=== PATIENT | female | born 1950 | race Caucasian/White ===

== ENCOUNTER 2021-07-08 07:48 | Day surgery (SDC) | payer MEDICARE, SELFPAY ==
--- NOTE | 2021-07-02 09:03 | EKG12_ITS ---
Test Reason : PRE OP Blood Pressure : / mmHG Vent. Rate : 060 BPM Atrial Rate : 060 BPM P-R Int : 146 ms QRS Dur : 080 ms QT Int : 446 ms P-R-T Axes : 058 038 044 degrees QTc Int : 446 ms Normal sinus rhythm Low voltage QRS Borderline ECG Confirmed by CESAR CHRISTIANSEN, SULMA ([id number]), technical writer and editor ADI CARDOZA ([id number]) on 07/06/2021 8:27:27 AM Referred By: Arun Sebastian Confirmed By:BRENDA GUERRERO MD
--- NOTE | 2021-07-02 09:05 | RAD_ITS ---
History: PREOP/BREAST CANCER LEFT EXAMINATION/TECHNIQUE: XR Chest 2 Views: COMPARISON: None FINDINGS: LINES/DEVICES: None. LUNGS: No consolidation, edema or effusion. No pneumothorax. MEDIASTINUM AND CARDIOVASCULAR STRUCTURES: Cardiac silhouette not enlarged. Central airways and mediastinal contour are unremarkable. Lobulated contour of the lateral aspect of the left hemidiaphragm consistent with diaphragmatic hernia. BONES AND SOFT TISSUES: Unremarkable. RAD/Chest PA and Lateral IMPRESSION: No radiographic evidence of acute cardiopulmonary disease. Left posterior diaphragmatic hernia. Recommend comparison with old studies or short-term follow-up. at 0939 Reported and signed by: Terrence Mariano MD Electronically Signed: Terrence Mariano MD at 9:38 EDT Tel , Service support ,
[2021-07-02 09:51] LABS: Hematocrit 44.5 % (37-47); Hemoglobin 14.9 g/dL (12.0-15.0); Mean Corp Hgb Conc 33.5 g/dL (32-36); Mean Corpuscular Hgb 29.9 pg (27.0-32.0); Mean Corpuscular Volume 89.2 fL (81-99); Mean Platelet Vol. 9.3 fl (6.2-12.0); Platelet Count 240 K/mm3 (150-450); RBC Distribution Width CV 12.4 % (11.6-14.6); RBC Distribution Width SD 40.8 fl (35.1-43.9); Red Blood Count 4.99 M/mm3 (4.2-5.4); White Blood Count 5.5 K/mm3 (4.4-11.0)
[2021-07-02 10:25] LABS: ALB/GLOB Ratio 0.9 RATIO (0.9-2.4); AST(SGOT) 18 U/L (15-37); Alanine Aminotransfer ALT/SGPT 25 U/L (13-56); Albumin, Serum 3.5 g/dL (3.2-5.0); Alkaline Phosphatase 80 U/L (45-117); Anion Gap 2 (5-15); BUN 16 mg/dL (7-18); BUN/Creat Ratio 26.1 RATIO (10-20); Calcium,Total 8.7 mg/dL (8.5-10.1); Chloride 110 mmol/L (98-107); Creatinine, Serum 0.61 mg/dL (0.55-1.02); EST Glomerular Filtration Rate 103 mL/min (>60); Est Glom Filt Rate - Afr Amer 125 mL/min (>60); Globulin 3.9 g/dL (2.2-4.2); Glucose 84 mg/dL (74-106); Potassium 3.4 mmol/L (3.5-5.1); Protein, Total 7.4 g/dL (6.4-8.2); Sodium Level 140 mmol/L (136-145)
[2021-07-08] VITALS (7 sets, daily range): BP systolic 125–142; BP diastolic 63–86; PULSE 60–69; RESP 16; TEMP 36.1–37; O2SAT 92–96; BMI 28.0
--- NOTE | 2021-07-08 | IMM_PTH ---
PATIENT: REBA [place]EC[place]FORD [place] [facility] [id number] AGE/SX: 70/F ROOM: RE07/08/[address]: Dr. Arun Sebastian MD : 1950 BED: DIS: 07/08/2021 SPEC #: [id number] RECD: 07/13/21 12:13 STATUS: KEYONNA REQ #: [id number] ARNIE: 07/08/21 00:[address]: Arun Sebastian DEPT: IMMUNOHISTOCHEMISTRY RECD BY: Giuliana Mejia ENTERED: 07/13/21 12:15 SP TYPE: IMMUNO OTHR DR: Dr. Angel Mcginnis MD Tissues: A - Axillary lymph node, NOS Procedures: CK7 (add) Pankeratin (initial) Pankeratin (add) PHYSICIAN & INSTITUTION [place] [id number] SPECIMEN INFORMATION: Tissue Source: A ? Left axillary sentinel lymph nodes, biopsy Clinical Info: Breast cancer Specimen Number: [id number] A1-A3 CPT code: 66684, 33469 x5 METHODOLOGY: Deparaffinized sections of prefer/formalin-fixed tissue or PAP/DQ stained slides are incubated with monoclonal/polyclonal antibodies/oligonucleotide probes. Localization is made via biotin free immunoperoxidase method. Appropriate controls are performed and reacted as expected. Results on target cell population are indicated in the following table: RESULTS: ANTIBODY / CLONE RESULT Block A1 AE1-3 (AE1/AE3/PCK26) negative CK7 (OV-TL12/30) negative Block A2 AE1-3 (AE1/AE3/PCK26) negative CK7 (OV-TL12/30) negative Block A3 AE1-3 (AE1/AE3/PCK26) negative CK7 (OV-TL12/30) negative These tests were developed and their performance characteristics determined by [facility]. They may not have been cleared or approved by the U.S. Food and Drug Administration. The FDA has determined that such clearance or approval is not necessary. The above immunohistochemical/dualISH markers are ordered and reviewed by the Pathologist. INTERPRETATION: A. Left axillary sentinel lymph nodes, biopsy: Three out of three lymph nodes, negative for metastatic carcinoma. SJ:phuc 07/14/2021
--- NOTE | 2021-07-08 | AXNB_PTH ---
PATIENT: REBA BECKFORD [place] [facility] [id number] AGE/SX: 70/F ROOM: RE07/08/[address]: Dr. Arun Sebastian MD : 1950 BED: DIS: 07/08/2021 SPEC #: [id number] RECD: 07/08/21 11:35 STATUS: KEYONNA RENuha #: [id number] ARNIE: 07/08/21 00:[address]: Arun Sebastian DEPT: SURGICAL PATHOLOGY RECD BY: Cheryl Nicole ENTERED: 07/08/21 13:05 SP TYPE: AX NODE BX OTHR DR: Dr. Angel Mcginnis MD Tissues: A - Axillary lymph node, NOS B - Breast, NOS Procedures: Frozen Section (charge) Frozen Section Add'l ([facility]) Surgery Specimen Level V HEADER OPERATION: Stereotactic wire localized lumpectomy PRE-OP DIAGNOSIS: Breast cancer TISSUE SUBMITTED: A. Left sentinel lymph node, B. Left breast mass FROZEN SECTION DIAGNOSIS A. Left axillary sentinel lymph nodes biopsy: Three out of 3 lymph nodes negative for carcinoma. AM:christal 07/08/21 MICROSCOPIC DIAGNOSIS A. Left axillary sentinel lymph nodes, biopsy: Three out of three lymph nodes negative for metastatic carcinoma. B. Left breast mass, needle localization lumpectomy: Invasive ductal carcinoma. See cancer summary in the comment section. SJ:phuc 07/13/2021 COMMENT A. Immunohistochemistry ([id number]) supports the above diagnosis. B. BREAST CANCER SUMMARY Procedure ? lumpectomy with wire-guided localization Specimen laterality ? left Invasive tumor: Tumor site ? upper inner quadrant as per EMR Tumor size ? 0.5 x 0.2 cm (measured microscopically) Histologic type ? invasive ductal carcinoma, not otherwise specified Histologic grade (Evelyn grade): Glandular/tubular differentiation score - 3 Nuclear pleomorphism score - 3 Mitotic count score - 2 Overall grade ? grade 3 (score of 8) Tumor focality ? single focus of invasive carcinoma Ductal carcinoma in situ ? not identified Tumor extension: Skin ? not present Nipple ? not applicable Skeletal muscle ? no skeletal muscle is present Margins: Invasive carcinoma margin ? The invasive carcinoma is 0.5 cm away from closest inferior margin. Ductal carcinoma in situ margin ? not applicable Regional lymph nodes: Number of lymph nodes examined ? 3 Number of sentinel lymph nodes examined - 3 Number of lymph nodes with macrometastases, micrometastases or isolated tumor cells - 0 Treatment effect ? no known presurgical therapy. Lymphvascular invasion ? not identified Dermal lymphvascular invasion ? not applicable Additional Pathologic Findings ? fibrocystic changes. Ancillary Studies: Previously performed at [facility] ([id number]) ER: Positive (50%, moderate) AR: Positive (10%, moderate to strong) [id number]: Equivocal (2+) [id number] AMAIRANI ? negative (non-amplified) Microcalcifications ? not identified Clinical History - Please make reference to previous specimen from [facility] ([id number]) left breast, ultrasound-guided core needle biopsy with diagnosis of ?invasive ductal carcinoma, grade 2-3.? PATHOLOGIC STAGE: pT1a pN0(sn) pMx The above summary is in compliance with [employer] [place] [employer] (CAP) Cancer Protocols Checklist and [place] Joint Committee on Cancer (AJCC), Staging Manual, 8th Ed. Case has been reviewed in consultation with Dr. Castañeda who concurs with the above diagnosis. IDC:AM MICROSCOPIC DESCRIPTION Slides are reviewed. GROSS DESCRIPTION A - Received fresh for frozen section consultation labeled with the patient's name is a specimen designated left sentinel lymph node. The specimen consists of two irregular fragments of cazares-yellow fibrofatty tissue. One fragment measures 2 x 2 x 0.7 cm and the other fragment measures 4 x 4 x 1.5 cm. Dissection of the fragments reveal three nodules resembling lymph nodes ranging in size from 0.5 to 2 cm. The specimen is totally submitted in three cassettes as follows: 1 & 2 - one lymph node bisected, 3??two lymph nodes. / AM:phuc 07/09/21 B - Received fresh for OR consultation labeled with the patient name and designated left breast mass. The specimen consists of an oriented fragment of cazares-yellow fibrofatty tissue containing a wire. The specimen measures 5 x 5 x 2 cm. The specimen weighs 21.8 gm. The specimen is differentially inked as follows: anterior - yellow, posterior - black, superior - blue, inferior - green, medial - red and lateral - orange. Serial sections reveal a 6 mm biopsy cavity with area of induration adjacent to it. This biopsy cavity and possible lesion is located 0.5 cm from its closest (inferior) margin of excision. This information is conveyed to the surgeon intraoperatively. [place] sections are submitted as follows: 1 & 2 - perpendicular inked margins, 3-5 - biopsy cavity with adjacent tissue, 6-12 - route service representative sections of uninvolved breast parenchyma. / AM:phuc 07/09/21 TC:0 CPT: 81570 x2, 88814, 39064 x2, 87079
[2021-07-08] MEDS: Lactated Ringers 1,000 ML 100 ML IV (08:00)
--- NOTE | 2021-07-08 08:00 | NM_ITS ---
PROCEDURE: NUCLEAR MEDICINE Injection Sorento Node - LEFT breast(s). REASON FOR EXAM: Female, 70 years old. Left breast cancer. TECHNIQUE: Sorento node localization using radionuclide methods of the LEFT breast(s) was performed following subcutaneous administration of 1.1 mCi of of sulfur colloid Tc-99m. FINDINGS: 1.1 mCi of technetium labeled sulfur colloid was injected subcutaneously in 4 equal aliquots in the medial periareolar region of the left breast. NM/Lymph Node Injection Only IMPRESSION: Subcutaneous injection of 1.1 mCi of Tc labeled sulfur colloid for sentinel node imaging. Electronically Signed: Wilian So MD at 8:58 EDT , Service support ,
--- NOTE | 2021-07-08 09:26 | PCM.HP.BLA ---
History and Physical Date of Admission: 07/08/21 Assessment and Plan Assessment and Plan (1) Breast cancer in female: Status: Acute Qualifiers: Breast location: upper inner quadrant of breast Estrogen receptor status: positive Laterality: left Qualified Code(s): C50.212 - Malignant neoplasm of upper-inner quadrant of left female breast; Z17.0 - Estrogen receptor positive status [ER+] Comment: June 22, 2021 I now have information from [facility] suggesting Her2 dual AMAIRANI was negative, nonamplified I would anticipate proceeding with definitive surgery pending hematology oncology consultation Arun Sebastian M.D., F.A.C.S. Recommendations had been made by Dr. Arturo Olivas for genetic testing preoperatively. If abnormal then bilateral mastectomy would be recommended. He states that the patient was not interested in pursuing this and having a delay in surgery. Please refer to his more complete consultation. Arun Sebastian M.D., Ryan.Silvina.C.S. 06/22/21 [id number]<Electronically signed by Arun Sebastian MD>Date Arun Sebastian MD cc: Dr. Arturo Olivas MD; Dr. Angel Mcginnis MD ~*Signed ADDENDUM by Dr. Arun Sebastian MD on 06/22/21 at 1212 Intake Chief Complaint: breast cancer--discuss surgery Allergies naproxen [From Naprosyn] Adverse Reaction (Unknown, Verified 06/21/21 15:20) Hives Medications NK 06/18/21 [History Confirmed 06/21/21] Assessment and Plan Assessment and Plan (1) Breast cancer in female: Status: Acute Qualifiers: Breast location: upper inner quadrant of breast Estrogen receptor status: positive Laterality: left Qualified Code(s): C50.212 - Malignant neoplasm of upper-inner quadrant of left female breast; Z17.0 - Estrogen receptor positive status [ER+] Comment: June 22, 2021 I now have information from [facility] suggesting Her2 dual AMAIRANI was negative, nonamplified I would anticipate proceeding with definitive surgery pending hematology oncology consultation Arun Sebastian M.D., F.A.C.S. 06/22/21 1212<Electronically signed by Arun Sebastian MD>Date Arun Sebastian MD cc: Dr. Arturo Olivas MD; Dr. Angel Mcginnis MD ~*Signed Intake Vital Signs 06/21/21 15:19 Height 5 ft 8 in Weight: 187 lb 2 oz BMI 28.4 BP 157/81 H Blood Pressure Location Rt brachial Position Sitting Respiration 20 H Pulse 68 Pulse Source NIBP Temp 97.8 F Temp Source Temporal Pulse Oximetry (%) 96 Oxygen Delivery Method room air Intake Visit Reasons: DISCUSS SURGERY Chief Complaint: breast cancer--discuss surgery Collection Clerk Required: No Is patient in pain?: No Allergies naproxen [From Naprosyn] Adverse Reaction (Unknown, Verified 06/21/21 15:20) Hives Medications NK 06/18/21 [History Confirmed 06/21/21] Is last menstrual period known: No Post menopausal: Yes Patient : No PFSH Medical History (Updated 06/21/21 @ 15:18 by Ban Daugherty) Breast cancer, left breast (~05/2021) History of colonic polyps Multinodular non-toxic goiter Surgical History (Updated 06/21/21 @ 15:18 by Ban Daugherty) History of colonoscopy (~03/2017) History of left breast biopsy (~05/2021) History of right breast biopsy (~1980) Family History (Updated 06/21/21 @ 15:19 by Ban Daugherty) Brother Colon cancer Hypertension Cancer Mother Breast cancer Sister Breast cancer Aunt Breast cancer Other Leukemia Lymphoma Throat cancer Social History Smoking Status: Never smoker alcohol intake: never substance use type: does not use HPI HPI HPI: REBA BECKFORD, is a 70 F who presents to the office today for surgical consultation in referral from Dr. Angel Mcginnis with biopsy identified left breast. In [facility] on May 25, 2021 screening mammography identified a well-defined ovoid mass for posterior medial left breast BI-RADS Category 0. Subsequently on June 03, 2021 a left breast ultrasound was obtained. The 10 o'clock position left breast 11 cm from the nipple there is a small rounded mass microlobulated measuring 5 x 4 x 3 mm biopsy recommended category 4. Subsequently on June 09, 2021 a ultrasound-guided needle core biopsy was performed of this lesion. Invasive ductal carcinoma grade 2-3 was identified measuring up to 0.5 cm in greatest length. Estrogen receptor was felt to be positive at 50%. Progesterone receptor is felt to be positive at 10%. HER-2/asif was equivocal 70-year-old female. G2, . Menarche at age 14. First child born when she was 30. She did breast-feed. She has had a remote excisional right breast biopsy when she was approximately 31. That was for benign palpable mass. She has not been on any estrogen replacement therapy. Family history is notable that her mother had breast cancer. 2 sisters had breast cancer. The patient has had a daughter who is undergone genetic testing which was negative. The patient has not had COVID-19. She and her have received Covid vaccination. ROS General General: Yes breast cancer; No weight change, appetite, fatigue, colon cancer or weakness HEENT HEENT: No difficulty swallowing, eye injury, eye surgery, swollen glands or hoarseness Endo Endocrine: No thyroid disease, diabetes mellitus, thyroid cancer, Hair loss, heat intolerance or cold intolerance Breast Breast: Yes abnormal mammogram and abnormal US; No left breast lump, right breast lump, nipple discharge, breast pain or breast enlargement Musc Musculoskeletal: No back problems, arthritis, rheumatoid arthritis, gout or joint pain Cardio Cardiovascular: No murmur, pacemaker, heart disease, atrial fibrillation, high blood pressure, heart attack, heart stent, palpitations, shortness of breat with exertion or chest pain Psych Psychiatric: No depression, anxiety or hearing voices Resp Respiratory: No shortness of breath, No sleep apnea, No cough, No COPD, No asthma, No emphysema and No wheezing Gastro Gastrointestinal: No abdominal pain, No nausea or vomiting, No diarrhea, No constipation, No blood in stool, No acid reflux, No hemorrhoids, No ulcers, No gallbladder problem and No black,tarry stools [place] Hematologic: No blood thinners, No blood disorders, No bleeding, No anemia and No blood clots Neuro Neurologic: No weakness Exam Const General: cooperative, healthy appearing, comfortable and no acute distress [facility] Head: normal to inspection Eyes General: appearance normal, both eyes and all related structures Neck Neck: normal visual inspection Carotids: normal carotid upstroke Other: No carotid bruits Chest Other: Right breast: No focal mass. Diffuse fibrous change upper outer quadrant right breast. No nipple discharge. No distortion. Left breast: Ecchymosis far medial left breast with almost suggestion of a palpable clip just beneath the skin 9 o'clock position. No drainage. No other focal mass. No axillary or clavicular adenopathy Resp Effort & Inspection: normal respiratory effort Auscultation: clear to auscultation bilaterally Cardio Rate: regular rate Rhythm: regular rhythm GI Palpation: soft and no hepatosplenomegaly Auscultation: normal bowel sounds Skin General: no rashes or lesions noted Neuro Cognition: normal cognition Extrem General: no calf tenderness Psych Appearance: grossly normal Assessment and Plan Assessment and Plan (1) Breast cancer in female: Status: Acute Qualifiers: Breast location: upper inner quadrant of breast Estrogen receptor status: positive Laterality: left Qualified Code(s): C50.212 - Malignant neoplasm of upper-inner quadrant of left female breast; Z17.0 - Estrogen receptor positive status [ER+] Plan - Dr. Arun Sebastian MD: 70-year-old female. Very small invasive ductal carcinoma medial left breast. She does have significant on breast tissue bilaterally. She does have a family history. She will be seeing Dr. Arturo Olivas tomorrow. I have personally reviewed her mammogram and ultrasounds. Her mammograms demonstrate diffuse fatty breast tissue bilaterally. Images appear clear. I have proposed for her breast conservation surgery left breast. I would propose a stereotactic wire localization medial left breast with nuclear tracer and blue dye left axillary sentinel lymph node biopsy followed up by radiotherapy. I described technique, benefit, risk, alternatives. She has had an opportunity to ask and have questions answered. We briefly discussed topics like Oncotype DX testing. We briefly discussed breast MRI. We discussed potential for mastectomy with or without reconstruction as well as prophylactic mastectomy on the right. She has had an opportunity to ask and have questions answered. At this point I do not believe that she requires a radical approach and would appear to nicely fall within the standard of care. We will tentatively look for scheduling date. I will anticipate further input from Dr. Arturo Olivas. I appreciate the opportunity of assisting with her surgical care. Copy: Dr. Angel Mcginnis and Dr. Arturo Sebastian M.D., F.A.C.S. The patient has elected to pursue breast conservation surgery upper inner quadrant left breast. She has had consultation with Dr. Arturo Olivas preoperatively. At this point she is comfortable with the current approach. She has had an opportunity to ask and have questions answered. We will proceed as noted. Arun Sebastian M.D., F.A.C.S.
--- NOTE | 2021-07-08 10:00 | BI_ITS ---
SURGICAL BREAST SPECIMEN RADIOGRAPH CLINICAL: Document presence of mass in biopsy specimen. FINDINGS: Specimen shows presence of mass. Electronically Signed: Wilian So MD at 12:27 EDT , Service support , BI/Breast Biopsy Specimen
--- NOTE | 2021-07-08 10:43 | PCM.OPRPT ---
Problems Associated Problem List Diagnoses (1) Breast cancer in female: (2) Breast cancer, left breast: Report of Operation Date of Procedure: 07/08/21 Pre-Operative Diagnosis: Upper inner left breast invasive ductal carcinoma Post-Operative Diagnosis: Same Surgery/Procedure Performed:: Stereotactic wire localization upper inner left breast. Wire localized left breast lumpectomy with left axillary blue dye and nuclear tracer sentinel lymph node biopsy Description of Surgical Findings:: Timeout and informed consent was obtained. 70-year-old female was taken to the mammography suite placed prone on table the left breast was placed in a medial lateral view. Images were obtained and a single target site was selected. Breast was prepped with Betadine. 1% lidocaine was used as a local anesthetic. A Kopan's needle was advanced to a depth +15 mm. Imaging demonstrated good localization. Sterile dressings were applied. She was subsequently taken back to the amatory surgery area and then subsequently taken to the operating for definitive surgical resection. The patient was taken to the operating room. She was placed upon the table. She underwent general anesthesia. The left breast was prepped with alcohol. 2 cc of isosulfan blue dye was injected retroareolar. Massage was performed for 3 minutes. Subsequently the left breast was sterilely prepped and draped. An oblique incision was made the left axilla the tract and the blue dye identified sharp and blunt electrocautery dissection performed down to a blue lymph node. Based upon this localization I excised a slightly enlarged lymph node that seemed to have somewhat of a conglomerate. Hemostasis obtained with electrocautery and hemoclips. There is additional adjacent smaller lymph node that I removed as well. I then performed nuclear counts on the lymph node took 1/10 of that and then reinspected the cavity. There was no palpable residual disease. There is no residual blue tracking lymph node and there was no additional 10% count remaining. So armed with the lack of visualized palpable nuclear tracer or blue dye residual lymph node tissue. 0.5% Marcaine was used as local anesthetic. The wound was closed with a deep layer interrupted 3-0 Vicryl and then a running septic or 4-0 Monocryl. A transverse incision was made in the medial aspect of the left breast guided by the wire localization circumferential dissection was performed the lesion was removed hemostasis obtained electrocautery a single stitch was exited medially a short stitch superiorly and a longer suture laterally. The specimen is sent for mammography with a marking clip was noted to be centrally placed. It was then sent to pathology. Adequate resection was felt to been achieved. The medial breast wound was closed with a deep suture of interrupted 3-0 Vicryl and then a running septic or 4 Monocryl. Steri-Strips Telfa OpSite dressings followed by bulky dry dressings were applied. Sponge and instrument and needle counts were reported the surgeon to be correct Drains none. Specimen left axillary sentinel lymph nodes and left breast mass. Blood loss minimal The patient was taken to recovery room in satisfactory addition without apparent complication Arun Sebastian M.D., F.A.C.S. Surgeon: Arun Sebastian Type of Anesthesia: General Anesthesiologist: Letitia Campbell
--- NOTE | 2021-07-08 10:48 | EX.PCM.DISCH ---
Discharge Instructions Procedure Breast Surgery Diet Discharge Diet: No restrictions Activity Discharge Activity: May Not Drive (for 2-3 days or while taking narcotic pain meds.) May shower in (days): 1 Lifting Restrictions: 10 pounds for 1 week. Dressing / Incision Call your doctor if your incision/area has: Continuous Slow Oozing and Sudden Increased Bleeding Call your doctor if you observe: Fever of 101 or Higher Suture Line Care: Avoid Pulling/Pushing and Avoid Pinching/Bending Remove Dressing in: 1 day Additional Dressing/Incision Instructions:: Remove bulky dressing tomorrow. May leave any opsite dressing for 3-4 days. Keep dressing in place until your follow-up appointment. Follow Up Care Test Results: Test results from this visit will be discussed in further detail at your follow-up appointment, if applicable. Discharge Plan Admission Attending Provider: Arun Sebastian Primary Care Provider: Angel Mcginnis Discharge Orders/Prescriptions Prescriptions: No Action NK RF: 0
[2021-07-08] MEDS: Isosulfan Blue 1% 5 ML Vial (11:05)
[2021-07-08] MEDS: Bupivacaine Mpf 0.5% 30 ML VIAL (12:01)
== END 2021-07-08 14:43 | disposition home or self-care (01) ==
LOC: SDC 07:53 → AC 07:54
PROVIDERS: PCP Family Medicine; Referring Provider Surgery; Visit Provider Surgery
PROC: (CPT 19301; principal; 2021-07-08 11:15)
DX: C50.212 Malignant neoplasm of upper-inner quadrant of left female breast (principal); Z17.0 Estrogen receptor positive status [ER+]; R59.0 Localized enlarged lymph nodes
CPT/HCPCS: 00400; 19301; 38525; 19281; 36415; 38792; 71046; 76098; 80053; 85027; 88305; 88307; 88331; 88332; 88341; 88342; 93005; A9541; J7120; J2405; Q9968

== ENCOUNTER → 2021-08-03 10:19 | Outpatient (CLI) | payer MEDICARE, SELFPAY ==
--- NOTE | 2021-08-03 10:28 | BD_ITS ---
STUDY: DUAL ENERGY X-RAY ABSORPTIOMETRY / DXA REASON FOR EXAM: Female, 70 years old. BREAST CANCER USE OF AI - SCREENING TECHNIQUE: Bone Mineral Density (BMD) measurements of lumbar spine and bilateral hips were obtained. COMPARISON: None. FINDINGS: Lumbar Spine (L1-L4): g/cm2 (1.070) / T-score (0.2) / Z-score (2.2) Findings are suggestive of normal bone density with a low fracture risk. Left Femur Total: g/cm2 (0.944) / T-score (0.0) / Z-score (1.4) Left Femoral Neck: g/cm2 (0.818) / T-score (-0.3) / Z-score (1.4) Right Femur Total: g/cm2 (0.929) / T-score (-0.1) / Z-score (1.3) Right Femoral Neck: g/cm2 (0.734) / T-score (-1.0) / Z-score (0.7) BD/Dexa Bone Density Study IMPRESSION: The patient is considered normal as outlined below according to World Ezequiel Organization (WHO) criteria with a low fracture risk. Reference Information: The T-score is the number of standard deviations above or below the standard which is normal for young adults at their peak bone mineral density. The World Health Organization (WHO) interprets the T-scores as follows: Above -1 Normal bone density Between -1 and -2.5 Osteopenia Equal to / or below -2.5 Osteoporosis As a practical clinical guideline, osteopenia may be graded as follows: Mild -1 through -1.5 Moderate -1.6 through -2.0 Severe -2.1 through -2.4 The Z-score is the number of standard deviations above or below age-matched controls. A Z-score of less than -1.5 would be considered abnormal. References: 1. NIH Osteoporosis and Related Bone Diseases www osteo.org 2. International Society for Clinical Densitometry www iscd.org 3. National Osteoporosis Foundation www nof.org Electronically Signed: Wilian So MD at 13:47 EDT , Service support ,
== END ==
PROVIDERS: PCP Family Medicine; Referring Provider Internal Medicine Hematology & Oncology; Visit Provider Internal Medicine Hematology & Oncology
DX: C50.919 Malignant neoplasm of unspecified site of unspecified female breast (principal); Z79.811 Long term (current) use of aromatase inhibitors
CPT/HCPCS: 77080

== ENCOUNTER → 2021-08-12 06:51 | Outpatient (CLI) | payer MEDICARE, SELFPAY ==
--- NOTE | 2021-08-12 06:53 | CT_ITS ---
STUDY: CT CHEST WITH CONTRAST REASON FOR EXAM: Female, 70 years old. Abnormality in left lung on planning scan for RT RADIATION DOSAGE (If Supplied By Facility): CTDIvol = ( 14.74 ) mGy, DLP = ( 400.06 ) mGycm TECHNIQUE: Transaxial imaging was performed following intravenous administration of IV 100mL Isovue-370. Multiplanar coronal and sagittal images were reformatted. Individualized dose optimization techniques were used for this CT. COMPARISON: None. FINDINGS: Surgical clips are seen in the left axillary region. At the operative site, there is evidence of a 1.8 cm x 1.4 cm well-defined hypodensity suggestive of possible postoperative change. There is evidence of a 6.9 cm x 6.7 cm x 6.7 cm solid mass in the peripheral lateral aspect of the left lower lobe. Central calcifications are seen within it. This abuts the pleural surface. Focal nodular pleural thickening along the posterior medial aspect of the right lower lobe measuring 4 mm. There is no demonstrated pleural abnormality. Normal heart and pericardium. Normal mediastinum. Normal hilar regions. Normal enhanced pulmonary arteries. Normal aorta arch and descending thoracic aorta. There are degenerative changes of the thoracic spine. There is a 6 mm well-defined lucency in the posterior aspect of the L1 vertebrae. There is a 1 cm cyst in the dome of the right lobe of the liver. There is also evidence of a 6 cm x 5.3 cm cyst in the inferior aspect of the right liver. Small hiatal hernia. CT/Chest WITH Contrast IMPRESSION: 6.9 cm x 6.7 cm x 6.7 cm solid mass in the peripheral lateral aspect of the left lower lobe abutting the pleural surface. Postoperative changes in the left axillary region. Hepatic cysts. Electronically Signed: Wilian So MD at 13:35 EDT , Service support ,
[2021-08-12 07:06] LABS: CREATININE FINGERSTICK < 0.6 mg/dL (0.55-1.02); EGFR FINGERSTICK > 60.0000 mL/min (>60)
== END ==
PROVIDERS: PCP Family Medicine; Referring Provider Student in an Organized Health Care Education/Training Program; Visit Provider Student in an Organized Health Care Education/Training Program
DX: C50.912 Malignant neoplasm of unspecified site of left female breast (principal)
CPT/HCPCS: 71260; Q9967; A4216

== ENCOUNTER → 2021-08-17 08:19 | Outpatient (CLI) | payer MEDICARE, SELFPAY ==
[2021-08-17] VITALS (11 sets, daily range): BP systolic 123–155; BP diastolic 46–81; PULSE 53–65; RESP 11–18; TEMP 36.6; O2SAT 96–99; BMI 27.9
--- NOTE | 2021-08-17 | IMM_PTH ---
PATIENT: REBA BECKFORD LOC: CT U#:[id number] AGE/SX: 74/F ROOM: RE08/17/[address]: Dr. Kan Ang DO : 1950 BED: DIS: SPEC #: [id number] RECD: 08/18/21 12:55 STATUS: KEYONNA REQ #: [id number] ARNIE: 08/17/21 00:[address]: Kan Ang DEPT: IMMUNOHISTOCHEMISTRY RECD BY: Giuliana Mejia ENTERED: 08/18/21 12:58 SP TYPE: IMMUNO OTHR DR: Dr. Angel Mcginnis MD Tissues: Left lower lobe of lung, NOS Procedures: NAPSIN A (add) Kendell Ret (add) CD34 (add) CK7 (add) CK8 (add) KY (add) TTF1 (add) Vimentin (add) Pankeratin (add) ER (initial) PHYSICIAN & INSTITUTION [address] [address] SPECIMEN INFORMATION: Tissue Source: Left lower lung mass Clinical Info: Left lung mass / left breast CA Specimen Number: [id number] CPT code: 18775, 47842 x9 METHODOLOGY: Deparaffinized sections of prefer/formalin-fixed tissue or PAP/DQ stained slides are incubated with monoclonal/polyclonal antibodies/oligonucleotide probes. Localization is made via biotin free immunoperoxidase method. Appropriate controls are performed and reacted as expected. Results on target cell population are indicated in the following table: RESULTS: ANTIBODY / CLONE RESULT ER (6F11) negative KY (1E2) negative AE1-3 (AE1/AE3/PCK26) negative CK7 (OV-TL12/30) negative CK8 (25zrumX14) negative Vimentin (V9) positive CD34 (QBEnd-10) positive TTF-1 (8G7G3/1) negative Napsin A (Rabbit Polyclonal) negative CALRET (polyclonal) negative These tests were developed and their performance characteristics determined by [facility]. They may not have been cleared or approved by the U.S. Food and Drug Administration. The FDA has determined that such clearance or approval is not necessary. The above immunohistochemical/dualISH markers are ordered and reviewed by the Pathologist. INTERPRETATION: Left lower lung mass, CT-guided core biopsy: Solitary fibrous tumor. See comment. Renetta 08/23/2021 Comment: Immunohistochemistry profile performed here and also additional immunohistochemical stains performed at [facility] supports the above diagnosis. The specimen is sent to [facility] for expert opinion, reviewed by Dr. Felicia Cuba and the above diagnosis is rendered. The complete report is viewable in the patient's EMR. Case has been reviewed in consultation with Dr. Castañeda who concurs with the above diagnosis. IDC:[email or web address]
--- NOTE | 2021-08-17 | ASPIGT_PTH ---
PATIENT: REBA BECKFORD LOC: [place] U#:[id number] AGE/SX: 74/F ROOM: RE08/17/[address]: Dr. Kan Ang DO : 1950 BED: DIS: SPEC #: [id number] RECD: 08/17/21 11:13 STATUS: KEYONNA RENuha #: [id number] ARNIE: 08/17/21 00:[address]: Kan Ang DEPT: SURGICAL PATHOLOGY RECD BY: Dank Foster ENTERED: 08/17/21 11:14 SP TYPE: ASP RAD OTHR DR: Dr. Angel Mcginnis MD Tissues: Lung, NOS Procedures: FNA Specimen Adequacy Special Stain Group II Surgery Specimen Level IV Imprint (control) HEADER OPERATION: CT-guided left lung mass biopsy PRE-OP DIAGNOSIS: Left lung mass / left breast CA TISSUE SUBMITTED: Left lower lung mass 20-gauge core x5 MICROSCOPIC DIAGNOSIS Left lower lung mass, CT-guided core biopsy: Solitary fibrous tumor. See comment. SJ:rg 08/23/2021 COMMENT The specimen is evaluated at the time of biopsy by Dr. Chavez. Immediate Evaluation = Negative for malignant cells. The specimen is sent to [facility] for expert opinion, reviewed by Dr. Felicia Cuba and the above diagnosis is rendered. The complete report is viewable in the patient's EMR. Immunohistochemistry ([id number]) performed and additional immunohistochemical stains performed at [facility] supports the above diagnosis. Please also make reference to previous specimen [id number], left breast mass, needle localization lumpectomy with diagnosis of ?invasive ductal carcinoma?. This case was discussed with Dr. Ang on 08/19/21. Case has been reviewed in consultation with Dr. Castañeda who concurs with the above diagnosis. IDC:AM MICROSCOPIC DESCRIPTION Slides are reviewed. GROSS DESCRIPTION Received in fixative is one container labeled with the patient's name and designated left lung mass. The specimen consists of multiple elongated fragments of cazares soft tissue that in aggregate measure 2 x 0.3 x 0.1 cm. The specimen is totally submitted in one cassette. Three touch imprints are prepared at the time of core biopsy. / FARIDA:phuc 08/17/21 TC:1 CPT: 21692, 43980
--- NOTE | 2021-08-17 08:22 | CT_ITS ---
PROCEDURE: CT GUIDED CORE NEEDLE BIOPSY OF A left lower lobe LUNG LESION INDICATION: Female, 70 years old. Incidental left lung mass, biopsy to eval path PHYSICIAN: Dr. KYLE Dickinson CONSENT: Written informed consent was obtained having explained the risks, benefits and alternatives in detail with the patient who accepted the risks and agreed to proceed. Laboratory review and clinical assessment was performed. CONSCIOUS SEDATION PROTOCOL: The Drugs used were: 2 mg Versed, IV., and 50 mcg conscious sedation was started at 9:30 AM and terminated at 9:45 AM. Fentanyl, IV. The sedation time was: 15 minutes. The conscious sedation protocol was independently monitored. RADIATION DOSAGE (If Supplied By Facility): CTDIvol = ( 20 ) mGy, DLP = ( 337.5 ) mGycm Individualized dose optimization techniques were used for this CT. TECHNIQUE: The patient was placed in the prone position. A noncontrast CT was performed to localize the lesion in the left lower lobe . The skin surface was prepped and draped in a sterile fashion. 1% lidocaine was used for local anesthesia. Using CT guidance, a 20 coaxial biopsy device was advanced to the periphery of the lesion. A total of 5 core specimens were obtained. The specimens were placed in a formalin solution. A post procedure CT demonstrated no adverse sequelae or pneumothorax. The patient tolerated the procedure well without adverse event. A negative biopsy does not exclude malignancy. Further imaging or clinical followup based on patient condition and degree of clinical suspicion for malignancy. Suggest rebiopsy, if biopsy results do not match with clinical scenario. CT/Biopsy/Inj or Needle Placement IMPRESSION: 1. CT directed core needle biopsy of the left lower lobe lesion using CT image guidance with image documentation as described. Pathology results are pending. 2. Conscious Sedation protocol utilized with independent monitoring. Electronically Signed: Wilian So MD at 11:17 EDT , Service support ,
[2021-08-17 08:40] LABS: Platelet Count 222 K/mm3 (150-450)
[2021-08-17 08:49] LABS: Prothrombin Time (Protime)PT. 12.6 SECONDS (11.7-14.9)
[2021-08-17 08:50] LABS: Partial Thromboplast Time 29.2 Seconds (24.1-36.2)
[2021-08-17] MEDS: 0.9% Saline Lock 10 ML Syringe IV (09:15)
[2021-08-17] MEDS: fentaNYL 100 MCG/2 ML Ampul IV (09:30)
[2021-08-17] MEDS: Midazolam 2 MG/2 ML Syringe IV (09:30)
[2021-08-17] MEDS: Lidocaine 2% (20 ml mdv) 20 ML Vial INFILT (09:35)
--- NOTE | 2021-08-17 09:50 | RAD_ITS ---
STUDY: X-RAY CHEST REASON FOR EXAM: Female, 70 years old. Pneumothorax -- immediately post lung biopsy TECHNIQUE: AP inspiration and expiration views. COMPARISON: Comparison is made with prior study dated 07/02/2021. FINDINGS: EKG electrodes are seen. Tiny left apical pneumothorax on the immediate post left lung biopsy radiographs. Stable soft tissue mass at the left lung base. RAD/Chest Insp/Exp 2 View IMPRESSION: Tiny left apical pneumothorax on the immediate post left lung biopsy radiograph. The patient is asymptomatic. Electronically Signed: Wilian So MD at 12:41 EDT , Service support ,
--- NOTE | 2021-08-17 11:50 | RAD_ITS ---
STUDY: X-RAY CHEST REASON FOR EXAM: Female, 70 years old. Pneumothorax -- 2 hours post lung biopsy TECHNIQUE: AP inspiration and expiration views. COMPARISON: Comparison is made with prior examination done earlier in the day. FINDINGS: Minimal residual left apical pneumothorax. This has decreased in size as compared to prior examination. RAD/Chest Insp/Exp 2 View IMPRESSION: Minimal residual left apical pneumothorax. The patient is asymptomatic. Electronically Signed: Wilian So MD at 15:11 EDT , Service support ,
== END | disposition home or self-care (01) ==
PROVIDERS: PCP Family Medicine; Referring Provider Student in an Organized Health Care Education/Training Program; Visit Provider Student in an Organized Health Care Education/Training Program
DX: D14.32 Benign neoplasm of left bronchus and lung (principal); C50.212 Malignant neoplasm of upper-inner quadrant of left female breast; Z17.0 Estrogen receptor positive status [ER+]
CPT/HCPCS: 32408; 36415; 71046; 77012; 85049; 85610; 85730; 88172; 88305; 88313; 88341; 88342; 99156; J7040

== ENCOUNTER → 2021-09-22 09:13 | Outpatient (CLI) | payer MEDICARE, SELFPAY ==
--- NOTE | 2021-09-22 09:17 | STEWCON_ITS ---
Reason For Study: Lung Tumor; Pre-Op Stress Results Protocol: Eran Protocol WITH DEFINITY Maximum Predicted HR: 152 bpm Target HR: 129 bpm % Maximum Predicted HR: 102 % DurationHeart Rate Stage (mm:ss) (bpm) BP Comment Baseline 66 122/82No Chest Pain; 5 ML Diluted Definity Eran Protocol Stage I 3:00 111 130/80No Chest Pain Eran Protocol Stage II 3:00 126 132/70No Chest Pain; Mild Dyspnea Eran Protocol Stage III 3:00 155 144/64No Chest Pain; Mod Dyspnea Recovery 90 116/76No Chest Pain; No Dyspnea Stress Duration: 9:00 mm:ss Maximum Stress HR: 155 bpm METS: 10 Baseline Echocardiogram Findings Stress Echo Wall motion Data Resting WM Intermediate WM Stress WM ECHO/Stress Test Echo W/Contrast Interpretation Summary Exercise stress echocardiogram. 70-year-old lady with a history of lung carcinoma for preop evaluation. Stress protocol: Resting EKG demonstrates normal sinus rhythm with a rate of 65 bpm normal inter vals are noted resting blood pressure is 122/82 mmHg. The patient exercised according to the r egular Rean protocol for total duration of 9 minutes. The maximum heart rate attained was 160 bpm wh ich was 105% of max impact at heart rate the maximum workload was 10.1 metabolic equivalents. At re st there were no ST or T wave changes noted suggest ischemia and at peak exercise upsloping ST julien ges were noted with did not meet the criteria for ischemia. No clinical angina was noted. The resti ng blood pressure was 122/82 with a peak blood pressure 144/64 mmHg which was a good blood pressure r esponse to exercise. Stress echocardiogram. Resting echocardiogram was performed with Definity enhancement demonstrating ej ection fraction of 55%. At peak exercise there was thickening of all ramirez and reduction of low ve ntricular cavity size peaking at 70%. No wall motion abnormalities were noted. Conclusion: Exercise stress echo with no EKG criteria for ischemia at a high workload. Excellent functional capacity. Normal stress echocardiographic imaging. Ordering Physician: Lian Tony Referring Physician: Srdihar Fay Performed By: Patricia Maciel, ROSALINA, RVT
--- NOTE | 2021-09-22 15:35 | PFTCOMP_ITS ---
COMPLETE PULMONARY FUNCTION TEST INTERPRETATION Brief HPI: Patient is a 70 year old female, currently under the care of Dr. Tony, who presents to [facility] for complete pulmonary function tests secondary to diagnosis of left lung mass. Respiratory therapist reports good effort and reproducible results. Interpretation: Forced expiration spirometry shows no large airways obstructive ventilatory defect with an FEV1 of 87% predicted. There is no significant bronchodilator response by strict ATS criteria. Spirograms are of good quality and plateau normally. The respiratory flow volume loop shows a normal pattern. Lung volumes by body plethysmography show a normal total lung capacity at 5.67 L, 101% predicted. All other lung volumes are within normal limits. Diffusion capacity by carbon monoxide is normal at 80% predicted. The airway resistance is elevated. No previous pulmonary function tests were available for review. Impression: Normal pulmonary function studies. Patient would tolerate up to a pneumonectomy by the latest guidelines.
== END ==
PROVIDERS: PCP Family Medicine
DX: D49.2 Neoplasm of unspecified behavior of bone, soft tissue, and skin (principal); R91.8 Other nonspecific abnormal finding of lung field; R06.09 Other forms of dyspnea
CPT/HCPCS: 93017; 93350; 94060; 94726; 94729; Q9957; A4216; C8928; J3490

== ENCOUNTER → 2022-05-30 | Outpatient (CLI) | payer MEDICARE, SELFPAY ==
--- NOTE | 2022-05-30 08:53 | BI_ITS ---
MAMMOGRAPHY - BILATERAL SCREENING 3-D TOMOSYNTHESIS REASON FOR EXAM: Female, 71 years old. Routine screening PERTINENT HISTORY: Strong family history. TECHNIQUE: 2-D mammograms and 3-D Tomosynthesis of the breast (s) were performed. CAD was performed. COMPARISON: 05/24/2021 FINDINGS: The breast composition is heterogeneously dense that can obscure small breast masses. Scattered benign calcifications are seen. No dense spiculated masses or suspicious microcalcifications are identified. No architectural distortion is identified. There is no skin thickening or retraction. There has been no significant change since the prior study. BI/SCRN MAMM (CAD)W/CRIS BILAT IMPRESSION: No mammographic signs of malignancy. Routine yearly mammograms recommended. ASSESSMENT CATEGORY: BIRADS Category 2: Benign. A letter regarding these results will be sent to the patient by the facility within 30 days. FOLLOW UP RECOMMENDATION: Yearly follow up mammogram recommended. (A) Approximately 10% of breast cancers are not detected by mammography. A normal mammogram should not delay biopsy of a clinically suspicious abnormality. Electronically Signed: Michel Alberto MD at 14:50 EDT ,
== END | disposition home or self-care (01) ==
LOC: OPBI 08:53
PROVIDERS: PCP Family Medicine; Visit Provider Surgery
DX: Z12.31 Encounter for screening mammogram for malignant neoplasm of breast (principal)
CPT/HCPCS: 77063; 77067

== ENCOUNTER → 2023-05-31 | Outpatient (CLI) | payer MEDICARE, SELFPAY ==
--- NOTE | 2023-05-31 10:50 | BI_ITS ---
MAMMOGRAPHY - BILATERAL SCREENING REASON FOR EXAM: Female, 72 years old. Routine annual screening examination. PERTINENT HISTORY: Personal history of breast cancer. Prior left lumpectomy with radiation therapy. Sisters with breast cancer. Aunts with breast cancer. TECHNIQUE: Digital bilateral breast cris (3D mammographic acquisition) in the CC and MLO projections. 2-D mediolateral oblique (MLO) and craniocaudad (CC) views of both breasts were obtained. CAD: Full Field Digital Mammography with Computer Added Detection was performed. COMPARISON: Comparison is made with prior study May 30, 2022 and July 08, 2021. FINDINGS: Breast Composition: The breasts are heterogeneously dense, which may obscure small masses. There are no dominant masses or suspicious calcifications. Surgical clips are seen in the left axilla. Mild architectural distortion in the retroareolar region of the left breast in keeping with prior lumpectomy. No other significant abnormalities are identified. There has been no significant change since the prior study. BI/SCRN MAMM (CAD)W/CRIS BILAT IMPRESSION: Stable bilateral screening mammogram. Yearly follow-up mammogram recommended. (A) ASSESSMENT CATEGORY: BIRADS Category 2: Benign. A letter regarding these results will be sent to the patient by the facility within 30 days. Approximately 10% of breast cancers are not detected by mammography. A normal mammogram should not delay biopsy of a clinically suspicious abnormality. [id number] Electronically Signed: Wilian So MD at 12:21 EDT ,
== END | disposition home or self-care (01) ==
PROVIDERS: PCP Family Medicine; Referring Provider Student in an Organized Health Care Education/Training Program; Visit Provider Student in an Organized Health Care Education/Training Program
DX: Z12.31 Encounter for screening mammogram for malignant neoplasm of breast (principal); Z85.3 Personal history of malignant neoplasm of breast; Z80.3 Family history of malignant neoplasm of breast
CPT/HCPCS: 77063; 77067

== ENCOUNTER 2023-08-08 10:45 | Outpatient (CLI) | payer MEDICARE, SELFPAY ==
--- NOTE | 2023-08-08 10:52 | BD_ITS ---
STUDY: DUAL ENERGY X-RAY ABSORPTIOMETRY / DXA REASON FOR EXAM: Female, 72 years old. ANNUAL SCREENING TECHNIQUE: Bone Mineral Density (BMD) measurements of lumbar spine and bilateral hips were obtained. COMPARISON: Comparison is made with prior study August 03, 2021. FINDINGS: Lumbar Spine (L1-L4): g/cm2 (0.997) / T-score (-0.5) / Z-score (1.7) Findings are suggestive of normal bone density with a low fracture risk. Left Femur Total: g/cm2 (0.875) / T-score (-0.5) / Z-score (1.0) Left Femoral Neck: g/cm2 (0.807) / T-score (-0.4) / Z-score (1.5) Right Femur Total: g/cm2 (0.848) / T-score (-0.8) / Z-score (0.8) Right Femoral Neck: g/cm2 (0.743) / T-score (-1.0) / Z-score (0.9) The T-Scores on the most recent prior examination were: Lumbar Spine (L1-L4): There has been worsening of bone density since the previous examination. Left Femur Total: which represents a worsening of 7.3%. Right Femur Total: which represents a worsening of 8.7%. BD/Dexa Bone Density Study IMPRESSION: The patient is considered normal as outlined below according to World Ezequiel Organization (WHO) criteria with a low fracture risk. There has been worsening of bone density since the previous examination. Reference Information: The T-score is the number of standard deviations above or below the standard which is normal for young adults at their peak bone mineral density. The World Health Organization (WHO) interprets the T-scores as follows: Above -1 Normal bone density Between -1 and -2.5 Osteopenia Equal to / or below -2.5 Osteoporosis As a practical clinical guideline, osteopenia may be graded as follows: Mild -1 through -1.5 Moderate -1.6 through -2.0 Severe -2.1 through -2.4 The Z-score is the number of standard deviations above or below age-matched controls. A Z-score of less than -1.5 would be considered abnormal. References: 1. NIH Osteoporosis and Related Bone Diseases www osteo.org 2. International Society for Clinical Densitometry www iscd.org 3. National Osteoporosis Foundation www nof.org Electronically Signed: Wilian So MD at 12:49 EDT ,
== END 2023-08-08 23:59 | disposition home or self-care (01) ==
LOC: OPBD 10:45
PROVIDERS: PCP Family Medicine; Referring Provider Internal Medicine Hematology & Oncology; Visit Provider Internal Medicine Hematology & Oncology
DX: Z13.820 Encounter for screening for osteoporosis (principal); Z79.811 Long term (current) use of aromatase inhibitors
CPT/HCPCS: 77080

== ENCOUNTER → 2024-06-07 | Outpatient (CLI) | payer MEDICARE, SELFPAY ==
--- NOTE | 2024-06-07 08:48 | BI_ITS ---
MAMMOGRAPHY - BILATERAL SCREENING 3-D TOMOSYNTHESIS REASON FOR EXAM: Female, 73 years old. follow up treated breast cancer, annual screening PERTINENT HISTORY: No significant family history. TECHNIQUE: 2-D mammograms and 3-D Tomosynthesis of the breast (s) were performed. CAD was performed. COMPARISON: 05/31/2023 FINDINGS: The breast composition is composed of scattered fibroglandular density. Scattered benign calcifications are seen. No dominant mass. Grouped punctate calcifications in the upper-outer quadrant right breast and magnification views recommended for further evaluation. No suspicious calcifications left breast.. No architectural distortion is identified. There is no skin thickening or retraction. BI/SCRN MAMM (CAD)W/CRIS BILAT IMPRESSION: Further imaging evaluation is recommended. ASSESSMENT CATEGORY: BIRADS Category 0: Incomplete. Need additional imaging evaluation as above. A letter regarding these results will be sent to the patient by the facility within 30 days. FOLLOW UP RECOMMENDATION: Additional imaging recommended as above. (E) Approximately 10% of breast cancers are not detected by mammography. A normal mammogram should not delay biopsy of a clinically suspicious abnormality. Electronically Signed: Mamadou Patino MD at 13:39 EDT ,
== END | disposition home or self-care (01) ==
LOC: OPBI 08:47
PROVIDERS: PCP Family Medicine; Referring Provider Student in an Organized Health Care Education/Training Program; Visit Provider Student in an Organized Health Care Education/Training Program
DX: Z12.31 Encounter for screening mammogram for malignant neoplasm of breast (principal)
CPT/HCPCS: 77063; 77067

== ENCOUNTER → 2024-06-12 | Outpatient (CLI) | payer MEDICARE, SELFPAY ==
--- NOTE | 2024-06-12 08:24 | BI_ITS ---
MAMMOGRAPHY - UNILATERAL DIAGNOSTIC: RIGHT BREAST REASON FOR EXAM: Female, 73 years old. Abnormal screening mammogram. PERTINENT HISTORY: Non-contributory. TECHNIQUE: Magnification spot views of the right breast were obtained in the mediolateral oblique and craniocaudad projections. CAD: Full Field Digital Mammography with Computer Added Detection was performed. COMPARISON: Comparison is made with prior study dated June 07, 2024. FINDINGS: Breast Composition: There are scattered areas of fibroglandular density. The microcalcifications are persistent. Biopsy recommended. No other significant abnormalities are identified. BI/DIAG MAMM W/CAD, UNILAT IMPRESSION: The microcalcifications are once again seen. Biopsy recommended. ASSESSMENT CATEGORY: BIRADS Category 4: Suspicious - Biopsy Should Be Considered. A letter regarding these results will be sent to the patient by the facility within 30 days. Approximately 10% of breast cancers are not detected by mammography. A normal mammogram should not delay biopsy of a clinically suspicious abnormality. Electronically Signed: iWlian So MD at 9:45 EDT ,
== END | disposition home or self-care (01) ==
LOC: OPBI 08:21
PROVIDERS: PCP Family Medicine; Referring Provider Student in an Organized Health Care Education/Training Program; Visit Provider Student in an Organized Health Care Education/Training Program
DX: R92.8 Other abnormal and inconclusive findings on diagnostic imaging of breast (principal)
CPT/HCPCS: 77065

== ENCOUNTER → 2024-06-19 | Outpatient (CLI) | payer MEDICARE, SELFPAY ==
--- NOTE | 2024-06-19 | BRBX_PTH ---
PATIENT: REBA BECKFORD LOC: [facility] U#:[id number] AGE/SX: 73/F ROOM: RE06/19/[address]: Dr. Shane Kiran MD : 1950 BED: DIS: 06/19/2024 SPEC #: [id number] RECD: 06/19/24 12:01 STATUS: KEYONNA BALL #: [id number] ARNIE: 06/19/24 00:[address]: Shane Kiran DEPT: SURGICAL PATHOLOGY RECD BY: Cheryl Nicole ENTERED: 06/19/24 12:14 SP TYPE: BREAST BX ABHIJEET DR: Dr. 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 See cancer summary in the comment section. FARIDA/ 06/20/2024 COMMENT INVASIVE BREAST CANCER SUMMARY: Procedure: Stereotactic core biopsy Specimen Laterality: Right Tumor site: Upper outer quadrant Histologic type: Invasive ductal carcinoma Provisional Histologic grade: Glandular/tubule Differentiation Score: 3 Nuclear Pleomorphism Score: 2 Mitotic Rate Score: 1 Overall grade: Grade 2 (score of 6) Tumor Size (greatest dimension): the tumor measures 0.4cm in greatest length Ductal Carcinoma In situ: Present Architectural Pattern: Comedo and solid Nuclear Grade: Grade 3 (high) Necrosis: Present, central (expansive comedo necrosis) Ductal carcinoma in situ comprises about 50% of the tumor volume. Angiolymphatic Invasion: Not identified Microcalcifications: Present in ductal carcinoma in situ and non-neoplastic tissue Additional Findings: Fibrocystic changes Breast Marker Study: [id number] ER: positive (29%, weak intensity) KS: negative (0%) Her2: positive (3+) Ki67: positive, low, 21% [id number]: not applicable The above summary is in compliance with [employer] (CAP) Cancer Protocols Checklist and [place] Joint Committee on Cancer (AJCC), Staging Manual, 8th Ed. Case has been reviewed in consultation with Dr. Castañeda who concurs with the above diagnosis. IDC:AM MICROSCOPIC DESCRIPTION Slides are reviewed. GROSS DESCRIPTION Received is one container labeled with the patient's name and not further designated. The specimen consists of multiple elongated fragments of cazares-yellow fibroadipose tissue measuring in aggregate 3.0 x 2.5 x 0.3cm. The entire specimen is submitted in one cassette. mr MERLIN 06/19/2024 TC:0 CPT:00143
--- NOTE | 2024-06-19 | IMM_PTH ---
PATIENT: REBA BECKFORD LOC: [facility] U#:[id number] AGE/SX: 73/F ROOM: RE06/19/[address]: Dr. Shane Kiran MD : 1950 BED: DIS: 06/19/2024 SPEC #: [id number] RECD: 06/20/24 11:31 STATUS: KEYONNA REQ #: [id number] ARNIE: 06/19/24 00:[address]: Shane Kiran DEPT: IMMUNOHISTOCHEMISTRY RECD BY: Rob Nava ENTERED: 06/20/24 11:32 SP TYPE: IMMUNO OTHR DR: Dr. Angel Mcginnis MD Tissues: Right breast, NOS Procedures: CALPONIN-1 (add) CK5-6 (add) CK8 (add) E-CAD (add) HER2 KISHA (add) KI-67 (add) P53 (add) AK (add) P40 (add) ER (initial) PHYSICIAN & [address] [address] SPECIMEN INFORMATION: Tissue Source: Right breast tissue Clinical Info: Right upper outer quadrant breast microcalcifications Specimen Number: [id number] CPT code: 65064,72328j9,17503q5 METHODOLOGY: Deparaffinized sections of prefer/formalin-fixed tissue or PAP/DQ stained slides are incubated with monoclonal/polyclonal antibodies/oligonucleotide probes. Localization is made via biotin free immunoperoxidase method. Appropriate controls are performed and reacted as expected. Results on target cell population are indicated in the following table: RESULTS: ANTIBODY / CLONE RESULT E-Cad (ECH-6) REPEAT CK8 ([id number]) positive Calponin-1 (FJ028N) negative * CK5-6 (D5 & 1684) negative * P40 (BC28) negative * P53 (DO-7) negative (null pattern) Ki-67 (30-9) positive, low 21% MORPHOMETRIC ANALYSIS ER (clone 6F11) 29% , weak intensity AK (clone 16/1E2) 0% Her-2Neu (clone CB11) 3+ * Positive in the DCIS (myoepithelial cells) The prognostic test for HER2 is performed on formalin-fixed paraffin embedded tissue. A 3+ (positive) staining pattern is defined as intense, homogeneous, complete, circumferential membranous staining in >10% of contiguous tumor cells. A similar weak (2+) staining pattern is interpreted as equivocal. AMAIRANI follow-up testing is recommended for all equivocal cases. Positivity/negativity for ER/AK is reported if > or < 1% of the tumor cells are immuno- reactive, respectively. The ASCO/CAP criteria is used for scoring. Reference: Journal of Clinical Oncology, 2013; 31:5181-7685 & 2010; 16:1996-1518. Ischemic time: Less than one hour. Duration of fixation: __ Hrs; Sample Adequate: Yes. These assays have not been validated on decalcified tissues. Results should be interpreted with caution given the likelihood of false negativity on decalcified specimens or fixation greater than 72 hours. Alternative testing methods (FISH/dualISH for Her2; gene expression for ER) are recommended, if applicable. Please notify the laboratory if additional testing is required. These tests were developed and their performance characteristics determined by [facility]. They may not have been cleared or approved by the U.S. Food and Drug Administration. The FDA has determined that such clearance or approval is not necessary. The above immunohistochemical/dualISH markers are ordered and reviewed by the Pathologist. INTERPRETATION: Right breast, stereotactic core biopsy: Invasive ductal carcinoma, provisional nuclear grade 2. Positive for estrogen receptors (favorable prognostic indicator). Negative for progesterone receptors (favorable prognostic indicator). Positive for overexpression of DFJ6jqe. SJ.mr 06/21/2024
--- NOTE | 2024-06-19 12:00 | PCM.OPRPT ---
Report of Operation Date of Procedure: 06/19/24 Pre-Operative Diagnosis: Abnormal mammogram of the right breast Post-Operative Diagnosis: Same Surgery/Procedure Performed:: Stereotactic guided right breast core needle biopsy Type of Anesthesia: Local Estimated Blood Loss (mL): 5 Description of Procedure: Patient was brought to the stereotactic room and placed on the stereotactic table. The microcalcifications were targeted with the computer and stereotactic views were obtained. The skin was then prepped and draped and injected with local anesthetic. Small mandy was made with a scalpel and then the needle was placed into the breast and fired. Several biopsies were obtained. X-rays of the specimen revealed that the microcalcifications were adequately sampled. Next a clip was placed into the breast. The needle was then removed and another x-ray revealed that the clip was in adequate position. Next a Steri-Strip and bandage were placed over the incision and a mammogram was obtained. Patient tolerated the procedure well.
== END | disposition home or self-care (01) ==
PROVIDERS: PCP Family Medicine; Referring Provider Surgery; Visit Provider Surgery
DX: R92.0 Mammographic microcalcification found on diagnostic imaging of breast (principal)
CPT/HCPCS: 19082; 19081; 88305; 88341; 88342; A4648

== ENCOUNTER 2024-07-11 07:27 | Day surgery (SDC) | payer MEDICARE, SELFPAY ==
[2024-07-11] VITALS (8 sets, daily range): BP systolic 130–149; BP diastolic 67–91; PULSE 70–81; RESP 16; TEMP 36.2–36.9; O2SAT 94–98; BMI 27.9
--- NOTE | 2024-07-11 | IMM_PTH ---
PATIENT: REBA BECKFORD LOC: [facility] U#:[id number] AGE/SX: 73/F ROOM: RE07/11/[address]: Dr. Shane Kiran MD : 1950 BED: DIS: 07/11/2024 SPEC #: [id number] RECD: 07/16/24 12:39 STATUS: KEYONNA REQ #: [id number] ARINE: 07/11/24 00:[address]: Shane Kiran DEPT: IMMUNOHISTOCHEMISTRY RECD BY: Rob Nava ENTERED: 07/16/24 12:39 SP TYPE: IMMUNO OTHR DR: Dr. Angel Mcginnis MD Tissues: A - Lymph node, NOS B - Lymph node, NOS C - Right breast, NOS Procedures: Calponin-1(initial) CALPONIN-1 (add) CK8 (add) E-CAD (add) Pankeratin (initial) Pankeratin (add) P40 (add) CK7 (initial) PHYSICIAN & [place] [id number] SPECIMEN INFORMATION: Tissue Source: A- [place] lymph node, B- Additional sentinel lymph node, C- Right partial mastectomy Clinical Info: Breast cancer, right Specimen Number: [id number] A 1, B1, B2, C5, C6 CPT code: 22159x2,66921d33 METHODOLOGY: Deparaffinized sections of prefer/formalin-fixed tissue or PAP/DQ stained slides are incubated with monoclonal/polyclonal antibodies/oligonucleotide probes. Localization is made via biotin free immunoperoxidase method. Appropriate controls are performed and reacted as expected. Results on target cell population are indicated in the following table: RESULTS: ANTIBODY / CLONE RESULT Block A 1 AE1-3 (AE1/AE3/PCK26) negative CK7 (OV-TL12/30) negative Block B1 AE1-3 (AE1/AE3/PCK26) negative CK7 (OV-TL12/30) negative Block B2 AE1-3 (AE1/AE3/PCK26) negative CK7 (OV-TL12/30) negative Block C5 Calponin-1 (IZ139M) negative P40 (BC28) negative CK8 (08cqyaN72) positive E-Cad (ECH-6) positive Block C6 Calponin-1 (JT873A) positive P40 (BC28) positive CK8 (94iqpoC81) positive E-Cad (ECH-6) positive These tests were developed and their performance characteristics determined by [facility]. They may not have been cleared or approved by the U.S. Food and Drug Administration. The FDA has determined that such clearance or approval is not necessary. The above immunohistochemical/dualISH markers are ordered and reviewed by the Pathologist. INTERPRETATION: A. [place] lymph node, biopsy: One lymph node, negative for metastatic carcinoma. B. Additional sentinel lymph node, biopsy: Two out of two lymph nodes, negative for metastatic carcinoma. C. Right breast, partial mastectomy: Invasive ductal carcinoma (block 5). Ductal carcinoma in situ (block 6). Case has been reviewed in consultation with Dr. Castañeda who concurs with the above diagnosis. IDC:HARRIET IQBAL/ 07/17/2024
[2024-07-11] MEDS: Lactated Ringers 1,000 ML 15 ML IV ×2 (07:45→13:32)
--- NOTE | 2024-07-11 07:57 | NM_ITS ---
PROCEDURE: NUCLEAR MEDICINE Injection [place] Node - RIGHT breast(s). REASON FOR EXAM: Female, 73 years old. Right breast cancer. TECHNIQUE: [place] node localization using radionuclide methods of the RIGHT breast(s) was performed following subcutaneous administration of 1.1 mCi of of sulfur colloid Tc-99m. COMPARISON STUDIES : NM - None. CR - Not available for review at this time. CT - Not available for review at this time. MR - Not available for review at this time. US - Not available for review at this time. FINDINGS: 1.1 mCi of technetium labeled sulfur colloid was injected subcutaneously in the periareolar region for sentinel node imaging. NM/Lymph Node Injection Only IMPRESSION: 1.1 mCi of technetium labeled sulfur colloid was injected subcutaneously in the periareolar region of the right breast for sentinel node imaging. Electronically Signed: Wilian So MD at 9:07 EDT ,
--- NOTE | 2024-07-11 08:03 | PRE.ANES_ITS ---
ASA Classification* ASA Classification ASA Classification: 2 Assessment & Plan Anesthesia* Anesthesia Assessment Anesthesia Assessment: Discussed sedation and/or anesthesia options, risks, benefits, and alternatives with patient/parents/legal guardian/POA. Questions invited. The patient/parents/legal guardian/POA seems to understand and agrees to proceed with anesthesia plan. Reviewed the physical assessment, medical history, allergy history and patient home medications list prior to surgery/procedure/anesthetic and documented any changes. Performed airway and anesthesia risk assessments. Anesthesia Type Anesthesia Type: General (see written pre anesthesia record for full assessment) Anesthesia Focused Assessment* Airway Assessment Mouth opens: >3 cm Mallampati Score: II Focused Labs Anesthesia Preop lab: CBC WBC 4.8 K/mm3 (4.4-11.0) 12/19/23 12:34 RBC 4.69 M/mm3 (4.2-5.4) 12/19/23 12:34 Hgb 14.1 g/dL (12.0-15.0) 12/19/23 12:34 Hct 41.6 % (37-47) 12/19/23 12:34 Plt Count 195 K/mm3 (150-450) 12/19/23 12:34 CHEMISTRY Potassium 4.0 mmol/L (3.5-5.1) 12/19/23 12:34 Sodium 142 mmol/L (136-145) 12/19/23 12:34 BUN 17 mg/dL (7-18) 12/19/23 12:34 Creatinine 0.59 mg/dL (0.55-1.02) 12/19/23 12:34 Glucose 90 mg/dL (74-106) 12/19/23 12:34 COAG PT 12.6 SECONDS (11.7-14.9) 08/17/21 08:26 Pre-Assessment Diagnosis/Proposed Procedure Planned Operative Procedure(s): RIGHT PARTIAL MASTECTOMY STERO WIRE LOCALIZATION BLUE DYE RADIOTRACER SENTIAL LYMPH NODE BIOPSY POSS AXILLARY DISSECTION Anesthesia History 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 When Was Last Pacemaker Check QUESTION #4 FULL TEXT: You/Your Family Experience fever (hyperthermia) with Anesthesia Last Oral Intake Last Oral intake: Last Oral Intake NPO since Meds taken in AM with sips of water? Meds patient instructed to take am of surgery PONV PONV - thread grinder tool: PONV - thread grinder tool Female Yes 07/10/24 10:55 HX of Motion Sickness No 07/10/24 10:55 HX of N/V After Surgery No 07/10/24 10:55 Non-Smoker Yes 07/10/24 10:55 Duration of Surgery greater Yes 07/10/24 10:55 than 60 minutes Number of Risk Factors 3 07/10/24 10:55 PONV Score Moderate Risk 07/10/24 10:55 Height & Weight Height & Weight: Anesthesia: Height & Weight Height 5 ft 8 in 07/03/24 14:21 Respiratory Assessment Respiratory Assessment - thread grinder tool: Respiratory Tract Infection Hx - thread grinder tool Hx Respiratory Tract Infection No 07/10/24 10:55 STOP Sleep Apnea STOP Sleep Apnea - thread grinder tool: STOP Sleep Apnea - thread grinder tool Hx Hypertension No 07/10/24 10:55 Hx Sleep Apnea No 07/10/24 10:55 CPAP No 08/17/21 08:52 BIPAP No 08/17/21 08:52 Do you snore loudly (louder No 07/10/24 10:55 than talking or can be heard Do you often feel tired/ No 07/10/24 10:55 fatigued/ sleepy during daytime? Has anyone observed you stop No 07/10/24 10:55 breathing during sleep? STOP Results Negative 07/10/24 10:55 QUESTION #5 FULL TEXT : Do you snore loudly (louder than talking or can be heard through closed doors)? 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 Specify any problems Hx of Preganancy in last 3 No 07/10/24 10:55 Months Nurse Filling Out Transfusion DSCHRIBER 07/10/24 10:55 & Questions: Date: 07/10/24 07/10/24 10:55 Time: 10:56 07/10/24 10:55 Patient unable to answer at this time (ie. confused, unrespo /Reproduction History /Reproductive History - thread grinder tool: /Reproductive Hx- thread grinder tool Hx Now No 07/10/24 10:55 Gestational Age (in weeks): EDC: Hx Hx Para Hx Section SAB No 07/10/24 10:55 Active Medications Active Medications: Current Medications Generic Name Dose Route Start Last Admin Trade Name Freq PRN Reason Stop Dose Admin Cefazolin Sodium 2 gm/ Sodium 110 mls @ 150 mls/hr 07/11/24 10:30 Chloride IV 07/11/24 11:13 PREOP ONE Lactated Ringer's 1,000 mls @ 15 mls/hr 07/11/24 07:45 IV .Q48H LAURO PFSH Medical History Back pain Injury of back History of stress test History of irregular heartbeat COVID ER+ (estrogen receptor positive status) Wears glasses Cancer Easy bruising Lightheadedness Heartburn Non-smoker History of colonic polyps Breast cancer, left breast (~05/2021) Multinodular non-toxic goiter Home Medications ?Medication ?Instructions ?Recorded ?Last Taken ?Type calcium carbonate 600 mg-vitamin 1 cap PO BID 11/08/21 Unknown History D3 12.5 mcg (500 unit) capsule (Calcium 600 with Vitamin D3) anastrozole 1 mg tablet 1 mg PO QHS 07/10/24 Unknown History Allergy/AdvReac Type Severity Reaction Status Date / Time naproxen (From Naprosyn) AdvReac Severe Hives Verified 07/10/24 10:53 Family History Brother Colon cancer Hypertension Cancer Leukemia Mother Breast cancer Sister Breast cancer Lymphoma Hypertension Aunt Breast cancer Surgical History History of lung surgery History of lumpectomy of left breast (~06/2021) Hx of tubal ligation History of colonoscopy (~03/2017) History of left breast biopsy (~05/2021) History of right breast biopsy (~1980) Social History household members: spouse Smoking Status: Never smoker second hand exposure: No alcohol intake: never substance use type: does not use caffeine: No carly/islam: Anabaptism seatbelt use: always do you feel safe at home: Yes Review of Systems (Anesthesia) ROS Narrative System reviewed and no additional complaints, except as documented.
--- NOTE | 2024-07-11 08:10 | EKG12_ITS ---
Test Reason : PRE OP Blood Pressure : / mmHG Vent. Rate : 075 BPM Atrial Rate : 075 BPM P-R Int : 146 ms QRS Dur : 072 ms QT Int : 384 ms P-R-T Axes : 072 054 052 degrees QTc Int : 428 ms Normal sinus rhythm Possible Left atrial enlargement Low voltage QRS Nonspecific ST abnormality Abnormal ECG BASELINE ARTIFACT Confirmed by Angel Salazar ([id number]), newspaper managing editor CAROLYN CROUCH ([id number]) on 07/15/2024 10:55:30 AM Referred By: Shane Kiran Confirmed By:Angel Salazar
[2024-07-11 08:21] LABS: Hematocrit 42.9 % (37-47); Hemoglobin 14.8 g/dL (12.0-15.0); Mean Corp Hgb Conc 34.5 g/dL (32-36); Mean Platelet Vol. 9.2 fl (6.2-12.0); Platelet Count 219 K/mm3 (150-450); RBC Distribution Width CV 12.2 % (11.6-14.6); RBC Distribution Width SD 38.7 fl (35.1-43.9); Red Blood Count 4.93 M/mm3 (4.2-5.4); White Blood Count 4.7 K/mm3 (4.4-11.0)
[2024-07-11 08:36] LABS: International Normalized Ratio 1.1; Partial Thromboplast Time 27.7 Seconds (24.1-36.2)
[2024-07-11 08:48] LABS: AST(SGOT) 23 U/L (15-37); Alanine Aminotransfer ALT/SGPT 25 U/L (13-56); Albumin, Serum 3.5 g/dL (3.2-5.0); Alkaline Phosphatase 103 U/L (45-117); Anion Gap 5 (5-15); BUN 12 mg/dL (7-18); Bilirubin, Direct 0.22 mg/dL (0.00-0.30); Calcium,Total 9.5 mg/dL (8.5-10.1); Chloride 107 mmol/L (98-107); Creatinine, Serum 0.71 mg/dL (0.55-1.02); EST Glomerular Filtration Rate 87 mL/min (>60); Est Glom Filt Rate - Afr Amer 105 mL/min (>60); Estimated Creatinine Clearance 73.01 ml/min; Globulin 3.9 g/dL (2.2-4.2); Glucose 101 mg/dL (74-106); Potassium 3.5 mmol/L (3.5-5.1); Protein, Total 7.4 g/dL (6.4-8.2); Sodium Level 140 mmol/L (136-145)
--- NOTE | 2024-07-11 09:30 | BI_ITS ---
SURGICAL BREAST SPECIMEN RADIOGRAPH CLINICAL: Document presence of tissue clip marker in biopsy specimen. FINDINGS: Specimen shows presence of tissue clip marker. Electronically Signed: Wilian So MD at 12:27 EDT , BI/Breast Biopsy Specimen IMPRESSION: undefined
--- NOTE | 2024-07-11 10:24 | HP.PCM_ITS ---
History and Physical Date of Admission: 07/11/24 Intake Vital Signs 06/13/2409:23 07/03/2414:21 Height 5 ft 8 in 5 ft 8 in Weight: 185 lb 6 oz 185 lb BMI 28.1 28.1 BP 160/84 H Blood Pressure Location Rt brachial Position Sitting Respiration 18 16 Pulse 63 Pulse Source Monitor Temp 97.2 F L Temp Source Temporal Pulse Oximetry (%) 98 Oxygen Delivery Method room air Intake Visit Reasons: DISCUSS SURGERY Chief Complaint: BIRADS 4 MAMMO ONLY Hospital Television Rental Clerk Required: No Is patient in pain?: No Allergies naproxen (From Naprosyn) Adverse Reaction (Severe, Verified 07/03/24 14:21) Hives Medications ?Medication ?Instructions ?Recorded ?Confirmed ?Type calcium carbonate 600 mg-vitamin 1 cap PO BID 11/08/21 07/03/24 History D3 12.5 mcg (500 unit) capsule (Calcium 600 with Vitamin D3) anastrozole 1 mg tablet 1 mg PO DAILY #90 tabs 04/29/24 07/03/24 Rx Have you fallen in the past year?: No PFSH Medical History COVID ER+ (estrogen receptor positive status) Wears glasses Cancer Easy bruising Lightheadedness Heartburn Non-smoker History of colonic polyps Breast cancer, left breast (~05/2021) Multinodular non-toxic goiter Surgical History History of lumpectomy of left breast (~06/2021) Hx of tubal ligation History of colonoscopy (~03/2017) History of left breast biopsy (~05/2021) History of right breast biopsy (~1980) Family History Brother Colon cancer Hypertension Cancer LeukemiaMother Breast cancerSister Breast cancer Lymphoma HypertensionAunt Breast cancer Social History household members: spouse Smoking Status: Never smoker second hand exposure: No alcohol intake: never substance use type: does not use caffeine: No carly/gnosticist: Jainism seatbelt use: always do you feel safe at home: Yes HPI HPI HPI: Patient is a 73-year-old female here to discuss her right breast cancer. She had stereotactic biopsy which revealed invasive ductal carcinoma of the right breast. ROS General General: Yes breast cancer; No weight change, appetite, fatigue, colon cancer or weakness HEENT HEENT: No difficulty swallowing, eye injury, eye surgery, swollen glands or hoarseness Endo Endocrine: No thyroid disease, diabetes mellitus, thyroid cancer, Hair loss, heat intolerance or cold intolerance Skin Skin: Yes changing moles Breast Breast: Yes abnormal mammogram; No left breast lump, right breast lump, nipple discharge, breast pain, abnormal US or breast enlargement Musc Musculoskeletal: No back problems, arthritis, rheumatoid arthritis, gout or joint pain Cardio Cardiovascular: No murmur, pacemaker, heart disease, atrial fibrillation, high blood pressure, heart attack, heart stent, palpitations, shortness of breat with exertion or chest pain Psych Psychiatric: No depression, anxiety or hearing voices Resp Respiratory: No shortness of breath, No sleep apnea, No cough, No COPD, No asthma, No emphysema and No wheezing [place]as Hematologic: No blood thinners, No blood disorders, No bleeding, No anemia and No blood clots Neuro Neurologic: No numbness, No tingling and No weakness Exam Const General: cooperative Orientation: alert and oriented x3 HENMT Head: normal to inspection Neck Neck: normal visual inspection and full ROM Chest Chest palpation & inspection: normal inspection of the chest Resp Effort & Inspection: normal respiratory effort Auscultation: clear to auscultation bilaterally Cardio Rate: regular rate Rhythm: regular rhythm GI Inspection: non-distended Palpation: soft and nontender Skin General: no rashes or lesions noted Neuro General: patient alert and patient oriented x3 Extrem General: full ROM Psych Appearance: grossly normal Mental Status: mental status grossly normal Assessment and Plan Assessment and Plan (1) Breast cancer, right: Status: Acute Qualifiers: Breast location: upper outer quadrant of breast Estrogen receptor status: positive Patient sex: female Qualified Code(s): C50.411 - Malignant neoplasm of upper-outer quadrant of right female breast; Z17.0 - Estrogen receptor positive status [ER+] Plan: Patient has a right breast cancer which is invasive ductal carcinoma. I discussed partial mastectomy with sentinel lymph node biopsy with her. I also discussed stereotactic wire localization. I discussed the risks of the procedure such as bleeding, infection, injury other organs, nerve pain or nerve injury. Patient understands all the risks and is willing to proceed. I also briefly discussed postoperative treatment such as radiation and possible chemotherapy. The patient is currently on anastrozole due to her left breast cancer. Shane Kiran MD Pager: [facility] [address] [place] [address] [address] [place] [phone] Office: I have examined the patient and the H&P has been reviewed. There are no clinical changes since date of exam.
[2024-07-11] MEDS: Cefazolin 2 GM in 0.9% Normal Saline (100mL Bag) 100 ML IV (11:08)
[2024-07-11] MEDS: 0.9% Normal Saline (Pres. free 10 ML Vial (11:15)
[2024-07-11] MEDS: Isosulfan Blue 1% 5 ML Vial (11:15)
--- NOTE | 2024-07-11 11:15 | LYMN_PTH ---
PATIENT: REBA BECKFORD LOC: [facility] [place] U#:[id number] AGE/SX: 73/F ROOM: RE07/11/[address]: Dr. Shane Kiran MD : 1950 BED: DIS: 07/11/2024 SPEC #: [id number] RECD: 07/11/24 12:16 STATUS: KEYONNA REQ #: [id number] ARNIE: 07/11/24 11:[address]: Shane Kiran DEPT: SURGICAL PATHOLOGY RECD BY: Rob Nava ENTERED: 07/11/24 12:17 SP TYPE: LYMPH NODE OTHR DR: Dr. Angel Mcginnis MD Tissues: A - Lymph node, NOS B - Lymph node, NOS C - Right breast, NOS D - Right breast, NOS E - Right breast, NOS Procedures: Frozen Section (charge) Frozen Section Add'l ([facility]) Surgery Specimen Level IV Surgery Specimen Level V HEADER OPERATION: Right partial mastectomy with stereo wire localization, blue dye PRE-OP DIAGNOSIS: Breast cancer, right TISSUE SUBMITTED: A- Manter lymph node, B- Additional sentinel lymph node, C- Right partial mastectomy, D- New lateral margin- stitch ojeda new margin, E- New medial margin- stitch ojeda new margin FROZEN SECTION DIAGNOSIS A. Right sentinel lymph node, biopsy: One lymph node, negative for metastatic carcinoma. B. Additional right sentinel lymph node, biopsy: Two out of two lymph nodes, negative for metastatic carcinoma. . 07/11/2024 MICROSCOPIC DIAGNOSIS A. Manter lymph node, biopsy: One lymph node, negative for metastatic carcinoma. See comment. B. Additional right sentinel lymph node, biopsy: Two out of two lymph nodes, negative for metastatic carcinoma. See comment. C. 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 See cancer summary in the comment section. D. New lateral margin: Negative for carcinoma. Focal fibrocystic changes. See comment. E. New medial margin: Negative for carcinoma. . 07/16/2024 COMMENT A & B. Immunohistochemistry ([id number]) supports the above diagnosis. The lymph nodes are negative for metastatic carcinoma on multiple H & E levels and immunohistochemical stains for cytokeratins ([id number]). C. Immunohistochemistry ([id number]) supports the above diagnosis. D. Skeletal muscle is noted in the specimen and is free of tumor. BREAST CANCER SUMMARY Procedure - Partial mastectomy Specimen laterality - Right Invasive tumor: Tumor site - Upper outer quadrant Tumor size - 0.5 x 0.4cm (measured microscopically). 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 Size (extent) of DCIS -. DCIS comprises ~70% of total tumor volume. Estimated size of DCIS - 0.7 x 0.4 cm largest focus, measured microscopically Number of blocks with DCIS - 2 Number of blocks examined - 17 (specimen B, C & D) Architectural pattern - Comedo and solid Nuclear grade - grade 3 (high) Necrosis - present, central (expansive comedo necrosis) Lobular carcinoma in situ - Not identified Tumor extension: Skin - Not present Nipple - Not applicable Skeletal muscle - Present, not involved by tumor (specimen D) Margins: Margins are free of invasive carcinoma and ductal carcinoma in situ. Invasive carcinoma is 1.0 cm from the closest superior margin. (biopsy cavity present at the medial margin, however, no tumor is noted at the margin) new medial margin is also negative for carcinoma. Ductal carcinoma in situ is 0.5 cm away from the closest posterior margin. Regional lymph nodes: Number of lymph nodes examined - 3 Number of sentinel lymph nodes examined - 3 Number of lymph nodes with macrometastases, micrometastases or isolated tumor cells - 0 Treatment effect - no known presurgical therapy. Lymphvascular invasion - Not identified Dermal lymphvascular invasion - Not applicable Additional Pathologic Findings - Changes consistent previous biopsy site. Fibrocystic changes and lobular involution. Ancillary Studies: Previously performed on same tumor ([id number] / [id number]) ER: positive (29%, weak intensity) CT: negative (0) Gyz5ymw: positive (3+) Ki67: low, 21% Microcalcifications - Present in non-neoplastic tissue and invasive carcinoma Clinical History - please make reference to previous specimen [id number], right breast, stereotactic core biopsy with diagnosis of invasive ductal carcinoma and ductal carcinoma in situ. PATHOLOGIC STAGE: pT1a pN0(sn) pMx The above summary is in compliance with [employer] (CAP) Cancer Protocols Checklist and [place] Joint Committee on Cancer (AJCC), Staging Manual, 8th Ed. This case has been reviewed in consultation with Dr. Castañeda who concurs with the above diagnosis. IDC:AM MICROSCOPIC DESCRIPTION Slides are reviewed. GROSS DESCRIPTION A. Received fresh for frozen section diagnosis labeled with the patient's name is a specimen designated Manter lymph node. The specimen consists of a piece of cazares-pink nodule measuring 1.2 x 1.0 x 1.0cm. The specimen is bisected and submitted entirely for frozen section diagnosis in one cassette. Sections area submitted after additional fixation. FARIDA. 07/12/2024 B. Received fresh for frozen section diagnosis labeled with the patient's name is a specimen designated Additional sentinel lymph node. The specimen consists of a piece of adipose tissue measuring 2.0 x 1.5 x 0.5cm. Two nodules consisting with lymph nodes are identified measuring 0.7 and 1.5cm in greatest dimension. The entire specimen is submitted for frozen section diagnosis in two cassettes as follow: 1- smaller lymph node, 2- larger lymph node, bisected. Sections area submitted after additional fixation.[email or web address].mr 07/12/2024 C. Received fresh for frozen section diagnosis labeled with the patient's name is a specimen designated Right partial mastectomy. The specimen consists of a piece of fibroadipose tissue with needle localization measuring 6.5 x 5.5 x 3.3cm. The specimen is inked as follows: anterior - yellow, posterior - black, superior - blue, inferior - green, medial - red and lateral - orange. The specimen is oriented as follows: short suture- superior, long suture-lateral. Serial sections reveal a biopsy cavity measuring 1.5 x 1.0 x 1.0cm. This biopsy cavity is present at the medial margin of the specimen. This information is conveyed to the surgeon intraoperatively. Sections of the rest of this specimen reveal cazares-yellow adipose cut surfaces mixed with cazares-white fibrous areas. [employer] sections are submitted in twelve cassettes as follows: 1- perpendicular posterior and lateral margin, 2- perpendicular anterior and inferior margin, 3- biopsy cavity with closest medial margin, 4-8- rest of biopsy cavity with other closer margins, 9-12- business services sales representative sections away from the biopsy cavity. Sections area submitted after additional fixation. D. Received in fixative is one container labeled with the patient's name and designated New lateral margin. The specimen consists of a piece of adipose tissue measuring 4.0 x 3.0 x 1.5cm. This specimen is inked as follows: new margin- black, old margin- blue. Sections reveal yellow adipose cut surfaces with focal congested areas. No obvious mass lesion is identified. The entire specimen is submitted in five cassettes. Sections area submitted after additional fixation.FARIDA. 07/12/2024 E. Received in fixative is one container labeled with the patient's name and designated New medial margin. The specimen consists of a piece of adipose tissue measuring 2.0 x 1.0 x 1.0cm. New margin is inked black and old margin is inked blue. The specimen is markedly disrupted. No mass lesion is identified. The entire specimen is submitted two cassettes. Sections area submitted after additional fixation. 07/12/2024 TC:0 CPT:68044a8,47597f5,22527o4,42296p0,85926
[2024-07-11] MEDS: Bupivacaine 0.25% 30 ML Vial (12:15)
--- NOTE | 2024-07-11 12:24 | OP.PCM_ITS ---
Report of Operation Date of Procedure: 07/11/24 Pre-Operative Diagnosis: Right breast cancer upper outer quadrant Post-Operative Diagnosis: Same Surgery/Procedure Performed:: 1. Right partial mastectomy 2. Right sentinel lymph node biopsy 3. Stereotactic guided wire localization Type of Anesthesia: General/Regional Specimen's removed: 1. Right partial mastectomy 2. Right sentinel lymph node biopsy Estimated Blood Loss (mL): 10 Description of Procedure: Patient was brought today to the stereotactic room and placed in the stereotactic table and the right breast was compressed. The clip was localized and the stereotactic views were obtained. The skin was then prepped and injected with local anesthetic. The needle was placed into the breast and then stereotactic images were obtained. Next the needle was removed and the wire was left in place and then the patient was brought for mammogram. Patient was then brought to the operating room and general anesthesia was induced. The right breast and axilla were prepped and draped in usual sterile fashion. The 5 cc Lymphazurin were injected beneath the nipple of the right breast as well as 5 cc of saline as a chaser. Breast was massaged for 5 minutes. Next an incision was marked and injected with local anesthetic in the axilla. Incision was made and deepened to the axillary fascia. Dissection was carried out until 2 lymph nodes were identified that were blue and radioactive and these were both removed using clips and scissors. The axilla was irrigated and suctioned dry and hemostasis was obtained. It was packed with a wet gauze. Next incision was made over the upper outer quadrant of the right breast. The wire was brought into the incision. Dissection was carried down the wire until the mass was identified. It was circumferentially dissected free using electrocautery dissection. It was marked and then sent for x-ray and pathology. X-ray revealed that the entire wire and the clip were included. Pathology however revealed that the medial margin was touching the margin. We went back into the breast and took a new lateral and medial margin and these were sent for pathology. The cavity was irrigated and was suctioned and it was hemostatic. The incision was closed with interrupted 3-0 Vicryl sutures and a running 4-0 Monocryl suture. Dermabond was applied to both incisions. Patient was woken and taken to PACU in stable condition. Synoptic Portion: Element Response Options Operation performed with curative intent. Yes Tracer(s) used to identify sentinel nodes in the upfront surgery (non- neoadjuvant) setting (select all that apply). Radiotracer and dye Tracer(s) used to identify sentinel nodes in the neoadjuvant setting (select all that apply). N/A All nodes (colored or non-colored) present at the end of a dye-filled lymphatic channel were removed. Yes All significantly radioactive nodes were removed. Yes All palpably suspicious nodes were removed. Yes Biopsy-proven positive nodes marked with clips prior to chemotherapy were identified and removed. N/A Admit VTE Documentation VTE Mechan Device Prophylaxis: SCD's
--- NOTE | 2024-07-11 12:42 | EX.PCM.DISCH ---
Discharge Instructions Diet Discharge Diet: No restrictions Activity Discharge Activity: May Not Drive (for 2-3 days or while taking narcotic pain medications.) and May Shower May shower in (days): 1 Lifting Restrictions: 15 lbs for 1 week Additional Activity Instructions:: Ibuprofen and Tylenol alternating for pain, Oxycodone for breakthrough pain Dressing / Incision Call your doctor if your incision/area has: Continuous Slow Oozing, Sudden Increased Bleeding, Increased Redness and Foul Smelling Discharge Call your doctor if you observe: Fever of 101 or Higher Suture Line Care: Avoid Pulling/Pushing and Avoid Pinching/Bending Additional Dressing/Incision Instructions:: Wear tight fitting sports bra for support the first 2 weeks Follow Up Care Please Follow Up With: Shane Kiran MD When: Please call to schedule 2 week follow up appointment. [phone] Test Results: Test results from this visit will be discussed in further detail at your follow-up appointment, if applicable. Discharge Plan Admission Attending Provider: Shane Kiran Primary Care Provider: Angel Mcginnis Instructions Print Language: Cook Islander Discharge Orders/Prescriptions Prescriptions: New oxycodone 5 mg Tablet 5 - 10 mg PO Q4H PRN PRN (Reason: Pain Score 4-10) 5 Days Qty: 15 0RF No Action calcium carbonate-vitamin D3 [Calcium 600 with Vitamin D3] 600 mg-12.5 mcg (500 unit) capsule 1 cap PO BID anastrozole 1 mg tablet 1 mg PO QHS Referrals / Follow Up: Angel Mcginnis MD [Primary Care Provider] - Disposition Disposition (needs filled in before D/C Order can be placed): Home, Self Care
--- NOTE | 2024-07-11 13:03 | PCM.POST.ANE ---
Anesthesia: Postop Eval I Current Vital Signs Temperature: 97.2 F Pulse Rate: 81 Blood Pressure: 135/74 Respiratory Rate: 16 Pulse Ox: 95 Oxygen Delivery Method: Room Air Assessment Airway patent: Yes Spontaneous unlabored respirations: Yes Mental status: Awake and Calm nausea: No Vomiting: No Anesthesia Complication: No Fluid Hydration Crystalloid volume administer (ml): 1,000 Total IV fluid infused: 1,000 Progress Note Anesthesia document: Postop Eval 1 completed: Yes
--- NOTE | 2024-07-11 14:47 | POSTOPAN2_ITS ---
Anesthesia Postop Eval I Sum Postop Eval Completion status Anesthesia document: Postop Eval 1 completed: Yes Anesthesia Postop Eval I Summary Anesthesia Postop Eval I Summary: Anesthesia Postop Eval I: Assessment Summary Airway patent Yes 07/11/24 13:04 SOURCING CONSULTANT.[email or web address] Spontaneous unlabored Yes 07/11/24 13:04 SOURCING CONSULTANT.GDOTT respirations Mental status Awake,Calm 07/11/24 13:04 SOURCING CONSULTANT.GDOTT nausea No 07/11/24 13:04 SOURCING CONSULTANT.GDOTT Vomiting No 07/11/24 13:04 SOURCING CONSULTANT.GDOTT Anesthesia Postop Eval I: Fluid Summary Crystalloid volume administer 1,000 07/11/24 13:04 SOURCING CONSULTANT.GDOTT (ml) Colloids volume administered ( ml) Blood Product volume administered (ml) Total IV fluid infused 1,000 07/11/24 13:04 SOURCING CONSULTANT.GDOTT Anesthesia Postop Eval I: Summary Notes Anesthesia Complication No 07/11/24 13:04 SOURCING CONSULTANT.GDOTT Anesthesia Complication Comment: Post-operative progress note Anesthesia: Postop Eval II Evaluation Mental status: Awake and Calm Pain Level: 2 nausea: No Vomiting: No Complications Anesthesia Complication: No
--- NOTE | 2024-07-11 14:47 | PCM.POSTANE2 ---
Anesthesia Postop Eval I Sum Postop Eval Completion status Anesthesia document: Postop Eval 1 completed: Yes Anesthesia Postop Eval I Summary Anesthesia Postop Eval I Summary: Anesthesia Postop Eval I: Assessment Summary Airway patent Yes 07/11/24 13:04 PAPER CONSERVATOR.GDOTT Spontaneous unlabored Yes 07/11/24 13:04 PAPER CONSERVATOR.GDOTT respirations Mental status Awake,Calm 07/11/24 13:04 PAPER CONSERVATOR.GDOTT nausea No 07/11/24 13:04 PAPER CONSERVATOR.GDOTT Vomiting No 07/11/24 13:04 PAPER CONSERVATOR.GDOTT Anesthesia Postop Eval I: Fluid Summary Crystalloid volume administer 1,000 07/11/24 13:04 PAPER CONSERVATOR.GDOTT (ml) Colloids volume administered ( ml) Blood Product volume administered (ml) Total IV fluid infused 1,000 07/11/24 13:04 PAPER CONSERVATOR.GDOTT Anesthesia Postop Eval I: Summary Notes Anesthesia Complication No 07/11/24 13:04 PAPER CONSERVATOR.GDOTT Anesthesia Complication Comment: Post-operative progress note Anesthesia: Postop Eval II Evaluation Mental status: Awake and Calm Pain Level: 2 nausea: No Vomiting: No Complications Anesthesia Complication: No
== END 2024-07-11 14:18 | disposition home or self-care (01) ==
LOC: SDC 07:29 → AC 07:32
PROVIDERS: Anesthesiology; PCP Family Medicine; Referring Provider Surgery; Visit Provider Surgery
PROC: (CPT 19301; principal; 2024-07-11 10:15)
DX: C50.411 Malignant neoplasm of upper-outer quadrant of right female breast (principal); C77.3 Secondary and unspecified malignant neoplasm of axilla and upper limb lymph nodes; Z17.0 Estrogen receptor positive status [ER+]; Z80.3 Family history of malignant neoplasm of breast; Z86.16 Personal history of COVID-19
CPT/HCPCS: 19301; 38500; 00400; 19281; 38792; 76098; 80048; 80076; 85027; 85610; 85730; 88305; 88307; 88331; 88332; 88341; 88342; 93005; A4648; A9541; J7120; J2405; J3490; Q9968

== ENCOUNTER 2024-08-07 10:13 | Day surgery (SDC) | payer MEDICARE, SELFPAY ==
[2024-08-07] VITALS (8 sets, daily range): BP systolic 112–157; BP diastolic 70–75; PULSE 54–70; RESP 14–16; TEMP 36.3–37.2; O2SAT 94–100; BMI 27.4
--- NOTE | 2024-08-07 10:53 | PRE.ANES_ITS ---
ASA Classification* ASA Classification ASA Classification: 2 Assessment & Plan Anesthesia* Anesthesia Assessment Anesthesia Assessment: Discussed sedation and/or anesthesia options, risks, benefits, and alternatives with patient/parents/legal guardian/POA. Questions invited. The patient/parents/legal guardian/POA seems to understand and agrees to proceed with anesthesia plan. Reviewed the physical assessment, medical history, allergy history and patient home medications list prior to surgery/procedure/anesthetic and documented any changes. Performed airway and anesthesia risk assessments. Anesthesia Type Anesthesia Type: MAC History Source History Obtained from:: Patient and Chart Anesthesia Focused Assessment* Temperature: 99 F Pulse Rate: 70 Blood Pressure: 157/75 Respiratory Rate: 16 Pulse Ox: 99 Oxygen Delivery Method: Room Air Airway Assessment Mouth opens: >3 cm Mallampati Score: II Teeth Condition: Caps/Crowns (Right lower molar has a crown. It is tight.) Neck Range of motion (ROM): Full ROM Focused Labs Anesthesia Preop lab: CBC WBC 4.8 K/mm3 (4.4-11.0) 07/31/24 10:15 RBC 4.86 M/mm3 (4.2-5.4) 07/31/24 10:15 Hgb 14.3 g/dL (12.0-15.0) 07/31/24 10:15 Hct 42.7 % (37-47) 07/31/24 10:15 Plt Count 255 K/mm3 (150-450) 07/31/24 10:15 CHEMISTRY Potassium 3.4 mmol/L (3.5-5.1) L 07/31/24 10:15 Sodium 140 mmol/L (136-145) 07/31/24 10:15 BUN 12 mg/dL (7-18) 07/31/24 10:15 Creatinine 0.62 mg/dL (0.55-1.02) 07/31/24 10:15 Glucose 96 mg/dL (74-106) 07/31/24 10:15 COAG PT 14.0 SECONDS (11.7-14.9) 07/11/24 08:10 Pre-Assessment Diagnosis/Proposed Procedure Planned Operative Procedure(s): (R) Insertion, Vascular Port Right poss Left Anesthesia History Anesthesia History - seismic computer: Anesthesia History - seismic computer Hx Hospitalization No 08/05/24 12:33 Any Problems With Anesthesia No 08/05/24 12:33 Cholinesterase deficiency No 08/05/24 12:33 You/Your Family Experience No 08/05/24 12:33 fever (hyperthermia) with Relationship Recent Exposure to Contagious No 08/07/24 10:40 Disease Does patient have nerve No 08/05/24 12:33 stimulator Patient instructed to have device shut off --Does patient have Pacemaker No 08/07/24 10:40 or ICD? When Was Last Pacemaker Check QUESTION #4 FULL TEXT: You/Your Family Experience fever (hyperthermia) with Anesthesia Last Oral Intake Last Oral intake: Last Oral Intake NPO since 22:00 08/07/24 10:40 Meds taken in AM with sips of water? Meds patient instructed to take am of surgery PONV PONV - seismic computer: PONV - seismic computer Female Yes 08/05/24 12:33 HX of Motion Sickness Yes 08/05/24 12:33 HX of N/V After Surgery No 08/05/24 12:33 Non-Smoker Yes 08/05/24 12:33 Duration of Surgery greater Yes 08/05/24 12:33 than 60 minutes Number of Risk Factors 4 08/05/24 12:33 PONV Score Severe Risk 08/05/24 12:33 Height & Weight Height & Weight: Anesthesia: Height & Weight Height 5 ft 8 in 08/07/24 10:40 Weight: 82 kg 08/07/24 10:40 Body Mass Index (BMI) 27.4 08/07/24 10:40 Respiratory Assessment Respiratory Assessment - seismic computer: Respiratory Tract Infection Hx - seismic computer Hx Respiratory Tract Infection No 08/05/24 12:33 STOP Sleep Apnea STOP Sleep Apnea - seismic computer: STOP Sleep Apnea - seismic computer Hx Hypertension No 08/05/24 12:33 Hx Sleep Apnea No 08/05/24 12:33 CPAP No 08/05/24 12:33 BIPAP No 08/05/24 12:33 Do you snore loudly (louder No 08/05/24 12:33 than talking or can be heard Do you often feel tired/ No 08/05/24 12:33 fatigued/ sleepy during daytime? Has anyone observed you stop No 08/05/24 12:33 breathing during sleep? STOP Results Negative 08/05/24 12:33 QUESTION #5 FULL TEXT : Do you snore loudly (louder than talking or can be heard through closed doors)? Tobacco Use History Tobacco Use History - seismic computer: Tobacco Use History - seismic computer Tobacco Use Smoking Status Never smoker 08/05/24 12:33 Hx Tobacco Use No 08/05/24 12:33 Years Smoking Packs Smoked per Day Smoking Cessation Date was within the last 15 years Hx Smoking Cessation Date Hx Smoking Cessation Counseling Hematologic Medial History Hematologic Hx - seismic computer: Hematologic Medical Hx - pharmacy operations coordinator Hx of Blood Transfusion No 08/05/24 12:33 Hx of Transfusion in last 3 No 08/05/24 12:33 Months Date of Last Transfusion (if within last 3 months) Ever experience any problems No 08/05/24 12:33 with transfusion(s)? Specify any problems Hx of Preganancy in last 3 No 08/05/24 12:33 Months Nurse Filling Out Transfusion VCHRISTIN 08/05/24 12:33 & Questions: Date: 08/05/24 08/05/24 12:33 Time: 12:34 08/05/24 12:33 Patient unable to answer at this time (ie. confused, unrespo /Reproduction History /Reproductive History - seismic computer: /Reproductive Hx- seismic computer Hx Now No 08/05/24 12:33 Gestational Age (in weeks): EDC: Hx Hx Para Hx Section SAB No 08/05/24 12:33 Active Medications Active Medications: Current Medications Generic Name Dose Route Start Last Admin Trade Name Freq PRN Reason Stop Dose Admin Cefazolin Sodium 2 gm/ Sodium 110 mls @ 150 mls/hr 08/07/24 12:25 Chloride IV 08/07/24 13:08 PREOP [facility] Medical History Post-menopausal Back pain Injury of back History of stress test History of irregular heartbeat COVID ER+ (estrogen receptor positive status) Wears glasses Cancer Easy bruising Lightheadedness Heartburn Non-smoker History of colonic polyps Breast cancer, left breast (~05/2021) Multinodular non-toxic goiter Home Medications ?Medication ?Instructions ?Recorded ?Last Taken ?Type calcium 600 mg (as 1 cap PO BID 11/08/21 07/10/24 History carbonate)-vitamin D3 12.5 mcg (500 unit) capsule (Calcium with Vit D3) anastrozole 1 mg tablet 1 mg PO QHS 07/10/24 07/10/24 History Allergy/AdvReac Type Severity Reaction Status Date / Time naproxen (From Naprosyn) AdvReac Severe Hives Verified 08/07/24 10:39 Family History Brother Colon cancer Hypertension Cancer Leukemia Mother Breast cancer Sister Breast cancer Lymphoma Hypertension Aunt Breast cancer Surgical History (Updated 08/05/24 @ 12:32 by Sheila Brewer) Hx of partial mastectomy S/P lumpectomy, right breast History of lung surgery History of lumpectomy of left breast (~06/2021) Hx of tubal ligation History of colonoscopy (~03/2017) History of left breast biopsy (~05/2021) History of right breast biopsy (~1980) Social History household members: spouse Smoking Status: Never smoker second hand exposure: No alcohol intake: never substance use type: does not use caffeine: No carly/evangelical: Oriental Orthodox seatbelt use: always do you feel safe at home: Yes Review of Systems (Anesthesia) ROS Narrative System reviewed and no additional complaints, except as documented.
--- NOTE | 2024-08-07 12:15 | PCM.HP.STD ---
HPI - General HPI Narrative REBA BECKFORD, is a 73 F who presents for port placement. The patient has triple negative breast cancer and requires chemotherapy. [facility] Medical History Post-menopausal Back pain Injury of back History of stress test History of irregular heartbeat COVID ER+ (estrogen receptor positive status) Wears glasses Cancer Easy bruising Lightheadedness Heartburn Non-smoker History of colonic polyps Breast cancer, left breast (~05/2021) Multinodular non-toxic goiter Home Medications ?Medication ?Instructions ?Recorded ?Last Taken ?Type calcium 600 mg (as 1 cap PO BID 11/08/21 07/10/24 History carbonate)-vitamin D3 12.5 mcg (500 unit) capsule (Calcium with Vit D3) anastrozole 1 mg tablet 1 mg PO QHS 07/10/24 07/10/24 History Allergy/AdvReac Type Severity Reaction Status Date / Time naproxen (From Naprosyn) AdvReac Severe Hives Verified 08/07/24 10:39 Family History Brother Colon cancer Hypertension Cancer Leukemia Mother Breast cancer Sister Breast cancer Lymphoma Hypertension Aunt Breast cancer Surgical History (Updated 08/05/24 @ 12:32 by Sheila Brewer) Hx of partial mastectomy S/P lumpectomy, right breast History of lung surgery History of lumpectomy of left breast (~06/2021) Hx of tubal ligation History of colonoscopy (~03/2017) History of left breast biopsy (~05/2021) History of right breast biopsy (~1980) Social History household members: spouse Smoking Status: Never smoker second hand exposure: No alcohol intake: never substance use type: does not use caffeine: No carly/hoahaoism: Gnosticist seatbelt use: always do you feel safe at home: Yes Vital Signs Vital Signs Vital Signs: 08/07/24 10:40 08/07/24 10:40 08/07/24 11:00 Temperature 99 F 99 F Temperature Source Temporal Pulse Rate 70 70 Respiratory Rate 16 16 Respiratory Pattern Normal Blood Pressure 157/75 H 157/75 H Blood Pressure Mean 102 Blood Pressure Source Monitor Blood Pressure Position Semi-Fowlers Blood Pressure Location Left Arm Pulse Ox 99 99 Oxygen Delivery Method Room Air Room Air Weight Weight: 180 lb 12.465 oz Body Mass Index (BMI) 27.4 Physical Exam Const alert and oriented x3 HEENT normocephalic Eyes PERRL Resp normal respiratory effort and normal air movement Cardio regular rate and regular rhythm GI soft to palpation, non-tender and non-distended Extremity normal to inspection Assessment & Plan Assessment/Plan (1) Breast cancer, right: QUALIFIERS: Breast location: upper outer quadrant of breast Estrogen receptor status: positive Patient sex: female Qualified Code(s): C50.411 - Malignant neoplasm of upper-outer quadrant of right female breast; Z17.0 - Estrogen receptor positive status [ER+] (2) Encounter for adjustment and management of vascular access device: PLAN: Plan I discussed chest port placement with the patient in detail. I discussed the risks including but not limited to bleeding, infection, injury other organs or pneumothorax. Patient understands the risks and is willing to proceed. Shane Kiran MD Pager: [facility] [address] [place] [address], [address] [place] [address] Office:
[2024-08-07] MEDS: Cefazolin 2 GM in 0.9% Normal Saline (100mL Bag) 100 ML IV (12:42)
[2024-08-07] MEDS: Lidocaine 1% /Epi 1:100 (20ml) 20 ML Vial (12:54)
[2024-08-07] MEDS: Bupivacaine Mpf 0.5% 30 ML VIAL (12:54)
--- NOTE | 2024-08-07 13:24 | PCM.OPRPT ---
Report of Operation Date of Procedure: 08/07/24 Pre-Operative Diagnosis: Need for vascular access for chemotherapy Post-Operative Diagnosis: Same Surgery/Procedure Performed:: Ultrasound and fluoroscopy guided right chest port placement utilizing right IJ Type of Anesthesia: Local MAC Estimated Blood Loss (mL): 5 Description of Procedure: After obtaining informed consent patient was brought back to the operating room MAC anesthesia was induced and the right chest and neck were prepped in normal sterile fashion. Ultrasound was used to evaluate both IJs and the right IJ was selected. Next, using a needle, the right IJ was accessed and a guidewire was passed on into the superior vena cava under fluoroscopy guidance. A small incision was made over the puncture site and the dilator introducer was placed over the guidewire. Next this was capped and the pocket was made for the port. 1% lidocaine with epinephrine was injected in the proposed port site. An incision was made with scalpel. Electrocautery was used to make a pocket under the skin and subcutaneous tissue. Hemostasis was obtained. Next, the catheter was tunneled up to the neck incision site and placed through the introducer. The peel-away introducer was removed and the position of the catheter was confirmed on fluoroscopy. Next, the catheter was trimmed and attached to the port with the locking device. Interrupted 2-0 Vicryl sutures were used to anchor the port to the chest wall and then the port was placed inside the pocket. The pocket was then flushed with saline and the port irrigated with saline. There was good blood return and the port flushed easily. Next, heparin was injected into the port. The skin was closed with subcutaneous interrupted 3-0 Vicryl sutures. A single 3-0 Vicryl sutures placed under the skin at the neck incision site. Steri-Strips were placed as well as op sites. Patient tolerated procedure well, was taken to PACU in stable condition. Chest x-ray will be obtained. Grafts/Implants Used: 8 Bengali PowerPort Admit VTE Documentation VTE Mechan Device Prophylaxis: SCD's
--- NOTE | 2024-08-07 13:29 | DCINST_ITS ---
Discharge Instructions Procedure Port-A-Cath Diet Discharge Diet: Light diet - advance as tolerated (Pain medication may cause nausea. You should typically eat light foods as you take your pain medication.) Activity Discharge Activity: Return to Normal Activity and May Shower (with your bandage in place in 1-2 days after surgery. DO NOT SHOWER WHEN YOUR PORT IS ACCESSED.) Dressing / Incision Call your doctor if your incision/area has: Continuous Slow Oozing, Sudden Increased Bleeding, Increased Pain/ Swelling, Increased Redness and Foul Smelling Discharge Call your doctor if you observe: Fever of 101 or Higher Remove Dressing in: 2 days Cleanse incision/area with: Soap & Water Follow Up Care Please Follow Up With: Shane Kiran MD When: as needed [phone] Test Results: Test results from this visit will be discussed in further detail at your follow- up appointment, if applicable. Discharge Plan Admission Attending Provider: Shane Kiran Primary Care Provider: Angel Mcginnis Instructions Print Language: Turkish Discharge Orders/Prescriptions Prescriptions: No Action calcium carbonate-vitamin D3 [Calcium 600 with Vitamin D3] 600 mg-12.5 mcg (500 unit) capsule 1 cap PO BID anastrozole 1 mg tablet 1 mg PO QHS Referrals / Follow Up: Angel Mcginnis MD [Primary Care Provider] - Disposition Disposition (needs filled in before D/C Order can be placed): Home, Self Care
--- NOTE | 2024-08-07 13:30 | RAD_ITS ---
STUDY: X-RAY CHEST REASON FOR EXAM: Female, 73 years old. Line placement -- in pacu TECHNIQUE: Single AP portable view of the chest. COMPARISON: Comparison is made with prior chest radiograph dated August 17, 2021. FINDINGS: A right-sided portacatheter is in place with the tip at the junction of the superior vena cava and right atrium. EKG electrodes are seen. Surgical clips are seen in both axilla. The lungs are clear and expanded. There is no demonstrated pleural abnormality. Normal size heart. Normal mediastinum and zaida. Normal visualized pulmonary arteries. There is atherosclerotic tortuosity of the aortic arch and descending thoracic aorta. There are degenerative changes of the visualized thoracic spine. Normal visualized ribs, clavicles, and shoulders. There is no demonstrated abnormality of the visualized soft tissue structures of the upper abdomen. RAD/CXR for Line Placement IMPRESSION: The tip of the right-sided debbie catheter is at the junction of the superior vena cava and right atrium. Electronically Signed: Wilian So MD at 13:53 EDT ,
--- NOTE | 2024-08-07 13:35 | PCM.POST.ANE ---
Anesthesia: Postop Eval I Current Vital Signs Temperature: 98.5 F Pulse Rate: 60 Blood Pressure: 121/70 Respiratory Rate: 14 Pulse Ox: 100 Oxygen Delivery Method: Room Air Assessment Airway patent: Yes Spontaneous unlabored respirations: Yes Mental status: Awake and Calm nausea: No Vomiting: No Anesthesia Complication: No Fluid Hydration Crystalloid volume administer (ml): 100 Total IV fluid infused: 100 Progress Note Anesthesia document: Postop Eval 1 completed: Yes
--- NOTE | 2024-08-07 15:12 | PCM.POSTANE2 ---
Anesthesia Postop Eval I Sum Postop Eval Completion status Anesthesia document: Postop Eval 1 completed: Yes Anesthesia Postop Eval I Summary Anesthesia Postop Eval I Summary: Anesthesia Postop Eval I: Assessment Summary Airway patent Yes 08/07/24 13:36 [email or web address] Spontaneous unlabored Yes 08/07/24 13:36 [email or web address] respirations Mental status Awake,Calm 08/07/24 13:36 [email or web address] nausea No 08/07/24 13:36 [email or web address] Vomiting No 08/07/24 13:36 [email or web address] Anesthesia Postop Eval I: Fluid Summary Crystalloid volume administer 100 08/07/24 13:36 [email or web address] (ml) Colloids volume administered ( ml) Blood Product volume administered (ml) Total IV fluid infused 100 08/07/24 13:36 [email or web address] Anesthesia Postop Eval I: Summary Notes Anesthesia Complication No 08/07/24 13:36 [email or web address] Anesthesia Complication Comment: Post-operative progress note Anesthesia: Postop Eval II Evaluation Mental status: Awake and Calm Pain Level: 1 nausea: No Vomiting: No Complications Anesthesia Complication: No
== END 2024-08-07 14:11 | disposition home or self-care (01) ==
LOC: SDC 10:13 → AC 10:17
PROVIDERS: PCP Family Medicine; Referring Provider Surgery; Visit Provider Surgery
PROC: (CPT 36561; principal; 2024-08-07 12:10)
DX: Z45.2 Encounter for adjustment and management of vascular access device (principal); C50.411 Malignant neoplasm of upper-outer quadrant of right female breast; Z80.3 Family history of malignant neoplasm of breast; Z17.0 Estrogen receptor positive status [ER+]
CPT/HCPCS: 36561; 71045; 77001; A4216; C1788; J2405

== ENCOUNTER → 2024-08-09 | Outpatient (CLI) | payer MEDICARE, SELFPAY ==
--- NOTE | 2024-08-09 10:22 | ECHODONC_ITS ---
Reason For Study: CHEMOTHERAPY Procedure This was a 2D Doppler, Color Flow transthoracic echocardiogram. Myocardial strain analysis was performed in this exam to aid in the assessment of cardiac function. Exam performed in department. Left Ventricle Normal LV size. Left ventricular systolic function is normal. The estimated ejection fraction is 57 %. Stage 1 diastolic dysfunction. No regional wall motion abnormalities noted. Right Ventricle Normal RV size. Normal systolic function. Atria Normal left atrium. Normal right atrium. Mitral Valve Normal mitral valve. Tricuspid Valve Normal tricuspid valve. Mild tricuspid valve insufficiency. Pulmonary artery systolic pressure is 25 mmHg. Aortic Valve Trisinus/trileaflet aortic valve. Pulmonic Valve Normal pulmonic valve. Great Vessels Normal aortic root. The pulmonary artery is normal size. Inferior vena cava collapse with respiration. Pericardium/Pleural No pericardial effusion. MMode/2D Measurements & Calculations LVIDd: 4.3 cm IVSd: 1.0 cm LVOT diam: 2.0 cm LVIDs: 2.7 cm LVPWd: 0.90 cm LVOT area: 3.0 cm2 RVDd: 3.2 cm FS: 35.9 % asc Aorta Diam: 3.0 cm LAV(MOD-bp): 38.7 ml LVAd ap4: 17.9 cm2 LAV(MOD-bp) Indexed: 19.7 ml/m2 LVLd ap4: 6.5 cm LAV(MOD-sp2): 41.0 ml EDV(MOD-sp4): 41.8 ml LAV(MOD-sp4): 35.4 ml EDV(sp4-el): 41.6 ml LVAs ap4: 9.6 cm2 LVLs ap4: 5.1 cm ESV(MOD-sp4): 15.4 ml ESV(sp4-el): 15.3 ml EF(MOD-sp4): 63.3 % EF(sp4-el): 63.3 % LVAd ap2: 19.9 cm2 SV(MOD-sp4): 26.5 ml SV(MOD-sp2): 30.3 ml LVLd ap2: 6.8 cm EDV(MOD-sp2): 48.2 ml EDV(sp2-el): 49.6 ml LVAs ap2: 11.1 cm2 LVLs ap2: 5.9 cm ESV(MOD-sp2): 17.9 ml ESV(sp2-el): 17.7 ml EF(MOD-sp2): 62.8 % SV(sp4-el): 26.3 ml Ao sinus diam: 3.[address] Junction: 2.6 cm LA dimension(2D): 4.1 cm LA A4 area: 14.1 cm2 RA A4 area: 9.8 cm2 TAPSE: 1.7 cm Time Measurements MV dec time: 0.21 sec Doppler Measurements & Calculations MV E max jaylan: 39.5 cm/sec Lat Peak E' Jaylan: 6.9 cm/sec Med Peak E' Jaylan: 5.1 cm/sec MV A max jaylan: 61.8 cm/sec E/E' lat: 5.7 E/E' med: 7.7 MV E/A: 0.64 MV dec slope: 191.4 cm/sec2 Ao V2 max: 121.4 cm/sec LV V1 max: 79.9 cm/sec Ao max P.9 mmHg LV V1 max P.6 mmHg Ao V2 mean: 87.0 cm/sec LV V1 mean P.2 mmHg Ao mean P.3 mmHg LV V1 mean: 49.7 cm/sec Ao V2 VTI: 24.6 cm LV V1 VTI: 17.6 cm AV (velocity ratio): 0.72 JAVI(I,D): 2.1 cm2 JAVI(V,D): 2.0 cm2 SV(LVOT): 52.5 ml PA V2 max: 81.9 cm/sec TR max jaylan: 234.3 cm/sec PA max PG (full): 1.3 mmHg TR max P.0 mmHg ECHO/ONC Echo Complete Interpretation Summary Normal LV size. Left ventricular systolic function is normal. The estimated ejection fraction is 57 %. Stage 1 diastolic dysfunction. The global longitudinal strain is mildly abnormal. The global longitudinal stra in = -16.7% (abnormal). Ordering Physician: Arturo Olivas Referring Physician: Arturo Olivas Performed By: Kandi Madera RDCS
== END | disposition home or self-care (01) ==
LOC: CVS 10:21
PROVIDERS: PCP Family Medicine; Referring Provider Internal Medicine Hematology & Oncology; Visit Provider Internal Medicine Hematology & Oncology
DX: Z79.899 Other long term (current) drug therapy (principal)
CPT/HCPCS: 93306; 93356

== ENCOUNTER → 2024-11-07 | Outpatient (CLI) | payer MEDICARE, SELFPAY ==
--- NOTE | 2024-11-07 07:40 | ECHODONC_ITS ---
Reason For Study: CHEMOTHERAPY Procedure This was a 2D Doppler, Color Flow transthoracic echocardiogram. Myocardial strain analysis was performed in this exam to aid in the assessment of cardiac function. Exam performed in department. Left Ventricle Normal left ventricle. The global longitudinal strain = -17.8 % (normal). The left ventricular ejection fraction is 60 %. No regional wall motion abnormalities noted. Right Ventricle Normal RV size. Normal systolic function. Atria Normal left atrium. Normal right atrium. Mitral Valve Normal mitral valve. Tricuspid Valve Normal tricuspid valve. Aortic Valve Trisinus/trileaflet aortic valve. Pulmonic Valve Normal pulmonic valve. Great Vessels Normal aortic root. The pulmonary artery is normal size. Inferior vena cava collapse with respiration. Pericardium/Pleural No pericardial effusion. MMode/2D Measurements & Calculations LVIDd: 4.6 cm IVSd: 1.1 cm LVOT diam: 2.1 cm LVIDs: 2.9 cm LVPWd: 1.0 cm LVOT area: 3.5 cm2 RVDd: 3.2 cm FS: 37.9 % asc Aorta Diam: 3.1 cm LAV(MOD-bp): 35.2 ml LVAd ap4: 21.1 cm2 LAV(MOD-bp) Indexed: 17.7 ml/m2 LVLd ap4: 7.0 cm LAV(MOD-sp2): 37.2 ml EDV(MOD-sp4): 51.9 ml LAV(MOD-sp4): 33.3 ml EDV(sp4-el): 54.3 ml LVAs ap4: 11.5 cm2 LVLs ap4: 5.6 cm ESV(MOD-sp4): 20.8 ml ESV(sp4-el): 20.1 ml EF(MOD-sp4): 59.8 % EF(sp4-el): 62.9 % LVAd ap2: 20.4 cm2 SV(MOD-sp4): 31.0 ml SV(MOD-sp2): 32.6 ml LVLd ap2: 6.6 cm SI(MOD-sp4): 15.6 ml/m2 SI(MOD-sp2): 16.4 ml/m2 EDV(MOD-sp2): 53.5 ml EDV(sp2-el): 53.2 ml LVAs ap2: 11.7 cm2 LVLs ap2: 5.7 cm ESV(MOD-sp2): 20.9 ml ESV(sp2-el): 20.6 ml EF(MOD-sp2): 60.9 % SV(sp4-el): 34.1 ml Ao sinus diam: 3.[address] Junction: 2.8 cm LA dimension(2D): 4.2 cm LA A4 area: 13.5 cm2 RA A4 area: 9.9 cm2 TAPSE: 1.8 cm Time Measurements MV dec time: 0.20 sec Doppler Measurements & Calculations MV E max jaylan: 44.9 cm/sec Lat Peak E' Jaylan: 8.5 cm/sec Med Peak E' Jaylan: 5.8 cm/sec MV A max jaylan: 74.2 cm/sec E/E' lat: 5.3 E/E' med: 7.8 MV E/A: 0.60 MV dec slope: 229.4 cm/sec2 Ao V2 max: 117.3 cm/sec LV V1 max: 86.5 cm/sec Ao max P.5 mmHg LV V1 max P.0 mmHg Ao V2 mean: 83.0 cm/sec LV V1 mean P.4 mmHg Ao mean P.0 mmHg LV V1 mean: 54.9 cm/sec Ao V2 VTI: 23.2 cm LV V1 VTI: 19.0 cm AV (velocity ratio): 0.82 JAVI(I,D): 2.9 cm2 JAVI(V,D): 2.6 cm2 SV(LVOT): 67.2 ml PA V2 max: 88.9 cm/sec TR max jaylan: 259.8 cm/sec TR max P.0 mmHg ECHO/ONC Echo Complete Interpretation Summary Normal left ventricle. The left ventricular ejection fraction is 60 %. The global longitudinal strain = -17.8 % (normal). Structurally normal valves. Ordering Physician: Liz Arechiga Referring Physician: Liz Arechiga Performed By: Kandi Madera RDCS
== END | disposition home or self-care (01) ==
LOC: CVS 07:38
PROVIDERS: PCP Family Medicine; Referring Provider Nurse Practitioner Family; Visit Provider Nurse Practitioner Family
DX: R00.2 Palpitations (principal); C50.919 Malignant neoplasm of unspecified site of unspecified female breast; Z17.31 Human epidermal growth factor receptor 2 positive status; Z51.81 Encounter for therapeutic drug level monitoring; Z79.899 Other long term (current) drug therapy
CPT/HCPCS: 93306; 93356

== ENCOUNTER → 2024-12-30 | Outpatient (CLI) | payer MEDICARE, SELFPAY ==
--- NOTE | 2024-12-30 09:30 | ECHOLONC_ITS ---
Reason For Study Reason For Study: ANTINEPOPLASTIC CARCINOMA Procedure This was a limited 2D transthoracic echocardiogram. Myocardial strain analysis was performed in this exam to aid in the assessment of cardiac function. Exam performed in department. Left Ventricle Normal LV size. The global longitudinal strain = -19.3 % (normal). The estimated ejection fraction is 60 %. No regional wall motion abnormalities noted. Right Ventricle Normal RV size. Normal systolic function. Atria The left and right atria are normal. Mitral Valve The mitral valve is structurally normal. No prolapse or stenosis seen. Tricuspid Valve Normal tricuspid valve. Aortic Valve Trisinus/trileaflet aortic valve. Pulmonic Valve Normal pulmonic valve. Great Vessels Normal sized aortic root. Pericardium/Pleural No pericardial effusion. MMode/2D Measurements & Calculations LVIDd: 4.9 cm IVSd: 0.91 cm LAV(MOD- bp): 42.4 ml LVIDs: 2.5 cm LVPWd: 0.96 cm LAV(MOD- bp) Indexed: 21.5 ml/m2 RVDd: 3.3 cm FS: 49.3 % LAV(MOD- sp2): 33.1 ml LAV(MOD- sp4): 39.4 ml SV(MOD- sp4): 33.6 ml LVAd ap4: 22.9 cm2 LVAd ap2: 21.9 cm2 LVLd ap4: 7.5 cm LVLd ap2: 7.0 cm SI(MOD- sp4): 17.1 ml/m2 EDV(MOD-sp4): 60.6 ml EDV(MOD-sp2): 58.3 ml EDV(sp4-el): 59.6 ml EDV(sp2-el): 57.8 ml LVAs ap4: 13.6 cm2 LVAs ap2: 12.2 cm2 LVLs ap4: 6.2 cm LVLs ap2: 6.0 cm ESV(MOD-sp4): 27.0 ml ESV(MOD-sp2): 22.1 ml ESV(sp4-el): 25.1 ml ESV(sp2-el): 21.0 ml EF(MOD-sp4): 55.5 % EF(MOD-sp2): 62.0 % EF(sp4-el): 57.9 % SV(MOD-sp2): 36.1 ml SV(sp4-el): 34.5 ml LA A4 area: 15.9 cm2 SI(MOD-sp2): 18.4 ml/m2 LA dimension(2D): 3.8 cm RA A4 area: 10.5 cm2 ECHO/ONC Echo, Limited Study Interpretation Summary The estimated ejection fraction is 60 %. The global longitudinal strain = -19.3 % (normal). Structually normal valves. Ordering Physician: Arturo Olivas Referring Physician: Arturo Olivas Performed By: Celina Navarrete RCS
== END | disposition home or self-care (01) ==
PROVIDERS: PCP Family Medicine; Referring Provider Internal Medicine Hematology & Oncology; Visit Provider Internal Medicine Hematology & Oncology
DX: Z79.899 Other long term (current) drug therapy (principal)
CPT/HCPCS: 93308; 93356

== ENCOUNTER → 2025-04-10 | Outpatient (CLI) | payer MEDICARE, SELFPAY ==
--- NOTE | 2025-04-10 09:34 | ECHOLCONC_ITS ---
Reason For Study Reason For Study: ANTINEOPLASTIC CHEMO Procedure This was a limited 2D transthoracic echocardiogram. Myocardial strain analysis was performed in this exam to aid in the assessment of cardiac function. Exam performed in department. Left Ventricle Normal LV size. The left ventricular ejection fraction is 55 %. No regional wall motion abnormalities noted. Right Ventricle Normal RV size. Normal systolic function. Atria Normal left atrium. Normal right atrium. Mitral Valve Normal mitral valve. Tricuspid Valve Normal tricuspid valve. Great Vessels Normal aortic root. Pericardium/Pleural No pericardial effusion. MMode/2D Measurements & Calculations LVIDd: 4.7 cm IVSd: 0.93 cm LVOT diam: 2.0 cm LVIDs: 3.2 cm LVPWd: 1.2 cm LVOT area: 3.3 cm2 RVDd: 3.4 cm FS: 31.7 % Ao root diam: 3.2 cm LAV(MOD-bp): 33.2 ml LVAd ap4: 21.7 cm2 LAV(MOD-bp) Indexed: 16.9 ml/m2 LVLd ap4: 7.4 cm LAV(MOD-sp2): 33.7 ml EDV(MOD-sp4): 54.5 ml LAV(MOD-sp4): 27.2 ml EDV(sp4-el): 53.8 ml LVAs ap4: 13.1 cm2 LVLs ap4: 6.1 cm ESV(MOD-sp4): 24.8 ml ESV(sp4-el): 23.9 ml EF(MOD-sp4): 54.5 % EF(sp4-el): 55.6 % SV(MOD-sp4): 29.7 ml SV(sp4-el): 29.9 ml LA A4 area: 13.0 cm2 SI(MOD-sp4): 15.1 ml/m2 LA dimension(2D): 3.9 cm RA A4 area: 12.6 cm2 ECHO/ONC Echo Limited w/Contrast Interpretation Summary Normal LV size. The left ventricular ejection fraction is 55 %. The global longitudinal strain is normal. The global longitudinal strain = -18. 6 % (normal). Ordering Physician: Arturo Olivas Referring Physician: Arturo Olivas Performed By: Celina Navarrete RCS
== END | disposition home or self-care (01) ==
LOC: CVS 09:31
PROVIDERS: PCP Family Medicine; Referring Provider Internal Medicine Hematology & Oncology; Visit Provider Internal Medicine Hematology & Oncology
DX: C50.411 Malignant neoplasm of upper-outer quadrant of right female breast (principal); C50.212 Malignant neoplasm of upper-inner quadrant of left female breast; Z17.0 Estrogen receptor positive status [ER+]; Z51.81 Encounter for therapeutic drug level monitoring; Z79.899 Other long term (current) drug therapy
CPT/HCPCS: 93308; 93356; C8924

== ENCOUNTER → 2025-06-13 | Outpatient (CLI) | payer MEDICARE, SELFPAY ==
--- NOTE | 2025-06-13 09:16 | BI_ITS ---
EXAM: DIAG MAMM W/CAD, BILAT; BILAT BRST CRIS STAND ALONE 06/13/2025 CLINICAL HISTORY: F, Age 74 y/o , FOLLOW UP TREATED BREAST CANCER, ANNUAL MAMMOGRAM TECHNIQUE: DIAG MAMM W/CAD, BILAT; BILAT BRST CRIS STAND ALONE. COMPARISON: Prior exam(s) dated 07/11/2024, 06/12/2024, 06/19/2024, 06/07/2024. FINDINGS: TISSUE DENSITY: There are scattered areas of fibroglandular density. Bilateral Breast Mammographic Findings: There are new postsurgical changes in the upper-outer right breast at posterior depth, as well as in the right axilla. No significant masses, calcifications or other abnormalities are identified. BI/Bilat Brst Cris Stand Alone IMPRESSION: Postsurgical changes upper-outer right breast and right axilla are benign. There is no evidence of malignancy in either breast. OVERALL FINAL ASSESSMENT BI-RADS 2: BENIGN RECOMMENDATION: Routine annual follow-up in 1 Year A letter with findings and recommendations will be mailed to the patient. Reading Location: [id number]
--- NOTE | 2025-06-13 09:16 | BI_ITS ---
EXAM: DIAG MAMM W/CAD, BILAT; BILAT BRST CRIS STAND ALONE 06/13/2025 CLINICAL HISTORY: F, Age 74 y/o , FOLLOW UP TREATED BREAST CANCER, ANNUAL MAMMOGRAM TECHNIQUE: DIAG MAMM W/CAD, BILAT; BILAT BRST CRIS STAND ALONE. COMPARISON: Prior exam(s) dated 07/11/2024, 06/12/2024, 06/19/2024, 06/07/2024. FINDINGS: TISSUE DENSITY: There are scattered areas of fibroglandular density. Bilateral Breast Mammographic Findings: There are new postsurgical changes in the upper-outer right breast at posterior depth, as well as in the right axilla. No significant masses, calcifications or other abnormalities are identified. BI/DIAG MAMM W/CAD, BILAT IMPRESSION: Postsurgical changes upper-outer right breast and right axilla are benign. There is no evidence of malignancy in either breast. OVERALL FINAL ASSESSMENT BI-RADS 2: BENIGN RECOMMENDATION: Routine annual follow-up in 1 Year A letter with findings and recommendations will be mailed to the patient. Reading Location: [id number]
== END | disposition home or self-care (01) ==
LOC: OPBI 09:13
PROVIDERS: PCP Family Medicine; Referring Provider Student in an Organized Health Care Education/Training Program; Visit Provider Student in an Organized Health Care Education/Training Program
DX: C50.411 Malignant neoplasm of upper-outer quadrant of right female breast (principal); Z17.0 Estrogen receptor positive status [ER+]
CPT/HCPCS: 77062; 77066; G0279

== ENCOUNTER → 2025-06-19 | Outpatient (CLI) | payer MEDICARE, SELFPAY ==
--- NOTE | 2025-06-19 14:13 | VDLE_ITS ---
Reason For Study Reason For Study: Swelling RIGHT LEFT GSV is normal. CFV is patent and compressible. Acute deep vein thrombosis is noted in the CFV, FV, Pop V, T/P Trunk, Gastroc V, PTV, and Anisha V. They are dilated and NONCOMPRESSIBLE. Procedure This is a venous duplex using B-mode, color flow and spectral Doppler. Exam performed in department. A preliminary report was called and/or faxed to SHILO Wallace. VL/Venous Duplex US, Unilateral Interpretation Summary Acute deep vein thrombosis is noted in the right common femoral vein. Acute isabel p vein thrombosis is noted in the right femoral vein. Acute deep vein thrombosis is noted in the right popliteal vein. Acute deep vein thrombosis is noted in the right tibio-peroneal trunk. Acute deep vein thrombosis is noted in the righ t posterior tibial vein. Acute deep vein thrombosis is noted in the right peroneal vein. Acute deep vein thrombosis is n oted in the right gastrocnemius vein. The right great saphenous vein appears patent and compressible segmentally. The lef t common femoral vein is patent and compressible . Ordering Physician: Arturo Olivas Referring Physician: Angel Mcginnis MD Performed By: Lizbeth Thomason RVT
--- NOTE | 2025-06-19 15:40 | CT_ITS ---
PROCEDURE: CTA CHEST W/WO CONTRAST 06/19/2025 REASON FOR EXAM: R/O PE, DYSPNEA, COUGH TECHNIQUE: CTA CHEST W/WO CONTRAST Multiplanar Sagittal and Coronal images were obtained. CONTRAST: Isovue 370 VOLUME: 94 mL One or more dose reduction techniques were used (e.g., Automated exposure control, adjustment of the mA and/or kV according to patient size, use of iterative reconstruction technique). RADIATION DOSE SUMMARY: CTDlvol: 7.18 mGy DLP: 267.93 mGycm COMPARISON: None # of known CTs in the past 12 months: 0 # of known Cardiac Nuclear Medicine Studies in the past 12 months: 0 FINDINGS: Thoracic Aorta: No aneurysm. No dissection. Heart: No right heart strain. The heart is normal size. A right-sided Port-A-Cath terminates at the cavoatrial junction. Pulmonary Vessels: Filling defect in the distal right pulmonary artery extending to the proximal upper and lower lobes proximal and segmental arteries. Hardware: None. Lymph nodes: No lymphadenopathy. Lungs and Airways: Round atelectasis with associated airspace opacity in the posterior right lower lobe. Pleura: Small right pleural effusion. Upper Abdomen: A 9.5 cm simple cyst in the right liver. Bones: CT/CTA Chest W/WO Contrast IMPRESSION: Filling defect in the distal right pulmonary artery extending to the proximal u pper and lower lobes proximal and segmental arteries consistent with pulmonary embolism. No right heart strain. Round atelectasis with associated airspace opacity in the posterior right lower lobe may represent pneumonia. Metastasis less likely but can not be excluded. Findings were discussed with Madison Brown [place] on 06/19/2025 4:56 p.m. Eastern time. Reading Location: [facility]
[2025-06-19] MEDS: 0.9% Saline Lock 10 ML Syringe IV (15:50)
== END | disposition home or self-care (01) ==
LOC: CT 14:10
PROVIDERS: PCP Family Medicine; Referring Provider Internal Medicine Hematology & Oncology; Visit Provider Internal Medicine Hematology & Oncology
DX: M79.89 Other specified soft tissue disorders (principal); I70.92 Chronic total occlusion of artery of the extremities; S82.90XA Unspecified fracture of unspecified lower leg, initial encounter for closed fracture; R06.00 Dyspnea, unspecified; R05.9 Cough, unspecified; X58.XXXA Exposure to other specified factors, initial encounter
CPT/HCPCS: 71275; 93971; Q9967; A4216

== ENCOUNTER → 2025-08-04 | Outpatient (CLI) | payer MEDICARE, SELFPAY ==
--- NOTE | 2025-08-04 12:33 | ECHOLONC_ITS ---
Reason For Study Reason For Study: Chemotherapy Procedure This was a limited 2D transthoracic echocardiogram. Myocardial strain analysis was performed in this exam to aid in the assessment of cardiac function. Exam performed in department. Left Ventricle Normal left ventricle. The global longitudinal strain = -17.0 % (normal). The left ventricular ejection fraction is 55 %. No regional wall motion abnormalities noted. Right Ventricle Normal RV size. Normal systolic function. Tricuspid Valve Normal tricuspid valve. Mild (1+) tricuspid valve insufficiency. Pulmonary artery systolic pressure is 30 mmHg. Great Vessels Normal aortic root. Pericardium/Pleural No pericardial effusion. MMode/2D Measurements & Calculations LVIDd: 5.0 cm IVSd: 1.1 cm LVIDs: 3.6 cm LVPWd: 0.87 cm LVAd ap4: 24.2 cm2 FS: 28.8 % LVLd ap4: 7.3 cm EDV(MOD-sp4): 66.1 ml EDV(sp4-el): 67.8 ml LVAs ap4: 14.7 cm2 LVLs ap4: 5.9 cm ESV(MOD-sp4): 33.1 ml ESV(sp4-el): 31.4 ml EF(MOD-sp4): 50.0 % EF(sp4-el): 53.8 % SV(MOD-sp4): 33.0 ml SV(sp4-el): 36.5 ml SI(MOD-sp4): 16.9 ml/m2 Doppler Measurements & Calculations TR max sabrina: 253.2 cm/sec TR max P.8 mmHg ECHO/ONC Echo, Limited Study Interpretation Summary Normal left ventricle. The global longitudinal strain = -17.0 % (normal). The left ventricular ejection fraction is 55 %. Pulmonary artery systolic pressure is 30 mmHg. Ordering Physician: Arturo Olivas Referring Physician: Arturo Olivas Performed By: Alber Moreno RCS
== END | disposition home or self-care (01) ==
LOC: CVS 12:31
PROVIDERS: PCP Family Medicine; Referring Provider Internal Medicine Hematology & Oncology; Visit Provider Internal Medicine Hematology & Oncology
DX: Z51.81 Encounter for therapeutic drug level monitoring (principal); Z79.899 Other long term (current) drug therapy
CPT/HCPCS: 93308; 93356

== ENCOUNTER → 2025-09-11 | Outpatient (CLI) | payer MEDICARE, SELFPAY ==
--- NOTE | 2025-09-11 11:56 | EMB_PTH ---
PATIENT: REBA BECKFORD LOC: [facility]#:[id number] AGE/SX: 74/F ROOM: RE09/11/[address]: GUILLE Perdomo : 1950 BED: DIS: 09/11/2025 SPEC #: [id number] RECD: 09/11/25 12:23 STATUS: KEYONNA REQ #: [id number] ARNIE: 09/11/25 11:[address]: Rebeca Arora NP DEPT: SURGICAL PATHOLOGY RECD BY: Rob Nava ENTERED: 09/11/25 13:29 SP TYPE: ENDOM BX/C OT DR: Dr. Angel Mcginnis MD Tissues: A - Endometrium, NOS Procedures: Surgery Specimen Level IV HEADER OPERATION: Endometrial biopsy PRE-OP DIAGNOSIS: Post menopausal bleeding TISSUE SUBMITTED: A- Endometrial tissue MICROSCOPIC DIAGNOSIS A. Endometrium, biopsy: - Few pieces of endocervical tissue with chronic endocervicitis and squamous metaplasia - Strips of endometrial surface columnar epithelium and extensive amount of clotted blood MICROSCOPIC DESCRIPTION Slides are reviewed. GROSS DESCRIPTION A. Received in formalin labeled with the patient's name and date of . Designated as endometrial tissue is a 4.6 x 2.8 x 0.3 cm aggregate of dark red-brown, hemorrhagic tissue fragments. Entirely submitted in 3 cassettes. NM 09/11/2025 CPT:97629
== END | disposition home or self-care (01) ==
LOC: LABSPEC 12:04
PROVIDERS: PCP Family Medicine; Visit Provider Nurse Practitioner Women's Health
DX: N95.0 Postmenopausal bleeding (principal)
CPT/HCPCS: 88305

== ENCOUNTER → 2025-09-15 | Outpatient (CLI) | payer MEDICARE, SELFPAY ==
--- NOTE | 2025-09-15 17:41 | US_ITS ---
PROCEDURE: PELVIC W/ TRANSVAGINAL REASON FOR EXAM: PMB TECHNIQUE: Procedure Code: USPELTVAG Modality: US Procedure: PELVIC W/ TRANSVAGINAL COMPARISON: None FINDINGS: Measurements: Uterus: 9.6 cm x 6.2 cm x 4.3 cm with a volume of 133.6 mL Endometrial Thickness: The endometrium is thickened measuring 11 mm. I suspect a 6 mm x 9 mm x 6 mm endometrial polyp. Right Ovary: Not visualized Left Ovary: Not visualized. TRANSABDOMINAL: Uterus: 9 mm x 7 mm x 6 mm fundal fibroid. Nabothian cysts. Endometrium: Endometrial thickening measuring 11 mm. I suspect a 6 mm x 9 mm x 6 mm endometrial polyp. Right ovary: Not visualized. Left ovary: Not visualized. Other: No large pelvic mass identified. Transvaginal sonography was performed to better visualize the endometrium. TRANSVAGINAL: Uterus: Anteverted. Small fundal fibroid. Endometrium: Endometrial thickening. Findings suggestive of a 6 mm x 9 mm x 6 mm endometrial polyp. Right ovary: Not visualized. Left ovary: Not visualized. Other adnexal findings: Cul-de-sac: Minimal free fluid in the pelvis within normal limits. Tenderness: US/Pelvic w/ Transvaginal IMPRESSION: Endometrial thickening measuring 11 mm. I suspect a 6 mm x 9 mm x 6 mm endomet rial polyp. Clinical follow-up recommended. Reading Location: [id number]
== END | disposition home or self-care (01) ==
LOC: OPUS 17:39
PROVIDERS: PCP Family Medicine; Referring Provider Nurse Practitioner Women's Health; Visit Provider Nurse Practitioner Women's Health
DX: N95.0 Postmenopausal bleeding (principal)
CPT/HCPCS: 76830; 76856

== ENCOUNTER 2025-10-21 11:44 | Day surgery (SDC) | payer MEDICARE, SELFPAY ==
--- NOTE | 2025-10-14 11:20 | PAT.ANE_ITS ---
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 When Was Last Pacemaker Check QUESTION #4 FULL TEXT: You/Your Family Experience fever (hyperthermia) with Anesthesia Last Oral Intake Last Oral intake: Last Oral Intake NPO since Meds taken in AM with sips of water? Meds patient instructed to take am of surgery PONV PONV - corporate communications specialist: PONV - corporate communications specialist Female Yes 10/14/25 09:18 HX of Motion Sickness No 10/14/25 09:18 HX of N/V After Surgery No 10/14/25 09:18 Non-Smoker Yes 10/14/25 09:18 Duration of Surgery greater No 10/14/25 09:18 than 60 minutes Number of Risk Factors 2 10/14/25 09:18 PONV Score Moderate Risk 10/14/25 09:18 Height & Weight Height & Weight: Anesthesia: Height & Weight Height 5 ft 8 in 09/29/25 14:17 Respiratory Assessment Respiratory Assessment - corporate communications specialist: Respiratory Tract Infection Hx - corporate communications specialist Hx Respiratory Tract Infection No 10/14/25 09:18 STOP Sleep Apnea STOP Sleep Apnea - corporate communications specialist: STOP Sleep Apnea - corporate communications specialist Hx Hypertension No 10/14/25 09:18 Hx Sleep Apnea No 10/14/25 09:18 CPAP No 10/14/25 09:18 BIPAP No 10/14/25 09:18 Do you snore loudly (louder No 10/14/25 09:18 than talking or can be heard Do you often feel tired/ No 10/14/25 09:18 fatigued/ sleepy during daytime? Has anyone observed you stop No 10/14/25 09:18 breathing during sleep? STOP Results Negative 10/14/25 09:18 QUESTION #5 FULL TEXT : Do you snore loudly (louder than talking or can be heard through closed doors)? 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 Specify any problems Hx of Preganancy in last 3 No 10/14/25 09:18 Months Nurse Filling Out Transfusion VCHRISTIN 10/14/25 09:18 & Questions: Date: 10/14/25 10/14/25 09:18 Time: 09:19 10/14/25 09:18 Patient unable to answer at this time (ie. confused, unrespo /Reproduction History /Reproductive History - corporate communications specialist: /Reproductive Hx- corporate communications specialist Hx Now No 10/14/25 09:18 Gestational Age (in weeks): EDC: Hx Hx Para Hx Section SAB No 10/14/25 09:18 Does the father of the baby or his family experience fever w Father of the baby Malignant Hypertension history comment [facility] Medical History (Updated 10/14/25 @ 09:17 by Sheila Brewer) History of Holter monitoring History of echocardiogram Cardiology follow-up encounter Fractured fibula Pulmonary embolism DVT (deep venous thrombosis) Encounter for monoclonal antibody treatment for malignancy HER2-positive carcinoma of breast Hypokalemia Lymphedema of right upper extremity Acid reflux Drug induced neutropenia Encounter for chemotherapy management Encounter for education Post-menopausal Back pain Injury of back History of stress test History of irregular heartbeat COVID ER+ (estrogen receptor positive status) Wears glasses Cancer Easy bruising Lightheadedness Heartburn Non-smoker History of colonic polyps Breast cancer, left breast (~05/2021) Multinodular non-toxic goiter Home Medications ?Medication ?Instructions ?Recorded ?Last Taken ?Type calcium 600 mg (as 1 cap PO BID 11/08/21 History carbonate)-vitamin D3 12.5 mcg (500 unit) capsule (Calcium with Vit D3) losartan 100 mg tablet 100 mg PO QDAY #90 tabs 08/30 02/21 Unknown Rx simvastatin 20 mg tablet 20 mg PO QHS #90 tabs Unknown Rx Allergy/AdvReac Type Severity Reaction Status Date / Time naproxen (From Naprosyn) AdvReac Severe Hives Verified 10/14/25 09:12 tamoxifen AdvReac Unknown DVT Verified 10/14/25 09:12 Family History Brother Colon cancer Hypertension Cancer Leukemia Mother Breast cancer Sister Breast cancer Lymphoma Hypertension Aunt Breast cancer Surgical History (Updated 10/14/25 @ 09:17 by Sheila Brewer) Hx of surgical procedure Hx of partial mastectomy S/P lumpectomy, right breast History of lung surgery History of lumpectomy of left breast (~06/2021) Hx of tubal ligation History of colonoscopy (~03/2017) History of left breast biopsy (~05/2021) History of right breast biopsy (~1980) Social History household members: spouse Smoking Status: Never smoker second hand exposure: No alcohol intake: never substance use type: does not use caffeine: No carly/mormon: Gnosticist seatbelt use: always do you feel safe at home: Yes Audit: Pertinent Findings Pertinent Findings EKG Perinent findings: REBA BECKFORD BRITT 74 F 1950 Allergy/Adv: naproxen, tamoxifen [facility] Cardiovascular Services [address] [place] [id number] 12 Lead EKG 07/11/24 0747 MR#: [id number] Acct: [id number] Name: REBA BECKFORD BRITT Rep #: [id number] : 1950 73 From: Angel Salazar MD Attending Dr: Dr. Shane Kiran MD Status: [place] [facility] [place]: Irving Bingham MD Date: 07/11/24 [place] [facility] [place] F C Admitted: Test Reason : PRE OP Blood Pressure : / mmHG Vent. Rate : 075 BPM Atrial Rate : 075 BPM P-R Int : 146 ms QRS Dur : 072 ms QT Int : 384 ms P-R-T Axes : 072 054 052 degrees QTc Int : 428 ms Normal sinus rhythm Possible Left atrial enlargement Low voltage QRS Nonspecific ST abnormality Abnormal ECG BASELINE ARTIFACT Confirmed by Angel Salazar ([id number]), communications editor CAROLYN CROUCH ([id number]) on 07/15/2024 10:55:30 AM Referred By: Shane Kiran Confirmed By:Angel Salazar 07/15/24 1055 Date Angel Salazar MD CC: Dr. Shane Kiran MD; Dr. Irving Bingham MD; Dr. Angel Mcginnis MD ~ Signed Stress test pertinent findings: Cardiovascular Services [address] [facility] [place] [address] Stress Test Echo W/Contrast MR#: [id number] Acct: [id number] Name: REBA BECKFORD Rep #: [id number] : 1950 70 From: Sridhar Fay MD Primary Care: Dr. Angel Mcginnis MD Status: REG CLI Ordering Dr: Michelle Berger,Out o. Sex: F C Reason For Study: Lung Tumor; Pre-Op Stress Results Protocol: Eran Protocol WITH DEFINITY Maximum Predicted HR: 152 bpm Target HR: 129 bpm % Maximum Predicted HR: 102 % DurationHeart Rate Stage (mm:ss) (bpm) BP Comment Baseline 66 122/82No Chest Pain; 5 ML Diluted Definity Eran Protocol Stage I 3:00 111 130/80No Chest Pain Eran Protocol Stage II 3:00 126 132/70No Chest Pain; Mild Dyspnea Eran Protocol Stage III 3:00 155 144/64No Chest Pain; Mod Dyspnea Recovery 90 116/76No Chest Pain; No Dyspnea Stress Duration: 9:00 mm:ss Maximum Stress HR: 155 bpm METS: 10 Baseline Echocardiogram Findings Stress Echo Wall motion Data Resting WM Intermediate WM Stress WM ECHO/Stress Test Echo W/Contrast Interpretation Summary Exercise stress echocardiogram. 70-year-old lady with a history of lung carcinoma for preop evaluation. Stress protocol: Resting EKG demonstrates normal sinus rhythm with a rate of 65 bpm normal intervals are noted resting blood pressure is 122/82 mmHg. The patient exercised according to the regular Eran protocol for total duration of 9 minutes. The maximum heart rate attained was 160 bpm which was 105% of max impact at heart rate the maximum workload was 10.1 metabolic equivalents. At rest there were no ST or T wave changes noted suggest ischemia and at peak exercise upsloping ST changes were noted with did not meet the criteria for ischemia. No clinical angina was noted. The resting blood pressure was 122/82 with a peak blood pressure 144/64 mmHg which was a good blood pressure response to exercise. Stress echocardiogram. Resting echocardiogram was performed with Definity enhancement demonstrating ejection fraction of 55%. At peak exercise there was thickening of all ramirez and reduction of low ventricular cavity size peaking at 70%. No wall motion abnormalities were noted. Conclusion: Exercise stress echo with no EKG criteria for ischemia at a high workload. Excellent functional capacity. Normal stress echocardiographic imaging. Ordering Physician: Lian Contreras Referring Physician: Sridhar Fay Performed By: Patricia Maciel, RDCS, RVT 09/22/21 1800 Date Sridhar Fay MD CC: Dr. Angel Mcginnis MD; LIAN CONTRERAS ~ Date Dictated: 09/22/2158 Date Transcribed: 09/22/21 1800 Hearing Aid Technician: Signed Echo (EF%) pertinent findings: [facility] Cardi[facility] Services [address] [place] [address] ONC Echo, Limited Study 08/04/25 6517 MR#: [id number] Acct: [id number] Name: REBA BECKFORD Rep #: [id number] : 1950 74 From: Sridhar Fay MD Attending Dr: Dr. Arturo Olivas MD Status: REG CLI Ordering Dr: Arturo Olivas MD Date: 08/04/25 Location: [facility] Sex: F C Admitted: Reason For Study Reason For Study: Chemotherapy Procedure This was a limited 2D transthoracic echocardiogram. Myocardial strain analysis was performed in this exam to aid in the assessment of cardiac function. Exam performed in department. Left Ventricle Normal left ventricle. The global longitudinal strain = -17.0 % (normal). The left ventricular ejection fraction is 55 %. No regional wall motion abnormalities noted. Right Ventricle Normal RV size. Normal systolic function. Tricuspid Valve Normal tricuspid valve. Mild (1+) tricuspid valve insufficiency. Pulmonary artery systolic pressure is 30 mmHg. Great Vessels Normal aortic root. Pericardium/Pleural No pericardial effusion. MMode/2D Measurements & Calculations LVIDd: 5.0 cm IVSd: 1.1 cm LVIDs: 3.6 cm LVPWd: 0.87 cm LVAd ap4: 24.2 cm2 FS: 28.8 % LVLd ap4: 7.3 cm EDV(MOD-sp4): 66.1 ml EDV(sp4-el): 67.8 ml LVAs ap4: 14.7 cm2 LVLs ap4: 5.9 cm ESV(MOD-sp4): 33.1 ml ESV(sp4-el): 31.4 ml EF(MOD-sp4): 50.0 % EF(sp4-el): 53.8 % SV(MOD-sp4): 33.0 ml SV(sp4-el): 36.5 ml SI(MOD-sp4): 16.9 ml/m2 Doppler Measurements & Calculations TR max sabrina: 253.2 cm/sec TR max P.8 mmHg ECHO/ONC Echo, Limited Study Interpretation Summary Normal left ventricle. The global longitudinal strain = -17.0 % (normal). The left ventricular ejection fraction is 55 %. Pulmonary artery systolic pressure is 30 mmHg. Ordering Physician: Arturo Olivas Referring Physician: Arturo Olivas Performed By: Alber Moreno RCS 08/04/254 Date Sridhar Fay MD CC: Dr. Arturo Olivas MD; Dr. Angel Mcginnis MD ~ Date Dictated: 08/04/25 1254 Date Transcribed: 08/04/251643 Hearing Aid Technician: Signed Recommendation Anesthesia Recommendation Anesthesia recommendation: OPTIMIZED for anesthesia
[2025-10-21] VITALS (10 sets, daily range): BP systolic 115–145; BP diastolic 60–72; PULSE 58–80; RESP 16–18; TEMP 36.4–36.6; O2SAT 97–99; BMI 26.9
--- NOTE | 2025-10-21 11:52 | HP.PCM_ITS ---
History and Physical Date of Admission: 10/21/25 Intake Vital Signs 09/12/2510:18 09/29/2514:17 Height 5 ft 8 in 5 ft 8 in Weight: 182 lb 9 oz BMI 27.7 BP 153/85 H Intake Visit Reasons: preop/consult hysteroscopy D&C per Chief Complaint: Preop D&C Airline Pilot/First Officer Required: No Is patient in pain?: No Allergies naproxen (From Naprosyn) Adverse Reaction (Severe, Verified 09/29/25 14:15) Hives tamoxifen Adverse Reaction (Unknown, Verified 09/29/25 14:15) DVT Medications ?Medication ?Instructions ?Recorded ?Confirmed ?Type calcium 600 mg (as 1 cap PO BID 11/08/21 09/29/25 History carbonate)-vitamin D3 12.5 mcg (500 unit) capsule (Calcium with Vit D3) losartan 100 mg tablet 100 mg PO QDAY #90 tabs 09/12/25 5 Rx simvastatin 20 mg tablet 20 mg PO QHS #90 tabs 09/12/25 09/29/25 Rx Is last menstrual period known: No Post menopausal: Yes Patient : No : No [facility] Medical History Fractured fibula Pulmonary embolism DVT (deep venous thrombosis) Encounter for monoclonal antibody treatment for malignancy HER2-positive carcinoma of breast Hypokalemia Lymphedema of right upper extremity Acid reflux Drug induced neutropenia Encounter for chemotherapy management Encounter for education Post-menopausal Back pain Injury of back History of stress test History of irregular heartbeat COVID ER+ (estrogen receptor positive status) Wears glasses Cancer Easy bruising Lightheadedness Heartburn Non-smoker History of colonic polyps Breast cancer, left breast (~05/2021) Multinodular non-toxic goiter Surgical History Hx of partial mastectomy S/P lumpectomy, right breast History of lung surgery History of lumpectomy of left breast (~06/2021) Hx of tubal ligation History of colonoscopy (~03/2017) History of left breast biopsy (~05/2021) History of right breast biopsy (~1980) Family History Brother Colon cancer Hypertension Cancer Leukemia Mother Breast cancer Sister Breast cancer Lymphoma Hypertension Aunt Breast cancer Social History household members: spouse Smoking Status: Never smoker second hand exposure: No alcohol intake: never substance use type: does not use caffeine: No carly/episcopal: Muslim seatbelt use: always do you feel safe at home: Yes HPI preop/consult hysteroscopy D&C per Details: The patient is a 74-year-old female with a history of endometrial polyp, breast cancer, and blood clots, presenting for evaluation of postmenopausal bleeding. Postmenopausal Bleeding - Reports a single episode of significant bleeding followed by occasional spotting described as brownish pink. - Does not require regular use of pads or tampons but uses them occasionally due to intermittent spotting. - Recent ultrasound revealed a probable endometrial polyp. - Previous attempt at endometrial biopsy was unsuccessful due to cervical stenosis. Breast Cancer - History of breast cancer, previously on tamoxifen, which has been discontinued. - Scheduled for port removal this at the [facility]. Blood Clots - History of blood clots, previously on Eliquis, which has been discontinued. - Possible etiologies for blood clots include tamoxifen use, a previous fibula fracture, and the presence of a port. Current Medications and Supplements - Simvastatin, taken at night. - Losartan, taken at night. History 2 Elective abortions Hx Para 2 Spontaneous abortions Hx # Term Pregnancies Ectopic pregnancies Hx # Pregnancies Multiple births # of living children 2 ROS Const ROS Unobtainable: All systems reviewed & are unremarkable except as noted in H Resp Resp: Reports system reviewed and no additional complaints, except as documented; Denies cough GI GI: Reports as per HPI Psych Psych: Reports system reviewed and no additional complaints, except as documented Exam Const General: cooperative, healthy appearing, comfortable and no acute distress Resp Effort & Inspection: normal respiratory effort Skin General: no rashes or lesions noted Psych Appearance: grossly normal Speech and Movement: speech and movement normal Coding Level of Care Code Off vis,est,level 4 Diagnoses PMB (postmenopausal bleeding) N95.0 Assessment and Plan Assessment and Plan (1) PMB (postmenopausal bleeding): Status: Acute Comment: EMB and US pending Plan: # Polyp of corpus uteri (N84.0) # Abnormal uterine and vaginal bleeding, unspecified (N93.9) - Endometrial polyp identified on ultrasound as likely source of abnormal uterine bleeding. - Prior endometrial biopsy attempt was unsuccessful due to inability to access uterine cavity. - Scheduled for D&C with polypectomy under monitored anesthesia care during . - Discussed procedure details, including use of light sedation, cervical dilation, and removal of polyp; clarified that D&C and polypectomy are performed together. - Reviewed common surgical risks (bleeding, infection, damage to surrounding tissue); patient provided informed consent. - Preoperative instructions provided, including body wash night before and day of surgery. - Preoperative labs (CBC, type and screen) to be completed 2?14 days prior to surgery. - EKG to be scheduled prior to procedure. - Advised to hold simvastatin and losartan on day of surgery. # Encounter for other preprocedural examination (Z01.818) # Personal history of malignant neoplasm of breast (Z85.3) - No longer taking tamoxifen. - Port removal scheduled for at [facility]. 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 - Patient to hold simvastatin on the morning of surgery; continue taking losartan as scheduled.
--- OUTSIDE RECORDS SUMMARY | 2025-10-21 12:11 | XMS RPT_ITS | CCD ---
Author Organization [facility] CliniSyma Care Team Providers Care Cable Lacer Name Role Phone Kristina Mcginnis Unavailable Unavailable StenKristina palm Unavailable Unavailable StenKristina palm D Unavailable Unavailable Unavailable MARTHA ANDRES Referring Unavailable MARTHA ANDRES Admitting Unavailable MARTHA ANDRES Referring Unavailable MARTHA ANDRES Admitting Unavailable Kristina Mcginnis MD Primary Care Provider Unavailable Unavailable Dr. Kristina Mcginnis Primary Care Provider Dr. Kristina Mcginnis Referring Provider [phone] Dr. Arturo Olivas Attending Provider Dr. Kan Ang Attending Provider [phone] Dr. Arun Sebastian Attending Provider Kristina Mcginnis Unavailable Phu Bean I Unavailable Unavailable Kristina Mcginnis MD Primary Care Provider KRISTINA MCGINNIS Referring Unavailable MARTHA ANDRES Attending Unavailable KRISTINA MCGINNIS Primary Violet Unavailable RAS, KRISTINA Primary Care Unavailable OFELIA CHARLES Attending Unavailable ARTURO OLIVAS Referring Unavailable RAS, KRISTINA Primary Care Unavailable OFELIA CHARLES Attending Unavailable ARTURO OLIVAS Referring Unavailable KRISTINA MCGINNIS Primary Care Unavailable RAS, KRISTINA Primary Care Unavailable OSVALDO PEDROZA Attending Unavailable OSVALDO PEDROZA Referring Unavailable Rob Coy Unavailable Unavailable Ras, Dr. Kristina Maldonado Primary Care Binava iltong Coy, Ms. Rob Fajardo Attending Nancy Mcginnis, Dr. Kristina Maldonado Primary Care Unava ilable Ras, Dr. Kristina Maldonado Attending Unava ilable Stencel, Dr. Kristina Maldonado Referring Unava ilable Stencel, Dr. Kristina Maldonado Primary Care Unava ilable MO[place]AW, [place] POLO Attending Unavailable Stencel, Dr. Kristina Maldonado Primary Care Unava ilable Stencel, Dr. Kristina Maldonado Referring Unava ilable THOMAE, DO LEYLA R Admitting Unavailable THOMAE, DO LEYLA R Attending Unavailable Kristina Mcginnis MD Primary Care Provider Kristina Mcginnis MD Unavailable Ras, Dr. Ortiz Primary Care Provider Ras, Dr. Ortiz Referring Provider Dr. Arturo Olivas Attending Provider Dr. Kan Ang Attending Provider Ras, Dr. Ortiz Primary Care Provider Ras, Dr. Ortiz Referring Provider Dr. Arturo Olivas Attending Provider Dr. Kristina Mcginnis MD Primary Care Provider Dr. Kristina Mcginnis MD Referring Provider Hawk CAMPBELL-C, Liz Attending Provider Ashley Henderson PA-C Attending Provider Dr. Arturo Olivas MD Attending Provider Dr. Kan Ang DO Attending Provider Hawk AUTOMOTIVE QUALITY MANAGER-C, Liz Referring Provider Dr. Sridhar Fay MD Attending Provider Dr. Sridhar Fay MD Referring Provider Dr. Arturo Olivas MD Referring Provider Dr. Dusty Valdez MD Attending Provider Dr. Kristina Mcginnis MD Primary Care Provider Dr. Kristina Mcginnis MD Referring Provider Dr. Arturo Olivas MD Attending Provider Hawk AUTOMOTIVE QUALITY MANAGER-C, Liz Attending Provider Sav HUERTA, Dr. Omer Attending Provider Sav HUERTA, Dr. Omer Referring Provider Nya CHRISTIANSEN, Dr. Waller Attending Provider Ras CHRISTIANSEN, Dr. Ortiz Primary Care Provider Ras CHRISTIANSEN, Dr. Ortiz Referring Provider Brendon CHRISTIANESN, Dr. Morris Attending Provider Ras CHRISTIANSEN, Kristina Carroll Primary Care Provider Kristina Mcginnis MD Unavailable Ras CHRISTIANSEN, Dr. Ortiz Primary Care Provider [phone] Sav HUERTA, Dr. Omer Attending Provider Sav HUERTA, Dr. Omer Referring Provider Ras CHRISTIANSEN, Dr. Ortiz Referring Provider Brendon CHRISTIANSEN, Dr. Morris Attending Provider Brendon CHRISTIANSEN, Dr. Morris Referring Provider Ras CHRISTIANSEN, Dr. Ortiz Primary Care Provider [phone] Ras CHRISTIANSEN, Dr. Ortiz Referring Provider Dr. Arturo Olivas MD Attending Provider Dr. Kan Ang DO Attending Provider Dr. Darryl Real MD Attending Provider Ras CHRISTIANSEN, Dr. Ortiz Primary Care Provider Ras CHRISTIANSEN, Dr. Ortiz Referring Provider Brendon CHRISTIANSEN, Dr. Morris Attending Provider Nya CHRISTIANSEN, Dr. Waller Attending Provider Dr. Kan Ang DO Referring Provider ROMULO HERNANDEZ Attending Unavailable KRISTINA MCGINNIS Primary Care Unavailable KRISTINA MCGINNIS Attending Unavailable STENKRSITINA PALM Referring Unavailable STENCEL, KRISTINA D Primary Care Unavailable Stencel Dr. Kristina CHRISTIANSEN Primary Care Provider [phone] Dr. Kristina Mcginnis MD Referring Provider Dr. Kan Ang DO Attending Provider Zuleima CHRISTIANSEN, Dr. Michoacano Cool Attending Provider Ras CHRISTIANSEN, Dr. Ortiz Primary Care Physician Brendon CHRISTIANSEN, Dr. Morris Attending Physician Nya CHRISTIANSEN, Dr. Waller Attending Physician Ras CHRISTIANSEN, Dr. Ortiz Referring Provider Farhan CHRISTIANSEN, Dr. Andrews Attending Physician Sav HUERTA, Dr. Omer Attending Physician Zuleima CHRISTIANSEN, Dr. Michoacano Cool Attending Physician FASCIONE, HAVEN M Referring Unavailable STENCEL, KRISTINA D Primary Care Unavailable FASCIONE, HAVEN M Referring Unavailable STENCEL, KRISTINA D Primary Care Unavailable STENCEL, KRISTINA D Primary Care Unavailable ANTONIETTAHERIBERTO E Attending Unavailable FASCIONE, HAVEN M Referring Unavailable STENCEL, KRISTINA D Primary Care Unavailable FASCIONE, HAVEN M Referring Unavailable STENCEL, KRISTINA D Primary Care Unavailable Stencel , Dr. Ortiz Primary Care Physician Dr. Kristina Mcginnis MD Referring Provider Dr. Arturo Olivas MD Attending Physician Dr. Arturo Olivas MD Referring Provider Nya CHRISTIANSEN, Dr. Waller Attending Physician Stencel, Kristina Primary Care Unavailable SavKan Attending Unavailable SavKan dominique Referring Unavailable Stencel, Kristina Primary Care Unavailable Stencel, Kristina Referring Unavailable IsckarArturo raines Attending Unavailable Stencel, Kristina Primary Care Unavailable Stencel, Kristina Referring Unavailable Sridhar Fay Attending Unavailable Stencel, Kristina Primary Care Unavailable IsckarusArturo Attending Unavailable Stencel, Kristina Referring Unavailable Stencel, Kristina Primary Care Unavailable IsckarusArturo Attending Unavailable Stencel, Kristina Referring Unavailable Stencel, Kristina Primary Care Unavailable Stencel, Kristina Referring Unavailable Isckarus, Mansour Attending Unavailable Stencel, Kristina Primary Care Unavailable Stencel, Kristina Referring Unavailable Hawk AUTOMOTIVE QUALITY MANAGER, Liz Attending Unavailable Stencel, Kristina Primary Care Unavailable Sav, Kan Referring Unavailable Sav, Kan Attending Unavailable Sav, Kan Attending Unavailable Stencel, Kristina Primary Care Unavailable Stencel, Kristina Primary Care Unavailable Isckarus, Mansour Referring Unavailable Isckarus, Mansour Attending Unavailable Stencel, Kristina Primary Care Unavailable Sav, Kan Attending Unavailable Sav, Kan Referring Unavailable Stencel, Kristina Primary Care Unavailable Isckarus, Mansour Attending Unavailable Isckarus, Mansour Referring Unavailable Stencel, Kristina Primary Care Unavailable Nya, Sridhar Attending Unavailable Nya, Rolla Referring Unavailable Stencel, Kristina Primary Care Unavailable Stencel, Kristina Referring Unavailable Isckarus, Mansour Attending Unavailable Stencel, Kristina Primary Care Unavailable Stencel, Kristina Referring Unavailable Isckarus, Mansour Attending Unavailable Stencel, Kristina Primary Care Unavailable Isckarus, Moour Attending Unavailable Stencel, Kristina Referring Unavailable Stencel, Kristina Primary Care Unavailable Darryl Real Attending Unavailable Stencel, Kristina Referring Unavailable Stencel, Kristina Primary Care Unavailable Sav, Kan Attending Unavailable Sav, Kan Referring Unavailable Stencel, Kristina Primary Care Unavailable Nya, Sridhar Attending Unavailable Stencel, Kristina Primary Care Unavailable Isckarus, Arturo Attending Unavailable Isckarus, Moour Referring Unavailable Isckarus, Arturo Attending Unavailable Stencel, Kristina Primary Care Unavailable Isckarus, Mansour Referring Unavailable Stencel, Kristina Primary Care Unavailable Isckarus, Moour Attending Unavailable Stencel, Kristina Referring Unavailable Isckarus, Arturo Attending Unavailable Stencel, Kristina Referring Unavailable Stencel, Kristina Primary Care Unavailable Stencel, Kristina Primary Care Unavailable Dusty Valdez Attending Unavailable Ulysses AUTOMOTIVE QUALITY MANAGER, Rebeca Attending Unavailable Stencel, Kristina Referring Unavailable Stencel, Kristina Primary Care Unavailable Stencel, Kristina Primary Care Unavailable Nya, Rolla Attending Unavailable Nya, Sridhar Attending Unavailable Stencel, Kristina Primary Care Unavailable Stencel, Kristina Primary Care Unavailable Hawk AUTOMOTIVE QUALITY MANAGER, Liz Attending Unavailable Hawk AUTOMOTIVE QUALITY MANAGER, Liz Referring Unavailable Stencel, Kristina Primary Care Unavailable Nya, Sridhar Attending Unavailable Nya, Rolla Referring Unavailable Stencel, Kristina Primary Care Unavailable Sav, Kan Referring Unavailable Sav, Kan Attending Unavailable Stencel, Kristina Primary Care Unavailable Sav, Kan Attending Unavailable Sav, Kan Referring Unavailable Stencel, Kristina Primary Care Unavailable Stencel, Kristina Referring Unavailable Hawk AUTOMOTIVE QUALITY MANAGER, Liz Attending Unavailable Stencel, Kristina Primary Care Unavailable Stencel, Kristina Referring Unavailable Hawk AUTOMOTIVE QUALITY MANAGER, Liz Attending Unavailable Stencel, Kristina Primary Care Unavailable Sav, Kan Attending Unavailable Sav, Kan Referring Unavailable Stencel, Kristina Primary Care Unavailable Stencel, Kristina Referring Unavailable Isckarus, Mansjosué Attending Unavailable Isckarus, Mansour Attending Unavailable Stencel, Kristina Primary Care Unavailable Stencel, Kristina Referring Unavailable Isckarus, Mansour Attending Unavailable Stencel, Kristina Primary Care Unavailable Stencel, Kristina Referring Unavailable Stencel, Kristina Referring Unavailable Stencel, Kristina Primary Care Unavailable Hawk AUTOMOTIVE QUALITY MANAGER, Liz Attending Unavailable Stencel, Kristina Referring Unavailable Stencel, Kristina Primary Care Unavailable Hawk AUTOMOTIVE QUALITY MANAGER, Liz Attending Unavailable Stencel, Kristina Primary Care Unavailable Sav, Kan Attending Unavailable Stencel, Kristina Referring Unavailable Stencel, Kristina Primary Care Unavailable Stencel, Kristina Referring Unavailable Hawk AUTOMOTIVE QUALITY MANAGER, Liz Attending Unavailable Ashley Live Attending Unavailable Stencel, Kristina Primary Care Unavailable Stencel, Kristina Referring Unavailable Stencel, Kristina Primary Care Unavailable Stencel, Kristina Referring Unavailable Isckarus, Mansjosué Attending Unavailable Stencel, Kristina Primary Care Unavailable Sav, Kan Attending Unavailable Sav, Kan Referring Unavailable Stencel, Kristina Primary Care Unavailable Sav, Kan Attending Unavailable Sav, Kan Referring Unavailable Stencel, Kristina Referring Unavailable Hawk AUTOMOTIVE QUALITY MANAGER, Liz Attending Unavailable Stencel, Kristina Primary Care Unavailable Stencel, Kristina Primary Care Unavailable Sav, Kan Attending Unavailable Stencel, Kristina Referring Unavailable Isckarus, Mansour Attending Unavailable Stencel, Kristina Primary Care Unavailable Stencel, Kristina Referring Unavailable Stencel, Kristina Primary Care Unavailable Nya, Sridhar Attending Unavailable Stencel, Kristina Referring Unavailable Stencel, Kristina Primary Care Unavailable Stencel, Kristina Referring Unavailable Isckarus, Mansour Attending Unavailable Stencel, Kristina Primary Care Unavailable Sav, Kan Attending Unavailable Stencel, Kristina Referring Unavailable Isckarus, Mansour Attending Unavailable Stencel, Kristina Primary Care Unavailable Isckarus, Mansour Referring Unavailable Allergies Allergy Classification Reported Allergen(s) Allergy Type Date of Onset Reaction(s) Facility NSAIDs (8 sources) Naproxen; Translations: [Naprosyn] Drug Allergy [facility] Work Phone: (13 sources) Naproxen; Translations: [Naprosyn] Drug Allergy [facility] Work Phone: (20 sources) Naproxen; Translations: [NAPROXEN] Drug Allergy 06-21-2021 Hives [facility] (6 sources) Tamoxifen Drug Allergy 06-19-2025 DVT [facility] Comment on above: Concomitant with bustillos ited mobility due to fracture right fibula (1 source) Naproxen Drug Allergy 08-27-2025 [facility] (1 source) Tamoxifen Drug Allergy 08-27-2025 [facility] Medications Current Medications Medication Drug Class(es) Dates Sig (Normalized) Sig (Original) acetaminophen 325 mg oral tablet (3 sources) Start: 10-09-2021 take 2 tablets by mouth every six hours as needed acetaminophen 325 MG tablet Take 2 tablets by mouth every 6 hours as needed for Mild Pain. 0 10/09/2021 Active amoxicillin 875 mg / clavulanate 125 mg oral tablet (1 source) Penicillin-class Antibacterial Start: 11-27-2023 End: 12-04-2023 take 1 tablet by mouth twice daily at mealtime amoxicillin-pot clavulanate (Augmentin) 875-125 mg tablet Indications: Acute cough Take 1 tablet (875 mg) by mouth 2 times a day with meals for 7 days. 14 tablet 0 11/27/2023 12/04/2023 Active apixaban 5 mg oral tablet (11 sources) Factor Xa Inhibitor Start: 07-10-2025 End: 07-31-2025 take 1 tablet by mouth twice daily Start: 06-19-2025 End: 07-10-2025 take 1 tablet by mouth once daily, then take 5 mg by mouth twice daily Apixaban (Eliquis Dvt-Pe Treat 30d Start) 5 mg (74 tabs) tablets,dose pack Discontinued 0 PO per package directions 74 0 June 19, 2025 12:00am July 10, 2025 11:16am Deep vein thrombosis (DVT) orally per package directions; PO PER PKG DIR 10 Mg p.o. daily for 7 days then 5 Mg twice daily to complete 3 months course Start: 06-19-2025 take 1 tablet by tomás th once daily, then take 5 mg by mouth twice daily Apixaban (Eliquis Dvt-Pe Treat 30d Start) 5 mg (74 tabs) tablets,dose pack Active 0 PO per package directions 74 0 June 19, 2025 12:00am Deep vein thrombosis (DVT) orally per package directions; PO PER PKG DIR 10 Mg p.o. daily for 7 days then 5 Mg twice daily to complete 3 months course azithromycin 250 mg oral tablet (6 sources) Macrolide Antimicrobial Start: 06-14-2025 azithromycin (Zithromax Z-Natalio) 250 mg tablet Indications: Viral URI with cough Take 2 tablets by mouth at once on day 1, then 1 tablet once a day on days 2-5. Take with a meal. 6 tablet 06/14/2025 12:18 PM EDT 06/14/2025 Active Start: 11-17-2023 End: 11-27-2023 azithromycin (Zithromax Z-Pa k) 250 mg tablet Indications: Acute bronchitis, unspecified organism Take 2 tablets by mouth at once on day 1, then 1 tablet once a day on days 2-5. Take with a meal. 6 tablet 0 11/17/2023 11/27/2023 Discontinued (Med List Cleanup) Start: 02-28-2023 take 2 tablets by mo cox branson once, then take 1 tablet by mouth once daily azithromycin 250 mg oral tablet ; Take 2 tabs (500mg) x 1 days, then 1 tab (250mg) once daily x 4 days Quantity: 6 Refills: 0 Ordered: 28-Feb-2023 Rob Coy Start: 28-Feb-2023 Generic Substitution Allowed Comments: Do not take dairy products, antacids, or iron preparations within one hour of this medication.Finish all this medication unless otherwise directed by prescriber. Comment on above: Do not take dairy pr oducts, antacids, or iron preparations within one hour of this medication.Finish all this medication unless otherwise directed by prescriber. benzonatate 100 mg oral capsule (3 sources) Non-narcotic Antitussive Start: 025 take 1-2 capsules by mouth every eight hours for cough benzonatate (Tessalon) 100 mg capsule Indications: Viral URI with cough Take 1-2 capsules (100-200 mg) by mouth every 8 hours if needed for cough. Do not crush or chew. 60 capsule 06/14/2025 12:18 PM EDT 06/14/2025 Active bisacodyl 10 mg rectal suppository (3 sources) Stimulant Laxative Start: bisacodyl 10 MG Suppository suppository Insert 1 suppository rectally daily as needed for Constipation (if no bowel movement in 48 hours). 0 10/09/2021 Active calcium carbonate 1500 mg oral tablet (15 sources) Start: take 2 tablets by mouth once daily calcium carbonate 600 mg calcium (1,500 mg) tablet Take 2 tablets (3,000 mg) by mouth once daily. 04/27/2022 Active Start: 04-27-2022 take 2 tablets by mo cox branson once daily calcium carbonate 600 mg calcium (1,500 mg) tablet Take 2 tablets (1,200 mg) by mouth once daily. 0 04/27/2022 Active calcium carbonate 1500 mg / cholecalciferol 500 unt oral capsule (20 sources) Vitamin D Start: 11-08-2021 Calcium Carb-C holecalciferol 600-500 MG-UNIT capsule Take by mouth. 0 11/08/2021 Active Start: 11-08-2021 take 1 tablet by tomás twice daily Calcium 600+D oral tablet ; 1 tab(s) orally 2 times a day Quantity: 0 Refills: 0 Ordered: 30-May-2022 Sarahi Ramirez Generic Substitution Allowed docusate sodium 100 mg oral capsule (3 sources) Start: 10-09-2021 take 1 capsule by mouth twice daily as needed for constipation docusate 100 MG capsule Take 1 capsule by mouth 2 times daily as needed for Constipation. 0 10/09/2021 Active lidocaine 25 mg/ml / prilocaine 25 mg/ml topical cream (13 sources) Antiarrhythmic, Amide Local Anesthetic Start: 08-19-2024 ondansetron 8 mg disintegrating oral tablet (13 sources) Serotonin-3 Receptor Antagonist Start: 08-19-2024 take 1 tablet by mouth every eight hours as needed for nausea and vomiting predniSONE 10 mg oral tablet (2 sources) Start: 11-27-2023 End: 12-02-2023 take 4 tablets by mouth once daily predniSONE (Deltasone) 10 mg tablet Indications: Acute cough Take 4 tablets (40 mg) by mouth once daily for 5 days. 20 tablet 0 11/27/2023 12/02/2023 Active Start: 02-28-2023 End: 03-04-2023 take 1 tablet by mouth once daily at mealtime predniSONE 20 mg oral tablet ; 1 tab(s) orally once a day Quantity: 5 Refills: 0 Ordered: 28-Feb-2023 Rob Coy Start: 28-Feb-2023 End: 04-Mar-2023 Generic Substitution Allowed Comments: It is very important that you take or use this exactly as directed. Do not skip doses or discontinue unless directed by your doctor.Obtain medical advice before taking any non-prescription drugs as some may affect the action of this medication.Take with food or milk. Comment on above: It is very important that you take or use this exactly as directed. Do not skip doses or discontinue unless directed by your doctor.Obtain medical advice before taking any non-prescription drugs as some may affect the action of this medication.Take with food or milk. sennosides, mcfp 17.2 mg oral tablet (3 sources) Start: take 1 tablet by mouth every twelve hours as needed senna 17.2 MG tablet Take 1 tablet by mouth every 12 hours as needed for Constipation. 0 10/09/2021 Active traMADol hydrochloride 50 mg oral tablet (2 sources) Opioid Agonist Start: 021 take 1 tablet by mouth every four hours as needed for pain traMADol 50 MG tablet Indications: Solitary fibrous tumor , Acute postoperative pain Take 1 tablet by mouth every 4 hours as needed for moderate pain for up to 7 days. 28 tablet 0 10/09/2021 Active Completed/Discontinued Medications Medication Drug Class(es) Dates Sig (Normalized) Sig (Original) [id number] 200 actuat albuterol 0.09 mg/actuat metered dose inhaler (1 source) beta2-Adrenergic Agonist Start: 02-28-2023 take 2 puff(s) by inhalation twice daily as needed for cough albuterol 90 mcg/inh inhalation aerosol ; 2 puff(s) inhaled 2 times a day as needed for cough Quantity: 8.5 Refills: 0 Ordered: 28-Feb-2023 Rob Coy Start: 28-Feb-2023 Generic Substitution Allowed Comments: For inhalation only.It is very important that you take or use this exactly as directed. Do not skip doses or discontinue unless directed by your doctor.Obtain medical advice before taking any non-prescription drugs as some may affect the action of this medication.Shake well before use. Comment on above: For inhalation only. It is very important that you take or use this exactly as directed. Do not skip doses or discontinue unless directed by your doctor.Obtain medical advice before taking any non-prescription drugs as some may affect the action of this medication.Shake well before use. anastrozole 1 mg oral tablet (20 sources) Aromatase Inhibitor Start: 07-29-2021 End: 04-29-2025 take 1 tablet by mouth once daily Anastrozole 1 mg tablet Discontinued 1 mg PO DAILY 90 3 April 29, 2024 3:23pm July 10, 2024 10:53am Malignant neoplasm of female breast Estrogen receptor positive tumor status Malignant neoplasm of upper-inner quadrant of left female breast Estrogen receptor positive status [ER+] doxycycline monohydrate 100 mg oral capsule (13 sources) Tetracycline-class Drug Start: 09-12-2024 End: 09-19-2024 take 1 capsule by mouth twice daily Doxycycline Monohydrate 100 mg capsule Discontinued 100 mg PO TWICE A DAY 14 7 0 September 12, 2024 1:00am September 18, 2024 1:00am September 19, 2024 1:09am Ahfzarqc-Zma-Iqwr- Fa-Vit K-Lut (Centrum Silver Women) 8 mg iron-400 mcg-300 mcg tablet (15 sources) Start: 11-16-2022 End: 05-17-2023 Afougpnq-Yhs-Ivop- Fa-Vit K-Lut (Centrum Silver Women) 8 mg iron-400 mcg-300 mcg tablet Discontinued 1 {tbl} PO DAILY as needed November 16, 2022 1:00am May 17, 2023 2:07pm Start: 11-16-2022 End: 05-17-2023 take 1 tablet by mouth once daily Filddxhp-Xse-Yipi-Fa-Vit K-Lut (Centrum Silver Women) 8 mg iron-400 mcg-300 mcg tablet Discontinued 1 TABLET PO DAILY November 16, 2022 1:00am May 17, 2023 2:07pm No Reported Medications (2 sources) No Reported Medi cations Refills: 0 DO Active No Reported Medi cations Refills: 0 Active No Reported Medications (13 sources) No Reported Medications Quantity: 0 Refills: 0 Ordered: 23-Apr-2020 DO Active oxyCODONE hydrochloride 5 mg oral tablet (13 sources) Opioid Agonist Start: 4 End: 4 take 5-10 mg by mouth every four hours as needed for pain Oxycodone 5 mg Tablet Discontinued 5 - 10 mg PO EVERY 4 HOURS NEEDED as needed for Pain Score 4-10 15 5 0 July 11, 2024 July 24, 2024 2:34pm Malignant neoplasm of right breast Malignant neoplasm of upper-outer quadrant of right female breast Estrogen receptor positive status [ER+] potassium chloride 10 meq extended release oral capsule (13 sources) Start: 4 End: 5 take 1 capsule by mouth once daily Potassium Chloride 10 mEq capsule, extended release Discontinued 10 meq PO daily 30 2 October 17, 2024 1:00am January 23, 2025 11:36am Hypokalemia Hypokalemia tamoxifen 20 mg oral tablet (20 sources) Estrogen Agonist/Antagonis t Start: 5 End: 5 take 1 tablet by mouth once daily Tamoxifen 20 mg tablet Discontinued 20 mg PO daily 90 3 April 14, 2025 5:56am June 19, 2025 3:16pm Malignant neoplasm of right breast Estrogen receptor positive tumor status Malignant neoplasm of upper-outer quadrant of right female breast Estrogen receptor positive status [ER+] Problems Active Problems Problem Classification Problem Date Documented Da te Episodic/Chronic Acute bronchitis (2 sources) Acute bronchitis, unspecified; Translations: [Acute bronchitis] Onset: 3 11-17-2023 Episodic Administrative/social admission (2 sources) Referral statuses; Translations: [Persons encountering health services in other specified circumstances] Onset: 5 Episodic Cancer of breast (20 sources) Malignant neoplasm of female breast; Translations: [Malignant neoplasm of breast (female), unspecified] Onset: 1 Chronic Comment on above: June 22, 2021[facility] have [facility] Her2 dual AMAIRANI was negative, nonamplifiedI would anticipate proceeding with definitive surgery pending hematology oncology consultationArun Sebastian M.D., F.A.C.S.Recommendations had been made by Dr. Arturo Olivas for genetic testing preoperatively. If abnormal then bilateral mastectomy would be recommended. He states that the patient was not interested in pursuing this and having a delay in surgery. Please refer to his more complete consultation.Arun Sebastian M.D., F.A.C.S. 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 09-12-2024 Chronic Disorders of lipid metabolism (2 sources) Hyperlipidemia, unspecified; Translations: [Hyperlipidemia, unspecified] Onset: 5 Chronic Esophageal disorders (15 sources) Gastroesophageal reflux disease; Translations: [Gastro-esophageal reflux disease without esophagitis] Onset: 4 09-19-2024 Chronic Essential hypertension (1 source) Essential (primary) hypertension; Translations: [Essential (primary) hypertension] Onset: 5 Chronic Fracture of lower limb (1 source) Unspecified fracture of unspecified lower leg, initial encounter for closed fracture; Translations: [Unspecified fracture of unspecified lower leg, initial encounter for closed fracture] Onset: 5 Episodic Headache; including migraine (1 source) Headache; including migraine; Translations: [Headache, unspecified] Onset: 3 Maintenance chemotherapy; radiotherapy (20 sources) H/O: malignant neoplasm; Translations: [Encounter for antineoplastic immunotherapy] Onset: 5 12-17-2024 Chronic Nonmalignant breast conditions (11 sources) Breast lump; Translations: [Lump or mass in breast] Episodic Other aftercare (1 source) Encounter for therapeutic drug level monitoring; Translations: [Encounter for therapeutic drug level monitoring] Onset: 5 Episodic Other and unspecified benign neoplasm (16 sources) Benign neoplasm of left lung; Translations: [Benign neoplasm of left bronchus and lung] 11-08-2021 Episodic Other and unspecified benign neoplasm (5 sources) Benign neoplasm of left bronchus and lung; Translations: [Benign neoplasm of bronchus and lung] Episodic Other diseases of veins and lymphatics (13 sources) Lymphedema of right upper limb; Translations: [Lymphedema, not elsewhere classified] 10-03-2024 Chronic Other diseases of veins and lymphatics (1 source) Lymphedema, not elsewhere classified; Translations: [Lymphedema, not elsewhere classified] Onset: 4 Chronic Other eye disorders (1 source) Swelling of eyelid; Translations: [Edema of right upper eyelid] 05-16-2025 Episodic Other lower respiratory disease (16 sources) Imaging of lung abnormal ; Translations: [Other nonspecific abnormal finding of lung field] 08-12-2021 Episodic Other lower respiratory disease (1 source) Lung mass; Translations: [Other nonspecific abnormal finding of lung field] Episodic Other lower respiratory disease (1 source) Cough; Translations: [Acute cough] 11-27-2023 Episodic Other lower respiratory disease (1 source) Dyspnea, unspecified; Translations: [Dyspnea, unspecified] Onset: 5 Episodic Other non-traumatic joint disorders (9 sources) Arthralgia of the ankle and/or foot; Translations: [Pain in right ankle and joints of right foot] Onset: 5 05-16-2025 Episodic Other non-traumatic joint disorders (1 source) Pain in right ankle and joints of right foot; Translations: [Pain in right ankle and joints of right foot] Onset: 5 Episodic Other screening for suspected conditions (not mental disorders or infectious disease) (20 sources) Patient encounter status; Translations: [Breast screening, unspecified] Onset: 1 Resolved: 2 10-09-2021 Episodic Other upper respiratory disease (1 source) Nasal congestion; Translations: [Nasal congestion] Onset: 3 Episodic Other upper respiratory infections (4 sources) Acute sinusitis; Translations: [Acute sinusitis, unspecified] Onset: 5 11-17-2023 Episodic Peripheral and visceral atherosclerosis (1 source) Chronic total occlusion of artery of the extremities; Translations: [Chronic total occlusion of artery of the extremities] Onset: 5 Chronic Phlebitis; thrombophlebitis and thromboembolism (19 sources) Deep venous thrombosis; Translations: [Acute embolism and thrombosis of unspecified deep veins of unspecified lower extremity] Onset: 5 06-19-2025 Episodic Comment on above: While on tamoxifen a nd limited activity due to fracture right fibula May 2025 Pulmonary heart disease (10 sources) Pulmonary embolism; Translations: [Other pulmonary embolism without acute cor pulmonale] Onset: 5 07-10-2025 Episodic Comment on above: While on tamoxifen a nd limited activity due to fracture right fibula May 2025 Residual codes; unclassified (20 sources) Estrogen receptor positive tumor; Translations: [Estrogen receptor positive status [ER+]] 07-29-2021 Episodic Residual codes; unclassified (1 source) Family history of breast cancer; Translations: [Family history of malignant neoplasm of breast] Episodic Residual codes; unclassified (2 sources) Estrogen receptor positive status [ER+]; Translations: [Estrogen receptor positive status [ER+]] Onset: 5 Episodic Thyroid disorders (20 sources) Non-toxic multinodular goiter; Translations: [Nontoxic multinodular goiter] Onset: 3 04-28-2023 Chronic Unclassified (5 sources) Patient encounter status; Translations: [Medicare annual wellness visit, subsequent] 04-29-2025 Unclassified (2 sources) WRIST INJURY 09-27-2022 Comment on above: WRIST INJURY Unclassified (1 source) Strain of left wrist, initial encounter 09-27-2022 Unclassified (2 sources) BODY ACHES COUGH 02-28-2023 Comment on above: BODY ACHES COUGH Unclassified (2 sources) Cough, unspecified; Translations: [Cough, unspecified] Onset: 3 Unclassified (1 source) Contact with and (suspected) exposure to COVID-19; Translations: [Contact with and (suspected) exposure to COVID-19] Onset: 2 Unclassified (1 source) C50.212 - Malignant neoplasm of upper-inner quadrant of left female breast,Z17.0 - Estrogen receptor positive status [ER+],C50.411 - Malignant neoplasm of upper-outer quadrant of right female breast Unclassified (1 source) C50.411 - Malignant neoplasm of upper-outer quadrant of right female breast,Z17.0 - Estrogen receptor positive status [ER+],I89.0 - Lymphedema, not elsewhere classified Unclassified (2 sources) C50.411 - Malignant neoplasm of upper-outer quadrant of right female breast,Z17.0 - Estrogen receptor positive status [ER+],C50.919 - Malignant neoplasm of unspecified site of unspecified female breast,Z17.31 - 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 Unclassified (2 sources) Eye Pain; Translations: [Eye Pain] Onset: Unclassified (1 source) C50.411 - Malignant neoplasm of upper-outer quadrant of right female breast,Z17.0 - Estrogen receptor positive status [ER+] Unclassified (1 source) Z76.89 - Persons encountering health services in other specified circumstances Unclassified (2 sources) 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; Translations: [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] Onset: Past or Other Problems Problem Classification Problem Date Documented Date Episodic/Chronic Cancer of breast (16 sources) History of malignant neoplasm of breast; Translations: [Personal history of malignant neoplasm of breast] Onset: 10-07-2021 Episodic Cardiac dysrhythmias (20 sources) Palpitations; Translations: [Palpitations] Onset: 04-28-2023 04-28-2023 Episodic E Codes: Fall (1 source) Fall on same level from slipping, tripping and stumbling without subsequent striking against object, initial encounter; Translations: [Fall same lev from slip/trip w/o strike against object, init] Onset: 09-27-2022 Episodic Fluid and electrolyte disorders (16 sources) Hypokalemia; Translations: [Hypokalemia] Onset: 10-17-2024 10-17-2024 Episodic Mood disorders (3 sources) Mood disorders Onset: 10-19-2021 Resolved: 10-18-2022 10-19-2021 Neoplasms of unspecified nature or uncertain behavior (20 sources) Neoplastic disease of uncertain behavior; Translations: [Neoplasm of unspecified behavior of bone, soft tissue, and skin] Onset: 09-07-2021 Resolved: 10-08-2021 10-09-2021 Episodic Nonmalignant breast conditions (20 sources) Fibroadenosis of breast; Translations: [Fibroadenosis of breast] Onset: 04-28-2023 Resolved: 04-28-2023 04-28-2023 Chronic Other aftercare (1 source) senior living (current) use of aromatase inhibitors; 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] Onset: 09-27-2022 Episodic Other aftercare (1 source) Other penitentiary (current) drug therapy; Translations: [Other intermediate designer (current) drug therapy] Onset: 01-09-2025 Episodic Other and unspecified benign neoplasm (2 sources) Personal history of colonic polyps; Translations: [Personal history of colonic polyps] Onset: 06-01-2022 Episodic Other and unspecified benign neoplasm (1 source) Polyp of colon; Translations: [Polyp of colon] Onset: 06-01-2022 Episodic Other connective tissue disease (17 sources) Hand pain; Translations: [Pain in limb] Resolved: 04-27-2022 Episodic Other connective tissue disease (1 source) Other specified soft tissue disorders; Translations: [Other specified soft tissue disorders] Onset: 09-27-2022 Episodic Other injuries and conditions due to external causes (1 source) Unspecified injury of left wrist, hand and finger(s), initial encounter; Translations: [Unsp injury of left wrist, hand and finger(s), init encntr] Onset: 09-27-2022 Episodic Other nervous system disorders (14 sources) Acute postoperative pain; Translations: [Other acute postprocedural pain] Onset: 10-07-2021 Resolved: 04-28-2023 10-09-2021 Episodic Other non-traumatic joint disorders (1 source) Pain in left wrist; Translations: [Pain in left wrist] Onset: 09-27-2022 Episodic Other skin disorders (3 sources) Mass of thoracic structure; Translations: [Localized swelling, mass and lump, trunk] Onset: 10-08-2021 Resolved: 10-08-2021 10-08-2021 Episodic Residual codes; unclassified (3 sources) At moderate risk of venous thromboembolism; Translations: [Other specified personal risk factors, not elsewhere classified] Onset: 12-09-2021 12-11-2021 Episodic Residual codes; unclassified (4 sources) H/O: breast problem; Translations: [Personal history of other specified diseases] Resolved: 04-27-2022 Episodic Residual codes; unclassified (3 sources) Family history of malignant neoplasm of digestive organs; Translations: [Family history of malignant neoplasm of digestive organs] Onset: 06-01-2022 Episodic Sprains and strains (2 sources) Injury of wrist; Translations: [Sprain of wrist, unspecified site] Onset: 09-27-2022 09-27-2022 Episodic Unclassified (13 sources) Onset: 10-18-2022 Resolved: 05-16-2025 10-18-2022 Results Test Name Value Interpretation Reference Range Facility Oncology Visit Reporton 07-31 Oncology Visit Report Normal [facility] XR ANKLE RIGHT 3+ VIEWSon XR ANKLE RIGHT 3+ VIEWS Interpreted By: Cate Lucas, STUDY: Right ankle, 3 views. INDICATION: Signs/Symptoms:RT ANKLE PAIN. COMPARISON: XR ANKLE RIGHT 3+ VIEWS 07/11/2025 ACCESSION NUMBER(S): [id number] ORDERING CLINICIAN: HAVEN ZAVALA FINDINGS: Healing nondisplaced De Leon B distal fibular fracture with increase in amount of bridging callus. No new fracture. Pes planus. The ankle mortise is normally aligned. No significant degenerative changes. Plantar calcaneal spur. Lower leg soft tissue edema. IMPRESSION: 1. Healing nondisplaced De Leon B distal fibular fracture 2. Pes planus. MACRO: None. Signed by: Cate Lucas 08/08/2025 8:57 PM Dictation workstation: [id number] [facility] Comment on above: Order Comment: STAND ING IF TOLERATED XR Ankle - right 3 Viewson 1 1. Healing nondispla sarah De Leon B distal fibular fracture 2. Pes planus. MACRO: None. Signed by: Cate Lucas 08/08/2025 8:57 PM Dictation workstation: [id number] [facility] Interpreted By: Cate Moran, STUDY: Right ankle, 3 views. INDICATION: Signs/Symptoms:RT ANKLE PAIN. COMPARISON: XR ANKLE RIGHT 3+ VIEWS 07/11/2025 ACCESSION NUMBER(S): [id number] ORDERING CLINICIAN: HAVEN ZAVALA FINDINGS: Healing nondisplaced De Leon B distal fibular fracture with increase in amount of bridging callus. No new fracture. Pes planus. The ankle mortise is normally aligned. No significant degenerative changes. Plantar calcaneal spur. Lower leg soft tissue edema. MMODAL Cate Lucas MD - 08/08/2025 Interpreted By: Cate Lucas, STUDY: Right ankle, 3 views. INDICATION: Signs/Symptoms:RT ANKLE PAIN. COMPARISON: XR ANKLE RIGHT 3+ VIEWS 07/11/2025 ACCESSION NUMBER(S): [id number] ORDERING CLINICIAN: HAVEN ZAVALA FINDINGS: Healing nondisplaced De Leon B distal fibular fracture with increase in amount of bridging callus. No new fracture. Pes planus. The ankle mortise is normally aligned. No significant degenerative changes. Plantar calcaneal spur. Lower leg soft tissue edema. IMPRESSION: 1. Healing nondisplaced De Leon B distal fibular fracture 2. Pes planus. MACRO: None. Signed by: Cate Lucas 08/08/2025 8:57 PM Dictation workstation: [id number] [facility] Work Phone: Radiology Study observation (narrative) [facility] Work Phone: XR Ankle - right 3 ViewsOrde red By: Cate Lucas on 08-08-2025 [facility] Work Phone: Limited echocardiogram repor tOrdered By: Sridhar Fay on 08-04-2025 Study report [facility] [address] [place] [address] ONC Echo, Limited Study 08/04/25 1254 MR#: [id number] Acct: [id number] Name: REBA BECKFORD Rep #:[id number] : 1950 74 From: Sridhar Carroll Attending Dr: Dr. Arturo Olivas MD Status: REG CLI Ordering Dr: Arturo Olivas MD Date: 08/04/25 Location: [facility] Sex: F C Admitted: Reason For Study Reason For Study: Chemotherapy Procedure This was a limited 2D transthoracic echocardiogram. Myocardial strain analysis was performed in this exam to aid in the assessment of cardiac function. Exam performed in department. Left Ventricle Normal left ventricle. The global longitudinal strain = -17.0 % (normal). The left ventricular ejection fraction is 55 %. No regional wall motion abnormalities noted. Right Ventricle Normal RV size. Normal systolic function. Tricuspid Valve Normal tricuspid valve. Mild (1+) tricuspid valve insufficiency. Pulmonary artery systolic pressure is 30 mmHg. Great Vessels Normal aortic root. Pericardium/Pleural No pericardial effusion. MMode/2D Measurements & Calculations LVIDd: 5.0 cm IVSd: 1.1 cm LVIDs: 3.6 cm LVPWd: 0.87 cm LVAd ap4: 24.2 cm2 FS: 28.8 % LVLd ap4: 7.3 cm EDV(MOD-sp4): 66.1 ml EDV(sp4-el): 67.8 ml LVAs ap4: 14.7 cm2 LVLs ap4: 5.9 cm ESV(MOD-sp4): 33.1 ml ESV(sp4-el): 31.4 ml EF(MOD-sp4): 50.0 % EF(sp4-el): 53.8 % SV(MOD-sp4): 33.0 ml SV(sp4-el): 36.5 ml SI(MOD-sp4): 16.9 ml/m2 Doppler Measurements & Calculations TR max sabrina: 253.2 cm/sec TR max P.8 mmHg ECHO/ONC Echo, Limited Study Interpretation Summary Normal left ventricle. The global longitudinal strain = -17.0 % (normal). The left ventricular ejection fraction is 55 %. Pulmonary artery systolic pressure is 30 mmHg. Ordering Physician: Arturo Olivas Referring Physician: Arturo Olivas Performed By: Alber Moreno, WAGNER 08/04/254 Date _ Sridhar Fay MD CC: Dr. Arturo Olivas MD; Dr. 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 [facility] Work Phone: ONC Echo, Limited Studyon ONC Echo, Limited Study Normal [facility] Absolute lymphocyte countOrd ered By: Arturo Olivas on 07-31-2025 Lymphocytes Auto (Unsp spec) [#/Vol] 0.89 10*3/uL 0.83-4.51 [facility] Absolute neutrophil countOrd ered By: Arturo Olivas on 07-31-2025 Neutrophils (Bld) [#/Vol] 2.5 10*3/uL 2.0-7.7 [facility] Anion gap in Serum or Plasma Ordered By: Arturo Olivas on 07-31-2025 Anion gap [Moles/Vol] 9 mmol/L 5-15 [facility] Automated lymphocyte count a s percentage of total leukocytesOrdered By: Arturo Olivas on 07-31-2025 Lymphocytes/100 WBC Auto (Unsp spec) 22.9 % 19-41 [facility] BUN/creatinine ratioOrdered By: Arturo Olivas on 07-31-2025 Urea nitrogen/Creatinine [Mass ratio] 23.7 mg/mg High 10-20 [facility] Basophil percentageOrdered B y: Arturo Olivas on 07-31-2025 Basophils/100 WBC (Bld) 1.3 % High 0-1 [facility] Bilirubin, totalOrdered By: Arturo Olivas on 07-31-2025 Bilirubin [Mass/Vol] 0.43 mg/dL 0.00-1.30 [facility] CBC W/Diff, Automatedon 10 Absolute Lymph 0.89 X10 3/uL Normal 0.83-4.51 [facility] Comment on above: Performed By: #### L 100.0100, L500.4050 ####[facility] [address] [place], [address] Absolute Neut 2.5 X10 3/uL Normal 2.0-7.7 [facility] Comment on above: Performed By: #### L 100.0100, L500.4050 ####[facility] [address] [place], [address] Basophils/100 WBC (Bld) 1.3 % High 0-1 [facility] Comment on above: Performed By: #### L 100.0100, L500.4050 ####[facility] [address] [place], [address] Eosinophils/100 WBC (Bld) 2.1 % Normal 0-5 [facility] Comment on above: Performed By: #### L 100.0100, L500.4050 ####[facility] [address] [place], [address] Erythrocyte distribution width (RBC) [Ratio] 12.5 % Normal 11.6-14.6 [facility] Comment on above: Performed By: #### L 100.0100, L500.4050 ####[facility] [address] [place], [address] Hematocrit (Bld) [Volume fraction] 38.7 % Normal 37-47 [facility] Comment on above: Performed By: #### L 100.0100, L500.4050 ####[facility] [address] [place], [address] Hemoglobin (Bld) [Mass/Vol] 13.0 g/dL Normal 12.0-15.0 [facility] Comment on above: Performed By: #### L 100.0100, L500.4050 ####[facility] [address] [place], [address] IG% 0.500 Normal 0.0-0.9 [facility] Comment on above: Result Comment: IG% - Immature Granulocytes (promyelocytes, myelocytes andmetamyelocytes) > 1% indicates that a LEFT SHIFT is Present. Performed By: #### L 100.0100, L500.4050 ####[facility] [address] [place], [address] Lymphocytes/100 WBC (Bld) 22.9 % Normal 19-41 [facility] Comment on above: Performed By: #### L 100.0100, L500.4050 ####[facility] [address] [place], [address] MCH (RBC) [Entitic mass] 29.7 pg Normal 27.0-32.0 [facility] Comment on above: Performed By: #### L 100.0100, L500.4050 ####[facility] [address] [place], [address] MCHC (RBC) [Mass/Vol] 33.6 g/dL Normal 32-36 [facility] Comment on above: Performed By: #### L 100.0100, L500.4050 ####[facility] [address] [place], [address] MCV (RBC) [Entitic vol] 88.4 fL Normal 81-99 [facility] Comment on above: Performed By: #### L 100.0100, L500.4050 ####[facility] [address] [place], [address] Monocytes/100 WBC (Bld) 8.2 % Normal 0-10 [facility] Comment on above: Performed By: #### L 100.0100, L500.4050 ####[facility] [address] [place], [address] Neutrophils/100 WBC (Bld) 65.0 % Normal 47-70 [facility] Comment on above: Performed By: #### L 100.0100, L500.4050 ####[facility] [address] [place], [address] Nucleated RBC (Bld) [#/Vol] 0 10*3/uL Normal 0-5 [facility] Comment on above: Performed By: #### L 100.0100, L500.4050 ####[facility] [address] [place], [address] Platelet mean volume (Bld) [Entitic vol] 9.2 fL Normal 6.2-12.0 [facility] Comment on above: Performed By: #### L 100.0100, L500.4050 ####[facility] [address] [place], [address] Platelets (Bld) [#/Vol] 204 10*3/uL Normal 150-450 [facility] Comment on above: Performed By: #### L 100.0100, L500.4050 ####[facility] [address] [place], [address] RBC (Bld) [#/Vol] 4.38 10*6/uL Normal 4.2-5.4 [facility] Comment on above: Performed By: #### L 100.0100, L500.4050 ####[facility] [address] [place], [address] RDW SD 40.6 fl Normal 35.1-43.9 [facility] Comment on above: Performed By: #### L 100.0100, L500.4050 ####[facility] [address] [place], [address] WBC (Bld) [#/Vol] 3.9 10*3/uL Low 4.4-11.0 [facility] Comment on above: Performed By: #### L 100.0100, L500.4050 ####[facility] [address] [place], [address] Carbon dioxide, total [Moles /volume] in Central venous bloodOrdered By: Arturo Olivas on 07-31-2025 CO2 [Moles/Vol] 24.1 mmol/L 21.0-32.0 [facility] Chloride assayOrdered By: Tiny Olivas on 07-31-2025 Chloride [Moles/Vol] 107 mmol/L 98-108 [facility] Comprehensive Metabolic Prof ilon 07-31-2025 Albumin [Mass/Vol] 3.5 g/dL Normal 3.4-4.8 [facility] Comment on above: Performed By: #### L 100.0100, L500.4050 ####[facility] [address] [place], [address] Albumin/Globulin [Mass ratio] 1.2 {ratio} Normal 0.9-2.4 [facility] Comment on above: Performed By: #### L 100.0100, L500.4050 ####[facility] [address] [place], [address] ALK PHOS 61 U/L Normal 35-104 [facility] Comment on above: Performed By: #### L 100.0100, L500.4050 ####[facility] [address] [place], [address] ALT [Catalytic activity/Vol] 14 U/L Normal <=34 [facility] Comment on above: Performed By: #### L 100.0100, L500.4050 ####[facility] [address] [place], [address] AST [Catalytic activity/Vol] 23 U/L Normal <=31 [facility] Comment on above: Performed By: #### L 100.0100, L500.4050 ####[facility] [address] [place], [address] Bilirubin [Mass/Vol] 0.43 mg/dL Normal 0.00-1.30 [facility] Comment on above: Performed By: #### L 100.0100, L500.4050 ####[facility] [address] [place], [address] BUN/CRE 23.7 RATIO High 10-20 [facility] Comment on above: Performed By: #### L 100.0100, L500.4050 ####[facility] [address] [place], [address] Calcium [Mass/Vol] 8.8 mg/dL Normal 7.6-11.0 [facility] Comment on above: Performed By: #### L 100.0100, L500.4050 ####[facility] [address] [place], [address] Chloride [Moles/Vol] 107 mmol/L Normal 98-108 [facility] Comment on above: Performed By: #### L 100.0100, L500.4050 ####[facility] [address] [place], [address] CO2 [Moles/Vol] 24.1 mmol/L Normal 21.0-32.0 [facility] Comment on above: Performed By: #### L 100.0100, L500.4050 ####[facility] [address] [place], [address] Creatinine [Mass/Vol] 0.55 mg/dL Low 0.70-1.20 [facility] Comment on above: Performed By: #### L 100.0100, L500.4050 ####[facility] [address] [place], [address] ECRCL 70.90 ml/min Normal 50-250 [facility] Comment on above: Performed By: #### L 100.0100, L500.4050 ####[facility] [address] [place], [address] GAP 9 Normal 5-15 [facility] Comment on above: Performed By: #### L 100.0100, L500.4050 ####[facility] [address] [place], [address] GFR/1.73 sq M.predicted among non-blacks MDRD (S/P/Bld) [Vol rate/Area] 97 mL/min/{1.73_m2} Normal >60 [facility] Comment on above: Result Comment: mL/m in/1.73m2 CKD-EPI Creatinine Equation (2020) Performed By: #### L 100.0100, L500.4050 ####[facility] [address] [place], [address] Globulin (S) [Mass/Vol] 3.0 g/dL Normal 2.2-4.2 [facility] Comment on above: Performed By: #### L 100.0100, L500.4050 ####[facility] [address] [place], [address] Glucose [Mass/Vol] 93 mg/dL Normal 70-99 [facility] Comment on above: Performed By: #### L 100.0100, L500.4050 ####[facility] [address] [place], [address] Potassium [Moles/Vol] 4.2 mmol/L Normal 3.3-5.1 [facility] Comment on above: Performed By: #### L 100.0100, L500.4050 ####[facility] [address] [place], [address] Sodium [Moles/Vol] 140 mmol/L Normal 133-145 [facility] Comment on above: Performed By: #### L 100.0100, L500.4050 ####[facility] [address] [place], [address] T PROT 6.5 g/dL Normal 5.9-8.4 [facility] Comment on above: Performed By: #### L 100.0100, L500.4050 ####[facility] [address] [place], [address] Urea nitrogen [Mass/Vol] 13 mg/dL Normal 4-19 [facility] Comment on above: Performed By: #### L 100.0100, L500.4050 ####[facility] [address] [place], [address] Eosinophil percentageOrdered By: Arturo Olivas on 07-31-2025 Eosinophils/100 WBC (Bld) 2.1 % 0-5 [facility] Erythrocyte distribution wid th ratioOrdered By: [facility] Ol[facility] on 07-31-2025 Erythrocyte distribution width (RBC) [Ratio] 12.5 % 11.6-14.6 [facility] Erythrocyte distribution wid th standard deviationOrdered By: Arturo Olivas on 07-31-2025 Erythrocyte distribution width (RBC) [Ratio] 40.6 fl 35.1-43.9 [facility] Glomerular filtration rate ( GFR) estimation/1.73 sq m using serum, plasma, or whole bOrdered By: Arturo Olivas on 07-31-2025 GFR/1.73 sq M.predicted among non-blacks MDRD (S/P/Bld) [Vol rate/Area] 97 mL/min/{1.73_m2} >60 [facility] Comment on above: mL/min/1.73m2 CKD-EP I Creatinine Equation (2020) Hematocrit Auto (Bld) [Volum e fraction]Ordered By: Arturo Olivas on 07-31-2025 Hematocrit (Bld) [Volume fraction] 38.7 % 37-47 [facility] Hemoglobin measurementOrdere d By: Arturo Olivas on 07-31-2025 Hemoglobin (Bld) [Mass/Vol] 13.0 g/dL 12.0-15.0 [facility] Immature granulocytes/100 WB C Auto (Bld)Ordered By: Arturo Olivas on 07-31-2025 Immature granulocytes/100 WBC (Bld) 0.500 % 0.0-0.9 [facility] Comment on above: IG% - Immature Granu locytes (promyelocytes, myelocytes and metamyelocytes) > 1% indicates that a LEFT SHIFT is Present. Laboratory - Chemistry and C hemistry - challengeOrdered By: Arturo Olivas on 07-31-2025 AST [Catalytic activity/Vol] 23 U/L <32 [facility] MCV (mean corpuscular volume ) determinationOrdered By: Arturo Olivas on 07-31-2025 MCV (RBC) [Entitic vol] 88.4 fL 81-99 [facility] Mean corpuscular hemoglobin (MCH) determinationOrdered By: Arturo Olivas on 07-31-2025 MCH (RBC) [Entitic mass] 29.7 pg 27.0-32.0 [facility] Mean corpuscular hemoglobin concentration (MCHC) determinationOrdered By: Arturo Olivas on 07-31-2025 MCHC (RBC) [Mass/Vol] 33.6 g/dL 32-36 [facility] Mean platelet volume determi nationOrdered By: Arturo Olivas on 07-31-2025 Platelet mean volume (Bld) [Entitic vol] 9.2 fL 6.2-12.0 [facility] Monocyte percentageOrdered B y: Arturo Olivas on 07-31-2025 Monocytes/100 WBC (Bld) 8.2 % 0-10 [facility] Neutrophil percentageOrdered By: Arturo Olivas on 07-31-2025 Neutrophils/100 WBC (Bld) 65.0 % 47-70 [facility] Nucleated red blood cell per centageOrdered By: Arturo Olivas on 07-31-2025 Nucleated RBC/100 WBC (Bld) [Ratio] 0 % 0-5 [facility] Oncology Visit Reporton 100 Oncology Visit Report Normal [facility] Platelet countOrdered By: Tiny Olivas on 07-31-2025 Platelets (Bld) [#/Vol] 204 10*3/uL 150-450 [facility] Potassium measurement (mass/ volume)Ordered By: Arturo Olivas on 07-31-2025 Potassium (Unsp spec) [Mass/Vol] 4.2 mmol/L 3.3-5.1 [facility] RBC Auto (Bld) [#/Vol]Ordere d By: Arturo Olivas on 07-31-2025 RBC (Bld) [#/Vol] 4.38 10*6/uL 4.2-5.4 [facility] Serum creatinine measurement (mass/volume)Ordered By: Arturo Olivas on 07-31-2025 Creatinine [Mass/Vol] 0.55 mg/dL Low 0.70-1.20 [facility] Serum globulin measurementOr dered By: Arturo Olivas on 07-31-2025 Globulin (S) [Mass/Vol] 3.0 g/dL 2.2-4.2 [facility] Serum glucose measurement (m ass/volume)Ordered By: Arturo Olivas on 07-31-2025 Glucose [Mass/Vol] 93 mg/dL 70-99 [facility] Serum or plasma alanine denise otransferase (ALT) measurementOrdered By: Arturo Olivas on 07-31-2025 ALT [Catalytic activity/Vol] 14 U/L <35 [facility] Serum or plasma albumin salvador urement (mass/volume)Ordered By: Arturo Olivas on 07-31-2025 Albumin [Mass/Vol] 3.5 g/dL 3.4-4.8 [facility] Serum or plasma albumin/glob ulin mass ratioOrdered By: Arturo Olivas on 07-31-2025 Albumin/Globulin [Mass ratio] 1.2 {ratio} 0.9-2.4 [facility] Serum or plasma alkaline giuliano sphatase measurementOrdered By: Arturo Brendon on 07-31-2025 ALP [Catalytic activity/Vol] 61 U/L 35-104 [facility] Serum or plasma calcium salvador urement (mass/volume)Ordered By: Arturo Brendon on 07-31-2025 Calcium [Mass/Vol] 8.8 mg/dL 7.6-11.0 [facility] Serum or plasma urea nitroge n measurement (mass/volume)Ordered By: Arturo Brendon on 07-31-2025 Urea nitrogen [Mass/Vol] 13 mg/dL 4-19 [facility] Sodium levelOrdered By: Mo moses Brendon on 07-31-2025 Sodium [Moles/Vol] 140 mmol/L 133-145 [facility] Total proteinOrdered By: Dalton ignacio Brendon on 07-31-2025 Protein [Mass/Vol] 6.5 g/dL 5.9-8.4 [facility] White blood cell (WBC) count Ordered By: Arturo Olivas on 07-31-2025 WBC (Bld) [#/Vol] 3.9 10*3/uL Low 4.4-11.0 [facility] XR ANKLE RIGHT 3+ VIEWSon XR ANKLE RIGHT 3+ VIEWS Interpreted By: Doe Wood, STUDY: XR ANKLE RIGHT 3+ VIEWS; 07/11/2025 9:12 am INDICATION: Signs/Symptoms:RT ANKLE PAIN. ,M25.571 Pain in right ankle and joints of right foot COMPARISON: 06/13/2025. ACCESSION NUMBER(S): [id number] ORDERING CLINICIAN: HAVEN ZAVALA TECHNIQUE: Right ankle series performed with 3 images. FINDINGS: There is stable alignment of a healing minimally displaced oblique fracture of the distal fibula with some increased callus formation. Ankle alignment including the mortise appears intact with no subluxation. Mild marginal spurring of the ankle as well as a small plantar calcaneal spur are similar to prior. Degenerative changes of the midfoot are partially visualized with potential partial osseous fusion in this region similar to prior. Small soft tissue dystrophic calcifications in the pretibial region are unchanged. IMPRESSION: Stable alignment of a healing minimally displaced distal fibular oblique fracture with increased callus. MACRO: None. Signed by: Doe Wood 07/15/2025 9:57 AM Dictation workstation: [id number] [facility] Comment on above: Order Comment: STAND ING IF TOLERATED Oncology Visit Reporton 06-30 Oncology Visit Report Normal [facility] Radiation Oncology Visiton 0 07-07-2025 Radiation Oncology Visit Normal [facility] Absolute lymphocyte countOrd ered By: [facility] on 06-19-2025 Lymphocytes Auto (Unsp spec) [#/Vol] 0.71 10*3/uL Low 0.83-4.51 [facility] Absolute neutrophil countOrd ered By: [facility] on 06-19-2025 Neutrophils (Bld) [#/Vol] 7.0 10*3/uL 2.0-7.7 [facility] Anion gap in Serum or Plasma Ordered By: Arturo Olivas on 06-19-2025 Anion gap [Moles/Vol] 10 mmol/L 5-15 [facility] Automated lymphocyte count a s percentage of total leukocytesOrdered By: Arturo Olivas on 06-19-2025 Lymphocytes/100 WBC Auto (Unsp spec) 8.3 % Low 19-41 [facility] BUN/creatinine ratioOrdered By: [facility] Brendon on 06-19-2025 Urea nitrogen/Creatinine [Mass ratio] 18.5 mg/mg 10-20 [facility] Basophil percentageOrdered B y: Arturo Olivas on 06-19-2025 Basophils/100 WBC (Bld) 0.7 % 0-1 [facility] Bilirubin, totalOrdered By: Arturo Olivas on 06-19-2025 Bilirubin [Mass/Vol] 0.44 mg/dL 0.00-1.30 [facility] CBC W/Diff, Automatedon 05-31 Absolute Lymph 0.71 X10 3/uL Low 0.83-4.51 [facility] Comment on above: Performed By: #### L 500.4050, L501.2300, L501.5200, L100.0100 ####[facility] [address] [place], [place], [id number] Absolute Neut 7.0 X10 3/uL Normal 2.0-7.7 [facility] Comment on above: Performed By: #### L 500.4050, L501.2300, L501.5200, L100.0100 ####[facility] [address] [place], [address] Basophils/100 WBC (Bld) 0.7 % Normal 0-1 [facility] Comment on above: Performed By: #### L 500.4050, L501.2300, L501.5200, L100.0100 ####[facility] [address] [place], [address] Eosinophils/100 WBC (Bld) 1.2 % Normal 0-5 [facility] Comment on above: Performed By: #### L 500.4050, L501.2300, L501.5200, L100.0100 ####[facility] [address] [place], [address] Erythrocyte distribution width (RBC) [Ratio] 12.3 % Normal 11.6-14.6 [facility] Comment on above: Performed By: #### L 500.4050, L501.2300, L501.5200, L100.0100 ####[facility] [address] [place], [address] Hematocrit (Bld) [Volume fraction] 35.8 % Low 37-47 [facility] Comment on above: Performed By: #### L 500.4050, L501.2300, L501.5200, L100.0100 ####[facility] [address] [place], [address] Hemoglobin (Bld) [Mass/Vol] 12.0 g/dL Normal 12.0-15.0 [facility] Comment on above: Performed By: #### L 500.4050, L501.2300, L501.5200, L100.0100 ####[facility] [address] [place], [address] IG% 0.900 Normal 0.0-0.9 [facility] Comment on above: Result Comment: IG% - Immature Granulocytes (promyelocytes, myelocytes andmetamyelocytes) > 1% indicates that a LEFT SHIFT is Present. Performed By: #### L 500.4050, L501.2300, L501.5200, L100.0100 ####[facility] [address] [place], [address] Lymphocytes/100 WBC (Bld) 8.3 % Low 19-41 [facility] Comment on above: Performed By: #### L 500.4050, L501.2300, L501.5200, L100.0100 ####[facility] [address] [place], [address] MCH (RBC) [Entitic mass] 30.2 pg Normal 27.0-32.0 [facility] Comment on above: Performed By: #### L 500.4050, L501.2300, L501.5200, L100.0100 ####[facility] [address] [place], [address] MCHC (RBC) [Mass/Vol] 33.5 g/dL Normal 32-36 [facility] Comment on above: Performed By: #### L 500.4050, L501.2300, L501.5200, L100.0100 ####[facility] [address] [place], [address] MCV (RBC) [Entitic vol] 90.2 fL Normal 81-99 [facility] Comment on above: Performed By: #### L 500.4050, L501.2300, L501.5200, L100.0100 ####[facility] [address] [place], [address] Monocytes/100 WBC (Bld) 7.4 % Normal 0-10 [facility] Comment on above: Performed By: #### L 500.4050, L501.2300, L501.5200, L100.0100 ####[facility] [address] [place], [address] Neutrophils/100 WBC (Bld) 81.5 % High 47-70 [facility] Comment on above: Performed By: #### L 500.4050, L501.2300, L501.5200, L100.0100 ####[facility] [address] [place], [address] Nucleated RBC (Bld) [#/Vol] 0 10*3/uL Normal 0-5 [facility] Comment on above: Performed By: #### L 500.4050, L501.2300, L501.5200, L100.0100 ####[facility] [address] [place], [address] Platelet mean volume (Bld) [Entitic vol] 9.0 fL Normal 6.2-12.0 [facility] Comment on above: Performed By: #### L 500.4050, L501.2300, L501.5200, L100.0100 ####[facility] [address] [place], [address] Platelets (Bld) [#/Vol] 245 10*3/uL Normal 150-450 [facility] Comment on above: Performed By: #### L 500.4050, L501.2300, L501.5200, L100.0100 ####[facility] [address] [place], [address] RBC (Bld) [#/Vol] 3.97 10*6/uL Low 4.2-5.4 [facility] Comment on above: Performed By: #### L 500.4050, L501.2300, L501.5200, L100.0100 ####[facility] [address] [place], [address] RDW SD 40.4 fl Normal 35.1-43.9 [facility] Comment on above: Performed By: #### L 500.4050, L501.2300, L501.5200, L100.0100 ####[facility] [address] [place], [address] WBC (Bld) [#/Vol] 8.6 10*3/uL Normal 4.4-11.0 [facility] Comment on above: Performed By: #### L 500.4050, L501.2300, L501.5200, L100.0100 ####[facility] [address] [place], [address] CTA Chest W/WO Contraston CTA Chest W/WO Contrast Normal [facility] Carbon dioxide, total [Moles /volume] in Central venous bloodOrdered By: Arturo Olivas on 06-19-2025 CO2 [Moles/Vol] 25.2 mmol/L 21.0-32.0 [facility] Chloride assayOrdered By: Tiny Olivas on 06-19-2025 Chloride [Moles/Vol] 105 mmol/L 98-108 [facility] Comprehensive Metabolic Prof ilon 06-19-2025 Albumin [Mass/Vol] 3.3 g/dL Low 3.4-4.8 [facility] Comment on above: Performed By: #### L 500.4050, L501.2300, L501.5200, L100.0100 ####[facility] [address] [place], [address] Albumin/Globulin [Mass ratio] 1.0 {ratio} Normal 0.9-2.4 [facility] Comment on above: Performed By: #### L 500.4050, L501.2300, L501.5200, L100.0100 ####[facility] [address] [place], [address] ALK PHOS 59 U/L Normal 35-104 [facility] Comment on above: Performed By: #### L 500.4050, L501.2300, L501.5200, L100.0100 ####[facility] [address] [place], [address] ALT [Catalytic activity/Vol] 44 U/L High <=34 [facility] Comment on above: Performed By: #### L 500.4050, L501.2300, L501.5200, L100.0100 ####[facility] [address] [place], [address] AST [Catalytic activity/Vol] 38 U/L High <=31 [facility] Comment on above: Performed By: #### L 500.4050, L501.2300, L501.5200, L100.0100 ####[facility] [address] [place], [address] Bilirubin [Mass/Vol] 0.44 mg/dL Normal 0.00-1.30 [facility] Comment on above: Performed By: #### L 500.4050, L501.2300, L501.5200, L100.0100 ####[facility] [address] [place], [address] BUN/CRE 18.5 RATIO Normal 10-20 [facility] Comment on above: Performed By: #### L 500.4050, L501.2300, L501.5200, L100.0100 ####[facility] [address] [place], [address] Calcium [Mass/Vol] 8.8 mg/dL Normal 7.6-11.0 [facility] Comment on above: Performed By: #### L 500.4050, L501.2300, L501.5200, L100.0100 ####[facility] [address] [place], [address] Chloride [Moles/Vol] 105 mmol/L Normal 98-108 [facility] Comment on above: Performed By: #### L 500.4050, L501.2300, L501.5200, L100.0100 ####[facility] [address] [place], [address] CO2 [Moles/Vol] 25.2 mmol/L Normal 21.0-32.0 [facility] Comment on above: Performed By: #### L 500.4050, L501.2300, L501.5200, L100.0100 ####[facility] [address] [place], [address] Creatinine [Mass/Vol] 0.64 mg/dL Low 0.70-1.20 [facility] Comment on above: Performed By: #### L 500.4050, L501.2300, L501.5200, L100.0100 ####[facility] [address] [place], [address] ECRCL 71.47 ml/min Normal 50-250 [facility] Comment on above: Performed By: #### L 500.4050, L501.2300, L501.5200, L100.0100 ####[facility] [address] [place], [address] GAP 10 Normal 5-15 [facility] Comment on above: Performed By: #### L 500.4050, L501.2300, L501.5200, L100.0100 ####[facility] [address] [place], [address] GFR/1.73 sq M.predicted among non-blacks MDRD (S/P/Bld) [Vol rate/Area] 94 mL/min/{1.73_m2} Normal >60 [facility] Comment on above: Result Comment: mL/m in/1.73m2 CKD-EPI Creatinine Equation (2020) Performed By: #### L 500.4050, L501.2300, L501.5200, L100.0100 ####[facility] [address] [place], [address] Globulin (S) [Mass/Vol] 3.3 g/dL Normal 2.2-4.2 [facility] Comment on above: Performed By: #### L 500.4050, L501.2300, L501.5200, L100.0100 ####[facility] [address] [place], [address] Glucose [Mass/Vol] 109 mg/dL High 70-99 [facility] Comment on above: Performed By: #### L 500.4050, L501.2300, L501.5200, L100.0100 ####[facility] [address] [place], [address] Potassium [Moles/Vol] 4.0 mmol/L Normal 3.3-5.1 [facility] Comment on above: Performed By: #### L 500.4050, L501.2300, L501.5200, L100.0100 ####[facility] [address] [place], [address] Sodium [Moles/Vol] 140 mmol/L Normal 133-145 [facility] Comment on above: Performed By: #### L 500.4050, L501.2300, L501.5200, L100.0100 ####[facility] [address] [place], [address] T PROT 6.7 g/dL Normal 5.9-8.4 [facility] Comment on above: Performed By: #### L 500.4050, L501.2300, L501.5200, L100.0100 ####[facility] [address] [place], [address] Urea nitrogen [Mass/Vol] 12 mg/dL Normal 4-19 [facility] Comment on above: Performed By: #### L 500.4050, L501.2300, L501.5200, L100.0100 ####[facility] [address] [place], [address] Eosinophil percentageOrdered By: [facility] Ol[facility] on 06-19-2025 Eosinophils/100 WBC (Bld) 1.2 % 0-5 [facility] Erythrocyte distribution wid th ratioOrdered By: [facility] Brendon on 06-19-2025 Erythrocyte distribution width (RBC) [Ratio] 12.3 % 11.6-14.6 [facility] Erythrocyte distribution wid th standard deviationOrdered By: [facility] Brendon on 06-19-2025 Erythrocyte distribution width (RBC) [Ratio] 40.4 fl 35.1-43.9 [facility] Glomerular filtration rate ( GFR) estimation/1.73 sq m using serum, plasma, or whole bOrdered By: [facility] Ol[facility] on 06-19-2025 GFR/1.73 sq M.predicted among non-blacks MDRD (S/P/Bld) [Vol rate/Area] 94 mL/min/{1.73_m2} >60 [facility] Comment on above: mL/min/1.73m2 CKD-EP I Creatinine Equation (2020) Hematocrit Auto (Bld) [Volum e fraction]Ordered By: [facility] on 06-19-2025 Hematocrit (Bld) [Volume fraction] 35.8 % Low 37-47 [facility] Hemoglobin measurementOrdere d By: [facility] Ol[facility] on 06-19-2025 Hemoglobin (Bld) [Mass/Vol] 12.0 g/dL 12.0-15.0 [facility] Immature granulocytes/100 WB C Auto (Bld)Ordered By: [facility] on 06-19-2025 Immature granulocytes/100 WBC (Bld) 0.900 % 0.0-0.9 [facility] Comment on above: IG% - Immature Granu locytes (promyelocytes, myelocytes and metamyelocytes) > 1% indicates that a LEFT SHIFT is Present. Laboratory - Chemistry and C hemistry - challengeOrdered By: Arturo Olivas on 06-19-2025 AST [Catalytic activity/Vol] 38 U/L High <32 [facility] MCV (mean corpuscular volume ) determinationOrdered By: Arturo Olivas on 06-19-2025 MCV (RBC) [Entitic vol] 90.2 fL 81-99 [facility] Magnesiumon 06-19-2025 Magnesium [Mass/Vol] 2.3 mg/dL High 1.5-2.2 [facility] Comment on above: Performed By: #### L 500.4050, L501.2300, L501.5200, L100.0100 ####[facility] [address] [place], [address] Magnesium measurement (mass/ volume)Ordered By: Arturo Olivas on 06-19-2025 Magnesium (Unsp spec) [Mass/Vol] 2.3 mg/dL High 1.5-2.2 [facility] Mean corpuscular hemoglobin (MCH) determinationOrdered By: [facility] on 06-19-2025 MCH (RBC) [Entitic mass] 30.2 pg 27.0-32.0 [facility] Mean corpuscular hemoglobin concentration (MCHC) determinationOrdered By: Arturo Olivas on 06-19-2025 MCHC (RBC) [Mass/Vol] 33.5 g/dL 32-36 [facility] Mean platelet volume determi nationOrdered By: Arturo Olivas on 06-19-2025 Platelet mean volume (Bld) [Entitic vol] 9.0 fL 6.2-12.0 [facility] Monocyte percentageOrdered B y: Arturo Olivas on 06-19-2025 Monocytes/100 WBC (Bld) 7.4 % 0-10 [facility] Neutrophil percentageOrdered By: [facility] on 06-19-2025 Neutrophils/100 WBC (Bld) 81.5 % High 47-70 [facility] Nucleated red blood cell per centageOrdered By: [facility] on 06-19-2025 Nucleated RBC/100 WBC (Bld) [Ratio] 0 % 0-5 [facility] Oncology Visit Reporton 05-31 Oncology Visit Report Normal [facility] Phosphoruson 06-19-2025 Phosphate [Mass/Vol] 3.2 mg/dL Normal 2.7-4.5 [facility] Comment on above: Performed By: #### L 500.4050, L501.2300, L501.5200, L100.0100 ####[facility] [address] [place], [address] Platelet countOrdered By: Tiny Olivas on 06-19-2025 Platelets (Bld) [#/Vol] 245 10*3/uL 150-450 [facility] Potassium measurement (mass/ volume)Ordered By: Arturo Olivas on 06-19-2025 Potassium (Unsp spec) [Mass/Vol] 4.0 mmol/L 3.3-5.1 [facility] RBC Auto (Bld) [#/Vol]Ordere d By: Arturo Olivas on 06-19-2025 RBC (Bld) [#/Vol] 3.97 10*6/uL Low 4.2-5.4 [facility] Serum creatinine measurement (mass/volume)Ordered By: Arturo Olivas on 06-19-2025 Creatinine [Mass/Vol] 0.64 mg/dL Low 0.70-1.20 [facility] Serum globulin measurementOr dered By: Arturo Olivas on 06-19-2025 Globulin (S) [Mass/Vol] 3.3 g/dL 2.2-4.2 [facility] Serum glucose measurement (m ass/volume)Ordered By: Arturo Olivas on 06-19-2025 Glucose [Mass/Vol] 109 mg/dL High 70-99 [facility] Serum or plasma alanine denise otransferase (ALT) measurementOrdered By: Arturo Oilvas on 06-19-2025 ALT [Catalytic activity/Vol] 44 U/L High <35 [facility] Serum or plasma albumin salvador urement (mass/volume)Ordered By: Arturo Olivas on 06-19-2025 Albumin [Mass/Vol] 3.3 g/dL Low 3.4-4.8 [facility] Serum or plasma albumin/glob ulin mass ratioOrdered By: Arturo Olivas on 06-19-2025 Albumin/Globulin [Mass ratio] 1.0 {ratio} 0.9-2.4 [facility] Serum or plasma alkaline giuliano sphatase measurementOrdered By: Mojosué Olivas on 06-19-2025 ALP [Catalytic activity/Vol] 59 U/L 35-104 [facility] Serum or plasma calcium salvador urement (mass/volume)Ordered By: Arturo Olivas on 06-19-2025 Calcium [Mass/Vol] 8.8 mg/dL 7.6-11.0 [facility] Serum or plasma urea nitroge n measurement (mass/volume)Ordered By: Arturo Olivas on 06-19-2025 Urea nitrogen [Mass/Vol] 12 mg/dL 4-19 [facility] Sodium levelOrdered By: Mo Olivas on 06-19-2025 Sodium [Moles/Vol] 140 mmol/L 133-145 [facility] Total proteinOrdered By: Dalton Olivas on 06-19-2025 Protein [Mass/Vol] 6.7 g/dL 5.9-8.4 [facility] Venous Duplex US, Unilateral on 06-19-2025 Venous Duplex US, Unilateral Normal [facility] Venous duplex ultrasound rep ortOrdered By: Michoacano Dewey on 06-19-2025 US Vein [facility] [address] [place] [address] Venous Duplex US, Unilateral 06/19/25 1427 MR#: [id number] Acct: [id number] Name: REBA BECKFORD Rep #:[id number] : [id number] 74 From: Michoacano Dewey MD Attending Dr: Dr. Arturo Olivas MD Status: REG CLI Ordering Dr: Arturo Olivas MD Date: 06/19/25 Location: CT Sex: F C Admitted: Reason For Study Reason For Study: Swelling RIGHT LEFT GSV is normal. CFV is patentand compressible. Acute deep vein thrombosis is noted in the CFV, FV, Pop V, T/P Trunk, Gastroc V, PTV, and Anisha V. They are dilated and NONCOMPRESSIBLE. Procedure This is a venous duplex using B-mode, color flow and spectral Doppler. Exam performed in department. A preliminary report was called and/or faxed to SHILO Wallace. VL/Venous Duplex US, Unilateral Interpretation Summary Acute deep vein thrombosis is noted in the right common femoral vein. Acute deepvein thrombosis is noted in the right femoral vein. Acute deep vein thrombosis is noted in the right popliteal vein. Acute deep vein thrombosis is noted in the right tibio-peroneal trunk. Acute deep vein thrombosis is noted in the rightposterior tibial vein. Acute deep vein thrombosis is noted in the right peroneal vein. Acute deep vein thrombosis is noted in the right gastrocnemius vein. The right great saphenous vein appears patent and compressible segmentally. The leftcommon femoral vein is patent and compressible . Ordering Physician: Arturo Olivas Referring Physician: Kristina Mcginnis MD Performed By: Lizbeth Thomason, RVT 06/19/252131 Date _ Michoacano Dewey MD CC: Dr. Arturo Olivas MD; Dr. 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 [facility] Other Phone: White blood cell (WBC) count Ordered By: Arturo Olivas on 06-19-2025 WBC (Bld) [#/Vol] 8.6 10*3/uL 4.4-11.0 [facility] POCT SARS-COV-2/FLU/RSV PCR SYMPTOMATIC manually resultedOrdered By: Tabatha Daly on 06-14-2025 FLUAV RNA BRII+probe Ql (Resp) Not detected Not Detected [facility] FLUBV RNA BRII+probe Ql (Resp) Not detected Not Detected [facility] RSV RNA BRII+probe Ql (Resp) Not detected Not Detected [facility] SARS-CoV-2 (COVID-19) RNA BRII+probe Ql (Resp) Not detected Not Detected [facility] Bilat Brst Joe Stand Aloneo n 06-13-2025 Bilat Brst Joe Stand Alone Normal [facility] Breast imaging reportOrdered By: Kaila Bazzi on 06-13-2025 Study report [facility] [address] [place] [address] DIAG MAMM W/CAD, BILAT MR#: [id number] Acct: [id number] Name: REBA BECKFORD Rep #: [id number] : 1950 F 74 From: Betzy Bazzi MD PCP: Dr. Kristina Mcginnis MD Status: RE G CLI Study:DIAG MAMM W/CAD, BILAT Date of Exam: 06/13/25 Exam# [id number] Ordering Dr: Kan Ang DO EXAM: DIAG MAMM W/CAD, BILAT; BILAT BRST JOE STAND ALONE 06/13/2025 CLINICAL HISTORY: F, Age 74 y/o , FOLLOW UP TREATED BREAST CANCER, ANNUAL MAMMOGRAM TECHNIQUE: DIAG MAMM W/CAD, BILAT; BILAT BRST JOE STAND ALONE. COMPARISON: Prior exam(s) dated 07/11/2024, 06/12/2024, 06/19/2024, 06/07/2024. FINDINGS: TISSUE DENSITY: There are scattered areas of fibroglandular density. Bilateral Breast Mammographic Findings: There are new postsurgical changes in the upper-outer right breast at posterior depth, as well as in the right axilla. No significant masses, calcifications or other abnormalities are identified. BI/DIAG MAMM W/CAD, BILAT IMPRESSION: Postsurgical changes upper-outer right breast and right axilla are benign. There is no evidence of malignancy in either breast. OVERALL FINAL ASSESSMENT BI-RADS 2: BENIGN RECOMMENDATION: Routine annual follow-up in 1 Year A letter with findings and recommendations will be mailed to the patient. Reading Location: [facility] CC: Dr. Kristina Mcginnis MD; Dr. 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 Kristina Mcginnis MD Status: RE G CLI Study:Bilat Brst Joe Stand Alone Date of Exa m: 06/13/25 Exam# [id number] Ordering Dr: Kan Ang DO EXAM: DIAG MAMM W/CAD, BILAT; BILAT BRST JOE STAND ALONE 06/13/2025 CLINICAL HISTORY: F, Age 74 y/o , FOLLOW UP TREATED BREAST CANCER, ANNUAL MAMMOGRAM TECHNIQUE: DIAG MAMM W/CAD, BILAT; BILAT BRST JOE STAND ALONE. COMPARISON: Prior exam(s) dated 07/11/2024, 06/12/2024, 06/19/2024, 06/07/2024. FINDINGS: TISSUE DENSITY: There are scattered areas of fibroglandular density. Bilateral Breast Mammographic Findings: There are new postsurgical changes in the upper-outer right breast at posterior depth, as well as in the right axilla. No significant masses, calcifications or other abnormalities are identified. BI/Bilat Brst Joe Stand Alone IMPRESSION: Postsurgical changes upper-outer right breast and right axilla are benign. There is no evidence of malignancy in either breast. OVERALL FINAL ASSESSMENT BI-RADS 2: BENIGN RECOMMENDATION: Routine annual follow-up in 1 Year A letter with findings and recommendations will be mailed to the patient. Reading Location: [id number] CC: Dr. Kristina Mcginnis MD; Dr. 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 ,M25.571 Pain in right ankle and joints of right foot COMPARISON: 05/16/2025 ACCESSION NUMBER(S): [id number] ORDERING CLINICIAN: HAVEN ZAVALA FINDINGS: Subacute healing fracture through the distal fibula with mild displacement. There is increased sclerosis. There is no acute abnormality. The ankle mortise is maintained. No degenerative change seen IMPRESSION: Subacute healing fracture through the distal fibula without change in alignment MACRO: None Signed by: Dread Tadeo 06/14/2025 9:31 AM Dictation workstation: [id number] [facility] Comment on above: Order Comment: STAND ING IF TOLDERATED Oncology Visit Reporton 05-01 Oncology Visit Report Normal [facility] XR ANKLE RIGHT 3+ VIEWSon XR ANKLE RIGHT 3+ VIEWS Interpreted By: Martha Torres, STUDY: XR ANKLE RIGHT 3+ VIEWS INDICATION: Signs/Symptoms:RT ANKLE PAIN. COMPARISON: None ACCESSION NUMBER(S): [id number] ORDERING CLINICIAN: HAVEN ZAVALA FINDINGS: Nondisplaced oblique fracture right distal fibula at the mortise. Pes planus and moderate degenerative changes right foot and ankle. IMPRESSION: Nondisplaced oblique fracture right distal fibula at the mortise. Pes planus and moderate degenerative changes right foot and ankle. Signed by: Martha Torres 05/17/2025 7:57 AM Dictation workstation: [id number] [facility] Comment on above: Order Comment: STAND ING IF TOLERATED Absolute lymphocyte countOrd ered By: Arturo Olivas on 05-08-2025 Lymphocytes Auto (Unsp spec) [#/Vol] 0.92 10*3/uL 0.83-4.51 [facility] Absolute neutrophil countOrd ered By: Mojosué Olivas on 05-08-2025 Neutrophils (Bld) [#/Vol] 3.8 10*3/uL 2.0-7.7 [facility] Anion gap in Serum or Plasma Ordered By: Arturo Olivas on 05-08-2025 Anion gap [Moles/Vol] 9 mmol/L 5-15 [facility] Automated lymphocyte count a s percentage of total leukocytesOrdered By: Berger Hospitaljosué Olivas on 05-08-2025 Lymphocytes/100 WBC Auto (Unsp spec) 17.3 % Low 19-41 [facility] BUN/creatinine ratioOrdered By: [facility] Hospitaljosué Olivas on 05-08-2025 Urea nitrogen/Creatinine [Mass ratio] 26.8 mg/mg High 10-20 [facility] Basophil percentageOrdered B y: Arturo Olivas on 05-08-2025 Basophils/100 WBC (Bld) 1.1 % High 0-1 [facility] Bilirubin, totalOrdered By: Arturo Olivas on 05-08-2025 Bilirubin [Mass/Vol] 0.51 mg/dL 0.00-1.30 [facility] CBC W/Diff, Automatedon 04-29 Absolute Lymph 0.92 X10 3/uL Normal 0.83-4.51 [facility] Comment on above: Performed By: #### L 100.0100, L500.4050 ####[facility] [address] [place], [address] Absolute Neut 3.8 X10 3/uL Normal 2.0-7.7 [facility] Comment on above: Performed By: #### L 100.0100, L500.4050 ####[facility] [address] [place], [address] Basophils/100 WBC (Bld) 1.1 % High 0-1 [facility] Comment on above: Performed By: #### L 100.0100, L500.4050 ####[facility] [address] [place], [address] Eosinophils/100 WBC (Bld) 1.9 % Normal 0-5 [facility] Comment on above: Performed By: #### L 100.0100, L500.4050 ####[facility] [address] [place], [address] Erythrocyte distribution width (RBC) [Ratio] 13.2 % Normal 11.6-14.6 [facility] Comment on above: Performed By: #### L 100.0100, L500.4050 ####[facility] [address] [place], [address] Hematocrit (Bld) [Volume fraction] 39.3 % Normal 37-47 [facility] Comment on above: Performed By: #### L 100.0100, L500.4050 ####[facility] [address] [place], [address] Hemoglobin (Bld) [Mass/Vol] 13.3 g/dL Normal 12.0-15.0 [facility] Comment on above: Performed By: #### L 100.0100, L500.4050 ####[facility] [address] [place], [address] IG% 0.800 Normal 0.0-0.9 [facility] Comment on above: Result Comment: IG% - Immature Granulocytes (promyelocytes, myelocytes andmetamyelocytes) > 1% indicates that a LEFT SHIFT is Present. Performed By: #### L 100.0100, L500.4050 ####[facility] [address] [place], [address] Lymphocytes/100 WBC (Bld) 17.3 % Low 19-41 [facility] Comment on above: Performed By: #### L 100.0100, L500.4050 ####[facility] [address] [place], [address] MCH (RBC) [Entitic mass] 29.0 pg Normal 27.0-32.0 [facility] Comment on above: Performed By: #### L 100.0100, L500.4050 ####[facility] [address] [place], [address] MCHC (RBC) [Mass/Vol] 33.8 g/dL Normal 32-36 [facility] Comment on above: Performed By: #### L 100.0100, L500.4050 ####[facility] [address] [place], [address] MCV (RBC) [Entitic vol] 85.8 fL Normal 81-99 [facility] Comment on above: Performed By: #### L 100.0100, L500.4050 ####[facility] [address] [place], [address] Monocytes/100 WBC (Bld) 7.7 % Normal 0-10 [facility] Comment on above: Performed By: #### L 100.0100, L500.4050 ####[facility] [address] [place], [address] Neutrophils/100 WBC (Bld) 71.2 % High 47-70 [facility] Comment on above: Performed By: #### L 100.0100, L500.4050 ####[facility] [address] [place], [address] Nucleated RBC (Bld) [#/Vol] 0 10*3/uL Normal 0-5 [facility] Comment on above: Performed By: #### L 100.0100, L500.4050 ####[facility] [address] [place], [address] Platelet mean volume (Bld) [Entitic vol] 9.0 fL Normal 6.2-12.0 [facility] Comment on above: Performed By: #### L 100.0100, L500.4050 ####[facility] [address] [place], [address] Platelets (Bld) [#/Vol] 198 10*3/uL Normal 150-450 [facility] Comment on above: Performed By: #### L 100.0100, L500.4050 ####[facility] [address] [place], [address] RBC (Bld) [#/Vol] 4.58 10*6/uL Normal 4.2-5.4 [facility] Comment on above: Performed By: #### L 100.0100, L500.4050 ####[facility] [address] [place], [address] RDW SD 41.1 fl Normal 35.1-43.9 [facility] Comment on above: Performed By: #### L 100.0100, L500.4050 ####[facility] [address] [place], [address] WBC (Bld) [#/Vol] 5.3 10*3/uL Normal 4.4-11.0 [facility] Comment on above: Performed By: #### L 100.0100, L500.4050 ####[facility] [address] [place], [address] Carbon dioxide, total [Moles /volume] in Central venous bloodOrdered By: Arturo Olivas on 05-08-2025 CO2 [Moles/Vol] 24.7 mmol/L 21.0-32.0 [facility] Chloride assayOrdered By: Tiny Olivas on 05-08-2025 Chloride [Moles/Vol] 106 mmol/L 98-108 [facility] Comprehensive Metabolic Prof ilon 05-08-2025 Albumin [Mass/Vol] 3.7 g/dL Normal 3.4-4.8 [facility] Comment on above: Performed By: #### L 100.0100, L500.4050 ####[facility] [address] [place], [address] Albumin/Globulin [Mass ratio] 1.3 {ratio} Normal 0.9-2.4 [facility] Comment on above: Performed By: #### L 100.0100, L500.4050 ####[facility] [address] [place], [address] ALK PHOS 59 U/L Normal 35-104 [facility] Comment on above: Performed By: #### L 100.0100, L500.4050 ####[facility] [address] [place], [address] ALT [Catalytic activity/Vol] 11 U/L Normal <=34 [facility] Comment on above: Performed By: #### L 100.0100, L500.4050 ####[facility] [address] [place], [address] AST [Catalytic activity/Vol] 23 U/L Normal <=31 [facility] Comment on above: Performed By: #### L 100.0100, L500.4050 ####[facility] [address] [place], [address] Bilirubin [Mass/Vol] 0.51 mg/dL Normal 0.00-1.30 [facility] Comment on above: Performed By: #### L 100.0100, L500.4050 ####[facility] [address] [place], [address] BUN/CRE 26.8 RATIO High 10-20 [facility] Comment on above: Performed By: #### L 100.0100, L500.4050 ####[facility] [address] [place], [address] Calcium [Mass/Vol] 8.9 mg/dL Normal 7.6-11.0 [facility] Comment on above: Performed By: #### L 100.0100, L500.4050 ####[facility] [address] [place], [address] Chloride [Moles/Vol] 106 mmol/L Normal 98-108 [facility] Comment on above: Performed By: #### L 100.0100, L500.4050 ####[facility] [address] [place], [address] CO2 [Moles/Vol] 24.7 mmol/L Normal 21.0-32.0 [facility] Comment on above: Performed By: #### L 100.0100, L500.4050 ####[facility] [address] [place], [address] Creatinine [Mass/Vol] 0.66 mg/dL Low 0.70-1.20 [facility] Comment on above: Performed By: #### L 100.0100, L500.4050 ####[facility] [address] [place], [address] ECRCL 72.16 ml/min Normal 50-250 [facility] Comment on above: Performed By: #### L 100.0100, L500.4050 ####[facility] [address] [place], [address] GAP 9 Normal 5-15 [facility] Comment on above: Performed By: #### L 100.0100, L500.4050 ####[facility] [address] [place], [address] GFR/1.73 sq M.predicted among non-blacks MDRD (S/P/Bld) [Vol rate/Area] 93 mL/min/{1.73_m2} Normal >60 [facility] Comment on above: Result Comment: mL/m in/1.73m2 CKD-EPI Creatinine Equation (2020) Performed By: #### L 100.0100, L500.4050 ####[facility] [address] [place], [address] Globulin (S) [Mass/Vol] 2.7 g/dL Normal 2.2-4.2 [facility] Comment on above: Performed By: #### L 100.0100, L500.4050 ####[facility] [address] [place], [address] Glucose [Mass/Vol] 91 mg/dL Normal 70-99 [facility] Comment on above: Performed By: #### L 100.0100, L500.4050 ####[facility] [address] [place], [address] Potassium [Moles/Vol] 4.1 mmol/L Normal 3.3-5.1 [facility] Comment on above: Performed By: #### L 100.0100, L500.4050 ####[facility] [address] [place], [address] Sodium [Moles/Vol] 140 mmol/L Normal 133-145 [facility] Comment on above: Performed By: #### L 100.0100, L500.4050 ####[facility] [address] [place], [address] T PROT 6.4 g/dL Normal 5.9-8.4 [facility] Comment on above: Performed By: #### L 100.0100, L500.4050 ####[facility] [address] [place], [address] Urea nitrogen [Mass/Vol] 18 mg/dL Normal 4-19 [facility] Comment on above: Performed By: #### L 100.0100, L500.4050 ####[facility] [address] [place], [address] Eosinophil percentageOrdered By: Arturo Olivas on 05-08-2025 Eosinophils/100 WBC (Bld) 1.9 % 0-5 [facility] Erythrocyte distribution wid th ratioOrdered By: Arturo Olivas on 05-08-2025 Erythrocyte distribution width (RBC) [Ratio] 13.2 % 11.6-14.6 [facility] Erythrocyte distribution wid th standard deviationOrdered By: Arturo Olivas on 05-08-2025 Erythrocyte distribution width (RBC) [Ratio] 41.1 fl 35.1-43.9 [facility] Glomerular filtration rate ( GFR) estimation/1.73 sq m using serum, plasma, or whole bOrdered By: Arturo Olivas on 05-08-2025 GFR/1.73 sq M.predicted among non-blacks MDRD (S/P/Bld) [Vol rate/Area] 93 mL/min/{1.73_m2} >60 [facility] Comment on above: mL/min/1.73m2 CKD-EP I Creatinine Equation (2020) Hematocrit Auto (Bld) [Volum e fraction]Ordered By: Arturo Olivas on 05-08-2025 Hematocrit (Bld) [Volume fraction] 39.3 % 37-47 [facility] Hemoglobin measurementOrdere d By: Arturo Olivas on 05-08-2025 Hemoglobin (Bld) [Mass/Vol] 13.3 g/dL 12.0-15.0 [facility] Immature granulocytes/100 WB C Auto (Bld)Ordered By: Arturo Olivas on 05-08-2025 Immature granulocytes/100 WBC (Bld) 0.800 % 0.0-0.9 [facility] Comment on above: IG% - Immature Granu locytes (promyelocytes, myelocytes and metamyelocytes) > 1% indicates that a LEFT SHIFT is Present. Laboratory - Chemistry and C hemistry - challengeOrdered By: Arturo Olivas on 05-08-2025 AST [Catalytic activity/Vol] 23 U/L <32 [facility] MCV (mean corpuscular volume ) determinationOrdered By: Arturo Olivas on 05-08-2025 MCV (RBC) [Entitic vol] 85.8 fL 81-99 [facility] Mean corpuscular hemoglobin (MCH) determinationOrdered By: Arturo Olivas on 05-08-2025 MCH (RBC) [Entitic mass] 29.0 pg 27.0-32.0 [facility] Mean corpuscular hemoglobin concentration (MCHC) determinationOrdered By: Arturo Olivas on 05-08-2025 MCHC (RBC) [Mass/Vol] 33.8 g/dL 32-36 [facility] Mean platelet volume determi nationOrdered By: Arturo Olivas on 05-08-2025 Platelet mean volume (Bld) [Entitic vol] 9.0 fL 6.2-12.0 [facility] Monocyte percentageOrdered B y: Arturo Olivas on 05-08-2025 Monocytes/100 WBC (Bld) 7.7 % 0-10 [facility] Neutrophil percentageOrdered By: Arturo Olivas on 05-08-2025 Neutrophils/100 WBC (Bld) 71.2 % High 47-70 [facility] Nucleated red blood cell per centageOrdered By: Arturo Olivas on 05-08-2025 Nucleated RBC/100 WBC (Bld) [Ratio] 0 % 0-5 [facility] Oncology Visit Reporton 04-29 Oncology Visit Report Normal [facility] Platelet countOrdered By: Tiny Olivas on 05-08-2025 Platelets (Bld) [#/Vol] 198 10*3/uL 150-450 [facility] Potassium measurement (mass/ volume)Ordered By: Arturo Olivas on 05-08-2025 Potassium (Unsp spec) [Mass/Vol] 4.1 mmol/L 3.3-5.1 [facility] RBC Auto (Bld) [#/Vol]Ordere d By: Arturo Olivas on 05-08-2025 RBC (Bld) [#/Vol] 4.58 10*6/uL 4.2-5.4 [facility] Serum creatinine measurement (mass/volume)Ordered By: Arturo Olivas on 05-08-2025 Creatinine [Mass/Vol] 0.66 mg/dL Low 0.70-1.20 [facility] Serum globulin measurementOr dered By: Arturo Olivas on 05-08-2025 Globulin (S) [Mass/Vol] 2.7 g/dL 2.2-4.2 [facility] Serum glucose measurement (m ass/volume)Ordered By: Arturo Olivas on 05-08-2025 Glucose [Mass/Vol] 91 mg/dL 70-99 [facility] Serum or plasma alanine denise otransferase (ALT) measurementOrdered By: Arturo Olivas on 05-08-2025 ALT [Catalytic activity/Vol] 11 U/L <35 [facility] Serum or plasma albumin salvador urement (mass/volume)Ordered By: Arturo Olivas on 05-08-2025 Albumin [Mass/Vol] 3.7 g/dL 3.4-4.8 [facility] Serum or plasma albumin/glob ulin mass ratioOrdered By: Arturo Olivas on 05-08-2025 Albumin/Globulin [Mass ratio] 1.3 {ratio} 0.9-2.4 [facility] Serum or plasma alkaline giuliano sphatase measurementOrdered By: Arturo Olivas on 05-08-2025 ALP [Catalytic activity/Vol] 59 U/L 35-104 [facility] Serum or plasma calcium salvador urement (mass/volume)Ordered By: Arturo Olivas on 05-08-2025 Calcium [Mass/Vol] 8.9 mg/dL 7.6-11.0 [facility] Serum or plasma urea nitroge n measurement (mass/volume)Ordered By: Arturo Olivas on 05-08-2025 Urea nitrogen [Mass/Vol] 18 mg/dL 4-19 [facility] Sodium levelOrdered By: Mo Olivas on 05-08-2025 Sodium [Moles/Vol] 140 mmol/L 133-145 [facility] Total proteinOrdered By: Dalton Olivas on 05-08-2025 Protein [Mass/Vol] 6.4 g/dL 5.9-8.4 [facility] White blood cell (WBC) count Ordered By: Arturo Olivas on 05-08-2025 WBC (Bld) [#/Vol] 5.3 10*3/uL 4.4-11.0 [facility] Oncology Visit Reporton 03-30 Oncology Visit Report Normal [facility] Limited echocardiogram repor tOrdered By: Sridhar Fay on 04-14-2025 Study report [facility] [address] [place] [address] ONC Echo Limited w/Contrast 04/10/25 0940 MR#: [id number] Acct: [id number] Name: REBA BECKFORD Rep #:[id number] : 1950 74 From: Sridhar Carroll Attending Dr: Dr. Arturo Olivas MD Status: REG CLI Ordering Dr: Arturo Olivas MD Date: 04/10/25 Location: [facility] Sex: F C Admitted: Reason For Study Reason For Study: ANTINEOPLASTIC CHEMO Procedure This was a limited 2D transthoracic echocardiogram. Myocardial strain analysis was performed in this exam to aid in the assessment of cardiac function. Exam performed in department. Left Ventricle Normal LV size. The left ventricular ejection fraction is 55 %. No regional wallmotion abnormalities noted. Right Ventricle Normal RV size. Normal systolic function. Atria Normal left atrium. Normal right atrium. Mitral Valve Normal mitral valve. Tricuspid Valve Normal tricuspid valve. Great Vessels Normal aortic root. Pericardium/Pleural No pericardial effusion. MMode/2D Measurements & Calculations LVIDd: 4.7 cm IVSd: 0.93 cm LVOT diam: 2.0 cm LVIDs: 3.2 cm LVPWd: 1.2 cm LVOT area: 3.3 cm2 RVDd: 3.4 cm FS: 31.7 % Ao root diam: 3.2 cm LAV(MOD-bp): 33.2 ml LVAd ap4: 21.7 cm2 LAV(MOD-bp) Indexed: 16.9 ml/m2 LVLd ap4: 7.4 cm LAV(MOD-sp2): 33.7 ml EDV(MOD-sp4): 54.5 ml LAV(MOD-sp4): 27.2 ml EDV(sp4-el): 53.8 ml LVAs ap4: 13.1 cm2 LVLs ap4: 6.1 cm ESV(MOD-sp4): 24.8 ml ESV(sp4-el): 23.9 ml EF(MOD-sp4): 54.5 % EF(sp4-el): 55.6 % SV(MOD-sp4): 29.7 ml SV(sp4-el): 29.9 ml LA A4 area: 13.0 cm2 SI(MOD-sp4): 15.1 ml/m2 LA dimension(2D): 3.9 cm RA A4 area: 12.6 cm2 ECHO/ONC Echo Limited w/Contrast Interpretation Summary Normal LV size. The left ventricular ejection fraction is 55 %. The global longitudinal strain is normal. The global longitudinal strain = -18.6% (normal). Ordering Physician: Arturo Olivas Referring Physician: Arturo Olivas Performed By: eClina Navarrete, WAGNER 04/14/251929 Date _ Sridhar Fay MD CC: Dr. Arturo Olivas MD; Dr. 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[facility] Work Phone: ONC Echo Limited w/Contrasto n 04-10-2025 ONC Echo Limited w/Contrast Normal [facility] Absolute lymphocyte countOrd ered By: Arturo Olivas on 03-27-2025 Lymphocytes Auto (Unsp spec) [#/Vol] 0.94 10*3/uL 0.83-4.51 [facility] Absolute neutrophil countOrd ered By: Arturo Olivas on 03-27-2025 Neutrophils (Bld) [#/Vol] 3.6 10*3/uL 2.0-7.7 [facility] Anion gap in Serum or Plasma Ordered By: Arturo Olivas on 03-27-2025 Anion gap [Moles/Vol] 9 mmol/L 5-15 [facility] Automated lymphocyte count a s percentage of total leukocytesOrdered By: Arturo Olivas on 03-27-2025 Lymphocytes/100 WBC Auto (Unsp spec) 18.6 % Low 19-41 [facility] BUN/creatinine ratioOrdered By: Arturo Olivas on 03-27-2025 Urea nitrogen/Creatinine [Mass ratio] 21.2 mg/mg High 10-20 [facility] Basophil percentageOrdered B y: Arturo Olivas on 03-27-2025 Basophils/100 WBC (Bld) 1.0 % 0-1 [facility] Bilirubin, totalOrdered By: Arturo Olivas on 03-27-2025 Bilirubin [Mass/Vol] 0.35 mg/dL 0.00-1.30 [facility] CBC W/Diff, Automatedon 02-28 Absolute Lymph 0.94 X10 3/uL Normal 0.83-4.51 [facility] Comment on above: Performed By: #### L 501.2300, L100.0100, L500.4050, L501.5200 ####[facility] [address] [place], [address] Absolute Neut 3.6 X10 3/uL Normal 2.0-7.7 [facility] Comment on above: Performed By: #### L 501.2300, L100.0100, L500.4050, L501.5200 ####[facility] [address] [place], [address] Basophils/100 WBC (Bld) 1.0 % Normal 0-1 [facility] Comment on above: Performed By: #### L 501.2300, L100.0100, L500.4050, L501.5200 ####[facility] [address] [place], [address] Eosinophils/100 WBC (Bld) 1.4 % Normal 0-5 [facility] Comment on above: Performed By: #### L 501.2300, L100.0100, L500.4050, L501.5200 ####[facility] [address] [place], [address] Erythrocyte distribution width (RBC) [Ratio] 12.5 % Normal 11.6-14.6 [facility] Comment on above: Performed By: #### L 501.2300, L100.0100, L500.4050, L501.5200 ####[facility] [address] [place], [address] Hematocrit (Bld) [Volume fraction] 40.0 % Normal 37-47 [facility] Comment on above: Performed By: #### L 501.2300, L100.0100, L500.4050, L501.5200 ####[facility] [address] [place], [address] Hemoglobin (Bld) [Mass/Vol] 13.7 g/dL Normal 12.0-15.0 [facility] Comment on above: Performed By: #### L 501.2300, L100.0100, L500.4050, L501.5200 ####[facility] [address] [place], [address] IG% 0.600 Normal 0.0-0.9 [facility] Comment on above: Result Comment: IG% - Immature Granulocytes (promyelocytes, myelocytes andmetamyelocytes) > 1% indicates that a LEFT SHIFT is Present. Performed By: #### L 501.2300, L100.0100, L500.4050, L501.5200 ####[facility] [address] [place], [address] Lymphocytes/100 WBC (Bld) 18.6 % Low 19-41 [facility] Comment on above: Performed By: #### L 501.2300, L100.0100, L500.4050, L501.5200 ####[facility] [address] [place], [address] MCH (RBC) [Entitic mass] 29.3 pg Normal 27.0-32.0 [facility] Comment on above: Performed By: #### L 501.2300, L100.0100, L500.4050, L501.5200 ####[facility] [address] [place], [address] MCHC (RBC) [Mass/Vol] 34.3 g/dL Normal 32-36 [facility] Comment on above: Performed By: #### L 501.2300, L100.0100, L500.4050, L501.5200 ####[facility] [address] [place], [address] MCV (RBC) [Entitic vol] 85.7 fL Normal 81-99 [facility] Comment on above: Performed By: #### L 501.2300, L100.0100, L500.4050, L501.5200 ####[facility] [address] [place], [address] Monocytes/100 WBC (Bld) 7.3 % Normal 0-10 [facility] Comment on above: Performed By: #### L 501.2300, L100.0100, L500.4050, L501.5200 ####[facility] [address] [place], [address] Neutrophils/100 WBC (Bld) 71.1 % High 47-70 [facility] Comment on above: Performed By: #### L 501.2300, L100.0100, L500.4050, L501.5200 ####[facility] [address] [place], [address] Nucleated RBC (Bld) [#/Vol] 0 10*3/uL Normal 0-5 [facility] Comment on above: Performed By: #### L 501.2300, L100.0100, L500.4050, L501.5200 ####[facility] [address] [place], [address] Platelet mean volume (Bld) [Entitic vol] 9.0 fL Normal 6.2-12.0 [facility] Comment on above: Performed By: #### L 501.2300, L100.0100, L500.4050, L501.5200 ####[facility] [address] [place], [address] Platelets (Bld) [#/Vol] 195 10*3/uL Normal 150-450 [facility] Comment on above: Performed By: #### L 501.2300, L100.0100, L500.4050, L501.5200 ####[facility] [address] [place], [address] RBC (Bld) [#/Vol] 4.67 10*6/uL Normal 4.2-5.4 [facility] Comment on above: Performed By: #### L 501.2300, L100.0100, L500.4050, L501.5200 ####[facility] [address] [place], [address] RDW SD 38.6 fl Normal 35.1-43.9 [facility] Comment on above: Performed By: #### L 501.2300, L100.0100, L500.4050, L501.5200 ####[facility] [address] [place], [address] WBC (Bld) [#/Vol] 5.1 10*3/uL Normal 4.4-11.0 [facility] Comment on above: Performed By: #### L 501.2300, L100.0100, L500.4050, L501.5200 ####[facility] [address] [place], [address] Carbon dioxide, total [Moles /volume] in Central venous bloodOrdered By: Arturo Olivas on 03-27-2025 CO2 [Moles/Vol] 24.4 mmol/L 21.0-32.0 [facility] Chloride assayOrdered By: Tiny Olivas on 03-27-2025 Chloride [Moles/Vol] 107 mmol/L 98-108 [facility] Comprehensive Metabolic Prof ilon 03-27-2025 Albumin [Mass/Vol] 3.7 g/dL Normal 3.4-4.8 [facility] Comment on above: Performed By: #### L 501.2300, L100.0100, L500.4050, L501.5200 ####[facility] [address] [place], [address] Albumin/Globulin [Mass ratio] 1.3 {ratio} Normal 0.9-2.4 [facility] Comment on above: Performed By: #### L 501.2300, L100.0100, L500.4050, L501.5200 ####[facility] [address] [place], [address] ALK PHOS 76 U/L Normal 35-104 [facility] Comment on above: Performed By: #### L 501.2300, L100.0100, L500.4050, L501.5200 ####[facility] [address] [place], [address] ALT [Catalytic activity/Vol] 14 U/L Normal <=34 [facility] Comment on above: Performed By: #### L 501.2300, L100.0100, L500.4050, L501.5200 ####[facility] [address] [place], [address] AST [Catalytic activity/Vol] 21 U/L Normal <=31 [facility] Comment on above: Performed By: #### L 501.2300, L100.0100, L500.4050, L501.5200 ####[facility] [address] [place], [address] Bilirubin [Mass/Vol] 0.35 mg/dL Normal 0.00-1.30 [facility] Comment on above: Performed By: #### L 501.2300, L100.0100, L500.4050, L501.5200 ####[facility] [address] [place], [address] BUN/CRE 21.2 RATIO High 10-20 [facility] Comment on above: Performed By: #### L 501.2300, L100.0100, L500.4050, L501.5200 ####[facility] [address] [place], [address] Calcium [Mass/Vol] 8.5 mg/dL Normal 7.6-11.0 [facility] Comment on above: Performed By: #### L 501.2300, L100.0100, L500.4050, L501.5200 ####[facility] [address] [place], [address] Chloride [Moles/Vol] 107 mmol/L Normal 98-108 [facility] Comment on above: Performed By: #### L 501.2300, L100.0100, L500.4050, L501.5200 ####[facility] [address] [place], [address] CO2 [Moles/Vol] 24.4 mmol/L Normal 21.0-32.0 [facility] Comment on above: Performed By: #### L 501.2300, L100.0100, L500.4050, L501.5200 ####[facility] [address] [place], [address] Creatinine [Mass/Vol] 0.59 mg/dL Low 0.70-1.20 [facility] Comment on above: Performed By: #### L 501.2300, L100.0100, L500.4050, L501.5200 ####[facility] [address] [place], [address] ECRCL 71.79 ml/min Normal 50-250 [facility] Comment on above: Performed By: #### L 501.2300, L100.0100, L500.4050, L501.5200 ####[facility] [address] [place], [address] GAP 9 Normal 5-15 [facility] Comment on above: Performed By: #### L 501.2300, L100.0100, L500.4050, L501.5200 ####[facility] [address] [place], [address] GFR/1.73 sq M.predicted among non-blacks MDRD (S/P/Bld) [Vol rate/Area] 96 mL/min/{1.73_m2} Normal >60 [facility] Comment on above: Result Comment: mL/m in/1.73m2 CKD-EPI Creatinine Equation (2020) Performed By: #### L 501.2300, L100.0100, L500.4050, L501.5200 ####[facility] [address] [place], [address] Globulin (S) [Mass/Vol] 2.9 g/dL Normal 2.2-4.2 [facility] Comment on above: Performed By: #### L 501.2300, L100.0100, L500.4050, L501.5200 ####[facility] [address] [place], [address] Glucose [Mass/Vol] 90 mg/dL Normal 70-99 [facility] Comment on above: Performed By: #### L 501.2300, L100.0100, L500.4050, L501.5200 ####[facility] [address] [place], [address] Potassium [Moles/Vol] 3.9 mmol/L Normal 3.3-5.1 [facility] Comment on above: Performed By: #### L 501.2300, L100.0100, L500.4050, L501.5200 ####[facility] [address] [place], [address] Sodium [Moles/Vol] 140 mmol/L Normal 133-145 [facility] Comment on above: Performed By: #### L 501.2300, L100.0100, L500.4050, L501.5200 ####[facility] [address] [place], [address] T PROT 6.6 g/dL Normal 5.9-8.4 [facility] Comment on above: Performed By: #### L 501.2300, L100.0100, L500.4050, L501.5200 ####[facility] [address] [place], [address] Urea nitrogen [Mass/Vol] 13 mg/dL Normal 4-19 [facility] Comment on above: Performed By: #### L 501.2300, L100.0100, L500.4050, L501.5200 ####[facility] [address] [place], [address] Eosinophil percentageOrdered By: Arturo Olivas on 03-27-2025 Eosinophils/100 WBC (Bld) 1.4 % 0-5 [facility] Erythrocyte distribution wid th ratioOrdered By: Arturo Olivas on 03-27-2025 Erythrocyte distribution width (RBC) [Ratio] 12.5 % 11.6-14.6 [facility] Erythrocyte distribution wid th standard deviationOrdered By: [facility] Ol[facility] on 03-27-2025 Erythrocyte distribution width (RBC) [Ratio] 38.6 fl 35.1-43.9 [facility] Glomerular filtration rate ( GFR) estimation/1.73 sq m using serum, plasma, or whole bOrdered By: Arturo Olivas on 03-27-2025 GFR/1.73 sq M.predicted among non-blacks MDRD (S/P/Bld) [Vol rate/Area] 96 mL/min/{1.73_m2} >60 [facility] Comment on above: mL/min/1.73m2 CKD-EP I Creatinine Equation (2020) Hematocrit Auto (Bld) [Volum e fraction]Ordered By: Arturo Olivas on 03-27-2025 Hematocrit (Bld) [Volume fraction] 40.0 % 37-47 [facility] Hemoglobin measurementOrdere d By: Arturo Olivas on 03-27-2025 Hemoglobin (Bld) [Mass/Vol] 13.7 g/dL 12.0-15.0 [facility] Immature granulocytes/100 WB C Auto (Bld)Ordered By: Arturo Olivas on 03-27-2025 Immature granulocytes/100 WBC (Bld) 0.600 % 0.0-0.9 [facility] Comment on above: IG% - Immature Granu locytes (promyelocytes, myelocytes and metamyelocytes) > 1% indicates that a LEFT SHIFT is Present. Laboratory - Chemistry and C hemistry - challengeOrdered By: Arturo Olivas on 03-27-2025 AST [Catalytic activity/Vol] 21 U/L <32 [facility] MCV (mean corpuscular volume ) determinationOrdered By: [facility] Ol[facility] on 03-27-2025 MCV (RBC) [Entitic vol] 85.7 fL 81-99 [facility] Magnesiumon 03-27-2025 Magnesium [Mass/Vol] 2.3 mg/dL High 1.5-2.2 [facility] Comment on above: Performed By: #### L 501.2300, L100.0100, L500.4050, L501.5200 ####[facility] [address] [place], [address] Magnesium measurement (mass/ volume)Ordered By: Arturo Olivas on 03-27-2025 Magnesium (Unsp spec) [Mass/Vol] 2.3 mg/dL High 1.5-2.2 [facility] Mean corpuscular hemoglobin (MCH) determinationOrdered By: Arturo Olivas on 03-27-2025 MCH (RBC) [Entitic mass] 29.3 pg 27.0-32.0 [facility] Mean corpuscular hemoglobin concentration (MCHC) determinationOrdered By: [facility] Ol[facility] on 03-27-2025 MCHC (RBC) [Mass/Vol] 34.3 g/dL 32-36 [facility] Mean platelet volume determi nationOrdered By: Arturo Olivas on 03-27-2025 Platelet mean volume (Bld) [Entitic vol] 9.0 fL 6.2-12.0 [facility] Monocyte percentageOrdered B y: Arturo Olivas on 03-27-2025 Monocytes/100 WBC (Bld) 7.3 % 0-10 [facility] Neutrophil percentageOrdered By: Arturo Olivas on 03-27-2025 Neutrophils/100 WBC (Bld) 71.1 % High 47-70 [facility] Nucleated red blood cell per centageOrdered By: Arturo Olivas on 03-27-2025 Nucleated RBC/100 WBC (Bld) [Ratio] 0 % 0-5 [facility] Oncology Visit Reporton 02-28 Oncology Visit Report Normal [facility] Phosphoruson 03-27-2025 Phosphate [Mass/Vol] 3.4 mg/dL Normal 2.7-4.5 [facility] Comment on above: Performed By: #### L 501.2300, L100.0100, L500.4050, L501.5200 ####[facility] [address] [place], [address] Platelet countOrdered By: Tiny Olivas on 03-27-2025 Platelets (Bld) [#/Vol] 195 10*3/uL 150-450 [facility] Potassium measurement (mass/ volume)Ordered By: Arturo Olivas on 03-27-2025 Potassium (Unsp spec) [Mass/Vol] 3.9 mmol/L 3.3-5.1 [facility] RBC Auto (Bld) [#/Vol]Ordere d By: Arturo Olivas on 03-27-2025 RBC (Bld) [#/Vol] 4.67 10*6/uL 4.2-5.4 [facility] Serum creatinine measurement (mass/volume)Ordered By: Arturo Olivas on 03-27-2025 Creatinine [Mass/Vol] 0.59 mg/dL Low 0.70-1.20 [facility] Serum globulin measurementOr dered By: Arturo Olivas on 03-27-2025 Globulin (S) [Mass/Vol] 2.9 g/dL 2.2-4.2 [facility] Serum glucose measurement (m ass/volume)Ordered By: Arturo Olivas on 03-27-2025 Glucose [Mass/Vol] 90 mg/dL 70-99 [facility] Serum or plasma alanine denise otransferase (ALT) measurementOrdered By: Arturo Olivas on 03-27-2025 ALT [Catalytic activity/Vol] 14 U/L <35 [facility] Serum or plasma albumin salvador urement (mass/volume)Ordered By: Arturo Olivas on 03-27-2025 Albumin [Mass/Vol] 3.7 g/dL 3.4-4.8 [facility] Serum or plasma albumin/glob ulin mass ratioOrdered By: Arturo Olivas on 03-27-2025 Albumin/Globulin [Mass ratio] 1.3 {ratio} 0.9-2.4 [facility] Serum or plasma alkaline giuliano sphatase measurementOrdered By: Arturo Olivas on 03-27-2025 ALP [Catalytic activity/Vol] 76 U/L 35-104 [facility] Serum or plasma calcium salvador urement (mass/volume)Ordered By: Arturo Olivas on 03-27-2025 Calcium [Mass/Vol] 8.5 mg/dL 7.6-11.0 [facility] Serum or plasma urea nitroge n measurement (mass/volume)Ordered By: Arturo Olivas on 03-27-2025 Urea nitrogen [Mass/Vol] 13 mg/dL 4-19 [facility] Sodium levelOrdered By: Mo Olivas on 03-27-2025 Sodium [Moles/Vol] 140 mmol/L 133-145 [facility] Total proteinOrdered By: Dalton Olivas on 03-27-2025 Protein [Mass/Vol] 6.6 g/dL 5.9-8.4 [facility] White blood cell (WBC) count Ordered By: Arturo Olivas on 03-27-2025 WBC (Bld) [#/Vol] 5.1 10*3/uL 4.4-11.0 [facility] Radiation Oncology Visiton 0 03-06-2025 Radiation Oncology Visit Normal [facility] CBC W/Diff, Automatedon 01-28 Absolute Lymph 0.80 X10 3/uL Low 0.83-4.51 [facility] Comment on above: Performed By: #### L 100.0100, L500.4100, L500.4050, L501.2300, L501.5200 ####[facility] [address] [place], [address] Absolute Neut 2.8 X10 3/uL Normal 2.0-7.7 [facility] Comment on above: Performed By: #### L 100.0100, L500.4100, L500.4050, L501.2300, L501.5200 ####[facility] [address] [place], [address] Basophils/100 WBC (Bld) 1.2 % High 0-1 [facility] Comment on above: Performed By: #### L 100.0100, L500.4100, L500.4050, L501.2300, L501.5200 ####[facility] [address] [place], [address] Eosinophils/100 WBC (Bld) 1.5 % Normal 0-5 [facility] Comment on above: Performed By: #### L 100.0100, L500.4100, L500.4050, L501.2300, L501.5200 ####[facility] [address] [place], [address] Erythrocyte distribution width (RBC) [Ratio] 11.9 % Normal 11.6-14.6 [facility] Comment on above: Performed By: #### L 100.0100, L500.4100, L500.4050, L501.2300, L501.5200 ####[facility] [address] [place], [address] Hematocrit (Bld) [Volume fraction] 39.3 % Normal 37-47 [facility] Comment on above: Performed By: #### L 100.0100, L500.4100, L500.4050, L501.2300, L501.5200 ####[facility] [address] [place], [address] Hemoglobin (Bld) [Mass/Vol] 13.4 g/dL Normal 12.0-15.0 [facility] Comment on above: Performed By: #### L 100.0100, L500.4100, L500.4050, L501.2300, L501.5200 ####[facility] [address] [place], [address] IG% 0.500 Normal 0.0-0.9 [facility] Comment on above: Result Comment: IG% - Immature Granulocytes (promyelocytes, myelocytes andmetamyelocytes) > 1% indicates that a LEFT SHIFT is Present. Performed By: #### L 100.0100, L500.4100, L500.4050, L501.2300, L501.5200 ####[facility] [address] [place], [address] Lymphocytes/100 WBC (Bld) 19.8 % Normal 19-41 [facility] Comment on above: Performed By: #### L 100.0100, L500.4100, L500.4050, L501.2300, L501.5200 ####[facility] [address] [place], [address] MCH (RBC) [Entitic mass] 30.0 pg Normal 27.0-32.0 [facility] Comment on above: Performed By: #### L 100.0100, L500.4100, L500.4050, L501.2300, L501.5200 ####[facility] [address] [place], [address] MCHC (RBC) [Mass/Vol] 34.1 g/dL Normal 32-36 [facility] Comment on above: Performed By: #### L 100.0100, L500.4100, L500.4050, L501.2300, L501.5200 ####[facility] [address] [place], [address] MCV (RBC) [Entitic vol] 88.1 fL Normal 81-99 [facility] Comment on above: Performed By: #### L 100.0100, L500.4100, L500.4050, L501.2300, L501.5200 ####[facility] [address] [place], [address] Monocytes/100 WBC (Bld) 9.1 % Normal 0-10 [facility] Comment on above: Performed By: #### L 100.0100, L500.4100, L500.4050, L501.2300, L501.5200 ####[facility] [address] [place], [address] Neutrophils/100 WBC (Bld) 67.9 % Normal 47-70 [facility] Comment on above: Performed By: #### L 100.0100, L500.4100, L500.4050, L501.2300, L501.5200 ####[facility] [address] [place], [address] Nucleated RBC (Bld) [#/Vol] 0 10*3/uL Normal 0-5 [facility] Comment on above: Performed By: #### L 100.0100, L500.4100, L500.4050, L501.2300, L501.5200 ####[facility] [address] [place], [address] Platelet mean volume (Bld) [Entitic vol] 9.1 fL Normal 6.2-12.0 [facility] Comment on above: Performed By: #### L 100.0100, L500.4100, L500.4050, L501.2300, L501.5200 ####[facility] [address] [place], [address] Platelets (Bld) [#/Vol] 180 10*3/uL Normal 150-450 [facility] Comment on above: Performed By: #### L 100.0100, L500.4100, L500.4050, L501.2300, L501.5200 ####[facility] [address] [place], [address] RBC (Bld) [#/Vol] 4.46 10*6/uL Normal 4.2-5.4 [facility] Comment on above: Performed By: #### L 100.0100, L500.4100, L500.4050, L501.2300, L501.5200 ####[facility] [address] [place], [address] RDW SD 38.2 fl Normal 35.1-43.9 [facility] Comment on above: Performed By: #### L 100.0100, L500.4100, L500.4050, L501.2300, L501.5200 ####[facility] [address] [place], [address] WBC (Bld) [#/Vol] 4.1 10*3/uL Low 4.4-11.0 [facility] Comment on above: Performed By: #### L 100.0100, L500.4100, L500.4050, L501.2300, L501.5200 ####[facility] [address] [place], [address] Calculated very low density lipoprotein (VLDL) cholesterol measurementOrdered By: Sridhar Fay on 02-13-2025 Calculated very low density lipoprotein (VLDL) cholesterol measurement 18 mg/dL 5-40 [facility] Comprehensive Metabolic Prof ilon 02-13-2025 Albumin [Mass/Vol] 3.7 g/dL Normal 3.4-4.8 [facility] Comment on above: Performed By: #### L 100.0100, L500.4100, L500.4050, L501.2300, L501.5200 ####[facility] [address] [place], [address] Albumin/Globulin [Mass ratio] 1.3 {ratio} Normal 0.9-2.4 [facility] Comment on above: Performed By: #### L 100.0100, L500.4100, L500.4050, L501.2300, L501.5200 ####[facility] [address] [place], [address] ALK PHOS 82 U/L Normal 35-104 [facility] Comment on above: Performed By: #### L 100.0100, L500.4100, L500.4050, L501.2300, L501.5200 ####[facility] [address] [place], [address] ALT [Catalytic activity/Vol] 18 U/L Normal <=34 [facility] Comment on above: Performed By: #### L 100.0100, L500.4100, L500.4050, L501.2300, L501.5200 ####[facility] [address] [place], [address] AST [Catalytic activity/Vol] 24 U/L Normal <=31 [facility] Comment on above: Performed By: #### L 100.0100, L500.4100, L500.4050, L501.2300, L501.5200 ####[facility] [address] [place], [address] Bilirubin [Mass/Vol] 0.50 mg/dL Normal 0.00-1.30 [facility] Comment on above: Performed By: #### L 100.0100, L500.4100, L500.4050, L501.2300, L501.5200 ####[facility] [address] [place], [address] BUN/CRE 19.7 RATIO Normal 10-20 [facility] Comment on above: Performed By: #### L 100.0100, L500.4100, L500.4050, L501.2300, L501.5200 ####[facility] [address] [place], [address] Calcium [Mass/Vol] 8.8 mg/dL Normal 7.6-11.0 [facility] Comment on above: Performed By: #### L 100.0100, L500.4100, L500.4050, L501.2300, L501.5200 ####[facility] [address] [place], [address] Chloride [Moles/Vol] 106 mmol/L Normal 98-108 [facility] Comment on above: Performed By: #### L 100.0100, L500.4100, L500.4050, L501.2300, L501.5200 ####[facility] [address] [place], [address] CO2 [Moles/Vol] 24.3 mmol/L Normal 21.0-32.0 [facility] [facility] Comment on above: Performed By: #### L 100.0100, L500.4100, L500.4050, L501.2300, L501.5200 ####[facility] [address] [place], [address] Creatinine [Mass/Vol] 0.59 mg/dL Low 0.70-1.20 [facility] Comment on above: Performed By: #### L 100.0100, L500.4100, L500.4050, L501.2300, L501.5200 ####[facility] [address] [place], [address] ECRCL 71.70 ml/min Normal 50-250 [facility] Comment on above: Performed By: #### L 100.0100, L500.4100, L500.4050, L501.2300, L501.5200 ####[facility] [address] [place], [address] GAP 9 Normal 5-15 [facility] Comment on above: Performed By: #### L 100.0100, L500.4100, L500.4050, L501.2300, L501.5200 ####[facility] [address] [place], [address] GFR/1.73 sq M.predicted among non-blacks MDRD (S/P/Bld) [Vol rate/Area] 96 mL/min/{1.73_m2} Normal >60 [facility] Comment on above: Result Comment: mL/m in/1.73m2 CKD-EPI Creatinine Equation (2020) Performed By: #### L 100.0100, L500.4100, L500.4050, L501.2300, L501.5200 ####[facility] [address] [place], [address] Globulin (S) [Mass/Vol] 2.8 g/dL Normal 2.2-4.2 [facility] Comment on above: Performed By: #### L 100.0100, L500.4100, L500.4050, L501.2300, L501.5200 ####[facility] [address] [place], [address] Glucose [Mass/Vol] 91 mg/dL Normal 70-99 [facility] Comment on above: Performed By: #### L 100.0100, L500.4100, L500.4050, L501.2300, L501.5200 ####[facility] [address] [place], [address] Potassium [Moles/Vol] 3.8 mmol/L Normal 3.3-5.1 [facility] Comment on above: Performed By: #### L 100.0100, L500.4100, L500.4050, L501.2300, L501.5200 ####[facility] [address] [place], [address] Sodium [Moles/Vol] 140 mmol/L Normal 133-145 [facility] Comment on above: Performed By: #### L 100.0100, L500.4100, L500.4050, L501.2300, L501.5200 ####[facility] [address] [place], [address] T PROT 6.5 g/dL Normal 5.9-8.4 [facility] Comment on above: Performed By: #### L 100.0100, L500.4100, L500.4050, L501.2300, L501.5200 ####[facility] [address] [place], [address] Urea nitrogen [Mass/Vol] 12 mg/dL Normal 4-19 [facility] Comment on above: Performed By: #### L 100.0100, L500.4100, L500.4050, L501.2300, L501.5200 ####[facility] [address] [place], [address] LDL calc ser/plasOrdered By: Sridhar Fay on 02-13-2025 Cholesterol in LDL [Mass/Vol] 132 mg/dL [facility] Comment on above: Oaukrvhszr=629-456 m g/dL & Higher Emmq=778 mg/dL or greater Lipid Profileon 02-13-2025 CHOL:HDL 4.08 Normal [facility] Comment on above: Performed By: #### L 100.0100, L500.4100, L500.4050, L501.2300, L501.5200 ####[facility] [address] [place], [address] Cholesterol [Mass/Vol] 199 mg/dL Normal <=200 [facility] Comment on above: Result Comment: Chol esterol level, Desirable <200 mg/dLBorderline high cholesterol 200-239 mg/dLHigh cholesterol >=240 mg/dLRecommendations of the NCEP Adult Treatment Panel for thefollowing risk-cutoff thresholds for the [place] Americanpulation. Performed By: #### L 100.0100, L500.4100, L500.4050, L501.2300, L501.5200 ####[facility] [address] [place], [address] Cholesterol in HDL [Mass/Vol] 49 mg/dL Normal [facility] Comment on above: Result Comment: Sheryl onal Cholesterol Education Program (NCEP) guidelines:<40 mg/dL: Low HDL-cholesterol (major risk factor for CHD)>= 60 mg/dL: High HDL-cholesterol (negative risk factor forCHD)HDL-cholesterol is affected by a number of factors, e.g.smoking, exercise, hormones, sex and age. Performed By: #### L 100.0100, L500.4100, L500.4050, L501.2300, L501.5200 ####[facility] [address] [place], [address] Cholesterol in LDL [Mass/Vol] 132 mg/dL Normal [facility] Comment on above: Result Comment: Bord tseicd=956-642 mg/dL Higher Ntsj=577 mg/dL or greater Performed By: #### L 100.0100, L500.4100, L500.4050, L501.2300, L501.5200 ####[facility] [address] [place], [address] Cholesterol in VLDL [Mass/Vol] 18 mg/dL Normal 5-40 [facility] Comment on above: Performed By: #### L 100.0100, L500.4100, L500.4050, L501.2300, L501.5200 ####[facility] [address] [place], [address] Triglyceride [Mass/Vol] 89 mg/dL Normal [facility] Comment on above: Result Comment: The drugs N-Acetylcysteine and Metamizole may falselydepress this assay.Normal range: <150 mg/dLBorderline High: 150-199 mg/dLHigh: 200-499 mg/dLVery High: >500 mg/dL Performed By: #### L 100.0100, L500.4100, L500.4050, L501.2300, L501.5200 ####[facility] [address] [place], [place], [id number] Magnesiumon 02-13-2025 Magnesium [Mass/Vol] 2.1 mg/dL Normal 1.5-2.2 [facility] Comment on above: Performed By: #### L 100.0100, L500.4100, L500.4050, L501.2300, L501.5200 ####[facility] [address] [place], [place], [address] Oncology Visit Reporton 01-28 Oncology Visit Report Normal [facility] Phosphoruson 02-13-2025 Phosphate [Mass/Vol] 3.7 mg/dL Normal 2.7-4.5 [facility] Comment on above: Performed By: #### L 100.0100, L500.4100, L500.4050, L501.2300, L501.5200 ####[facility] [address] [place], [place], [address] Screening total cholesterol/ high density lipoprotein (HDL) cholesterol ratioOrdered By: Sridhar Fay on 02-13-2025 Cholesterol.total/Chol esterol in HDL [Mass ratio] 4.08 {ratio} [facility] Serum or plasma cholesterol in HDL measurement (mass/volume)Ordered By: Sridhar Fay on 02-13-2025 Cholesterol in HDL [Mass/Vol] 49 mg/dL >40 [facility] Comment on above: National Cholesterol Education Program (NCEP) guidelines:<40 mg/dL: Low HDL-cholesterol (major risk factor for CHD)>= 60 mg/dL: High HDL-cholesterol (negative risk factor for CHD)HDL-cholesterol is affected by a number of factors, e.g. smoking, exercise, hormones, sex and age. Serum or plasma cholesterol measurement (mass/volume)Ordered By: Sridhar Fay on 02-13-2025 Cholesterol [Mass/Vol] 199 mg/dL <201 [facility] Comment on above: Cholesterol level, D esirable <200 mg/dLBorderline high cholesterol 200-239 mg/dLHigh cholesterol >=240 mg/dLRecommendations of the NCEP Adult Treatment Panel for the following risk-cutoff thresholds for the [place] population. Triglycerides measurementOrd ered By: Sridhar Fay on 02-13-2025 Triglyceride [Mass/Vol] 89 mg/dL <199 [facility] Comment on above: The drugs N-Acetylcy steine and Metamizole may falsely depress this assay. Normal range: <150 mg/dLBorderline High: 150-199 mg/dLHigh: 200-499 mg/dLVery High: >500 mg/dL Cardiology Visit Reporton Cardiology Visit Report Normal [facility] Radiation Oncology Visiton 0 01-27-2025 Radiation Oncology Visit Normal [facility] Radiation Oncology Visit Normal [facility] Oncology Visit Reporton 12-29 Oncology Visit Report Normal [facility] Radiation Oncology Visiton 0 01-22-2025 Radiation Oncology Visit Normal [facility] Radiation Oncology Visiton 0 01-15-2025 Radiation Oncology Visit Normal [facility] Radiation Oncology Visiton 0 01-08-2025 Radiation Oncology Visit Normal [facility] Absolute neutrophil countOrd ered By: Liz Arechiga on 01-02-2025 Neutrophils (Bld) [#/Vol] 4.6 10*3/uL 2.0-7.7 [facility] Anion gap in Serum or Plasma Ordered By: Liz Arechiga on 01-02-2025 Anion gap [Moles/Vol] 11 mmol/L 5-15 [facility] BUN/creatinine ratioOrdered By: Liz Arechiga on 01-02-2025 Urea nitrogen/Creatinine [Mass ratio] 27.4 mg/mg High 10-20 [facility] Basophil percentageOrdered B y: Liz Arechiga on 01-02-2025 Basophils/100 WBC (Bld) 1.4 % High 0-1 [facility] Bilirubin, totalOrdered By: Liz Arechiga on 01-02-2025 Bilirubin [Mass/Vol] 0.47 mg/dL 0.00-1.30 [facility] CBC W/Diff, Automatedon Absolute Lymph 1.09 X10 3/uL Normal 0.83-4.51 [facility] Comment on above: Performed By: #### L 100.0100, L500.4050 ####[facility] [address] [place], [address] Absolute Neut 4.6 X10 3/uL Normal 2.0-7.7 [facility] Comment on above: Performed By: #### L 100.0100, L500.4050 ####[facility] [address] [place], [address] Basophils/100 WBC (Bld) 1.4 % High 0-1 [facility] Comment on above: Performed By: #### L 100.0100, L500.4050 ####[facility] [address] [place], [address] Eosinophils/100 WBC (Bld) 0.9 % Normal 0-5 [facility] Comment on above: Performed By: #### L 100.0100, L500.4050 ####[facility] [address] [place], [address] Erythrocyte distribution width (RBC) [Ratio] 14.6 % Normal 11.6-14.6 [facility] Comment on above: Performed By: #### L 100.0100, L500.4050 ####[facility] [address] [place], [address] Hematocrit (Bld) [Volume fraction] 35.9 % Low 37-47 [facility] Comment on above: Performed By: #### L 100.0100, L500.4050 ####[facility] [address] [place], [address] Hemoglobin (Bld) [Mass/Vol] 11.9 g/dL Low 12.0-15.0 [facility] Comment on above: Performed By: #### L 100.0100, L500.4050 ####[facility] [address] [place], [address] IG% 0.600 Normal 0.0-0.9 [facility] Comment on above: Result Comment: IG% - Immature Granulocytes (promyelocytes, myelocytes andmetamyelocytes) > 1% indicates that a LEFT SHIFT is Present. Performed By: #### L 100.0100, L500.4050 ####[facility] [address] [place], [address] Lymphocytes/100 WBC (Bld) 16.9 % Low 19-41 [facility] Comment on above: Performed By: #### L 100.0100, L500.4050 ####[facility] [address] [place], [address] MCH (RBC) [Entitic mass] 31.2 pg Normal 27.0-32.0 [facility] Comment on above: Performed By: #### L 100.0100, L500.4050 ####[facility] [address] [place], [address] MCHC (RBC) [Mass/Vol] 33.1 g/dL Normal 32-36 [facility] Comment on above: Performed By: #### L 100.0100, L500.4050 ####[facility] [address] [place], [address] MCV (RBC) [Entitic vol] 94.0 fL Normal 81-99 [facility] Comment on above: Performed By: #### L 100.0100, L500.4050 ####[facility] [address] [place], [address] Monocytes/100 WBC (Bld) 8.5 % Normal 0-10 [facility] Comment on above: Performed By: #### L 100.0100, L500.4050 ####[facility] [address] [place], [address] Neutrophils/100 WBC (Bld) 71.7 % High 47-70 [facility] Comment on above: Performed By: #### L 100.0100, L500.4050 ####[facility] [address] [place], [address] Nucleated RBC (Bld) [#/Vol] 0 10*3/uL Normal 0-5 [facility] Comment on above: Performed By: #### L 100.0100, L500.4050 ####[facility] [address] [place], [address] Platelet mean volume (Bld) [Entitic vol] 9.2 fL Normal 6.2-12.0 [facility] Comment on above: Performed By: #### L 100.0100, L500.4050 ####[facility] [address] [place], [address] Platelets (Bld) [#/Vol] 274 10*3/uL Normal 150-450 [facility] Comment on above: Performed By: #### L 100.0100, L500.4050 ####[facility] [address] [place], [address] RBC (Bld) [#/Vol] 3.82 10*6/uL Low 4.2-5.4 [facility] Comment on above: Performed By: #### L 100.0100, L500.4050 ####[facility] [address] [place], [address] RDW SD 50.2 fl High 35.1-43.9 [facility] Comment on above: Performed By: #### L 100.0100, L500.4050 ####[facility] [address] [place], [address] WBC (Bld) [#/Vol] 6.4 10*3/uL Normal 4.4-11.0 [facility] Comment on above: Performed By: #### L 100.0100, L500.4050 ####[facility] [address] [place], [address] Carbon dioxide, total [Moles /volume] in Central venous bloodOrdered By: Liz Arechiga on 01-02-2025 CO2 [Moles/Vol] 23.0 mmol/L 21.0-32.0 [facility] Chloride assayOrdered By: Ty ra Arechiga on 01-02-2025 Chloride [Moles/Vol] 107 mmol/L 98-108 [facility] Comprehensive Metabolic Prof ilon 01-02-2025 Albumin [Mass/Vol] 3.7 g/dL Normal 3.4-4.8 [facility] Comment on above: Performed By: #### L 100.0100, L500.4050 ####[facility] [address] [place], [address] Albumin/Globulin [Mass ratio] 1.4 {ratio} Normal 0.9-2.4 [facility] Comment on above: Performed By: #### L 100.0100, L500.4050 ####[facility] [address] [place], [address] ALK PHOS 91 U/L Normal 35-104 [facility] Comment on above: Performed By: #### L 100.0100, L500.4050 ####[facility] [address] [place], [address] ALT [Catalytic activity/Vol] 17 U/L Normal <=34 [facility] Comment on above: Performed By: #### L 100.0100, L500.4050 ####[facility] [address] [place], [address] AST [Catalytic activity/Vol] 20 U/L Normal <=31 [facility] Comment on above: Performed By: #### L 100.0100, L500.4050 ####[facility] [address] [place], [address] Bilirubin [Mass/Vol] 0.47 mg/dL Normal 0.00-1.30 [facility] Comment on above: Performed By: #### L 100.0100, L500.4050 ####[facility] [address] [place], [address] BUN/CRE 27.4 RATIO High 10-20 [facility] Comment on above: Performed By: #### L 100.0100, L500.4050 ####[facility] [address] [place], [address] Calcium [Mass/Vol] 8.8 mg/dL Normal 7.6-11.0 [facility] Comment on above: Performed By: #### L 100.0100, L500.4050 ####[facility] [address] [place], [address] Chloride [Moles/Vol] 107 mmol/L Normal 98-108 [facility] Comment on above: Performed By: #### L 100.0100, L500.4050 ####[facility] [address] [place], [address] CO2 [Moles/Vol] 23.0 mmol/L Normal 21.0-32.0 [facility] Comment on above: Performed By: #### L 100.0100, L500.4050 ####[facility] [address] [place], [address] Creatinine [Mass/Vol] 0.57 mg/dL Low 0.70-1.20 [facility] Comment on above: Performed By: #### L 100.0100, L500.4050 ####[facility] [address] [place], [address] ECRCL 72.16 ml/min Normal 50-250 [facility] Comment on above: Performed By: #### L 100.0100, L500.4050 ####[facility] [address] [place], [address] GAP 11 Normal 5-15 [facility] Comment on above: Performed By: #### L 100.0100, L500.4050 ####[facility] [address] [place], [address] GFR/1.73 sq M.predicted among non-blacks MDRD (S/P/Bld) [Vol rate/Area] 96 mL/min/{1.73_m2} Normal >60 [facility] Comment on above: Result Comment: mL/m in/1.73m2 CKD-EPI Creatinine Equation (2020) Performed By: #### L 100.0100, L500.4050 ####[facility] [address] [place], [address] Globulin (S) [Mass/Vol] 2.6 g/dL Normal 2.2-4.2 [facility] Comment on above: Performed By: #### L 100.0100, L500.4050 ####[facility] [address] [place], [address] Glucose [Mass/Vol] 108 mg/dL High 70-99 [facility] Comment on above: Performed By: #### L 100.0100, L500.4050 ####[facility] [address] [place], [address] Potassium [Moles/Vol] 3.5 mmol/L Normal 3.3-5.1 [facility] Comment on above: Performed By: #### L 100.0100, L500.4050 ####[facility] [address] [place], [address] Sodium [Moles/Vol] 141 mmol/L Normal 133-145 [facility] Comment on above: Performed By: #### L 100.0100, L500.4050 ####[facility] [address] [place], [address] T PROT 6.3 g/dL Normal 5.9-8.4 [facility] Comment on above: Performed By: #### L 100.0100, L500.4050 ####[facility] [address] [place], [address] Urea nitrogen [Mass/Vol] 16 mg/dL Normal 4-19 [facility] Comment on above: Performed By: #### L 100.0100, L500.4050 ####[facility] [address] [place], [address] Eosinophil percentageOrdered By: Liz Arechiga on 01-02-2025 Eosinophils/100 WBC (Bld) 0.9 % 0-5 [facility] Erythrocyte distribution wid th ratioOrdered By: Liz Arechiga on 01-02-2025 Erythrocyte distribution width (RBC) [Ratio] 14.6 % 11.6-14.6 [facility] Erythrocyte distribution wid th standard deviationOrdered By: Liz Arechiga on 01-02-2025 Erythrocyte distribution width (RBC) [Entitic vol] 50.2 fL High 35.1-43.9 [facility] Estimation of creatinine kal aranceOrdered By: Liz Arechiga on 01-02-2025 Estimated Creatinine Clearance Calc 72.16 ml/min 50-250 [facility] GFR/1.73 sq M.predicted delfina g non-blacks MDRD (S/P/Bld) [Vol rate/Area]Ordered By: Liz Arechiga on 01-02-2025 Estimated GFR (MDRD) Non-Af Amer 96 >60 [facility] Comment on above: mL/min/1.73m2 CKD-EP I Creatinine Equation (2020) Hematocrit Auto (Bld) [Volum e fraction]Ordered By: Liz Arechiga on 01-02-2025 Hematocrit (Bld) [Volume fraction] 35.9 % Low 37-47 [facility] Hemoglobin measurementOrdere d By: Liz Arechiga on 01-02-2025 Hemoglobin (Bld) [Mass/Vol] 11.9 g/dL Low 12.0-15.0 [facility] Immature granulocytes/100 WB C Auto (Bld)Ordered By: Liz Arechiga on 01-02-2025 Immature granulocytes/100 WBC (Bld) 0.600 % 0.0-0.9 [facility] Comment on above: IG% - Immature Granu locytes (promyelocytes, myelocytes and metamyelocytes) > 1% indicates that a LEFT SHIFT is Present. Laboratory - Chemistry and C hemistry - challengeOrdered By: Liz Arechiga on 01-02-2025 AST [Catalytic activity/Vol] 20 U/L <32 [facility] Lymphocytes Auto (Unsp spec) [#/Vol]Ordered By: Liz Arechiga on 01-02-2025 Lymphocytes (Bld) [#/Vol] 1.09 10*3/uL 0.83-4.51 [facility] Lymphocytes/100 WBC Auto (Un sp spec)Ordered By: Liz Arechiga on 01-02-2025 Lymphocytes/100 WBC (Bld) 16.9 % Low 19-41 [facility] MCV (mean corpuscular volume ) determinationOrdered By: Liz Arechiga on 01-02-2025 MCV (RBC) [Entitic vol] 94.0 fL 81-99 [facility] Mean corpuscular hemoglobin (MCH) determinationOrdered By: Liz Arechiga on 01-02-2025 MCH (RBC) [Entitic mass] 31.2 pg 27.0-32.0 [facility] Mean corpuscular hemoglobin concentration (MCHC) determinationOrdered By: Liz Arechiga on 01-02-2025 MCHC (RBC) [Mass/Vol] 33.1 g/dL 32-36 [facility] Mean platelet volume determi nationOrdered By: Liz Arechiga on 01-02-2025 Platelet mean volume (Bld) [Entitic vol] 9.2 fL 6.2-12.0 [facility] Monocyte percentageOrdered B y: Liz Arechiga on 01-02-2025 Monocytes/100 WBC (Bld) 8.5 % 0-10 [facility] Neutrophil percentageOrdered By: Liz Arechiga on 01-02-2025 Neutrophils/100 WBC (Bld) 71.7 % High 47-70 [facility] Nucleated red blood cell per centageOrdered By: Liz Arechiga on 01-02-2025 Nucleated RBC/100 WBC (Bld) [Ratio] 0 % 0-5 [facility] Oncology Visit Reporton 03-0 Oncology Visit Report Normal [facility] Platelet countOrdered By: Conor Arechiga on 01-02-2025 Platelets (Bld) [#/Vol] 274 10*3/uL 150-450 [facility] Potassium (Unsp spec) [Mass/ Vol]Ordered By: Liz Arechiga on 01-02-2025 Potassium [Moles/Vol] 3.5 mmol/L 3.3-5.1 [facility] RBC Auto (Bld) [#/Vol]Ordere d By: Liz Arechiga on 01-02-2025 RBC (Bld) [#/Vol] 3.82 10*6/uL Low 4.2-5.4 [facility] Serum creatinine measurement (mass/volume)Ordered By: Liz Arechiga on 01-02-2025 Creatinine [Mass/Vol] 0.57 mg/dL Low 0.70-1.20 [facility] Serum globulin measurementOr dered By: Liz Arechiga on 01-02-2025 Globulin (S) [Mass/Vol] 2.6 g/dL 2.2-4.2 [facility] Serum glucose measurement (m ass/volume)Ordered By: Liz Arechiga on 01-02-2025 Glucose [Mass/Vol] 108 mg/dL High 70-99 [facility] Serum or plasma alanine denise otransferase (ALT) measurementOrdered By: Liz Arechiga on 01-02-2025 ALT [Catalytic activity/Vol] 17 U/L <35 [facility] Serum or plasma albumin salvador urement (mass/volume)Ordered By: Liz Arechiga on 01-02-2025 Albumin [Mass/Vol] 3.7 g/dL 3.4-4.8 [facility] Serum or plasma albumin/glob ulin mass ratioOrdered By: Liz Arechiga on 01-02-2025 Albumin/Globulin [Mass ratio] 1.4 {ratio} 0.9-2.4 [facility] Serum or plasma alkaline giuliano sphatase measurementOrdered By: Liz Arechiga on 01-02-2025 ALP [Catalytic activity/Vol] 91 U/L 35-104 [facility] Serum or plasma calcium salvador urement (mass/volume)Ordered By: Liz Arechiga on 01-02-2025 Calcium [Mass/Vol] 8.8 mg/dL 7.6-11.0 [facility] Serum or plasma urea nitroge n measurement (mass/volume)Ordered By: Liz Arechiga on 01-02-2025 Urea nitrogen [Mass/Vol] 16 mg/dL 4-19 [facility] Sodium levelOrdered By: Liz Arechiga on 01-02-2025 Sodium [Moles/Vol] 141 mmol/L 133-145 [facility] Total proteinOrdered By: Shilpi Arechiga on 01-02-2025 Protein [Mass/Vol] 6.3 g/dL 5.9-8.4 [facility] White blood cell (WBC) count Ordered By: Liz Arechiga on 01-02-2025 WBC (Bld) [#/Vol] 6.4 10*3/uL 4.4-11.0 [facility] Limited echocardiogram repor tOrdered By: Dusty Valdez on 12-31-2024 Study report [facility] [address] [place] [address] ONC Echo, Limited Study 12/30/24 0939 MR#: [id number] Acct: [id number] Name: REBA BECKFORD Rep #:[id number] : [id number] From: Dusty Valdez MD Attending Dr: Dr. Arturo Olivas MD Status: REG CLI Ordering Dr: Arturo Olivas MD Date: 12/30/24 Location: [facility] Sex: F C Admitted: Reason For Study Reason For Study: ANTINEPOPLASTIC CARCINOMA Procedure This was a limited 2D transthoracic echocardiogram. Myocardial strain analysis was performed in this exam to aid in the assessment of cardiac function. Exam performed in department. Left Ventricle Normal LV size. The global longitudinal strain = -19.3 % (normal). The estimatedejection fraction is 60 %. No regional wall motion abnormalities noted. Right Ventricle Normal RV size. Normal systolic function. Atria The left and right atria are normal. Mitral Valve The mitral valve is structurally normal. No prolapse or stenosis seen. Tricuspid Valve Normal tricuspid valve. Aortic Valve Trisinus/trileaflet aortic valve. Pulmonic Valve Normal pulmonic valve. Great Vessels Normal sized aortic root. Pericardium/Pleural No pericardial effusion. MMode/2D Measurements & Calculations LVIDd: 4.9 cm IVSd: 0.91 cm LAV(MOD-bp): 42.4 ml LVIDs: 2.5 cm LVPWd: 0.96 cm LAV(MOD-bp) Indexed: 21.5 ml/m2 RVDd: 3.3 cm FS: 49.3 % LAV(MOD-sp2): 33.1 ml LAV(MOD-sp4): 39.4 ml SV(MOD-sp4): 33.6 ml LVAd ap4: 22.9 cm2 LVAd ap2: 21.9 cm2 LVLd ap4: 7.5 cm LVLd ap2: 7.0 cm SI(MOD-sp4): 17.1 ml/m2 EDV(MOD-sp4): 60.6 ml EDV(MOD-sp2): 58.3 ml EDV(sp4-el): 59.6 ml EDV(sp2-el): 57.8 ml LVAs ap4: 13.6 cm2 LVAs ap2: 12.2 cm2 LVLs ap4: 6.2 cm LVLs ap2: 6.0 cm ESV(MOD-sp4): 27.0 ml ESV(MOD-sp2): 22.1 ml ESV(sp4-el): 25.1 ml ESV(sp2-el): 21.0 ml EF(MOD-sp4): 55.5 % EF(MOD-sp2): 62.0 % EF(sp4-el): 57.9 % SV(MOD-sp2): 36.1 ml SV(sp4-el): 34.5 ml LA A4 area: 15.9 cm2 SI(MOD-sp2): 18.4 ml/m2 LA dimension(2D): 3.8 cm RA A4 area: 10.5 cm2 ECHO/ONC Echo, Limited Study Interpretation Summary The estimated ejection fraction is 60 %. The global longitudinal strain = -19.3 % (normal). Structually normal valves. Ordering Physician: Arturo Olivas Referring Physician: Arturo Olivas Performed By: Widder, Celina, RCS 12/31/24911 Date _ Dusty Valdez MD CC: Dr. Arturo Olivas MD; Dr. 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, [address] CA,Total 9.2 mg/dL Normal 8.5-10.1 [facility] Comment on above: Performed By: #### L 500.2500, L100.0100 ####[facility] [address] [place], [address] Chloride [Moles/Vol] 110 mmol/L High 98-107 [facility] Comment on above: Performed By: #### L 500.2500, L100.0100 ####[facility] [address] [place], [address] CO2 [Moles/Vol] 26.0 mmol/L Normal 21.0-32.0 [facility] Comment on above: Performed By: #### L 500.2500, L100.0100 ####[facility] [address] [place], [address] Creatinine [Mass/Vol] 0.52 mg/dL Low 0.55-1.02 [facility] Comment on above: Result Comment: The validity of the calculated GFR GFRAA in patients over70 years has not been determined. Clinical correlation isessential. Performed By: #### L 500.2500, L100.0100 ####[facility] [address] [place], [address] ECRCL 72.26 ml/min Normal [facility] Comment on above: Performed By: #### L 500.2500, L100.0100 ####[facility] [address] [place], [address] EST GFR - AA 151 mL/min Normal >60 [facility] Comment on above: Result Comment: Afri can Bulgarian GFR Calc Performed By: #### L 500.2500, L100.0100 ####[facility] [address] [place], [address] GAP 5 Normal 5-15 [facility] Comment on above: Performed By: #### L 500.2500, L100.0100 ####[facility] [address] [place], [address] GFR/1.73 sq M.predicted among non-blacks MDRD (S/P/Bld) [Vol rate/Area] 125 mL/min/{1.73_m2} Normal >60 [facility] Comment on above: Result Comment: Non- GFR Calc Performed By: #### L 500.2500, L100.0100 ####[facility] [address] [place], [address] Glucose [Mass/Vol] 94 mg/dL Normal 74-106 [facility] Comment on above: Performed By: #### L 500.2500, L100.0100 ####[facility] [address] [place], [address] Potassium [Moles/Vol] 3.8 mmol/L Normal 3.5-5.1 [facility] Comment on above: Performed By: #### L 500.2500, L100.0100 ####[facility] [address] [place], [address] Sodium [Moles/Vol] 140 mmol/L Normal 136-145 [facility] Comment on above: Performed By: #### L 500.2500, L100.0100 ####[facility] [address] [place], [address] Urea nitrogen [Mass/Vol] 12 mg/dL Normal 7-18 [facility] Comment on above: Performed By: #### L 500.2500, L100.0100 ####[facility] [address] [place], [address] CBC W/Diff, Automatedon 02-11 01-2024 Absolute Lymph 0.77 X10 3/uL Low 0.83-4.51 [facility] Comment on above: Performed By: #### L 500.2500, L100.0100 ####[facility] [address] [place], [address] Absolute Neut 1.5 X10 3/uL Low 2.0-7.7 [facility] Comment on above: Performed By: #### L 500.2500, L100.0100 ####[facility] [address] [place], [address] Basophils/100 WBC (Bld) 2.2 % High 0-1 [facility] Comment on above: Performed By: #### L 500.2500, L100.0100 ####[facility] [address] [place], [address] Eosinophils/100 WBC (Bld) 3.0 % Normal 0-5 [facility] Comment on above: Performed By: #### L 500.2500, L100.0100 ####[facility] [address] [place], [address] Erythrocyte distribution width (RBC) [Ratio] 14.7 % High 11.6-14.6 [facility] Comment on above: Performed By: #### L 500.2500, L100.0100 ####[facility] [address] [place], [address] Hematocrit (Bld) [Volume fraction] 33.6 % Low 37-47 [facility] Comment on above: Performed By: #### L 500.2500, L100.0100 ####[facility] [address] [place], [address] Hemoglobin (Bld) [Mass/Vol] 11.3 g/dL Low 12.0-15.0 [facility] Comment on above: Performed By: #### L 500.2500, L100.0100 ####[facility] [address] [place], [address] IG% 3.000 High 0.0-0.9 [facility] Comment on above: Result Comment: IG% - Immature Granulocytes (promyelocytes, myelocytes andmetamyelocytes) > 1% indicates that a LEFT SHIFT is Present. Performed By: #### L 500.2500, L100.0100 ####[facility] [address] [place], [address] Lymphocytes/100 WBC (Bld) 28.5 % Normal 19-41 [facility] Comment on above: Performed By: #### L 500.2500, L100.0100 ####[facility] [address] [place], [address] MCH (RBC) [Entitic mass] 31.3 pg Normal 27.0-32.0 [facility] Comment on above: Performed By: #### L 500.2500, L100.0100 ####[facility] [address] [place], [address] MCHC (RBC) [Mass/Vol] 33.6 g/dL Normal 32-36 [facility] Comment on above: Performed By: #### L 500.2500, L100.0100 ####[facility] [address] [place], [address] MCV (RBC) [Entitic vol] 93.1 fL Normal 81-99 [facility] Comment on above: Performed By: #### L 500.2500, L100.0100 ####[facility] [address] [place], [address] Monocytes/100 WBC (Bld) 7.4 % Normal 0-10 [facility] Comment on above: Performed By: #### L 500.2500, L100.0100 ####[facility] [address] [place], [address] Neutrophils/100 WBC (Bld) 55.9 % Normal 47-70 [facility] Comment on above: Performed By: #### L 500.2500, L100.0100 ####[facility] [address] [place], [address] Nucleated RBC (Bld) [#/Vol] 0 10*3/uL Normal 0-5 [facility] Comment on above: Performed By: #### L 500.2500, L100.0100 ####[facility] [address] [place], [address] Platelet mean volume (Bld) [Entitic vol] 9.2 fL Normal 6.2-12.0 [facility] Comment on above: Performed By: #### L 500.2500, L100.0100 ####[facility] [address] [place], [address] Platelets (Bld) [#/Vol] 250 10*3/uL Normal 150-450 [facility] Comment on above: Performed By: #### L 500.2500, L100.0100 ####[facility] [address] [place], [address] RBC (Bld) [#/Vol] 3.61 10*6/uL Low 4.2-5.4 [facility] Comment on above: Performed By: #### L 500.2500, L100.0100 ####[facility] [address] [place], [address] RDW SD 50.2 fl High 35.1-43.9 [facility] Comment on above: Performed By: #### L 500.2500, L100.0100 ####[facility] [address] [place], [address] WBC (Bld) [#/Vol] 2.7 10*3/uL Low 4.4-11.0 [facility] Comment on above: Performed By: #### L 500.2500, L100.0100 ####[facility] [address] [place], [address] Estimated glomerular filtrat ion rate (GFR) AmericanOrdered By: Arturo Olivas on 12-12-2024 Estimated GFR (MDRD) Amer 151 mL/min >60 [facility] Comment on above: GFR Calc Oncology Visit Reporton 11-30 Oncology Visit Report Normal [facility] Basic Metabolic Profile (BMP )on 12-05-2024 BUN/CRE 30.4 RATIO High 10-20 [facility] Comment on above: Performed By: #### L 500.2500, L100.0100 ####[facility] [address] [place], [address] CA,Total 9.3 mg/dL Normal 8.5-10.1 [facility] Comment on above: Performed By: #### L 500.2500, L100.0100 ####[facility] [address] [place], [address] Chloride [Moles/Vol] 110 mmol/L High 98-107 [facility] Comment on above: Performed By: #### L 500.2500, L100.0100 ####[facility] [address] [place], [address] CO2 [Moles/Vol] 26.0 mmol/L Normal 21.0-32.0 [facility] Comment on above: Performed By: #### L 500.2500, L100.0100 ####[facility] [address] [place], [address] Creatinine [Mass/Vol] 0.53 mg/dL Low 0.55-1.02 [facility] Comment on above: Result Comment: The validity of the calculated GFR GFRAA in patients over70 years has not been determined. Clinical correlation isessential. Performed By: #### L 500.2500, L100.0100 ####[facility] [address] [place], [address] ECRCL 72.52 ml/min Normal [facility] Comment on above: Performed By: #### L 500.2500, L100.0100 ####[facility] [address] [place], [address] EST GFR - AA 147 mL/min Normal >60 [facility] Comment on above: Result Comment: Afri can Bulgarian GFR Calc Performed By: #### L 500.2500, L100.0100 ####[facility] [address] [place], [address] GAP 6 Normal 5-15 [facility] Comment on above: Performed By: #### L 500.2500, L100.0100 ####[facility] [address] [place], [address] GFR/1.73 sq M.predicted among non-blacks MDRD (S/P/Bld) [Vol rate/Area] 121 mL/min/{1.73_m2} Normal >60 [facility] Comment on above: Result Comment: Non- GFR Calc Performed By: #### L 500.2500, L100.0100 ####[facility] [address] [place], [address] Glucose [Mass/Vol] 97 mg/dL Normal 74-106 [facility] Comment on above: Performed By: #### L 500.2500, L100.0100 ####[facility] [address] [place], [address] Potassium [Moles/Vol] 3.6 mmol/L Normal 3.5-5.1 [facility] Comment on above: Performed By: #### L 500.2500, L100.0100 ####[facility] [address] [place], [address] Sodium [Moles/Vol] 142 mmol/L Normal 136-145 [facility] Comment on above: Performed By: #### L 500.2500, L100.0100 ####[facility] [address] [place], [address] Urea nitrogen [Mass/Vol] 16 mg/dL Normal 7-18 [facility] Comment on above: Performed By: #### L 500.2500, L100.0100 ####[facility] [address] [place], [address] CBC W/Diff, Automatedon 02-0 6-2024 Absolute Lymph 0.87 X10 3/uL Normal 0.83-4.51 [facility] Comment on above: Performed By: #### L 500.2500, L100.0100 ####[facility] [address] [place], [address] Absolute Neut 3.3 X10 3/uL Normal 2.0-7.7 [facility] Comment on above: Performed By: #### L 500.2500, L100.0100 ####[facility] [address] [place], [address] Basophils/100 WBC (Bld) 1.1 % High 0-1 [facility] Comment on above: Performed By: #### L 500.2500, L100.0100 ####[facility] [address] [place], [address] Eosinophils/100 WBC (Bld) 1.7 % Normal 0-5 [facility] Comment on above: Performed By: #### L 500.2500, L100.0100 ####[facility] [address] [place], [address] Erythrocyte distribution width (RBC) [Ratio] 15.1 % High 11.6-14.6 [facility] Comment on above: Performed By: #### L 500.2500, L100.0100 ####[facility] [address] [place], [address] Hematocrit (Bld) [Volume fraction] 33.9 % Low 37-47 [facility] Comment on above: Performed By: #### L 500.2500, L100.0100 ####[facility] [address] [place], [address] Hemoglobin (Bld) [Mass/Vol] 11.2 g/dL Low 12.0-15.0 [facility] Comment on above: Performed By: #### L 500.2500, L100.0100 ####[facility] [address] [place], [address] IG% 1.100 High 0.0-0.9 [facility] Comment on above: Result Comment: IG% - Immature Granulocytes (promyelocytes, myelocytes andmetamyelocytes) > 1% indicates that a LEFT SHIFT is Present. Performed By: #### L 500.2500, L100.0100 ####[facility] [address] [place], [address] Lymphocytes/100 WBC (Bld) 18.7 % Low 19-41 [facility] Comment on above: Performed By: #### L 500.2500, L100.0100 ####[facility] [address] [place], [address] MCH (RBC) [Entitic mass] 30.7 pg Normal 27.0-32.0 [facility] Comment on above: Performed By: #### L 500.2500, L100.0100 ####[facility] [address] [place], [address] MCHC (RBC) [Mass/Vol] 33.0 g/dL Normal 32-36 [facility] Comment on above: Performed By: #### L 500.2500, L100.0100 ####[facility] [address] [place], [address] MCV (RBC) [Entitic vol] 92.9 fL Normal 81-99 [facility] Comment on above: Performed By: #### L 500.2500, L100.0100 ####[facility] [address] [place], [address] Monocytes/100 WBC (Bld) 6.2 % Normal 0-10 [facility] Comment on above: Performed By: #### L 500.2500, L100.0100 ####[facility] [address] [place], [address] Neutrophils/100 WBC (Bld) 71.2 % High 47-70 [facility] Comment on above: Performed By: #### L 500.2500, L100.0100 ####[facility] [address] [place], [address] Nucleated RBC (Bld) [#/Vol] 0 10*3/uL Normal 0-5 [facility] Comment on above: Performed By: #### L 500.2500, L100.0100 ####[facility] [address] [place], [address] Platelet mean volume (Bld) [Entitic vol] 9.2 fL Normal 6.2-12.0 [facility] Comment on above: Performed By: #### L 500.2500, L100.0100 ####[facility] [address] [place], [address] Platelets (Bld) [#/Vol] 285 10*3/uL Normal 150-450 [facility] Comment on above: Performed By: #### L 500.2500, L100.0100 ####[facility] [address] [place], [address] RBC (Bld) [#/Vol] 3.65 10*6/uL Low 4.2-5.4 [facility] Comment on above: Performed By: #### L 500.2500, L100.0100 ####[facility] [address] [place], [address] RDW SD 51.5 fl High 35.1-43.9 [facility] Comment on above: Performed By: #### L 500.2500, L100.0100 ####[facility] [address] [place], [address] WBC (Bld) [#/Vol] 4.7 10*3/uL Normal 4.4-11.0 [facility] Comment on above: Performed By: #### L 500.2500, L100.0100 ####[facility] [address] [place], [address] Oncology Visit Reporton -0 Oncology Visit Report Normal [facility] CBC W/Diff, Automatedon 3 Absolute Lymph 1.23 X10 3/uL Normal 0.83-4.51 [facility] Comment on above: Performed By: #### L 500.4050, L100.0100, L501.5200 ####[facility] [address] [place], [address] Absolute Neut 7.6 X10 3/uL Normal 2.0-7.7 [facility] Comment on above: Performed By: #### L 500.4050, L100.0100, L501.5200 ####[facility] [address] [place], [address] Basophils/100 WBC (Bld) 1.0 % Normal 0-1 [facility] Comment on above: Performed By: #### L 500.4050, L100.0100, L501.5200 ####[facility] [address] [place], [address] Eosinophils/100 WBC (Bld) 0.5 % Normal 0-5 [facility] Comment on above: Performed By: #### L 500.4050, L100.0100, L501.5200 ####[facility] [address] [place], [address] Erythrocyte distribution width (RBC) [Ratio] 15.9 % High 11.6-14.6 [facility] Comment on above: Performed By: #### L 500.4050, L100.0100, L501.5200 ####[facility] [address] [place], [address] Hematocrit (Bld) [Volume fraction] 34.6 % Low 37-47 [facility] Comment on above: Performed By: #### L 500.4050, L100.0100, L501.5200 ####[facility] [address] [place], [address] Hemoglobin (Bld) [Mass/Vol] 11.7 g/dL Low 12.0-15.0 [facility] Comment on above: Performed By: #### L 500.4050, L100.0100, L501.5200 ####[facility] [address] [place], [address] IG% 1.100 High 0.0-0.9 [facility] Comment on above: Result Comment: IG% - Immature Granulocytes (promyelocytes, myelocytes andmetamyelocytes) > 1% indicates that a LEFT SHIFT is Present. Performed By: #### L 500.4050, L100.0100, L501.5200 ####[facility] [address] [place], [address] Lymphocytes/100 WBC (Bld) 12.8 % Low 19-41 [facility] Comment on above: Performed By: #### L 500.4050, L100.0100, L501.5200 ####[facility] [address] [place], [address] MCH (RBC) [Entitic mass] 31.1 pg Normal 27.0-32.0 [facility] Comment on above: Performed By: #### L 500.4050, L100.0100, L501.5200 ####[facility] [address] [place], [address] MCHC (RBC) [Mass/Vol] 33.8 g/dL Normal 32-36 [facility] Comment on above: Performed By: #### L 500.4050, L100.0100, L501.5200 ####[facility] [address] [place], [address] MCV (RBC) [Entitic vol] 92.0 fL Normal 81-99 [facility] Comment on above: Performed By: #### L 500.4050, L100.0100, L501.5200 ####[facility] [address] [place], [address] Monocytes/100 WBC (Bld) 5.3 % Normal 0-10 [facility] Comment on above: Performed By: #### L 500.4050, L100.0100, L501.5200 ####[facility] [address] [place], [address] Neutrophils/100 WBC (Bld) 79.3 % High 47-70 [facility] Comment on above: Performed By: #### L 500.4050, L100.0100, L501.5200 ####[facility] [address] [place], [address] Nucleated RBC (Bld) [#/Vol] 0 10*3/uL Normal 0-5 [facility] Comment on above: Performed By: #### L 500.4050, L100.0100, L501.5200 ####[facility] [address] [place], [address] Platelet mean volume (Bld) [Entitic vol] 9.3 fL Normal 6.2-12.0 [facility] Comment on above: Performed By: #### L 500.4050, L100.0100, L501.5200 ####[facility] [address] [place], [address] Platelets (Bld) [#/Vol] 182 10*3/uL Normal 150-450 [facility] Comment on above: Performed By: #### L 500.4050, L100.0100, L501.5200 ####[facility] [address] [place], [address] RBC (Bld) [#/Vol] 3.76 10*6/uL Low 4.2-5.4 [facility] Comment on above: Performed By: #### L 500.4050, L100.0100, L501.5200 ####[facility] [address] [place], [address] RDW SD 52.5 fl High 35.1-43.9 [facility] Comment on above: Performed By: #### L 500.4050, L100.0100, L501.5200 ####[facility] [address] [place], [address] WBC (Bld) [#/Vol] 9.6 10*3/uL Normal 4.4-11.0 [facility] Comment on above: Performed By: #### L 500.4050, L100.0100, L501.5200 ####[facility] [address] [place], [address] Comprehensive Metabolic [facility] ilon 11-28-2024 Albumin [Mass/Vol] 3.0 g/dL Low 3.2-5.0 [facility] Comment on above: Performed By: #### L 500.4050, L100.0100, L501.5200 ####[facility] [address] [place], [address] Albumin/Globulin [Mass ratio] 0.9 {ratio} Normal 0.9-2.4 [facility] Comment on above: Performed By: #### L 500.4050, L100.0100, L501.5200 ####[facility] [address] [place], [address] ALK P 124 U/L High 45-117 [facility] Comment on above: Performed By: #### L 500.4050, L100.0100, L501.5200 ####[facility] [address] [place], [address] ALT [Catalytic activity/Vol] 26 U/L Normal 13-56 [facility] Comment on above: Performed By: #### L 500.4050, L100.0100, L501.5200 ####[facility] [address] [place], [address] AST [Catalytic activity/Vol] 16 U/L Normal 15-37 [facility] Comment on above: Performed By: #### L 500.4050, L100.0100, L501.5200 ####[facility] [address] [place], [address] Bilirubin [Mass/Vol] 0.60 mg/dL Normal 0.20-1.00 [facility] Comment on above: Result Comment: For patients on eltrombopag therapy, use of Dimension Rose[place] TBIL is not recommended. Performed By: #### L 500.4050, L100.0100, L501.5200 ####[facility] [address] [place], [address] BUN/CRE 27.7 RATIO High 10-20 [facility] Comment on above: Performed By: #### L 500.4050, L100.0100, L501.5200 ####[facility] [address] [place], [address] CA,Total 8.6 mg/dL Normal 8.5-10.1 [facility] Comment on above: Performed By: #### L 500.4050, L100.0100, L501.5200 ####[facility] [address] [place], [address] Chloride [Moles/Vol] 109 mmol/L High 98-107 [facility] Comment on above: Performed By: #### L 500.4050, L100.0100, L501.5200 ####[facility] [address] [place], [address] CO2 [Moles/Vol] 27.0 mmol/L Normal 21.0-32.0 [facility] Comment on above: Performed By: #### L 500.4050, L100.0100, L501.5200 ####[facility] [address] [place], [address] Creatinine [Mass/Vol] 0.54 mg/dL Low 0.55-1.02 [facility] Comment on above: Result Comment: The validity of the calculated GFR GFRAA in patients over70 years has not been determined. Clinical correlation isessential. Performed By: #### L 500.4050, L100.0100, L501.5200 ####[facility] [address] [place], [address] ECRCL 72.34 ml/min Normal [facility] Comment on above: Performed By: #### L 500.4050, L100.0100, L501.5200 ####[facility] [id number] [place], [address] EST GFR - AA 142 mL/min Normal >60 [facility] Comment on above: Result Comment: Afri can [place] GFR Calc Performed By: #### L 500.4050, L100.0100, L501.5200 ####[facility] [id number] [place], [address] GAP 4 Low 5-15 [facility] Comment on above: Performed By: #### L 500.4050, L100.0100, L501.5200 ####[facility] [address] [place], [address] GFR/1.73 sq M.predicted among non-blacks MDRD (S/P/Bld) [Vol rate/Area] 117 mL/min/{1.73_m2} Normal >60 [facility] Comment on above: Result Comment: Non- GFR Calc Performed By: #### L 500.4050, L100.0100, L501.5200 ####[facility] [address] [place], [address] Globulin (S) [Mass/Vol] 3.5 g/dL Normal 2.2-4.2 [facility] Comment on above: Performed By: #### L 500.4050, L100.0100, L501.5200 ####[facility] [address] [place], [address] Glucose [Mass/Vol] 96 mg/dL Normal 74-106 [facility] Comment on above: Performed By: #### L 500.4050, L100.0100, L501.5200 ####[facility] [address] [place], [address] Potassium [Moles/Vol] 4.1 mmol/L Normal 3.5-5.1 [facility] Comment on above: Performed By: #### L 500.4050, L100.0100, L501.5200 ####[facility] [address] [place], [address] Sodium [Moles/Vol] 140 mmol/L Normal 136-145 [facility] Comment on above: Performed By: #### L 500.4050, L100.0100, L501.5200 ####[facility] [address] [place], [address] T PROT 6.5 g/dL Normal 6.4-8.2 [facility] Comment on above: Performed By: #### L 500.4050, L100.0100, L501.5200 ####[facility] [address] [place], [address] Urea nitrogen [Mass/Vol] 15 mg/dL Normal 7-18 [facility] Comment on above: Performed By: #### L 500.4050, L100.0100, L501.5200 ####[facility] [address] [place], [address] Magnesium measurementOrdered By: Arturo Olivas on 11-28-2024 Magnesium [Mass/Vol] 2.5 mg/dL Normal 1.6-2.6 [facility] Comment on above: Performed By: #### L 500.4050, L100.0100, L501.5200 ####[facility] [address] [place], [address] Oncology Visit Reporton 11-01 Oncology Visit Report Normal [facility] Cardiology Visit Reporton Cardiology Visit Report Normal [facility] Basic Metabolic Profile (BMP )on 11-14-2024 BUN/CRE 32.2 RATIO High 10-20 [facility] Comment on above: Performed By: #### L 100.0100, L500.2500 ####[facility] [address] [place], [address] CA,Total 9.2 mg/dL Normal 8.5-10.1 [facility] Comment on above: Performed By: #### L 100.0100, L500.2500 ####[facility] [address] [place], [address] Chloride [Moles/Vol] 108 mmol/L High 98-107 [facility] Comment on above: Performed By: #### L 100.0100, L500.2500 ####[facility] [address] [place], [address] CO2 [Moles/Vol] 25.0 mmol/L Normal 21.0-32.0 [facility] Comment on above: Performed By: #### L 100.0100, L500.2500 ####[facility] [address] [place], [address] Creatinine [Mass/Vol] 0.47 mg/dL Low 0.55-1.02 [facility] Comment on above: Result Comment: The validity of the calculated GFR GFRAA in patients over70 years has not been determined. Clinical correlation isessential. Performed By: #### L 100.0100, L500.2500 ####[facility] [address] [place], [address] ECRCL 72.67 ml/min Normal [facility] Comment on above: Performed By: #### L 100.0100, L500.2500 ####[facility] [address] [place], [address] EST GFR - AA 169 mL/min Normal >60 [facility] Comment on above: Result Comment: Afri can Bulgarian GFR Calc Performed By: #### L 100.0100, L500.2500 ####[facility] [address] [place], [address] GAP 7 Normal 5-15 [facility] Comment on above: Performed By: #### L 100.0100, L500.2500 ####[facility] [address] [place], [address] GFR/1.73 sq M.predicted among non-blacks MDRD (S/P/Bld) [Vol rate/Area] 140 mL/min/{1.73_m2} Normal >60 [facility] Comment on above: Result Comment: Non- GFR Calc Performed By: #### L 100.0100, L500.2500 ####[facility] [address] [place], [address] Glucose [Mass/Vol] 98 mg/dL Normal 74-106 [facility] Comment on above: Performed By: #### L 100.0100, L500.2500 ####[facility] [address] [place], [address] Potassium [Moles/Vol] 4.0 mmol/L Normal 3.5-5.1 [facility] Comment on above: Performed By: #### L 100.0100, L500.2500 ####[facility] [address] [place], [address] Sodium [Moles/Vol] 140 mmol/L Normal 136-145 [facility] Comment on above: Performed By: #### L 100.0100, L500.2500 ####[facility] [address] [place], [address] Urea nitrogen [Mass/Vol] 15 mg/dL Normal 7-18 [facility] Comment on above: Performed By: #### L 100.0100, L500.2500 ####[facility] [address] [place], [address] CBC W/Diff, Automatedon 01-1 Absolute Lymph 0.90 X10 3/uL Normal 0.83-4.51 [facility] Comment on above: Performed By: #### L 100.0100, L500.2500 ####[facility] [address] [place], [address] Absolute Neut 1.6 X10 3/uL Low 2.0-7.7 [facility] Comment on above: Performed By: #### L 100.0100, L500.2500 ####[facility] [address] [place], [address] Basophils/100 WBC (Bld) 2.7 % High 0-1 [facility] Comment on above: Performed By: #### L 100.0100, L500.2500 ####[facility] [address] [place], [address] Eosinophils/100 WBC (Bld) 3.4 % Normal 0-5 [facility] Comment on above: Performed By: #### L 100.0100, L500.2500 ####[facility] [address] [place], [address] Erythrocyte distribution width (RBC) [Ratio] 15.6 % High 11.6-14.6 [facility] Comment on above: Performed By: #### L 100.0100, L500.2500 ####[facility] [address] [place], [address] Hematocrit (Bld) [Volume fraction] 34.2 % Low 37-47 [facility] Comment on above: Performed By: #### L 100.0100, L500.2500 ####[facility] [address] [place], [address] Hemoglobin (Bld) [Mass/Vol] 11.4 g/dL Low 12.0-15.0 [facility] Comment on above: Performed By: #### L 100.0100, L500.2500 ####[facility] [address] [place], [address] IG% 2.400 High 0.0-0.9 [facility] Comment on above: Result Comment: IG% - Immature Granulocytes (promyelocytes, myelocytes andmetamyelocytes) > 1% indicates that a LEFT SHIFT is Present. Performed By: #### L 100.0100, L500.2500 ####[facility] [address] [place], [address] Lymphocytes/100 WBC (Bld) 30.4 % Normal 19-41 [facility] Comment on above: Performed By: #### L 100.0100, L500.2500 ####[facility] [address] [place], [address] MCH (RBC) [Entitic mass] 30.6 pg Normal 27.0-32.0 [facility] Comment on above: Performed By: #### L 100.0100, L500.2500 ####[facility] [address] [place], [address] MCHC (RBC) [Mass/Vol] 33.3 g/dL Normal 32-36 [facility] Comment on above: Performed By: #### L 100.0100, L500.2500 ####[facility] [address] [place], [address] MCV (RBC) [Entitic vol] 91.7 fL Normal 81-99 [facility] Comment on above: Performed By: #### L 100.0100, L500.2500 ####[facility] [address] [place], [address] Monocytes/100 WBC (Bld) 8.8 % Normal 0-10 [facility] Comment on above: Performed By: #### L 100.0100, L500.2500 ####[facility] [address] [place], [address] Neutrophils/100 WBC (Bld) 52.3 % Normal 47-70 [facility] Comment on above: Performed By: #### L 100.0100, L500.2500 ####[facility] [address] [place], [address] Nucleated RBC (Bld) [#/Vol] 0 10*3/uL Normal 0-5 [facility] Comment on above: Performed By: #### L 100.0100, L500.2500 ####[facility] [address] [place], [address] Platelet mean volume (Bld) [Entitic vol] 9.0 fL Normal 6.2-12.0 [facility] Comment on above: Performed By: #### L 100.0100, L500.2500 ####[facility] [address] [place], [address] Platelets (Bld) [#/Vol] 241 10*3/uL Normal 150-450 [facility] Comment on above: Performed By: #### L 100.0100, L500.2500 ####[facility] [address] [place], [address] RBC (Bld) [#/Vol] 3.73 10*6/uL Low 4.2-5.4 [facility] Comment on above: Performed By: #### L 100.0100, L500.2500 ####[facility] [address] [place], [address] RDW SD 51.2 fl High 35.1-43.9 [facility] Comment on above: Performed By: #### L 100.0100, L500.2500 ####[facility] [address] [place], [address] WBC (Bld) [#/Vol] 3.0 10*3/uL Low 4.4-11.0 [facility] Comment on above: Performed By: #### L 100.0100, L500.2500 ####[facility] [address] [place], [address] Oncology Visit Reporton 10-30 Oncology Visit Report Normal [facility] Basic Metabolic Profile (BMP )on 2024 BUN/CRE 30.7 RATIO High 10-20 [facility] Comment on above: Performed By: #### L 500.2500, L100.0100 ####[facility] [address] [place], [address] CA,Total 9.2 mg/dL Normal 8.5-10.1 [facility] Comment on above: Performed By: #### L 500.2500, L100.0100 ####[facility] [address] [place], [address] Chloride [Moles/Vol] 109 mmol/L High 98-107 [facility] Comment on above: Performed By: #### L 500.2500, L100.0100 ####[facility] [address] [place], [address] CO2 [Moles/Vol] 27.0 mmol/L Normal 21.0-32.0 [facility] Comment on above: Performed By: #### L 500.2500, L100.0100 ####[facility] [address] [place], [address] Creatinine [Mass/Vol] 0.52 mg/dL Low 0.55-1.02 [facility] Comment on above: Result Comment: The validity of the calculated GFR GFRAA in patients over70 years has not been determined. Clinical correlation isessential. Performed By: #### L 500.2500, L100.0100 ####[facility] [address] [place], [address] ECRCL 72.67 ml/min Normal [facility] Comment on above: Performed By: #### L 500.2500, L100.0100 ####[facility] [address] [place], [address] EST GFR - AA 148 mL/min Normal >60 [facility] Comment on above: Result Comment: Afri can Bulgarian GFR Calc Performed By: #### L 500.2500, L100.0100 ####[facility] [address] [place], [address] GAP 4 Low 5-15 [facility] Comment on above: Performed By: #### L 500.2500, L100.0100 ####[facility] [address] [place], [address] GFR/1.73 sq M.predicted among non-blacks MDRD (S/P/Bld) [Vol rate/Area] 123 mL/min/{1.73_m2} Normal >60 [facility] Comment on above: Result Comment: Non- GFR Calc Performed By: #### L 500.2500, L100.0100 ####[facility] [address] [place], [address] Glucose [Mass/Vol] 108 mg/dL High 74-106 [facility] Comment on above: Result Comment: Fast ing Glucose result from 100 to 125 mg/dLsuggests IMPAIRED HOMEOSTASIS per A.D.A. criteria. Performed By: #### L 500.2500, L100.0100 ####[facility] [address] [place], [address] Potassium [Moles/Vol] 3.6 mmol/L Normal 3.5-5.1 [facility] Comment on above: Performed By: #### L 500.2500, L100.0100 ####[facility] [address] [place], [address] Sodium [Moles/Vol] 140 mmol/L Normal 136-145 [facility] Comment on above: Performed By: #### L 500.2500, L100.0100 ####[facility] [address] [place], [address] Urea nitrogen [Mass/Vol] 16 mg/dL Normal 7-18 [facility] Comment on above: Performed By: #### L 500.2500, L100.0100 ####[facility] [address] [place], [address] CBC W/Diff, Automatedon 01-0 9-2025 Absolute Lymph 0.90 X10 3/uL Normal 0.83-4.51 [facility] Comment on above: Performed By: #### L 500.2500, L100.0100 ####[facility] [address] [place], [address] Absolute Neut 3.4 X10 3/uL Normal 2.0-7.7 [facility] Comment on above: Performed By: #### L 500.2500, L100.0100 ####[facility] [address] [place], [address] Basophils/100 WBC (Bld) 1.9 % High 0-1 [facility] Comment on above: Performed By: #### L 500.2500, L100.0100 ####[facility] [address] [place], [address] Eosinophils/100 WBC (Bld) 1.4 % Normal 0-5 [facility] Comment on above: Performed By: #### L 500.2500, L100.0100 ####[facility] [address] [place], [address] Erythrocyte distribution width (RBC) [Ratio] 15.4 % High 11.6-14.6 [facility] Comment on above: Performed By: #### L 500.2500, L100.0100 ####[facility] [address] [place], [address] Hematocrit (Bld) [Volume fraction] 33.6 % Low 37-47 [facility] Comment on above: Performed By: #### L 500.2500, L100.0100 ####[facility] [address] [place], [address] Hemoglobin (Bld) [Mass/Vol] 11.2 g/dL Low 12.0-15.0 [facility] Comment on above: Performed By: #### L 500.2500, L100.0100 ####[facility] [address] [place], [address] IG% 1.200 High 0.0-0.9 [facility] Comment on above: Result Comment: IG% - Immature Granulocytes (promyelocytes, myelocytes andmetamyelocytes) > 1% indicates that a LEFT SHIFT is Present. Performed By: #### L 500.2500, L100.0100 ####[facility] [address] [place], [address] Lymphocytes/100 WBC (Bld) 18.6 % Low 19-41 [facility] Comment on above: Performed By: #### L 500.2500, L100.0100 ####[facility] [address] [place], [address] MCH (RBC) [Entitic mass] 30.6 pg Normal 27.0-32.0 [facility] Comment on above: Performed By: #### L 500.2500, L100.0100 ####[facility] [address] [place], [address] MCHC (RBC) [Mass/Vol] 33.3 g/dL Normal 32-36 [facility] Comment on above: Performed By: #### L 500.2500, L100.0100 ####[facility] [address] [place], [address] MCV (RBC) [Entitic vol] 91.8 fL Normal 81-99 [facility] Comment on above: Performed By: #### L 500.2500, L100.0100 ####[facility] [address] [place], [address] Monocytes/100 WBC (Bld) 7.8 % Normal 0-10 [facility] Comment on above: Performed By: #### L 500.2500, L100.0100 ####[facility] [address] [place], [address] Neutrophils/100 WBC (Bld) 69.1 % Normal 47-70 [facility] Comment on above: Performed By: #### L 500.2500, L100.0100 ####[facility] [address] [place], [address] Nucleated RBC (Bld) [#/Vol] 0 10*3/uL Normal 0-5 [facility] Comment on above: Performed By: #### L 500.2500, L100.0100 ####[facility] [address] [place], [address] Platelet mean volume (Bld) [Entitic vol] 9.0 fL Normal 6.2-12.0 [facility] Comment on above: Performed By: #### L 500.2500, L100.0100 ####[facility] [address] [place], [address] Platelets (Bld) [#/Vol] 329 10*3/uL Normal 150-450 [facility] Comment on above: Performed By: #### L 500.2500, L100.0100 ####[facility] [address] [place], [address] RBC (Bld) [#/Vol] 3.66 10*6/uL Low 4.2-5.4 [facility] Comment on above: Performed By: #### L 500.2500, L100.0100 ####[facility] [address] [place], [address] RDW SD 51.0 fl High 35.1-43.9 [facility] Comment on above: Performed By: #### L 500.2500, L100.0100 ####[facility] [address] [place], [address] WBC (Bld) [#/Vol] 4.9 10*3/uL Normal 4.4-11.0 [facility] Comment on above: Performed By: #### L 500.2500, L100.0100 ####[facility] [address] [place], [address] ONC Echo Completeon 11-07-19 25 ONC Echo Complete Normal [facility] CBC W/Diff, Automatedon Absolute Lymph 1.14 X10 3/uL Normal 0.83-4.51 [facility] Comment on above: Performed By: #### L 501.5200, L500.4050, L100.0100 ####[facility] [address] [place], [address] Absolute Neut 7.6 X10 3/uL Normal 2.0-7.7 [facility] Comment on above: Performed By: #### L 501.5200, L500.4050, L100.0100 ####[facility] [address] [place], [address] Basophils/100 WBC (Bld) 1.1 % High 0-1 [facility] Comment on above: Performed By: #### L 501.5200, L500.4050, L100.0100 ####[facility] [address] [place], [address] Eosinophils/100 WBC (Bld) 0.3 % Normal 0-5 [facility] Comment on above: Performed By: #### L 501.5200, L500.4050, L100.0100 ####[facility] [address] [place], [address] Erythrocyte distribution width (RBC) [Ratio] 15.8 % High 11.6-14.6 [facility] Comment on above: Performed By: #### L 501.5200, L500.4050, L100.0100 ####[facility] [address] [place], [address] Hematocrit (Bld) [Volume fraction] 35.0 % Low 37-47 [facility] Comment on above: Performed By: #### L 501.5200, L500.4050, L100.0100 ####[facility] [address] [place], [address] Hemoglobin (Bld) [Mass/Vol] 11.5 g/dL Low 12.0-15.0 [facility] Comment on above: Performed By: #### L 501.5200, L500.4050, L100.0100 ####[facility] [address] [place], [address] IG% 1.300 High 0.0-0.9 [facility] Comment on above: Result Comment: IG% - Immature Granulocytes (promyelocytes, myelocytes andmetamyelocytes) > 1% indicates that a LEFT SHIFT is Present. Performed By: #### L 501.5200, L500.4050, L100.0100 ####[facility] [address] [place], [address] Lymphocytes/100 WBC (Bld) 11.9 % Low 19-41 [facility] Comment on above: Performed By: #### L 501.5200, L500.4050, L100.0100 ####[facility] [address] [place], [address] MCH (RBC) [Entitic mass] 30.2 pg Normal 27.0-32.0 [facility] Comment on above: Performed By: #### L 501.5200, L500.4050, L100.0100 ####[facility] [address] [place], [address] MCHC (RBC) [Mass/Vol] 32.9 g/dL Normal 32-36 [facility] Comment on above: Performed By: #### L 501.5200, L500.4050, L100.0100 ####[facility] [address] [place], [address] MCV (RBC) [Entitic vol] 91.9 fL Normal 81-99 [facility] Comment on above: Performed By: #### L 501.5200, L500.4050, L100.0100 ####[facility] [address] [place], [address] Monocytes/100 WBC (Bld) 5.7 % Normal 0-10 [facility] Comment on above: Performed By: #### L 501.5200, L500.4050, L100.0100 ####[facility] [address] [place], [address] Neutrophils/100 WBC (Bld) 79.7 % High 47-70 [facility] Comment on above: Performed By: #### L 501.5200, L500.4050, L100.0100 ####[facility] [address] [place], [address] Nucleated RBC (Bld) [#/Vol] 0 10*3/uL Normal 0-5 [facility] Comment on above: Performed By: #### L 501.5200, L500.4050, L100.0100 ####[facility] [address] [place], [address] Platelet mean volume (Bld) [Entitic vol] 9.7 fL Normal 6.2-12.0 [facility] Comment on above: Performed By: #### L 501.5200, L500.4050, L100.0100 ####[facility] [address] [place], [address] Platelets (Bld) [#/Vol] 186 10*3/uL Normal 150-450 [facility] Comment on above: Performed By: #### L 501.5200, L500.4050, L100.0100 ####[facility] [address] [place], [address] RBC (Bld) [#/Vol] 3.81 10*6/uL Low 4.2-5.4 [facility] Comment on above: Performed By: #### L 501.5200, L500.4050, L100.0100 ####[facility] [address] [place], [address] RDW SD 51.1 fl High 35.1-43.9 [facility] Comment on above: Performed By: #### L 501.5200, L500.4050, L100.0100 ####[facility] [address] [place], [address] WBC (Bld) [#/Vol] 9.6 10*3/uL Normal 4.4-11.0 [facility] Comment on above: Performed By: #### L 501.5200, L500.4050, L100.0100 ####[facility] [address] [place], [address] Comprehensive Metabolic Prof iaon 10-31-2024 Albumin [Mass/Vol] 3.0 g/dL Low 3.2-5.0 [facility] Comment on above: Performed By: #### L 501.5200, L500.4050, L100.0100 ####[facility] [address] [place], [address] Albumin/Globulin [Mass ratio] 0.8 {ratio} Low 0.9-2.4 [facility] Comment on above: Performed By: #### L 501.5200, L500.4050, L100.0100 ####[facility] [address] [place], [address] ALK P 132 U/L High 45-117 [facility] Comment on above: Performed By: #### L 501.5200, L500.4050, L100.0100 ####[facility] [address] [place], [address] ALT [Catalytic activity/Vol] 31 U/L Normal 13-56 [facility] Comment on above: Performed By: #### L 501.5200, L500.4050, L100.0100 ####[facility] [address] [place], [address] AST [Catalytic activity/Vol] 17 U/L Normal 15-37 [facility] Comment on above: Performed By: #### L 501.5200, L500.4050, L100.0100 ####[facility] [address] [place], [address] Bilirubin [Mass/Vol] 0.60 mg/dL Normal 0.20-1.00 [facility] Comment on above: Result Comment: For patients on eltrombopag therapy, use of Dimension [place] TBIL is not recommended. Performed By: #### L 501.5200, L500.4050, L100.0100 ####[facility] [address] [place], [address] BUN/CRE 24.4 RATIO High 10-20 [facility] Comment on above: Performed By: #### L 501.5200, L500.4050, L100.0100 ####[facility] [address] [place], [address] CA,Total 8.8 mg/dL Normal 8.5-10.1 [facility] Comment on above: Performed By: #### L 501.5200, L500.4050, L100.0100 ####[facility] [address] [place], [address] Chloride [Moles/Vol] 108 mmol/L High 98-107 [facility] Comment on above: Performed By: #### L 501.5200, L500.4050, L100.0100 ####[facility] [address] [place], [address] CO2 [Moles/Vol] 26.0 mmol/L Normal 21.0-32.0 [facility] Comment on above: Performed By: #### L 501.5200, L500.4050, L100.0100 ####[facility] [address] [place], [address] Creatinine [Mass/Vol] 0.57 mg/dL Normal 0.55-1.02 [facility] Comment on above: Result Comment: The validity of the calculated GFR GFRAA in patients over70 years has not been determined. Clinical correlation isessential. Performed By: #### L 501.5200, L500.4050, L100.0100 ####[facility] [address] [place], [address] ECRCL 72.85 ml/min Normal [facility] Comment on above: Performed By: #### L 501.5200, L500.4050, L100.0100 ####[facility] [address] [place], [address] EST GFR - AA 133 mL/min Normal >60 [facility] Comment on above: Result Comment: Afri can Bulgarian GFR Calc Performed By: #### L 501.5200, L500.4050, L100.0100 ####[facility] [address] [place], [address] GAP 5 Normal 5-15 [facility] Comment on above: Performed By: #### L 501.5200, L500.4050, L100.0100 ####[facility] [address] [place], [address] GFR/1.73 sq M.predicted among non-blacks MDRD (S/P/Bld) [Vol rate/Area] 110 mL/min/{1.73_m2} Normal >60 [facility] Comment on above: Result Comment: Non- GFR Calc Performed By: #### L 501.5200, L500.4050, L100.0100 ####[facility] [address] [place], [address] Globulin (S) [Mass/Vol] 3.6 g/dL Normal 2.2-4.2 [facility] Comment on above: Performed By: #### L 501.5200, L500.4050, L100.0100 ####[facility] [address] [place], [address] Glucose [Mass/Vol] 90 mg/dL Normal 74-106 [facility] Comment on above: Performed By: #### L 501.5200, L500.4050, L100.0100 ####[facility] [address] [place], [address] Potassium [Moles/Vol] 4.0 mmol/L Normal 3.5-5.1 [facility] Comment on above: Performed By: #### L 501.5200, L500.4050, L100.0100 ####[facility] [address] [place], [address] Sodium [Moles/Vol] 139 mmol/L Normal 136-145 [facility] Comment on above: Performed By: #### L 501.5200, L500.4050, L100.0100 ####[facility] [address] [place], [address] T PROT 6.6 g/dL Normal 6.4-8.2 [facility] Comment on above: Performed By: #### L 501.5200, L500.4050, L100.0100 ####[facility] [address] [place], [address] Urea nitrogen [Mass/Vol] 14 mg/dL Normal 7-18 [facility] Comment on above: Performed By: #### L 501.5200, L500.4050, L100.0100 ####[facility] [address] [place], [address] Magnesiumon 10-31-2024 Magnesium [Mass/Vol] 2.5 mg/dL Normal 1.6-2.6 [facility] Comment on above: Performed By: #### L 501.5200, L500.4050, L100.0100 ####[facility] [address] [place], [address] Oncology Visit Reporton Oncology Visit Report Normal [facility] Basic Metabolic Profile (BMP )on 10-17-2024 BUN/CRE 23.9 RATIO High 10-20 [facility] Comment on above: Performed By: #### L 100.0100, L500.2500 ####[facility] [address] [place], [address] CA,Total 8.9 mg/dL Normal 8.5-10.1 [facility] Comment on above: Performed By: #### L 100.0100, L500.2500 ####[facility] [address] [place], [address] Chloride [Moles/Vol] 110 mmol/L High 98-107 [facility] Comment on above: Performed By: #### L 100.0100, L500.2500 ####[facility] [address] [place], [address] CO2 [Moles/Vol] 26.0 mmol/L Normal 21.0-32.0 [facility] Comment on above: Performed By: #### L 100.0100, L500.2500 ####[facility] [address] [place], [address] Creatinine [Mass/Vol] 0.58 mg/dL Normal 0.55-1.02 [facility] Comment on above: Result Comment: The validity of the calculated GFR GFRAA in patients over70 years has not been determined. Clinical correlation isessential. Performed By: #### L 100.0100, L500.2500 ####[facility] [address] [place], [address] ECRCL 72.85 ml/min Normal [facility] Comment on above: Performed By: #### L 100.0100, L500.2500 ####[facility] [address] [place], [address] EST GFR - AA 130 mL/min Normal >60 [facility] Comment on above: Result Comment: Afri can Bulgarian GFR Calc Performed By: #### L 100.0100, L500.2500 ####[facility] [address] [place], [address] GAP 4 Low 5-15 [facility] Comment on above: Performed By: #### L 100.0100, L500.2500 ####[facility] [address] [place], [address] GFR/1.73 sq M.predicted among non-blacks MDRD (S/P/Bld) [Vol rate/Area] 108 mL/min/{1.73_m2} Normal >60 [facility] Comment on above: Result Comment: Non- GFR Calc Performed By: #### L 100.0100, L500.2500 ####[facility] [address] [place], [address] Glucose [Mass/Vol] 91 mg/dL Normal 74-106 [facility] Comment on above: Performed By: #### L 100.0100, L500.2500 ####[facility] [address] [place], [address] Potassium [Moles/Vol] 3.4 mmol/L Low 3.5-5.1 [facility] Comment on above: Performed By: #### L 100.0100, L500.2500 ####[facility] [address] [place], [address] Sodium [Moles/Vol] 140 mmol/L Normal 136-145 [facility] Comment on above: Performed By: #### L 100.0100, L500.2500 ####[facility] [address] [place], [address] Urea nitrogen [Mass/Vol] 14 mg/dL Normal 7-18 [facility] Comment on above: Performed By: #### L 100.0100, L500.2500 ####[facility] [address] [place], [address] CBC W/Diff, Automatedon 12- Absolute Lymph 0.78 X10 3/uL Low 0.83-4.51 [facility] Comment on above: Performed By: #### L 100.0100, L500.2500 ####[facility] [address] [place], [address] Absolute Neut 1.0 X10 3/uL Low 2.0-7.7 [facility] Comment on above: Performed By: #### L 100.0100, L500.2500 ####[facility] [address] [place], [address] Basophils/100 WBC (Bld) 2.3 % High 0-1 [facility] Comment on above: Performed By: #### L 100.0100, L500.2500 ####[facility] [address] [place], [address] Eosinophils/100 WBC (Bld) 2.7 % Normal 0-5 [facility] Comment on above: Performed By: #### L 100.0100, L500.2500 ####[facility] [address] [place], [address] Erythrocyte distribution width (RBC) [Ratio] 13.5 % Normal 11.6-14.6 [facility] Comment on above: Performed By: #### L 100.0100, L500.2500 ####[facility] [address] [place], [address] Hematocrit (Bld) [Volume fraction] 35.2 % Low 37-47 [facility] Comment on above: Performed By: #### L 100.0100, L500.2500 ####[facility] [address] [place], [address] Hemoglobin (Bld) [Mass/Vol] 12.4 g/dL Normal 12.0-15.0 [facility] Comment on above: Performed By: #### L 100.0100, L500.2500 ####[facility] [address] [place], [address] IG% 3.200 High 0.0-0.9 [facility] Comment on above: Result Comment: IG% - Immature Granulocytes (promyelocytes, myelocytes andmetamyelocytes) > 1% indicates that a LEFT SHIFT is Present. Performed By: #### L 100.0100, L500.2500 ####[facility] [address] [place], [address] Lymphocytes/100 WBC (Bld) 35.6 % Normal 19-41 [facility] Comment on above: Performed By: #### L 100.0100, L500.2500 ####[facility] [address] [place], [address] MCH (RBC) [Entitic mass] 31.2 pg Normal 27.0-32.0 [facility] Comment on above: Performed By: #### L 100.0100, L500.2500 ####[facility] [address] [place], [address] MCHC (RBC) [Mass/Vol] 35.2 g/dL Normal 32-36 [facility] Comment on above: Performed By: #### L 100.0100, L500.2500 ####[facility] [address] [place], [address] MCV (RBC) [Entitic vol] 88.4 fL Normal 81-99 [facility] Comment on above: Performed By: #### L 100.0100, L500.2500 ####[facility] [address] [place], [address] Monocytes/100 WBC (Bld) 8.7 % Normal 0-10 [facility] Comment on above: Performed By: #### L 100.0100, L500.2500 ####[facility] [address] [place], [address] Neutrophils/100 WBC (Bld) 47.5 % Normal 47-70 [facility] Comment on above: Performed By: #### L 100.0100, L500.2500 ####[facility] [address] [place], [address] Nucleated RBC (Bld) [#/Vol] 0 10*3/uL Normal 0-5 [facility] Comment on above: Performed By: #### L 100.0100, L500.2500 ####[facility] [address] [place], [address] Platelet mean volume (Bld) [Entitic vol] 8.8 fL Normal 6.2-12.0 [facility] Comment on above: Performed By: #### L 100.0100, L500.2500 ####[facility] [address] [place], [address] Platelets (Bld) [#/Vol] 199 10*3/uL Normal 150-450 [facility] Comment on above: Performed By: #### L 100.0100, L500.2500 ####[facility] [address] [place], [address] RBC (Bld) [#/Vol] 3.98 10*6/uL Low 4.2-5.4 [facility] Comment on above: Performed By: #### L 100.0100, L500.2500 ####[facility] [address] [place], [address] RDW SD 43.1 fl Normal 35.1-43.9 [facility] Comment on above: Performed By: #### L 100.0100, L500.2500 ####[facility] [address] [place], [address] WBC (Bld) [#/Vol] 2.2 10*3/uL Low 4.4-11.0 [facility] Comment on above: Performed By: #### L 100.0100, L500.2500 ####[facility] [address] [place], [address] Magnesiumon 10-17-2024 Magnesium [Mass/Vol] 2.3 mg/dL Normal 1.6-2.6 [facility] Comment on above: Order Comment: MAHESH Jeong ADD TO BLOOD IN LAB. THANK YOU!! Performed By: #### L 501.5200 ####[facility] [address] [place], [address] Oncology Visit Reporton 09-29 Oncology Visit Report Normal [facility] Basic Metabolic Profile (BMP )on 10-10-2024 BUN/CRE 32.2 RATIO High 10-20 [facility] Comment on above: Performed By: #### L 500.2500, L100.0100 ####[facility] [address] [place], [address] CA,Total 9.0 mg/dL Normal 8.5-10.1 [facility] Comment on above: Performed By: #### L 500.2500, L100.0100 ####[facility] [address] [place], [address] Chloride [Moles/Vol] 111 mmol/L High 98-107 [facility] Comment on above: Performed By: #### L 500.2500, L100.0100 ####[facility] [address] [place], [address] CO2 [Moles/Vol] 26.0 mmol/L Normal 21.0-32.0 [facility] Comment on above: Performed By: #### L 500.2500, L100.0100 ####[facility] [address] [place], [address] Creatinine [Mass/Vol] 0.56 mg/dL Normal 0.55-1.02 [facility] Comment on above: Result Comment: The validity of the calculated GFR GFRAA in patients over70 years has not been determined. Clinical correlation isessential. Performed By: #### L 500.2500, L100.0100 ####[facility] [address] [place], [address] ECRCL 73.31 ml/min Normal [facility] Comment on above: Performed By: #### L 500.2500, L100.0100 ####[facility] [address] [place], [address] EST GFR - AA 137 mL/min Normal >60 [facility] Comment on above: Result Comment: Afri can Bulgarian GFR Calc Performed By: #### L 500.2500, L100.0100 ####[facility] [address] [place], [address] GAP 4 Low 5-15 [facility] Comment on above: Performed By: #### L 500.2500, L100.0100 ####[facility] [address] [place], [address] GFR/1.73 sq M.predicted among non-blacks MDRD (S/P/Bld) [Vol rate/Area] 113 mL/min/{1.73_m2} Normal >60 [facility] Comment on above: Result Comment: Non- GFR Calc Performed By: #### L 500.2500, L100.0100 ####[facility] [address] [place], [address] Glucose [Mass/Vol] 92 mg/dL Normal 74-106 [facility] Comment on above: Performed By: #### L 500.2500, L100.0100 ####[facility] [address] [place], [address] Potassium [Moles/Vol] 3.9 mmol/L Normal 3.5-5.1 [facility] Comment on above: Performed By: #### L 500.2500, L100.0100 ####[facility] [address] [place], [address] Sodium [Moles/Vol] 142 mmol/L Normal 136-145 [facility] Comment on above: Performed By: #### L 500.2500, L100.0100 ####[facility] [address] [place], [address] Urea nitrogen [Mass/Vol] 18 mg/dL Normal 7-18 [facility] Comment on above: Performed By: #### L 500.2500, L100.0100 ####[facility] [address] [place], [address] CBC W/Diff, Automatedon 09-29 Absolute Lymph 0.97 X10 3/uL Normal 0.83-4.51 [facility] Comment on above: Performed By: #### L 500.2500, L100.0100 ####[facility] [address] [place], [address] Absolute Neut 2.5 X10 3/uL Normal 2.0-7.7 [facility] Comment on above: Performed By: #### L 500.2500, L100.0100 ####[facility] [address] [place], [address] Basophils/100 WBC (Bld) 1.8 % High 0-1 [facility] Comment on above: Performed By: #### L 500.2500, L100.0100 ####[facility] [address] [place], [address] Eosinophils/100 WBC (Bld) 3.0 % Normal 0-5 [facility] Comment on above: Performed By: #### L 500.2500, L100.0100 ####[facility] [address] [place], [address] Erythrocyte distribution width (RBC) [Ratio] 13.4 % Normal 11.6-14.6 [facility] Comment on above: Performed By: #### L 500.2500, L100.0100 ####[facility] [address] [place], [address] Hematocrit (Bld) [Volume fraction] 35.6 % Low 37-47 [facility] Comment on above: Performed By: #### L 500.2500, L100.0100 ####[facility] [address] [place], [address] Hemoglobin (Bld) [Mass/Vol] 12.4 g/dL Normal 12.0-15.0 [facility] Comment on above: Performed By: #### L 500.2500, L100.0100 ####[facility] [address] [place], [address] IG% 1.800 High 0.0-0.9 [facility] Comment on above: Result Comment: IG% - Immature Granulocytes (promyelocytes, myelocytes andmetamyelocytes) > 1% indicates that a LEFT SHIFT is Present. Performed By: #### L 500.2500, L100.0100 ####[facility] [address] [place], [address] Lymphocytes/100 WBC (Bld) 24.5 % Normal 19-41 [facility] Comment on above: Performed By: #### L 500.2500, L100.0100 ####[facility] [address] [place], [address] MCH (RBC) [Entitic mass] 30.7 pg Normal 27.0-32.0 [facility] Comment on above: Performed By: #### L 500.2500, L100.0100 ####[facility] [address] [place], [address] MCHC (RBC) [Mass/Vol] 34.8 g/dL Normal 32-36 [facility] Comment on above: Performed By: #### L 500.2500, L100.0100 ####[facility] [address] [place], [address] MCV (RBC) [Entitic vol] 88.1 fL Normal 81-99 [facility] Comment on above: Performed By: #### L 500.2500, L100.0100 ####[facility] [address] [place], [address] Monocytes/100 WBC (Bld) 6.3 % Normal 0-10 [facility] Comment on above: Performed By: #### L 500.2500, L100.0100 ####[facility] [address] [place], [address] Neutrophils/100 WBC (Bld) 62.6 % Normal 47-70 [facility] Comment on above: Performed By: #### L 500.2500, L100.0100 ####[facility] [address] [place], [address] Nucleated RBC (Bld) [#/Vol] 0 10*3/uL Normal 0-5 [facility] Comment on above: Performed By: #### L 500.2500, L100.0100 ####[facility] [address] [place], [address] Platelet mean volume (Bld) [Entitic vol] 9.4 fL Normal 6.2-12.0 [facility] Comment on above: Performed By: #### L 500.2500, L100.0100 ####[facility] [address] [place], [address] Platelets (Bld) [#/Vol] 188 10*3/uL Normal 150-450 [facility] Comment on above: Performed By: #### L 500.2500, L100.0100 ####[facility] [address] [place], [address] RBC (Bld) [#/Vol] 4.04 10*6/uL Low 4.2-5.4 [facility] Comment on above: Performed By: #### L 500.2500, L100.0100 ####[facility] [address] [place], [address] RDW SD 43.4 fl Normal 35.1-43.9 [facility] Comment on above: Performed By: #### L 500.2500, L100.0100 ####[facility] [address] [place], [address] WBC (Bld) [#/Vol] 4.0 10*3/uL Low 4.4-11.0 [facility] Comment on above: Performed By: #### L 500.2500, L100.0100 ####[facility] [address] [place], [address] Oncology Visit Reporton 09-29 Oncology Visit Report Normal [facility] Radiation Oncology Visiton 1 12-08-2023 Radiation Oncology Visit Normal [facility] Magnesiumon 10-05-2024 Magnesium [Mass/Vol] 2.1 mg/dL Normal 1.6-2.6 [facility] Comment on above: Performed By: #### L 100.0100, L501.5200 ####[facility] [address] [place], [address] CBC W/Diff, Automatedon 12- Absolute Lymph 1.14 X10 3/uL Normal 0.83-4.51 [facility] Comment on above: Performed By: #### L 500.4050, L100.0100 ####[facility] [address] [place], [address] Absolute Neut 4.5 X10 3/uL Normal 2.0-7.7 [facility] Comment on above: Performed By: #### L 500.4050, L100.0100 ####[facility] [address] [place], [address] Basophils/100 WBC (Bld) 0.9 % Normal 0-1 [facility] Comment on above: Performed By: #### L 500.4050, L100.0100 ####[facility] [address] [place], [address] Eosinophils/100 WBC (Bld) 1.1 % Normal 0-5 [facility] Comment on above: Performed By: #### L 500.4050, L100.0100 ####[facility] [address] [place], [address] Erythrocyte distribution width (RBC) [Ratio] 14.0 % Normal 11.6-14.6 [facility] Comment on above: Performed By: #### L 500.4050, L100.0100 ####[facility] [address] [place], [address] Hematocrit (Bld) [Volume fraction] 37.2 % Normal 37-47 [facility] Comment on above: Performed By: #### L 500.4050, L100.0100 ####[facility] [address] [place], [address] Hemoglobin (Bld) [Mass/Vol] 12.6 g/dL Normal 12.0-15.0 [facility] Comment on above: Performed By: #### L 500.4050, L100.0100 ####[facility] [address] [place], [address] IG% 1.500 High 0.0-0.9 [facility] Comment on above: Result Comment: IG% - Immature Granulocytes (promyelocytes, myelocytes andmetamyelocytes) > 1% indicates that a LEFT SHIFT is Present. Performed By: #### L 500.4050, L100.0100 ####[facility] [address] [place], [address] Lymphocytes/100 WBC (Bld) 17.6 % Low 19-41 [facility] Comment on above: Performed By: #### L 500.4050, L100.0100 ####[facility] [address] [place], [address] MCH (RBC) [Entitic mass] 29.9 pg Normal 27.0-32.0 [facility] Comment on above: Performed By: #### L 500.4050, L100.0100 ####[facility] [address] [place], [address] MCHC (RBC) [Mass/Vol] 33.9 g/dL Normal 32-36 [facility] Comment on above: Performed By: #### L 500.4050, L100.0100 ####[facility] [address] [place], [address] MCV (RBC) [Entitic vol] 88.4 fL Normal 81-99 [facility] Comment on above: Performed By: #### L 500.4050, L100.0100 ####[facility] [address] [place], [address] Monocytes/100 WBC (Bld) 9.1 % Normal 0-10 [facility] Comment on above: Performed By: #### L 500.4050, L100.0100 ####[facility] [address] [place], [address] Neutrophils/100 WBC (Bld) 69.8 % Normal 47-70 [facility] Comment on above: Performed By: #### L 500.4050, L100.0100 ####[facility] [address] [place], [address] Nucleated RBC (Bld) [#/Vol] 0 10*3/uL Normal 0-5 [facility] Comment on above: Performed By: #### L 500.4050, L100.0100 ####[facility] [address] [place], [address] Platelet mean volume (Bld) [Entitic vol] 9.2 fL Normal 6.2-12.0 [facility] Comment on above: Performed By: #### L 500.4050, L100.0100 ####[facility] [address] [place], [address] Platelets (Bld) [#/Vol] 216 10*3/uL Normal 150-450 [facility] Comment on above: Performed By: #### L 500.4050, L100.0100 ####[facility] [address] [place], [address] RBC (Bld) [#/Vol] 4.21 10*6/uL Normal 4.2-5.4 [facility] Comment on above: Performed By: #### L 500.4050, L100.0100 ####[facility] [address] [place], [address] RDW SD 44.2 fl High 35.1-43.9 [facility] Comment on above: Performed By: #### L 500.4050, L100.0100 ####[facility] [address] [place], [address] WBC (Bld) [#/Vol] 6.5 10*3/uL Normal 4.4-11.0 [facility] Comment on above: Performed By: #### L 500.4050, L100.0100 ####[facility] [address] [place], [address] Absolute Neut Normal 2.0-7.7 [facility] Comment on above: Result Comment: NO S PECIMEN Performed By: #### L 100.0100, L501.5200 ####[facility] [address] [place], [address] HCT Normal 37-47 [facility] Comment on above: Result Comment: NO S PECIMEN Performed By: #### L 100.0100, L501.5200 ####[facility] [address] [place], [address] HGB Normal 12.0-15.0 [facility] Comment on above: Result Comment: NO S PECIMEN Performed By: #### L 100.0100, L501.5200 ####[facility] [address] [place], [address] MCH Normal 27.0-32.0 [facility] Comment on above: Result Comment: NO S PECIMEN Performed By: #### L 100.0100, L501.5200 ####[facility] [address] [place], [address] MCHC Normal 32-36 [facility] Comment on above: Result Comment: NO S PECIMEN Performed By: #### L 100.0100, L501.5200 ####[facility] [address] [place], [address] MCV Normal 81-99 [facility] Comment on above: Result Comment: NO S PECIMEN Performed By: #### L 100.0100, L501.5200 ####[facility] [address] [place], [address] NEUT% Normal 47-70 [facility] Comment on above: Result Comment: NO S PECIMEN Performed By: #### L 100.0100, L501.5200 ####[facility] [address] [place], [address] PLT Normal 150-450 [facility] Comment on above: Result Comment: NO S PECIMEN Performed By: #### L 100.0100, L501.5200 ####[facility] [address] [place], [address] RBC Normal 4.2-5.4 [facility] Comment on above: Result Comment: NO S PECIMEN Performed By: #### L 100.0100, L501.5200 ####[facility] [address] [place], [address] RDW CV Normal 11.6-14.6 [facility] Comment on above: Result Comment: NO S PECIMEN Performed By: #### L 100.0100, L501.5200 ####[facility] [address] [place], [address] RDW SD Normal 35.1-43.9 [facility] Comment on above: Result Comment: NO S PECIMEN Performed By: #### L 100.0100, L501.5200 ####[facility] [address] [place], [address] WBC Normal 4.4-11.0 [facility] Comment on above: Result Comment: NO S PECIMEN Performed By: #### L 100.0100, L501.5200 ####[facility] [address] [place], [address] Comprehensive Metabolic Prof ilon 10-03-2024 Albumin [Mass/Vol] 3.1 g/dL Low 3.2-5.0 [facility] Comment on above: Performed By: #### L 500.4050, L100.0100 ####[facility] [address] [place], [address] Albumin/Globulin [Mass ratio] 0.9 {ratio} Normal 0.9-2.4 [facility] Comment on above: Performed By: #### L 500.4050, L100.0100 ####[facility] [address] [place], [address] ALK P 117 U/L Normal 45-117 [facility] Comment on above: Performed By: #### L 500.4050, L100.0100 ####[facility] [address] [place], [address] ALT [Catalytic activity/Vol] 29 U/L Normal 13-56 [facility] Comment on above: Performed By: #### L 500.4050, L100.0100 ####[facility] [address] [place], [address] AST [Catalytic activity/Vol] 23 U/L Normal 15-37 [facility] Comment on above: Performed By: #### L 500.4050, L100.0100 ####[facility] [address] [place], [address] Bilirubin [Mass/Vol] 0.50 mg/dL Normal 0.20-1.00 [facility] Comment on above: Result Comment: For patients on eltrombopag therapy, use of Dimension Rosebud TBIL is not recommended. Performed By: #### L 500.4050, L100.0100 ####[facility] [address] [place], [address] BUN/CRE 21.1 RATIO High 10-20 [facility] Comment on above: Performed By: #### L 500.4050, L100.0100 ####[facility] [address] [place], [address] CA,Total 8.7 mg/dL Normal 8.5-10.1 [facility] Comment on above: Performed By: #### L 500.4050, L100.0100 ####[facility] [address] [place], [address] Chloride [Moles/Vol] 110 mmol/L High 98-107 [facility] Comment on above: Performed By: #### L 500.4050, L100.0100 ####[facility] [address] [place], [address] CO2 [Moles/Vol] 27.0 mmol/L Normal 21.0-32.0 [facility] Comment on above: Performed By: #### L 500.4050, L100.0100 ####[facility] [address] [place], [address] Creatinine [Mass/Vol] 0.57 mg/dL Normal 0.55-1.02 [facility] Comment on above: Result Comment: The validity of the calculated GFR GFRAA in patients over70 years has not been determined. Clinical correlation isessential. Performed By: #### L 500.4050, L100.0100 ####[facility] [address] [place], [address] ECRCL 73.62 ml/min Normal [facility] Comment on above: Performed By: #### L 500.4050, L100.0100 ####[facility] [address] [place], [address] EST GFR - AA 134 mL/min Normal >60 [facility] Comment on above: Result Comment: Afri can Bulgarian GFR Calc Performed By: #### L 500.4050, L100.0100 ####[facility] [address] [place], [address] GAP 5 Normal 5-15 [facility] Comment on above: Performed By: #### L 500.4050, L100.0100 ####[facility] [address] [place], [address] GFR/1.73 sq M.predicted among non-blacks MDRD (S/P/Bld) [Vol rate/Area] 111 mL/min/{1.73_m2} Normal >60 [facility] Comment on above: Result Comment: Non- GFR Calc Performed By: #### L 500.4050, L100.0100 ####[facility] [address] [place], [address] Globulin (S) [Mass/Vol] 3.4 g/dL Normal 2.2-4.2 [facility] Comment on above: Performed By: #### L 500.4050, L100.0100 ####[facility] [address] [place], [address] Glucose [Mass/Vol] 94 mg/dL Normal 74-106 [facility] Comment on above: Performed By: #### L 500.4050, L100.0100 ####[facility] [address] [place], [address] Potassium [Moles/Vol] 3.4 mmol/L Low 3.5-5.1 [facility] Comment on above: Performed By: #### L 500.4050, L100.0100 ####[facility] [address] [place], [address] Sodium [Moles/Vol] 142 mmol/L Normal 136-145 [facility] Comment on above: Performed By: #### L 500.4050, L100.0100 ####[facility] [address] [place], [address] T PROT 6.5 g/dL Normal 6.4-8.2 [facility] Comment on above: Performed By: #### L 500.4050, L100.0100 ####[facility] [address] [place], [address] Urea nitrogen [Mass/Vol] 12 mg/dL Normal 7-18 [facility] Comment on above: Performed By: #### L 500.4050, L100.0100 ####[facility] [address] [place], [address] Oncology Visit Reporton 12-0 Oncology Visit Report Normal [facility] CBC W/Diff, Automatedon 11-2 Absolute Lymph 0.91 X10 3/uL Normal 0.83-4.51 [facility] Comment on above: Performed By: #### L 100.0100, L500.4050, L501.5200 ####[facility] [address] [place], [address] Absolute Neut 1.3 X10 3/uL Low 2.0-7.7 [facility] Comment on above: Performed By: #### L 100.0100, L500.4050, L501.5200 ####[facility] [address] [place], [address] Basophils/100 WBC (Bld) 2.4 % High 0-1 [facility] Comment on above: Performed By: #### L 100.0100, L500.4050, L501.5200 ####[facility] [address] [place], [address] Eosinophils/100 WBC (Bld) 1.7 % Normal 0-5 [facility] Comment on above: Performed By: #### L 100.0100, L500.4050, L501.5200 ####[facility] [address] [place], [address] Erythrocyte distribution width (RBC) [Ratio] 13.5 % Normal 11.6-14.6 [facility] Comment on above: Performed By: #### L 100.0100, L500.4050, L501.5200 ####[facility] [address] [place], [address] Hematocrit (Bld) [Volume fraction] 35.3 % Low 37-47 [facility] Comment on above: Performed By: #### L 100.0100, L500.4050, L501.5200 ####[facility] [address] [place], [address] Hemoglobin (Bld) [Mass/Vol] 12.1 g/dL Normal 12.0-15.0 [facility] Comment on above: Performed By: #### L 100.0100, L500.4050, L501.5200 ####[facility] [address] [place], [address] IG% 3.000 High 0.0-0.9 [facility] Comment on above: Result Comment: IG% - Immature Granulocytes (promyelocytes, myelocytes andmetamyelocytes) > 1% indicates that a LEFT SHIFT is Present. Performed By: #### L 100.0100, L500.4050, L501.5200 ####[facility] [address] [place], [address] Lymphocytes/100 WBC (Bld) 30.7 % Normal 19-41 [facility] Comment on above: Performed By: #### L 100.0100, L500.4050, L501.5200 ####[facility] [address] [place], [address] MCH (RBC) [Entitic mass] 30.0 pg Normal 27.0-32.0 [facility] Comment on above: Performed By: #### L 100.0100, L500.4050, L501.5200 ####[facility] [address] [place], [address] MCHC (RBC) [Mass/Vol] 34.3 g/dL Normal 32-36 [facility] Comment on above: Performed By: #### L 100.0100, L500.4050, L501.5200 ####[facility] [address] [place], [address] MCV (RBC) [Entitic vol] 87.4 fL Normal 81-99 [facility] Comment on above: Performed By: #### L 100.0100, L500.4050, L501.5200 ####[facility] [address] [place], [address] Monocytes/100 WBC (Bld) 17.9 % High 0-10 [facility] Comment on above: Performed By: #### L 100.0100, L500.4050, L501.5200 ####[facility] [address] [place], [address] Neutrophils/100 WBC (Bld) 44.3 % Low 47-70 [facility] Comment on above: Performed By: #### L 100.0100, L500.4050, L501.5200 ####[facility] [address] [place], [address] Nucleated RBC (Bld) [#/Vol] 0 10*3/uL Normal 0-5 [facility] Comment on above: Performed By: #### L 100.0100, L500.4050, L501.5200 ####[facility] [address] [place], [address] Platelet mean volume (Bld) [Entitic vol] 8.8 fL Normal 6.2-12.0 [facility] Comment on above: Performed By: #### L 100.0100, L500.4050, L501.5200 ####[facility] [address] [place], [address] Platelets (Bld) [#/Vol] 242 10*3/uL Normal 150-450 [facility] Comment on above: Performed By: #### L 100.0100, L500.4050, L501.5200 ####[facility] [address] [place], [address] RBC (Bld) [#/Vol] 4.04 10*6/uL Low 4.2-5.4 [facility] Comment on above: Performed By: #### L 100.0100, L500.4050, L501.5200 ####[facility] [address] [place], [address] RDW SD 41.1 fl Normal 35.1-43.9 [facility] Comment on above: Performed By: #### L 100.0100, L500.4050, L501.5200 ####[facility] [address] [place], [address] WBC (Bld) [#/Vol] 3.0 10*3/uL Low 4.4-11.0 [facility] Comment on above: Performed By: #### L 100.0100, L500.4050, L501.5200 ####[facility] [address] [place], [address] Comprehensive Metabolic Prof ilon 09-25-2024 Albumin [Mass/Vol] 3.0 g/dL Low 3.2-5.0 [facility] Comment on above: Performed By: #### L 100.0100, L500.4050, L501.5200 ####[facility] [address] [place], [address] Albumin/Globulin [Mass ratio] 0.9 {ratio} Normal 0.9-2.4 [facility] Comment on above: Performed By: #### L 100.0100, L500.4050, L501.5200 ####[facility] [address] [place], [address] ALK P 101 U/L Normal 45-117 [facility] Comment on above: Performed By: #### L 100.0100, L500.4050, L501.5200 ####[facility] [address] [place], [address] ALT [Catalytic activity/Vol] 26 U/L Normal 13-56 [facility] Comment on above: Performed By: #### L 100.0100, L500.4050, L501.5200 ####[facility] [address] [place], [address] AST [Catalytic activity/Vol] 20 U/L Normal 15-37 [facility] Comment on above: Performed By: #### L 100.0100, L500.4050, L501.5200 ####[facility] [address] [place], [address] Bilirubin [Mass/Vol] 0.50 mg/dL Normal 0.20-1.00 [facility] Comment on above: Result Comment: For patients on eltrombopag therapy, use of Dimension Rosebud TBIL is not recommended. Performed By: #### L 100.0100, L500.4050, L501.5200 ####[facility] [address] [place], [address] BUN/CRE 26.2 RATIO High 10-20 [facility] Comment on above: Performed By: #### L 100.0100, L500.4050, L501.5200 ####[facility] [address] [place], [address] CA,Total 8.7 mg/dL Normal 8.5-10.1 [facility] Comment on above: Performed By: #### L 100.0100, L500.4050, L501.5200 ####[facility] [address] [place], [address] Chloride [Moles/Vol] 113 mmol/L High 98-107 [facility] Comment on above: Performed By: #### L 100.0100, L500.4050, L501.5200 ####[facility] [address] [place], [address] CO2 [Moles/Vol] 26.0 mmol/L Normal 21.0-32.0 [facility] Comment on above: Performed By: #### L 100.0100, L500.4050, L501.5200 ####[facility] [address] [place], [address] Creatinine [Mass/Vol] 0.61 mg/dL Normal 0.55-1.02 [facility] Comment on above: Result Comment: The validity of the calculated GFR GFRAA in patients over70 years has not been determined. Clinical correlation isessential. Performed By: #### L 100.0100, L500.4050, L501.5200 ####[facility] [address] [place], [address] ECRCL 72.95 ml/min Normal [facility] Comment on above: Performed By: #### L 100.0100, L500.4050, L501.5200 ####[facility] [address] [place], [address] EST GFR - AA 124 mL/min Normal >60 [facility] Comment on above: Result Comment: Afri can Bulgarian GFR Calc Performed By: #### L 100.0100, L500.4050, L501.5200 ####[facility] [address] [place], [address] GAP 5 Normal 5-15 [facility] Comment on above: Performed By: #### L 100.0100, L500.4050, L501.5200 ####[facility] [address] [place], [address] GFR/1.73 sq M.predicted among non-blacks MDRD (S/P/Bld) [Vol rate/Area] 102 mL/min/{1.73_m2} Normal >60 [facility] Comment on above: Result Comment: Non- GFR Calc Performed By: #### L 100.0100, L500.4050, L501.5200 ####[facility] [address] [place], [address] Globulin (S) [Mass/Vol] 3.2 g/dL Normal 2.2-4.2 [facility] Comment on above: Performed By: #### L 100.0100, L500.4050, L501.5200 ####[facility] [address] [place], [address] Glucose [Mass/Vol] 85 mg/dL Normal 74-106 [facility] Comment on above: Performed By: #### L 100.0100, L500.4050, L501.5200 ####[facility] [address] [place], [address] Potassium [Moles/Vol] 3.4 mmol/L Low 3.5-5.1 [facility] Comment on above: Performed By: #### L 100.0100, L500.4050, L501.5200 ####[facility] [address] [place], [address] Sodium [Moles/Vol] 144 mmol/L Normal 136-145 [facility] Comment on above: Performed By: #### L 100.0100, L500.4050, L501.5200 ####[facility] [address] [place], [address] T PROT 6.2 g/dL Low 6.4-8.2 [facility] Comment on above: Performed By: #### L 100.0100, L500.4050, L501.5200 ####[facility] [address] [place], [address] Urea nitrogen [Mass/Vol] 16 mg/dL Normal 7-18 [facility] Comment on above: Performed By: #### L 100.0100, L500.4050, L501.5200 ####[facility] [address] [place], [address] Magnesiumon 09-25-2024 Magnesium [Mass/Vol] 2.1 mg/dL Normal 1.6-2.6 [facility] Comment on above: Performed By: #### L 100.0100, L500.4050, L501.5200 ####[facility] [address] [place], [address] Oncology Visit Reporton 08-31 Oncology Visit Report Normal [facility] CBC W/Diff, Automatedon 08-31 Absolute Lymph 0.78 X10 3/uL Low 0.83-4.51 [facility] Comment on above: Performed By: #### L 501.5200, L100.0100, L500.4050 ####[facility] [address] [place], [address] Absolute Neut 1.1 X10 3/uL Low 2.0-7.7 [facility] Comment on above: Performed By: #### L 501.5200, L100.0100, L500.4050 ####[facility] [address] [place], [address] Basophils/100 WBC (Bld) 2.8 % High 0-1 [facility] Comment on above: Performed By: #### L 501.5200, L100.0100, L500.4050 ####[facility] [address] [place], [address] Eosinophils/100 WBC (Bld) 1.4 % Normal 0-5 [facility] Comment on above: Performed By: #### L 501.5200, L100.0100, L500.4050 ####[facility] [address] [place], [address] Erythrocyte distribution width (RBC) [Ratio] 12.5 % Normal 11.6-14.6 [facility] Comment on above: Performed By: #### L 501.5200, L100.0100, L500.4050 ####[facility] [address] [place], [address] Hematocrit (Bld) [Volume fraction] 35.3 % Low 37-47 [facility] Comment on above: Performed By: #### L 501.5200, L100.0100, L500.4050 ####[facility] [address] [place], [address] Hemoglobin (Bld) [Mass/Vol] 12.2 g/dL Normal 12.0-15.0 [facility] Comment on above: Performed By: #### L 501.5200, L100.0100, L500.4050 ####[facility] [address] [place], [address] IG% 2.800 High 0.0-0.9 [facility] Comment on above: Result Comment: IG% - Immature Granulocytes (promyelocytes, myelocytes andmetamyelocytes) > 1% indicates that a LEFT SHIFT is Present. Performed By: #### L 501.5200, L100.0100, L500.4050 ####[facility] [address] [place], [address] Lymphocytes/100 WBC (Bld) 36.3 % Normal 19-41 [facility] Comment on above: Performed By: #### L 501.5200, L100.0100, L500.4050 ####[facility] [address] [place], [address] MCH (RBC) [Entitic mass] 30.3 pg Normal 27.0-32.0 [facility] Comment on above: Performed By: #### L 501.5200, L100.0100, L500.4050 ####[facility] [address] [place], [address] MCHC (RBC) [Mass/Vol] 34.6 g/dL Normal 32-36 [facility] Comment on above: Performed By: #### L 501.5200, L100.0100, L500.4050 ####[facility] [address] [place], [address] MCV (RBC) [Entitic vol] 87.6 fL Normal 81-99 [facility] Comment on above: Performed By: #### L 501.5200, L100.0100, L500.4050 ####[facility] [address] [place], [address] Monocytes/100 WBC (Bld) 7.4 % Normal 0-10 [facility] Comment on above: Performed By: #### L 501.5200, L100.0100, L500.4050 ####[facility] [address] [place], [address] Neutrophils/100 WBC (Bld) 49.3 % Normal 47-70 [facility] Comment on above: Performed By: #### L 501.5200, L100.0100, L500.4050 ####[facility] [address] [place], [address] Nucleated RBC (Bld) [#/Vol] 0 10*3/uL Normal 0-5 [facility] Comment on above: Performed By: #### L 501.5200, L100.0100, L500.4050 ####[facility] [address] [place], [address] Platelet mean volume (Bld) [Entitic vol] 9.3 fL Normal 6.2-12.0 [facility] Comment on above: Performed By: #### L 501.5200, L100.0100, L500.4050 ####[facility] [address] [place], [address] Platelets (Bld) [#/Vol] 238 10*3/uL Normal 150-450 [facility] Comment on above: Performed By: #### L 501.5200, L100.0100, L500.4050 ####[facility] [address] [place], [address] RBC (Bld) [#/Vol] 4.03 10*6/uL Low 4.2-5.4 [facility] Comment on above: Performed By: #### L 501.5200, L100.0100, L500.4050 ####[facility] [address] [place], [address] RDW SD 38.6 fl Normal 35.1-43.9 [facility] Comment on above: Performed By: #### L 501.5200, L100.0100, L500.4050 ####[facility] [address] [place], [address] WBC (Bld) [#/Vol] 2.2 10*3/uL Low 4.4-11.0 [facility] Comment on above: Performed By: #### L 501.5200, L100.0100, L500.4050 ####[facility] [address] [place], [address] Comprehensive Metabolic [facility] 09-19-2024 Albumin [Mass/Vol] 3.1 g/dL Low 3.2-5.0 [facility] Comment on above: Performed By: #### L 501.5200, L100.0100, L500.4050 ####[facility] [address] [place], [address] Albumin/Globulin [Mass ratio] 1.0 {ratio} Normal 0.9-2.4 [facility] Comment on above: Performed By: #### L 501.5200, L100.0100, L500.4050 ####[facility] [address] [place], [address] ALK P 96 U/L Normal 45-117 [facility] Comment on above: Performed By: #### L 501.5200, L100.0100, L500.4050 ####[facility] [address] [place], [address] ALT [Catalytic activity/Vol] 25 U/L Normal 13-56 [facility] Comment on above: Performed By: #### L 501.5200, L100.0100, L500.4050 ####[facility] [address] [place], [address] AST [Catalytic activity/Vol] 19 U/L Normal 15-37 [facility] Comment on above: Performed By: #### L 501.5200, L100.0100, L500.4050 ####[facility] [address] [place], [address] Bilirubin [Mass/Vol] 0.60 mg/dL Normal 0.20-1.00 [facility] Comment on above: Result Comment: For patients on eltrombopag therapy, use of Dimension [place] TBIL is not recommended. Performed By: #### L 501.5200, L100.0100, L500.4050 ####[facility] [address] [place], [address] BUN/CRE 27.0 RATIO High 10-20 [facility] Comment on above: Performed By: #### L 501.5200, L100.0100, L500.4050 ####[facility] [address] [place], [address] CA,Total 8.7 mg/dL Normal 8.5-10.1 [facility] Comment on above: Performed By: #### L 501.5200, L100.0100, L500.4050 ####[facility] [address] [place], [address] Chloride [Moles/Vol] 112 mmol/L High 98-107 [facility] Comment on above: Performed By: #### L 501.5200, L100.0100, L500.4050 ####[facility] [address] [place], [address] CO2 [Moles/Vol] 26.0 mmol/L Normal 21.0-32.0 [facility] Comment on above: Performed By: #### L 501.5200, L100.0100, L500.4050 ####[facility] [address] [place], [address] Creatinine [Mass/Vol] 0.52 mg/dL Low 0.55-1.02 [facility] Comment on above: Result Comment: The validity of the calculated GFR GFRAA in patients over70 years has not been determined. Clinical correlation isessential. Performed By: #### L 501.5200, L100.0100, L500.4050 ####[facility] [address] [place], [address] ECRCL 72.92 ml/min Normal [facility] Comment on above: Performed By: #### L 501.5200, L100.0100, L500.4050 ####[facility] [address] [place], [address] EST GFR - AA 150 mL/min Normal >60 [facility] Comment on above: Result Comment: Afri can Bulgarian GFR Calc Performed By: #### L 501.5200, L100.0100, L500.4050 ####[facility] [id number] [place], [address] GAP 4 Low 5-15 [facility] Comment on above: Performed By: #### L 501.5200, L100.0100, [id number] ####[facility] [id number] [place], [address] GFR/1.73 sq M.predicted among non-blacks MDRD (S/P/Bld) [Vol rate/Area] 124 mL/min/{1.73_m2} Normal >60 [facility] Comment on above: Result Comment: Non- GFR Calc Performed By: #### L 501.5200, L100.0100, L500.4050 ####[facility] [address] [place], [address] Globulin (S) [Mass/Vol] 3.1 g/dL Normal 2.2-4.2 [facility] Comment on above: Performed By: #### L 501.5200, L100.0100, L500.4050 ####[facility] [address] [place], [address] Glucose [Mass/Vol] 92 mg/dL Normal 74-106 [facility] Comment on above: Performed By: #### L 501.5200, L100.0100, L500.4050 ####[facility] [address] [place], [address] Potassium [Moles/Vol] 4.0 mmol/L Normal 3.5-5.1 [facility] Comment on above: Performed By: #### L 501.5200, L100.0100, L500.4050 ####[facility] [address] [place], [address] Sodium [Moles/Vol] 142 mmol/L Normal 136-145 [facility] Comment on above: Performed By: #### L 501.5200, L100.0100, L500.4050 ####[facility] [address] [place], [address] T PROT 6.2 g/dL Low 6.4-8.2 [facility] Comment on above: Performed By: #### L 501.5200, L100.0100, L500.4050 ####[facility] [address] [place], [address] Urea nitrogen [Mass/Vol] 14 mg/dL Normal 7-18 [facility] Comment on above: Performed By: #### L 501.5200, L100.0100, L500.4050 ####[facility] [address] [place], [address] Magnesiumon 09-19-2024 Magnesium [Mass/Vol] 2.1 mg/dL Normal 1.6-2.6 [facility] Comment on above: Performed By: #### L 501.5200, L100.0100, L500.4050 ####[facility] [address] [place], [address] Oncology Visit Reporton 08-31 Oncology Visit Report Normal [facility] CBC W/Diff, Automatedon 08-30 Absolute Lymph 1.02 X10 3/uL Normal 0.83-4.51 [facility] Comment on above: Performed By: #### L 100.0100, L500.4050, L501.5200 ####[facility] [address] [place], [address] Absolute Neut 1.0 X10 3/uL Low 2.0-7.7 [facility] Comment on above: Performed By: #### L 100.0100, L500.4050, L501.5200 ####[facility] [address] [place], [address] Basophils/100 WBC (Bld) 2.2 % High 0-1 [facility] Comment on above: Performed By: #### L 100.0100, L500.4050, L501.5200 ####[facility] [address] [place], [address] Eosinophils/100 WBC (Bld) 1.7 % Normal 0-5 [facility] Comment on above: Performed By: #### L 100.0100, L500.4050, L501.5200 ####[facility] [address] [place], [address] Erythrocyte distribution width (RBC) [Ratio] 12.2 % Normal 11.6-14.6 [facility] Comment on above: Performed By: #### L 100.0100, L500.4050, L501.5200 ####[facility] [address] [place], [address] Hematocrit (Bld) [Volume fraction] 36.6 % Low 37-47 [facility] Comment on above: Performed By: #### L 100.0100, L500.4050, L501.5200 ####[facility] [address] [place], [address] Hemoglobin (Bld) [Mass/Vol] 12.5 g/dL Normal 12.0-15.0 [facility] Comment on above: Performed By: #### L 100.0100, L500.4050, L501.5200 ####[facility] [address] [place], [address] IG% 2.600 High 0.0-0.9 [facility] Comment on above: Result Comment: IG% - Immature Granulocytes (promyelocytes, myelocytes andmetamyelocytes) > 1% indicates that a LEFT SHIFT is Present. Performed By: #### L 100.0100, L500.4050, L501.5200 ####[facility] [address] [place], [address] Lymphocytes/100 WBC (Bld) 44.3 % High 19-41 [facility] Comment on above: Performed By: #### L 100.0100, L500.4050, L501.5200 ####[facility] [address] [place], [address] MCH (RBC) [Entitic mass] 30.2 pg Normal 27.0-32.0 [facility] Comment on above: Performed By: #### L 100.0100, L500.4050, L501.5200 ####[facility] [address] [place], [address] MCHC (RBC) [Mass/Vol] 34.2 g/dL Normal 32-36 [facility] Comment on above: Performed By: #### L 100.0100, L500.4050, L501.5200 ####[facility] [address] [place], [address] MCV (RBC) [Entitic vol] 88.4 fL Normal 81-99 [facility] Comment on above: Performed By: #### L 100.0100, L500.4050, L501.5200 ####[facility] [address] [place], [address] Monocytes/100 WBC (Bld) 7.8 % Normal 0-10 [facility] Comment on above: Performed By: #### L 100.0100, L500.4050, L501.5200 ####[facility] [address] [place], [address] Neutrophils/100 WBC (Bld) 41.4 % Low 47-70 [facility] Comment on above: Performed By: #### L 100.0100, L500.4050, L501.5200 ####[facility] [address] [place], [address] Nucleated RBC (Bld) [#/Vol] 0 10*3/uL Normal 0-5 [facility] Comment on above: Performed By: #### L 100.0100, L500.4050, L501.5200 ####[facility] [address] [place], [address] Platelet mean volume (Bld) [Entitic vol] 9.1 fL Normal 6.2-12.0 [facility] Comment on above: Performed By: #### L 100.0100, L500.4050, L501.5200 ####[facility] [address] [place], [address] Platelets (Bld) [#/Vol] 206 10*3/uL Normal 150-450 [facility] Comment on above: Performed By: #### L 100.0100, L500.4050, L501.5200 ####[facility] [address] [place], [address] RBC (Bld) [#/Vol] 4.14 10*6/uL Low 4.2-5.4 [facility] Comment on above: Performed By: #### L 100.0100, L500.4050, L501.5200 ####[facility] [address] [place], [address] RDW SD 38.7 fl Normal 35.1-43.9 [facility] Comment on above: Performed By: #### L 100.0100, L500.4050, L501.5200 ####[facility] [address] [place], [address] WBC (Bld) [#/Vol] 2.3 10*3/uL Low 4.4-11.0 [facility] Comment on above: Performed By: #### L 100.0100, L500.4050, L501.5200 ####[facility] [address] [place], [address] Comprehensive Metabolic [facility] christiano 09-12-2024 Albumin [Mass/Vol] 3.1 g/dL Low 3.2-5.0 [facility] Comment on above: Performed By: #### L 100.0100, L500.4050, L501.5200 ####[facility] [address] [place], [address] Albumin/Globulin [Mass ratio] 1.0 {ratio} Normal 0.9-2.4 [facility] Comment on above: Performed By: #### L 100.0100, L500.4050, L501.5200 ####[facility] [address] [place], [address] ALK P 93 U/L Normal 45-117 [facility] Comment on above: Performed By: #### L 100.0100, L500.4050, L501.5200 ####[facility] [address] [place], [address] ALT [Catalytic activity/Vol] 34 U/L Normal 13-56 [facility] Comment on above: Performed By: #### L 100.0100, L500.4050, L501.5200 ####[facility] [address] [place], [address] AST [Catalytic activity/Vol] 19 U/L Normal 15-37 [facility] Comment on above: Performed By: #### L 100.0100, L500.4050, L501.5200 ####[facility] [address] [place], [address] Bilirubin [Mass/Vol] 0.60 mg/dL Normal 0.20-1.00 [facility] Comment on above: Result Comment: For patients on eltrombopag therapy, use of Dimension Rosebud TBIL is not recommended. Performed By: #### L 100.0100, L500.4050, L501.5200 ####[facility] [address] [place], [address] BUN/CRE 26.0 RATIO High 10-20 [facility] Comment on above: Performed By: #### L 100.0100, L500.4050, L501.5200 ####[facility] [address] [place], [address] CA,Total 8.7 mg/dL Normal 8.5-10.1 [facility] Comment on above: Performed By: #### L 100.0100, L500.4050, L501.5200 ####[facility] [address] [place], [address] Chloride [Moles/Vol] 112 mmol/L High 98-107 [facility] Comment on above: Performed By: #### L 100.0100, L500.4050, L501.5200 ####[facility] [address] [place], [address] CO2 [Moles/Vol] 26.0 mmol/L Normal 21.0-32.0 [facility] Comment on above: Performed By: #### L 100.0100, L500.4050, L501.5200 ####[facility] [address] [place], [address] Creatinine [Mass/Vol] 0.54 mg/dL Low 0.55-1.02 [facility] Comment on above: Result Comment: The validity of the calculated GFR GFRAA in patients over70 years has not been determined. Clinical correlation isessential. Performed By: #### L 100.0100, L500.4050, L501.5200 ####[facility] [address] [place], [address] ECRCL 73.09 ml/min Normal [facility] Comment on above: Performed By: #### L 100.0100, L500.4050, L501.5200 ####[facility] [address] [place], [address] EST GFR - AA 143 mL/min Normal >60 [facility] Comment on above: Result Comment: Afri can Bulgarian GFR Calc Performed By: #### L 100.0100, L500.4050, L501.5200 ####[facility] [address] [place], [address] GAP 5 Normal 5-15 [facility] Comment on above: Performed By: #### L 100.0100, L500.4050, L501.5200 ####[facility] [address] [place], [address] GFR/1.73 sq M.predicted among non-blacks MDRD (S/P/Bld) [Vol rate/Area] 118 mL/min/{1.73_m2} Normal >60 [facility] Comment on above: Result Comment: Non- GFR Calc Performed By: #### L 100.0100, L500.4050, L501.5200 ####[facility] [address] [place], [address] Globulin (S) [Mass/Vol] 3.1 g/dL Normal 2.2-4.2 [facility] Comment on above: Performed By: #### L 100.0100, L500.4050, L501.5200 ####[facility] [address] [place], [address] Glucose [Mass/Vol] 89 mg/dL Normal 74-106 [facility] Comment on above: Performed By: #### L 100.0100, L500.4050, L501.5200 ####[facility] [address] [place], [address] Potassium [Moles/Vol] 3.8 mmol/L Normal 3.5-5.1 [facility] Comment on above: Performed By: #### L 100.0100, L500.4050, L501.5200 ####[facility] [address] [place], [address] Sodium [Moles/Vol] 142 mmol/L Normal 136-145 [facility] Comment on above: Performed By: #### L 100.0100, L500.4050, L501.5200 ####[facility] [address] [place], [address] T PROT 6.2 g/dL Low 6.4-8.2 [facility] Comment on above: Performed By: #### L 100.0100, L500.4050, L501.5200 ####[facility] [address] [place], [address] Urea nitrogen [Mass/Vol] 14 mg/dL Normal 7-18 [facility] Comment on above: Performed By: #### L 100.0100, L500.4050, L501.5200 ####[facility] [address] [place], [address] Magnesiumon 09-12-2024 Magnesium [Mass/Vol] 2.1 mg/dL Normal 1.6-2.6 [facility] Comment on above: Performed By: #### L 100.0100, L500.4050, L501.5200 ####[facility] [address] [place], [address] Oncology Visit Reporton 08-30 Oncology Visit Report Normal [facility] Surgery Visit Reporton 09-[address] [facility] CA 15-3Ordered By: Arturo ornelas on 07-31-2024 CA 15-3 27.3 U/mL High 0.0-25.0 [facility] Comment on above: [employer] El ectrochemiluminescence Immunoassay(ECLIA)Values obtained with different assay methods or kits cannotbe used interchangeably. Results cannot be interpreted asabsolute evidence of the presence or absence of malignantdisease.Performed at: [employer] [id number] Director: Beck Joy PhD, Phone: [phone] CA 15-3 Antigen 27.3 U/mL High 0.0-25.0 [facility] Comment on above: [employer] El ectrochemiluminescence Immunoassay(ECLIA)Values obtained with different assay methods or kits cannotbe used interchangeably. Results cannot be interpreted asabsolute evidence of the presence or absence of malignantdisease.Performed at: [employer] [id number] Director: Beck Joy PhD, Phone: [phone] CA 27.29Ordered By: Arturo Olivas on 07-31-2024 CA 27.29 30.2 U/mL 0.0-38.6 [facility] Comment on above: [employer] Immu nochemiluminometric Methodology (ICMA)Values obtained with different assay methods or kits cannotbe used interchangeably. Results cannot be interpreted asabsolute evidence of the presence or absence of malignantdisease. Provider Note - ED v3on 05-0 Provider Note - ED v3 Provider Note: Chart Review: ED NOTES ED NOTES: Presents for evaluation of URI. Symptoms including cough, congestion, body aches, malaise, and headache have been present for several days and refractory to OTC meds. Pt reports she had a fever of 101 at onset of illness but has since resolved. No loss of taste/smell, nausea, vomiting, abdominal pain, CP, or SOB. No exacerbating factors. No known COVID 19/flu exposure. HISTORY OF PRESENTING ILLNESS REBA is a 72 year old Female and was seen by me at 28-Feb-2023 09:54. Triage Information: Most recent Vital Sign Value Date PAST MEDICAL HISTORY ALLERGIES/INTOLERANCES: Allergy Allergen: Naprosyn Type: Drug Reaction: Hives/Urticaria HEALTH HISTORY: Medical History Name:Breast cancer Code:C50.919 OUTPATIENT MEDICATIONS: Home Medications Review Status for Reconciliation: Complete Med Status: Patient Currently Takes Medications Drug Name: anastrozole 1 mg oral tablet Instructions: 1 tab(s) orally once a day Drug Name: Calcium 600+D oral tablet Instructions: 1 tab(s) orally 2 times a day Drug Name: azithromycin 250 mg oral tablet Instructions: Take 2 tabs (500mg) x 1 days, then 1 tab (250mg) once daily x 4 days Drug Name: predniSONE 20 mg oral tablet Instructions: 1 tab(s) orally once a day Drug Name: albuterol 90 mcg/inh inhalation aerosol Instructions: 2 puff(s) inhaled 2 times a day as needed for cough SIGNIFICANT EVENTS: Past Medical History Description:Breast cancer Past Surgical History Description:Lumpectomy REVIEW OF SYSTEMS All other systems reviewed and are negative REVIEW OF SYSTEMS: Comments See HPI PHYSICAL EXAM CONSTITUTIONAL: Dull nasally voice but appears well nourished, awake, alert, oriented to person, place, time/situation and in no apparent distress. HENMT: Airway patent, ears with R TM slightly injected with clear middle ear effusion, L TM clear without effusion. Nasal mucosa clear. Mouth with normal mucosa. Throat has no vesicles, no oropharyngeal exudates and uvula is midline. Face with no lymph node enlargement. EYES: Clear bilaterally, pupils equal, round and reactive to light. CARDIOVASCULAR: Normal rate, regular rhythm. Heart sounds S1, S2. No murmurs, rubs or gallops. PMI non-displaced. RESPIRATORY: Breath sounds clear and equal bilaterally. Frequent dry coughing during exam during inspiration. NEUROLOGICAL: Alert and oriented, no focal deficits, no motor or sensory deficits. SKIN: Skin normal color for race, warm, dry and intact. No evidence of trauma. PSYCHIATRIC: Alert and oriented to person, place, time/situation. normal mood and affect. No apparent risk to self or others. CRITICAL CARE VITAL SIGNS: T PRBP SpO2O2(LPM) %FiO2 Method 28-Feb-2023 09:51:[id number] MDM MDM/ED COURSE: Discussed Findings with: patient Data Reviewed: vital signs Treatment Plan: Rx Zithromax, prednisone and albuterol inhaler. Encouraged pt to continue otc cold remedies PRN, push by mouth fluids and rest. Patient's clinical presentation is otherwise unremarkable at this time. Patient is discharged with instructions to follow-up with primary care or seek emergency medical attention for worsening symptoms or any new concerns. DISPOSITION Diagnosis/Annotation: ED Dx Name:Acute bronchitis Code:J20.9 Disposition: discharged Type: home CONSULT CRITICAL CARE TIME Is this a critically ill patient: no Electronic Signatures: Rob Coy (PLANT MAINTENANCE ENGINEER-CLINIC MANAGER) (Signed 28-Feb-2023 10:05) Authored: ED Notes, HPI, PMH, ROS, PE, Results/Vital Signs, MDM/ED Course, Clinical Impression, Attestation, Chart Review, Scores Last Updated: 28-Feb-2023 10:05 by Rob Coy (PLANT MAINTENANCE ENGINEER-CLINIC MANAGER) [facility] CT CHEST WITHOUT CONTRASTon 10-18-2022 CT CHEST WITHOUT CONTRAST EXAM: CT CHEST WITHOUT CONTRAST, 10/18/2022 11:29 AM COMPARISON: August 12, 2021 CLINICAL INDICATIONS: solitary fibrous tumor surveillance; RELEVANT CLINICAL HISTORY: 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 FINDINGS: Lungs and Pleura: The lungs are clear. No new suspicious nodule. No consolidation. No pleural fluid. Prior left lower lobe wedge resection. * Stable left lower lobe pulmonary nodule, currently 4 x 3 mm (series 3 image 216) previously 4 x 4 mm. * Newly visualized 8 x 3 mm fissural nodule of the left lateral costophrenic angle. Given metastasis in the region of the previous * Stable 7 x 2 mm pleural-based right lower lobe nodule (series 3 image 192). 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 Tracheobronchial tree: No abnormality. Mediastinum/Adelaida: No mediastinal or hilar lymphadenopathy. Axilla and Supraclavicular Regions: No axillary or supraclavicular adenopathy. Cardiovascular: The cardiac chambers are within normal limits. The pericardium is normal. The aorta and its arch branch vessels are unremarkable. The pulmonary arteries are also unremarkable for noncontrast study. Upper Abdomen: Partially visualized cystic lesions within the liver measuring up to 6.6 cm, stable compared to prior study. Bones and Soft Tissue: Possible subtle lytic changes within the L2 vertebral body. Surgical clips in the left axilla. Slight nodular appearance of the partially visualized thyroid. IMPRESSION: 1. There is a new left costophrenic angle fissural nodule which could represent a benign finding, however given that this is in the region of the prior resected solitary fibrous tumor, continued attention to this nodule is suggested. 2. Several additional small pulmonary nodules demonstrate stability and are likely benign. 3. Possible nodularity of the thyroid. Nonemergent thyroid ultrasound may be performed if clinically indicated. 4. Questioned subtle lytic changes within the L2 vertebral body. This may be related to benign process, however continued attention is suggested. Normal [facility] CT Chest WO contraston 10-18 IMPRESSION: 1. There is a new left costophrenic angle fissural nodule which could represent a benign finding, however given that this is in the region of the prior resected solitary fibrous tumor, continued attention to this nodule is suggested. 2. Several additional small pulmonary nodules demonstrate stability and are likely benign. 3. Possible nodularity of the thyroid. Nonemergent thyroid ultrasound may be performed if clinically indicated. 4. Questioned subtle lytic changes within the L2 vertebral body. This may be related to benign process, however continued attention is suggested. 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 FINDINGS: Lungs and Pleura: The lungs are clear. No new suspicious nodule. No consolidation. No pleural fluid. Prior left lower lobe wedge resection. * Stable left lower lobe pulmonary nodule, currently 4 x 3 mm (series 3 image 216) previously 4 x 4 mm. * Newly visualized 8 x 3 mm fissural nodule of the left lateral costophrenic angle. Given metastasis in the region of the previous * Stable 7 x 2 mm pleural-based right lower lobe nodule (series 3 image 192). 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 Tracheobronchial tree: No abnormality. Mediastinum/Adelaida: No mediastinal or hilar lymphadenopathy. Axilla and Supraclavicular Regions: No axillary or supraclavicular adenopathy. Cardiovascular: The cardiac chambers are within normal limits. The pericardium is normal. The aorta and its arch branch vessels are unremarkable. The pulmonary arteries are also unremarkable for noncontrast study. Upper Abdomen: Partially visualized cystic lesions within the liver measuring up to 6.6 cm, stable compared to prior study. Bones and Soft Tissue: Possible subtle lytic changes within the L2 vertebral body. Surgical clips in the left axilla. Slight nodular appearance of the partially visualized thyroid. 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 FINDINGS: Lungs and Pleura: The lungs are clear. No new suspicious nodule. No consolidation. No pleural fluid. Prior left lower lobe wedge resection. * Stable left lower lobe pulmonary nodule, currently 4 x 3 mm (series 3 image 216) previously 4 x 4 mm. * Newly visualized 8 x 3 mm fissural nodule of the left lateral costophrenic angle. Given metastasis in the region of the previous * Stable 7 x 2 mm pleural-based right lower lobe nodule (series 3 image 192). 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 Tracheobronchial tree: No abnormality. Mediastinum/Adelaida: No mediastinal or hilar lymphadenopathy. Axilla and Supraclavicular Regions: No axillary or supraclavicular adenopathy. Cardiovascular: The cardiac chambers are within normal limits. The pericardium is normal. The aorta and its arch branch vessels are unremarkable. The pulmonary arteries are also unremarkable for noncontrast study. Upper Abdomen: Partially visualized cystic lesions within the liver measuring up to 6.6 cm, stable compared to prior study. Bones and Soft Tissue: Possible subtle lytic changes within the L2 vertebral body. Surgical clips in the left axilla. Slight nodular appearance of the partially visualized thyroid. IMPRESSION IMPRESSION: 1. There is a new left costophrenic angle fissural nodule which could represent a benign finding, however given that this is in the region of the prior resected solitary fibrous tumor, continued attention to this nodule is suggested. 2. Several additional small pulmonary nodules demonstrate stability and are likely benign. 3. Possible nodularity of the thyroid. Nonemergent thyroid ultrasound may be performed if clinically indicated. 4. Questioned subtle lytic changes within the L2 vertebral body. This may be related to benign process, however continued attention is suggested. [facility] Radiology Study observation (narrative) [facility] CT Chest WO contrastOrdered By: Waleska Engel on 10-18-2022 [facility] Work Phone: Provider Note - ED v3on 08-31 Provider Note - ED v3 Provider Note: Chart Review: ED NOTES ED NOTES: HPI: About 7 hours prior to arrival patient was out working in her yard when she tripped over a piece of pipe landing on her left wrist. She states she was able to finish her yard work but is evening his worn on the wrist has become more painful. She currently rates about a 5/10 worsened with any movement. She notes swelling over the ulnar aspect of the left wrist. Denies any other injuries or health concerns. ROS: Constitution: Denies Eyes: Robert Ears: Denies Nose: Denies Mouth/Teeth: Denies Throat/Neck: Denies Cardiovascular: Denies Respiratory: Denies Gastrointestinal: Denies Musculoskeletal: Left wrist pain Integumentary: Denies Endocrine: Denies Neuro: Denies Psychiatric: Denies Heme/Lymph: Denies Allergic/Immunologic: Denies Medical/Family HX: Breast cancer. Denies any other chronic medical conditions. Denies any tobacco alcohol or drug use ====Physical Exam==== Constitutional/General: Alert , well appearing, nontoxic, and in NAD. Head: Normocephalic and atraumatic. Eyes: PER, conjunctive normal, sclera nonicteric, subconjunctival layer is pink. Mouth: handling secretions, no trismus, moist mucous membranes Neck: Supple, full ROM, no stridor, no crepitus, no meningeal signs. Trachea at midline. Respiratory: not in respiratory distress. Chest: normal chest movement GI: nondistended Musculoskeletal: Pain with range of motion of left wrist. Mild swelling noted over the ulnar aspect of the left wrist. No obvious deformities noted. Integument: Skin warm and dry, no rashes. Neurologic: GCS 15, no focal deficits Psychiatric: Normal affect. I have reviewed and confirmed nurses/medics notes for patient past, social and family history. Portions of this note were dictated by speech recognition. An attempt at proof reading was made to minimize errors. Minor errors in advisory software engineer may be present. HISTORY OF PRESENTING ILLNESS REBA is a 71 year old Female and was seen by me at 27-Sep-2022 20:33. Triage Information: Most recent Vital Sign Value Date Temp (F): 99.4 09-27-2022 20:39 Temp (C): 37.4 09-27-2022 20:39 Heart Rate (beats/min): 84 09-27-2022 20:39 Respirations (breaths/min): 16 09-27-2022 20:39 SpO2 (%): 97 09-27-2022 20:39 BP Systolic (mm Hg): 150 09-27-2022 20:39 BP Diastolic (mm Hg): 94 09-27-2022 20:39 PAST MEDICAL HISTORY ALLERGIES/INTOLERANCES: Allergy Allergen: Naprosyn Type: Drug Reaction: Hives/Urticaria HEALTH HISTORY: Medical History Name:Breast cancer Code:C50.919 OUTPATIENT MEDICATIONS: Home Medications Review Status for Reconciliation: Incomplete Med Status: Incomplete Medication History Drug Name: anastrozole 1 mg oral tablet Instructions: 1 tab(s) orally once a day Drug Name: Calcium 600+D oral tablet Instructions: 1 tab(s) orally 2 times a day SIGNIFICANT EVENTS: Past Medical History Description:Breast cancer Past Surgical History Description:Lumpectomy CRITICAL CARE RESULTS: Radiology Results: Impression: No acute osseous injury. Xray Wrist Complete Min 3 View [Sep 27 2022 9:25PM] MDM MDM/ED COURSE: 2129-final results reviewed with patient. Patient was offered a splint for comfort which she declines. Patient discharged home with close follow-up. The x-ray of your wrist does not show any obvious sign of fracture or dislocation and I feel your symptoms today are more consistent with a strain or contusion related to your fall. I recommend that you continue to use ibuprofen and/or Tylenol as needed for pain, slowly resume activities as tolerated, and otherwise return to the nearest ER for any new or worsening concerns. DISPOSITION Diagnosis/Annotation: ED Dx Name:Strain of left wrist, initial encounter Code:S66.912A Disposition: discharged Type: home CONSULT CRITICAL CARE TIME Is this a critically ill patient: no Electronic Signatures: Phu Bean I (PLANT MAINTENANCE ENGINEER-CLINIC MANAGER) (Signed 27-Sep-2022 21:31) Authored: ED Notes, HPI, PMH, PE, Results/Vital Signs, MDM/ED Course, Clinical Impression, Attestation, Chart Review, Scores Last Updated: 27-Sep-2022 21:31 by Phu Bean I (PLANT MAINTENANCE ENGINEER-CLINIC MANAGER) [facility] Risk Screen - Adult Emergenc n 09-27-2022 Risk Screen - Adult Emergency Preferred Language: Preferred Language: Preferred Language for Discussing Health Care (patient/designee)Chinese Patient Preferred Pharmacy: Patient Preferred Pharmacy Statement: I have reviewed and updated the patient's preferred pharmacy selection for today's visit. Advanced Directives: Advance Directive/DNRno Advance Directive Information Givenpatient/family declined Family Violence Adult: Abuse Screen: Are you or have you been threatened or abused physically, emotionally, or sexually by anyoneno Learning Assessment (Patient): Learning Assessment (Patient): Patient is Able to be Assessed for Learningyes Factors Influencing Readiness to Learninterest in learning Factors that Impact Ability to Learnnone Devices/Methods Used to Communicatenone Learning Preferencesverbal instruction Cultural Considerationsnone Developmental Considerationsnone Episcopal Considerationsnone Learning Assessment (Other Learner): Learning Assessment (Other Learner): Other learner availableno Pressure Injury/TB/Substance: Pressure Injury: Pressure Injury Present on Admissionno Do you have a coughno Smoking Statusnever smoker Alcohol Usedenies Drug Usedenies Admission Risk Screen: Significant IndicatorsComplete CAGE: CAGE: Is this an injured patient at a Trauma Center ([facility] [place]): no Electronic Signatures: Gabrielle Gonzales) (Signed 27-Sep-2022 20:43) Authored: Preferred Language, Patient Preferred Pharmacy, Advanced Directives, Family Violence Adult, Learning Assessment (Patient), Learning Assessment (Other Learner), Pressure Injury/TB/Substance, Pressure Injury, CAGE Last Updated: 27-Sep-2022 20:43 by Gabrielle Gonzales (RN) [facility] Triage - EDon 09-27-2022 Triage - ED Chart Review: PRIMARY ASSESSMENT REBA BECKFORD's primary assessment is Within Defined Limits. The airway is open and patent. Breathing spontaneous and unlabored with clear breath sounds bilaterally. Circulation is normal with good peripheral pulses. Skin is warm and dry and color is normal for race. ARRIVAL INFORMATION Means of Arrival: Ambulatory Mode of Arrival: private vehicle Arrival From: home Accompanied By: self Language: Spoken Language Preferred: Chinese CHIEF COMPLAINT REBA BECKFORD is a Female patient with a chief complaint of wrist pain/injury (Patient states she tripped over a pipe while doing yard work today and fell, complains of left wrist pain, denies any other injuries, took ibuprofen prior to arrival). Triage Date/Time: 27-Sep-2022 20:36 KAJAL: 4 Pain Rating (0-10): 5 = Moderate Vital Signs: Temperature: 99.4F ( 37.4C) taken temporal Blood Pressure: 150/94 Mean: Heart Rate: 84 Respiratory Rate: 16 Pulse Oximetry: 97% on room air, no respiratory support. Height: 5 feet 8.00 inches. 172.7 CM Weight: 180.7 pounds. Calculated 82.0 kg. (scale measurement) Calculated BMI (kg/m2): 27.493 Calculated BSA (m2) 1.98 Niesha Coma Scale: Best Eye Response: (E4) spontaneous Best Motor Response: (M6) obeys commands Best Verbal Response: (V5) oriented Niesha Score: 15 Allergies: yes Mask applied: yes Patient has homicidal thoughts: no Risk Screens Suicide Risk Screen In the Past Month: Have you wished you were or wished you could go to sleep and not wake up no In the Past Month: Have you had any actual thoughts of killing yourself no In Your Lifetime: Have you ever done anything, started to do anything, or prepared to do anything to end your life no Interventions: Vickers Fall Interventions: LOW INTERVENTIONS: *patient oriented to surroundings and call system, * patient/family falls education completed and documented, *patients fall status communicated during bedside handoff, *whiteboard updated, *mode of toileting discussed with patient, *bed in low position with brakes locked, *call light in reach, * non-skid footwear TRAVEL HISTORY Travel History Coronavirus Screening: no exposure or symptoms Travel Exposure History: NO travel to International locations in the past 30 days PAIN Pain Scale Used: CLAUDETTE Pain Rating (0-10): 5 = Moderate Past Medical History: Past Medical History Reviewedyes Lumpectomy: Past Surgical History, Active Breast cancer: Past Medical History, Active Electronic Signatures: Gabrielle Gonzales (RN) (Signed 27-Sep-2022 20:42) Entered: Risk Screens, Pain, Arrival, ABCD, Travel History, Chart Review, Scores, Past Medical History Authored: Quick Triage, Risk Screens, Pain, Arrival, ABCD, Travel History, Chart Review, Scores, Past Medical History Last Updated: 27-Sep-2022 20:42 by Gabrielle Gonzales (RN) [facility] WRIST COMPLT MIN 3 VIEWSon 1 11-27-2021 WRIST COMPLT MIN 3 VIEWS Patient Name: REBA BECKFORD STUDY: WRIST COMPLT; MIN 3 VIEWS; Left; 09/27/2022 8:49 pm INDICATION: fall . COMPARISON: None. ACCESSION NUMBER(S): [id number] ORDERING CLINICIAN: PHU BEAN FINDINGS: No acute fracture or dislocation. No definite significant soft tissue abnormality is evident radiographically. Mild degenerative changes about the 1st carpometacarpal articulation. IMPRESSION: No acute osseous injury. Electronically signed by: TONJA LAMBERT MD [facility] Colonoscopyon 06-01-2022 Colonoscopy PATIENTNAME Patient Name: Reba Beckford EXAMDATE Procedure Date: 06/01/2022 11:08 AM PATIENTID PATIENTACCOUNTNUM PATIENTDOB Date of : 1950 ADMITTYPE Admit Type: Outpatient PATIENTROOM Site: [facility] 1 ETHNICITY Ethnicity: Not or RACE Race: White PROVDR Attending MD: Leyla Beebe DO ENDOPROCEDURENAME Procedure: Colonoscopy INDICATION Indications: Screening in patient at increased risk: Colorectal cancer in mother 60 or older PRIMARYPROVIDER Providers: Leyla Beebe DO (Doctor), Beatrice Cabrera RN (Nurse), Amairani Xavier RN (Nurse) EDREFPROVIDER Referring: Kristina Mcginnis MD CURRENT_MEDS Medicines: Midazolam 5 mg IV, Meperidine 50 mg IV, Glucagon 1 mg IV COMPLIC Complications: No immediate complications. ENDOPROCEDURETEXT Procedure: Pre-Anesthesia Assessment: - Prior to the procedure, a History and Physical was performed, and patient medications and allergies were reviewed. The patient is competent. The risks and benefits of the procedure and the sedation options and risks were discussed with the patient. All questions were answered and informed consent was obtained. Patient identification and proposed procedure were verified by the physician in the pre-procedure area. Mental Status Examination: alert and oriented. Airway Examination: normal oropharyngeal airway and neck mobility. Respiratory Examination: clear to auscultation. CV Examination: normal. Prophylactic Antibiotics: The patient does not require prophylactic antibiotics. Prior Anticoagulants: The patient has taken no anticoagulant or antiplatelet agents. ASA Grade Assessment: II - A patient with mild systemic disease. After reviewing the risks and benefits, the patient was deemed in satisfactory condition to undergo the procedure. The anesthesia plan was to use moderate sedation / analgesia (conscious sedation). Immediately prior to administration of medications, the patient was re-assessed for adequacy to receive sedatives. The heart rate, respiratory rate, oxygen saturations, blood pressure, adequacy of pulmonary ventilation, and response to care were monitored throughout the procedure. The physical status of the patient was re-assessed after the procedure. After I obtained informed consent, the scope was passed under direct vision. Throughout the procedure, the patient's blood pressure, pulse, and oxygen saturations were monitored continuously. The pediatric colonoscope was introduced through the anus and advanced to the terminal ileum, with identification of the appendiceal orifice and IC valve. The colonoscopy was performed without difficulty. The patient tolerated the procedure well. The quality of the bowel preparation was excellent. The terminal ileum, ileocecal valve, appendiceal orifice, and rectum were photographed. FINDING Findings: The perianal and digital rectal examinations were normal. Pertinent negatives include normal sphincter tone and no palpable rectal lesions. The terminal ileum appeared normal. A 5 mm polyp was found in the sigmoid colon. The polyp was sessile. The polyp was removed with a hot snare. Resection and retrieval were complete. No additional abnormalities were found on retroflexion. SEDATION Moderate Sedation: Moderate (conscious) sedation was administered by the endoscopy nurse and supervised by the endoscopist. The following parameters were monitored: oxygen saturation, heart rate, blood pressure, and response to care. Total physician intraservice time was 20 minutes. EBL Estimated Blood Loss: Estimated blood loss: none. IMPRESS Impression: - The examined portion of the ileum was normal. - One 5 mm polyp in the sigmoid colon, removed with a hot snare. Resected and retrieved. ENDORECOMMENDATION Recommendation: - Patient has a contact number available for emergencies. The signs and symptoms of potential delayed complications were discussed with the patient. Return to normal activities tomorrow. Written discharge instructions were provided to the patient. - Resume previous diet. - Continue present medications. - Repeat colonoscopy in 3 years for screening purposes. CPT_CODES Procedure Code(s): --- Professional --- 08395, Colonoscopy, flexible; with removal of tumor(s), polyp(s), or other lesion(s) by snare technique G0500, Moderate sedation services provided by the same physician or other qualified health hearing care practitioner performing a gastrointestinal endoscopic service that sedation supports, requiring the presence of an independent trained observer to assist in the monitoring of the patient's level of consciousness and physiological status; initial 15 minutes of intra-service time; patient age 5 years or older (additional time may be reported with 21181, as appropriate) ICD_CODES Diagnos (more content not included)... Normal [facility] No Panel Informationon 06-01 [facility] Gastroenter [facility] Work Phone: [email or web address] [id number] [email or web address]} [facility] Gastroenter [facility] Work Phone: [facility] Surgical Pathology Depar tmenton 06-01-2022 [facility] Surgical Pathology Department Name REBA BECKFORD Pathologist: FRENCH SILVER MD, PhD Date of Procedure: 06/01/2022 Date Received: 06/01/2022 Date Reported 06/03/2022 Submitting Physician: LEYLA BEEBE, Location: [facility] Copy To/Referring/Attending: KRISTINA MCGINNIS MD Other External # FINAL DIAGNOSIS A. COLON, SIGMOID, POLYP, POLYPECTOMY: -- HYPERPLASTIC POLYP. Electronically Signed Out By FRENCH SILVER MD, PhD/RCO By the signature on this report, the individual or group listed as making the Final Interpretation/Diagnosis certifies that they have reviewed this case. Diagnostic interpretation performed at [address] [place] [address] Clinical History: Physician Contact Number: [phone] Fixative (A): Formalin Clinical Diagnosis History FAMILY AND PERSONAL HISTORY OF POLYPS Specimens Submitted As: A: SIGMOID POLYP Gross Description: Received in formalin, labeled with the patient's name and hospital number and sigmoid polyp, is one light cazares polypoid, soft tissue fragment measuring 0.3 x 0.2 x 0.2 cm. The specimen is submitted in toto in one cassette. LMP lmp/06/02/2022 [facility] Department of Pathology [address] [place] [address] Normal [facility] Comment on above: Performed By: #### [facility] #### [facility] Surgical Pathology Department [address] [place] [address] CT Cardiac Scoring[address] 022 CT Cardiac Scoring Please click on the link to view the study images Normal [facility] Work Phone: CT Cardiac Scoring Normal [facility] Work Phone: Medicare Annual Wellness Vis iton 04-27-2022 Medicare Annual Wellness Visit *Chief Complaint MCW History of Present Illness The patient is being seen for the subsequent annual wellness visit. Past Medical, Surgical and Family History: reviewed and updated in chart. Interval History: Patient has had 1 previous hospitalizations. Medications and Supplements: Review of all medications by a prescribing practitioner or clinical pharmacist (such as prescriptions, OTCs, herbal therapies and supplements) documented in the medical record. No, the patient is not using opioids. Health Risk Assessment:. Paper HRA completed by patient and scanned into chart. Patient Self Assessment of Health Status: good. Tobacco use: Non-User Alcohol use: Non-User, As noted in social history Illicit drug use: Non-User Current diet: well balanced diet. Exercise Frequency: regularly. Depression/Suicide Screening: . During the past 2 weeks, the patient has not felt down, depressed or hopeless. During the past 2 weeks, the patient has not felt little interest or pleasure in doing things. Hearing Impairment: none. Cognitive Impairment: No cognitive impairment observed. Bathing: performs independently. Dressing: performs independently. Walking: performs independently. Toileting: performs independently. Feeding: performs independently. Personal Hygiene: performs independently. Bowels: continent. Bladder: continent. Managing Finances: performs independently. Shopping: performs independently. Managing Medications: performs independently. Housework / Basic Home Maintenance: performs independently. Handling Transportation: performs independently. Preparing Meals: performs independently. Using the Telephone/ Communication Devices: performs independently. Falls Risk Screening:. REBA has not fallen in the last 6 months. Home safety risk factors: none. Advance directives:. Advance Care Planning discussed and documented in the medical record, patient did not wish or was not able to name a surrogate decision maker or provide an advance care plan. Patient has living will. Patient has healthcare POA. had br ca and on aromatsse and had benign LLL lung mass removed otherwise Since the last office visit there have been no interval operations, hospitalizations, important illnesses or injuries. heart monitor is negative recc shingrix chol is borderline at 187 and no risk, consider card calc score for risk strat. Multinodular goiter palpates normally Review of Systems General-no fatigue weight to within 10 pounds ENT no problems with vision swallowing Cardiac no chest pains palpitations change in exercise tolerance or capacity Pulmonary no cough shortness of breath GI no heartburn or abdominal pain Musculoskeletal no joint pains *Active Problems Benign breast lumps, right (610.2) (N60.21) Estrogen receptor positive status (ER+) (V86.0) (Z17.0) Malignant neoplasm of breast in female, estrogen receptor positive, unspecified laterality, unspecified site of breast (174.9,V86.0) (C50.919,Z17.0) Medicare annual wellness visit, subsequent (V70.0) (Z00.00) Multinodular non-toxic goiter (241.1) (E04.2) Palpitations (785.1) (R00.2) Screening for breast cancer (V76.10) (Z12.39) Past Medical History History of Abnormal mammogram of left breast (793.80) (R92.8) History of lump of left breast (V13.89) (Z87.898) Resolved Date: 27 Apr 2022 History of Pain of right hand (729.5) (M79.641) Surgical History History of Breast biopsy Family History Family history of malignant neoplasm of breast (V16.3) (Z80.3) Family history of throat cancer (V16.0) (Z80.0) Family history of hypertension (V17.49) (Z82.49) Family history of lymphoma (V16.7) (Z80.7) Family history of malignant neoplasm of breast (V16.3) (Z80.3) Family history of hypertension (V17.49) (Z82.49) Family history of leukemia (V16.6) (Z80.6) Family history of malignant neoplasm of colon (V16.0) (Z80.0) Social History No alcohol use Non-smoker (V49.89) (Z78.9) *Allergies Naprosyn Hivkatie;; Recorded By: Dolores Duke; 04/23/2020 8:15:29 AM *Current Meds Medication NameInstruction Anastrozole 1 MG Oral TabletTAKE 1 TABLET DAILY. Calcium 600 600 MG Oral TabletTAKE 2 TABLETS DAILY. Immunizations Hepatitis B --- Series1: 22-Dec-1994 (44y); Series2: 19-Jan-1995 (44y); Series3: 23-Jun-1995 (44y) Influenza --- Series1: Sep 11 2007 12:00AM (56y); Series2: Oct 15 2009 12:00AM (58y); Series3: Jul 30 2014 12:00AM (63y); Series4: 07-Aug-2019 (68y); Series5: 06-Jul-2020 (69y); Series6: 06-Jul-2020 (69y); Series7: Jun 23 2021 12:00AM (70y) Moderna COVID-19 Vaccine 100 MCG/0.5ML Intramuscular Suspension --- Series1: Jan 06 2021 12:00AM (70y); Series2: Feb 04 2021 12:00AM (70y); Series3: Sep 16 2021 12:00AM (70y) PCV --- Series1: 22-Sabino-2018 (67y) PPSV --- Series1: 22-Apr-2019 (68y) Tdap --- Series1: 20-Apr-2018 (67y) Patient Care Team Care Team MemberRoleSpecialtyOffice Number Ras CHRISTIANSEN, Kristina Phipps (more content not included)... Normal [facility] Tobacco Screening.on 022 Adult depression screening assessment No [facility] Work Phone: Fall risk assessment a) No falls within the last year [facility] Work Phone: Tobacco use status [facility] b) No [facility] Work Phone: CANCER GENETICS (LAB SEND OU T)Ordered By: Pavan Benton on 02-17-2022 Cancer Genetics (Lab Sendout Only) track # [id number] [facility] Cholesterol in VLDL [Mass/Vo l]on 11-08-2021 VLDL Cholesterol 23 mg/dL 5-40 [facility] Serum or plasma cholesterol in HDL measurement (mass/volume)on 11-08-2021 Cholesterol in HDL [Mass/Vol] 54 mg/dL >40 [facility] Comment on above: The drugs N-Acetylcy steine and Metamizole may falsely depress this assay. Reference Range HDL <40 mg/dL Low HDL Cholesterol HDL >or= 60 mg/dL High HDL Cholesterol Serum or plasma low density lipoprotein (LDL) cholesterol measurement (mass/volume)on 11-08-2021 Cholesterol in LDL [Mass/Vol] 187 mg/dL High 0-130 [facility] Trichomonas screening teston 11-08-2021 Cholesterol [Mass/Vol] 264 mg/dL High <200 [facility] Comment on above: <200 mg/dL Desirable 200-240 mg/dL Borderline >240 mg/dL High Risk Triglyceride [Mass/Vol] 113 mg/dL <199 [facility] Comment on above: The drugs N-Acetylcy steine and Metamizole may falsely depress this assay.Serum Triglycerides Reference Interval Normal <150 mg/dL Borderline high 150 - 199 mg/dL High 200 - 499 mg/dL Very High > or = 500 mg/dL COVID-19, MOLECULARon 12-08- 2021 SARS-CoV-2 (COVID-19) RNA BRII+probe Ql (Unsp spec) Not detected Normal Not Detected [facility] Comment on above: Result Comment: This test was performed under the FDA's Emergency Use Authorization (EUA). Testing was performed using the TaqPath?? RT-PCR COVID-19 Assay. This test has not been approved for use in asymptomatic patients and its performance in this patient population has not been evaluated. Negative results do not rule out the presence of SARS-CoV-2/COVID-19. Fact sheets for this EUA can be found at the following links: For Healthcare Providers: https://www.fda.gov/media/849300/download For Patients: https://www.fda.gov/media/488239/download Performed By: #### L [id number] #### [facility] [address] [place] [address] Justo Pettit M.D. [id number] COVID-19, MOLECULARon 2020 SARS-CoV-2 (COVID-19) RNA BRII+probe Ql (Unsp spec) Not detected Normal Not Detected [facility] Comment on above: Result Comment: This test was performed under the FDA's Emergency Use Authorization (EUA). Testing was performed using the TaqPath? RT-PCR COVID-19 Assay. This test has not been approved for use in asymptomatic patients and its performance in this patient population has not been evaluated. Negative results do not rule out the presence of SARS-CoV-2/COVID-19. Fact sheets for this EUA can be found at the following links: For Healthcare Providers: https://www.fda.gov/media/919363/download For Patients: https://www.fda.gov/media/142318/download Performed By: #### L [id number] #### [facility] [address] [place] [address] Justo Pettit M.D. [id number] No Panel Informationon 06-09 -Medical [facility] Work Phone: Normal [facility] Work Phone: Please click on the link to view the study images Normal [place] [facility] Work Phone: [facility] Surgical Pathology Depar tmenton 06-09-2021 [facility] Surgical Pathology Department Name REBA BECKFORD Pathologist: CARSON REYNA MD Date of Procedure: 06/09/2021 Date Received: 06/09/2021 Date Reported 06/11/2021 Submitting Physician: KRISTINA MCGINNIS MD Location: Copy To/Referring/Attending: MICAH RICO MD Other External # Procedures/Addenda Present FINAL DIAGNOSIS A. LEFT BREAST, ULTRASOUND GUIDED CORE NEEDLE BIOPSY: -- INVASIVE DUCTAL CARCINOMA, GRADE 2-3, SEE NOTE. Note: In this limited sample, the invasive carcinoma measures up to 0.5 cm in greatest dimension. ER, [place] and HER2 will be reported in an addendum. Slides are reviewed at the breast case review consensus conference via Zoom meeting. The gross and/or microscopic findings were reviewed in conjunction with pathology resident[facility] Electronically Signed Out By CARSON REYNA MD/SXS By the signature on this report, the individual or group listed as making the Final Interpretation/Diagnosis certifies that they have reviewed this case. Addendum/Procedures: Special Oncology Report Date Ordered: 06/14/2021 Status: Signed Out Date Complete: 06/14/2021 Date Reported: 06/14/2021 Addendum Diagnosis Surgical/Block Number: [id number] Specimen Site: Left breast Specimen Type: Core Needle Biopsy Time of Specimen Removal: 10:24 Time Placed in 10% NBF : 10:25 Duration of Fixation : 6-72 hours INTERPRETATION: ESTROGEN RECEPTOR (CLONE SP1): POSITIVE Percentage with Nuclear Stainin% Intensity of Staining: Moderate PROGESTERONE RECEPTOR (CLONE 1E2): POSITIVE Percentage with Nuclear Stainin% Intensity of Staining: Moderate to strong HER2 (CLONE 4B5): EQUIVOCAL (2+): DUAL AMAIRANI assay for HER2 Gene Amplification is in progress. The result will be issued in an addendum. COMMENT: Internal positive staining controls were identified in this specimen. RANGES FOR INTERPRETATION: For ER/[place]: Ranges for interpretation: Invasive carcinoma cells exhibiting greater than or equal to 10% nuclear staining are considered POSITIVE. Invasive carcinoma cells exhibiting less than 10%, but greater than or equal to 1% are considered LOW POSITIVE. Invasive carcinoma cells exhibiting less than 1% staining are considered NEGATIVE. (Reference: Arch Pathol Lab Med. doi:10.5858/arpa. [id number]) The stated steroid receptor activity was derived from rabbit monoclonal antibody staining on formalin fixed, paraffin embedded specimens, unless otherwise noted. The method employed was a standard peroxidase labeled polymer detection system. Each assay is performed using appropriate positive and negative internal controls. For HER2: Ranges for interpretation: POSITIVE (3+): greater than or equal to 10% tumor cells with intense and uniform staining; EQUIVOCAL (2+): weak to moderate complete immunoreactivity in >10% of tumor cells or circumferential intense staining in less than or equal to 10% of cells; and NEGATIVE (1+): Faint weak immunoreactivity in >10% of tumor cells, but only a portion of the membrane is positive; NEGATIVE (0): No immunoreactivity or immunoreactivity in less than or equal to 10% of tumor cells. All tests are performed using a [place] [employer] HER-2/asif (4B5) rabbit monoclonal primary antibody on formalin fixed, paraffin embedded tissue, unless otherwise noted. Only invasive carcinoma is evaluated using the ASCO/CAP scoring system (Arch Pathol Lab Med 2018; 142: 7727-6638) unless otherwise specified. External cell culture and tissue controls stain appropriately. Electronically Signed Out By KAITLIN PARKER MD/RAO By the signature on this report, the individual or group listed as making the Final Interpretation/Diagnosis certifies that they have reviewed this case. Special Oncology Report Date Ordered: 06/18/2021 Status: Signed Out Date Complete: 06/18/2021 Date Reported: 06/18/2021 Addendum Diagnosis INFORM HER2 DUAL AMAIRANI FOR DETECTION OF HER-2 GENE AMPLIFICATION [INFORM HER2 Dual AMAIRANI DNA Probe Cocktail Assay from [employer]]. Results are expressed as the averaged ratio HER2/chromosome 17 signals in 20 nuclei. Source of Specimen: Left breast Paraffin Block No.: [id number] Time of specimen removal: 10:24 Time into formalin fixative: 10:25 Duration of fixation: unless otherwise noted, 6-48 hours fixation TEST RESULTS: Number of tumor cells counted: 20 Number of observers: 1 Average number of Her-2 signals/nucleus: 1.9 Average number of CEP 17 signals/nucleus: 2.9 Ratio of average Her-2/CEP 17: 0.66 INTERPRETATION: NEGATIVE ( NON-AMPLIFIED) COREMAKING MACHINE OPERATOR: Dr. Ginette Reeder NOTE: Patient's with a HER2/CEP 17 Dual AMAIRANI ratio of greater than or equal to 2.0 were considered eligible for treatment in the adjuvant trastuzmab trials. (References: Brandyn et al. Breast Cancer Res Treat 94:S5, 2005 (Supp 1; Abs1); Kiet et al, N Engl J Med 353: (more content not included)... Normal [facility] Comment on above: Performed By: #### U [facility] #### [facility] Surgical Pathology Department [id number] [facility] [address] Ultrasound Limited [place] 06-03-2021 MG Breast Screening Normal [facility] Work Phone: Mamm - Screening Mammogram w / Tomosynthesison 05-24-2021 MG Breast Screening Normal [facility] Work Phone: Laboratory - Chemistry and C hemistry - challengeon 04-26-2021 Albumin BCP dye [Mass/Vol] 3.9 g/dL 3.4 - 5.0 [facility] Work Phone: ALP [Catalytic activity/Vol] 72 U/L 33 - 136 [facility] Work Phone: ALT With P-5'-P [Catalytic activity/Vol] 20 U/L 7 - 45 [facility] Work Phone: Comment on above: Patients treated wit h Sulfasalazine may generate falsely decreased results for ALT. Anion gap [Moles/Vol] 10 mmol/L 10 - 20 [facility] Work Phone: AST With P-5'-P [Catalytic activity/Vol] 22 U/L 9 - 39 [facility] Work Phone: Bilirubin [Mass/Vol] 0.7 mg/dL 0.0 - 1.2 - [facility] Work Phone: Calcium [Mass/Vol] 8.7 mg/dL 8.6 - 10.3 -[facility] Work Phone: Chloride [Moles/Vol] 109 mmol/L above high threshold 98 - 107 [facility] Work Phone: CO2 [Moles/Vol] 27 mmol/L 21 - 32 -[facility] Work Phone: Creatinine [Mass/Vol] 0.54 mg/dL See Below [facility] Work Phone: Comment on above: Reference Range: 0.5 0 - 1.05 Glucose [Mass/Vol] 94 mg/dL 74 - 99 -[facility] Work Phone: Potassium [Moles/Vol] 3.6 mmol/L 3.5 - 5.3 - [facility] Work Phone: Protein [Mass/Vol] 6.8 g/dL 6.4 - 8.2 -[facility] Work Phone: Sodium [Moles/Vol] 142 mmol/L 136 - 145 -[facility] Work Phone: Urea nitrogen [Mass/Vol] 10 mg/dL 6 - 23 -[facility] Work Phone: Laboratory - Hematology and Cell countson 04-26-2021 Erythrocyte distribution width (RBC) [Ratio] 13.1 % See Below [facility] Work Phone: Comment on above: Reference Range: 11. 5 - 14.5 Hematocrit (Bld) [Volume fraction] 44.6 % See Below [facility] Work Phone: Comment on above: Reference Range: 36. 0 - 46.0 Hemoglobin (Bld) [Mass/Vol] 14.8 g/dL See Below [facility] Work Phone: Comment on above: Reference Range: 12. 0 - 16.0 MCHC (RBC) [Mass/Vol] 33.1 g/dL See Below [facility] Work Phone: Comment on above: Reference Range: 32. 0 - 36.0 MCV (RBC) [Entitic vol] 90 fL 80 - 100 [facility] Work Phone: Platelets (Bld) [#/Vol] 230 10*3/uL 150 - 450 [facility] Work Phone: RBC (Bld) [#/Vol] 4.95 {x10E12/L} See Below [facility] Work Phone: Comment on above: Reference Range: 4.0 0 - 5.20 WBC (Bld) [#/Vol] 4.5 10*3/uL 4.4 - 11.3 [facility] Work Phone: No Panel Informationon 04-26 >60 >60 [facility] Work Phone: Comment on above: CALCULATIONS OF SAKSHI MATED GFR ARE PERFORMED USING THE MDRD STUDY EQUATION FOR THE IDMS-TRACEABLE CREATININE METHODS. CLIN CHEM 2007;53:766-72 TSH - Thyroid Stimulating Ho [facility], Serumon 04-26-2021 TSH Qn 1.83 m[IU]/L See Below [facility] Work Phone: Comment on above: Reference Range: 0.4 4 - 3.98 TSH testing is performed using different testing methodology at [facility] than at other [facility] hospitals. Direct result comparisons should only be made within the same method. Tobacco Screening.on 021 Fall risk assessment b) One or more fall s in the last year [facility] Work Phone: Tobacco use status CPHS b) No [facility] Work Phone: Hematologyon 04-23-2020 Hematocrit (Bld) [Volume fraction] 43.6 % See Below [facility] Work Phone: Comment on above: Reference Range: 36. 0 - 46.0 Hemoglobin (Bld) [Mass/Vol] 15.0 g/dL See Below [facility] Work Phone: Comment on above: Reference Range: 12. 0 - 16.0 MCV (RBC) [Entitic vol] 87 fL 80 - 100 [facility] Work Phone: Platelets (Bld) [#/Vol] 215 {x10E9/L} 150 - 450 [facility] Work Phone: RBC (Bld) [#/Vol] 5.01 {x10E12/L} See Below [facility] Work Phone: Comment on above: Reference Range: 4.0 0 - 5.20 WBC (Bld) [#/Vol] 5.3 {x10E9/L} 4.4 - 11.3 [facility] Work Phone: Metabolic Panelon 04-23-2020 ALP [Catalytic activity/Vol] 68 U/L 33 - 136 [facility] Work Phone: Anion gap [Moles/Vol] 8 mmol/L below low threshold 10 - 20 [facility] Work Phone: Bilirubin [Mass/Vol] 0.6 mg/dL 0.0 - 1.2 - [facility] Work Phone: Calcium [Mass/Vol] 8.8 mg/dL 8.6 - 10.3 [facility] Work Phone: Chloride [Moles/Vol] 107 mmol/L 98 - 107 [facility] Work Phone: CO2 [Moles/Vol] 29 mmol/L 21 - 32 -[facility] Work Phone: Creatinine [Mass/Vol] 0.60 mg/dL See Below [employer] [facility] Work Phone: Comment on above: Reference Range: 0.5 0 - 1.05 Glucose [Mass/Vol] 84 mg/dL 74 - 99 [employer] [facility] Work Phone: Potassium [Moles/Vol] 3.3 mmol/L below low threshold 3.5 - 5.3 [facility] Work Phone: Protein [Mass/Vol] 6.6 g/dL 6.4 - 8.2 [employer] [facility] Work Phone: Sodium [Moles/Vol] 141 mmol/L 136 - 145 [employer] [facility] Work Phone: Urea nitrogen [Mass/Vol] 15 mg/dL 6 - 23 [facility] Work Phone: Otheron 04-23-2020 Albumin BCP dye [Mass/Vol] 3.8 g/dL 3.4 - 5.0 [facility] Work Phone: ALT With P-5'-P [Catalytic activity/Vol] 20 U/L 7 - 45 [facility] Work Phone: Comment on above: Patients treated wit h Sulfasalazine may generate falsely decreased results for ALT. AST With P-5'-P [Catalytic activity/Vol] 21 U/L 9 - 39 [facility] Work Phone: Erythrocyte distribution width (RBC) [Ratio] 13.9 % See Below [facility] Work Phone: Comment on above: Reference Range: 11. 5 - 14.5 MCHC (RBC) [Mass/Vol] 34.5 g/dL See Below [facility] Work Phone: Comment on above: Reference Range: 32. 0 - 36.0 >60 >60 [facility] Work Phone: Comment on above: CALCULATIONS OF SAKSHI MATED GFR ARE PERFORMED USING THE MDRD STUDY EQUATION FOR THE IDMS-TRACEABLE CREATININE METHODS. CLIN CHEM 2007;53:766-72 TSH - Thyroid Stimulating Ho Luca rockon 04-23-2020 TSH Qn 2.01 {mIU/L} See Below [facility] Work Phone: Comment on above: Reference Range: 0.4 4 - 3.98 TSH testing is performed using different testing methodology at [facility] than at other [facility] hospitals. Direct result comparisons should only be made within the same method. MA Mamm Screen w/CAD if perf ormed bilaton 05-22-2019 MA Mamm Screen w/CAD if performed bilat Exam Date/Time: 05/21/2019 10:02 EDT Reason for Exam: THYROID NODULE SCREENING;Screening Report STUDY: Digital mammography screening; 05/21/2019 10:02 am ACCESSION NUMBER(S): [id number] ORDERING CLINICIAN: Kristina Mcginnis INDICATION: Screening. COMPARISON: Comparison is made to prior digital mammograms dated 05/16/2018 and 05/15/2017 FINDINGS: CC and MLO 2D digital mammographic images of the bilateral breasts were obtained. There are areas of scattered fibroglandular tissue. No discrete mass or focal asymmetry is identified. No suspicious microcalcifications or foci of architectural distortion are seen. There has been no significant change. This study was interpreted with CAD. IMPRESSION: No mammographic evidence of malignancy. BI-RADS CATEGORY: Category: 1 - Negative. Recommendation: Normal Interval Follow-up, Over Age 40. Recall Interval: 12 Months. Breast Density: Scattered Fibroglandular Density. FINAL REPORT Dictated: 05/22/2019 8:52 am Micah Rico MD Signed (Electronic Signature): 05/22/2019 8:52 am Signed by: Micah Rico MD Technologist: JULIANA Assessment: BI-RADS Category 1-Negative Recommendation: Normal interval follow-up Normal [facility] US Thyroidon 05-21-2019 US Thyroid Exam Date/Time: 05/21/2019 09:02 EDT Reason for Exam: THYROID NODULE;Lump Report STUDY: US Thyroid 05/21/2019 9:02 am INDICATION: 68 y/o F with Lump. COMPARISON: None. ACCESSION NUMBER(S): [id number] ORDERING CLINICIAN: Kristina Mcginnis TECHNIQUE: Multiple grayscale ultrasonographic images were obtained through the thyroid. FINDINGS: RIGHT THYROID LOBE: The right thyroid measures at 4.6 x 2.2 x 2.6 cm. The right lobe of the thyroid is diffusely heterogeneous and replaced with confluent nodules.. LEFT THYROID LOBE: The left thyroid measures at 4.7 x 1.7 x 1.8 cm. The left lobe of the thyroid is diffusely heterogeneous and replaced with confluent nodules. ISTHMUS: The isthmus measures at 3 mm in thickness. CERVICAL LYMPHADENOPATHY: None. IMPRESSION: Diffusely heterogeneous thyroid replaced with confluent nodules FINAL REPORT Dictated: 05/21/2019 1:13 pm Micah Rico MD Signed (Electronic Signature): 05/21/2019 1:13 pm Signed by: Micah Rico MD Technologist: BS Normal [facility] Hep C Abon 04-16-2019 Hep C Ab 0.1 s/co ratio Normal 0.0-0.9 [facility] Comment on above: Result Comment: Nega tive: < 0.8 Indeterminate: 0.8 - 0.9 Positive: > 0.9 The CDC recommends that a positive HCV antibody result be followed up with a HCV Nucleic Acid Amplification test (246643). Performed At: [facility] [address] [id number] Benita Solares PhD Ph:[phone] Performed By: #### 2 [id number] #### [place] Send Outs Subsection [facility] [place] [id number] Auto Diffon 04-15-2019 Basophils (Bld) [#/Vol] 0.1 E3/mcL Normal 0.0-0.2 [facility] Comment on above: Order Comment: Order Added by Discern Expert. Performed By: #### 2 [id number] #### [place] [employer] [address] [place] [id number] Basophils/100 WBC (Bld) 2.1 % High 0.0-2.0 [facility] Comment on above: Order Comment: Order Added by Discern Expert. Performed By: #### 2 [id number] #### [place] [employer] [address] [place] [address] Eos Absolute 0.1 E3/mcL Normal 0.0-0.7 [facility] Comment on above: Order Comment: Order Added by Discern Expert. Performed By: #### 2 [id number] #### [place] [employer] [address] [place] [address] Eosinophils/100 WBC (Bld) 3.1 % Normal 0.0-11.0 [facility] Comment on above: Order Comment: Order Added by Discern Expert. Performed By: #### 2 [id number] #### [place] [employer] [address] [place] [address] Lymphocytes (Bld) [#/Vol] 1.1 E3/mcL Low 1.2-3.4 [facility] Comment on above: Order Comment: Order Added by Discern Expert. Performed By: #### 2 [id number] #### [place] [employer] [address] [place] [address] Lymphocytes/100 WBC (Bld) 27.7 % Normal 20.0-55.0 [facility] Comment on above: Order Comment: Order Added by Discern Expert. Performed By: #### 2 [id number] #### [place] [employer] [address] [place] [address] Weld Absolute 0.3 E3/mcL Normal 0.0-0.7 [facility] Comment on above: Order Comment: Order Added by Discern Expert. Performed By: #### 2 [id number] #### [place] [employer] [address] [place] [address] Monocytes/100 WBC (Bld) 7.8 % Normal 0.0-10.0 [facility] Comment on above: Order Comment: Order Added by Discern Expert. Performed By: #### 2 [id number] #### [place] [employer] [address] [place] [address] Neutro Absolute 2.3 E3/mcL Normal 1.4-6.5 [facility] Comment on above: Order Comment: Order Added by Discern Expert. Performed By: #### 2 [id number] #### [place] [employer] [address] [place] [address] Neutro Auto 59.3 % Normal 37.0-75.0 [facility] Comment on above: Order Comment: Order Added by Discern Expert. Performed By: #### 2 [id number] #### [place] [employer]ias[employer] [address] [place] [address] CBC w/ Auto Diffon 9 Erythrocyte distribution width (RBC) [Ratio] 13.5 % Normal 11.5-14.5 [facility] Comment on above: Performed By: #### 2 [id number] #### [place] [facility]ias[facility] [place] [id number] Hematocrit (Bld) [Volume fraction] 45.2 % Normal 36.0-48.0 [facility] Comment on above: Performed By: #### 2 [id number] #### [place] [employer] [address] [place], [place] [id number] Hemoglobin (Bld) [Mass/Vol] 15.2 g/dL Normal 12.0-16.0 [facility] Comment on above: Performed By: #### 2 151305 #### [place] [employer] [place] [id number] MCH (RBC) [Entitic mass] 30.1 pg Normal 27.0-31.0 [facility] Comment on above: Performed By: #### 2 828139 #### [place] [facility]ias[facility] [place] [id number] MCHC (RBC) [Mass/Vol] 33.7 g/dL Normal 33.0-37.[address] [facility] Comment on above: Performed By: #### 2 [id number] #### [place] [employer] [address] [place] [address] MCV (RBC) [Entitic vol] 89.2 fL Normal 78.0-100.0 [facility] Comment on above: Performed By: #### 2 [id number] #### [place] [employer] [address] [place] [address] Platelet mean volume (Bld) [Entitic vol] 8.6 fL Normal 7.4-11.0 [facility] Comment on above: Performed By: #### 2 [id number] #### [place] [employer] [address] [place] [address] Platelets (Bld) [#/Vol] 233 E3/mcL Normal 130-400 [facility] Comment on above: Performed By: #### 2 [id number] #### [place] [employer] [place] [address] RBC (Bld) [#/Vol] 5.07 E6/mcL Normal 3.90-5.40 [facility] Comment on above: Performed By: #### 2 [id number] #### [place] [employer] [address] [place] [address] WBC (Bld) [#/Vol] 3.8 E3/mcL Normal 3.6-11.0 [facility] Comment on above: Performed By: #### 2 [id number] #### [place] [employer] [address] [place] [address] CMPon 04-15-2019 Albumin [Mass/Vol] 3.7 g/dL Normal 3.4-5.0 [facility] Comment on above: Performed By: #### 2 [id number] #### [place] [employer] [address] [place], [place] [phone] Albumin/Globulin [Mass ratio] 1.3 {ratio} Normal 1.1-1.9 [facility] Comment on above: Performed By: #### 2 [id number] #### [facility] [employer] [address] [place] [address] Alk Phos 80 Int._Unit/L Normal 33-136 [facility] Comment on above: Performed By: #### 2 196971 #### [place] [employer] [address] [place] [address] ALT [Catalytic activity/Vol] 20 Int._Unit/L Normal 7-45 [facility] Comment on above: Performed By: #### 2 [id number] #### [facility] [employer] [address] [place] [address] Anion gap [Moles/Vol] 11 mmol/L Normal 10-[address] [facility] Comment on above: Performed By: #### 2 [id number] #### [facility] [employer] [address] [place], [place] [phone] AST [Catalytic activity/Vol] 20 Int._Unit/L Normal 9-39 [facility] Comment on above: Performed By: #### 2 980618 #### [place] [employer] [address] [place] [address] Bili Total 0.69 mg/dL Normal 0.00-1.20 [facility] Comment on above: Performed By: #### 2 134133 #### [place] [employer] [address] [place] [address] Calcium [Mass/Vol] 8.8 mg/dL Normal 8.6-10.3 [facility] Comment on above: Performed By: #### 2 935841 #### [facility] [employer] [address] [place] [address] Chloride [Moles/Vol] 107 mmol/L Normal 98-107 [facility] Comment on above: Performed By: #### 2 633258 #### [facility] [employer] [address] [place] [address] CO2 [Moles/Vol] 27.0 mmol/L Normal 21.0-32.0 [facility] Comment on above: Performed By: #### 2 508354 #### [facility] [employer] [address] [place] [address] Creatinine [Mass/Vol] 0.6 mg/dL Normal 0.5-1.[address] [facility] Comment on above: Performed By: #### 2 [id number] #### [place] [employer] [address] [place] [address] Globulin (S) [Mass/Vol] 3.0 g/dL Normal 2.0-4.0 [facility] Comment on above: Performed By: #### 2 [id number] #### [place] [employer] [address] [place] [address] Glucose [Mass/Vol] 92 mg/dL Normal 70-99 [facility] Comment on above: Performed By: #### 2 060422 #### [place] [employer] [address] [place] [address] Potassium [Moles/Vol] 3.6 mmol/L Normal 3.5-5.[address] [facility] Comment on above: Performed By: #### 2 537457 #### [place] [employer] [address] [place] [address] Protein [Mass/Vol] 6.5 g/dL Normal 6.4-8.2 [facility] Comment on above: Performed By: #### 2 [id number] #### [place] [employer] [address] [place] [address] Sodium [Moles/Vol] 141 mmol/L Normal 136-145 [facility] Comment on above: Performed By: #### 2 613606 #### [place] [employer] [address] [place] [address] Urea nitrogen [Mass/Vol] 9 mg/dL Normal 6-23 [facility] Comment on above: Performed By: #### 2 330644 #### [place] [employer] [address] [place] [address] Urea nitrogen/Creatinine [Mass ratio] 15.0 ratio Normal 5.4-30.0 [facility] Comment on above: Performed By: #### 2 [id number] #### [place] [employer] [address] [place] [address] Lipid Profileon 04-15-2019 Cholesterol [Mass/Vol] 185 mg/dL Normal 0-199 [facility] Comment on above: Result Comment: TOTA L CHOLEESTEROL: <200 NORMAL 200 - 239 BORDERLINE HIGH >240 HIGH Performed By: #### 3 [id number] #### [place] [employer] [address] [place] [address] Cholesterol in HDL [Mass/Vol] 42 mg/dL Normal 40-60 [facility] Comment on above: Performed By: #### 3 [id number] #### [place] [employer] [address] [place] [address] Cholesterol in LDL [Mass/Vol] 120 mg/dL Normal 0-130 [facility] Comment on above: Result Comment: <100 OPTIMAL 100-129 NEAR / ABOVE OPTIMAL 130-159 BORDERLINE HIGH 160-189 HIGH >190 VERY HIGH CALC LDL NOT VALID WHEN TRIGLYCERIDE IS >400 MG/DL Performed By: #### [id number] #### [employer] [address] [place] [id number] Cholesterol in VLDL [Mass/Vol] 23 mg/dL Normal 0-40 [facility] Comment on above: Performed By: #### [id number] #### [employer] [employer] [facility] [place] [address] Triglyceride [Mass/Vol] 115 mg/dL Normal 0-149 [facility] Comment on above: Result Comment: AGE DESIRABLE BORDERLINE HIGH 91 D - 9 Y 0 - 74 75 - 99 > 100 10 - 19 Y 0 - 89 90 - 129 > 130 20 -24 Y 0 - 114 115 - 149 > 150 > 25 0 - 149 150 - 199 200 - 499 Performed By: #### [id number] #### [employer] [address] [place] [id number] eGFRon 04-15-2019 GFR/1.73 sq M predicted among non-blacks MDRD (S/P/Bld) [Vol rate/Area] mL/min/{1.73_m2} Normal [facility] Comment on above: Order Comment: Order added by Discern Expert. Performed By: #### [id number] #### [place] [employer] [address] [place] [id number] Vital Signs Date Time Vital Sign Value Performing Clinician Facility 08-21-2025 13:24-0400 Body temperature 96.4 [degF] Dr. Kristina Mcginnis MD Work Phone: [facility] 08-21-2025 13:24-0400 Diastolic blood pressure 69 mm[Hg] Dr. Kristina Mcginnis MD Work Phone: [facility] 08-21-2025 13:24-0400 Heart rate 65 /min Dr. Kristina Mcginnis MD Work Phone: [facility] 08-21-2025 13:24-0400 Respiratory rate 16 /min Dr. Kristina Mcginnis MD Work Phone: [facility] 08-21-2025 13:24-0400 SaO2% (BldA) [Mass fraction] 100 % Dr. Kristina Mcginnis MD Work Phone: [facility] 08-21-2025 13:24-0400 Systolic blood pressure 127 mm[Hg] Dr. Kristina Mcginnis MD Work Phone: [facility] 08-21-2025 10:54-0400 Body mass index (BMI) [Ratio] 27.3 kg/m2 Dr. Kristina Mcginnis MD Work Phone: [facility] 08-21-2025 10:54-0400 Body temperature 97.8 [degF] Dr. Kristina Mcginnis MD Work Phone: [facility] 08-21-2025 10:54-0400 Body weight 81.[address] Kristina Mcginnis MD Work Phone: 4(437)559-741745 [place] [address] 08-21-2025 10:54-0400 Diastolic blood pressure 80 mm[Hg] Dr. Kristina Mcginnis MD Work Phone: 6(367)834-193445 [place] [address] 08-21-2025 10:54-0400 Heart rate 71 /min Dr. Kristina Mcginnis MD Work Phone: 9(595)972-292845 [place] [address] 08-21-2025 10:54-0400 Respiratory rate 16 /min Dr. Kristina Mcginnis MD Work Phone: 7(770)966-297445 [place] [address] 08-21-2025 10:54-0400 SaO2% (BldA) [Mass fraction] 97 % Dr. Kristina Mcginnis MD Work Phone: 9(741)377-803045 [place] [address] 08-21-2025 10:54-0400 Systolic blood pressure 158 mm[Hg] Dr. Kristina Mcginnis MD Work Phone: [facility] 07-31-2025 11:11-0400 Body height 172.[address] Kristina Mcginnis MD Work Phone: 0(316)725-430645 [place] [address] 07-31-2025 11:11-0400 Body mass index (BMI) [Ratio] 27.3 kg/m2 Dr. Kristina Mcginnis MD Work Phone: 7(155)221-148945 [place] [address] 07-31-2025 11:11-0400 Body temperature 98 [degF] Dr. Kristina Mcginnis MD Work Phone: [facility] 07-31-2025 11:11-0400 Body weight 81.[address] Kristina Mcginnis MD Work Phone: [facility] 07-31-2025 11:11-0400 Diastolic blood pressure 77 mm[Hg] Dr. Kristina Mcginnis MD Work Phone: [facility] 07-31-2025 11:11-0400 Heart rate 60 /min Dr. Kristina Mcginnis MD Work Phone: [facility] 07-31-2025 11:11-0400 Respiratory rate 18 /min Dr. Kristina Mcginnis MD Work Phone: 0(787)537-683845 [place] [address] 07-31-2025 11:11-0400 SaO2% (BldA) [Mass fraction] 98 % Dr. Kristina Mcginnis MD Work Phone: 8(592)977-158445 [place] [address] 07-31-2025 11:11-0400 Systolic blood pressure 152 mm[Hg] Dr. Kristina Mcginnis MD Work Phone: 8(835)027-528619 [place] [address] 07-10-2025 12:50-0400 Diastolic blood pressure 51 mm[Hg] Dr. Kristina Mcginnis MD Work Phone: 5(329)877-620645 [place] [address] 07-10-2025 12:50-0400 Heart rate 71 /min Dr. Kristina Mcginnis MD Work Phone: 3(608)930-782145 [place] [address] 07-10-2025 12:50-0400 Respiratory rate 16 /min Dr. Kristina Mcginnis MD Work Phone: 0(174)183-681645 [place] [address] 07-10-2025 12:50-0400 Systolic blood pressure 134 mm[Hg] Dr. Kristina Mcginnis MD Work Phone: 3(060)494-819845 [place] [address] 07-10-2025 11:21-0400 Body height 172.[address] Kristina Mcginnis MD Work Phone: 6(384)097-899245 [place] [address] 07-10-2025 11:21-0400 Body mass index (BMI) [Ratio] 27.1 kg/m2 Dr. Kristina Mcginnis MD Work Phone: 1(086)723-860145 [place] [address] 07-10-2025 11:21-0400 Body temperature 97.5 [degF] Dr. Kristina Mcginnis MD Work Phone: 5(941)886-049245 [place] [address] 07-10-2025 11:21-0400 Body weight 80.[address] Kristina Mcginnis MD Work Phone: [facility] 07-10-2025 11:21-0400 Diastolic blood pressure 86 mm[Hg] Dr. Kristina Mcginnis MD Work Phone: [facility] 07-10-2025 11:21-0400 Heart rate 64 /min Dr. Kristina Mcginnis MD Work Phone: [facility] 07-10-2025 11:21-0400 Respiratory rate 18 /min Dr. Kristina Mcginnis MD Work Phone: [facility] 07-10-2025 11:21-0400 SaO2% (BldA) [Mass fraction] 96 % Dr. Kristina Mcginnis MD Work Phone: [facility] 07-10-2025 11:21-0400 Systolic blood pressure 153 mm[Hg] Dr. Kristina Mcginnis MD Work Phone: [facility] 07-07-2025 10:02-0400 Body height 172.[address] Kristina Mcginnis MD Work Phone: [facility] 07-07-2025 10:02-0400 Body mass index (BMI) [Ratio] 27.1 kg/m2 Dr. Kristina Mcginnis MD Work Phone: [facility] 07-07-2025 10:02-0400 Body temperature 96.8 [degF] Dr. Kristina Mcginnis MD Work Phone: [facility] 07-07-2025 10:02-0400 Body weight 80.[address] Kristnia Mcginnis MD Work Phone: [facility] 07-07-2025 10:02-0400 Diastolic blood pressure 85 mm[Hg] Dr. Kristina Mcginnis MD Work Phone: [facility] 07-07-2025 10:02-0400 Heart rate 64 /min Dr. Kristina Mcginnis MD Work Phone: [facility] 07-07-2025 10:02-0400 Respiratory rate 16 /min Dr. Kristina Mcginnis MD Work Phone: [facility] 07-07-2025 10:02-0400 SaO2% (BldA) [Mass fraction] 98 % Dr. Kristina Mcginnis MD Work Phone: [facility] 07-07-2025 10:02-0400 Systolic blood pressure 164 mm[Hg] Dr. Kristina Mcginnis MD Work Phone: [facility] 06-19-2025 14:01-0400 Body temperature 97.6 [degF] Dr. Kristina Mcginnis MD Work Phone: [facility] 06-19-2025 14:01-0400 Diastolic blood pressure 62 mm[Hg] Dr. Kristina Mcginnis MD Work Phone: 9(651)639-341145 [place] [address] 06-19-2025 14:01-0400 Heart rate 78 /min Dr. Kristina Mcginnis MD Work Phone: 8(330)995-969545 [place] [address] 06-19-2025 14:01-0400 Respiratory rate 16 /min Dr. Kristina Mcginnis MD Work Phone: [facility] 06-19-2025 14:01-0400 SaO2% (BldA) [Mass fraction] 99 % Dr. Kristina Mcginnis MD Work Phone: [facility] 06-19-2025 14:01-0400 Systolic blood pressure 121 mm[Hg] Dr. Kristina Mcginnis MD Work Phone: [facility] 06-19-2025 10:35-0400 Body height 172.[address] Kristina Mcginnis MD Work Phone: [facility] 06-19-2025 10:35-0400 Body mass index (BMI) [Ratio] 27.5 kg/m2 Dr. Kristina Mcginnis MD Work Phone: [facility] 06-19-2025 10:35-0400 Body temperature 97.5 [degF] Dr. Kristina Mcginnis MD Work Phone: [facility] 06-19-2025 10:35-0400 Body weight 82.[address] Kristina Mcginnis MD Work Phone: [facility] 06-19-2025 10:35-0400 Diastolic blood pressure 82 mm[Hg] Dr. Kristina Mcginnis MD Work Phone: [facility] 06-19-2025 10:35-0400 Heart rate 85 /min Dr. Kristina Mcginnis MD Work Phone: [facility] 06-19-2025 10:35-0400 Respiratory rate 16 /min Dr. Kristina Mcginnis MD Work Phone: [facility] 06-19-2025 10:35-0400 SaO2% (BldA) [Mass fraction] 92 % Dr. Kristina Mcginnis MD Work Phone: [facility] 06-19-2025 10:35-0400 Systolic blood pressure 144 mm[Hg] Dr. Kristina Mcginnis MD Work Phone: [facility] 06-14-2025 09:30-0400 Body height 172.7 cm Heriberto Antonietta [employer] MAINTE[employer]CE ENGINEER[employer]INIC MANAGER Work Phone: [facility] 06-14-2025 09:30-0400 Body mass index (BMI) [Ratio] 27.37 kg/m2 Heriberto Antonietta [employer] MAINTENANCE ENGINEER-CLINIC MANAGER Work Phone: [facility] 06-14-2025 09:30-0400 Body temperature 98.2 [degF] Hreiberto Antonietta PL[employer] MAINTENANCE ENGINEER-CLINIC MANAGER Work Phone: [facility] 06-14-2025 09:30-0400 Body weight 81.65 kg Heriberto Antonietta PLANT MAINTENANCE ENGINEER-CLINIC MANAGER Work Phone: [facility] 06-14-2025 09:30-0400 Diastolic blood pressure 73 mm[Hg] Heriberto Antonietta PL[employer] MAINTENANCE ENGINEER-CLINIC MANAGER Work Phone: [facility] 06-14-2025 09:30-0400 Heart rate 79 /min Heriberto Antonietta PL[employer] MAINTENANCE ENGINEER-CLINIC MANAGER Work Phone: [facility] 06-14-2025 09:30-0400 Respiratory rate 18 /min Heriberto Antonietta PLANT MAINTENANCE ENGINEER-CLINIC MANAGER Work Phone: [facility] 06-14-2025 09:30-0400 SaO2% (BldA) [Mass fraction] 95 % Heriberto Barr [employer] MAINTENANCE ENGINEER-CLINIC MANAGER Work Phone: [facility] 06-14-2025 09:30-0400 Systolic blood pressure 135 mm[Hg] Heriberto Antonietta [employer] MAINTENANCE ENGINEER-CLINIC MANAGER Work Phone: [facility] 05-29-2025 12:51-0400 Body temperature 97.5 [degF] Dr. Kristina Mcginnis MD Work Phone: [facility] 05-29-2025 12:51-0400 Diastolic blood pressure 61 mm[Hg] Dr. Kristina Mcginnis MD Work Phone: [facility] 05-29-2025 12:51-0400 Heart rate 68 /min Dr. Kristina Mcginnis MD Work Phone: 3(731)393-545345 [place] [address] 05-29-2025 12:51-0400 Respiratory rate 16 /min Dr. Kristina Mcginnis MD Work Phone: 9(907)839-673845 [place] [address] 05-29-2025 12:51-0400 SaO2% (BldA) [Mass fraction] 98 % Dr. Kristina Mcginnis MD Work Phone: [facility] 05-29-2025 12:51-0400 Systolic blood pressure 137 mm[Hg] Dr. Kristina Mcginnis MD Work Phone: [facility] 05-29-2025 11:06-0400 Body height 172.[address] Kristina Mcginnis MD Work Phone: [facility] 05-29-2025 11:06-0400 Body mass index (BMI) [Ratio] 28 kg/m2 Dr. Kristina Mcginnis MD Work Phone: [facility] 05-29-2025 11:06-0400 Body temperature 98.2 [degF] Dr. Kristina Mcginnis MD Work Phone: [facility] 05-29-2025 11:06-0400 Body weight 83.[address] Kristina Mcginnis MD Work Phone: [facility] 05-29-2025 11:06-0400 Diastolic blood pressure 85 mm[Hg] Dr. Kristina Mcginnis MD Work Phone: [facility] 05-29-2025 11:06-0400 Heart rate 66 /min Dr. Kristina Mcginnis MD Work Phone: [facility] 05-29-2025 11:06-0400 Respiratory rate 18 /min Dr. Kristina Mcginnis MD Work Phone: [facility] 05-29-2025 11:06-0400 SaO2% (BldA) [Mass fraction] 97 % Dr. Kristina Mcginnis MD Work Phone: [facility] 05-29-2025 11:06-0400 Systolic blood pressure 152 mm[Hg] Dr. Kristina Mcginnis MD Work Phone: [facility] 05-16-2025 11:39-0400 Body height 172.7 cm Romulo Hernandez MD Work Phone: [facility] 05-16-2025 11:39-0400 Body mass index (BMI) [Ratio] 27.79 kg/m2 Romulo Hernandez MD Work Phone: [facility] 05-16-2025 11:39-0400 Body weight 82.92 kg Romulo Hernandez MD Work Phone: [facility] 05-16-2025 11:39-0400 Diastolic blood pressure 78 mm[Hg] Romulo Hernandez MD Work Phone: [facility] 05-16-2025 11:39-0400 Heart rate 75 /min Romulo Hernandez MD Work Phone: [facility] 05-16-2025 11:39-0400 SaO2% (BldA) [Mass fraction] 95 % Romulo Hernandez MD Work Phone: [facility] 05-16-2025 11:39-0400 Systolic blood pressure 138 mm[Hg] Romulo Hernandez MD Work Phone: [facility] 05-08-2025 09:46-0400 Body height 172.[address] Kristina Mcginnis MD Work Phone: [facility] 05-08-2025 09:46-0400 Body mass index (BMI) [Ratio] 28.1 kg/m2 Dr. Kristina Mcginnis MD Work Phone: [facility] 05-08-2025 09:46-0400 Body temperature 97.5 [degF] Dr. Kristina Mcginnis MD Work Phone: [facility] 05-08-2025 09:46-0400 Body weight 83.[address] Kristina Mcginnis MD Work Phone: [facility] 05-08-2025 09:46-0400 Diastolic blood pressure 82 mm[Hg] Dr. Kristina Mcginnis MD Work Phone: [facility] 05-08-2025 09:46-0400 Heart rate 63 /min Dr. Kristina Mcginnis MD Work Phone: [facility] 05-08-2025 09:46-0400 Respiratory rate 16 /min Dr. Kristina Mcginnis MD Work Phone: [facility] 05-08-2025 09:46-0400 SaO2% (BldA) [Mass fraction] 95 % Dr. Kristina Mcginnis MD Work Phone: [facility] 05-08-2025 09:46-0400 Systolic blood pressure 172 mm[Hg] Dr. Kristina Mcginnis MD Work Phone: [facility] 04-29-2025 08:27-0400 Diastolic blood pressure 60 mm[Hg] Kristina Mcginnis MD Work Phone: [facility] 04-29-2025 08:27-0400 Systolic blood pressure 120 mm[Hg] Kristina Mcginnis MD Work Phone: [facility] 04-29-2025 08:04-0400 Body mass index (BMI) [Ratio] 28.13 kg/m2 Kristina Mcginnis MD Work Phone: [facility] 04-29-2025 08:04-0400 Body weight 83.92 kg Kristina Mcginnis MD Work Phone: [facility] 04-29-2025 08:04-0400 Heart rate 75 /min Kristina Mcginnis MD Work Phone: [facility] 04-29-2025 08:04-0400 SaO2% (BldA) [Mass fraction] 95 % Kristina Mcginnis MD Work Phone: [facility] 04-17-2025 12:26-0400 Body temperature 97.8 [degF] Dr. Kristina Mcginnis MD Work Phone: [facility] 04-17-2025 12:26-0400 Diastolic blood pressure 75 mm[Hg] Dr. Kristina Mcginnis MD Work Phone: [facility] 04-17-2025 12:26-0400 Heart rate 59 /min Dr. Kristina Mcginnis MD Work Phone: [facility] 04-17-2025 12:26-0400 Respiratory rate 16 /min Dr. Kristina Mcginnis MD Work Phone: [facility] 04-17-2025 12:26-0400 SaO2% (BldA) [Mass fraction] 98 % Dr. Kristina Mcginnis MD Work Phone: [facility] 04-17-2025 12:26-0400 Systolic blood pressure 157 mm[Hg] Dr. Kristina Mcginnis MD Work Phone: [facility] 04-17-2025 10:54-0400 Body height 172.[address] Kristina Mcginnis MD Work Phone: [facility] 04-17-2025 10:54-0400 Body mass index (BMI) [Ratio] 28.1 kg/m2 Dr. Kristina Mcginnis MD Work Phone: [facility] 04-17-2025 10:54-0400 Body temperature 97.2 [degF] Dr. Kristina Mcginnis MD Work Phone: [facility] 04-17-2025 10:54-0400 Body weight 83.[address] Kristina Mcginnis MD Work Phone: [facility] 04-17-2025 10:54-0400 Diastolic blood pressure 88 mm[Hg] Dr. Kristina Mcginnis MD Work Phone: [facility] 04-17-2025 10:54-0400 Heart rate 63 /min Dr. Kristina Mcginnis MD Work Phone: [facility] 04-17-2025 10:54-0400 Respiratory rate 16 /min Dr. Kristina Mcginnis MD Work Phone: [facility] 04-17-2025 10:54-0400 SaO2% (BldA) [Mass fraction] 96 % Dr. Kristina Mcginnis MD Work Phone: [facility] 04-17-2025 10:54-0400 Systolic blood pressure 156 mm[Hg] Dr. Kristina Mcginnis MD Work Phone: 1(989)352-815745 [place] [address] 03-27-2025 12:33-0400 Body temperature 96.3 [degF] Dr. Kristina Mcginnis MD Work Phone: [facility] 03-27-2025 12:33-0400 Diastolic blood pressure 71 mm[Hg] Dr. Kristina Mcginnis MD Work Phone: [facility] 03-27-2025 12:33-0400 Heart rate 66 /min Dr. Kristina Mcginnis MD Work Phone: [facility] 03-27-2025 12:33-0400 Respiratory rate 16 /min Dr. Kristina Mcginnis MD Work Phone: [facility] 03-27-2025 12:33-0400 SaO2% (BldA) [Mass fraction] 99 % Dr. Kristina Mcginnis MD Work Phone: [facility] 03-27-2025 12:33-0400 Systolic blood pressure 134 mm[Hg] Dr. Kristina Mcginnis MD Work Phone: 9(606)502-968745 [place] [address] 03-27-2025 10:39-0400 Body height 172.[address] Kristina Mcginnis MD Work Phone: [facility] 03-27-2025 10:39-0400 Body mass index (BMI) [Ratio] 28.1 kg/m2 Dr. Kristina Mcginnis MD Work Phone: [facility] 03-27-2025 10:39-0400 Body temperature 97.5 [degF] Dr. Kristina Mcginnis MD Work Phone: 3(692)052-312645 [place] [address] 03-27-2025 10:39-0400 Body weight 83.[address] Kristina Mcginnis MD Work Phone: 2(274)362-177645 [place] [address] 03-27-2025 10:39-0400 Diastolic blood pressure 84 mm[Hg] Dr. Kristina Mcginnis MD Work Phone: 4(452)241-550145 [place] [address] 03-27-2025 10:39-0400 Heart rate 63 /min Dr. Kristina Mcginnis MD Work Phone: 9(522)234-945945 [place] [address] 03-27-2025 10:39-0400 Respiratory rate 18 /min Dr. Kristina Mcginnis MD Work Phone: 3(843)754-652345 [place] [address] 03-27-2025 10:39-0400 SaO2% (BldA) [Mass fraction] 98 % Dr. Kristina Mcginnis MD Work Phone: [facility] 03-27-2025 10:39-0400 Systolic blood pressure 149 mm[Hg] Dr. Kristina Mcginnis MD Work Phone: [facility] 03-06-2025 13:22-0400 Body temperature 97.2 [degF] Dr. Kristina Mcginnis MD Work Phone: [facility] 03-06-2025 13:22-0400 Diastolic blood pressure 68 mm[Hg] Dr. Kristina Mcginnis MD Work Phone: [facility] 03-06-2025 13:22-0400 Heart rate 65 /min Dr. Kristina Mcginnis MD Work Phone: [facility] 03-06-2025 13:22-0400 Respiratory rate 16 /min Dr. Kristina Mcginnis MD Work Phone: [facility] 03-06-2025 13:22-0400 SaO2% (BldA) [Mass fraction] 97 % Dr. Kristina Mcginnis MD Work Phone: [facility] 03-06-2025 13:22-0400 Systolic blood pressure 143 mm[Hg] Dr. Kristina Mcginnis MD Work Phone: [facility] 03-06-2025 10:33-0400 Body mass index (BMI) [Ratio] 27.8 kg/m2 Dr. Kristina Mcginnis MD Work Phone: 2(266)642-834345 [place] [address] 03-06-2025 10:33-0400 Body temperature 96.9 [degF] Dr. Kristina Mcginnis MD Work Phone: 1(140)304-073145 [place] [address] 03-06-2025 10:33-0400 Body weight 83.[address] Kristina Mcginnis MD Work Phone: [facility] 03-06-2025 10:33-0400 Diastolic blood pressure 99 mm[Hg] Dr. Kristina Mcginnis MD Work Phone: [facility] 03-06-2025 10:33-0400 Heart rate 59 /min Dr. Kristina Mcginnis MD Work Phone: [facility] 03-06-2025 10:33-0400 Respiratory rate 18 /min Dr. Kristina Mcginnis MD Work Phone: [facility] 03-06-2025 10:33-0400 SaO2% (BldA) [Mass fraction] 98 % Dr. Kristina Mcginnis MD Work Phone: [facility] 03-06-2025 10:33-0400 Systolic blood pressure 179 mm[Hg] Dr. Kristina Mcginnis MD Work Phone: [facility] 02-13-2025 11:15-0400 Body mass index (BMI) [Ratio] 27.8 kg/m2 Dr. Kristina Mcginnis MD Work Phone: [facility] 02-13-2025 11:15-0400 Body temperature 97.4 [degF] Dr. Kristina Mcginnis MD Work Phone: [facility] 02-13-2025 11:15-0400 Body weight [address] Kristina Mcginnis MD Work Phone: [facility] 02-13-2025 11:15-0400 Diastolic blood pressure 84 mm[Hg] Dr. Kristina Mcginnis MD Work Phone: 6(777)308-793545 [place] [address] 02-13-2025 11:15-0400 Heart rate 64 /min Dr. Kristina Mcginnis MD Work Phone: 7(793)844-099245 [place] [address] 02-13-2025 11:15-0400 Respiratory rate 18 /min Dr. Kristina Mcginnis MD Work Phone: 0(059)800-536245 [place] [address] 02-13-2025 11:15-0400 SaO2% (BldA) [Mass fraction] 98 % Dr. Kristina Mcginnis MD Work Phone: 8(922)177-576645 [place] [address] 02-13-2025 11:15-0400 Systolic blood pressure 175 mm[Hg] Dr. Kristina Mcginnis MD Work Phone: 0(606)433-053445 [place] [address] 02-07-2025 10:34-0400 Body mass index (BMI) [Ratio] 27.8 kg/m2 Dr. Kristina Mcginnis MD Work Phone: [facility] 02-07-2025 10:34-0400 Body temperature 98.1 [degF] Dr. Kristina Mcginnis MD Work Phone: [facility] 02-07-2025 10:34-0400 Body weight [address] Kristina Mcginnis MD Work Phone: 6(586)475-811645 [place] [address] 02-07-2025 10:34-0400 Diastolic blood pressure 92 mm[Hg] Dr. Kristina Mcginnis MD Work Phone: [facility] 02-07-2025 10:34-0400 Heart rate 62 /min Dr. Kristina Mcginnis MD Work Phone: [facility] 02-07-2025 10:34-0400 Respiratory rate 16 /min Dr. Kristina Mcginnis MD Work Phone: [facility] 02-07-2025 10:34-0400 SaO2% (BldA) [Mass fraction] 99 % Dr. Kristina Mcginnis MD Work Phone: [facility] 02-07-2025 10:34-0400 Systolic blood pressure 159 mm[Hg] Dr. Kristina Mcginnis MD Work Phone: 8(519)957-691445 [place] [address] 01-27-2025 11:07-0400 Body mass index (BMI) [Ratio] 27.8 kg/m2 Dr. Kristina Mcginnis MD Work Phone: 3(724)240-550645 [place] [address] 01-27-2025 11:07-0400 Body temperature 97.3 [degF] Dr. Kristina Mcginnis MD Work Phone: 0(605)157-291145 [place] [address] 01-27-2025 11:07-0400 Body weight 83.[address] Kristina Mcginnis MD Work Phone: 7(038)173-967445 [place] [address] 01-27-2025 11:07-0400 Diastolic blood pressure 86 mm[Hg] Dr. Kristina Mcginnis MD Work Phone: 5(917)881-394745 [place] [address] 01-27-2025 11:07-0400 Heart rate 58 /min Dr. Kristina Mcginnis MD Work Phone: [facility] 01-27-2025 11:07-0400 Respiratory rate 16 /min Dr. Kristina Mcginnis MD Work Phone: [facility] 01-27-2025 11:07-0400 SaO2% (BldA) [Mass fraction] 98 % Dr. Kristina Mcginnis MD Work Phone: [facility] 01-27-2025 11:07-0400 Systolic blood pressure 156 mm[Hg] Dr. Kristina Mcginnis MD Work Phone: [facility] 01-23-2025 11:36-0400 Body mass index (BMI) [Ratio] 27.7 kg/m2 Dr. Kristina Mcginnis MD Work Phone: 6(359)345-055545 [place] [address] 01-23-2025 11:36-0400 Body temperature 96.9 [degF] Dr. Kristina Mcginnis MD Work Phone: [facility] 01-23-2025 11:36-0400 Body weight 82.[address] Kristina Mcginnis MD Work Phone: [facility] 01-23-2025 11:36-0400 Diastolic blood pressure 92 mm[Hg] Dr. Kristina Mcginnis MD Work Phone: 5(508)750-941845 [place] [address] 01-23-2025 11:36-0400 Heart rate 61 /min Dr. Kristina Mcginnis MD Work Phone: 8(439)827-888445 [place] [address] 01-23-2025 11:36-0400 Respiratory rate 16 /min Dr. Kristina Mcginnis MD Work Phone: 7(223)966-121745 [place] [address] 01-23-2025 11:36-0400 SaO2% (BldA) [Mass fraction] 97 % Dr. Kristina Mcginnis MD Work Phone: 9(536)476-374645 [place] [address] 01-23-2025 11:36-0400 Systolic blood pressure 168 mm[Hg] Dr. Kristina Mcginnis MD Work Phone: 0(381)285-025245 [place] [address] 01-22-2025 11:08-0400 Body mass index (BMI) [Ratio] 27.6 kg/m2 Dr. Kristina Mcginnis MD Work Phone: [facility] 01-22-2025 11:08-0400 Body temperature 97.1 [degF] Dr. Kristina Mcginnis MD Work Phone: [facility] 01-22-2025 11:08-0400 Body weight 82.[address] Kristina Mcginnis MD Work Phone: 2(773)468-605345 [place] [address] 01-22-2025 11:08-0400 Diastolic blood pressure 104 mm[Hg] Dr. Kristina Mcginnis MD Work Phone: [facility] 01-22-2025 11:08-0400 Heart rate 61 /min Dr. Kristina Mcginnis MD Work Phone: 8(550)989-229745 [place] [address] 01-22-2025 11:08-0400 Respiratory rate 18 /min Dr. Kristina Mcginnis MD Work Phone: [facility] 01-22-2025 11:08-0400 SaO2% (BldA) [Mass fraction] 97 % Dr. Kristina Mcginnis MD Work Phone: [facility] 01-22-2025 11:08-0400 Systolic blood pressure 146 mm[Hg] Dr. Kritsina Mcginnis MD Work Phone: [facility] 01-15-2025 12:09-0400 Body mass index (BMI) [Ratio] 27.7 kg/m2 Dr. Kristina Mcginnis MD Work Phone: 7(886)877-618945 [place] [address] 01-15-2025 12:09-0400 Body temperature 96.8 [degF] Dr. Kristina Mcginnis MD Work Phone: [facility] 01-15-2025 12:09-0400 Body weight 82.[address] Kristina Mcginnis MD Work Phone: [facility] 01-15-2025 12:09-0400 Diastolic blood pressure 99 mm[Hg] Dr. Kristina Mcginnis MD Work Phone: [facility] 01-15-2025 12:09-0400 Heart rate 66 /min Dr. Kristina Mcginnis MD Work Phone: [facility] 01-15-2025 12:09-0400 Respiratory rate 18 /min Dr. Kristina Mcginnis MD Work Phone: [facility] 01-15-2025 12:09-0400 SaO2% (BldA) [Mass fraction] 98 % Dr. Kristina Mcginnis MD Work Phone: [facility] 01-15-2025 12:09-0400 Systolic blood pressure 166 mm[Hg] Dr. Kristina Mcginnis MD Work Phone: [facility] 01-08-2025 08:58-0400 Body height 172.[address] Kristina Mcginnis MD Work Phone: [facility] 01-08-2025 08:58-0400 Body mass index (BMI) [Ratio] 27.9 kg/m2 Dr. Kristina Mcginnis MD Work Phone: [facility] 01-08-2025 08:58-0400 Body temperature 96.9 [degF] Dr. Kristina Mcginnis MD Work Phone: [facility] 01-08-2025 08:58-0400 Body weight 83.[address] Kristina Mcginnis MD Work Phone: [facility] 01-08-2025 08:58-0400 Diastolic blood pressure 69 mm[Hg] Dr. Kristina Mcginnis MD Work Phone: [facility] 01-08-2025 08:58-0400 Heart rate 59 /min Dr. Kristina Mcginnis MD Work Phone: [facility] 01-08-2025 08:58-0400 Respiratory rate 18 /min Dr. Kristina Mcginnis MD Work Phone: [facility] 01-08-2025 08:58-0400 SaO2% (BldA) [Mass fraction] 99 % Dr. Kristina Mcginnis MD Work Phone: [facility] 01-08-2025 08:58-0400 Systolic blood pressure 170 mm[Hg] Dr. Kristina Mcginnis MD Work Phone: [facility] 01-02-2025 12:32-0500 Body temperature 97.3 [degF] Dr. Kristina Mcginnis MD Work Phone: [facility] 01-02-2025 12:32-0500 Diastolic blood pressure 61 mm[Hg] Dr. Kristina Mcginnis MD Work Phone: [facility] 01-02-2025 12:32-0500 Heart rate 71 /min Dr. Kristina Mcginnis MD Work Phone: [facility] 01-02-2025 12:32-0500 Respiratory rate 16 /min Dr. Kristina Mcginnis MD Work Phone: [facility] 01-02-2025 12:32-0500 SaO2% (BldA) [Mass fraction] 98 % Dr. Kristina Mcginnis MD Work Phone: [facility] 01-02-2025 12:32-0500 Systolic blood pressure 106 mm[Hg] Dr. Kristina Mcginnis MD Work Phone: [facility] 01-02-2025 10:22-0500 Body mass index (BMI) [Ratio] 28.1 kg/m2 Dr. Kristina Mcginnis MD Work Phone: [facility] 01-02-2025 10:22-0500 Body temperature 97.4 [degF] Dr. Kristina Mcginnis MD Work Phone: 5(568)587-803145 [place] [address] 01-02-2025 10:22-0500 Body weight 83.[address] Kristina Mcginnis MD Work Phone: 5(258)875-191745 [place] [address] 01-02-2025 10:22-0500 Diastolic blood pressure 80 mm[Hg] Dr. Kristina Mcginnis MD Work Phone: 7(857)857-894245 [place] [address] 01-02-2025 10:22-0500 Heart rate 72 /min Dr. Kristina Mcginnis MD Work Phone: 0(540)826-263045 [place] [address] 01-02-2025 10:22-0500 Respiratory rate 16 /min Dr. Kristina Mcginnis MD Work Phone: [facility] 01-02-2025 10:22-0500 SaO2% (BldA) [Mass fraction] 97 % Dr. Kristina Mcginnis MD Work Phone: [facility] 01-02-2025 10:22-0500 Systolic blood pressure 154 mm[Hg] Dr. Kristina Mcginnis MD Work Phone: [facility] 12-26-2024 11:38-0500 Body mass index (BMI) [Ratio] 28 kg/m2 Dr. Kristina Mcginnis MD Work Phone: [facility] 12-26-2024 11:38-0500 Body temperature 96.9 [degF] Dr. Kristina Mcginnis MD Work Phone: [facility] 12-26-2024 11:38-0500 Body weight 83.[address] Kristina Mcginnis MD Work Phone: [facility] 12-26-2024 11:38-0500 Diastolic blood pressure 82 mm[Hg] Dr. Kristina Mcginnis MD Work Phone: [facility] 12-26-2024 11:38-0500 Heart rate 77 /min Dr. Kristina Mcginnis MD Work Phone: [facility] 12-26-2024 11:38-0500 Respiratory rate 16 /min Dr. Kristina Mcginnis MD Work Phone: 9(397)334-768245 [place] [address] 12-26-2024 11:38-0500 SaO2% (BldA) [Mass fraction] 99 % Dr. Kristina Mcginnis MD Work Phone: 8(281)779-533245 [place] [address] 12-26-2024 11:38-0500 Systolic blood pressure 169 mm[Hg] Dr. Kristina Mcginnis MD Work Phone: 3(111)003-419745 [place] [address] 12-12-2024 10:11-0500 Body mass index (BMI) [Ratio] 28.1 kg/m2 Dr. Kristina Mcginnis MD Work Phone: 2(510)703-450045 [place] [address] 12-12-2024 10:11-0500 Body temperature 97.3 [degF] Dr. Kristina Mcginnis MD Work Phone: [facility] 12-12-2024 10:11-0500 Body weight 83.[address] Kristina Mcginnis MD Work Phone: [facility] 12-12-2024 10:11-0500 Diastolic blood pressure 82 mm[Hg] Dr. Kristina Mcginnis MD Work Phone: [facility] 12-12-2024 10:11-0500 Heart rate 63 /min Dr. Kristina Mcginnis MD Work Phone: [facility] 12-12-2024 10:11-0500 Respiratory rate 14 /min Dr. Kristina Mcginnis MD Work Phone: [facility] 12-12-2024 10:11-0500 SaO2% (BldA) [Mass fraction] 98 % Dr. Kristina Mcginnis MD Work Phone: [facility] 12-12-2024 10:11-0500 Systolic blood pressure 152 mm[Hg] Dr. Kristina Mcginnis MD Work Phone: [facility] 12-05-2024 11:08-0500 Body mass index (BMI) [Ratio] 28.2 kg/m2 Dr. Kristina Mcginnis MD Work Phone: 6(420)661-031545 [place] [address] 12-05-2024 11:08-0500 Body temperature 97.2 [degF] Dr. Kristina Mcginnis MD Work Phone: 7(553)203-222945 [place] [address] 12-05-2024 11:08-0500 Body weight 84.[address] Kristina Mcginnis MD Work Phone: 5(997)287-842745 [place] [address] 12-05-2024 11:08-0500 Diastolic blood pressure 84 mm[Hg] Dr. Kristina Mcginnis MD Work Phone: 2(207)989-335245 [place] [address] 12-05-2024 11:08-0500 Heart rate 67 /min Dr. Kristina Mcginnis MD Work Phone: 3(426)760-861645 [place] [address] 12-05-2024 11:08-0500 Respiratory rate 16 /min Dr. Kristina Mcginnis MD Work Phone: 1(650)704-872845 [place] [address] 12-05-2024 11:08-0500 SaO2% (BldA) [Mass fraction] 98 % Dr. Kristina Mcginnis MD Work Phone: [facility] 12-05-2024 11:08-0500 Systolic blood pressure 143 mm[Hg] Dr. Kristina Mcginnis MD Work Phone: [facility] 11-28-2024 10:45-0500 Body mass index (BMI) [Ratio] 28.4 kg/m2 Dr. Kristina Mcginnis MD Work Phone: [facility] 11-28-2024 10:45-0500 Body temperature 97.1 [degF] Dr. Kristina Mcginnis MD Work Phone: 4(455)222-547045 [place] [address] 11-28-2024 10:45-0500 Body weight 84.[address] Kristina Mcginnis MD Work Phone: [facility] 11-28-2024 10:45-0500 Diastolic blood pressure 83 mm[Hg] Dr. Kristina Mcginnis MD Work Phone: [facility] 11-28-2024 10:45-0500 Heart rate 64 /min Dr. Kristina Mcginnis MD Work Phone: 7(752)981-115245 [place] [address] 11-28-2024 10:45-0500 Respiratory rate 16 /min Dr. Kristina Mcginnis MD Work Phone: 0(769)619-833145 [place] [address] 11-28-2024 10:45-0500 SaO2% (BldA) [Mass fraction] 97 % Dr. Kristina Mcginnis MD Work Phone: 9(574)985-534445 [place] [address] 11-28-2024 10:45-0500 Systolic blood pressure 131 mm[Hg] Dr. Kristina Mcginnis MD Work Phone: 2(280)320-635145 [place] [address] 11-15-2024 11:29-0500 Body mass index (BMI) [Ratio] 28.4 kg/m2 Dr. Kristina Mcginnis MD Work Phone: 2(840)007-957345 [place] [address] 11-15-2024 11:29-0500 Body temperature 97.6 [degF] Dr. Kristina Mcginnis MD Work Phone: 4(786)076-697045 [place] [address] 11-15-2024 11:29-0500 Body weight 84.[address] Kristina Mcginnis MD Work Phone: 9(951)339-907345 [place] [address] 11-15-2024 11:29-0500 Diastolic blood pressure 82 mm[Hg] Dr. Kristina Mcginnis MD Work Phone: 6(853)371-783245 [place] [address] 11-15-2024 11:29-0500 Heart rate 86 /min Dr. Kristina Mcginnis MD Work Phone: 3(460)246-543045 [place] [address] 11-15-2024 11:29-0500 Respiratory rate 18 /min Dr. Kristina Mcginnis MD Work Phone: 1(002)796-173745 [place] [address] 11-15-2024 11:29-0500 SaO2% (BldA) [Mass fraction] 100 % Dr. Kristina Mcginnis MD Work Phone: [facility] 11-15-2024 11:29-0500 Systolic blood pressure 128 mm[Hg] Dr. Kristina Mcginnis MD Work Phone: 0(124)877-778745 [place] [address] 11-14-2024 11:00-0500 Body mass index (BMI) [Ratio] 28.3 kg/m2 Dr. Kristina Mcginnis MD Work Phone: 1(327)641-761045 [place] [address] 11-14-2024 11:00-0500 Body temperature 97.3 [degF] Dr. Kristina Mcginnis MD Work Phone: 0(140)184-216245 [place] [address] 11-14-2024 11:00-0500 Body weight 84.[address] Kristina Mcginnis MD Work Phone: 5(140)013-557845 [place] [address] 11-14-2024 11:00-0500 Diastolic blood pressure 78 mm[Hg] Dr. Kristina Mcginnis MD Work Phone: 7(512)928-606545 [place] [address] 11-14-2024 11:00-0500 Heart rate 72 /min Dr. Kristina Mcginnis MD Work Phone: 1(061)242-994345 [place] [address] 11-14-2024 11:00-0500 Respiratory rate 16 /min Dr. Kristina Mcginnis MD Work Phone: 7(550)987-908745 [place] [address] 11-14-2024 11:00-0500 SaO2% (BldA) [Mass fraction] 97 % Dr. Kristina Mcginnis MD Work Phone: 9(650)229-847245 [place] [address] 11-14-2024 11:00-0500 Systolic blood pressure 152 mm[Hg] Dr. Kristina Mcginnis MD Work Phone: [facility] 2024 08:51-0500 Body mass index (BMI) [Ratio] 28.5 kg/m2 Dr. Kristina Mcginnis MD Work Phone: 5(617)650-553145 [place] [address] 10-31-2024 09:49-0500 Body mass index (BMI) [Ratio] 28.4 kg/m2 Dr. Kristina Mcginnis MD Work Phone: 2(601)356-554545 [place] [address] 10-31-2024 09:49-0500 Body temperature 97.3 [degF] Dr. Kristina Mcginnis MD Work Phone: [facility] 10-31-2024 09:49-0500 Body weight 84.[address] Kristina Mcginnis MD Work Phone: [facility] 10-31-2024 09:49-0500 Diastolic blood pressure 78 mm[Hg] Dr. Kristina Mcginnis MD Work Phone: [facility] 10-31-2024 09:49-0500 Heart rate 74 /min Dr. Kristina Mcginnis MD Work Phone: 2(093)834-414445 [place] [address] 10-31-2024 09:49-0500 Respiratory rate 16 /min Dr. Kristina Mcginnis MD Work Phone: 6(740)978-097145 [place] [address] 10-31-2024 09:49-0500 SaO2% (BldA) [Mass fraction] 97 % Dr. Kristina Mcginnis MD Work Phone: 4(453)026-319945 [place] [address] 10-31-2024 09:49-0500 Systolic blood pressure 133 mm[Hg] Dr. Kristina Mcginnis MD Work Phone: 8(750)447-243245 [place] [address] 10-17-2024 09:27-0500 Body mass index (BMI) [Ratio] 27.8 kg/m2 Dr. Kristina Mcginnis MD Work Phone: [facility] 10-17-2024 09:27-0500 Body temperature 96.9 [degF] Dr. Kristina Mcginnis MD Work Phone: [facility] 10-17-2024 09:27-0500 Body weight [address] Kristina Mcginnis MD Work Phone: [facility] 10-17-2024 09:27-0500 Diastolic blood pressure 84 mm[Hg] Dr. Kristina Mcginnis MD Work Phone: [facility] 10-17-2024 09:27-0500 Heart rate 67 /min Dr. Kristina Mcginnis MD Work Phone: [facility] 10-17-2024 09:27-0500 Respiratory rate 16 /min Dr. Kristina Mcginnis MD Work Phone: [facility] 10-17-2024 09:27-0500 SaO2% (BldA) [Mass fraction] 98 % Dr. Kristina Mcginnis MD Work Phone: [facility] 10-17-2024 09:27-0500 Systolic blood pressure 131 mm[Hg] Dr. Kristina Mcginnis MD Work Phone: 8(454)574-609045 [place] [address] 10-10-2024 09:39-0500 Body mass index (BMI) [Ratio] 28 kg/m2 Dr. Kristina Mcginnis MD Work Phone: 2(704)509-396545 [place] [address] 10-10-2024 09:39-0500 Body temperature 97.4 [degF] Dr. Kristina Mcginnis MD Work Phone: 7(419)114-754745 [place] [address] 10-10-2024 09:39-0500 Body weight 83.[address] Kristina Mcginnis MD Work Phone: 9(757)337-395445 [place] [address] 10-10-2024 09:39-0500 Diastolic blood pressure 60 mm[Hg] Dr. Kristina Mcginnis MD Work Phone: 1(212)134-844345 [place] [address] 10-10-2024 09:39-0500 Heart rate 70 /min Dr. Kristina Mcginnis MD Work Phone: 1(225)108-622545 [place] [address] 10-10-2024 09:39-0500 Respiratory rate 16 /min Dr. Kristina Mcginnis MD Work Phone: 4(930)039-478445 [place] [address] 10-10-2024 09:39-0500 SaO2% (BldA) [Mass fraction] 97 % Dr. Kristina Mcginnis MD Work Phone: [facility] 10-10-2024 09:39-0500 Systolic blood pressure 104 mm[Hg] Dr. Kristina Mcginnis MD Work Phone: 0(107)784-736845 [place] [address] 10-07-2024 09:35-0500 Body mass index (BMI) [Ratio] 28.2 kg/m2 Dr. Kristina Mcginnis MD Work Phone: 5(858)904-661645 [place] [address] 10-07-2024 09:35-0500 Body temperature 97.5 [degF] Dr. Kristina Mcginnis MD Work Phone: [facility] 10-07-2024 09:35-0500 Body weight 84.[address] Kristina Mcginnis MD Work Phone: [facility] 10-07-2024 09:35-0500 Diastolic blood pressure 82 mm[Hg] Dr. Kristina Mcginnis MD Work Phone: 0(876)714-313245 [place] [address] 10-07-2024 09:35-0500 Heart rate 78 /min Dr. Kristina Mcginnis MD Work Phone: 2(736)704-763245 [place] [address] 10-07-2024 09:35-0500 Respiratory rate 16 /min Dr. Kristina Mcginnis MD Work Phone: 2(839)839-676845 [place] [address] 10-07-2024 09:35-0500 SaO2% (BldA) [Mass fraction] 97 % Dr. Kristina Mcginnis MD Work Phone: 6(685)307-711845 [place] [address] 10-07-2024 09:35-0500 Systolic blood pressure 137 mm[Hg] Dr. Kristina Mcginnis MD Work Phone: 4(548)299-909545 [place] [address] 10-03-2024 09:35-0500 Body mass index (BMI) [Ratio] 28.4 kg/m2 Dr. Kristina Mcginnis MD Work Phone: [facility] 10-03-2024 09:35-0500 Body temperature 97.1 [degF] Dr. Kristina Mcginnis MD Work Phone: 0(561)713-004645 [place] [address] 10-03-2024 09:35-0500 Body weight 84.[address] Kristina Mcginnis MD Work Phone: 8(226)443-869145 [place] [address] 10-03-2024 09:35-0500 Diastolic blood pressure 83 mm[Hg] Dr. Kristina Mcginnis MD Work Phone: [facility] 10-03-2024 09:35-0500 Heart rate 63 /min Dr. Kristina Mcginnis MD Work Phone: 0(102)146-870145 [place] [address] 10-03-2024 09:35-0500 Respiratory rate 16 /min Dr. Kristina Mcginnis MD Work Phone: [facility] 10-03-2024 09:35-0500 SaO2% (BldA) [Mass fraction] 98 % Dr. Kristina Mcginnis MD Work Phone: [facility] 10-03-2024 09:35-0500 Systolic blood pressure 146 mm[Hg] Dr. Kristina Mcginnis MD Work Phone: 5(344)022-937945 [place] [address] 09-25-2024 09:29-0500 Body mass index (BMI) [Ratio] 28 kg/m2 Dr. Kristina Mcginnis MD Work Phone: 7(892)607-797545 [place] [address] 09-25-2024 09:29-0500 Body temperature 97 [degF] Dr. Kristina Mcginnis MD Work Phone: 2(572)474-917745 [place] [address] 09-25-2024 09:29-0500 Body weight 83.[address] Kristina Mcginnis MD Work Phone: 4(477)713-751545 [place] [address] 09-25-2024 09:29-0500 Diastolic blood pressure 78 mm[Hg] Dr. Kristina Mcginnis MD Work Phone: 0(347)606-699245 [place] [address] 09-25-2024 09:29-0500 Heart rate 61 /min Dr. Kristina Mcginnis MD Work Phone: 1(529)845-884445 [place] [address] 09-25-2024 09:29-0500 Respiratory rate 16 /min Dr. Kristina Mcginnis MD Work Phone: 0(490)953-548645 [place] [address] 09-25-2024 09:29-0500 SaO2% (BldA) [Mass fraction] 97 % Dr. Kristina Mcginnis MD Work Phone: 8(904)695-075945 [place] [address] 09-25-2024 09:29-0500 Systolic blood pressure 132 mm[Hg] Dr. Kristina Mcginnis MD Work Phone: 0(774)244-206745 [place] [address] 09-19-2024 10:01-0500 Body mass index (BMI) [Ratio] 27.8 kg/m2 Dr. Kristina Mcginnis MD Work Phone: 1(252)432-701045 [place] [address] 09-19-2024 10:01-0500 Body temperature 97.2 [degF] Dr. Kristina Mcginnis MD Work Phone: [facility] 09-19-2024 10:01-0500 Body weight 83.[address] Kristina Mcginnis MD Work Phone: [facility] 09-19-2024 10:01-0500 Diastolic blood pressure 82 mm[Hg] Dr. Kristina Mcginnis MD Work Phone: [facility] 09-19-2024 10:01-0500 Heart rate 65 /min Dr. Kristina Mcginnis MD Work Phone: [facility] 09-19-2024 10:01-0500 Respiratory rate 16 /min Dr. Kristina Mcginnis MD Work Phone: [facility] 09-19-2024 10:01-0500 SaO2% (BldA) [Mass fraction] 98 % Dr. Kristina Mcginnis MD Work Phone: [facility] 09-19-2024 10:01-0500 Systolic blood pressure 135 mm[Hg] Dr. Kristina Mcginnis MD Work Phone: [facility] 09-12-2024 09:21-0500 Body mass index (BMI) [Ratio] 27.8 kg/m2 Dr. Kristina Mcginnis MD Work Phone: [facility] 09-12-2024 09:21-0500 Body temperature 97.8 [degF] Dr. Kristina Mcginnis MD Work Phone: [facility] 09-12-2024 09:21-0500 Body weight 83.[address] Kristina Mcginnis MD Work Phone: [facility] 09-12-2024 09:21-0500 Diastolic blood pressure 82 mm[Hg] Dr. Kristina Mcginnis MD Work Phone: [facility] 09-12-2024 09:21-0500 Heart rate 65 /min Dr. Kristina Mcginnis MD Work Phone: [facility] 09-12-2024 09:21-0500 Respiratory rate 18 /min Dr. Kristina Mcginnis MD Work Phone: [facility] 09-12-2024 09:21-0500 SaO2% (BldA) [Mass fraction] 99 % Dr. Kristina Mcginnis MD Work Phone: [facility] 09-12-2024 09:21-0500 Systolic blood pressure 139 mm[Hg] Dr. Kristina Mcginnis MD Work Phone: [facility] 04-26-2024 07:59-0400 Body height 172.7 cm Kristina Mcginnis MD Work Phone: [facility] 04-26-2024 07:59-0400 Body mass index (BMI) [Ratio] 27.84 kg/m2 Kristina Mcginnis MD Work Phone: [facility] 04-26-2024 07:59-0400 Body weight 83.05 kg Kristina Mcginnis MD Work Phone: [facility] 04-26-2024 07:59-0400 Diastolic blood pressure 64 mm[Hg] Kristina Mcginnis MD Work Phone: [facility] 04-26-2024 07:59-0400 Heart rate 68 /min Kristina Mcginnis MD Work Phone: [facility] 04-26-2024 07:59-0400 SaO2% (BldA) [Mass fraction] 98 % Kristina Mcginnis MD Work Phone: [facility] 04-26-2024 07:59-0400 Systolic blood pressure 118 mm[Hg] Kristina Mcginnis MD Work Phone: [facility] 11-27-2023 09:38-0500 Body height 172.7 cm Kristina Mcginnis MD Work Phone: [facility] 11-27-2023 09:38-0500 Body mass index (BMI) [Ratio] 27.31 kg/m2 Kristina Mcginnis MD Work Phone: [facility] 11-27-2023 09:38-0500 Body weight 81.47 kg Kristina Mcginnis MD Work Phone: [facility] 11-27-2023 09:38-0500 Diastolic blood pressure 70 mm[Hg] Kristina Mcginnis MD Work Phone: [facility] 11-27-2023 09:38-0500 Heart rate 80 /min Kristina Mcginnis MD Work Phone: [facility] 11-27-2023 09:38-0500 SaO2% (BldA) [Mass fraction] 96 % Kristina Mcginnis MD Work Phone: [facility] 11-27-2023 09:38-0500 Systolic blood pressure 120 mm[Hg] Kristina Mcginnis MD Work Phone: [facility] 11-17-2023 09:53-0500 Body height 172.7 cm Heriberto Antonietta [employer] MAINTENANCE ENGINEER-CLINIC MANAGER Work Phone: [facility] 11-17-2023 09:53-0500 Body mass index (BMI) [Ratio] 27.37 kg/m2 Heriberto Antonietta [employer] MAINTENANCE ENGINEER-CLINIC MANAGER Work Phone: [facility] 11-17-2023 09:53-0500 Body temperature 98.91 [degF] Heriberto Antonietta PLANT MAINTENANCE ENGINEER-CLINIC MANAGER Work Phone: [facility] 11-17-2023 09:53-0500 Body weight 81.65 kg Heriberto Antonietta PLANT MAINTENANCE ENGINEER-CLINIC MANAGER Work Phone: [facility] 11-17-2023 09:53-0500 Diastolic blood pressure 84 mm[Hg] Heriberto Antonietta PL[employer] MAINTENANCE ENGINEER-CLINIC MANAGER Work Phone: [facility] 11-17-2023 09:53-0500 Heart rate 82 /min Heriberto Antonietta PL[employer] MAINTENANCE ENGINEER-CLINIC MANAGER Work Phone: [facility] 11-17-2023 09:53-0500 Respiratory rate 16 /min Heriberto Antonietta PLANT MAINTENANCE ENGINEER-CLINIC MANAGER Work Phone: [facility] 11-17-2023 09:53-0500 SaO2% (BldA) [Mass fraction] 97 % Heriberto Barr [employer] MAINTENANCE ENGINEER-CLINIC MANAGER Work Phone: [facility] 11-17-2023 09:53-0500 Systolic blood pressure 139 mm[Hg] Heriberto Barr [employer] MAINTENANCE ENGINEER-CLINIC MANAGER Work Phone: [facility] 06-05-2023 10:23-0400 Body height 172.[address] Kristina Mcginnis Work Phone: [facility] 06-05-2023 10:23-0400 Body mass index (BMI) [Ratio] 27.8 kg/m2 Dr. Kristina Mcginnis Work Phone: [facility] 06-05-2023 10:23-0400 Body temperature 97.8 [degF] Dr. Kristina Mcginnis Work Phone: [facility] 06-05-2023 10:23-0400 Body weight 83.[address] Kristina Mcginnis Work Phone: [facility] 06-05-2023 10:23-0400 Diastolic blood pressure 87 mm[Hg] Dr. Kristina Mcginnis Work Phone: [facility] 06-05-2023 10:23-0400 Heart rate 55 /min Dr. Kristina Mcginnis Work Phone: [facility] 06-05-2023 10:23-0400 Respiratory rate 16 /min Dr. Kristina Mcginnis Work Phone: [facility] 06-05-2023 10:23-0400 SaO2% (BldA) [Mass fraction] 99 % Dr. Kristina Mcginnis Work Phone: [facility] 06-05-2023 10:23-0400 Systolic blood pressure 145 mm[Hg] Dr. Kristian Mcginnis Work Phone: [facility] 05-17-2023 14:07-0400 Body mass index (BMI) [Ratio] 28.1 kg/m2 Dr. Kristina Mcginnis Work Phone: [facility] 05-17-2023 14:07-0400 Body temperature 98.4 [degF] Dr. Kristina Mcginnis Work Phone: [facility] 05-17-2023 14:07-0400 Body weight 83.[address] Kristina Mcginnis Work Phone: [facility] 05-17-2023 14:07-0400 Diastolic blood pressure 81 mm[Hg] Dr. Kristina Mcginnis Work Phone: [facility] 05-17-2023 14:07-0400 Heart rate 66 /min Dr. Kristina Mcginnis Work Phone: [facility] 05-17-2023 14:07-0400 Respiratory rate 16 /min Dr. Kristina Mcginnis Work Phone: [facility] 05-17-2023 14:07-0400 SaO2% (BldA) [Mass fraction] 99 % Dr. Kristina Mcginnis Work Phone: [facility] 05-17-2023 14:07-0400 Systolic blood pressure 134 mm[Hg] Dr. Kristina Mcginnis Work Phone: [facility] 04-28-2023 08:01-0400 Body height 172.7 cm Kristina Mcginnis MD Work Phone: [facility] 04-28-2023 08:01-0400 Body mass index (BMI) [Ratio] 28.13 kg/m2 Kristina Mcginnis MD Work Phone: [facility] 04-28-2023 08:01-0400 Body weight 83.92 kg Kristina Mcginnis MD Work Phone: [facility] 04-28-2023 08:01-0400 Diastolic blood pressure 90 mm[Hg] Kristina Mcginnis MD Work Phone: [facility] 04-28-2023 08:01-0400 Heart rate 71 /min Kristina Mcginnis MD Work Phone: [facility] 04-28-2023 08:01-0400 SaO2% (BldA) [Mass fraction] 95 % Kristina Mcginnis MD Work Phone: [facility] 04-28-2023 08:01-0400 Systolic blood pressure 140 mm[Hg] Kristina Mcginnis MD Work Phone: [facility] 02-28-2023 11:51-0400 Body height 172 cm Kristina Mcginnis Other Phone: [facility] 02-28-2023 11:51-0400 Body temperature 98.24 [degF] Kristina Mcginnis Other Phone: [facility] 02-28-2023 11:51-0400 Diastolic blood pressure 78 mm[Hg] Kristina Mcginnis Other Phone: [facility] 02-28-2023 11:51-0400 Heart rate 101 /min Kristina Mcginnis Other Phone: [facility] 02-28-2023 11:51-0400 Respiratory rate 16 /min Kristina Mcginnis Other Phone: [facility] 02-28-2023 11:51-0400 SaO2% (BldA) [Mass fraction] 94 % Kristina Mcginnis Other Phone: [facility] 02-28-2023 11:51-0400 Systolic blood pressure 118 mm[Hg] Kristina Mcginnis Other Phone: [facility] 02-15-2023 13:19-0400 Body mass index (BMI) [Ratio] 28.3 kg/m2 Dr. Kristina Mcginnis Work Phone: [facility] 02-15-2023 13:19-0400 Body temperature 96.9 [degF] Dr. Kristina Mcginnis Work Phone: [facility] 02-15-2023 13:19-0400 Body weight 84.[address] Kristina Mcginnis Work Phone: [facility] 02-15-2023 13:19-0400 Diastolic blood pressure 79 mm[Hg] Dr. Kristina Mcginnis Work Phone: [facility] 02-15-2023 13:19-0400 Heart rate 66 /min Dr. Kristina Mcginins Work Phone: [facility] 02-15-2023 13:19-0400 Respiratory rate 18 /min Dr. Kristina Mcginnis Work Phone: [facility] 02-15-2023 13:19-0400 SaO2% (BldA) [Mass fraction] 99 % Dr. Kristina Mcginnis Work Phone: [facility] 02-15-2023 13:19-0400 Systolic blood pressure 151 mm[Hg] Dr. Kristina Mcginnis Work Phone: [facility] 10-18-2022 13:50-0500 Diastolic blood pressure 78 mm[Hg] Martha Andres MD Work Phone: [facility] 10-18-2022 13:50-0500 Systolic blood pressure 162 mm[Hg] Martha Andres MD Work Phone: [facility] 10-18-2022 13:19-0500 Body mass index (BMI) [Ratio] 27.29 kg/m2 Martha Andres MD Work Phone: [facility] 10-18-2022 13:19-0500 Body temperature 97.81 [degF] Martha Andres MD Work Phone: [facility] 10-18-2022 13:19-0500 Body weight 81.42 kg Martha Andres MD Work Phone: [facility] 10-18-2022 13:19-0500 Heart rate 61 /min Martha Andres MD Work Phone: [facility] 10-18-2022 13:19-0500 Respiratory rate 14 /min Martha Andres MD Work Phone: [facility] 10-18-2022 13:19-0500 SaO2% (BldA) [Mass fraction] 96 % Martha Andres MD Work Phone: [facility] 09-27-2022 23:36-0500 Heart rate 80 /min Kristina Mcginnis Other Phone: [facility] 09-27-2022 23:36-0500 Respiratory rate 18 /min Kristina Mcginnis Other Phone: [facility] 09-27-2022 23:36-0500 SaO2% (BldA) [Mass fraction] 97 % Kristina Mcginnis Other Phone: [facility] 09-27-2022 22:39-0500 Body height 172.7 cm Kristina Mcginnis Other Phone: [facility] 09-27-2022 22:39-0500 Body temperature 99.32 [degF] Kristina Mcginnis Other Phone: [facility] 09-27-2022 22:39-0500 Body weight 82 kg Kristina Mcginnis Other Phone: [facility] 09-27-2022 22:39-0500 Diastolic blood pressure 94 mm[Hg] Kristina Mcginnis Other Phone: [facility] 09-27-2022 22:39-0500 Systolic blood pressure 150 mm[Hg] Kristina Mcginnis Other Phone: [facility] 06-02-2022 09:17-0400 Body temperature 97.8 [degF] Dr. Kristina Mcginnis Work Phone: [facility] Work Phone: 06-02-2022 09:17-0400 Diastolic blood pressure 77 mm[Hg] Dr. Kristina Mcginnis Work Phone: [facility] Work Phone: 06-02-2022 09:17-0400 Heart rate 74 /min Dr. Kristina Mcginnis Work Phone: [facility] Work Phone: 06-02-2022 09:17-0400 Respiratory rate 16 /min Dr. Kristina Mcginnis Work Phone: [facility] Work Phone: 06-02-2022 09:17-0400 SaO2% (BldA) [Mass fraction] 97 % Dr. Kristina Mcginnis Work Phone: [facility] Work Phone: 06-02-2022 09:17-0400 Systolic blood pressure 138 mm[Hg] Dr. Kristina Mcginnis Work Phone: [facility] Work Phone: 05-11-2022 14:21-0400 Body height 172.[address] Kristina Mcginnis Work Phone: [facility] Work Phone: 05-11-2022 14:20-0400 Body mass index (BMI) [Ratio] 28.1 kg/m2 Dr. Kristina Mcginnis Work Phone: [facility] Work Phone: 05-11-2022 14:20-0400 Body temperature 98.6 [degF] Dr. Kristina Mcginnis Work Phone: [facility] Work Phone: 05-11-2022 14:20-0400 Body weight 83.[address] Kristina Mcginnis Work Phone: [facility] Work Phone: 05-11-2022 14:20-0400 Diastolic blood pressure 92 mm[Hg] Dr. Kristina Mcginnis Work Phone: [facility] Work Phone: 05-11-2022 14:20-0400 Heart rate 60 /min Dr. Kristina Mcginnis Work Phone: [facility] Work Phone: 05-11-2022 14:20-0400 Respiratory rate 16 /min Dr. Kristina Mcginnis Work Phone: [facility] Work Phone: 05-11-2022 14:20-0400 SaO2% (BldA) [Mass fraction] 98 % Dr. Kristina Mcginnis Work Phone: [facility] Work Phone: 05-11-2022 14:20-0400 Systolic blood pressure 162 mm[Hg] Dr. Kristina Mcginnis Work Phone: [facility] Work Phone: 04-27-2022 08:02-0400 Body height 172.72 cm Kristina Mcginnis Work Phone: [employer] Work Phone: 04-27-2022 08:02-0400 Body mass index (BMI) [Ratio] 27.75 kg/m2 Kristina Mcginnis Work Phone: [facility] Work Phone: 04-27-2022 08:02-0400 Body surface area Derived from formula 1.97 m2 Kristina Mcginnis Work Phone: [facility] Work Phone: 04-27-2022 08:02-0400 Body weight 82.78 kg Kristina Mcginnis Work Phone: [facility] Work Phone: 04-27-2022 08:02-0400 Diastolic blood pressure 84 mm[Hg] Kristina Mcginnis Work Phone: [employer] Work Phone: 04-27-2022 08:02-0400 Heart rate 75 /min Kristina Mcginnis Work Phone: [facility] Work Phone: 04-27-2022 08:02-0400 SaO2% (BldA) [Mass fraction] 96 % Kristina Mcginnis Work Phone: [facility] Work Phone: 04-27-2022 08:02-0400 Systolic blood pressure 140 mm[Hg] Kristina Mcginnis Work Phone: [facility] Work Phone: 02-17-2022 14:11-0400 Body height 172.7 cm Ofelia Charles MD Work Phone: [facility] 02-17-2022 14:11-0400 Body mass index (BMI) [Ratio] 27.79 kg/m2 Ofelia Charles MD Work Phone: [facility] 02-17-2022 14:11-0400 Body temperature 98.01 [degF] Ofelia Charles MD Work Phone: [facility] 02-17-2022 14:11-0400 Body weight 82.92 kg Ofelia Charles MD Work Phone: [facility] 02-17-2022 14:11-0400 Diastolic blood pressure 75 mm[Hg] Ofelia Charles MD Work Phone: [facility] 02-17-2022 14:11-0400 Heart rate 60 /min Ofelia Charles MD Work Phone: [facility] 02-17-2022 14:11-0400 Systolic blood pressure 175 mm[Hg] Ofelia Charles MD Work Phone: [facility] 02-14-2022 09:52-0400 Body temperature 98 [degF] Dr. Kristina Mcginnis Work Phone: [facility] Work Phone: 02-14-2022 09:52-0400 Body weight 81.[address] Kristina Mcginnis Work Phone: [facility] Work Phone: 02-14-2022 09:52-0400 Diastolic blood pressure 78 mm[Hg] Dr. Kristina Mcginnis Work Phone: [facility] Work Phone: 02-14-2022 09:52-0400 Heart rate 58 /min Dr. Kristina Mcginnis Work Phone: [facility] Work Phone: 02-14-2022 09:52-0400 Respiratory rate 14 /min Dr. Kristina Mcginnis Work Phone: [facility] Work Phone: 02-14-2022 09:52-0400 SaO2% (BldA) [Mass fraction] 98 % Dr. Kristina Mcginnis Work Phone: [facility] Work Phone: 02-14-2022 09:52-0400 Systolic blood pressure 150 mm[Hg] Dr. Kristina Mcginnis Work Phone: [facility] Work Phone: 02-07-2022 14:13-0400 Body mass index (BMI) [Ratio] 27.5 kg/m2 Dr. Kristina Mcginnis Work Phone: [facility] Work Phone: 02-07-2022 14:13-0400 Body temperature 97.9 [degF] Dr. Kristina Mcginnis Work Phone: [facility] Work Phone: 02-07-2022 14:13-0400 Body weight 82.[address] Kristina Mcginnis Work Phone: [facility] Work Phone: 02-07-2022 14:13-0400 Diastolic blood pressure 79 mm[Hg] Dr. Kristina Mcginnis Work Phone: [facility] Work Phone: 02-07-2022 14:13-0400 Heart rate 55 /min Dr. Kristina Mcginnis Work Phone: [facility] Work Phone: 02-07-2022 14:13-0400 Respiratory rate 16 /min Dr. Kristina Mcginnis Work Phone: [facility] Work Phone: 02-07-2022 14:13-0400 SaO2% (BldA) [Mass fraction] 96 % Dr. Kristina Mcginnis Work Phone: [facility] Work Phone: 02-07-2022 14:13-0400 Systolic blood pressure 149 mm[Hg] Dr. Kristina Mcginnis Work Phone: [facility] Work Phone: 04-26-2021 08:11-0400 Body height 172.72 cm Kristina Mcginnis Work Phone: [facility] Work Phone: 04-26-2021 08:11-0400 Body mass index (BMI) [Ratio] 28.36 kg/m2 Kristina Mcginnis Work Phone: [employer] Work Phone: 04-26-2021 08:11-0400 Body surface area Derived from formula 1.98 m2 Kristina Mcginnis Work Phone: [facility] Work Phone: 04-26-2021 08:11-0400 Body temperature 97.5 [degF] Kristina Carroll Ras Work Phone: [facility] Work Phone: 04-26-2021 08:11-0400 Body weight 84.6 kg Kristina Bajwaliss Work Phone: [facility] Work Phone: 04-26-2021 08:11-0400 Diastolic blood pressure 78 mm[Hg] Kristina Carroll Ras Work Phone: [facility] Work Phone: 04-26-2021 08:11-0400 Heart rate 65 /min Kristina Bajwaliss Work Phone: [facility] Work Phone: 04-26-2021 08:11-0400 SaO2% (BldA) [Mass fraction] 97 % Kristina Mcginnis Work Phone: [employer] [facility] Work Phone: 04-26-2021 08:11-0400 Systolic blood pressure 128 mm[Hg] Kristina Mcginnis Work Phone: [facility] Work Phone: 04-23-2020 10:15-0400 BP Diastolic 80 mm[Hg] Kristina Mcginnis [facility] Work Phone: 04-23-2020 10:15-0400 BP Systolic 136 mm[Hg] Kristina Mcginnis [facility] Work Phone: 04-23-2020 10:11-0400 BMI (Body Mass Index) 27.07 kg/m2 Kristina Mcginnis [facility] Work Phone: 04-23-2020 10:11-0400 Body Temperature 97.8 [degF] Kristina Mcginnis [facility] Work Phone: 04-23-2020 10:11-0400 Body weight 80.74 kg Kristina Mcginnis [facility] Work Phone: 04-23-2020 10:11-0400 BSA (Body Surface Area) 1.95 m2 Kristina Mcginnis [facility] Work Phone: 04-23-2020 10:11-0400 Height 172.72 cm Kristina Mcginnis [facility] Work Phone: 04-23-2020 10:11-0400 Pulse (Heart Rate) 66 /min Kristina Mcginnis [facility] Work Phone: 04-23-2020 10:11-0400 Pulse Oximetry 97 % Kristina Mcginnis [facility] Work Phone: Encounters Encounter Date Encounter Type Care Provider Facility Start: 09-11-2025 ambulatory Rebeca Rich [facility]y:[facility] Start: 08-21-2025 End: 08-21-2025 ambulatory [facility] [place]: 08-08-2025 End: 08-08-2025 Subsequent hospital visit by physician Kenny Miller [facility] [place] Comment on above: Pain in right ankle and joints of right foot Start: 08-08-2025 End: 08-08-2025 ambulatory [facility] Start: 08-04-2025 Non-patient / Non-visit Dr. Maicol CHRISTIANSEN -[facility] Start: 08-04-2025 End: 08-04-[address] Kristina Mcginnis MD Work Phone: -Cardiovascular Services Start: 08-04-2025 End: 08-04-[address] Arturo Olivas MD -Card[facility]ovascular Services Work Phone: Start: 08-04-2025 End: 08-04-2025 ambulatory Arturo [facility] Facility:[facility] Start: 07-31-[address] Bret Olivas MD -[facility] Start: 07-31-2025 End: 07-31-[address] Arturo Olivas MD -[facility] Work Phone: Start: 07-31-2025 End: 07-31-[address] Kristina Mcginnis MD Work Phone: -[facility] Start: 07-11-2025 End: 07-11-2025 Subsequent hospital visit by physician Kenny Miller X-[facility] [place] [facility] [place] Comment on above: Pain in right ankle and joints of right foot Start: 07-11-2025 End: 07-11-2025 ambulatory [facility] Start: 07-10-[address] Bret Olivas MD -[facility] Start: 07-10-2025 End: 07-10-[address] Arturo Olivas MD -[facility] Work Phone: Start: 07-10-2025 End: 07-10-[address] Kristina Mcginnis MD Work Phone: -[facility] Start: 07-07-2025 End: 07-07-[address] Kan Ang DO -[facility] Work Phone: Start: 07-07-2025 End: 07-07-[address] Kristina Mcginnis MD Work Phone: [facility] Start: 06-19-2025 End: 06-19-[address] Kristina Mcginnis MD Work Phone: -Cat Scan [facility] Start: 06-19-2025 End: 06-19-[address] Arturo Olivas MD -[facility] Work Phone: Start: 06-19-[address] Bret Olivas MD -[facility] Start: 06-19-2025 End: 06-19-[address] Arturo Olivas MD -[facility] Work Phone: Start: 06-19-2025 End: 06-19-[address] Kristina Mcginnis MD Work Phone: [facility] Start: 06-19-2025 End: 06-19-2025 ambulatory Kristina Mcginnis Facility:[facility] Start: 06-14-2025 End: 06-14-2025 Office outpatient visit 15 minutes Heriberto Barr PLANT MAINTENANCE ENGINEER-CLINIC MANAGER Work Phone: [facility] Comment on above: Viral URI with cough (Primary Dx) Start: 06-14-2025 End: 06-14-[address] [facility] Start: 06-13-2025 End: 06-13-2025 Subsequent hospital visit by physician Kenny [id number] [facility] Comment on above: Pain in right ankle and joints of right foot Start: 06-13-2025 End: 06-13-[address] [facility] Start: 06-13-2025 End: 06-13-[address] Kristina Mcginnis MD Work Phone: -Outpatient Breast Imaging Start: 06-13-2025 End: 06-13-[address] Kan Ang DO -[facility] Work Phone: Start: 06-13-2025 End: 06-13-2025 ambulatory Kristina Mcginnis Facility:[facility] Start: 05-29-[address] Bret Olivas MD -[facility] Start: 05-29-2025 End: 05-29-[address] Darryl Real MD -[facility] Work Phone: Start: 05-29-2025 End: 05-29-[address] Kristina Mcginnis MD Work Phone: -[facility] Start: 05-16-2025 End: 05-16-2025 Subsequent hospital visit by physician Kenny [id number] [facility] Comment on above: Pain in right ankle and joints of right foot Start: 05-16-2025 End: 05-16-2025 ambulatory [facility] Start: 05-16-2025 End: 05-16-2025 Office outpatient visit 15 minutes Romulo Hernandez MD Work Phone: [facility] Comment on above: Swelling of right up per eyelid (Primary Dx) Start: 05-16-2025 End: 05-16-2025 ambulatory ROMULO HERNANDEZ [facility] Start: 05-08-[address] Bret Olivas MD -[facility] Start: 05-08-2025 End: 05-08-[address] Arturo Olivas MD -[facility] Work Phone: Start: 05-08-2025 End: 05-08-[address] Kristina Mcginnis MD Work Phone: -[facility] Start: 04-29-2025 End: 04-29-2025 Assay of hemosiderin, quant Kristina Mcginnis MD Work Phone: [facility] Work Phone: Start: 04-29-2025 End: 04-29-2025 Patient encounter procedure Kristina Mcginnis MD Work Phone: [facility] Comment on above: Routine general medi jimbo examination at health care facility (Primary Dx); Medicare annual wellness visit, subsequent Start: 04-29-2025 End: 04-29-2025 ambulatory [facility] Start: 04-29-2025 End: 04-29-2025 Encounter for general adult medical examination without abnormal findings [facility] Start: 04-17-2025 End: 04-17-[address] Arturo Olivas MD -[facility] Work Phone: Start: 04-17-2025 End: 04-17-[address] Kristina Mcginnis MD Work Phone: [facility] Work Phone: Start: 04-10-2025 Non-patient / Non-visit Dr. Maicol CHRISTIANSEN -[facility] Start: 04-10-2025 End: 04-10-[address] Kristina Mcginnis MD Work Phone: [facility] Work Phone: Start: 04-10-2025 End: 04-10-[address] Arturo Olivas MD -Cardiovascular Services Work Phone: Start: 04-10-2025 End: 04-10-2025 ambulatory Kristina Mcginnis Facility:[facility] Start: 03-27-[address] Kan Jones on [facility] Start: 03-27-2025 End: 03-27-[address] Arturo Olivas MD -[facility] Work Phone: Start: 03-27-2025 End: 03-27-[address] Kristina Mcginnis MD Work Phone: [facility] Work Phone: Start: 03-06-2025 End: 03-06-[address] Kan Ang DO [facility] Work Phone: Start: 03-06-2025 End: 03-06-2025 ambulatory Kristina Stencel Facility:[facility] Start: 02-13-2025 End: 02-13-[address] Arturo Olivas MD [facility] Work Phone: Start: 02-13-2025 End: 02-13-2025 ambulatory Kristina Stencel Facility:[facility] Start: 02-07-2025 End: 02-07-[address] Sridhar Fay MD -[facility] Work Phone: Start: 02-07-2025 End: 02-07-2025 ambulatory Kristina Stencel Facility:[facility] Start: 01-27-2025 End: 01-27-2025 ambulatory Kristina Stencel Facility:[facility] Start: 01-27-2025 End: 01-27-[address] Kan Ang DO [facility] Work Phone: Start: 01-23-2025 End: 01-23-[address] Arturo Olivas MD [facility] Work Phone: Start: 01-23-2025 End: 01-23-2025 ambulatory Kristina Stencel Facility:[facility] Start: 01-22-2025 End: 01-22-[address] Kan Ang DO [facility] Work Phone: Start: 01-22-2025 End: 01-22-2025 ambulatory Kristina Stencel Facility:[facility] Start: 01-15-2025 End: 01-15-[address] Kan Ang DO [facility] Work Phone: Start: 01-15-2025 End: 01-15-2025 ambulatory Kristina Stencel Facility:[facility] Start: 01-09-[address] Kan Jones on DO -Radiation Oncology Start: 01-08-2025 End: 01-08-[address] Kan Ang DO [facility] Work Phone: Start: 01-08-2025 End: 01-08-2025 ambulatory Kristina Stencel Facility:[facility] Start: 01-06-2025 ambulatory Kristina Stencel Facilit y:[facility] Start: 01-06-2025 Non-patient / Non-visit Dr. Kan jade [facility] Start: 01-03-2025 ambulatory Kristina Stencel Facilit y:[facility] Start: 01-03-2025 Non-patient / Non-visit Dr. Kan jade DO [facility] Start: 01-02-2025 End: 01-02-[address] Arturo Olivas MD -[facility] Work Phone: Start: 01-02-2025 End: 01-02-2025 ambulatory Kristina Stencel Facility:[facility] Start: 12-31-2024 ambulatory Kristina Stencel Facilit y:[facility] Start: 12-31-2024 Non-patient / Non-visit Dr. Kan jade [facility] Start: 12-30-2024 Non-patient / Non-visit Dr. Dusty cordova MD -[facility] Start: 12-30-2024 End: 12-30-[address] Kristina Mcginnis MD Work Phone: [facility] Work Phone: Start: 12-30-2024 End: 12-30-[address] Arturo Olivas MD -Cardiovascular Services Work Phone: Start: 12-30-2024 End: 12-30-2024 ambulatory Kristina Stencel Facility:[facility] Start: 12-26-2024 ambulatory Kristina Stencel Facilit y:[facility] Start: 12-26-2024 Non-patient / Non-visit Dr. Kan jade DO [facility] Start: 12-26-2024 End: 12-26-[address] Kan Ang DO -[facility] Work Phone: Start: 12-26-2024 End: 12-26-2024 ambulatory Kristina Stencel Facility:[facility] Start: 12-12-2024 End: 12-12-2024 Patient encounter procedure Liz AHN -[facility] Work Phone: Start: 12-12-2024 End: 12-12-2024 ambulatory Kristina Stencel Facility:[facility] Start: 12-05-2024 End: 12-05-2024 Patient encounter procedure Liz HAN [facility] Work Phone: Start: 12-05-2024 End: 12-05-2024 ambulatory Kristina Stencel Facility:[facility] Start: 11-28-2024 End: 11-28-[address] Arturo Olivas MD [facility] Work Phone: Start: 11-28-2024 End: 11-28-2024 ambulatory Kristina Stencel Facility:[facility] Start: 11-22-[address] Sridhar Fay MD -Cardiovascular Services Work Phone: Start: 11-22-2024 ambulatory Kristina Stencel Facilit y:[facility] Start: 11-22-2024 Non-patient / Non-visit Dr. Maicol CHRISTIANSEN [facility] Work Phone: Start: 11-15-2024 End: 11-15-[address] Sridhar Fay MD [facility] Work Phone: Start: 11-15-2024 End: 11-15-2024 ambulatory Kristina Stencel Facility:[facility] Start: 11-14-2024 End: 11-14-[address] Arturo Olivas MD [facility] Work Phone: Start: 11-14-2024 End: 11-14-2024 ambulatory Kristina Stencel Facility:[facility] Start: 2024 ambulatory Kristina Stencel Facilit y:[facility] Start: 2024 Non-patient / Non-visit Dr. Maicol [facility]STIANSEN [facility] Start: 2024 End: 2024 Patient encounter procedure Liz HAN [facility] Work Phone: Start: 2024 End: 2024 ambulatory Kristina Stencel Facility:[facility] Start: 10-31-2024 End: 10-31-2024 Patient encounter procedure Liz Arechiga NP-C -[facility] Work Phone: Start: 10-31-2024 End: 10-31-2024 ambulatory Kristina Stencel Facility:[facility] Start: 10-17-2024 End: 10-17-2024 Patient encounter procedure Liz Arechiga AUTOMOTIVE QUALITY MANAGER-C -[facility] Work Phone: Start: 10-17-2024 End: 10-17-2024 ambulatory Kristina Stencel Facility:[facility] Start: 10-10-2024 End: 10-10-[address] Arturo Oliavs MD -[facility] Work Phone: Start: 10-10-2024 End: 10-10-2024 ambulatory Kristina Bajwacel Facility:[facility] Start: 10-07-2024 End: 10-07-[address] Kan Ang DO -[facility] Work Phone: Start: 10-07-2024 End: 10-07-2024 ambulatory Kan Ang Facility:[facility] Start: 10-03-2024 End: 10-03-2024 Patient encounter procedure Liz Arechiga NP-C -[facility] Work Phone: Start: 10-03-2024 End: 10-03-2024 ambulatory Kristina Bajwacel [facility] Start: 09-25-2024 End: 09-25-[address] Arturo Olivas MD -[facility] Work Phone: Start: 09-25-2024 End: 09-25-2024 ambulatory Arturo Olivas [facility] Start: 09-19-2024 End: 09-19-2024 Patient encounter procedure Liz Arechiga NP-Zohaib -[facility] Work Phone: Start: 09-19-2024 End: 09-19-2024 ambulatory Kristina Stencel [facility] Start: 09-12-2024 End: 09-12-2024 Patient encounter procedure Ashley Henderson PA-C -[facility] Work Phone: Start: 09-12-2024 End: 09-12-2024 ambulatory Ashley QUARLES [facility] Start: 09-12-2024 End: 09-12-2024 Patient encounter procedure Liz HAN -[facility] Work Phone: Start: 09-12-2024 End: 09-12-2024 ambulatory Kristina Mcginnis [facility] Start: 04-26-2024 End: 04-26-2024 Assay of hemosiderin, quant Kristina Mcginnis MD Work Phone: [facility] Work Phone: Start: 04-26-2024 End: 04-26-2024 Patient encounter procedure Kristina Mcginnis MD Work Phone: [facility] Comment on above: Routine general medi jimbo examination at health care facility (Primary Dx); Medicare annual wellness visit, subsequent Start: 11-27-2023 End: 11-27-2023 Office outpatient visit 25 minutes Kristina Mcginnis MD Work Phone: [facility] Comment on above: Acute cough (Primary Dx); Malignant neoplasm of upper-inner quadrant of left female breast, unspecified estrogen receptor status (CMS/HCC) Start: 11-17-2023 End: 11-17-2023 Patient encounter procedure Heriberto Barr PLANT MAINTENANCE ENGINEER-CLINIC MANAGER Work Phone: [facility] Comment on above: Acute bronchitis, un specified organism (Primary Dx); Acute sinusitis, recurrence not specified, unspecified location Start: 08-08-2023 End: 08-08-[address] Kristina Mcginnis Work Phone: [facility] Work Phone: Start: 08-08-2023 End: 08-08-[address] Kristina Mcginnis Work Phone: [facility] Work Phone: Start: 06-05-2023 End: 06-05-[address] Kristina Mcginnis Work Phone: [facility] Work Phone: Start: 05-31-2023 End: 05-31-[address] Kristina Mcginnis Work Phone: [facility] Work Phone: Start: 05-31-2023 End: 05-31-[address] Kristina Mcginnis Work Phone: [facility] Work Phone: Start: 05-17-2023 End: 05-17-[address] Kristina Mcginnis Work Phone: [facility] Work Phone: Start: 04-28-2023 Encounter for genera l adult medical examination without abnormal findings KRISTINA MCGINNIS [facility] Ambulatory Start: 04-28-2023 End: 04-28-2023 Assay of hemosiderin, quant Kristina Mcginnis MD Work Phone: [facility] Work Phone: Start: 04-28-2023 End: 04-28-2023 Patient encounter procedure Kristina Mcginnis MD Work Phone: [facility] Comment on above: Medicare annual well ness visit, subsequent (Primary Dx); Routine general medical examination at health care facility Start: 02-28-2023 End: 02-28-2023 Emergency department patient visit Rob Coy [facility] Start: 02-15-2023 End: 02-15-[address] Kristina Mcginnis Work Phone: [facility] Work Phone: Start: 10-18-2022 ambulatory KRISTINA Kumar y:[facility] Start: 10-18-2022 End: 10-18-2022 Office outpatient visit 15 minutes Martha Andres MD Work Phone: [facility] Comment on above: Lung mass (Primary D x) Start: 10-18-2022 End: 10-18-2022 Subsequent hospital visit by physician Osvaldo Pedroza PA-C Work Phone: [facility] Comment on above: Arrived Start: 09-27-2022 End: 09-27-2022 Emergency department patient visit Phu [facility] Emergency 14 Start: 06-06-2022 Chart Update Kristina palm Work Phone: [facility]-[place] [address] Work Phone: Start: 06-02-2022 End: 06-02-[address] Kristina Mcginnis Work Phone: [facility] Start: 06-01-2022 End: 06-01-[address] Kristina Mcginnis Facility:[id number] Start: 05-30-2022 End: 05-30-[address] Kristina Mcginnis Work Phone: [facility] Start: 05-16-2022 Chart Update Kristina palm Work Phone: [facility] Work Phone: Start: 05-11-2022 End: 05-11-[address] Kristina Mcginnis Work Phone: [facility] Start: 05-11-[address] Kristina Winn Facility:[id number] Start: 04-27-2022 Adv care pln/ no alt dcsn mkr docd or refusal Kristina Mcginnis Work Phone: [facility] Work Phone: Start: 03-11-2022 ambulatory KRISTINA MCGINNIS Facilit y:[facility] Start: 02-17-2022 ambulatory KRISTINA MCGINNIS Facilit y:[facility] Start: 02-17-2022 ambulatory KRISTINA MCGINNIS Facilit y:[facility] Start: 02-17-2022 End: 02-17-2022 Office consultation new/estab patient 30 min Ofelia Charles MD Work Phone: Division of Human Genetics Comment on above: History of breast ca ncer (Primary Dx); Family history of breast cancer Start: 02-14-2022 End: 02-14-[address] Kristina Mcginnis Work Phone: [facility] Start: 02-07-2022 End: 02-07-[address] Kristina Mcginnis Work Phone: [facility] Start: 10-06-2021 End: 10-06-2021 ambulatory [facility] Start: 10-04-2021 End: 10-04-2021 ambulatory [facility] Start: 08-05-2021 AUDIT Kristina Bajwa liss Work Phone: [facility] Work Phone: Start: 07-07-2021 ECHO, Provider: KEVIN PERRY ECHO 1,SMCECHO1, Status: Pen, Time: 8:00 AM Kristina Mcginnis Work Phone: [facility] Work Phone: Start: 07-02-2021 AUDIT Kristina Bajwa liss Work Phone: [facility] Work Phone: Start: 07-01-2021 Office outpatient vi sit 25 minutes Kristina Mcginnis Work Phone: [facility] Work Phone: Start: 06-24-2021 Chart Update Kristina Bajwa liss Work Phone: [facility] Work Phone: Start: 06-21-2021 Chart Update Kristina Bajwa liss Work Phone: [facility] Work Phone: Start: 06-15-2021 AUDIT Kristina Bajwa liss Work Phone: [facility] Work Phone: Start: 06-09-2021 Chart Update Kristina palm Work Phone: [facility] Work Phone: Start: 06-07-2021 AUDIT Kristina Bajwa liss Work Phone: [facility] Work Phone: Start: 05-25-2021 AUDIT Kristina Bajwa liss Work Phone: [facility] Work Phone: Start: 05-24-2021 AUDIT Kristina Bajwa liss Work Phone: [facility] Work Phone: Start: 05-24-2021 Chart Update Kristina Bajwa liss Work Phone: [facility] Work Phone: Start: 04-26-2021 Chart Update Kristina Bajwa liss Work Phone: [facility] Work Phone: Start: 04-26-2021 Patient encounter procedure Kristina Mcginnis Work Phone: [facility] Work Phone: Patient encounter procedure Kristina Mcginnis Work Phone: [facility] Work Phone: Procedures Date Procedure Procedure Detail Performing Clinician Start: 08-08-2025 Radex ankle complete minimum 3 views Haven Zavala DPM Work Phone: Start: 07-31-[address] Kristina Mcginnis MD Work Phone: Start: 06-19-2025 CT angiography of ch est with contrast Dr. Kristina Mcginnis MD Work Phone: Start: 06-19-[address] Kristina Mcginnis MD Work Phone: Start: 06-19-2025 Serum inorganic phos phate measurement Dr. Kristina Mcginnis MD Work Phone: Start: 06-14-2025 POCT SARS-COV-2/FLU/ RSV PCR SYMPTOMATIC Heriberto Barr PLANT MAINTENANCE ENGINEER-CLINIC MANAGER Work Phone: Start: 06-13-2025 End: 06-13-[address] Kristina pink MD Work Phone: Start: 05-08-[address] Kristina Mcginnis MD Work Phone: Start: 03-27-[address] Kristina Mcginnis MD Work Phone: Start: 03-27-2025 Serum inorganic phos phate measurement Dr. Kristina Mcginnis MD Work Phone: Start: 12-12-2024 Measurement of renal function Dr. Kristina Mcginnis MD Work Phone: Comment on above: GFR Calc Start: 08-06-2024 PET study for locali zation of tumor Dr. Kristina Mcginnis MD Work Phone: Start: 06-12-2024 Mammography Kristina Mayorga MD Work Phone: Start: 05-31-2023 Screening mammography D r. Kristina Mcginnis Work Phone: Start: 10-18-2022 Follow-up visit Follow-up MARTHA ANDRES Start: 10-18-2022 Ct thorax w/o contra st material Osvaldo Pedroza PAGonzalezC Work Phone: Start: 06-01-2022 End: 06-01-2022 Colonoscopy Kristina Mcginnis Work Phone: Start: 05-30-2022 Screening mammography D r. 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: Biopsy of breast Kristina Briscoe Plan of Treatment Date Care Activity Detail Author Start: 06-01-2032 Screening for malign ant neoplasm of colon [facility] Start: 04-20-2028 DTaP/Tdap/Td Vaccine s (2 - Td or Tdap) DTaP/Tdap/Td Vaccines (2 - Td or Tdap) [facility] Start: 04-20-2028 Tetanus vaccination TETANUS [facility] Start: 06-01-2027 Screening for malign ant neoplasm of colon [facility] Start: 06-13-2026 Screening for malign ant neoplasm of breast Mammogram [facility] Start: 04-30-2026 Medicare Annual Well ness Visit Medicare Annual Wellness Visit (AWV) [facility] Start: 04-30-2026 End: 04-30-2026 Patient encounter procedure 04/30/2026 8:00 AM EDT Office Visit [place] [address] [id number] Kristina Mcginnis MD [facility] [address] [address] [facility] Start: 08-21-2025 Registered Recurring Registered Recu rring -[facility] Start: 08-21-2025 End: 08-21-2025 Patient encounter procedure Breast cancer, left breast -[facility] Work Phone: Start: 08-08-2025 Screening for osteoporosis Bone Density Scan [facility] Start: 07-31-2025 [facility] Start: 06-30-2025 COVID-19 Vaccine ( season) COVID-19 Vaccine ( season) [facility] Start: 06-30-2025 Influenza vaccination Influenza Vacc ine (#1) [facility] Start: 06-19-2025 Venous catheter care management [facility] Start: 06-19-2025 CBC W Auto Different ial panel - Blood [facility] Start: 06-19-2025 Comprehensive metabo lic 2000 panel - Serum or Plasma [facility] Start: 06-19-2025 Magnesium measurement W [facility] Start: 06-19-2025 Serum inorganic phos phate measurement [facility] Start: 06-19-2025 Cancer Ag 125 [Units/volume] in Serum or Plasma [facility] Start: 06-19-2025 Cancer Ag 15-3 [Pres ence] in Serum or Plasma [facility] Start: 06-19-2025 Cancer Ag 27-29 [Presence] in Serum or Plasma [facility] Start: 06-19-2025 Carcinoembryonic Ag [Mass/volume] in Serum or Plasma [facility] Start: 06-19-2025 [facility] Start: 06-12-2025 Screening for malign ant neoplasm of breast Mammogram [facility] Start: 05-08-2025 [facility] Start: 04-29-2025 End: 04-29-2025 Patient encounter procedure 04/29/2025 8:00 AM EDT Office Visit [facility] [address] [place] [id number] Kristina Mcginnis MD [address] [place] [address] [facility] Start: 03-27-2025 [facility] Start: 12-12-2024 Patient referral [facility] Work Phone: Start: 10-03-2024 Patient referral [facility] Work Phone: Start: 09-25-2024 Patient referral [facility] Work Phone: Start: 08-29-2024 Venous catheter care management [facility] Start: 06-30-2024 COVID-19 Vaccine ( season) COVID-19 Vaccine ( season) [facility] Start: 04-29-2024 Medicare Annual Well ness Visit Medicare Annual Wellness Visit (AWV) [facility] Start: 04-26-2024 End: 04-26-2024 Patient encounter procedure 04/26/2024 8:00 AM EDT Office Visit [facility] [address] [place] [place] [address] Kristina Mcginnis MD [address] [place] [address] [facility] Start: 04-15-2024 Lipid panel Lipid Panel [facility] Start: 12-23-2023 COVID-19 Vaccine () COVID-19 Vaccine () [facility] Start: 10-17-2023 COVID-19 Vaccine (4 - Moderna series) COVID-19 Vaccine (4 - Moderna series) [facility] Start: 08-08-2023 Dual energy X-ray absorptiometry Dexa Bone Density Study [facility] Start: 08-08-2023 DXA Bone [Mass/Area] Bone density [facility] Start: 07-29-2023 Screening for malign ant neoplasm of colon FIT [facility] Start: 04-28-2023 Patient encounter procedure [facility] [place] Start: 10-18-2022 End: 10-18-2022 Patient encounter procedure [facility] Start: 06-01-2022 COLON, Provider: Leyla Beebe, Status: Pen, Time: 1:30 PM COLON, Provider: Leyla Beebe, Status: Pen, Time: 1:30 PM [facility] Work Phone: Start: 04-27-2022 Patient encounter procedure MCRANNUAL, Provider: Kristina Mcginnis, Status: Pen, Time: 8:00 AM [facility] Work Phone: Start: 04-26-2022 Diabetes mellitus screening Diabetes Screening [facility] Start: 11-11-2021 COVID-19 VACCINE (4 - Booster for Moderna series) COVID-19 VACCINE (4 - Booster for Moderna series) [facility] Start: 07-12-2021 EVENT BEATRICE, Provider : KEVIN DIAGNOSTIC THERAPIST,SMCMONITOR, Status: Pen, Time: 8:00 AM EVENT BEATRICE, Provider: KEVIN DIAGNOSTIC THERAPIST,SMCMONITOR, Status: Pen, Time: 8:00 AM [facility] Work Phone: Start: 07-07-2021 ECHO, Provider: CHEYENNE QURESHI HHVI ECHO 1,SMCECHO1, Status: Pen, Time: 8:00 AM ECHO, Provider: KEVIN HHVI ECHO 1,SMCECHO1, Status: Pen, Time: 8:00 AM [employer] [facility] Work Phone: Start: 06-21-2021 NPV, Provider: Estefania Jones, Status: Pen, Time: 10:00 AM NPV, Provider: Estefania Jones, Status: Pen, Time: 10:00 AM [employer] [facility] Work Phone: Start: 04-23-2020 MG Breast screening Mamm - Scr eening Mammogram w/ Tomosynthesis [employer] [facility] Work Phone: Start: 2017 Pneumococcal vaccination PNEUM OCOCCAL VACCINE SERIES (1 - PCV) [facility] Start: 2012 RSV High Risk: (Elde rly (60+) or Population) (1 - Risk 60-74 years 1-dose series) RSV High Risk: (Elderly (60+) or Population) (1 - Risk 60-74 years 1-dose series) [facility] Start: 2012 RSV patient s and/or patients aged 60+ years (1 - 1-dose 60+ series) RSV patients and/or patients aged 60+ years (1 - 1-dose 60+ series) [facility] Start: 11-12-2009 MMR Vaccines (1 of 1 - Standard series) MMR Vaccines (1 of 1 - Standard series) [facility] Start: 2002 Zoster vaccine hzv l diana for subcutaneous use ZOSTER (SHINGLES) VACCINE (1 of 2) [facility] Start: 1997 Colonoscopy COLORECTAL CAN CER SCREENING DISCUSSION [facility] Start: 1997 Screening for malign ant neoplasm of colon COLORECTAL CANCER SCREENING DISCUSSION [facility] Start: 1992 Fasting lipid profile LIPID SCREENIN G [facility] Start: 1992 Lipid panel LIPID SCREENING [facility] Start: 1992 Screening for malign ant neoplasm of breast MAMMOGRAM SCREENING DISCUSSION [facility] Start: 1992 Screening mammography MAMMOGRA M SCREENING DISCUSSION [facility] Start: 1973 Screening for malign ant neoplasm of cervix CERVICAL CANCER SCREENING DISCUSSION [facility] Start: 1971 Third diphtheria, te tanus and acellular pertussis (DTaP) vaccination TDAP (ADULT) [facility] Start: 1970 Diabetes mellitus screening Diabetes Screening [facility] Start: 1970 Hepatitis C screening Hepatitis C Sc reening [facility] Start: 1970 Tetanus vaccination TETANUS [facility] Start: 05-07-1953 Examination of skin Derm Melan dmitriy Skin Check [facility] Start: 1952 Hepatitis C antibody , confirmatory test HEPATITIS C VIRUS SCREENING [facility] Start: 1952 Hepatitis C screening HEPATITI S C VIRUS SCREENING [facility] Start: 1952 Lipid panel Lipid Panel [facility] Start: 1952 Medicare Annual Well ness Visit Medicare Annual Wellness Visit (AWV) [facility] Start: 1952 Screening for malign ant neoplasm of colon [facility] Start: 1952 Screening for osteoporosis [facility] Alanine aminotransfe rase [Enzymatic activity/volume] in Serum or Plasma [facility] Albumin [Mass/volume ] in Serum or Plasma [facility] Alkaline phosphatase [Enzymatic activity/volume] in Serum or Plasma [facility] Anion gap in Serum o r Plasma [facility] Bilirubin, total measurement [facility] Breast cyst Breast cyst Comm ents: several removed that were benign [facility] Comment on above: several removed that were benign BUN/Creatinine ratio [facility] Calcium [Mass/volume ] in Serum or Plasma [facility] Carbon dioxide, tota l [Moles/volume] in Central venous blood [facility] CBC W Auto Different ial panel - Blood [facility] CBC W Auto Different ial panel - Blood [facility] CBC W Auto Different ial panel - Blood [facility] CBC W Auto Different ial panel - Blood [facility] Comprehensive metabo lic 1999 panel - Serum or Plasma [facility] Comprehensive metabo lic 1999 panel - Serum or Plasma [facility] Comprehensive metabo lic 1999 panel - Serum or Plasma [facility] Comprehensive metabo lic 1999 panel - Serum or Plasma [facility] Creatinine [Mass/vol ume] in Serum or Plasma [facility] CTA Chest vessels WO and W contrast IV [facility] DXA Bone [Mass/Area] Bone density [facility] Glucose [Mass/volume ] in Serum or Plasma [facility] Hepatic function panel [facility] History of colonoscopy History of colonos copy [facility] History of colonoscopy History o f colonoscopy with polypectomy [facility] History of mastectomy History of lumpecto my [facility] Lipid 1996 panel - S salma or Plasma [facility] Lung cyst Lung cyst Commen ts: removed it was benign [facility] Comment on above: removed it was benig n Magnesium measurement [facility] Measurement of renal function [facility] MG Breast - bilatera l Diagnostic [facility] MG Breast - bilatera l Screening [facility] Work Phone: Patient referral [facility] Work Phone: Potassium measurement [facility] Serum chloride measurement [facility] Serum inorganic phos phate measurement [facility] Sodium measurement [facility] Total protein measurement [facility] Urea nitrogen [Mass/volume] in Serum or Plasma [facility] US Heart limited [facility] US.doppler Lower extremity vein [facility] End: 05-16-2025 XR Ankle - right 3 Views [facility] Service Martinez jorge Work Phone: Comment on above: Once for 1 Occurrenc es starting 05/16/2025 until 05/16/2025 End: 06-13-2025 XR Ankle - right 3 Views [facility] Service Martinez jorge Work Phone: Comment on above: Once for 1 Occurrenc es starting 06/13/2025 until 06/13/2025 End: 07-11-2025 XR Ankle - right 3 Views [facility] Service Ar ea Work Phone: Comment on above: Once for 1 Occurrenc es starting 07/11/2025 until 07/11/2025 -Medical [facility] Work Phone: NEGATED: Highlighted row has been ruled out! Planned Goals not documented -[facility] Work Phone: Immunizations Immunization Date Immunization Notes Care Provider [facility] 07-31-2024 Seasonal trivalent influenza vaccine, adjuvanted, preservative free Dr. Kristina Mcginnis MD Work Phone: [facility] 07-31-2024 influenza virus vacc ine, unspecified formulation Kristina Mcginnis MD Work Phone: [facility] Work Phone: 08-22-2023 Influenza, injectabl e, Madin Cielo Canine Kidney, preservative free, quadrivalent Kristina cMginnis MD Work Phone: [facility] 09-12-2022 zoster vaccine recombinant Kristina Mcginnis MD Work Phone: [facility] Work Phone: 06-13-2022 Influenza, Seasonal, Quadrivalent, Adjuvanted Kristina Mcginnis MD Work Phone: [facility] Work Phone: 06-13-2022 zoster vaccine recombinant Kristina Mcginnis MD Work Phone: [facility] Work Phone: 09-16-2021 COVID-19 vaccine, mR BRYANNA, Michaelraul, booster 0.25 ML Ofelia Charles MD Work Phone: [facility] 06-23-2021 Fluzone High-Dose Quadrivalent 0.7 ML Intramuscular Suspension Prefilled Syringe Kristina Mcginnis Work Phone: [facility] Work Phone: 02-04-2021 Moderna COVID-19 Vac cine 100 MCG/0.5ML Intramuscular Suspension Kristina Mcginnis Work Phone: [facility] Work Phone: 01-06-2021 Moderna COVID-19 Vac cine 100 MCG/0.5ML Intramuscular Suspension Kristina Mcginnis Work Phone: [facility] Work Phone: 07-06-2020 influenza, injectabl e, quadrivalent, preservative free Kristina Mcginnis MD Work Phone: [facility] Work Phone: 07-06-2020 influenza, seasonal, injectable Kristina Mcginnis Work Phone: [facility] Work Phone: Comment on above: Series: 08-07-2019 influenza, injectabl e, quadrivalent, preservative free Kristina Mcginnis MD Work Phone: [facility] Work Phone: 08-07-2019 influenza, seasonal, injectable Kristina Mcginnis [facility] Work Phone: Comment on above: Series: 04-22-2019 pneumococcal polysaccharide vaccine, 23 valent Kristina Mcginnis [facility] Work Phone: Comment on above: Series: 04-20-2018 pneumococcal conjuga te vaccine, 13 valent Kristina Mcginnis [facility] Work Phone: Comment on above: Series: 04-20-2018 tetanus toxoid, redu sarah diphtheria toxoid, and acellular pertussis vaccine, adsorbed Kristina Mcginnis Work Phone: [facility] Work Phone: Comment on above: Series: 07-30-2014 influenza virus vacc ine, whole virus Kristina Mcginnis Work Phone: [facility] Work Phone: 10-15-2009 novel influenza-H1N1 -09, preservative-free, injectable Kristina Mcginnis Work Phone: [facility] Work Phone: 09-11-2007 influenza virus vacc ine, whole virus Kristina Mcginnis Work Phone: [facility] Work Phone: 06-23-1995 hepatitis B vaccine, adult dosage Kristina Mcginnis [facility] Work Phone: Comment on above: Series: 01-19-1995 hepatitis B vaccine, adult dosage Kristina Mcginnis [facility] Work Phone: Comment on above: Series: 12-22-1994 hepatitis B vaccine, adult dosage Kristina Mcginnis [facility] Work Phone: Comment on above: Series: Payers Date Payer Category Payer Medicare (Managed Care) [employer] [id number] 2021 Private Health Insurance [id number] 2021 Self-pay [id number] 2020 Medicare [id number] 2020 Private Health Insurance [id number] 1950 Unknown [id number] 2.16.840.1.911370.3.579.2. 594 1950 Unknown [id number] 2.16.840.1.607780.3.579.2. 594 1950 Unknown [id number] 2.16.840.1.969795.3.579.2. 594 1950 Unknown [id number] 2.16.840.1.954638.3.579.2. 594 1950 Unknown [id number] 2.16.840.1.612181.3.579.2. 594 1950 Unknown [id number] 2.16.840.1.111747.3.579.2. 1069 1950 Unknown [id number] 2.16.840.1.112734.3.579.2. 1069 1952 Unknown [id number] 2.16.840.1.672795.3.579.2. 1069 1952 Unknown [id number] 2.16.840.1.132915.3.579.2. 1069 1952 Unknown [id number] 2.16.840.1.842731.3.579.2. 1244 1952 Unknown [id number] 2.16.840.1.199107.3.579.2. 124 1952 Unknown [id number] 2.16.840.1.064252.3.579.2. 1243 1952 Unknown [id number] 2.16.840.1.079112.3.579.2. 1242 1952 Unknown [id number] 2.16.840.1.224701.3.579.2. 1243 1952 Unknown [id number] 2.16.840.1.583534.3.579.2. 124 1952 Unknown [id number] 2.16.840.1.705292.3.579.2. 1243 Medicare [id number] Unknown Unknown [id number] Unknown [id number] 2.16.840.1.477478.3.579.2. 462 Unknown [id number] 2.16.840.1.594456.3.579.2. 462 Unknown [id number] 2.16.840.1.167365.3.579.2. 462 Unknown [id number] ..840.1.484196.3.579.2. 462 Unknown [id number] 2.840.1.523375.3.579.2. 462 Unknown [id number] 2.840.1.718535.3.579.2. 462 Unknown [id number] 2.840.1.712672.3.579.2. 462 Unknown [id number] .840.1.807230.3.579.2. 462 Unknown [id number] 2..840.1.425302.3.579.2. 462 Unknown [id number] .840.1.143378.3.579.2. 462 Unknown [id number] ..840.1.840729.3.579.2. 462 Unknown [id number] .840.1.236246.3.579.2. 462 Unknown [id number] .840.1.005717.3.579.2. 462 Unknown [id number] 2.16.840.1.045994.3.579.2. 462 Unknown [id number] 2.16.840.1.364495.3.579.2. 462 Unknown [id number] 2.16.840.1.916351.3.579.2. 462 Unknown [id number] 2.16.840.1.942660.3.579.2. 462 Unknown [id number] 2.16.840.1.062282.3.579.2. 462 Unknown [id number] 2.16.840.1.093602.3.579.2. 462 Unknown [id number] 2.16.840.1.465974.3.579.2. 462 Unknown [id number] 2.16.840.1.388269.3.579.2. 462 Unknown [id number] 2.16.840.1.313591.3.579.2. 462 Unknown [id number] 2.16.840.1.909366.3.579.2. 462 Unknown [id number] 2.16.840.1.704055.3.579.2. 462 Unknown [id number] 2.16.840.1.882856.3.579.2. 462 Unknown [id number] 2.16.840.1.330610.3.579.2. 462 Unknown [id number] 2.16.840.1.548047.3.579.2. 462 Unknown [id number] 2.16.840.1.482981.3.579.2. 462 Unknown [id number] 2.16.840.1.615825.3.579.2. 462 Unknown [id number] 2.16.840.1.005700.3.579.2. 462 Unknown [id number] 2.16.840.1.842037.3.579.2. 462 Unknown [id number] 2.16.840.1.334761.3.579.2. 462 Unknown [id number] 2.16.840.1.974457.3.579.2. 462 Unknown [id number] 2.16.840.1.300132.3.579.2. 462 Unknown [id number] 2.16.840.1.800968.3.579.2. 462 Unknown [id number] 2.16.840.1.143861.3.579.2. 462 Unknown [id number] 2.16.840.1.988133.3.579.2. 462 Unknown [id number] 2.16.840.1.017544.3.579.2. 462 Unknown [id number] 2.16.840.1.207426.3.579.2. 462 Unknown [id number] 2.16.840.1.115197.3.579.2. 462 Unknown [id number] 2.16.840.1.060302.3.579.2. 462 Unknown [id number] 2.16.840.1.855014.3.579.2. 462 Unknown [id number] 2.16.840.1.460690.3.579.2. 462 Unknown [id number] 2.16.840.1.892802.3.579.2. 462 Unknown [id number] 2.16.840.1.710778.3.579.2. 462 Unknown [id number] 2.16.840.1.967191.3.579.2. 462 Unknown [id number] 2.16.840.1.573866.3.579.2. 462 Unknown [id number] 2.16.840.1.922302.3.579.2. 462 Unknown [id number] 2.16.840.1.439726.3.579.2. 462 Unknown [id number] 2.16.840.1.426707.3.579.2. 462 Unknown [id number] 2.16.840.1.781006.3.579.2. 462 Unknown [id number] 2.16.840.1.196648.3.579.2. 462 Social History Date Type Detail Facility Assertion Tobacco smoking consumption unknown (finding) [facility] Work Phone: Start: 04-28-2023 End: 05-16-2025 Non-smoker Non-smoker [facility] Work Phone: Start: 09-07-2021 End: 08-21-2025 Tobacco smoking status NHIS Never smoked tobacco [facility] Start: 09-07-2021 End: 04-28-2023 Tobacco use and exposure Smokeless tobacco non-user [facility] Start: 02-17-2022 End: 10-18-2022 Alcohol intake Current drinker of alcohol (finding) [facility] Start: 09-07-2021 History SDOH Alcohol Comment social and rare [facility] Start: 10-19-2021 History SDOH Financial 5 [facility] Start: 10-19-2021 History SDOH Food Worry 1 [facility] Start: 10-19-2021 History SDOH Transpo rt Med 2 [facility] Start: 1950 Sex Assigned At Not on file [facility] Start: 06-02-2022 Tobacco smoking stat us NHIS Unknown if ever smoked [facility] Start: 1950 Sex Assigned At Female W [facility] Start: 10-08-2022 End: 04-26-2024 Exposure to SARS-CoV-2 (event) Not sure [facility] Start: 04-28-2023 End: 06-14-2025 Alcohol intake Ex-drinker (finding) [facility] Work Phone: Start: 04-28-2023 End: 05-16-2025 Tobacco use panel [facility] Work Phone: Start: 01-09-2025 Sex Female (finding) [facility] Start: 09-24-2022 Sex Female [facility] Medical Equipment Procedure Code Equipment Code Equipment Origin al Text Equipment Identifier Dates Lumpectomy, breast, after needle localization, with sentinel lymph node excision and Ligation clip, metallic [id number] FDA Start: 07-11-2024 Lumpectomy, breast, after needle localization, with sentinel lymph node excision and Ligation clip, metallic [id number] FDA Start: 07-11-2024 Insertion, vascular access port ([id number]) Vascular port/catheter [id number] FDA Start: 08-07-2024 SUTURE,LIGA CLIP MED LT200 FDA Start: 07-08-2021 SUTURE,LIGA CLIP MED LT200 FDA Start: 07-08-2021 SUTURE,LIGA CLIP SM LT-100 FDA Start: 07-08-2021 SUTURE,LIGA CLIP SM LT-100 FDA Start: 07-08-2021 SUTURE,LIGA CLIP SM LT-100 FDA Start: 07-08-2021 SUTURE,LIGA CLIP MED LT200 FDA Start: 07-08-2021 SUTURE,LIGA CLIP MED LT200 FDA Start: 07-08-2021 SUTURE,LIGA CLIP SM LT-100 FDA Start: 07-08-2021 SUTURE,LIGA CLIP SM LT-100 FDA Start: 07-08-2021 SUTURE,LIGA CLIP SM LT-100 FDA Start: 07-08-2021 SUTURE,LIGA CLIP MED LT200 FDA Start: 07-08-2021 SUTURE,LIGA CLIP MED LT200 FDA Start: 07-08-2021 SUTURE,LIGA CLIP SM LT-100 FDA Start: 07-08-2021 SUTURE,LIGA CLIP SM LT-100 FDA Start: 07-08-2021 SUTURE,LIGA CLIP SM LT-100 FDA Start: 07-08-2021 SUTURE,LIGA CLIP MED LT200 FDA Start: 07-08-2021 SUTURE,LIGA CLIP MED LT200 FDA Start: 07-08-2021 SUTURE,LIGA CLIP SM LT-100 FDA Start: 07-08-2021 SUTURE,LIGA CLIP SM LT-100 FDA Start: 07-08-2021 SUTURE,LIGA CLIP SM LT-100 FDA Start: 07-08-2021 SUTURE,LIGA CLIP MED LT200 FDA Start: 07-08-2021 SUTURE,LIGA CLIP MED LT200 FDA Start: 07-08-2021 SUTURE,LIGA CLIP SM LT-100 FDA Start: 07-08-2021 SUTURE,LIGA CLIP SM LT-100 FDA Start: 07-08-2021 SUTURE,LIGA CLIP SM LT-100 FDA Start: 07-08-2021 SUTURE,LIGA CLIP MED LT200 FDA Start: 07-08-2021 SUTURE,LIGA CLIP MED LT200 FDA Start: 07-08-2021 SUTURE,LIGA CLIP SM LT-100 FDA Start: 07-08-2021 SUTURE,LIGA CLIP SM LT-100 FDA Start: 07-08-2021 SUTURE,LIGA CLIP SM LT-100 FDA Start: 07-08-2021 SUTURE,LIGA CLIP MED LT200 FDA Start: 07-08-2021 SUTURE,LIGA CLIP MED LT200 FDA Start: 07-08-2021 SUTURE,LIGA CLIP SM LT-100 FDA Start: 07-08-2021 SUTURE,LIGA CLIP SM LT-100 FDA Start: 07-08-2021 SUTURE,LIGA CLIP SM LT-100 FDA Start: 07-08-2021 SUTURE,LIGA CLIP MED LT200 FDA Start: 07-08-2021 SUTURE,LIGA CLIP MED LT200 FDA Start: 07-08-2021 SUTURE,LIGA CLIP SM LT-100 FDA Start: 07-08-2021 SUTURE,LIGA CLIP SM LT-100 FDA Start: 07-08-2021 SUTURE,LIGA CLIP SM LT-100 FDA Start: 07-08-2021 SUTURE,LIGA CLIP MED LT200 FDA Start: 07-08-2021 SUTURE,LIGA CLIP MED LT200 FDA Start: 07-08-2021 SUTURE,LIGA CLIP SM LT-100 FDA Start: 07-08-2021 SUTURE,LIGA CLIP SM LT-100 FDA Start: 07-08-2021 SUTURE,LIGA CLIP SM LT-100 FDA Start: 07-08-2021 SUTURE,LIGA CLIP MED LT200 FDA Start: 07-08-2021 SUTURE,LIGA CLIP MED LT200 FDA Start: 07-08-2021 SUTURE,LIGA CLIP SM LT-100 FDA Start: 07-08-2021 SUTURE,LIGA CLIP SM LT-100 FDA Start: 07-08-2021 SUTURE,LIGA CLIP SM LT-100 FDA Start: 07-08-2021 SUTURE,LIGA CLIP MED LT200 FDA Start: 07-08-2021 SUTURE,LIGA CLIP MED LT200 FDA Start: 07-08-2021 SUTURE,LIGA CLIP SM LT-100 FDA Start: 07-08-2021 SUTURE,LIGA CLIP SM LT-100 FDA Start: 07-08-2021 SUTURE,LIGA CLIP SM LT-100 FDA Start: 07-08-2021 SUTURE,LIGA CLIP MED LT200 FDA Start: 07-08-2021 SUTURE,LIGA CLIP MED LT200 FDA Start: 07-08-2021 SUTURE,LIGA CLIP SM LT-100 FDA Start: 07-08-2021 SUTURE,LIGA CLIP SM LT-100 FDA Start: 07-08-2021 SUTURE,LIGA CLIP SM LT-100 FDA Start: 07-08-2021 SUTURE,LIGA CLIP MED LT200 FDA Start: 07-08-2021 SUTURE,LIGA CLIP MED LT200 FDA Start: 07-08-2021 SUTURE,LIGA CLIP SM LT-100 FDA Start: 07-08-2021 SUTURE,LIGA CLIP SM LT-100 FDA Start: 07-08-2021 SUTURE,LIGA CLIP SM LT-100 FDA Start: 07-08-2021 SUTURE,LIGA CLIP MED LT200 FDA Start: 07-08-2021 SUTURE,LIGA CLIP MED LT200 FDA Start: 07-08-2021 SUTURE,LIGA CLIP SM LT-100 FDA Start: 07-08-2021 SUTURE,LIGA CLIP SM LT-100 FDA Start: 07-08-2021 SUTURE,LIGA CLIP SM LT-100 FDA Start: 07-08-2021 SUTURE,LIGA CLIP MED LT200 FDA Start: 07-08-2021 SUTURE,LIGA CLIP MED LT200 FDA Start: 07-08-2021 SUTURE,LIGA CLIP SM LT-100 FDA Start: 07-08-2021 SUTURE,LIGA CLIP SM LT-100 FDA Start: 07-08-2021 SUTURE,LIGA CLIP SM LT-100 FDA Start: 07-08-2021 SUTURE,LIGA CLIP MED LT200 FDA Start: 07-08-2021 SUTURE,LIGA CLIP MED LT200 FDA Start: 07-08-2021 SUTURE,LIGA CLIP SM LT-100 FDA Start: 07-08-2021 SUTURE,LIGA CLIP SM LT-100 FDA Start: 07-08-2021 SUTURE,LIGA CLIP SM LT-100 FDA Start: 09-09-2021 Functional Status Date Assessment Result Facility 08-08-2025 Functional status [facility] 08-08-2025 [facility] Work Phone: 05-16-2025 Patient Health Questionnaire 2 item (PHQ-2) [Reported] [facility] 04-29-2025 Patient Health Questionnaire 2 item (PHQ-2) [Reported] [facility] Work Phone: NEGATED: Highlighted row Functional performance Functional status health issues are not documented [facility] Work Phone: Mental Status Date Assessment Result Facility NEGATED: Highlighted row Cognitive function [Interpretation] Cognitive status health issues are not documented Disease [facility] Work Phone: Clinical Notes 02-17-2022 to 07-31-2025 Note Date & Type Note Facility 07-31-2025 Progress note [facility] 07-10-2025 Progress note [facility] 07-10-2025 Progress note Note Date/Time July 10, 2025 11:50am [facility] [address] [address] OFFICE VISIT Date of Service: 07/10/25 1111 MR#: [id number] Acct: [id number] Name: REBA BECKFORD Rep #: [id number] : 1950 From: Arturo sanchez MD Age/Sex: 74/F Location: [facility] Status: Signed HPI Subjective Date of Service 07/10/25 Chief Complaint breast cancer on treatment History of Present Illness 74-year-old female with a strong family history of breast cancer (mother and 2 sisters) in addition to colon cancer (brother), leukemia and esophageal cancer (brother) who was compliant with annual screening mammography . She has a remote history of right breast biopsy negative for cancer and past history of colon polyps. May 24, 2021 screening mammography: An ovoid mass in the left breast new in comparison to 12/19/2019. June 03, 2021 ultrasonography, at 10:00 mass measuring 5 mm in maximum diameter. 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 July 08, 2021 left breast partial mastectomy with sentinel lymph node biopsy: MICROSCOPIC DIAGNOSISA. Left axillary sentinel lymph nodes, biopsy:Three out ofthree lymph nodes negative for metastatic carcinoma.B. Left breast mass, needlelocalization lumpectomy:Invasive ductal carcinoma.See cancer summary in the comment section.SJ:phuc 07/13/2021 COMMENTA. Immunohistochemistry ([id number]) supports the above diagnosis.B. BREAST CANCER SUMMARYProcedure ?lumpectomy withwire-guided localization Specimen laterality ?leftInvasive tumor:Tumor site ?upper inner quadrant as per EMRTumor size ?0.5 x 0.2 cm (measured microscopically)Histologic type ?invasive ductal carcinoma, not otherwise specifiedHistologic grade ([place] grade):Glandular/tubular differentiation score -3Nuclear pleomorphism score -3Mitotic count score -2Overall grade ?grade 3(score of 8)Tumor focality ?single focus of invasive carcinomaDuctal carcinoma in situ ?not identified Tumor extension:Skin ?not presentNipple ?not applicableSkeletal muscle ?no skeletal muscle is presentMargins:Invasive carcinoma margin ?The invasive carcinoma is 0.5 cm away from closest inferior margin.Ductal carcinoma in situ margin ?not applicableRegional lymph nodes:Number of lymph nodes examined ?3Number of sentinel lymph nodes examined -3Number of lymph nodes with macrometastases, micrometastases or isolated tumor cells -0Treatment effect ?no known presurgical therapy.Lymphvascular invasion ?not identified Dermal lymphvascular invasion ?not applicableAdditional Pathologic Findings ?fibrocystic changes.Ancillary Studies: Previously performed at [facility] ([id number])ER: Positive (50%, moderate)KY: Positive (10%, moderate tostrong)Dvk9yyz: Equivocal (2+)Dyf9NPEL AMAIRANI ?negative (non-amplified)Microcalcifications ?not identifiedClinical History -Please make reference to previous specimen from [facility] ([id number]) left breast, ultrasound-guided core needle biopsy with diagnosis of ?invasive ductal carcinoma, grade 2-3.?PATHOLOGIC STAGE: pT1a pN0(sn) pMx CT chest August 02, 2021: Was obtained when an abnormality in the left lung was seen on planning radiation therapy for the breast. IMPRESSION: 6.9 cm x 6.7 cm x 6.7 cm solid mass in the peripheral lateral aspect of the left lower lobe abutting the pleural surface. Postoperative changes in the left axillary region. Hepatic cysts. August 17, 2021 Left lower lung mass, CT-guided core biopsy:Solitary fibrous tumor. October 08, 2021 resection of left lower lobe lung mass at [facility]. June 12, 2024 screening mammogram: Right breast BIRADS Category 4: Suspicious- June 19, 2024 Right breast, upper outer quadrant microcalcification, stereotactic core biopsy: Invasive ductal carcinoma. Focal ductal carcinoma in situ ANTIBODY / CLONE RESULT E-Cad (ECH-6) REPEAT CK8 ([id number]) positive Calponin-1 (RZ760K) negative * CK5-6 (D5 & 1684) negative * P40 (BC28) negative * P53 (DO-7) negative (null pattern) Ki-67 (30-9) positive, low 21% MORPHOMETRIC ANALYSIS ER (clone 6F11) 29% , weak intensity KY (clone 16/1E2) 0% Her-2Neu (clone CB11) 3+ July 11, 2024 right partial mastectomy with sentinel lymph node biopsy: MICROSCOPIC DIAGNOSIS A. [place] lymph node, biopsy: One lymph node, negative for metastatic carcinoma. See comment. B. Additional right sentinel lymph node, biopsy: Two out of two lymph nodes, negative for metastatic carcinoma. See comment. C. 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 See cancer summary in the comment section. D. New lateral margin: Negative for carcinoma. Focal fibrocystic changes. See comment. E. New medial margin: Negative for carcinoma. BREAST CANCER SUMMARY Procedure ? Partial mastectomy Specimen laterality - Right Invasive tumor: Tumor site ? Upper outer quadrant Tumor size ? 0.5 x 0.4cm (measured microscopically). Histologic type ? Invasive ductal carcinoma Histologic grade ([place] grade): Glandular/tubular differentiation score - 3 Nuclear pleomorphism score - 3 Mitotic count score - 1 Overall grade - grade 2 (score of 7) Tumor focality ? single focus of invasive carcinoma Ductal carcinoma in situ - Present Positive for extensive intraductal component (EIC). Size (extent) of DCIS ?. DCIS comprises ~70% of total tumor volume. Estimated size of DCIS - 0.7 x 0.4 cm largest focus, measured microscopically Number of blocks with DCIS - 2 Number of blocks examined ? 17 (specimen B, C & D) Architectural pattern ? [place] and solid Nuclear grade - grade 3 (high) Necrosis - present, central (expansive comedo necrosis) Lobular carcinoma in situ ? Not identified Tumor extension: Skin ? Not present Nipple ? Not applicable Skeletal muscle ? Present, not involved by tumor (specimen D) Margins: Margins are free of invasive carcinoma and ductal carcinoma in situ. Invasive carcinoma is 1.0 cm from the closest superior margin. (biopsy cavity present at the medial margin, however, no tumor is noted at the margin) new medial margin is also negative for carcinoma. Ductal carcinoma in situ is 0.5 cm away from the closest posterior margin. Regional lymph nodes: Number of lymph nodes examined - 3 Number of sentinel lymph nodes examined - 3 Number of lymph nodes with macrometastases, micrometastases or isolated tumor cells - 0 Treatment effect - no known presurgical therapy. Lymphvascular invasion ? Not identified Dermal lymphvascular invasion ? Not applicable Additional Pathologic Findings ? Changes consistent previous biopsy site. Fibrocystic changes and lobular involution. Ancillary Studies: Previously performed on same tumor ([id number] / [id number]) ER: positive (29%, weak intensity) KY: negative (0) Zyl6uxj: positive (3+) Ki67: low, 21% Microcalcifications ? Present in non-neoplastic tissue and invasive carcinoma Clinical History ? please make reference to previous specimen [id number], right breast, stereotactic core biopsy with diagnosis of invasive ductal carcinoma and ductal carcinoma in situ. PATHOLOGIC STAGE: pT1a pN0(sn) pMx August 06, 2024 PET/CT: IMPRESSION: 1. Increase in radiopharmaceutical concentration superficially apparent in the right anterior chest wall-breast likely represents postoperative change. If neoplasm remains a diagnostic consideration, correlation with suspected pathologic sampling is recommended. 2. No other scintigraphic abnormalities are identified, there is no definitive scintigraphic evidence of distant metastatic disease. Treatment summary and response: * Left breast partial mastectomy with sentinel lymph node: July 08, 2021. Adjuvant hormonal therapy with aromatase inhibitor September 2021-May 2024 Adjuvant radiation therapy: 08/30/2021 ? 09/21/2021: received 4256 cGy of in 16 fractions to the left breast * Right breast July 11, 2024 right partial mastectomy with sentinel lymph node biopsy. August 29, 2024-November 2024 adjuvant Herceptin with weekly Taxol (12 doses) Adjuvant radiation to the right breast 01/06/2025- 01/27/2025 January 02, 2025 maintenance Herceptin Adjuvant hormonal therapy with tamoxifen January 2025- Interval History Ankle sprain April 2025 in orthopedic boot. [facility] Medical History (Updated 07/10/25 @ 11:[address] Arturo Olivas MD) Pulmonary embolism DVT (deep venous thrombosis) Encounter for monoclonal antibody treatment for malignancy HER2-positive carcinoma of breast Hypokalemia Lymphedema of right upper extremity Acid reflux Drug induced neutropenia Encounter for chemotherapy management Encounter for education Post-menopausal Back pain Injury of back History of stress test History of irregular heartbeat COVID ER+ (estrogen receptor positive status) Wears glasses Cancer Easy bruising Lightheadedness Heartburn Non-smoker History of colonic polyps Breast cancer, left breast (~05/2021) Multinodular non-toxic goiter Surgical History Hx of partial mastectomy S/P lumpectomy, right breast History of lung surgery History of lumpectomy of left breast (~06/2021) Hx of tubal ligation History of colonoscopy (~03/2017) History of left breast biopsy (~05/2021) History of right breast biopsy (~1980) Family History Brother Colon cancer Hypertension Cancer Leukemia Mother Breast cancer Sister Breast cancer Lymphoma Hypertension Aunt Breast cancer Social History household members: spouse Smoking Status: Never smoker second hand exposure: No alcohol intake: never substance use type: does not use caffeine: No lizbeth/christian: Jain seatbelt use: always do you feel safe at home: Yes ROS Constitutional Constitutional: Reports systems reviewed and no addt'l complaints, except as documented; Denies fever(s) or weight loss Eyes Eyes: Reports systems reviewed and no addt'l complaints, except as documented ENT HEENT: Reports systems reviewed and no addt'l complaints, except as documented; Denies mouth lesions Cardiovascular Cardiovascular: Reports systems reviewed and no addt'l complaints, except as documented, edema, palpitations and other Details: Right lower extremity edema noted following right lower extremity injury ; Denies chest pain with activity Respiratory/Chest Respiratory/Chest: Reports systems reviewed and no addt'l complaints, except as documented and other Details: Cough and dyspnea resolved ; Denies cough, dyspnea or hemoptysis Gastrointestinal Gastrointestinal: Reports systems reviewed and no addt'l complaints, except as documented; Denies abdominal pain or change in bowel habits Genitourinary Genitourinary: Reports systems reviewed and no addt'l complaints, except as documented Musculoskeletal Musculoskeletal: Reports systems reviewed and no addt'l complaints, except as documented; Denies back pain Integumentary Integumentary: Reports systems reviewed and no addt'l complaints, except as documented, new lesions and other Details: None itchy lesions over the extremities and stomach area, first lesion was prior to starting Eliquis. Neurologic Neurologic: Reports systems reviewed and no addt'l complaints, except as documented; Denies focal weakness Psychiatric Psychiatric: Reports systems reviewed and no addt'l complaints, except as documented Endocrine Endocrinology: Reports systems reviewed and no addt'l complaints, except as documented Hematologic/Lymphatic Hematologic/Lymphatic: Reports systems reviewed and no addt'l complaints, exceptas documented Allergic/Immunologic Allergic/Immunologic: Reports systems reviewed and no addt'l complaints, except as documented Intake Vital Signs 05/08/25 09:46 07/07/25 10:02 07/10/25 11:12 07/10/25 11:21 Height 5 ft 8 in 5 ft 8 in 5 ft 8 in 5 ft 8 in Weight: 80.881 kg 80.796 kg BMI 27.1 27.1 BP 164/85 H 153/86 H Blood Pressure Location Lt brachial Lt brachial Position Sitting Sitting Respiration 16 18 Pulse 64 64 Pulse Source Monitor Monitor Temp 96.8 F L 97.5 F L Temperature Source Temporal Artery Temporal Artery Pulse Oximetry (%) 98 96 Oxygen Delivery Method room air room air Comment PT WEARING MEDICAL BOOT, HIGHER WEIGHT Intake Is patient in pain?: No Allergies naproxen (From Naprosyn) Adverse Reaction (Severe, Verified 07/10/25 11:15) Hives tamoxifen Adverse Reaction (Unknown, Verified 07/10/25 11:15) DVT Medications ?Medication ?Instructions ?Recorded ?Confirmed ?Type calcium 600 mg (as 1 cap PO BID 11/08/21 History carbonate)-vitamin D3 12.5 mcg (500 unit) capsule (Calcium with Vit D3) lidocaine-prilocaine 2.5 %-2.5 % 1 applic topical ONCE PRN port 08/19/24 07/10/25 Rx topical cream access 30 days #30 grams ondansetron 8 mg disintegrating 8 mg PO Q8H PRN nausea and 08/19/24 07/10/25 Rx tablet vomiting #30 tabs apixaban 5 mg tablet (Eliquis) 5 mg PO BID 07/10/25 History Have you fallen in the past year?: No Central Venous Access Central Venous Access: Yes Port/PICC: Port Exam Physical Exam Narrative ECOG 1 Const alert, oriented x3 and no apparent distress General Appearance: cooperative and comfortable HEENT normocephalic Face and Sinus: normal facial exam Mouth: oral and palatal mucosa normal Eyes General Eye: normal appearance of both eyes Neck no lymphadenopathy and no JVD Resp clear to auscultation bilaterally Cardio regular rate and regular rhythm Jugular Venous Distention: Negative for JVD GI soft to palpation, non-tender and non-distended; Negative for hepatosplenomegaly Back/Spine no thoracic nor lumbar tenderness Extremity Extremity Narrative: Right ankle in orthopedic boot General Extremity: edema right lower extremity moderate Skin no rashes or lesions noted Neuro oriented x3, CN's II-XII intact bilaterally and no focal motor deficits Coordination / Balance: wgvjcz-tz-ksqm test normal Speech: speech normal Gait (Neuro): normal gait Psych mental status grossly normal Coding Level of Care Code Off vis,est,level 4 Exam Problem Focused Diagnoses Malignant neoplasm of upper-inner quadrant of left breast in female, estrogen receptor positive C50.212; Z17.0 Breast location: upper inner quadrant of breast Estrogen receptor status: positive Patient sex: female Acute deep vein thrombosis (DVT) of right lower extremity, unspecified vein I82.401 DVT location: lower extremity Affected thrombotic vein of extremity: unspecified vein of extremity Chronicity: acute Laterality: right Pulmonary embolism I26.99 Assessment and Plan Assessment and Plan (1) Breast cancer, left breast: Status: Chronic Qualifiers: Breast location: upper inner quadrant of breast Estrogen receptor status: positive Patient sex: female Qualified Code(s): C50.212 - Malignant neoplasm of upper-inner quadrant of left female breast; Z17.0 - Estrogen receptor positive status [ER+] (2) DVT (deep venous thrombosis): Status: Acute Qualifiers: DVT location: lower extremity Affected thrombotic vein of extremity: unspecified vein of extremity Chronicity: acute Laterality: right Qualified Code(s): I82.401 - Acute embolism and thrombosis of unspecified deep veins of right lower extremity Comment: While on tamoxifen and limited activity due to fracture right fibula May 2025 (3) Pulmonary embolism: Status: Acute Comment: While on tamoxifen and limited activity due to fracture right fibula May 2025 Plan 74-year-old female with bilateral breast cancers: 1. 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 Carcinoma is ER positive (50%, moderate) KY positive (10%, moderate to strong) HER-2 equivocal 2+ by IHC, negative by FISH. Cancer was detected on screening mammography measuring 5 mm in maximum diameter . Patient is status post left partial mastectomy with sentinel lymph node biopsy June 2021, received adjuvant radiation August 2021. Started adjuvant hormonal therapy with an aromatase inhibitor September 2021. 2. Right breast cancer: 2023 invasive ductal cancer; stage I (T1a, N0, M0). Cancer is ER positive (29%, weak) KY negative (0) HER2/asif overexpressed 3+ and Ki-67 low at 21%. Cancer was detected on screening mammography. Patient is status post right partial mastectomy with sentinel lymph node biopsy June 2024 while still on adjuvant hormonal therapy with Arimidex. PET/CT July 2024 showed no evidence of distant metastases. Started adjuvant systemic chemo immune therapy with weekly Taxol Herceptin August 29, 2024. After completion of 12 weeks of chemoimmunotherapy she started maintenance immunotherapy was trastuzumab and started adjuvant hormonal therapy with tamoxifen January 2025. While on tamoxifen she had an accidental injury to her right lower extremity, fractured the right fibula, was placed on orthopedic boot with limited activity. May 2025 confirmed to have developed right lower extremity proximal DVT complicated with pulmonary embolism. Was started on Eliquis and tamoxifen was discontinued. Patient has a family history of breast cancer (2 sisters and mother). Genetic testing was done at [facility] January 2022, no deleterious genetic mutation was identified. 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 Plan: Based on NCCN guidelines and up-to-date review of treatment of breast cancer. 1-concluded 12 weeks of paclitaxel with Herceptin and is to conclude total 12 months of immunotherapy with trastuzumab. 2-discontinue adjuvant hormonal treatment with tamoxifen being partly involved (in addition to limited mobility from fracture right fibula) with right lower extremity proximal DVT and pulmonary embolism. Discussed and she did not wish to continue with tamoxifen and Eliquis concomitantly for a full course of adjuvant hormonal therapy. 3-patient will have serial evaluation of cardiac ejection fraction by echo every 3 months. Her last ejection fraction was normal at 55% March,. She is also followed in cardio oncology clinic including for her reported palpitations 4-started Eliquis on June 19, 2025 for provoked right lower extremity proximal DVT and pulmonary embolism. She will continue for at least 3 months and reassessment at the end. Tamoxifen has been discontinued and if she resumes normal full ambulation it may be discontinued then. 5-skin rash, it is unclear what caused it, onset preceded Eliquis. Will continue to watch and if it does not resolve after the end of Herceptin course and anticoagulation would advise dermatology evaluation and possible biopsy. Patient was seen with her , impression and plan discussed. Arturo Olivas MD Pattern Chart Writer, [facility] Divisions of Medical Oncology & Hematology Department of Internal Medicine [place] [id number] This note was generated using a voice recognition system software. Although it was reviewed by the author prior to finalization, it may still contain incorrect words, spelling, and punctuation that were not noted when reviewing prior to saving. If a clinically significant typo or inaccurately typed phrase is noted, please notify the author. Clinical Quality Measures Falls Risk Screening/Assistive Devices Have you fallen in the past year?: No 07/10/25 1150 <Electronically signed by Arturo mahoney MD> Date _ Arturo Olivas MD Cosigner Signature: Date (if applicable) CC: Dr. Kristina Mcginnis MD ~ [facility] Work Phone: [phone]) 122-846508-21-2025 Radiology Diagnostic study note [facility] [address] [place] [address] CTA Chest W/WO Contrast MR#: [id number] Acct: [id number] Name: REBA BECKFORD Rep #: [id number] : 1950 F 74 From: Johann Tena MD PCP: Dr. Kristina Mcginnis MD Status: RE G CLI Study:CTA Chest W/WO Contrast Date of Exam: 06/19/25 Exam# [id number] Ordering Dr: Arturo Olivas MD PROCEDURE: CTA CHEST W/WO CONTRAST 06/19/2025 REASON FOR EXAM: R/O PE, DYSPNEA, COUGH TECHNIQUE: CTA CHEST W/WO CONTRAST Multiplanar Sagittal and Coronal images were obtained. CONTRAST: Isovue 370 VOLUME: 94 mL One or more dose reduction techniques were used (e.g., Automated exposure control, adjustment of the mA and/or kV according to patient size, use of iterative reconstruction technique). RADIATION DOSE SUMMARY: CTDlvol: 7.18 mGy DLP: 267.93 mGycm COMPARISON: None # of known CTs in the past 12 months: 0 # of known Cardiac Nuclear Medicine Studies in the past 12 months: 0 FINDINGS: Thoracic Aorta: No aneurysm. No dissection. Heart: No right heart strain. The heart is normal size. A right-sided Port-A-Cath terminates at thecavoatrial junction. Pulmonary Vessels: Filling defect in the distal right pulmonary artery extendingto the proximal upper and lower lobes proximal and segmental arteries. Hardware: None. Lymph nodes: No lymphadenopathy. Lungs and Airways: Round atelectasis with associated airspace opacity in the posterior right lower lobe. Pleura: Small right pleural effusion. Upper Abdomen: A 9.5 cm simple cyst in the right liver. Bones: CT/CTA Chest W/WO Contrast IMPRESSION: Filling defect in the distal right pulmonary artery extending to the proximal upper and lower lobesproximal and segmental arteries consistent with pulmonary embolism. No right heart strain. Round atelectasis with associated airspace opacity in the posterior right lower lobe may represent pneumonia. Metastasis less likely but can not be excluded. Findings were discussed with Madison Brown on 06/19/2025 4:56 p.m. Eastern time. Reading Location: [facility] CC: Dr. Arturo Olivas MD; Dr. Kristina Mcginnis MD ~ Yeast Cake Cutter: Signed [facility]08-16-2025 History of Present illness Narrative* RANI Hays - 06/14/2025 8:55 AM EDT [facility] RANI Hays Visit Note - 06/14/2025 10:12 AM This note was generated with voice recognition software and may contain errors including spelling, grammar, syntax, and misrecognization of what was dictated. Patient: Reba Beckford, , 74 y.o., female PCP: Kristina Mcginnis MD ALLERGIES: Allergies[1] CURRENT MEDICATIONS: Current Outpatient Medications Medication Instructions azithromycin (Zithromax Z-Natalio) 250 mg tablet Take 2 tablets by mouth at once on day 1, then 1 tablet once a day on days 2-5. Take with a meal. benzonatate (TESSALON) 100-200 mg, oral, Every 8 hours PRN, Do not crush or chew. calcium carbonate 600 mg calcium (1,500 mg) tablet 2 tablets, Daily tamoxifen (Nolvadex) 20 mg tablet 1 tablet, Daily (0630) Also currently receiving Herceptin infusions q3 weeks. PAST MEDICAL HX: Problem List[2] SURGICAL HX: Surgical History[3] FAMILY HX: No pertinent history. SOCIAL HX: reports that she has never smoked. She has never used smokeless tobacco. CHIEF COMPLAINT: Chief Complaint Patient presents with Cough Chills, cough x 1 week, cold chills, fever on 06/13/25 taking otc ibuprofen, runny nose (clear) HISTORY OF PRESENT ILLNESS: The history was obtained from patient. Reba is a 74 y.o. female, who presents with a chief complaint of a persistent, dry cough, fevers/chills (Tmax 100.4f), runny nose (clear mucus), intermittent wheezing, and heartburn/nausea that seem to be triggered by coughing fits - sxs started on Monday or Monday. Denies any body aches, sore throat, ear pain (had some initially but it has resolved), abdominal pain, chest pain, shortness of breath, rashes, urinary symptoms, vomiting, and diarrhea. Denies any lightheadedness or dizziness; no changes in mental status. No newswelling in legs (has boot on R leg due to fractured fibula). Appetite is decreased ; is able to eat and drink fluids without difficulty; denies loss of sense of taste or smell. Reports symptoms havebeen persisting without much change since onset. Has been taking cough drops, honey water, and ibuprofen with some temporary relief; no other uvhy-vkn-dcyailv medications or home remedies for symptommanagement. No known ill contacts. Has received the COVID vaccine x 4. Has received this season's in fluenza vaccine.. No known history of COVID infection. Is not a smoker. No known history of asthma/COPD/respiratory issues but does have a history of allergies, and has an albuterol inhaler at home for PRN use. Is currently on Tamoxifen and Herceptin infusions for treatment of breast CA. REVIEW OF SYSTEMS: 10 systems reviewed negative with exception of history of present illness as listed above. TODAY'S VITALS: BP 135/73 Pulse 79 Temp 36.8 C (98.2 F) (Oral) Resp 18 Ht 1.727 m (5' 8) Wt 81.6 kg (180 lb) SpO2 95% BMI 27.37 kg/m PHYSICAL EXAMINATION: General: Mildly ill-appearing, well nourished female; alert and oriented; in no acute distress. Sitting comfortably on exam chair. Non-dyspneic. Eyes: Pupils equal, round and reactive to light. No conjunctival erythema; no scleral icterus. HENT: No frontal or maxillary sinus tenderness; + audible nasal congestion. Airway patent, TMs and ear canals clear/unremarkable bilaterally. Nasal mucosa mildly injected and edematous. Oral mucosa moist. Posterior pharynx mildly injected but without lesions or oropharyngeal exudate aside from PND.Uvula is midline. Managing oral secretions without difficulty. Neck: Supple. Mildly tender, mobile anterior cervical lymphadenopathy bilat. Trachea is midline. Respiratory: Respirations easy and unlabored, Breath sounds equal. Lungs are clear to auscultation;no wheezes, rhonchi, or rales; has good air movement throughout. + non-productive cough noted. Non-dyspneic with ambulation; able to maintain SpO2. Cardiovascular: Normal rate, Regular rhythm. Normal S1S2. No m/r/g. No peripheral edema. Gastrointestinal: Soft, non-tender, non-distended; no palpable masses or organomegaly. Bowel soundsnormoactive. Musculoskeletal: Grossly normal; appropriate for age. Integumentary: [place], warm, dry, and intact. No rashes or skin discoloration appreciated. Good skin turgor. Neurologic: Alert and oriented, no gross deficits. Cognition and Speech: Oriented, Speech clear and coherent. Psychiatric: Cooperative, Appropriate mood & affect. Medical Decision Making LABORATORY or RADIOLOGICAL IMAGING ORDERS/RESULTS: COVID/influenza/RSV PCR tests done - results pending. IMPRESSION/PLAN: Course: Worsening; stable 1. Viral URI with cough (Primary) - POCT SARS-COV-2/FLU/RSV PCR SYMPTOMATIC manually resulted - benzonatate (Tessalon) 100 mg capsule; Take 1-2 capsules (100-200 mg) by mouth every 8 hours if needed for cough. Do not crush or chew. Dispense: 60 capsule; Refill: 0 - azithromycin (Zithromax Z-Natalio) 250 mg tablet; Take 2 tablets by mouth at once on day 1, then 1 tablet once a day on days 2-5. Take with a meal. Dispense: 6 tablet; Refill: 0 - continue Albuterol inhaler (has at home) No red flags on exam today. Symptoms consistent with viral URI with associated symptoms, but reviewed other potential etiologies, and nasal swab obtained (using proper PPE) for COVID-19/influenza/RSVtesting to err on the side of caution. No antibiotics indicated at this point, but rx for watch and wait antibiotic (Zithromax) provided, with instructions to begin only if symptoms not improving over the next few days. In the meantime, encouraged conservative measures- instructed to push fluids,rest, and to use appropriate over the counter medications as needed for management of symptoms. Will start benzonatate for PRN use, and advised can also continue albuterol inhaler as needed. Advised can review test results on the portal and office will contact pt within the next 24-48 hours. Reviewed instructions for self-isolation and continued monitoring. Reviewed red flags to monitor for, counseled on potential adverse reactions of treatments, expectations for improvement in sxs, and advisedto follow-up with primary care provider in 3-5 days if symptoms persist, or to seek care sooner if worsening or if any additional concerns/red flags develop. Should also contact Oncologist YOLIS to discuss today's visit and plan for follow up. Patient agreed with plan of care; questions were encouraged and answered. RANI Hays Advanced Practice Provider [facility] [1] Allergies Allergen Reactions Naproxen Hives [2] Patient Active Problem List Diagnosis Multinodular non-toxic goiter Palpitations Solitary fibrous tumor History of breast cancer Medicare annual wellness visit, subsequent Malignant neoplasm of upper-inner quadrant of left female breast, unspecified estrogen receptor status [3] Past Surgical History: Procedure Laterality Date BREAST LUMPECTOMY Right 07/11/2024 BREAST LUMPECTOMY Left OTHER SURGICAL HISTORY 04/23/2020 [facility] Phone: 1(628) 421-355907-31-2025 [facility] [address] [place] [address] OFFICE VISIT Date of Service: 05/29/25 1103 MR#: [id number] Acct: [id number] Name: REBA BECKFORD Rep #: [id number] : 1950 From: Darryl Real MD Age/Sex: 74/F Location: [facility] Status: Signed HPI Subjective Date of Service 05/29/25 Chief Complaint breast cancer on treatment History of Present Illness 74-year-old female with a strong family history of breast cancer (mother and 2 sisters) in additionto colon cancer (brother), leukemia and esophageal cancer (brother) who was compliant with annual screening mammography . She has a remote history of right breast biopsy negative for cancer and past history of colon polyps. May 24, 2021 screening mammography: An ovoid mass in the left breast new in comparison to 12/19/2019. June 03, 2021 ultrasonography, at 10:00 mass measuring 5 mm in maximum diameter. 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 July 08, 2021 left breast partial mastectomy with sentinel lymph node biopsy: MICROSCOPIC DIAGNOSISA. Left axillary sentinel lymph nodes, biopsy:Three out ofthree lymph nodes negative for metastatic carcinoma.B. Left breast mass, needlelocalization lumpectomy:Invasive ductal carcinoma.See cancer summary in the comment section.SJ:phuc 07/13/2021 COMMENTA. Immunohistochemistry ([id number]) supports the above diagnosis.B. BREAST CANCER SUMMARYProcedure ?lumpectomy withwire-guided localization Specimen laterality ?leftInvasive tumor:Tumor site ?upper inner quadrant as per EMRTumor size ?0.5 x 0.2 cm (measured microscopically)Histologic type ?invasive ductal carcinoma, not otherwise specifiedHistologic grade ([place] grade):Glandular/tubular differentiation score -3Nuclear pleomorphism score -3Mitotic count score -2Overall grade ?grade 3(score of 8)Tumor focality ?single focus of invasive carcinomaDuctal carcinoma in situ ?not identified Tumor extension:Skin ?not presentNipple ?not applicableSkeletal muscle ?no skeletal muscle is presentMargins:Invasive carcinoma margin ?The invasive carcinoma is 0.5 cm away from closest inferior margin.Ductal carcinoma in situ margin ?not applicableRegional lymph nodes:Number of lymph nodes examined ?3Number of sentinel lymph nodes examined -3Number of lymph nodes with macrometastases, micrometastases or isolated tumor cells -0Treatment effect ?no known presurgical therapy.Lymphvascular invasion ?not identified Dermal lymphvascular invasion ?not applicableAdditional Pathologic Findings ?fibro cystic changes.Ancillary Studies: Previously performed at [facility] ([id number])ER: Positive (50%, moderate)KY: Positive (10%, moderate tostrong)Nxy7hbh: Equivocal (2+)[id number] AMAIRANI ?negative(non- amplified)Microcalcifications ?not identifiedClinical History -Please make reference to previous specimen from [facility] ([id number]) left breast, ultrasound-guided core needle biopsy with diagnosis of ?invasive ductal carcinoma, grade 2-3.?PATHOLOGIC STAGE: pT1a pN0(sn) pMx CT chest August 02, 2021: Was obtained when an abnormality in the left lung was seen on planning radiation therapy for the breast. IMPRESSION: 6.9 cm x 6.7 cm x 6.7 cm solid mass in the peripheral lateral aspect of the left lower lobe abutting the pleural surface. Postoperative changes in the left axillary region. Hepatic cysts. August 17, 2021 Left lower lung mass, CT-guided core biopsy:Solitary fibrous tumor. October 08, 2021 resection of left lower lobe lung mass at [facility]. June 12, 2024 screening mammogram: Right breast BIRADS Category 4: Suspicious- June 19, 2024 Right breast, upper outer quadrant microcalcification, stereotactic core biopsy: Invasive ductal carcinoma. Focal ductal carcinoma in situ ANTIBODY / CLONE RESULT E-Cad (ECH-6) REPEAT CK8 ([id number]) positive Calponin-1 (EO545J) negative * CK5-6 (D5 & 1684) negative * P40 (BC28) negative * P53 (DO-7) negative (null pattern) Ki-67 (30-9) positive, low 21% MORPHOMETRIC ANALYSIS ER (clone 6F11) 29% , weak intensity KY (clone 16/1E2) 0% Her-2Neu (clone CB11) 3+ July 11, 2024 right partial mastectomy with sentinel lymph node biopsy: MICROSCOPIC DIAGNOSIS A. [place] lymph node, biopsy: One lymph node, negative for metastatic carcinoma. See comment. B. Additional right sentinel lymph node, biopsy: Two out of two lymph nodes, negative for metastatic carcinoma. See comment. C. 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 See cancer summary in the comment section. D. New lateral margin: Negative for carcinoma. Focal fibrocystic changes. See comment. E. New medial margin: Negative for carcinoma. BREAST CANCER SUMMARY Procedure ? Partial mastectomy Specimen laterality - Right Invasive tumor: Tumor site ? Upper outer quadrant Tumor size ? 0.5 x 0.4cm (measured microscopically). Histologic type ? Invasive ductal carcinoma Histologic grade ([place] grade): Glandular/tubular differentiation score - 3 Nuclear pleomorphism score - 3 Mitotic count score - 1 Overall grade - grade 2 (score of 7) Tumor focality ? single focus of invasive carcinoma Ductal carcinoma in situ - Present Positive for extensive intraductal component (EIC). Size (extent) of DCIS ?. DCIS comprises ~70% of total tumor volume. Estimated size of DCIS - 0.7 x 0.4 cm largest focus, measured microscopically Number of blocks with DCIS - 2 Number of blocks examined ? 17 (specimen B, C & D) Architectural pattern ? [place] and solid Nuclear grade - grade 3 (high) Necrosis - present, central (expansive comedo necrosis) Lobular carcinoma in situ ? Not identified Tumor extension: Skin ? Not present Nipple ? Not applicable Skeletal muscle ? Present, not involved by tumor (specimen D) Margins: Margins are free of invasive carcinoma and ductal carcinoma in situ. Invasive carcinoma is 1.0 cm from the closest superior margin. (biopsy cavity present at the medial margin, however, no tumor is noted at the margin) new medial margin is also negative for carcinoma. Ductal carcinoma in situ is 0.5 cm away from the closest posterior margin. Regional lymph nodes: Number of lymph nodes examined - 3 Number of sentinel lymph nodes examined - 3 Number of lymph nodes with macrometastases, micrometastases or isolated tumor cells - 0 Treatment effect - no known presurgical therapy. Lymphvascular invasion ? Not identified Dermal lymphvascular invasion ? Not applicable Additional Pathologic Findings ? Changes consistent previous biopsy site. Fibrocystic changes and lobular involution. Ancillary Studies: Previously performed on same tumor ([id number] / [id number]) ER: positive (29%, weak intensity) KY: negative (0) Ugb7dxa: positive (3+) Ki67: low, 21% Microcalcifications ? Present in non-neoplastic tissue and invasive carcinoma Clinical History ? please make reference to previous specimen [id number], right breast, stereotactic core biopsy with diagnosis of invasive ductal carcinoma and ductal carcinoma in situ. PATHOLOGIC STAGE: pT1a pN0(sn) pMx August 06, 2024 PET/CT: IMPRESSION: 1. Increase in radiopharmaceutical concentration superficially apparent in the right anterior chest wall-breast likely represents postoperative change. If neoplasm remains a diagnostic consideration, correlation with suspected pathologic sampling is recommended. 2. No other scintigraphic abnormalities are identified, there is no definitive scintigraphic evidence of distant metastatic disease. Treatment summary and response: * Left breast partial mastectomy with sentinel lymph node: July 08, 2021. Adjuvant hormonal therapy with aromatase inhibitor September 2021-May 2024 Adjuvant radiation therapy: 08/30/2021 ? 09/21/2021: received 4256 cGy of in 16 fractions to the left breast * Right breast July 11, 2024 right partial mastectomy with sentinel lymph node biopsy. August 29, 2024-November 2024 adjuvant Herceptin with weekly Taxol (12 doses) Adjuvant radiation to the right breast 01/06/2025- 01/27/2025 January 02, 2025 maintenance Herceptin Adjuvant hormonal therapy with tamoxifen January 2025- Interval History Comes for follow up/adjuvant Herceptin analogue [facility] Medical History Encounter for monoclonal antibody treatment for malignancy HER2-positive carcinoma of breast Hypokalemia Lymphedema of right upper extremity Acid reflux Drug induced neutropenia Encounter for chemotherapy management Encounter for education Post-menopausal Back pain Injury of back History of stress test History of irregular heartbeat COVID ER+ (estrogen receptor positive status) Wears glasses Cancer Easy bruising Lightheadedness Heartburn Non-smoker History of colonic polyps Breast cancer, left breast (~05/2021) Multinodular non-toxic goiter Surgical History Hx of partial mastectomy S/P lumpectomy, right breast History of lung surgery History of lumpectomy of left breast (~06/2021) Hx of tubal ligation History of colonoscopy (~03/2017) History of left breast biopsy (~05/2021) History of right breast biopsy (~1980) Family History Brother Colon cancer Hypertension Cancer Leukemia Mother Breast cancer Sister Breast cancer Lymphoma Hypertension Aunt Breast cancer Social History household members: spouse Smoking Status: Never smoker second hand exposure: No alcohol intake: never substance use type: does not use caffeine: No lizbeth/christian: Jain seatbelt use: always do you feel safe at home: Yes Intake Vital Signs 03/06/25 11:12 05/08/25 09:46 05/29/25 11:06 Height 5 ft 8 in 5 ft 8 in 5 ft 8 in Weight: 83.546 kg BMI 28.0 BP 152/85 H Blood Pressure Location Lt brachial Position Sitting Respiration 18 Pulse 66 Pulse Source Monitor Temp 98.2 F Temperature Source Temporal Artery Pulse Oximetry (%) 97 Oxygen Delivery Method room air Intake Accompanied by: Self Is patient in pain?: No Allergies naproxen (From Naprosyn) Adverse Reaction (Severe, Verified 05/29/25 11:08) Hives Medications ?Medication ?Instructions ?Recorded ?Confirmed ?Type calcium 600 mg (as 1 cap PO BID 11/08/21 History carbonate)-vitamin D3 12.5 mcg (500 unit) capsule (Calcium with Vit D3) lidocaine-prilocaine 2.5 %-2.5 % 1 applic topical ONCE PRN port 08/19/24 05/29/25 Rx topical cream access 30 days #30 grams ondansetron 8 mg disintegrating 8 mg PO Q8H PRN nausea and 08/19/24 05/29/25 Rx tablet vomiting #30 tabs tamoxifen 20 mg tablet 20 mg PO QDAY #90 tabs 04/1405/29/25 Rx Have you fallen in the past year?: Yes Central Venous Access Central Venous Access: Yes Port/PICC: Port Exam Physical Exam Narrative ECOG 0 Walking with a crutch due to a sprained ankle Const alert, oriented x3 and no apparent distress General Appearance: cooperative and comfortable HEENT normocephalic Face and Sinus: normal facial exam Mouth: oral and palatal mucosa normal Eyes General Eye: normal appearance of both eyes Neck no lymphadenopathy and no JVD Resp clear to auscultation bilaterally Cardio regular rate and regular rhythm Jugular Venous Distention: Negative for JVD GI soft to palpation, non-tender and non-distended; Negative for hepatosplenomegaly Back/Spine no thoracic nor lumbar tenderness Extremity no clubbing, cyanosis or edema Extremity Narrative: +R foot brace. Skin no rashes or lesions noted Neuro oriented x3, CN's II-XII intact bilaterally and no focal motor deficits Coordination / Balance: eixjuf-za-lvkt test normal Speech: speech normal Gait (Neuro): normal gait Psych mental status grossly normal Coding Level of Care Code Off vis,est,level 4 Exam Problem Focused Diagnoses Malignant neoplasm of upper-inner quadrant of left breast in female, estrogen receptor positive C50.212; Z17.0 Breast location: upper inner quadrant of breast Estrogen receptor status: positive Patient sex: female Assessment and Plan Assessment and Plan (1) Breast cancer, left breast: Status: Chronic Qualifiers: Breast location: upper inner quadrant of breast Estrogen receptor status: positive Patient sex: female Qualified Code(s): C50.212 - Malignant neoplasm of upper-inner quadrant of left female breast; Z17.0 - Estrogen receptor positive status [ER+] Plan: On adjuvant Herceptin analogue, Due for C8. Feels well. Plan is to proceed with C8. Plan Details Follow Up: 3 Weeks Clinical Quality Measures Falls Risk Screening/Assistive Devices Have you fallen in the past year?: Yes 05/29/25 1133 D> Date _ [facility] Real [facility] Signature: Date (if applicable) CC: Dr. Kristina Mcginnis MD ~ [place] [id number] Progress note Author Darryl Real [facility] Note Date/Time May 29, 2025 11:3 3am [facility] [place] [address] OFFICE VISIT Date of Service: 05/29/25 1103 MR#: [id number] Acct: [id number] Name: REBA BECKFORD Rep #: [id number] : 1950 From: Darryl Real MD Age/Sex: 74/F Location: [facility] Status: Signed HPI Subjective Date of Service 05/29/25 Chief Complaint breast cancer on treatment History of Present Illness 74-year-old female with a strong family history of breast cancer (mother and 2 sisters) in addition to colon cancer (brother), leukemia and esophageal cancer (brother) who was compliant with annual screening mammography . She has a remote history of right breast biopsy negative for cancer and past history of colon polyps. May 24, 2021 screening mammography: An ovoid mass in the left breast new in comparison to 12/19/2019. June 03, 2021 ultrasonography, at 10:00 mass measuring 5 mm in maximum diameter. 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 July 08, 2021 left breast partial mastectomy with sentinel lymph node biopsy: MICROSCOPIC DIAGNOSISA. Left axillary sentinel lymph nodes, biopsy:Three out ofthree lymph nodes negative for metastatic carcinoma.B. Left breast mass, needlelocalization lumpectomy:Invasive ductal carcinoma.See cancer summary in the comment section.SJ:phuc 07/13/2021 COMMENTA. Immunohistochemistry ([id number]) supports the above diagnosis.B. BREAST CANCER SUMMARYProcedure ?lumpectomy withwire-guided localization Specimen laterality ?leftInvasive tumor:Tumor site ?upper inner quadrant as per EMRTumor size ?0.5 x 0.2 cm (measured microscopically)Histologic type ?invasive ductal carcinoma, not otherwise specifiedHistologic grade (Evelyn grade):Glandular/tubular differentiation score -3Nuclear pleomorphism score -3Mitotic count score - 2Overall grade ?grade 3(score of 8)Tumor focality ?single focus of invasive carcinomaDuctal carcinoma in situ ?not identified Tumor extension:Skin ?not presentNipple ?not applicableSkeletal muscle ?no skeletal muscle is presentMargins:Invasive carcinoma margin ?The invasive carcinoma is 0.5 cm away from closest inferior margin.Ductal carcinoma in situ margin ?not applicableRegional lymph nodes:Number of lymph nodes examined ?3Number of sentinel lymph nodes examined -3Number of lymph nodes with macrometastases, micrometastases or isolated tumor cells -0Treatment effect ?no known presurgical therapy.Lymphvascular invasion ?not identified Dermal lymphvascular invasion ?not applicableAdditional Pathologic Findings ?fibrocystic changes.Ancillary Studies: Previously performed at [facility] ([id number])ER: Positive (50%, moderate)KY: Positive (10%, moderate tostrong)Aev9yxq: Equivocal (2+)Pry4OBTA AMAIRANI ?negative (non-amplified)Microcalcifications ?not identifiedClinical History -Please make reference to previous specimen from [facility] ([id number]) left breast, ultrasound-guided core needle biopsy with diagnosis of ?invasive ductal carcinoma, grade 2-3.?PATHOLOGIC STAGE: pT1a pN0(sn) pMx CT chest August 02, 2021: Was obtained when an abnormality in the left lung was seen on planning radiation therapy for the breast. IMPRESSION: 6.9 cm x 6.7 cm x 6.7 cm solid mass in the peripheral lateral aspect of the left lower lobe abutting the pleural surface. Postoperative changes in the left axillary region. Hepatic cysts. August 17, 2021 Left lower lung mass, CT-guided core biopsy:Solitary fibrous tumor. October 08, 2021 resection of left lower lobe lung mass at [facility]. June 12, 2024 screening mammogram: Right breast BIRADS Category 4: Suspicious- June 19, 2024 Right breast, upper outer quadrant microcalcification, stereotactic core biopsy: Invasive ductal carcinoma. Focal ductal carcinoma in situ ANTIBODY / CLONE RESULT E-Cad (ECH-6) REPEAT CK8 ([id number]) positive Calponin-1 (VG032G) negative * CK5-6 (D5 & 1684) negative * P40 (BC28) negative * P53 (DO-7) negative (null pattern) Ki-67 (30-9) positive, low 21% MORPHOMETRIC ANALYSIS ER (clone 6F11) 29% , weak intensity KY (clone 16/1E2) 0% Her-2Neu (clone CB11) 3+ July 11, 2024 right partial mastectomy with sentinel lymph node biopsy: MICROSCOPIC DIAGNOSIS A. [place] lymph node, biopsy: One lymph node, negative for metastatic carcinoma. See comment. B. Additional right sentinel lymph node, biopsy: Two out of two lymph nodes, negative for metastatic carcinoma. See comment. C. 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 See cancer summary in the comment section. D. New lateral margin: Negative for carcinoma. Focal fibrocystic changes. See comment. E. New medial margin: Negative for carcinoma. BREAST CANCER SUMMARY Procedure ? Partial mastectomy Specimen laterality - Right Invasive tumor: Tumor site ? Upper outer quadrant Tumor size ? 0.5 x 0.4cm (measured microscopically). Histologic type ? Invasive ductal carcinoma Histologic grade (Evelyn grade): Glandular/tubular differentiation score - 3 Nuclear pleomorphism score - 3 Mitotic count score - 1 Overall grade - grade 2 (score of 7) Tumor focality ? single focus of invasive carcinoma Ductal carcinoma in situ - Present Positive for extensive intraductal component (EIC). Size (extent) of DCIS ?. DCIS comprises ~70% of total tumor volume. Estimated size of DCIS - 0.7 x 0.4 cm largest focus, measured microscopically Number of blocks with DCIS - 2 Number of blocks examined ? 17 (specimen B, C & D) Architectural pattern ? [place] and solid Nuclear grade - grade 3 (high) Necrosis - present, central (expansive comedo necrosis) Lobular carcinoma in situ ? Not identified Tumor extension: Skin ? Not present Nipple ? Not applicable Skeletal muscle ? Present, not involved by tumor (specimen D) Margins: Margins are free of invasive carcinoma and ductal carcinoma in situ. Invasive carcinoma is 1.0 cm from the closest superior margin. (biopsy cavity present at the medial margin, however, no tumor is noted at the margin) new medial margin is also negative for carcinoma. Ductal carcinoma in situ is 0.5 cm away from the closest posterior margin. Regional lymph nodes: Number of lymph nodes examined - 3 Number of sentinel lymph nodes examined - 3 Number of lymph nodes with macrometastases, micrometastases or isolated tumor cells - 0 Treatment effect - no known presurgical therapy. Lymphvascular invasion ? Not identified Dermal lymphvascular invasion ? Not applicable Additional Pathologic Findings ? Changes consistent previous biopsy site. Fibrocystic changes and lobular involution. Ancillary Studies: Previously performed on same tumor ([id number] / [id number]) ER: positive (29%, weak intensity) KY: negative (0) Bgl5fsx: positive (3+) Ki67: low, 21% Microcalcifications ? Present in non-neoplastic tissue and invasive carcinoma Clinical History ? please make reference to previous specimen [id number], right breast, stereotactic core biopsy with diagnosis of invasive ductal carcinoma and ductal carcinoma in situ. PATHOLOGIC STAGE: pT1a pN0(sn) pMx August 06, 2024 PET/CT: IMPRESSION: 1. Increase in radiopharmaceutical concentration superficially apparent in the right anterior chest wall-breast likely represents postoperative change. If neoplasm remains a diagnostic consideration, correlation with suspected pathologic sampling is recommended. 2. No other scintigraphic abnormalities are identified, there is no definitive scintigraphic evidence of distant metastatic disease. Treatment summary and response: * Left breast partial mastectomy with sentinel lymph node: July 08, 2021. Adjuvant hormonal therapy with aromatase inhibitor September 2021-May 2024 Adjuvant radiation therapy: 08/30/2021 ? 09/21/2021: received 4256 cGy of in 16 fractions to the left breast * Right breast July 11, 2024 right partial mastectomy with sentinel lymph node biopsy. August 29, 2024-November 2024 adjuvant Herceptin with weekly Taxol (12 doses) Adjuvant radiation to the right breast 01/06/2025- 01/27/2025 January 02, 2025 maintenance Herceptin Adjuvant hormonal therapy with tamoxifen January 2025- Interval History Comes for follow up/adjuvant Herceptin analogue [facility] Medical History Encounter for monoclonal antibody treatment for malignancy HER2-positive carcinoma of breast Hypokalemia Lymphedema of right upper extremity Acid reflux Drug induced neutropenia Encounter for chemotherapy management Encounter for education Post-menopausal Back pain Injury of back History of stress test History of irregular heartbeat COVID ER+ (estrogen receptor positive status) Wears glasses Cancer Easy bruising Lightheadedness Heartburn Non-smoker History of colonic polyps Breast cancer, left breast (~05/2021) Multinodular non-toxic goiter Surgical History Hx of partial mastectomy S/P lumpectomy, right breast History of lung surgery History of lumpectomy of left breast (~06/2021) Hx of tubal ligation History of colonoscopy (~03/2017) History of left breast biopsy (~05/2021) History of right breast biopsy (~1980) Family History Brother Colon cancer Hypertension Cancer Leukemia Mother Breast cancer Sister Breast cancer Lymphoma Hypertension Aunt Breast cancer Social History household members: spouse Smoking Status: Never smoker second hand exposure: No alcohol intake: never substance use type: does not use caffeine: No lizbeth/christian: Jain seatbelt use: always do you feel safe at home: Yes Intake Vital Signs 03/06/25 11:12 05/08/25 09:46 05/29/25 11:06 Height 5 ft 8 in 5 ft 8 in 5 ft 8 in Weight: 83.546 kg BMI 28.0 BP 152/85 H Blood Pressure Location Lt brachial Position Sitting Respiration 18 Pulse 66 Pulse Source Monitor Temp 98.2 F Temperature Source Temporal Artery Pulse Oximetry (%) 97 Oxygen Delivery Method room air Intake Accompanied by: Self Is patient in pain?: No Allergies naproxen (From Naprosyn) Adverse Reaction (Severe, Verified 05/29/25 11:08) Hives Medications ?Medication ?Instructions ?Recorded ?Confirmed ?Type calcium 600 mg (as 1 cap PO BID 11/08/21 History carbonate)-vitamin D3 12.5 mcg (500 unit) capsule (Calcium with Vit D3) lidocaine-prilocaine 2.5 %-2.5 % 1 applic topical ONCE PRN port 08/19/24 05/29/25 Rx topical cream access 30 days #30 grams ondansetron 8 mg disintegrating 8 mg PO Q8H PRN nausea and 08/19/24 05/29/25 Rx tablet vomiting #30 tabs tamoxifen 20 mg tablet 20 mg PO QDAY #90 tabs 04/1405/29/25 Rx Have you fallen in the past year?: Yes Central Venous Access Central Venous Access: Yes Port/PICC: Port Exam Physical Exam Narrative ECOG 0 Walking with a crutch due to a sprained ankle Const alert, oriented x3 and no apparent distress General Appearance: cooperative and comfortable HEENT normocephalic Face and Sinus: normal facial exam Mouth: oral and palatal mucosa normal Eyes General Eye: normal appearance of both eyes Neck no lymphadenopathy and no JVD Resp clear to auscultation bilaterally Cardio regular rate and regular rhythm Jugular Venous Distention: Negative for JVD GI soft to palpation, non-tender and non-distended; Negative for hepatosplenomegaly Back/Spine no thoracic nor lumbar tenderness Extremity no clubbing, cyanosis or edema Extremity Narrative: +R foot brace. Skin no rashes or lesions noted Neuro oriented x3, CN's II-XII intact bilaterally and no focal motor deficits Coordination / Balance: wpdtdo-oa-jmgx test normal Speech: speech normal Gait (Neuro): normal gait Psych mental status grossly normal Coding Level of Care Code Off vis,est,level 4 Exam Problem Focused Diagnoses Malignant neoplasm of upper-inner quadrant of left breast in female, estrogen receptor positive C50.212; Z17.0 Breast location: upper inner quadrant of breast Estrogen receptor status: positive Patient sex: female Assessment and Plan Assessment and Plan (1) Breast cancer, left breast: Status: Chronic Qualifiers: Breast location: upper inner quadrant of breast Estrogen receptor status: positive Patient sex: female Qualified Code(s): C50.212 - Malignant neoplasm of upper- inner quadrant of left female breast; Z17.0 - Estrogen receptor positive status [ER+] Plan: On adjuvant Herceptin analogue, Due for C8. Feels well. Plan is to proceed with C8. Plan Details Follow Up: 3 Weeks Clinical Quality Measures Falls Risk Screening/Assistive Devices Have you fallen in the past year?: Yes 05/29/25 1133 <Electronically signed by Darryl Carroll> Date _ Darryl Real MD Cosigner Signature: Date (if applicable) CC: Dr. Kristina Mcginnis MD ~ [facility] Work Phone: 1(274) 517-576907-18-2025 History of Present illness Narrative* Romulo Hernandez MD - 05/16/2025 11:40 AM EDT Subjective Patient ID: Reba Beckford is a 74 y.o. female who presents for Eye Pain (Right eye tender and puffy- has dry eye normally). HPI Basically 1 day of a little puffiness of the right upper eyelid. No discharge photophobia or redness of the eye. No significant allergies in the summer. On exam no obvious signs of conjunctivitis or allergic conjunctivitis. She has a little bit of swelling of the right upper eyelid with most of the swelling isolated to the outer part of that lid. Possible early stye. She is just going to continue with the mild soap wash of the eye and warm compress. She is going to vacation at the end of next week, but only for short amount of time. She will call if she feels that the eye is getting significantly worse. Review of Systems Eyes: Positive for itching. Negative for photophobia, pain, discharge, redness and visual disturbance. Objective BP 138/78 Pulse 75 Ht 1.727 m (5' 8) Wt 82.9 kg (182 lb 12.8 oz) SpO2 95% BMI 27.79 kg/m Physical Exam Constitutional: Appearance: Normal appearance. HENT: Head: Normocephalic and atraumatic. Eyes: General: Right eye: No discharge. Left eye: No discharge. Extraocular Movements: Extraocular movements intact. Pupils: Pupils are equal, round, and reactive to light. Skin: General: Skin is warm and dry. Neurological: General: No focal deficit present. Mental Status: She is alert and oriented to person, place, and time. Psychiatric: Mood and Affect: Mood normal. Behavior: Behavior normal. Thought Content: Thought content normal. Judgment: Judgment normal. Assessment/Plan Problem List Items Addressed This Visit None Visit Diagnoses Codes Swelling of right upper eyelid - Primary H02.841 documented in this [facility] Work Phone: 1(383) 335-941807-10-2025 Evaluation note* Diagnosis Onset Date Resolution Status Admit Date Breast cancer, left breast 2020 chronic May 08, 2025 8:23am Breast cancer, left breast 2020 chronic May 29, 2025 10:31am Breast cancer, left breast 2020 chronic June 19, 2025 9:19am DVT (deep venous thrombosis) chronic June 19 9:19am Breast cancer, right acute Sept emb2024 9:40am Breast cancer, left breast 2020 chronic July 07, 2025 9:40am Breast cancer, left breast 2020 chronic July 10, 2025 10:40am DVT (deep venous thrombosis) chronic July 10, 2025 10:40am Pulmonary embolism inactive Septem 2024 10:40am Breast cancer, left breast 2020 chronic July 31, 2025 10:24am DVT (deep venous thrombosis) chronic July 31 10:24am Pulmonary embolism inactive Octobe r 2024 10:24am Breast cancer, left breast 2020 chronic August 21, 2025 10:39am DVT (deep venous thrombosis) chronic August 21 10:39am Malignant neoplasm of upper-outer quadrant of right breast in female, estro chronic August 21 10:39am Pulmonary embolism inactive Octobe r 2024 10:39am [facility] Work Phone: 1(496) 581-886107-10-2025 Progress [facility] [address] [place] [address] OFFICE VISIT Date of Service: 05/08/25 0942 MR#: [id number] Acct: [id number] Name: REBA BECKFORD Rep #: [id number] : 1950 From: Arturo sanchez MD Age/Sex: 74/F Location: [facility] Status: Signed HPI Subjective Date of Service 05/08/25 Chief Complaint breast cancer on treatment History of Present Illness 74-year-old female with a strong family history of breast cancer (mother and 2 sisters) in additionto colon cancer (brother), leukemia and esophageal cancer (brother) who was compliant with annual screening mammography . She has a remote history of right breast biopsy negative for cancer and past history of colon polyps. May 24, 2021 screening mammography: An ovoid mass in the left breast new in comparison to 12/19/2019. June 03, 2021 ultrasonography, at 10:00 mass measuring 5 mm in maximum diameter. 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 July 08, 2021 left breast partial mastectomy with sentinel lymph node biopsy: MICROSCOPIC DIAGNOSISA. Left axillary sentinel lymph nodes, biopsy:Three out ofthree lymph nodes negative for metastatic carcinoma.B. Left breast mass, needlelocalization lumpectomy:Invasive ductal carcinoma.See cancer summary in the comment section.SJ:phuc 07/13/2021 COMMENTA. Immunohistochemistry ([id number]) supports the above diagnosis.B. BREAST CANCER SUMMARYProcedure ?lumpectomy withwire-guided localization Specimen laterality ?leftInvasive tumor:Tumor site ?upper inner quadrant as per EMRTumor size ?0.5 x 0.2 cm (measured microscopically)Histologic type ?invasive ductal carcinoma, not otherwise specifiedHistologic grade ([place] grade):Glandular/tubular differentiation score -3Nuclear pleomorphism score -3Mitotic count score -2Overall grade ?grade 3(score of 8)Tumor focality ?single focus of invasive carcinomaDuctal carcinoma in situ ?not identified Tumor extension:Skin ?not presentNipple ?not applicableSkeletal muscle ?no skeletal muscle is presentMargins:Invasive carcinoma margin ?The invasive carcinoma is 0.5 cm away from closest inferior margin.Ductal carcinoma in situ margin ?not applicableRegional lymph nodes:Number of lymph nodes examined ?3Number of sentinel lymph nodes examined -3Number of lymph nodes with macrometastases, micrometastases or isolated tumor cells -0Treatment effect ?no known presurgical therapy.Lymphvascular invasion ?not identified Dermal lymphvascular invasion ?not applicableAdditional Pathologic Findings ?fibro cystic changes.Ancillary Studies: Previously performed at [facility] ([id number])ER: Positive (50%, moderate)KY: Positive (10%, moderate tostrong)Oxe8cfv: Equivocal (2+)Nvt7ZHYZ AMAIRANI ?negative(non- amplified)Microcalcifications ?not identifiedClinical History -Please make reference to previous specimen from [facility] ([id number]) left breast, ultrasound-guided core needle biopsy with diagnosis of ?invasive ductal carcinoma, grade 2-3.?PATHOLOGIC STAGE: pT1a pN0(sn) pMx CT chest August 02, 2021: Was obtained when an abnormality in the left lung was seen on planning radiation therapy for the breast. IMPRESSION: 6.9 cm x 6.7 cm x 6.7 cm solid mass in the peripheral lateral aspect of the left lower lobe abutting the pleural surface. Postoperative changes in the left axillary region. Hepatic cysts. August 17, 2021 Left lower lung mass, CT-guided core biopsy:Solitary fibrous tumor. October 08, 2021 resection of left lower lobe lung mass at [facility]. June 12, 2024 screening mammogram: Right breast BIRADS Category 4: Suspicious- June 19, 2024 Right breast, upper outer quadrant microcalcification, stereotactic core biopsy: Invasive ductal carcinoma. Focal ductal carcinoma in situ ANTIBODY / CLONE RESULT E-Cad (ECH-6) REPEAT CK8 ([id number]) positive Calponin-1 (DK700Y) negative * CK5-6 (D5 & 1684) negative * P40 (BC28) negative * P53 (DO-7) negative (null pattern) Ki-67 (30-9) positive, low 21% MORPHOMETRIC ANALYSIS ER (clone 6F11) 29% , weak intensity KY (clone 16/1E2) 0% Her-2Neu (clone CB11) 3+ July 11, 2024 right partial mastectomy with sentinel lymph node biopsy: MICROSCOPIC DIAGNOSIS A. [place] lymph node, biopsy: One lymph node, negative for metastatic carcinoma. See comment. B. Additional right sentinel lymph node, biopsy: Two out of two lymph nodes, negative for metastatic carcinoma. See comment. C. 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 See cancer summary in the comment section. D. New lateral margin: Negative for carcinoma. Focal fibrocystic changes. See comment. E. New medial margin: Negative for carcinoma. BREAST CANCER SUMMARY Procedure ? Partial mastectomy Specimen laterality - Right Invasive tumor: Tumor site ? Upper outer quadrant Tumor size ? 0.5 x 0.4cm (measured microscopically). Histologic type ? Invasive ductal carcinoma Histologic grade ([place] grade): Glandular/tubular differentiation score - 3 Nuclear pleomorphism score - 3 Mitotic count score - 1 Overall grade - grade 2 (score of 7) Tumor focality ? single focus of invasive carcinoma Ductal carcinoma in situ - Present Positive for extensive intraductal component (EIC). Size (extent) of DCIS ?. DCIS comprises ~70% of total tumor volume. Estimated size of DCIS - 0.7 x 0.4 cm largest focus, measured microscopically Number of blocks with DCIS - 2 Number of blocks examined ? 17 (specimen B, C & D) Architectural pattern ? [place] and solid Nuclear grade - grade 3 (high) Necrosis - present, central (expansive comedo necrosis) Lobular carcinoma in situ ? Not identified Tumor extension: Skin ? Not present Nipple ? Not applicable Skeletal muscle ? Present, not involved by tumor (specimen D) Margins: Margins are free of invasive carcinoma and ductal carcinoma in situ. Invasive carcinoma is 1.0 cm from the closest superior margin. (biopsy cavity present at the medial margin, however, no tumor is noted at the margin) new medial margin is also negative for carcinoma. Ductal carcinoma in situ is 0.5 cm away from the closest posterior margin. Regional lymph nodes: Number of lymph nodes examined - 3 Number of sentinel lymph nodes examined - 3 Number of lymph nodes with macrometastases, micrometastases or isolated tumor cells - 0 Treatment effect - no known presurgical therapy. Lymphvascular invasion ? Not identified Dermal lymphvascular invasion ? Not applicable Additional Pathologic Findings ? Changes consistent previous biopsy site. Fibrocystic changes and lobular involution. Ancillary Studies: Previously performed on same tumor ([id number] / [id number]) ER: positive (29%, weak intensity) KY: negative (0) Xzy4ejb: positive (3+) Ki67: low, 21% Microcalcifications ? Present in non-neoplastic tissue and invasive carcinoma Clinical History ? please make reference to previous specimen [id number], right breast, stereotactic core biopsy with diagnosis of invasive ductal carcinoma and ductal carcinoma in situ. PATHOLOGIC STAGE: pT1a pN0(sn) pMx August 06, 2024 PET/CT: IMPRESSION: 1. Increase in radiopharmaceutical concentration superficially apparent in the right anterior chest wall-breast likely represents postoperative change. If neoplasm remains a diagnostic consideration, correlation with suspected pathologic sampling is recommended. 2. No other scintigraphic abnormalities are identified, there is no definitive scintigraphic evidence of distant metastatic disease. Treatment summary and response: * Left breast partial mastectomy with sentinel lymph node: July 08, 2021. Adjuvant hormonal therapy with aromatase inhibitor September 2021-May 2024 Adjuvant radiation therapy: 08/30/2021 ? 09/21/2021: received 4256 cGy of in 16 fractions to the left breast * Right breast July 11, 2024 right partial mastectomy with sentinel lymph node biopsy. August 29, 2024-November 2024 adjuvant Herceptin with weekly Taxol (12 doses) Adjuvant radiation to the right breast 01/06/2025- 01/27/2025 January 02, 2025 maintenance Herceptin Adjuvant hormonal therapy with tamoxifen January 2025- Interval History Ankle sprain April 2025 [facility] Medical History Encounter for monoclonal antibody treatment for malignancy HER2-positive carcinoma of breast Hypokalemia Lymphedema of right upper extremity Acid reflux Drug induced neutropenia Encounter for chemotherapy management Encounter for education Post-menopausal Back pain Injury of back History of stress test History of irregular heartbeat COVID ER+ (estrogen receptor positive status) Wears glasses Cancer Easy bruising Lightheadedness Heartburn Non-smoker History of colonic polyps Breast cancer, left breast (~05/2021) Multinodular non-toxic goiter Surgical History Hx of partial mastectomy S/P lumpectomy, right breast History of lung surgery History of lumpectomy of left breast (~06/2021) Hx of tubal ligation History of colonoscopy (~03/2017) History of left breast biopsy (~05/2021) History of right breast biopsy (~1980) Family History Brother Colon cancer Hypertension Cancer Leukemia Mother Breast cancer Sister Breast cancer Lymphoma Hypertension Aunt Breast cancer Social History household members: spouse Smoking Status: Never smoker second hand exposure: No alcohol intake: never substance use type: does not use caffeine: No lizbeth/christian: Jain seatbelt use: always do you feel safe at home: Yes ROS Constitutional Constitutional: Reports systems reviewed and no addt'l complaints, except as documented; Denies fever(s) or weight loss Eyes Eyes: Reports systems reviewed and no addt'l complaints, except as documented ENT HEENT: Reports systems reviewed and no addt'l complaints, except as documented; Denies mouth lesions Cardiovascular Cardiovascular: Reports systems reviewed and no addt'l complaints, except as documented, palpitations and other Details: Occasional palpitations ; Denies chest pain with activity or edema Respiratory/Chest Respiratory/Chest: Reports systems reviewed and no addt'l complaints, except as documented; Denies cough or dyspnea on exertion Gastrointestinal Gastrointestinal: Reports systems reviewed and no addt'l complaints, except as documented; Denies abdominal pain or change in bowel habits Genitourinary Genitourinary: Reports systems reviewed and no addt'l complaints, except as documented Musculoskeletal Musculoskeletal: Reports systems reviewed and no addt'l complaints, except as documented; Denies back pain Integumentary Integumentary: Reports systems reviewed and no addt'l complaints, except as documented; Denies new lesions Neurologic Neurologic: Reports systems reviewed and no addt'l complaints, except as documented; Denies focal weakness Psychiatric Psychiatric: Reports systems reviewed and no addt'l complaints, except as documented Endocrine Endocrinology: Reports systems reviewed and no addt'l complaints, except as documented and flushing Hematologic/Lymphatic Hematologic/Lymphatic: Reports systems reviewed and no addt'l complaints, exceptas documented Allergic/Immunologic Allergic/Immunologic: Reports systems reviewed and no addt'l complaints, except as documented Intake Vital Signs 03/06/25 11:12 04/17/25 10:54 05/08/25 09:44 05/08/25 09:46 Height 5 ft 8 in 5 ft 8 in 5 ft 8 in 5 ft 8 in Weight: 83.915 kg 83.971 kg BMI 28.1 28.1 BP 156/88 H 172/82 H Blood Pressure Location Lt brachial Lt brachial Position Sitting Sitting Respiration 16 16 Pulse 63 63 Pulse Source Monitor Monitor Temp 97.2 F L 97.5 F L Temperature Source Temporal Artery Temporal Artery Pulse Oximetry (%) 96 95 Oxygen Delivery Method room air room air Intake Is patient in pain?: Yes (right ankle pain from sprain ) Pain scale (1-10): 3 Allergies naproxen (From Naprosyn) Adverse Reaction (Severe, Verified 05/08/25 09:46) Hives Medications 3 ?Medication ?Instructions ?Recorded ?Confirmed ?Type calcium 600 mg (as 1 cap PO BID 11/08/21 History carbonate)-vitamin D3 12.5 mcg (500 unit) capsule (Calcium with Vit D3) lidocaine-prilocaine 2.5 %-2.5 % 1 applic topical ONCE PRN port 08/19/24 05/08/25 Rx topical cream access 30 days #30 grams ondansetron 8 mg disintegrating 8 mg PO Q8H PRN nausea and 08/19/24 05/08/25 Rx tablet vomiting #30 tabs tamoxifen 20 mg tablet 20 mg PO QDAY #90 tabs 04/1405/08/25 Rx Have you fallen in the past year?: Yes Central Venous Access Central Venous Access: Yes Port/PICC: Port CBC, CMP May 08, 2025 reviewed in EMR Exam Physical Exam Narrative ECOG 0-1 Walking with a crutch due to a sprained ankle Const alert, oriented x3 and no apparent distress General Appearance: cooperative and comfortable HEENT normocephalic Face and Sinus: normal facial exam Mouth: oral and palatal mucosa normal Eyes General Eye: normal appearance of both eyes Neck no lymphadenopathy and no JVD Resp clear to auscultation bilaterally Cardio regular rate and regular rhythm Jugular Venous Distention: Negative for JVD GI soft to palpation, non-tender and non-distended; Negative for hepatosplenomegaly Back/Spine no thoracic nor lumbar tenderness Extremity no clubbing, cyanosis or edema Skin no rashes or lesions noted Neuro oriented x3, CN's II-XII intact bilaterally and no focal motor deficits Coordination / Balance: agwnpt-fj-wssw test normal Speech: speech normal Gait (Neuro): normal gait Psych mental status grossly normal Coding Level of Care Code Off vis,est,level 4 Exam Problem Focused Diagnoses 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 Carcinoma is ER positive (50%, moderate) KY positive (10%, moderate to strong) HER-2 equivocal 2+ by IHC, negative by FISH. Cancer was detected on screening mammography measuring 5 mm in maximum diameter . Patient is status post left partial mastectomy with sentinel lymph node biopsy June 2021, received adjuvant radiation August 2021. Started adjuvant hormonal therapy with an aromatase inhibitor September 2021. 2. Right breast cancer: 2023 invasive ductal cancer; stage I (T1a, N0, M0). Cancer is ER positive (29%, weak) KY negative (0) HER2/asif overexpressed 3+ and Ki-67 low at 21%. Cancer was detected on screening mammography. Patient is status post right partial mastectomy with sentinel lymph node biopsy June 2024 while still on adjuvant hormonal therapy with Arimidex. PET/CT July 2024 showed no evidence of distant metastases. Started adjuvant systemic chemo immune therapy with weekly Taxol Herceptin August 29, 2024. She received cycle 1 (the first 3 weeks) then has been delayed twice now due to neutropenia. Patient has a family history of breast cancer (2 sisters and mother). Genetic testing was done at [facility] January 2022, no deleterious genetic mutation was identified. 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 Plan: Based on NCCN guidelines and up-to-date review of treatment of breast cancer. 1-concluded 12 weeks of paclitaxel with Herceptin and is to conclude total 12 months of immunotherapy with trastuzumab. 2-Adjuvant hormonal treatment with tamoxifen started January 2025 , since right breast cancer evolvedwhile on Arimidex and keeping in mind that the patient's ER expression is rather weak but not negative. 3-patient will have serial evaluation of cardiac ejection fraction by echo every 3 months. Her lastejection fraction was normal at 55% March,. She is also followed in cardio oncology clinic including for her reported palpitations Patient was seen , impression and plan discussed. Arturo Olivas MD Pattern Chart Writer, [facility] Divisions of Medical Oncology & Hematology Department of Internal Medicine [place] [id number] This note was generated using a voice recognition system software. Although it was reviewed by the author prior to finalization, it may still contain incorrect words, spelling, and punctuation that were not noted when reviewing prior to saving. If a clinically significant typo or inaccurately typedphrase is noted, please notify the author. Clinical Quality Measures Falls Risk Screening/Assistive Devices Have you fallen in the past year?: Yes 05/08/25 1000 denzel CHRISTIANSEN> Date _ Arturo Olivas MD Cosigner Signature: Date (if applicable) CC: ~ [facility]07-10-2025 Progress note Author Arturo Olivas [facility] Note Date/Time May 08, 2025 10:[address] [facility] [place] [address] OFFICE VISIT Date of Service: 05/08/25 0942 MR#: [id number] Acct: [id number] Name: ANALYREBA DE LA TORRE Rep #: [id number] : 1950 From: Arturo sanchez MD Age/Sex: 74/F Location[place] [facility] Status: Signed HPI Subjective Date of Service 05/08/25 Chief Complaint breast cancer on treatment History of Present Illness 74-year-old female with a strong family history of breast cancer (mother and 2 sisters) in addition to colon cancer (brother), leukemia and esophageal cancer (brother) who was compliant with annual screening mammography . She has a remote history of right breast biopsy negative for cancer and past history of colon polyps. May 24, 2021 screening mammography: An ovoid mass in the left breast new in comparison to 12/19/2019. June 03, 2021 ultrasonography, at 10:00 mass measuring 5 mm in maximum diameter. 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 July 08, 2021 left breast partial mastectomy with sentinel lymph node biopsy: MICROSCOPIC DIAGNOSISA. Left axillary sentinel lymph nodes, biopsy:Three out ofthree lymph nodes negative for metastatic carcinoma.B. Left breast mass, needlelocalization lumpectomy:Invasive ductal carcinoma.See cancer summary in the comment section.SJ:phuc 07/13/2021 COMMENTA. Immunohistochemistry ([id number]) supports the above diagnosis.B. BREAST CANCER SUMMARYProcedure ?lumpectomy withwire-guided localization Specimen laterality ?leftInvasive tumor:Tumor site ?upper inner quadrant as per EMRTumor size ?0.5 x 0.2 cm (measured microscopically)Histologic type ?invasive ductal carcinoma, not otherwise specifiedHistologic grade ([place] grade):Glandular/tubular differentiation score -3Nuclear pleomorphism score -3Mitotic count score - 2Overall grade ?grade 3(score of 8)Tumor focality ?single focus of invasive carcinomaDuctal carcinoma in situ ?not identified Tumor extension:Skin ?not presentNipple ?not applicableSkeletal muscle ?no skeletal muscle is presentMargins:Invasive carcinoma margin ?The invasive carcinoma is 0.5 cm away from closest inferior margin.Ductal carcinoma in situ margin ?not applicableRegional lymph nodes:Number of lymph nodes examined ?3Number of sentinel lymph nodes examined -3Number of lymph nodes with macrometastases, micrometastases or isolated tumor cells -0Treatment effect ?no known presurgical therapy.Lymphvascular invasion ?not identified Dermal lymphvascular invasion ?not applicableAdditional Pathologic Findings ?fibrocystic changes.Ancillary Studies: Previously performed at [facility] ([id number])ER: Positive (50%, moderate)KY: Positive (10%, moderate tostrong)Dkw5iyu: Equivocal (2+)Kaa8LSPR AMAIRANI ?negative (non-amplified)Microcalcifications ?not identifiedClinical History -Please make reference to previous specimen from [facility] ([id number]) left breast, ultrasound-guided core needle biopsy with diagnosis of ?invasive ductal carcinoma, grade 2-3.?PATHOLOGIC STAGE: pT1a pN0(sn) pMx CT chest August 02, 2021: Was obtained when an abnormality in the left lung was seen on planning radiation therapy for the breast. IMPRESSION: 6.9 cm x 6.7 cm x 6.7 cm solid mass in the peripheral lateral aspect of the left lower lobe abutting the pleural surface. Postoperative changes in the left axillary region. Hepatic cysts. August 17, 2021 Left lower lung mass, CT-guided core biopsy:Solitary fibrous tumor. October 08, 2021 resection of left lower lobe lung mass at [facility]. June 12, 2024 screening mammogram: Right breast BIRADS Category 4: Suspicious- June 19, 2024 Right breast, upper outer quadrant microcalcification, stereotactic core biopsy: Invasive ductal carcinoma. Focal ductal carcinoma in situ ANTIBODY / CLONE RESULT E-Cad (ECH-6) REPEAT CK8 ([id number]) positive Calponin-1 (FM074Z) negative * CK5-6 (D5 & 1684) negative * P40 (BC28) negative * P53 (DO-7) negative (null pattern) Ki-67 (30-9) positive, low 21% MORPHOMETRIC ANALYSIS ER (clone 6F11) 29% , weak intensity KY (clone 16/1E2) 0% Her-2Neu (clone CB11) 3+ July 11, 2024 right partial mastectomy with sentinel lymph node biopsy: MICROSCOPIC DIAGNOSIS A. [place] lymph node, biopsy: One lymph node, negative for metastatic carcinoma. See comment. B. Additional right sentinel lymph node, biopsy: Two out of two lymph nodes, negative for metastatic carcinoma. See comment. C. 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 See cancer summary in the comment section. D. New lateral margin: Negative for carcinoma. Focal fibrocystic changes. See comment. E. New medial margin: Negative for carcinoma. BREAST CANCER SUMMARY Procedure ? Partial mastectomy Specimen laterality - Right Invasive tumor: Tumor site ? Upper outer quadrant Tumor size ? 0.5 x 0.4cm (measured microscopically). Histologic type ? Invasive ductal carcinoma Histologic grade ([place] grade): Glandular/tubular differentiation score - 3 Nuclear pleomorphism score - 3 Mitotic count score - 1 Overall grade - grade 2 (score of 7) Tumor focality ? single focus of invasive carcinoma Ductal carcinoma in situ - Present Positive for extensive intraductal component (EIC). Size (extent) of DCIS ?. DCIS comprises ~70% of total tumor volume. Estimated size of DCIS - 0.7 x 0.4 cm largest focus, measured microscopically Number of blocks with DCIS - 2 Number of blocks examined ? 17 (specimen B, C & D) Architectural pattern ? [place] and solid Nuclear grade - grade 3 (high) Necrosis - present, central (expansive comedo necrosis) Lobular carcinoma in situ ? Not identified Tumor extension: Skin ? Not present Nipple ? Not applicable Skeletal muscle ? Present, not involved by tumor (specimen D) Margins: Margins are free of invasive carcinoma and ductal carcinoma in situ. Invasive carcinoma is 1.0 cm from the closest superior margin. (biopsy cavity present at the medial margin, however, no tumor is noted at the margin) new medial margin is also negative for carcinoma. Ductal carcinoma in situ is 0.5 cm away from the closest posterior margin. Regional lymph nodes: Number of lymph nodes examined - 3 Number of sentinel lymph nodes examined - 3 Number of lymph nodes with macrometastases, micrometastases or isolated tumor cells - 0 Treatment effect - no known presurgical therapy. Lymphvascular invasion ? Not identified Dermal lymphvascular invasion ? Not applicable Additional Pathologic Findings ? Changes consistent previous biopsy site. Fibrocystic changes and lobular involution. Ancillary Studies: Previously performed on same tumor ([id number] / [id number]) ER: positive (29%, weak intensity) KY: negative (0) Eza4dgr: positive (3+) Ki67: low, 21% Microcalcifications ? Present in non-neoplastic tissue and invasive carcinoma Clinical History ? please make reference to previous specimen [id number], right breast, stereotactic core biopsy with diagnosis of invasive ductal carcinoma and ductal carcinoma in situ. PATHOLOGIC STAGE: pT1a pN0(sn) pMx August 06, 2024 PET/CT: IMPRESSION: 1. Increase in radiopharmaceutical concentration superficially apparent in the right anterior chest wall-breast likely represents postoperative change. If neoplasm remains a diagnostic consideration, correlation with suspected pathologic sampling is recommended. 2. No other scintigraphic abnormalities are identified, there is no definitive scintigraphic evidence of distant metastatic disease. Treatment summary and response: * Left breast partial mastectomy with sentinel lymph node: July 08, 2021. Adjuvant hormonal therapy with aromatase inhibitor September 2021-May 2024 Adjuvant radiation therapy: 08/30/2021 ? 09/21/2021: received 4256 cGy of in 16 fractions to the left breast * Right breast July 11, 2024 right partial mastectomy with sentinel lymph node biopsy. August 29, 2024-November 2024 adjuvant Herceptin with weekly Taxol (12 doses) Adjuvant radiation to the right breast 01/06/2025- 01/27/2025 January 02, 2025 maintenance Herceptin Adjuvant hormonal therapy with tamoxifen January 2025- Interval History Ankle sprain April 2025 [facility] Medical History Encounter for monoclonal antibody treatment for malignancy HER2-positive carcinoma of breast Hypokalemia Lymphedema of right upper extremity Acid reflux Drug induced neutropenia Encounter for chemotherapy management Encounter for education Post-menopausal Back pain Injury of back History of stress test History of irregular heartbeat COVID ER+ (estrogen receptor positive status) Wears glasses Cancer Easy bruising Lightheadedness Heartburn Non-smoker History of colonic polyps Breast cancer, left breast (~05/2021) Multinodular non-toxic goiter Surgical History Hx of partial mastectomy S/P lumpectomy, right breast History of lung surgery History of lumpectomy of left breast (~06/2021) Hx of tubal ligation History of colonoscopy (~03/2017) History of left breast biopsy (~05/2021) History of right breast biopsy (~1980) Family History Brother Colon cancer Hypertension Cancer Leukemia Mother Breast cancer Sister Breast cancer Lymphoma Hypertension Aunt Breast cancer Social History household members: spouse Smoking Status: Never smoker second hand exposure: No alcohol intake: never substance use type: does not use caffeine: No lizbeth/christian: Jain seatbelt use: always do you feel safe at home: Yes ROS Constitutional Constitutional: Reports systems reviewed and no addt'l complaints, except as documented; Denies fever(s) or weight loss Eyes Eyes: Reports systems reviewed and no addt'l complaints, except as documented ENT HEENT: Reports systems reviewed and no addt'l complaints, except as documented; Denies mouth lesions Cardiovascular Cardiovascular: Reports systems reviewed and no addt'l complaints, except as documented, palpitations and other Details: Occasional palpitations ; Denies chest pain with activity or edema Respiratory/Chest Respiratory/Chest: Reports systems reviewed and no addt'l complaints, except as documented; Denies cough or dyspnea on exertion Gastrointestinal Gastrointestinal: Reports systems reviewed and no addt'l complaints, except as documented; Denies abdominal pain or change in bowel habits Genitourinary Genitourinary: Reports systems reviewed and no addt'l complaints, except as documented Musculoskeletal Musculoskeletal: Reports systems reviewed and no addt'l complaints, except as documented; Denies back pain Integumentary Integumentary: Reports systems reviewed and no addt'l complaints, except as documented; Denies new lesions Neurologic Neurologic: Reports systems reviewed and no addt'l complaints, except as documented; Denies focal weakness Psychiatric Psychiatric: Reports systems reviewed and no addt'l complaints, except as documented Endocrine Endocrinology: Reports systems reviewed and no addt'l complaints, except as documented and flushing Hematologic/Lymphatic Hematologic/Lymphatic: Reports systems reviewed and no addt'l complaints, exceptas documented Allergic/Immunologic Allergic/Immunologic: Reports systems reviewed and no addt'l complaints, except as documented Intake Vital Signs 03/06/25 11:12 04/17/25 10:54 05/08/25 09:44 05/08/25 09:46 Height 5 ft 8 in 5 ft 8 in 5 ft 8 in 5 ft 8 in Weight: 83.915 kg 83.971 kg BMI 28.1 28.1 BP 156/88 H 172/82 H Blood Pressure Location Lt brachial Lt brachial Position Sitting Sitting Respiration 16 16 Pulse 63 63 Pulse Source Monitor Monitor Temp 97.2 F L 97.5 F L Temperature Source Temporal Artery Temporal Artery Pulse Oximetry (%) 96 95 Oxygen Delivery Method room air room air Intake Is patient in pain?: Yes (right ankle pain from sprain ) Pain scale (1-10): 3 Allergies naproxen (From Naprosyn) Adverse Reaction (Severe, Verified 05/08/25 09:46) Hives Medications 3 ?Medication ?Instructions ?Recorded ?Confirmed ?Type calcium 600 mg (as 1 cap PO BID 11/08/21 History carbonate)-vitamin D3 12.5 mcg (500 unit) capsule (Calcium with Vit D3) lidocaine-prilocaine 2.5 %-2.5 % 1 applic topical ONCE PRN port 08/19/24 05/08/25 Rx topical cream access 30 days #30 grams ondansetron 8 mg disintegrating 8 mg PO Q8H PRN nausea and 08/19/24 05/08/25 Rx tablet vomiting #30 tabs tamoxifen 20 mg tablet 20 mg PO QDAY #90 tabs 04/1405/08/25 Rx Have you fallen in the past year?: Yes Central Venous Access Central Venous Access: Yes Port/PICC: Port CBC, CMP May 08, 2025 reviewed in EMR Exam Physical Exam Narrative ECOG 0-1 Walking with a crutch due to a sprained ankle Const alert, oriented x3 and no apparent distress General Appearance: cooperative and comfortable HEENT normocephalic Face and Sinus: normal facial exam Mouth: oral and palatal mucosa normal Eyes General Eye: normal appearance of both eyes Neck no lymphadenopathy and no JVD Resp clear to auscultation bilaterally Cardio regular rate and regular rhythm Jugular Venous Distention: Negative for JVD GI soft to palpation, non-tender and non-distended; Negative for hepatosplenomegaly Back/Spine no thoracic nor lumbar tenderness Extremity no clubbing, cyanosis or edema Skin no rashes or lesions noted Neuro oriented x3, CN's II-XII intact bilaterally and no focal motor deficits Coordination / Balance: [id number]-[id number] test normal Speech: speech normal Gait (Neuro): normal gait Psych mental status grossly normal Coding Level of Care Code Off vis,est,level 4 Exam Problem Focused Diagnoses Malignant neoplasm of upper-inner quadrant of left breast in female, estrogen receptor positive C50.212; Z17.0 Breast location: upper inner quadrant of breast Estrogen receptor status: positive Patient sex: female Assessment and Plan Assessment and Plan (1) Breast cancer, left breast: Status: Chronic Qualifiers: Breast location: upper inner quadrant of breast Estrogen receptor status: positive Patient sex: female Qualified Code(s): C50.212 - Malignant neoplasm of upper- inner quadrant of left female breast; Z17.0 - Estrogen receptor positive status [ER+] Plan 74-year-old female with bilateral breast cancers: 1. 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 Carcinoma is ER positive (50%, moderate) KY positive (10%, moderate to strong) HER-2 equivocal 2+ by IHC, negative by FISH. Cancer was detected on screening mammography measuring 5 mm in maximum diameter . Patient is status post left partial mastectomy with sentinel lymph node biopsy June 2021, received adjuvant radiation August 2021. Started adjuvant hormonal therapy with an aromatase inhibitor September 2021. 2. Right breast cancer: 2023 invasive ductal cancer; stage I (T1a, N0, M0). Cancer is ER positive (29%, weak) KY negative (0) HER2/asif overexpressed 3+ and Ki-67 low at 21%. Cancer was detected on screening mammography. Patient is status post right partial mastectomy with sentinel lymph node biopsy June 2024 while still on adjuvant hormonal therapy with Arimidex. PET/CT July 2024 showed no evidence of distant metastases. Started adjuvant systemic chemo immune therapy with weekly Taxol Herceptin August 29, 2024. She received cycle 1 (the first 3 weeks) then has been delayed twice now due to neutropenia. Patient has a family history of breast cancer (2 sisters and mother). Genetic testing was done at [facility] January 2022, no deleterious genetic mutation was identified. 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 Plan: Based on NCCN guidelines and up-to-date review of treatment of breast cancer. 1-concluded 12 weeks of paclitaxel with Herceptin and is to conclude total 12 months of immunotherapy with trastuzumab. 2-Adjuvant hormonal treatment with tamoxifen started January 2025 , since right breast cancer evolved while on Arimidex and keeping in mind that the patient's ER expression is rather weak but not negative. 3-patient will have serial evaluation of cardiac ejection fraction by echo every 3 months. Her last ejection fraction was normal at 55% March,. She is also followed in cardio oncology clinic including for her reported palpitations Patient was seen , impression and plan discussed. Arturo Olivas MD Pattern Chart Writer, [facility] Divisions of Medical Oncology & Hematology Department of Internal Medicine [place] [phone] This note was generated using a voice recognition system software. Although it was reviewed by the author prior to finalization, it may still contain incorrect words, spelling, and punctuation that were not noted when reviewing prior to saving. If a clinically significant typo or inaccurately typed phrase is noted, please notify the author. Clinical Quality Measures Falls Risk Screening/Assistive Devices Have you fallen in the past year?: Yes 05/08/25 1000 <Electronically signed by Arturo mahoney MD> Date _ Arutro Olivas MD Cosigner Signature: Date (if applicable) CC: ~ [facility] Work Phone: 1(406) 747-207707-01-2025 Evaluation + Plan note* Assessment & Plan Note - Kristina Mcginnis MD - 04/29/2025 8:00 AM EDTAssociated Problem(s): Medicare annual wellness visit, subsequent Orders: [facility] Work Phone: 1(915) 381-321707-01-2025 History of Present illness Narrative* Kristina Mcginnis MD - 04/29/2025 8:00 AM EDT Subjective Reason for Visit: Reba Beckford is an 74 y.o. female here for a Medicare Wellness visit. Past Medical, Surgical, and Family History reviewed and updated in chart. Reviewed all medications by prescribing practitioner or clinical pharmacist (such as prescriptions,OTCs, herbal therapies and supplements) and documented in the medical record. HPI Had brca in 21 on L her2-, in 26 on R her2+ On tamoxifen, after lumpectomy, 12ctx and 16 radtx, and on 6 of12 immunotherapy. MMG and US sched 8-15 Had irreg hr. Nya did monitor and normal. Gets echo regularly for chemo eval Labs on file from oncology reviewed Patient Care Team: Kristina Mcginnis MD as PCP - General Kristina Mcginnis MD as PCP - [employer] Medicare Advantage PCP Review of Systems General-no fatigue weight to within 10 pounds ENT no problems with vision swallowing Cardiac no chest pains palpitations change in exercise tolerance or capacity Pulmonary no cough shortness of breath GI no heartburn or abdominal pain Musculoskeletal no joint pains Objective Vitals: Pulse 75 Wt 83.9 kg (185 lb) SpO2 95% BMI 28.13 kg/m Physical Exam General: Alert, No acute distress. Appears stated age Eye: Pupils are equal, round and reactive to light, Extraocular movements are intact, Normal conjunctiva. Neck: Supple, Non-tender, No carotid bruit, No jugular venous distention, No lymphadenopathy, No thyromegaly. Respiratory: Lungs are clear to auscultation, Respirations are non-labored, Breath sounds are equal. Cardiovascular: Normal rate, Regular rhythm, No murmur. Gastrointestinal: Soft, Non-tender, No organomegaly. No solid or pulsatile mass Integumentary: Warm, Dry. No concerning lesions on exposed areas Neurologic: Alert, Oriented. Gross and fine motor intact, CN 2-12 intact Psychiatric: Cooperative, Appropriate mood & affect. Assessment & Plan Medicare annual wellness visit, subsequent Orders: Follow Up In Primary Care - Established Routine general medical examination at health care facility Orders: 1 Year Follow Up In Primary Care - Wellness Exam; [facility] Work Phone: [phone]) 782-282907-01-2025 Miscellaneous Notes* Assessment & Plan Note - Kristina Mcginnis MD - 04/29/2025 8:00 AM EDTAssociated Problem(s): Medicare annual wellness visit, subsequent Orders: Follow Up In Primary Care - Establ[facility] Work Phone: 1(950) 414-875906-19-2025 Evaluation note* Diagnosis Onset Date Resolution Status Admit Date Breast cancer, left breast 2020 chronic April 17, 2025 10:38am Breast cancer, left breast 2020 chronic May 08, 2025 8:23am Breast cancer, left breast 2020 chronic May 29, 2025 10:31am DVT (deep venous thrombosis) acute June 19, 2025 9:19am Breast cancer, left breast 2020 chronic June 19, 2025 9:19am Breast cancer, right acute Jun emb2024 9:40am Breast cancer, left breast 2020 chronic July 07, 2025 9:40am DVT (deep venous thrombosis) acute July 10, 2025 10:40am Pulmonary embolism acute 2024 10:40am Breast cancer, left breast 2020 chronic July 10, 2025 10:40am DVT (deep venous thrombosis) acute July 31, 2025 10:24am Pulmonary embolism acute Oct2024 10:24am Breast cancer, left breast 2020 chronic July 31, 2025 10:24am [facility] Work Phone: [phone]) 134-319005-29-2025 Evaluation note* Diagnosis Onset Date Resolution Status Admit Date Breast cancer, left breast 2020 chronic March 27, 2025 9:59am Breast cancer, left breast 2020 chronic April 17, 2025 10:38am Breast cancer, left breast 2020 chronic May 08, 2025 8:23am Breast cancer, left breast 2020 chronic May 29, 2025 10:31am DVT (deep venous thrombosis) acute June 19, 2025 9:19am Breast cancer, left breast 2020 chronic June 19, 2025 9:19am [facility] Work Phone: [phone]) 738-133205-29-2025 Evaluation note* Diagnosis Onset Date Resolution Status Admit Date Breast cancer, left breast 2020 chronic March 27, 2025 9:59am Breast cancer, left breast 2020 chronic April 17, 2025 10:38am Breast cancer, left breast 2020 chronic May 08, 2025 8:23am Breast cancer, left breast 2020 chronic May 29, 2025 10:31am DVT (deep venous thrombosis) acute June 19, 2025 9:19am Breast cancer, left breast 2020 chronic June 19, 2025 9:19am Breast cancer, right acute Jun 9:40am Breast cancer, left breast 2020 chronic July 07, 2025 9:40am DVT (deep venous thrombosis) acute July 10, 2025 10:40am Pulmonary embolism acute 2024 10:40am Breast cancer, left breast 2020 chronic July 10, 2025 10:40am [facility] Work Phone: [phone]) 401-982705-29-2025 [facility] [address] [place] [address] OFFICE VISIT Date of Service: 03/27/25 [facility] MR#: [id number] Acct: [id number] Name: REBA BECKFORD Rep #: [id number] : 1950 From: Arturo sanchez MD Age/Sex: 74/F Location: [facility] Status: Signed HPI Subjective Date of Service 03/27/25 Chief Complaint breast cancer on treatment History of Present Illness 74-year-old female with a strong family history of breast cancer (mother and 2 sisters) in additionto colon cancer (brother), leukemia and esophageal cancer (brother) who was compliant with annual screening mammography . She has a remote history of right breast biopsy negative for cancer and past history of colon polyps. May 24, 2021 screening mammography: An ovoid mass in the left breast new in comparison to 12/19/2019. June 03, 2021 ultrasonography, at 10:00 mass measuring 5 mm in maximum diameter. 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 July 08, 2021 left breast partial mastectomy with sentinel lymph node biopsy: MICROSCOPIC DIAGNOSISA. Left axillary sentinel lymph nodes, biopsy:Three out ofthree lymph nodes negative for metastatic carcinoma.B. Left breast mass, needlelocalization lumpectomy:Invasive ductal carcinoma.See cancer summary in the comment section.SJ:phuc 07/13/2021 COMMENTA. Immunohistochemistry ([id number]) supports the above diagnosis.B. BREAST CANCER SUMMARYProcedure ?lumpectomy withwire-guided localization Specimen laterality ?leftInvasive tumor:Tumor site ?upper inner quadrant as per EMRTumor size ?0.5 x 0.2 cm (measured microscopically)Histologic type ?invasive ductal carcinoma, not otherwise specifiedHistologic grade ([place] grade):Glandular/tubular differentiation score -3Nuclear pleomorphism score -3Mitotic count score -2Overall grade ?grade 3(score of 8)Tumor focality ?single focus of invasive carcinomaDuctal carcinoma in situ ?not identified Tumor extension:Skin ?not presentNipple ?not applicableSkeletal muscle ?no skeletal muscle is presentMargins:Invasive carcinoma margin ?The invasive carcinoma is 0.5 cm away from closest inferior margin.Ductal carcinoma in situ margin ?not applicableRegional lymph nodes:Number of lymph nodes examined ?3Number of sentinel lymph nodes examined -3Number of lymph nodes with macrometastases, micrometastases or isolated tumor cells -0Treatment effect ?no known presurgical therapy.Lymphvascular invasion ?not identified Dermal lymphvascular invasion ?not applicableAdditional Pathologic Findings ?fibro cystic changes.Ancillary Studies: Previously performed at [facility] ([id number])ER: Positive (50%, moderate)KY: Positive (10%, moderate tostrong)Pfk0mgf: Equivocal (2+)Xrb2NYON AMAIRANI ?negative(non- amplified)Microcalcifications ?not identifiedClinical History -Please make reference to previous specimen from [facility] ([id number]) left breast, ultrasound-guided core needle biopsy with diagnosis of ?invasive ductal carcinoma, grade 2-3.?PATHOLOGIC STAGE: pT1a pN0(sn) pMx CT chest August 02, 2021: Was obtained when an abnormality in the left lung was seen on planning radiation therapy for the breast. IMPRESSION: 6.9 cm x 6.7 cm x 6.7 cm solid mass in the peripheral lateral aspect of the left lower lobe abutting the pleural surface. Postoperative changes in the left axillary region. Hepatic cysts. August 17, 2021 Left lower lung mass, CT-guided core biopsy:Solitary fibrous tumor. October 08, 2021 resection of left lower lobe lung mass at [facility]. June 12, 2024 screening mammogram: Right breast BIRADS Category 4: Suspicious- June 19, 2024 Right breast, upper outer quadrant microcalcification, stereotactic core biopsy: Invasive ductal carcinoma. Focal ductal carcinoma in situ ANTIBODY / CLONE RESULT E-Cad (ECH-6) REPEAT CK8 ([id number]) positive Calponin-1 (ZB685G) negative * CK5-6 (D5 & 1684) negative * P40 (BC28) negative * P53 (DO-7) negative (null pattern) Ki-67 (30-9) positive, low 21% MORPHOMETRIC ANALYSIS ER (clone 6F11) 29% , weak intensity KY (clone 16/1E2) 0% Her-2Neu (clone CB11) 3+ July 11, 2024 right partial mastectomy with sentinel lymph node biopsy: MICROSCOPIC DIAGNOSIS A. [place] lymph node, biopsy: One lymph node, negative for metastatic carcinoma. See comment. B. Additional right sentinel lymph node, biopsy: Two out of two lymph nodes, negative for metastatic carcinoma. See comment. C. 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 See cancer summary in the comment section. D. New lateral margin: Negative for carcinoma. Focal fibrocystic changes. See comment. E. New medial margin: Negative for carcinoma. BREAST CANCER SUMMARY Procedure ? Partial mastectomy Specimen laterality - Right Invasive tumor: Tumor site ? Upper outer quadrant Tumor size ? 0.5 x 0.4cm (measured microscopically). Histologic type ? Invasive ductal carcinoma Histologic grade ([place] grade): Glandular/tubular differentiation score - 3 Nuclear pleomorphism score - 3 Mitotic count score - 1 Overall grade - grade 2 (score of 7) Tumor focality ? single focus of invasive carcinoma Ductal carcinoma in situ - Present Positive for extensive intraductal component (EIC). Size (extent) of DCIS ?. DCIS comprises ~70% of total tumor volume. Estimated size of DCIS - 0.7 x 0.4 cm largest focus, measured microscopically Number of blocks with DCIS - 2 Number of blocks examined ? 17 (specimen B, C & D) Architectural pattern ? [place] and solid Nuclear grade - grade 3 (high) Necrosis - present, central (expansive comedo necrosis) Lobular carcinoma in situ ? Not identified Tumor extension: Skin ? Not present Nipple ? Not applicable Skeletal muscle ? Present, not involved by tumor (specimen D) Margins: Margins are free of invasive carcinoma and ductal carcinoma in situ. Invasive carcinoma is 1.0 cm from the closest superior margin. (biopsy cavity present at the medial margin, however, no tumor is noted at the margin) new medial margin is also negative for carcinoma. Ductal carcinoma in situ is 0.5 cm away from the closest posterior margin. Regional lymph nodes: Number of lymph nodes examined - 3 Number of sentinel lymph nodes examined - 3 Number of lymph nodes with macrometastases, micrometastases or isolated tumor cells - 0 Treatment effect - no known presurgical therapy. Lymphvascular invasion ? Not identified Dermal lymphvascular invasion ? Not applicable Additional Pathologic Findings ? Changes consistent previous biopsy site. Fibrocystic changes and lobular involution. Ancillary Studies: Previously performed on same tumor ([id number] / [id number]) ER: positive (29%, weak intensity) KY: negative (0) Hff2hiz: positive (3+) Ki67: low, 21% Microcalcifications ? Present in non-neoplastic tissue and invasive carcinoma Clinical History ? please make reference to previous specimen [id number], right breast, stereotactic core biopsy with diagnosis of invasive ductal carcinoma and ductal carcinoma in situ. PATHOLOGIC STAGE: pT1a pN0(sn) pMx August 06, 2024 PET/CT: IMPRESSION: 1. Increase in radiopharmaceutical concentration superficially apparent in the right anterior chest wall-breast likely represents postoperative change. If neoplasm remains a diagnostic consideration, correlation with suspected pathologic sampling is recommended. 2. No other scintigraphic abnormalities are identified, there is no definitive scintigraphic evidence of distant metastatic disease. Treatment summary and response: * Left breast partial mastectomy with sentinel lymph node: July 08, 2021. Adjuvant hormonal therapy with aromatase inhibitor September 2021-May 2024 Adjuvant radiation therapy: 08/30/2021 ? 09/21/2021: received 4256 cGy of in 16 fractions to the left breast * Right breast July 11, 2024 right partial mastectomy with sentinel lymph node biopsy. August 29, 2024-November 2024 adjuvant Herceptin with weekly Taxol (12 doses) Adjuvant radiation to the right breast 01/06/2025- 01/27/2025 January 02, 2025 maintenance Herceptin Adjuvant hormonal therapy with tamoxifen to start January 2025 [facility] Medical History Encounter for monoclonal antibody treatment for malignancy HER2-positive carcinoma of breast Hypokalemia Lymphedema of right upper extremity Acid reflux Drug induced neutropenia Encounter for chemotherapy management Encounter for education Post-menopausal Back pain Injury of back History of stress test History of irregular heartbeat COVID ER+ (estrogen receptor positive status) Wears glasses Cancer Easy bruising Lightheadedness Heartburn Non-smoker History of colonic polyps Breast cancer, left breast (~05/2021) Multinodular non-toxic goiter Surgical History Hx of partial mastectomy S/P lumpectomy, right breast History of lung surgery History of lumpectomy of left breast (~06/2021) Hx of tubal ligation History of colonoscopy (~03/2017) History of left breast biopsy (~05/2021) History of right breast biopsy (~1980) Family History Brother Colon cancer Hypertension Cancer Leukemia Mother Breast cancer Sister Breast cancer Lymphoma Hypertension Aunt Breast cancer Social History household members: spouse Smoking Status: Never smoker second hand exposure: No alcohol intake: never substance use type: does not use caffeine: No lizbeth/christian: Jain seatbelt use: always do you feel safe at home: Yes ROS Constitutional Constitutional: Reports systems reviewed and no addt'l complaints, except as documented; Denies fever(s) or weight loss Eyes Eyes: Reports systems reviewed and no addt'l complaints, except as documented ENT HEENT: Reports systems reviewed and no addt'l complaints, except as documented; Denies mouth lesions Cardiovascular Cardiovascular: Reports systems reviewed and no addt'l complaints, except as documented; Denies chest pain with activity or edema Respiratory/Chest Respiratory/Chest: Reports systems reviewed and no addt'l complaints, except as documented; Denies cough or dyspnea on exertion Gastrointestinal Gastrointestinal: Reports systems reviewed and no addt'l complaints, except as documented; Denies abdominal pain or change in bowel habits Genitourinary Genitourinary: Reports systems reviewed and no addt'l complaints, except as documented Musculoskeletal Musculoskeletal: Reports systems reviewed and no addt'l complaints, except as documented; Denies back pain Integumentary Integumentary: Reports systems reviewed and no addt'l complaints, except as documented; Denies new lesions Neurologic Neurologic: Reports systems reviewed and no addt'l complaints, except as documented; Denies focal weakness Psychiatric Psychiatric: Reports systems reviewed and no addt'l complaints, except as documented Endocrine Endocrinology: Reports systems reviewed and no addt'l complaints, except as documented and flushing Hematologic/Lymphatic Hematologic/Lymphatic: Reports systems reviewed and no addt'l complaints, exceptas documented Allergic/Immunologic Allergic/Immunologic: Reports systems reviewed and no addt'l complaints, except as documented Intake Vital Signs 01/02/25 10:22 03/27/25 10:24 03/27/25 10:39 Height 5 ft 8 in 5 ft 8 in 5 ft 8 in Weight: 83.971 kg BMI 28.1 BP 149/84 H Blood Pressure Location Lt brachial Position Sitting Respiration 18 Pulse 63 Pulse Source Monitor Temp 97.5 F L Temperature Source Temporal Artery Pulse Oximetry (%) 98 Oxygen Delivery Method room air Intake Is patient in pain?: No Allergies naproxen (From Naprosyn) Adverse Reaction (Severe, Verified 03/27/25 10:35) Hives Medications ?Medication ?Instructions ?Recorded ?Confirmed ?Type calcium 600 mg (as 1 cap PO BID 11/08/21 History carbonate)-vitamin D3 12.5 mcg (500 unit) capsule (Calcium with Vit D3) lidocaine-prilocaine 2.5 %-2.5 % 1 applic topical ONCE PRN port 08/19/24 03/27/25 Rx topical cream access 30 days #30 grams ondansetron 8 mg disintegrating 8 mg PO Q8H PRN nausea and 08/19/24 03/27/25 Rx tablet vomiting #30 tabs tamoxifen 20 mg tablet 20 mg PO QDAY #30 tabs 12/1203/27/25 Rx Have you fallen in the past year?: No Central Venous Access Central Venous Access: Yes Port/PICC: Port Exam Physical Exam Narrative ECOG 0 Const alert, oriented x3 and no apparent distress General Appearance: cooperative and comfortable HEENT normocephalic Face and Sinus: normal facial exam Mouth: oral and palatal mucosa normal Eyes General Eye: normal appearance of both eyes Neck no lymphadenopathy and no JVD Resp clear to auscultation bilaterally Cardio regular rate and regular rhythm Jugular Venous Distention: Negative for JVD GI soft to palpation, non-tender and non-distended; Negative for hepatosplenomegaly Back/Spine no thoracic nor lumbar tenderness Extremity no clubbing, cyanosis or edema Skin no rashes or lesions noted Neuro oriented x3, CN's II-XII intact bilaterally and no focal motor deficits Coordination / Balance: oxpdjd-up-urnn test normal Speech: speech normal Gait (Neuro): normal gait Psych mental status grossly normal Coding Level of Care Code Off vis,est,level 4 Exam Problem Focused Diagnoses 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 Carcinoma is ER positive (50%, moderate) KY positive (10%, moderate to strong) HER-2 equivocal 2+ by IHC, negative by FISH. Cancer was detected on screening mammography measuring 5 mm in maximum diameter . Patient is status post left partial mastectomy with sentinel lymph node biopsy June 2021, received adjuvant radiation August 2021. Started adjuvant hormonal therapy with an aromatase inhibitor September 2021. 2. Right breast cancer: 2023 invasive ductal cancer; stage I (T1a, N0, M0). Cancer is ER positive (29%, weak) KY negative (0) HER2/asif overexpressed 3+ and Ki-67 low at 21%. Cancer was detected on screening mammography. Patient is status post right partial mastectomy with sentinel lymph node biopsy June 2024 while still on adjuvant hormonal therapy with Arimidex. PET/CT July 2024 showed no evidence of distant metastases. Started adjuvant systemic chemo immune therapy with weekly Taxol Herceptin August 29, 2024. She received cycle 1 (the first 3 weeks) then has been delayed twice now due to neutropenia. Patient has a family history of breast cancer (2 sisters and mother). Genetic testing was done at [facility] January 2022, no deleterious genetic mutation was identified. 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 Plan: Based on NCCN guidelines and up-to-date review of treatment of breast cancer. 1-concluded 12 weeks of paclitaxel with Herceptin and is to conclude total 12 months of immunotherapy with trastuzumab. 2-Adjuvant hormonal treatment with tamoxifen started January 2025 , since right breast cancer evolvedwhile on Arimidex and keeping in mind that the patient's ER expression is rather weak but not negative. 3-patient will have serial evaluation of cardiac ejection fraction by echo every 3 months. Her lastejection fraction was normal at 60% December. Next scheduled for March 2025. She will also be followed in cardio oncology clinic Patient was seen , impression and plan discussed. Arturo Olivas MD Pattern Chart Writer, [facility] Divisions of Medical Oncology & Hematology Department of Internal Medicine [place] [phone] This note was generated using a voice recognition system software. Although it was reviewed by the author prior to finalization, it may still contain incorrect words, spelling, and punctuation that were not noted when reviewing prior to saving. If a clinically significant typo or inaccurately typedphrase is noted, please notify the author. Clinical Quality Measures Falls Risk Screening/Assistive Devices Have you fallen in the past year?: No 03/27/25 1109 denzel CHRISTIANSEN> Date _ Arturo Olivas MD Cosigner Signature: Date (if applicable) CC: ~ [facility]05-29-2025 Progress note Author Arturo Olivas [facility] Note Date/Time March 27, 2025 11:09 am [address] [place] [address] OFFICE VISIT Date of Service: 03/27/25 1024 MR#: [id number] Acct: [id number] Name: REBA BECKFORD Rep #: [id number] : 1950 From: Arturo sanchez MD Age/Sex: 74/F [place] [facility] Status: Signed HPI Subjective Date of Service 03/27/25 Chief Complaint breast cancer on treatment History of Present Illness 74-year-old female with a strong family history of breast cancer (mother and 2 sisters) in addition to colon cancer (brother), leukemia and esophageal cancer (brother) who was compliant with annual screening mammography . She has a remote history of right breast biopsy negative for cancer and past history of colon polyps. May 24, 2021 screening mammography: An ovoid mass in the left breast new in comparison to 12/19/2019. June 03, 2021 ultrasonography, at 10:00 mass measuring 5 mm in maximum diameter. 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 July 08, 2021 left breast partial mastectomy with sentinel lymph node biopsy: MICROSCOPIC DIAGNOSISA. Left axillary sentinel lymph nodes, biopsy:Three out ofthree lymph nodes negative for metastatic carcinoma.B. Left breast mass, needlelocalization lumpectomy:Invasive ductal carcinoma.See cancer summary in the comment section.SJ:phuc 07/13/2021 COMMENTA. Immunohistochemistry ([id number]) supports the above diagnosis.B. BREAST CANCER SUMMARYProcedure ?lumpectomy withwire-guided localization Specimen laterality ?leftInvasive tumor:Tumor site ?upper inner quadrant as per EMRTumor size ?0.5 x 0.2 cm (measured microscopically)Histologic type ?invasive ductal carcinoma, not otherwise specifiedHistologic grade ([place] grade):Glandular/tubular differentiation score -3Nuclear pleomorphism score -3Mitotic count score - 2Overall grade ?grade 3(score of 8)Tumor focality ?single focus of invasive carcinomaDuctal carcinoma in situ ?not identified Tumor extension:Skin ?not presentNipple ?not applicableSkeletal muscle ?no skeletal muscle is presentMargins:Invasive carcinoma margin ?The invasive carcinoma is 0.5 cm away from closest inferior margin.Ductal carcinoma in situ margin ?not applicableRegional lymph nodes:Number of lymph nodes examined ?3Number of sentinel lymph nodes examined -3Number of lymph nodes with macrometastases, micrometastases or isolated tumor cells -0Treatment effect ?no known presurgical therapy.Lymphvascular invasion ?not identified Dermal lymphvascular invasion ?not applicableAdditional Pathologic Findings ?fibrocystic changes.Ancillary Studies: Previously performed at [facility] ([id number])ER: Positive (50%, moderate)KY: Positive (10%, moderate tostrong)Avl3dbv: Equivocal (2+)Sly9FRBD AMAIRANI ?negative (non-amplified)Microcalcifications ?not identifiedClinical History -Please make reference to previous specimen from [facility] ([id number]) left breast, ultrasound-guided core needle biopsy with diagnosis of ?invasive ductal carcinoma, grade 2-3.?PATHOLOGIC STAGE: pT1a pN0(sn) pMx CT chest August 02, 2021: Was obtained when an abnormality in the left lung was seen on planning radiation therapy for the breast. IMPRESSION: 6.9 cm x 6.7 cm x 6.7 cm solid mass in the peripheral lateral aspect of the left lower lobe abutting the pleural surface. Postoperative changes in the left axillary region. Hepatic cysts. August 17, 2021 Left lower lung mass, CT-guided core biopsy:Solitary fibrous tumor. October 08, 2021 resection of left lower lobe lung mass at [facility]. June 12, 2024 screening mammogram: Right breast BIRADS Category 4: Suspicious- June 19, 2024 Right breast, upper outer quadrant microcalcification, stereotactic core biopsy: Invasive ductal carcinoma. Focal ductal carcinoma in situ ANTIBODY / CLONE RESULT E-Cad (ECH-6) REPEAT CK8 ([id number]) positive Calponin-1 (KM367K) negative * CK5-6 (D5 & 1684) negative * P40 (BC28) negative * P53 (DO-7) negative (null pattern) Ki-67 (30-9) positive, low 21% MORPHOMETRIC ANALYSIS ER (clone 6F11) 29% , weak intensity KY (clone 16/1E2) 0% Her-2Neu (clone CB11) 3+ July 11, 2024 right partial mastectomy with sentinel lymph node biopsy: MICROSCOPIC DIAGNOSIS A. [place] lymph node, biopsy: One lymph node, negative for metastatic carcinoma. See comment. B. Additional right sentinel lymph node, biopsy: Two out of two lymph nodes, negative for metastatic carcinoma. See comment. C. 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 See cancer summary in the comment section. D. New lateral margin: Negative for carcinoma. Focal fibrocystic changes. See comment. E. New medial margin: Negative for carcinoma. BREAST CANCER SUMMARY Procedure ? Partial mastectomy Specimen laterality - Right Invasive tumor: Tumor site ? Upper outer quadrant Tumor size ? 0.5 x 0.4cm (measured microscopically). Histologic type ? Invasive ductal carcinoma Histologic grade ([place] grade): Glandular/tubular differentiation score - 3 Nuclear pleomorphism score - 3 Mitotic count score - 1 Overall grade - grade 2 (score of 7) Tumor focality ? single focus of invasive carcinoma Ductal carcinoma in situ - Present Positive for extensive intraductal component (EIC). Size (extent) of DCIS ?. DCIS comprises ~70% of total tumor volume. Estimated size of DCIS - 0.7 x 0.4 cm largest focus, measured microscopically Number of blocks with DCIS - 2 Number of blocks examined ? 17 (specimen B, C & D) Architectural pattern ? [place] and solid Nuclear grade - grade 3 (high) Necrosis - present, central (expansive comedo necrosis) Lobular carcinoma in situ ? Not identified Tumor extension: Skin ? Not present Nipple ? Not applicable Skeletal muscle ? Present, not involved by tumor (specimen D) Margins: Margins are free of invasive carcinoma and ductal carcinoma in situ. Invasive carcinoma is 1.0 cm from the closest superior margin. (biopsy cavity present at the medial margin, however, no tumor is noted at the margin) new medial margin is also negative for carcinoma. Ductal carcinoma in situ is 0.5 cm away from the closest posterior margin. Regional lymph nodes: Number of lymph nodes examined - 3 Number of sentinel lymph nodes examined - 3 Number of lymph nodes with macrometastases, micrometastases or isolated tumor cells - 0 Treatment effect - no known presurgical therapy. Lymphvascular invasion ? Not identified Dermal lymphvascular invasion ? Not applicable Additional Pathologic Findings ? Changes consistent previous biopsy site. Fibrocystic changes and lobular involution. Ancillary Studies: Previously performed on same tumor ([id number] / [id number]) ER: positive (29%, weak intensity) KY: negative (0) Qni5iis: positive (3+) Ki67: low, 21% Microcalcifications ? Present in non-neoplastic tissue and invasive carcinoma Clinical History ? please make reference to previous specimen [id number], right breast, stereotactic core biopsy with diagnosis of invasive ductal carcinoma and ductal carcinoma in situ. PATHOLOGIC STAGE: pT1a pN0(sn) pMx August 06, 2024 PET/CT: IMPRESSION: 1. Increase in radiopharmaceutical concentration superficially apparent in the right anterior chest wall-breast likely represents postoperative change. If neoplasm remains a diagnostic consideration, correlation with suspected pathologic sampling is recommended. 2. No other scintigraphic abnormalities are identified, there is no definitive scintigraphic evidence of distant metastatic disease. Treatment summary and response: * Left breast partial mastectomy with sentinel lymph node: July 08, 2021. Adjuvant hormonal therapy with aromatase inhibitor September 2021-May 2024 Adjuvant radiation therapy: 08/30/2021 ? 09/21/2021: received 4256 cGy of in 16 fractions to the left breast * Right breast July 11, 2024 right partial mastectomy with sentinel lymph node biopsy. August 29, 2024-November 2024 adjuvant Herceptin with weekly Taxol (12 doses) Adjuvant radiation to the right breast 01/06/2025- 01/27/2025 January 02, 2025 maintenance Herceptin Adjuvant hormonal therapy with tamoxifen to start January 2025 [facility] Medical History Encounter for monoclonal antibody treatment for malignancy HER2-positive carcinoma of breast Hypokalemia Lymphedema of right upper extremity Acid reflux Drug induced neutropenia Encounter for chemotherapy management Encounter for education Post-menopausal Back pain Injury of back History of stress test History of irregular heartbeat COVID ER+ (estrogen receptor positive status) Wears glasses Cancer Easy bruising Lightheadedness Heartburn Non-smoker History of colonic polyps Breast cancer, left breast (~05/2021) Multinodular non-toxic goiter Surgical History Hx of partial mastectomy S/P lumpectomy, right breast History of lung surgery History of lumpectomy of left breast (~06/2021) Hx of tubal ligation History of colonoscopy (~03/2017) History of left breast biopsy (~05/2021) History of right breast biopsy (~1980) Family History Brother Colon cancer Hypertension Cancer Leukemia Mother Breast cancer Sister Breast cancer Lymphoma Hypertension Aunt Breast cancer Social History household members: spouse Smoking Status: Never smoker second hand exposure: No alcohol intake: never substance use type: does not use caffeine: No lizbeth/christian: Jain seatbelt use: always do you feel safe at home: Yes ROS Constitutional Constitutional: Reports systems reviewed and no addt'l complaints, except as documented; Denies fever(s) or weight loss Eyes Eyes: Reports systems reviewed and no addt'l complaints, except as documented ENT HEENT: Reports systems reviewed and no addt'l complaints, except as documented; Denies mouth lesions Cardiovascular Cardiovascular: Reports systems reviewed and no addt'l complaints, except as documented; Denies chest pain with activity or edema Respiratory/Chest Respiratory/Chest: Reports systems reviewed and no addt'l complaints, except as documented; Denies cough or dyspnea on exertion Gastrointestinal Gastrointestinal: Reports systems reviewed and no addt'l complaints, except as documented; Denies abdominal pain or change in bowel habits Genitourinary Genitourinary: Reports systems reviewed and no addt'l complaints, except as documented Musculoskeletal Musculoskeletal: Reports systems reviewed and no addt'l complaints, except as documented; Denies back pain Integumentary Integumentary: Reports systems reviewed and no addt'l complaints, except as documented; Denies new lesions Neurologic Neurologic: Reports systems reviewed and no addt'l complaints, except as documented; Denies focal weakness Psychiatric Psychiatric: Reports systems reviewed and no addt'l complaints, except as documented Endocrine Endocrinology: Reports systems reviewed and no addt'l complaints, except as documented and flushing Hematologic/Lymphatic Hematologic/Lymphatic: Reports systems reviewed and no addt'l complaints, exceptas documented Allergic/Immunologic Allergic/Immunologic: Reports systems reviewed and no addt'l complaints, except as documented Intake Vital Signs 01/02/25 10:22 03/27/25 10:24 03/27/25 10:39 Height 5 ft 8 in 5 ft 8 in 5 ft 8 in Weight: 83.971 kg BMI 28.1 BP 149/84 H Blood Pressure Location Lt brachial Position Sitting Respiration 18 Pulse 63 Pulse Source Monitor Temp 97.5 F L Temperature Source Temporal Artery Pulse Oximetry (%) 98 Oxygen Delivery Method room air Intake Is patient in pain?: No Allergies naproxen (From Naprosyn) Adverse Reaction (Severe, Verified 03/27/25 10:35) Hives Medications ?Medication ?Instructions ?Recorded ?Confirmed ?Type calcium 600 mg (as 1 cap PO BID 11/08/21 History carbonate)-vitamin D3 12.5 mcg (500 unit) capsule (Calcium with Vit D3) lidocaine-prilocaine 2.5 %-2.5 % 1 applic topical ONCE PRN port 08/19/24 03/27/25 Rx topical cream access 30 days #30 grams ondansetron 8 mg disintegrating 8 mg PO Q8H PRN nausea and 08/19/24 03/27/25 Rx tablet vomiting #30 tabs tamoxifen 20 mg tablet 20 mg PO QDAY #30 tabs 12/1203/27/25 Rx Have you fallen in the past year?: No Central Venous Access Central Venous Access: Yes Port/PICC: Port Exam Physical Exam Narrative ECOG 0 Const alert, oriented x3 and no apparent distress General Appearance: cooperative and comfortable HEENT normocephalic Face and Sinus: normal facial exam Mouth: oral and palatal mucosa normal Eyes General Eye: normal appearance of both eyes Neck no lymphadenopathy and no JVD Resp clear to auscultation bilaterally Cardio regular rate and regular rhythm Jugular Venous Distention: Negative for JVD GI soft to palpation, non-tender and non-distended; Negative for hepatosplenomegaly Back/Spine no thoracic nor lumbar tenderness Extremity no clubbing, cyanosis or edema Skin no rashes or lesions noted Neuro oriented x3, CN's II-XII intact bilaterally and no focal motor deficits Coordination / Balance: lmwvbw-wh-ryzd test normal Speech: speech normal Gait (Neuro): normal gait Psych mental status grossly normal Coding Level of Care Code Off vis,est,level 4 Exam Problem Focused Diagnoses Malignant neoplasm of upper-inner quadrant of left breast in female, estrogen receptor positive C50.212; Z17.0 Breast location: upper inner quadrant of breast Estrogen receptor status: positive Patient sex: female Assessment and Plan Assessment and Plan (1) Breast cancer, left breast: Status: Chronic Qualifiers: Breast location: upper inner quadrant of breast Estrogen receptor status: positive Patient sex: female Qualified Code(s): C50.212 - Malignant neoplasm of upper- inner quadrant of left female breast; Z17.0 - Estrogen receptor positive status [ER+] Plan 74-year-old female with bilateral breast cancers: 1. 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 Carcinoma is ER positive (50%, moderate) KY positive (10%, moderate to strong) HER-2 equivocal 2+ by IHC, negative by FISH. Cancer was detected on screening mammography measuring 5 mm in maximum diameter . Patient is status post left partial mastectomy with sentinel lymph node biopsy June 2021, received adjuvant radiation August 2021. Started adjuvant hormonal therapy with an aromatase inhibitor September 2021. 2. Right breast cancer: 2023 invasive ductal cancer; stage I (T1a, N0, M0). Cancer is ER positive (29%, weak) KY negative (0) HER2/asif overexpressed 3+ and Ki-67 low at 21%. Cancer was detected on screening mammography. Patient is status post right partial mastectomy with sentinel lymph node biopsy June 2024 while still on adjuvant hormonal therapy with Arimidex. PET/CT July 2024 showed no evidence of distant metastases. Started adjuvant systemic chemo immune therapy with weekly Taxol Herceptin August 29, 2024. She received cycle 1 (the first 3 weeks) then has been delayed twice now due to neutropenia. Patient has a family history of breast cancer (2 sisters and mother). Genetic testing was done at [facility] January 2022, no deleterious genetic mutation was identified. 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 Plan: Based on NCCN guidelines and up-to-date review of treatment of breast cancer. 1-concluded 12 weeks of paclitaxel with Herceptin and is to conclude total 12 months of immunotherapy with trastuzumab. 2-Adjuvant hormonal treatment with tamoxifen started January 2025 , since right breast cancer evolved while on Arimidex and keeping in mind that the patient's ER expression is rather weak but not negative. 3-patient will have serial evaluation of cardiac ejection fraction by echo every 3 months. Her last ejection fraction was normal at 60% December. Next scheduled for March 2025. She will also be followed in cardio oncology clinic Patient was seen , impression and plan discussed. Arturo Olivas MD Pattern Chart Writer, [facility] Divisions of Medical Oncology & Hematology Department of Internal Medicine [place] [phone] This note was generated using a voice recognition system software. Although it was reviewed by the author prior to finalization, it may still contain incorrect words, spelling, and punctuation that were not noted when reviewing prior to saving. If a clinically significant typo or inaccurately typed phrase is noted, please notify the author. Clinical Quality Measures Falls Risk Screening/Assistive Devices Have you fallen in the past year?: No 03/27/25 1109 <Electronically signed by Arturo mahoney MD> Date _ Arturo Olivas MD Cosigner Signature: Date (if applicable) CC: ~ [facility] Work Phone: 1(564) 348-465305-08-2025 Evaluation note* Diagnosis Onset Date Resolution Status Admit Date Breast cancer, left breast 2020 chronic March 06, 2025 10:05am Breast cancer, right acute March 06, 2025 10:05am Breast cancer, left breast 2020 chronic March 06, 2025 10:05am Breast cancer, left breast 2020 chronic March 27, 2025 9:59am Breast cancer, left breast 2020 chronic April 17, 2025 10:38am Breast cancer, left breast 2020 chronic May 08, 2025 8:23am Breast cancer, left breast 2020 chronic May 29, 2025 10:31am [facility] Work Phone: 1(500) 873-411005-08-2025 Evaluation note* Diagnosis Onset Date Resolution Status Admit Date Breast cancer, left breast 2020 chronic March 06, 2025 10:05am Breast cancer, right acute March 06, 2025 10:05am Breast cancer, left breast 2020 chronic March 06, 2025 10:05am Breast cancer, left breast 2020 chronic March 27, 2025 9:59am Breast cancer, left breast 2020 chronic April 17, 2025 10:38am Breast cancer, left breast 2020 chronic May 08, 2025 8:23am Breast cancer, left breast 2020 chronic May 29, 2025 10:31am DVT (deep venous thrombosis) acute June 19, 2025 9:19am Breast cancer, left breast 2020 chronic June 19, 2025 9:19am [facility] Work Phone: 1(972) 636-718604-11-2025 Evaluation note* Diagnosis Onset Date Resolution Status Admit Date HER2-positive carcinoma of breast acute February 07, 2025 10:06am Breast cancer, left breast 2020 chronic February 13, 2025 9:46am Breast cancer, left breast 2020 chronic March 06, 2025 10:05am Breast cancer, right acute March 06, 2025 10:05am Breast cancer, left breast 2020 chronic March 06, 2025 10:05am Breast cancer, left breast 2020 chronic March 27, 2025 9:59am Breast cancer, left breast 2020 chronic April 17, 2025 10:38am Breast cancer, left breast 2020 chronic May 08, 2025 8:23am Breast cancer, left breast 2020 chronic May 29, 2025 10:31am [facility] Work Phone: 1(894) 426-550303-12-2025 Evaluation note* Diagnosis Onset Date Resolution Status Admit Date Breast cancer, right acute Toney h 2024 8:18am Breast cancer, left breast 2020 chronic January 08, 2025 8:18am Breast cancer, right acute Toney h 2024 11:17am Breast cancer, left breast 2020 chronic January 15, 2025 11:17am Breast cancer, right acute Toney h 2024 10:18am Breast cancer, left breast 2020 chronic January 22, 2025 10:18am Breast cancer, left breast 2020 chronic January 23, 2025 10:15am Breast cancer, right acute Toney h 2024 10:09am Breast cancer, left breast 2020 chronic January 27, 2025 10:09am HER2-positive carcinoma of breast acute February 07, 2025 10:06am Breast cancer, left breast 2020 chronic February 13, 2025 9:46am Breast cancer, left breast 2020 chronic March 06, 2025 10:05am Breast cancer, right acute March 06, 2025 10:05am Breast cancer, left breast 2020 chronic March 06, 2025 10:05am Breast cancer, left breast 2020 chronic March 27, 2025 9:59am Breast cancer, left breast 2020 chronic April 17, 2025 10:38am Breast cancer, left breast 2020 chronic May 08, 2025 8:23am [facility] Work Phone: 1([phone]) 926-209002-27-2025 Evaluation note* Diagnosis Onset Date Resolution Status Admit Date Breast cancer, right acute Febr uary 2024 11:04am Breast cancer, left breast 2020 chronic December 26, 2024 11:04am Breast cancer, left breast 2020 chronic January 02, 2025 9:07am Breast cancer, right acute Toney h 2024 8:18am Breast cancer, left breast 2020 chronic January 08, 2025 8:18am Breast cancer, right acute Toney h 2024 11:17am Breast cancer, left breast 2020 chronic January 15, 2025 11:17am Breast cancer, right acute Toney h 2024 10:18am Breast cancer, left breast 2020 chronic January 22, 2025 10:18am Breast cancer, left breast 2020 chronic January 23, 2025 10:15am Breast cancer, right acute Toney h 2024 10:09am Breast cancer, left breast 2020 chronic January 27, 2025 10:09am HER2-positive carcinoma of breast acute February 07, 2025 10:06am Breast cancer, left breast 2020 chronic February 13, 2025 9:46am Breast cancer, left breast 2020 chronic March 06, 2025 10:05am Breast cancer, right acute March 06, 2025 10:05am Breast cancer, left breast 2020 chronic March 06, 2025 10:05am Breast cancer, left breast 2020March 27, 2025 9:59am [facility] Work Phone: [phone]) 686-821002-27-2025 Evaluation note* Diagnosis Onset Date Resolution Status Admit Date Breast cancer, right acute Febr 2024 11:04am Breast cancer, left breast 2020 chronic December 26, 2024 11:04am Breast cancer, left breast 2020 chronic January 02, 2025 9:07am Breast cancer, right acute Toney h 2024 8:18am Breast cancer, left breast 2020 chronic January 08, 2025 8:18am Breast cancer, right acute Toney h 2024 11:17am Breast cancer, left breast 2020 chronic January 15, 2025 11:17am Breast cancer, right acute Toney h 2024 10:18am Breast cancer, left breast 2020 chronic January 22, 2025 10:18am Breast cancer, left breast 2020 chronic January 23, 2025 10:15am Breast cancer, right acute Toney h 2024 10:09am Breast cancer, left breast 2020 chronic January 27, 2025 10:09am HER2-positive carcinoma of breast acute February 07, 2025 10:06am Breast cancer, left breast 2020 chronic February 13, 2025 9:46am Breast cancer, left breast 2020 chronic March 06, 2025 10:05am Breast cancer, right acute March 06, 2025 10:05am Breast cancer, left breast 2020 chronic March 06, 2025 10:05am Breast cancer, left breast 2020 chronic March 27, 2025 9:59am Breast cancer, left breast 2020 chronic April 17, 2025 10:38am [facility] Work Phone: [phone]) 830-1893592947-09-1533 Evaluation note* Diagnosis Onset Date Resolution Status Admit Date Breast cancer, left breast 2020 chronic November 28, 2024 9:46am Breast cancer, left breast 2020 chronic December 05, 2024 9:49am Encounter for chemotherapy management acute December 12 9:21am Encounter for monoclonal antibody treatment for malignancy acute December 12 9:21am Breast cancer, left breast 2020 chronic December 12, 2024 9:21am Breast cancer, right acute Febr 2024 11:04am Breast cancer, left breast 2020 chronic December 26, 2024 11:04am Breast cancer, left breast 2020 chronic January 02, 2025 9:07am Breast cancer, right acute Toney h 2024 8:18am Breast cancer, left breast 2020 chronic January 08, 2025 8:18am Breast cancer, right acute Toney h 2024 11:17am Breast cancer, left breast 2020 chronic January 15, 2025 11:17am Breast cancer, right acute Toney h 2024 10:18am Breast cancer, left breast 2020 chronic January 22, 2025 10:18am Breast cancer, left breast 2020 chronic January 23, 2025 10:15am Breast cancer, right acute Toney h 2024 10:09am Breast cancer, left breast 2020 chronic January 27, 2025 10:09am HER2-positive carcinoma of breast acute February 07, 2025 10:06am Breast cancer, left breast 2020 chronic February 13, 2025 9:46am Breast cancer, left breast 2020 chronic March 06, 2025 10:05am Breast cancer, right acute March 06, 2025 10:05am Breast cancer, left breast 2020 chronic March 06, 2025 10:05am Breast cancer, left breast 2020 chronic March 27, 2025 9:59am [facility] Work Phone: 1(631) 209-557411-14-2024 Evaluation note* Diagnosis Onset Date Resolution Status Admit Date Drug induced neutropenia acute September 12, 2024 8:22am Encounter for chemotherapy management acute September 12, 024 8:22am Breast cancer, left breast 2020 chronic September 12, 2024 8:22am Suture reaction acute September 12, 2024 10:16am Acid reflux acute August 8:59am Drug induced neutropenia acute September 19, 2024 8:59am Encounter for chemotherapy management acute September 19 024 8:59am Breast cancer, left breast 2020 chronic September 19, 2024 8:59am Breast cancer, left breast 2020 chronic September 25, 2024 8:22am Drug induced neutropenia acute October 03, 2024 9:02am Encounter for chemotherapy management acute October 03 9:02am Breast cancer, left breast 2020 chronic October 03, 2024 9:02am Breast cancer, right acute Dece mber 2023 9:13am Breast cancer, left breast 2020 chronic October 07, 2024 9:13am Breast cancer, left breast 2020 chronic October 10, 2024 8:54am Encounter for chemotherapy management acute October 17 8:59am Hypokalemia acute September 8:59am Breast cancer, left breast 2020 chronic October 17, 2024 8:59am Encounter for chemotherapy management acute October 31 8:54am Hypokalemia acute October 31, 2024 8:54am Breast cancer, left breast 2020 chronic October 31, 2024 8:54am Breast cancer, left breast 2020 chronic November 14, 2024 9:50am Heart palpitations acute 2024 10:41am HER2-positive carcinoma of breast acute November 15 10:41am Breast cancer, left breast 2020 chronic November 28, 2024 9:46am Breast cancer, left breast 2020 chronic December 05, 2024 9:49am Encounter for chemotherapy management acute December 12 9:21am Encounter for monoclonal antibody treatment for malignancy acute December 12 9:21am Breast cancer, left breast 2020 chronic December 12, 2024 9:21am Breast cancer, right acute Febr uary 2024 11:04am Breast cancer, left breast 2020 chronic December 26, 2024 11:04am Breast cancer, left breast 2020 chronic January 02, 2025 9:07am Breast cancer, right acute 2024 8:18am Breast cancer, left breast 2020 chronic January 08, 2025 8:18am [facility] Work Phone: 1([phone]) 854-428606-28-2024 History of Present illness Narrative* Kristina Mcginnis MD - 04/26/2024 8:00 AM EDT Subjective Reason for Visit: Reba Beckford is an 73 y.o. female here for a Medicare Wellness visit. Past Medical, Surgical, and Family History reviewed and updated in chart. Reviewed all medications by prescribing practitioner or clinical pharmacist (such as prescriptions,OTCs, herbal therapies and supplements) and documented in the medical record. HPI Since the last office visit there have been no interval operations, hospitalizations, important illnesses or injuries. Rad onc heme/onc- for br cancer. Mmg in May now 3 yrsout Fall on ice running to catch sury Tob-0 alc -0 ililicit-0, reg exercise, Patient Care Team: Kristina Mcginnis MD as PCP - General Kristina Mcginnis MD as PCP - [employer] Medicare Advantage PCP Review of Systems General-no fatigue weight to within 10 pounds ENT no problems with vision swallowing Cardiac no chest pains palpitations change in exercise tolerance or capacity Pulmonary no cough shortness of breath GI no heartburn or abdominal pain Musculoskeletal no joint pains Objective Vitals: BP 130/80 Pulse 68 Ht 1.727 m (5' 8) Wt 83.1 kg (183 lb 1.6 oz) SpO2 98% BMI 27.84 kg/m Physical Exam General: Alert, No acute distress. Appears stated age Eye: Pupils are equal, round and reactive to light, Extraocular movements are intact, Normal conjunctiva. Neck: Supple, Non-tender, No carotid bruit, No jugular venous distention, No lymphadenopathy, No thyromegaly. Respiratory: Lungs are clear to auscultation, Respirations are non-labored, Breath sounds are equal. Cardiovascular: Normal rate, Regular rhythm, No murmur. Gastrointestinal: Soft, Non-tender, No organomegaly. No solid or pulsatile mass Integumentary: Warm, Dry. No concerning lesions on exposed areas Neurologic: Alert, Oriented. Gross and fine motor intact, CN 2-12 intact Psychiatric: Cooperative, Appropriate mood & affect. Assessment/Plan Problem List Items Addressed This Visit Medicare annual wellness visit, subsequent Other Visit Diagnoses Routine general medical examination at health care facility - Primary Patient was identified as a fall risk. Risk prevention instructions provided. [facility] Work Phone: [phone]) 894-517106-28-2024 Instructions* Patient Instructions* Kristina Mcginnis MD - 04/26/2024 8:00 AM EDT Ways to Help Prevent Falls at Home Quick Tips ? Ask for help if you need it. Most people want to help! ? Get up slowly after sitting or laying down ? Wear a medical alert device or keep cell phone in your pocket ? Use night lights, especially areas near a bathroom ? Keep the items you use often within reach on a small stool or end table ? Use an assistive device such as walker or cane, as directed by provider/physical therapy ? Use a non-slip mat and grab bars in your bathroom. Look for home health sections for best options Other Areas to Focus On ? Exercise and nutrition: Regular exercise or taking a falls prevention class are great ways improve strength and balance. Don t forget to stay hydrated and bring a snack! ? Medicine side effects: Some medicines can make you sleepy or dizzy, which could cause a fall. Askyour healthcare provider about the side effects your medicines could cause. Be sure to let them know if you take any vitamins or supplements as well. ? Tripping hazards: Remove items you could trip on, such as loose mats, rugs, cords, and clutter. Wear closed toe shoes with rubber soles. ? Health and wellness: Get regular checkups with your healthcare provider, plus routine vision and hearing screenings. Talk with your healthcare provider about: o Your medicines and the possible side effects - bring them in a bag if that is easier! o Problems with balance or feeling dizzy o Ways to promote bone health, such as Vitamin D and calcium supplements o Questions or concerns about falling *Ask your healthcare team if you have questions [facility], 2021 documented in this encounter[facility] Work Phone: [phone]) 984-926001-29-2024 History of Present illness Narrative* Kristina Mcginnis MD - 11/27/2023 9:40 AM EST Subjective Patient ID: Reba Beckford is a 73 y.o. female who presents for Bronchitis (x1mo). HPI late dec felt flutterling in lower abd. Early Ronaldo had ST, rhinitis better in a week woth otc, then dev cough. Seen UC and mucinex and zpak. Had episode cnswtipation. Noted more borborrygma. Took softener then was feeling completely emptying. Last week x r4 night and had some blood once a day inbm at 4 am awakens woth fecal urgency. Now 5 days with no sx and back to usual. Blood on tissue only Colonoscopy within 2 years Review of Systems General-no fatigue weight to within 10 pounds ENT no problems with vision swallowing Cardiac no chest pains palpitations change in exercise tolerance or capacity Pulmonary no cough shortness of breath GI no heartburn or abdominal pain Objective BP 120/70 Pulse 80 Ht 1.727 m (5' 8) Wt 81.5 kg (179 lb 9.6 oz) SpO2 96% BMI 27.31 kg/m Physical Exam General: Alert, No acute distress. Appears stated age Eye: Pupils are equal, round and reactive to light, Extraocular movements are intact, Normal conjunctiva. Neck: Supple, Non-tender, No carotid bruit, No jugular venous distention, No lymphadenopathy, No thyromegaly. Respiratory: Lungs are clear to auscultation, Respirations are non-labored, Breath sounds are equal. Cardiovascular: Normal rate, Regular rhythm, No murmur. Gastrointestinal: Soft, Non-tender, No organomegaly. No solid or pulsatile mass Integumentary: Warm, Dry. No concerning lesions on exposed areas Neurologic: Alert, Oriented. Gross and fine motor intact, CN 2-12 intact Psychiatric: Cooperative, Appropriate mood & affect. Assessment/Plan Problem List Items Addressed This Visit ICD-10-CM Malignant neoplasm of upper-inner quadrant of left female breast, unspecified estrogen receptor status (CMS/HCC) C50.212 Other Visit Diagnoses Codes Acute cough - Primary R05.1 Relevant Medications predniSONE (Deltasone) 10 mg tablet amoxicillin-pot clavulanate (Augmentin) 875-125 mg tablet Patient was identified as a fall risk. Risk prevention instructions provided. documented in this encounterOhio[facility] Work Phone: [phone]) 830-127801-29-2024 Instructions* Patient Instructions* Kristina Mcginnis MD - 11/27/2023 9:40 AM EST Ways to Help Prevent Falls at Home Quick Tips ? Ask for help if you need it. Most people want to help! ? Get up slowly after sitting or laying down ? Wear a medical alert device or keep cell phone in your pocket ? Use night lights, especially areas near a bathroom ? Keep the items you use often within reach on a small stool or end table ? Use an assistive device such as walker or cane, as directed by provider/physical therapy ? Use a non-slip mat and grab bars in your bathroom. Look for home health sections for best options Other Areas to Focus On ? Exercise and nutrition: Regular exercise or taking a falls prevention class are great ways improve strength and balance. Don t forget to stay hydrated and bring a snack! ? Medicine side effects: Some medicines can make you sleepy or dizzy, which could cause a fall. Askyour healthcare provider about the side effects your medicines could cause. Be sure to let them know if you take any vitamins or supplements as well. ? Tripping hazards: Remove items you could trip on, such as loose mats, rugs, cords, and clutter. Wear closed toe shoes with rubber soles. ? Health and wellness: Get regular checkups with your healthcare provider, plus routine vision and hearing screenings. Talk with your healthcare provider about: o Your medicines and the possible side effects - bring them in a bag if that is easier! o Problems with balance or feeling dizzy o Ways to promote bone health, such as Vitamin D and calcium supplements o Questions or concerns about falling *Ask your healthcare team if you have questions [facility], 2021 documented in this encounter[facility] Work Phone: [phone]) 210-161401-19-2024 History of Present illness Narrative* RANI Hays - 11/17/2023 9:45 AM EST [facility] RANI Hays Visit Note - 11/17/2023 10:22 AM This note was generated with voice recognition software and may contain errors including spelling, grammar, syntax, and misrecognization of what was dictated. Patient: Reba Beckford, , 73 y.o., female PCP: Kristina Mcginnis MD ALLERGIES: Allergies Allergen Reactions Naproxen Hives CURRENT MEDICATIONS: Current Outpatient Medications Medication Instructions anastrozole (Arimidex) 1 mg tablet 1 tablet, oral, Daily azithromycin (Zithromax Z-Natalio) 250 mg tablet Take 2 tablets by mouth at once on day 1, then 1 tablet once a day on days 2-5. Take with a meal. calcium carbonate 600 mg calcium (1,500 mg) tablet 2 tablets, oral, Daily PAST MEDICAL HX: Patient Active Problem List Diagnosis Multinodular non-toxic goiter Palpitations Solitary fibrous tumor History of breast cancer Medicare annual wellness visit, subsequent SURGICAL HX: Past Surgical History: Procedure Laterality Date OTHER SURGICAL HISTORY 04/23/2020 Breast biopsy FAMILY HX: No pertinent history. SOCIAL HX: reports that she has never smoked. She has never used smokeless tobacco. Has a granddaughter. CHIEF COMPLAINT: Chief Complaint Patient presents with Cough Cough, chest congestion x 3 weeks HISTORY OF PRESENT ILLNESS: The history was obtained from patient. Reba is a 73 y.o. female, who presents with a chief complaint of nasal congestion/sinus pressure (white mucus), sore throat, sneezing, chills, low grade fevers, and a persistent, harsh cough (sometimes dry, sometimes productive with white phlegm) - sxs started 3 weeks ago. Denies any body aches, headaches, abdominal pain, chest pain, wheezing/shortness of breath, rashes, urinary symptoms, nausea/vomiting (aside from post-tussive nausea), and diarrhea. Denies any lightheadedness or dizziness; no changes in mental status. No swelling in legs. Appetite is normal; is able to eat and drink fluids without difficulty; denies lossof sense of taste or smell. Reports symptoms have been waxing and waning since onset - seemed to get worse again yesterday. Has been taking Zicam, Vicks, and doing salt water gargles without much relief; no other [id number]-[id number] medications or home remedies for symptom management. Her granddaughter was recently ill with pneumonia and RSV; no other known ill contacts. Has received the COVID vaccine x 3; has received this season's influenza vaccine . No known history of COVID infection. Is not asmoker. No known history of asthma/COPD/respiratory issues. REVIEW OF SYSTEMS: 10 systems reviewed negative with exception of history of present illness as listed above. TODAY'S VITALS: BP 139/84 (BP Location: Left arm, Patient Position: Sitting, BP Cuff Size: Small adult) Pulse 82 Temp 37.2 C (98.9 F) (Temporal) Resp 16 Ht 1.727 m (5' 8) Wt 81.6 kg (180 lb) SpO2 97% BMI 27.37 kg/m PHYSICAL EXAMINATION: General: Mildly ill-appearing, well nourished older female; alert and oriented, in no acute distress. + audible nasal congestion. Eyes: Pupils equal, round and reactive to light. No conjunctival erythema; no scleral icterus. HENT: + maxillary sinus tenderness, with audible nasal congestion. Bilat ear canals clear/unremarkable, but TMs with cloudy effusions bilat; no erythema, and not bulging. Nasal mucosa moderately boggy and edematous (R>L). Airway patent, oral mucosa moist. Posterior pharynx mildly injected but without vesicles or oropharyngeal exudate aside from PND. Uvula is midline. Trachea is midline. Managing oral secretions without difficulty. Neck: Supple. Tender, mobile anterior cervical lymphadenopathy bilat. Respiratory: Lungs are clear to auscultation; no wheezes, rhonchi, or rales. Respirations unlabored, Breath sounds are equal, Symmetrical chest wall expansion. Harsh, persistent, non-productive coughnoted. Cardiovascular: Normal rate, Regular rhythm. Normal S1S2. No m/r/g. No peripheral edema. Gastrointestinal: Soft, non-tender, non-distended; no palpable masses or organomegaly. Bowel soundsnormoactive. Musculoskeletal: Grossly normal Integumentary: [place], warm, dry, and intact. No rashes or skin discoloration appreciated. Neurologic: Alert and oriented, no focal deficits, no motor or sensory deficits. Cognition and Speech: Oriented, Speech clear and coherent. Psychiatric: Cooperative, Appropriate mood & affect. Medical Decision Making LABORATORY or RADIOLOGICAL IMAGING ORDERS/RESULTS: None. IMPRESSION/PLAN: Course: Worsening; stable 1. Acute bronchitis, unspecified organism 2. Acute sinusitis, recurrence not specified, unspecified location - azithromycin (Zithromax Z-Natalio) 250 mg tablet; Take 2 tablets by mouth at once on day 1, then 1 tablet once a day on days 2-5. Take with a meal. Dispense: 6 tablet; Refill: 0 Discussed COVID-19 testing today - pt declined, but encouraged precautionary measures. No red flagson exam today. Symptoms consistent with sinusitis/bronchitis, although reviewed other potential etiologies. Due to severity/duration of sxs, will begin treatment for bacterial infection today (Zithromax). Should finish full course of antibiotics, even if symptoms resolve more quickly. Instructed topush fluids, rest, and to use appropriate over the counter medications as needed for management of symptoms - discussed that Mucinex, vaporizer, and Saline Nasal [place] may be helpful. Reviewed red flags to monitor for, counseled on potential adverse reactions of treatments, expectations for improvement in sxs, and advised to follow-up with primary care provider in 3-5 days if symptoms persist, orsooner if worsening or if any additional concerns/red flags develop. Patient verbalized understanding and agreed with plan of care; questions were encouraged and answered. RANI Hays Advanced Practice Provider [facility] documented in this encounterOhio[facility] Work Phone: [phone]) [phone] History of Present illness Narrative* Kristina Mcginnis MD - 04/28/2023 8:00 AM EDT Subjective Reason for Visit: Reba Beckford is an 72 y.o. female here for a Medicare Wellness visit. Past Medical, Surgical, and Family History reviewed and updated in chart. Reviewed all medications by prescribing practitioner or clinical pharmacist (such as prescriptions,OTCs, herbal therapies and supplements) and documented in the medical record. HPI Oct 20 all clear on lung tumor. Breast ca, sees rad onc , and H/O. 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 Appears stated age Eye: Pupils are equal, round and reactive to light, Extraocular movements are intact, Normal conjunctiva. Neck: Supple, Non-tender, No carotid bruit, No jugular venous distention, No lymphadenopathy, No thyromegaly. Respiratory: Lungs are clear to auscultation, Respirations are non-labored, Breath sounds are equal. Cardiovascular: Normal rate, Regular rhythm, No murmur. Gastrointestinal: Soft, Non-tender, No organomegaly. No solid or pulsatile mass Integumentary: Warm, Dry. No concerning lesions on exposed areas Neurologic: Alert, Oriented. Gross and fine motor intact, CN 2-12 intact Psychiatric: Cooperative, Appropriate mood & affect. Assessment/Plan Problem List Items Addressed This Visit Health Encounters Medicare annual wellness visit, subsequent - Primary Relevant Orders Follow Up In Primary Care - Established Other Visit Diagnoses Routine general medical examination at health care facility documented in this encounterOhio[facility] Work Phone: 1([phone]) 858-950112-20-2022 History of Present illness Narrative* Porsha Hernandez APRN-[place] - 10/18/2022 12:30 PM EST PROGRESS NOTE CC: Chief Complaint Patient presents with Follow-up Denies cough or SOB, denies pain HPI: Reba Beckford is a 71 y.o. female who is status post left video-assisted pleural biopsy, leftmini-thoracotomy left lower lobe wedge resection for solitary fibrous tumor on 10/08/21. 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 She presents today with a [address] chest without contrast and has no major changesin her past medical history. Oncology History Solitary fibrous tumor 08/17/2021 Initial Diagnosis Left lower lung mass, CT guided biopsy ([place]): solitary fibrous tumor 10/08/2021 Surgery Review of Systems Negative for fevers, chills, fatigue, weight loss, SOB, ALEXANDER, cough, hemoptysis, or pain. Physical Exam BP 180/84 (BP Location: Right arm, BP Position: Sitting) Pulse 61 Temp 97.8 F (36.6 C) (Oral) Resp 14 Wt 81.4 kg (179 lb 8 oz) SpO2 96% BMI 27.29 kg/m Smoking Status Never HEART: regular rate and rhythm. No murmurs, rubs or gallops. LUNGS: Breathing non-labored, lungs clear. LYMPH NODES: No cervical or supraclavicular lymphadenopathy is noted. Imaging Upon my personal review, her CT chest appears stable, with no acute abnormality noted. The final radiologic interpretation will be reviewed to confirm stability, and the patient will be notified of any changes. Assessment/Plan: 71 y.o. female who is status post left video-assisted pleural biopsy, left mini- thoracotomy left lower lobe wedge resection for solitary fibrous tumor on 10/08/21. 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 She presents today with a [address] chest without contrast and has no major changes in her past medical history 1. Patient seen and evaluated by myself and Dr. Andres, all relevant images and labs reviewed 2. CT images appear stable, pending final radiologic read the patient will follow up with thoracic surgery on a PRN basis. RANI Grewal #[id number] * Martha Andres MD - 10/18/2022 12:30 PM EST Thoracic Surgery Attending I saw and independently examined the patient. I agree with the history of present illness, past medical history, family history, social history, medication list, and allergies as listed. Independent review of labs and radiographs, as well as review medical records, confirm the findings noted below,I agree with the assessment and plan as noted below. I have reviewed the note and made edits as neccessary. Ms. Beckford is a 72 year old woman who presents for follow up after resection of a large solitary fibrous tumor of the right chest. She has recovered well and has occasional discomfort around her incisions. Her CT scan shows no evidence of recurrence or metastatic disease. We discussed the nature of the lesion and the benign behavior. In the absence of any growth at one year, she may follow up on an as needed basis. The plan was developed mutually at the time of the clinic visit. The nurse practitioner/physician support assistant and I have spoken with the patient and provided written and verbal instructions for the patient. The PRANAY note has been reviewed and I agree with the assessment and plan. Follow-up arrangements were made prior to the patient being discharged from the clinic. Martha Andres MD documented in this [facility]04-21-2022 History of Present illness Narrative* Ofelia Charles MD - 02/17/2022 2:00 PM EDT Reba Beckford is a 71 y.o. female who presents to the [facility], Clinical Cancer Genetics clinic today for consultation regarding her personal and family history of cancer. She is seen in conjunction with Tarik Holguin [facility]. History of Present Illness: Chief Complaint Patient presents with Genetic Risk Assessment Reba Beckford is a 71 y.o. female who was treated for stage IA left breast cancer last year. The tumor was Er/KY positive and was treated with breast conservation followed by radiation therapy. She is currently on anastrozole. She also had a solitary fibrous tumor of her left lung removed. She hashad a number of colonoscopies and has had a total of 2 polyps. Her family history is significant for breast cancer in 2 sisters at ages 58 and 73, her mother at age 56, 2 maternal cousins, and a paternal aunt. She notes ovarian cancer in her paternal grandmotherand pancreatic cancer in a maternal cousin. There is also colon cancer in 2 paternal uncles and herbrother. Her niece had stomach cancer at age 62. Clinical Care Team: -Referring Provider for today's consult: Arturo Olivas MB* -Primary Care Provider: Kristina Mcginnis Medical/Surgical History: She has a past medical history of Arrhythmia, History of cancer, and History of radiation therapy. She has no past medical history of Asthma, Bleeding disorder, CAD (coronary artery disease), COPD (chronic obstructive pulmonary disease), Depression, Diabetes mellitus, Essential hypertension, benign, Hyperlipidemia, Hyperthyroidism, Hypothyroidism, Liver disease, OR (myocardial infarction), Migraine, ANEL (obstructive sleep apnea), Pacemaker, Renal disease, Seizure, or Stroke. She has a past surgical history that includes breast lumpectomy (Left, 06/2021); breast lumpectomy (Right, ); thoracotomy w/ wedge resection initial (Left, 10/08/2021); thoracoscopy lung pleura diagnostic (Left, 10/08/2021); bronchoscopy flexible diagnostic (N/A, 10/08/2021); and thoracotomy exploration (Left, 10/08/2021). Family/Social History: Her Family History Problem Relation Age of Onset Breast Cancer Mother 56 Cancer- Other Father skin and throat cancer Breast Cancer Sister 73 Other - Specify Sister 71 lymphoma Breast Cancer Sister 58 Cancer- Other Brother 45 leukemia Cancer Brother 58 esophageal Colorectal Cancer Brother 62 Other - Specify Brother amyloidosis Ovarian Cancer Paternal Grandmother 77 Breast Cancer Maternal Cousin 55 Breast Cancer Maternal Cousin Cancer- Other Maternal Cousin pancreatic cancer Breast Cancer Paternal Aunt 48 Colon Cancer Paternal Uncle 46 Colon Cancer Paternal Uncle 56 She Social History Socioeconomic History Marital status: Spouse name: Not on file Number of children: Not on file Years of education: Not on file Highest education level: Not on file Occupational History Not on file Tobacco Use Smoking status: Never Smoker Smokeless tobacco: Never Used Vaping Use Vaping Use: Never used Substance and Sexual Activity Alcohol use: Yes Comment: social and rare Drug use: Never Sexual activity: Not on file Other Topics Concern Not on file Social History Narrative Not on file Social Determinants of Health Financial Resource Strain: Low Risk Difficulty of Paying Living Expenses: Not hard at all Food Insecurity: No Food Insecurity Worried About Running Out of Food in the Last Year: Never true Ran Out of Food in the Last Year: Never true Transportation Needs: No Transportation Needs Lack of Transportation (Medical): No Lack of Transportation (Non-Medical): No Physical Activity: Not on file Stress: Not on file Social Connections: Not on file Intimate Partner Violence: Not on file Housing Stability: Unknown Unable to Pay for Housing in the Last Year: No Number of Places Lived in the Last Year: Not on file Unstable Housing in the Last Year: No Medications/Allergies/Immunizations: Her current medication(s) include has a current medication list which includes the following prescription(s): acetaminophen 325 MG tablet, anastrozole 1 MG tablet, bisacodyl 10 MG Suppository suppository, docusate 100 MG capsule, senna 17.2 MG tablet, and traMADol 50 MG tablet. Allergies: Naproxen, Immunizations: Immunization History Administered Date(s) Administered COVID-19 vaccine, mRNA, Moderna 0.5 ML 01/06/2021, 02/04/2021 COVID-19 vaccine, mRNA, Moderna, booster 0.25 ML 09/16/2021 Influenza, High-dose Seasonal, Quadrivalent, Preservative Free 06/23/2021 Assessment & Plan: Assessment and Plan: Reba Beckford is a 71 y.o. female who presented today with a personal and family history of breastcancer and a family history of multiple other cancers. Differential Diagnosis and Counseling: I reviewed the components of a genetic risk assessment with the patient and discussed her contributing risks in each area. I reviewed the differences between sporadic, familial, and hereditary types of breast cancers. I also discussed the differential diagnosis of hereditary breast cancer with her ( Hereditary Breast Ovarian Cancer syndrome (HBOC), PALB2 syndrome, and other moderate risk genes). We discussed that given her age, she could have a sporadic cancer even if there is a hereditary condition in the family. We discussed HBOC in detail, the patient's risks of other cancers or health problems. We discussed different possible outcomes of genetic testing and the ramifications these could have on risk assessment and ability to provide information for the patient and her family. We discussed management changes which would be recommended based on the outcome of genetic test results. Lastly, we discussed testing options and costs, and insurance issues. We discussed disease specificand more general panels. Given the varied cancer diagnoses in her family, testing with a more general panel is reasonable. She was interested in proceeding with testing. A blood sample was obtained and sent for analysis. Results will be shared with her when available. The duration of the visit was about 30 minutes including review of records, counseling, and documentation. [facility] Diagnosis History of breast cancer- Primary Personal history of malignant neoplasm of breast Family history of breast cancer Family history of malignant neoplasm of breast [facility]* Diagnosis Onset Date Resolution Status Breast cancer, left breast 2020 a cute Benign neoplasm of left lung chronic Breast cancer, left breast 2020 a cute Breast cancer, left breast 2020 a cute Benign neoplasm of left lung chronic Breast cancer, left breast 2020 a [facility] Work Phone: Evaluation note* Diagnosis Solitary fibrous tumor [facility]* Diagnosis Lung mass- Primary Swelling, mass, or lump in chest [facility]* Diagnosis Medicare annual wellness visit, subsequent- Primary Routine general medical examination at health care facility Routine general medical examination at a health care facility documented in this encounter [facility] Work Phone: Evaluation note* Diagnosis Onset Date Resolution Status Breast cancer, left breast 2020 a cute Benign neoplasm of left lung chronic Breast cancer, left breast 2020 a cute Benign neoplasm of left lung chronic Breast cancer, left breast 2020 a [facility] Work Phone: Evaluation note* Diagnosis Onset Date Resolution Status Breast cancer, left breast 2020 a cute Benign neoplasm of left lung chronic Breast cancer, left breast 2020 a [facility] Work Phone: Evaluation note* Diagnosis Acute bronchitis, unspecified organism- Primary Acute sinusitis, recurrence not specified, unspecified location documented in this encounter [facility] Work Phone: Evaluation note* Diagnosis Acute cough- Primary Malignant neoplasm of upper-inner quadrant of left female breast, unspecified estrogen receptor status (CMS/HCC) documented in this encounter [facility] Work Phone: Evaluation note* Diagnosis Routine general medical examination at [facility]- Primary Routine general medical examination at a health [facility] Medicare annual wellness visit, subsequent documented in this encounter [facility] Work Phone: Evaluation note* Diagnosis [facility] Primary [facility] Medicare annual wellness visit, subsequent documented in this encounter [facility] Work Phone: [phone] note* Diagnosis [facility]- Primary Routine [facility] Medicare annual wellness visit, subsequent Swelling of right upper eyelid- Primary documented in this encounter [facility] Work Phone: [phone] note* Diagnosis [facility]- Primary Routine [facility] Medicare annual wellness visit, subsequent Pain in right ankle and joints of right foot documented in this encounter [facility] Work Phone: [phone] note* Diagnosis [facility]- Primary Routine [facility] Medicare annual wellness visit, subsequent Pain in right ankle and joints of right foot documented in this encounter [facility] Work Phone: Evaluation note* Diagnosis Routine [facility]- Primary Routine [facility] Medicare annual wellness visit, subsequent Viral URI with cough- Primary documented in this encounter [facility] Work Phone: [phone] note* Diagnosis [facility]- Primary Routine [facility] Medicare annual wellness visit, subsequent Pain in right ankle and joints of right foot documented in this encounter [facility] Work Phone: Evaluation note* Diagnosis Routine general medical examination at [facility]- Primary Routine [facility] Medicare annual wellness visit, subsequent Pain in right ankle and joints of right foot documented in this encounter [facility] Work Phone: History of Present illness Narrative* The patient is being seen for the subsequent annual wellness visit. * Past Medical, Surgical and Family History: reviewed and updated in chart. * Medications and Supplements: Medications and supplements, including calcium and vitamins reviewed and updated in chart. * No, the patient is not using opioids. * Health Risk Assessment:. Paper HRA completed by patient and scanned into chart. * Patient Self Assessment of Health Status: excellent. * Tobacco use: Non-User * Alcohol use: Non-User, As noted in social history * Illicit drug use: Non-User * Current diet: well balanced diet. * Exercise Frequency: regularly. * Depression/Suicide Screening: . * Hearing Impairment: none. * Cognitive Impairment: No cognitive impairment observed. * Bathing: performs independently. * Dressing: performs independently. * Walking: performs independently. * Toileting: performs independently. * Feeding: performs independently. * Personal Hygiene: performs independently. * Bowels: continent. * Bladder: continent. * Managing Finances: performs independently. * Shopping: performs independently. * Managing Medications: performs independently. * Housework / Basic Home Maintenance: performs independently. * Handling Transportation: performs independently. * Preparing Meals: performs independently. * Using the Telephone/ Communication Devices: performs independently. * Falls Risk Screening:. REBA has not fallen in the last 6 months. * Home safety risk factors: none. * Advance directives:. Patient has living will. Patient has healthcare POA. * Since the last office visit there have been no interval operations, hospitalizations, important illnesses or injuries. * had fall in august, * onno meds * colon in * needs mmg and lab [facility] Work Phone: History of Present illness Narrative* felt hot, clammy and heart racing this 9 am, yet she walked , exercises and used inversion table, went to daughters at 11 am and 77/57, and pulse was irreg irreg. at 1130 back in regular rhyuthm. 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 * chadsvasc2 of 2. [employer] [facility] Work Phone: History of Present illness Narrative* The patient is being seen for the subsequent annual wellness visit. * Past Medical, Surgical and Family History: reviewed and updated in chart. * Interval History: Patient has had 1 previous hospitalizations. * Medications and Supplements: Review of all medications by a prescribing practitioner or clinical pharmacist (such as prescriptions, OTCs, herbal therapies and supplements) documented in the medical record. * No, the patient is not using opioids. * Health Risk Assessment:. Paper HRA completed by patient and scanned into chart. * Patient Self Assessment of Health Status: good. * Tobacco use: Non-User * Alcohol use: Non-User, As noted in social history * Illicit drug use: Non-User * Current diet: well balanced diet. * Exercise Frequency: regularly. * Depression/Suicide Screening: . * During the past 2 weeks, the patient has not felt down, depressed or hopeless. * During the past 2 weeks, the patient has not felt little interest or pleasure in doing things. * Hearing Impairment: none. * Cognitive Impairment: No cognitive impairment observed. * Bathing: performs independently. * Dressing: performs independently. * Walking: performs independently. * Toileting: performs independently. * Feeding: performs independently. * Personal Hygiene: performs independently. * Bowels: continent. * Bladder: continent. * Managing Finances: performs independently. * Shopping: performs independently. * Managing Medications: performs independently. * Housework / Basic Home Maintenance: performs independently. * Handling Transportation: performs independently. * Preparing Meals: performs independently. * Using the Telephone/ Communication Devices: performs independently. * Falls Risk Screening:. REBA has not fallen in the last 6 months. * Home safety risk factors: none. * Advance directives:. Advance Care Planning discussed and documented in the medical record, patient did not wish or was not able to name a surrogate decision maker or provide an advance care plan. Patient has living will. Patient has healthcare POA. * had br ca and on aromatsse and had benign LLL lung mass removed * otherwise Since the last office visit there have been no interval operations, hospitalizations, important illnesses or injuries. * heart monitor is negative * recc shingrix * chol is borderline at 187 and no risk, consider card calc score for risk strat. * Multinodular goiter palpates normally [facility] Work Phone: History of Present illness Narrative* The patient is being seen for the subsequent annual wellness visit. * Past Medical, Surgical and Family History: reviewed and updated in chart. * Interval History: Patient has had 1 previous hospitalizations. * Medications and Supplements: Review of all medications by a prescribing practitioner or clinical pharmacist (such as prescriptions, OTCs, herbal therapies and supplements) documented in the medical record. * No, the patient is not using opioids. * Health Risk Assessment:. Paper HRA completed by patient and scanned into chart. * Patient Self Assessment of Health Status: good. * Tobacco use: Non-User * Alcohol use: Non-User, As noted in social history * Illicit drug use: Non-User * Current diet: well balanced diet. * Exercise Frequency: regularly. * Depression/Suicide Screening: . * During the past 2 weeks, the patient has not felt down, depressed or hopeless. * During the past 2 weeks, the patient has not felt little interest or pleasure in doing things. * Hearing Impairment: none. * Cognitive Impairment: No cognitive impairment observed. * Bathing: performs independently. * Dressing: performs independently. * Walking: performs independently. * Toileting: performs independently. * Feeding: performs independently. * Personal Hygiene: performs independently. * Bowels: continent. * Bladder: continent. * Managing Finances: performs independently. * Shopping: performs independently. * Managing Medications: performs independently. * Housework / Basic Home Maintenance: performs independently. * Handling Transportation: performs independently. * Preparing Meals: performs independently. * Using the Telephone/ Communication Devices: performs independently. * Falls Risk Screening:. REBA has not fallen in the last 6 months. * Home safety risk factors: none. * Advance directives:. Advance Care Planning discussed and documented in the medical record, patient did not wish or was not able to name a surrogate decision maker or provide an advance care plan. Patient has living will. Patient has healthcare POA. * had br ca and on aromatsse and had benign LLL lung mass removed * otherwise Since the last office visit there have been no interval operations, hospitalizations, important illnesses or injuries. * heart monitor is negative * recc shingrix * chol is borderline at 187 and no risk, consider card calc score for risk strat. * Multinodular goiter palpates normally [facility] Work Phone: Progress note Author Arturo Olivas [facility] Note Date/Time July 31, 2025 11 :37am [facility] [place] [address] [place] [address] OFFICE VISIT Date of Service: 07/31/25 1110 MR#: [id number] Acct: [id number] Name: REBA BECKFORD Rep #: [id number] : 1950 From: Arturo sanchez MD Age/Sex: 74/F Location[place] [facility] Status: Signed HPI Subjective Date of Service 07/31/25 Chief Complaint breast cancer on treatment History of Present Illness 74-year-old female with a strong family history of breast cancer (mother and 2 sisters) in addition to colon cancer (brother), leukemia and esophageal cancer (brother) who was compliant with annual screening mammography . She has a remote history of right breast biopsy negative for cancer and past history of colon polyps. May 24, 2021 screening mammography: An ovoid mass in the left breast new in comparison to 12/19/2019. June 03, 2021 ultrasonography, at 10:00 mass measuring 5 mm in maximum diameter. 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 July 08, 2021 left breast partial mastectomy with sentinel lymph node biopsy: MICROSCOPIC DIAGNOSISA. Left axillary sentinel lymph nodes, biopsy:Three out ofthree lymph nodes negative for metastatic carcinoma.B. Left breast mass, needlelocalization lumpectomy:Invasive ductal carcinoma.See cancer summary in the comment section.SJ:phuc 07/13/2021 COMMENTA. Immunohistochemistry ([id number]) supports the above diagnosis.B. BREAST CANCER SUMMARYProcedure ?lumpectomy withwire-guided localization Specimen laterality ?leftInvasive tumor:Tumor site ?upper inner quadrant as per EMRTumor size ?0.5 x 0.2 cm (measured microscopically)Histologic type ?invasive ductal carcinoma, not otherwise specifiedHistologic grade (Evelyn grade):Glandular/tubular differentiation score -3Nuclear pleomorphism score -3Mitotic count score - 2Overall grade ?grade 3(score of 8)Tumor focality ?single focus of invasive carcinomaDuctal carcinoma in situ ?not identified Tumor extension:Skin ?not presentNipple ?not applicableSkeletal muscle ?no skeletal muscle is presentMargins:Invasive carcinoma margin ?The invasive carcinoma is 0.5 cm away from closest inferior margin.Ductal carcinoma in situ margin ?not applicableRegional lymph nodes:Number of lymph nodes examined ?3Number of sentinel lymph nodes examined -3Number of lymph nodes with macrometastases, micrometastases or isolated tumor cells -0Treatment effect ?no known presurgical therapy.Lymphvascular invasion ?not identified Dermal lymphvascular invasion ?not applicableAdditional Pathologic Findings ?fibrocystic changes.Ancillary Studies: Previously performed at [facility] ([id number])ER: Positive (50%, moderate)KY: Positive (10%, moderate tostrong)[id number]: Equivocal (2+)Oga7ILSM AMAIRANI ?negative (non-amplified)Microcalcifications ?not identifiedClinical History -Please make reference to previous specimen from [facility] ([id number]) left breast, ultrasound-guided core needle biopsy with diagnosis of ?invasive ductal carcinoma, grade 2-3.?PATHOLOGIC STAGE: pT1a pN0(sn) pMx CT chest August 02, 2021: Was obtained when an abnormality in the left lung was seen on planning radiation therapy for the breast. IMPRESSION: 6.9 cm x 6.7 cm x 6.7 cm solid mass in the peripheral lateral aspect of the left lower lobe abutting the pleural surface. Postoperative changes in the left axillary region. Hepatic cysts. August 17, 2021 Left lower lung mass, CT-guided core biopsy:Solitary fibrous tumor. October 08, 2021 resection of left lower lobe lung mass at [facility]. June 12, 2024 screening mammogram: Right breast BIRADS Category 4: Suspicious- June 19, 2024 Right breast, upper outer quadrant microcalcification, stereotactic core biopsy: Invasive ductal carcinoma. Focal ductal carcinoma in situ ANTIBODY / CLONE RESULT E-Cad (ECH-6) REPEAT CK8 ([id number]) positive Calponin-1 (JA174X) negative * CK5-6 (D5 & 1684) negative * P40 (BC28) negative * P53 (DO-7) negative (null pattern) Ki-67 (30-9) positive, low 21% MORPHOMETRIC ANALYSIS ER (clone 6F11) 29% , weak intensity KY (clone 16/1E2) 0% Her-2Neu (clone CB11) 3+ July 11, 2024 right partial mastectomy with sentinel lymph node biopsy: MICROSCOPIC DIAGNOSIS A. [place] lymph node, biopsy: One lymph node, negative for metastatic carcinoma. See comment. B. Additional right sentinel lymph node, biopsy: Two out of two lymph nodes, negative for metastatic carcinoma. See comment. C. 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 See cancer summary in the comment section. D. New lateral margin: Negative for carcinoma. Focal fibrocystic changes. See comment. E. New medial margin: Negative for carcinoma. BREAST CANCER SUMMARY Procedure ? Partial mastectomy Specimen laterality - Right Invasive tumor: Tumor site ? Upper outer quadrant Tumor size ? 0.5 x 0.4cm (measured microscopically). Histologic type ? Invasive ductal carcinoma Histologic grade ([place] grade): Glandular/tubular differentiation score - 3 Nuclear pleomorphism score - 3 Mitotic count score - 1 Overall grade - grade 2 (score of 7) Tumor focality ? single focus of invasive carcinoma Ductal carcinoma in situ - Present Positive for extensive intraductal component (EIC). Size (extent) of DCIS ?. DCIS comprises ~70% of total tumor volume. Estimated size of DCIS - 0.7 x 0.4 cm largest focus, measured microscopically Number of blocks with DCIS - 2 Number of blocks examined ? 17 (specimen B, C & D) Architectural pattern ? [place] and solid Nuclear grade - grade 3 (high) Necrosis - present, central (expansive comedo necrosis) Lobular carcinoma in situ ? Not identified Tumor extension: Skin ? Not present Nipple ? Not applicable Skeletal muscle ? Present, not involved by tumor (specimen D) Margins: Margins are free of invasive carcinoma and ductal carcinoma in situ. Invasive carcinoma is 1.0 cm from the closest superior margin. (biopsy cavity present at the medial margin, however, no tumor is noted at the margin) new medial margin is also negative for carcinoma. Ductal carcinoma in situ is 0.5 cm away from the closest posterior margin. Regional lymph nodes: Number of lymph nodes examined - 3 Number of sentinel lymph nodes examined - 3 Number of lymph nodes with macrometastases, micrometastases or isolated tumor cells - 0 Treatment effect - no known presurgical therapy. Lymphvascular invasion ? Not identified Dermal lymphvascular invasion ? Not applicable Additional Pathologic Findings ? Changes consistent previous biopsy site. Fibrocystic changes and lobular involution. Ancillary Studies: Previously performed on same tumor ([id number] / [id number]) ER: positive (29%, weak intensity) KY: negative (0) Tcg9mor: positive (3+) Ki67: low, 21% Microcalcifications ? Present in non-neoplastic tissue and invasive carcinoma Clinical History ? please make reference to previous specimen [id number], right breast, stereotactic core biopsy with diagnosis of invasive ductal carcinoma and ductal carcinoma in situ. PATHOLOGIC STAGE: pT1a pN0(sn) pMx August 06, 2024 PET/CT: IMPRESSION: 1. Increase in radiopharmaceutical concentration superficially apparent in the right anterior chest wall-breast likely represents postoperative change. If neoplasm remains a diagnostic consideration, correlation with suspected pathologic sampling is recommended. 2. No other scintigraphic abnormalities are identified, there is no definitive scintigraphic evidence of distant metastatic disease. Treatment summary and response: * Left breast partial mastectomy with sentinel lymph node: July 08, 2021. Adjuvant hormonal therapy with aromatase inhibitor September 2021-May 2024 Adjuvant radiation therapy: 08/30/2021 ? 09/21/2021: received 4256 cGy of in 16 fractions to the left breast * Right breast July 11, 2024 right partial mastectomy with sentinel lymph node biopsy. August 29, 2024-November 2024 adjuvant Herceptin with weekly Taxol (12 doses) Adjuvant radiation to the right breast 01/06/2025- 01/27/2025 January 02, 2025 maintenance Herceptin Adjuvant hormonal therapy with tamoxifen January 2025- Interval History Ankle sprain April 2025 in orthopedic boot. [facility] Medical History Fractured fibula Pulmonary embolism DVT (deep venous thrombosis) Encounter for monoclonal antibody treatment for malignancy HER2-positive carcinoma of breast Hypokalemia Lymphedema of right upper extremity Acid reflux Drug induced neutropenia Encounter for chemotherapy management Encounter for education Post-menopausal Back pain Injury of back History of stress test History of irregular heartbeat COVID ER+ (estrogen receptor positive status) Wears glasses Cancer Easy bruising Lightheadedness Heartburn Non-smoker History of colonic polyps Breast cancer, left breast (~05/2021) Multinodular non-toxic goiter Surgical History Hx of partial mastectomy S/P lumpectomy, right breast History of lung surgery History of lumpectomy of left breast (~06/2021) Hx of tubal ligation History of colonoscopy (~03/2017) History of left breast biopsy (~05/2021) History of right breast biopsy (~1980) Family History Brother Colon cancer Hypertension Cancer Leukemia Mother Breast cancer Sister Breast cancer Lymphoma Hypertension Aunt Breast cancer Social History household members: spouse Smoking Status: Never smoker second hand exposure: No alcohol intake: never substance use type: does not use caffeine: No lizbeth/christian: Jain seatbelt use: always do you feel safe at home: Yes ROS Constitutional Constitutional: Reports systems reviewed and no addt'l complaints, except as documented; Denies fever(s) or weight loss Eyes Eyes: Reports systems reviewed and no addt'l complaints, except as documented ENT HEENT: Reports systems reviewed and no addt'l complaints, except as documented; Denies mouth lesions Cardiovascular Cardiovascular: Reports systems reviewed and no addt'l complaints, except as documented, edema and other Details: Right lower extremity mild painless edema noted by end of day of being on feet ; Denies chest pain with activity Respiratory/Chest Respiratory/Chest: Reports systems reviewed and no addt'l complaints, except as documented; Denies cough, dyspnea or hemoptysis Gastrointestinal Gastrointestinal: Reports systems reviewed and no addt'l complaints, except as documented; Denies abdominal pain, change in bowel habits, hematochezia or melena Genitourinary Genitourinary: Reports systems reviewed and no addt'l complaints, except as documented; Denies hematuria Musculoskeletal Musculoskeletal: Reports systems reviewed and no addt'l complaints, except as documented; Denies back pain Integumentary Integumentary: Reports systems reviewed and no addt'l complaints, except as documented, new lesions and other Details: None itchy lesions over the extremities and stomach area, first lesion was prior to starting Eliquis. Neurologic Neurologic: Reports systems reviewed and no addt'l complaints, except as documented; Denies focal weakness Psychiatric Psychiatric: Reports systems reviewed and no addt'l complaints, except as documented Endocrine Endocrinology: Reports systems reviewed and no addt'l complaints, except as documented Hematologic/Lymphatic Hematologic/Lymphatic: Reports systems reviewed and no addt'l complaints, exceptas documented Allergic/Immunologic Allergic/Immunologic: Reports systems reviewed and no addt'l complaints, except as documented Intake Vital Signs 05/08/25 09:46 07/31/25 11:11 Height 5 ft 8 in 5 ft 8 in Weight: 81.703 kg BMI 27.3 BP 152/77 H Blood Pressure Location Lt brachial Position Sitting Respiration 18 Pulse 60 Pulse Source Monitor Temp 98.0 F Temperature Source Temporal Artery Pulse Oximetry (%) 98 Oxygen Delivery Method room air Intake Allergies naproxen (From Naprosyn) Adverse Reaction (Severe, Verified 07/31/25 11:14) Hives tamoxifen Adverse Reaction (Unknown, Verified 07/31/25 11:14) DVT Medications ?Medication ?Instructions ?Recorded ?Confirmed ?Type calcium 600 mg (as 1 cap PO BID 11/08/21 History carbonate)-vitamin D3 12.5 mcg (500 unit) capsule (Calcium with Vit D3) lidocaine-prilocaine 2.5 %-2.5 % 1 applic topical ONCE PRN port 08/19/24 07/31/25 Rx topical cream access 30 days #30 grams ondansetron 8 mg disintegrating 8 mg PO Q8H PRN nausea and 08/19/24 07/31/25 Rx tablet vomiting #30 tabs apixaban 5 mg tablet (Eliquis) 5 mg PO BID 30 days #60 tabs 07/31/25 07/31/25 Rx Have you fallen in the past year?: Yes Central Venous Access Central Venous Access: Yes Port/PICC: Port CBC, CMP July 31, 2025 Exam Physical Exam Narrative ECOG 1 Const alert, oriented x3 and no apparent distress General Appearance: cooperative and comfortable HEENT normocephalic Face and Sinus: normal facial exam Mouth: oral and palatal mucosa normal Eyes General Eye: normal appearance of both eyes Neck no lymphadenopathy and no JVD Resp clear to auscultation bilaterally Cardio regular rate and regular rhythm Jugular Venous Distention: Negative for JVD GI soft to palpation, non-tender and non-distended; Negative for hepatosplenomegaly Back/Spine no thoracic nor lumbar tenderness Extremity Extremity Narrative: Right ankle in orthopedic boot General Extremity: edema right lower extremity moderate Skin no rashes or lesions noted Neuro oriented x3, CN's II-XII intact bilaterally and no focal motor deficits Coordination / Balance: udgbky-hs-[id number] test normal Speech: speech normal Gait (Neuro): normal gait Psych mental status grossly normal Coding Level of Care Code Off vis,est,level 4 Exam Problem Focused Diagnoses Malignant neoplasm of upper-inner quadrant of left breast in female, estrogen receptor positive C50.212; Z17.0 Breast location: upper inner quadrant of breast Estrogen receptor status: positive Patient sex: female Acute deep vein thrombosis (DVT) of right lower extremity, unspecified vein I82.401 DVT location: lower extremity Affected thrombotic vein of extremity: unspecified vein of extremity Chronicity: acute Laterality: right Pulmonary embolism I26.99 Assessment and Plan Assessment and Plan (1) Breast cancer, left breast: Status: Chronic Qualifiers: Breast location: upper inner quadrant of breast Estrogen receptor status: positive Patient sex: female Qualified Code(s): C50.212 - Malignant neoplasm of upper- inner quadrant of left female breast; Z17.0 - Estrogen receptor positive status [ER+] (2) DVT (deep venous thrombosis): Status: Acute Qualifiers: DVT location: lower extremity Affected thrombotic vein of extremity: unspecified vein of extremity Chronicity: acute Laterality: right Qualified Code(s): I82.401 - Acute embolism and thrombosis of unspecified deep veins of right lower extremity Comment: While on tamoxifen and limited activity due to fracture right fibula May 2025 (3) Pulmonary embolism: Status: Acute Comment: While on tamoxifen and limited activity due to fracture right fibula May 2025 Medications: Changed From apixaban (Eliquis) 5 mg PO BID I26. - Other pulmonary embolism without acute cor pulmonale To apixaban (Eliquis) 5 mg PO BID 60 tabs 0RF 30 days I26. - Other pulmonary embolism without acute cor pulmonale Plan 74-year-old female with bilateral breast cancers: 1. 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 Carcinoma is ER positive (50%, moderate) KY positive (10%, moderate to strong) HER-2 equivocal 2+ by IHC, negative by FISH. Cancer was detected on screening mammography measuring 5 mm in maximum diameter . Patient is status post left partial mastectomy with sentinel lymph node biopsy June 2021, received adjuvant radiation August 2021. Started adjuvant hormonal therapy with an aromatase inhibitor September 2021. 2. Right breast cancer: 2023 invasive ductal cancer; stage I (T1a, N0, M0). Cancer is ER positive (29%, weak) KY negative (0) HER2/asif overexpressed 3+ and Ki-67 low at 21%. Cancer was detected on screening mammography. Patient is status post right partial mastectomy with sentinel lymph node biopsy June 2024 while still on adjuvant hormonal therapy with Arimidex. PET/CT July 2024 showed no evidence of distant metastases. Started adjuvant systemic chemo immune therapy with weekly Taxol Herceptin August 29, 2024. After completion of 12 weeks of chemoimmunotherapy she started maintenance immunotherapy was trastuzumab and started adjuvant hormonal therapy with tamoxifen January 2025. While on tamoxifen she had an accidental injury to her right lower extremity, fractured the right fibula, was placed on orthopedic boot with limited activity. May 2025 confirmed to have developed right lower extremity proximal DVT complicated with pulmonary embolism. Was started on Eliquis and tamoxifen was discontinued. Patient has a family history of breast cancer (2 sisters and mother). Genetic testing was done at [facility] January 2022, no deleterious genetic mutation was identified. 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 Plan: Based on NCCN guidelines and up-to-date review of treatment of breast cancer. 1-concluded 12 weeks of paclitaxel with Herceptin and is to conclude total 12 months of immunotherapy with trastuzumab. 2-discontinue adjuvant hormonal treatment with tamoxifen being partly involved (in addition to limited mobility from fracture right fibula) with right lower extremity proximal DVT and pulmonary embolism. Discussed and she did not wish to continue with tamoxifen and Eliquis concomitantly for a full course of adjuvant hormonal therapy. 3-patient will have serial evaluation of cardiac ejection fraction by echo every 3 months. Her last ejection fraction was normal at 55% March,. She is also followed in cardio oncology clinic including for her reported palpitations 4-started Eliquis on June 19, 2025 for provoked right lower extremity proximal DVT and pulmonary embolism. She will continue for at least 3 months and stop at the end now that she has resumed unrestricted ambulation and the orthopedic boot is off. Patient was seen, impression and plan discussed. Arturo Olivas MD Pattern Chart Writer, [facility] Divisions of Medical Oncology & Hematology Department of Internal Medicine [place] [id number] This note was generated using a voice recognition system software. Although it was reviewed by the author prior to finalization, it may still contain incorrect words, spelling, and punctuation that were not noted when reviewing prior to saving. If a clinically significant typo or inaccurately typed phrase is noted, please notify the author. Clinical Quality Measures Falls Risk Screening/Assistive Devices Have you fallen in the past year?: Yes 07/31/25 1137 <Electronically signed by Arturo mahoney MD> Date _ Arturo Olivas MD Cosigner Signature: Date (if applicable) CC: ~ [facility] Work Phone: Reason for referral (narrative)* Consultation (Routine) - Authorized Specialty Diagnoses / Procedures Referred By Contac t Referred To Contact Primary Care Diagnoses Medicare annual wellness visit, subsequent Procedures Follow Up In Primary Care - Established Kristina Mcginnis MD [address] [place] [address] Referral ID Status Reason Start Date Expiration Date V isits Requested Visits Authorized [id number] Authorized 04/28/2023 10/25/2023 1 1 [facility] Work Phone: Reason for referral (narrative)* Consultation (Routine) - Authorized Specialty Diagnoses / Procedures Referred By Contac t Referred To Contact Primary Care Diagnoses Medicare annual wellness visit, subsequent Procedures Follow Up In Primary Care - Established Kristina Mcginnis MD [address] [place] [phone] Referral ID Status Reason Start Date Expiration Date V isits Requested Visits Authorized [id number] Authorized 04/26/2024 04/26/2025 1 1 [facility] Work Phone: Reason for referral (narrative)No reason for referral information [facility] Work Phone: Reason for visit Narrative* Imaging (Routine) - Authorized Specialty Diagnoses / Procedures Referred By Contac t Referred To Contact Radiology Diagnoses Pain in right ankle and joints of right foot Procedures XR ankle right 3+ views Haven Zavala, DPM [address] [place] [id number] Phone: tel: fax: Referral ID Status Reason Start Date Expiration Date Visits Requested Visits Authorized [id number] Authorized Perform Procedure 05/16/2025 05/16/2026 1 1 [facility] Work Phone: Reason for visit Narrative* Imaging (Routine) - Authorized Specialty Diagnoses / Procedures Referred By Contac t Referred To Contact Radiology Diagnoses Pain in right ankle and joints of right foot Procedures XR ankle right 3+ views Haven Zavala, DPM [address] [place] [address] Phone: tel: fax: Referral ID Status Reason Start Date Expiration Date Visits Requested Visits Authorized [id number] Authorized Perform Procedure 06/13/2025 07/14/2026 1 1 [facility] Work Phone: Revfli for visit Narrative* Imaging (Routine) - Authorized Specialty Diagnoses / Procedures Referred By Contac t Referred To Contact Radiology Diagnoses Pain in right ankle and joints of right foot Procedures XR ankle right 3+ views Haven Zavala, DPM [address] [place] [address] Phone: tel: fax: Referral ID Status Reason Start Date Expiration Date Visits Requested Visits Authorized [id number] Authorized Perform Procedure 07/11/2025 08/10/2026 1 1 [facility] Work Phone: Reason for visit Narrative* Imaging (Routine) - Authorized Specialty Diagnoses / Procedures Referred By My t Referred To Contact Radiology Diagnoses Pain in right ankle and joints of right foot Procedures XR ankle right 3+ views Haven Zavala DPM [address] [place] [address] Phone: tel: fax: Referral ID Status Reason Start Date Expiration Date Visits Requested Visits Authorized [id number] Authorized Perform Procedure 09/08/2026 1 1 [facility] Work Phone: Summary Purpose Family History No Family History Records Found Mother Name Dates Details Family history of malignant neoplasm of breast(V16.3, Z80.3) Status:Active Father Name Dates Details Family history of throat can cer(V16.0, Z80.0) Status:Active Sister Name Dates Details Family history of malignant neoplasm of breast(V16.3, Z80.3) Status:Active Family history of lymphoma(V 16.7, Z80.7) Status:Active Family history of hypertensi on(V17.49, Z82.49) Status:Active Brother Name Dates Details Family history of malignant neoplasm of colon(V16.0, Z80.0) Status:Active Family history of leukemia(V 16.6, Z80.6) Status:Active Family history of hypertensi on(V17.49, Z82.49) Status:Active Mother Name Dates Details Family history of malignant neoplasm of breast(V16.3, Z80.3) Status:Active Father Name Dates Details Family history of throat can cer(V16.0, Z80.0) Status:Active Sister Name Dates Details Family history of malignant neoplasm of breast(V16.3, Z80.3) Status:Active Family history of lymphoma(V 16.7, Z80.7) Status:Active Family history of hypertensi on(V17.49, Z82.49) Status:Active Brother Name Dates Details Family history of malignant neoplasm of colon(V16.0, Z80.0) Status:Active Family history of leukemia(V 16.6, Z80.6) Status:Active Family history of hypertensi on(V17.49, Z82.49) Status:Active Unknown Family Member Name Dates Details Family history of malignant neoplasm of breast: Mother, Sister(V16.3, Z80.3) Status:Active Family history of throat can cer: Father(V16.0, Z80.0) Status:Active Family history of lymphoma: Sister(V16.7, Z80.7) Status:Active Family history of malignant neoplasm of colon: Brother(V16.0, Z80.0) Status:Active Family history of leukemia: Brother(V16.6, Z80.6) Status:Active Family history of hypertensi on: Sister, Brother(V17.49, Z82.49) Status:Active Unknown Family Member Name Dates Details Family history of malignant neoplasm of breast: Mother, Sister(V16.3, Z80.3) Status:Active Family history of throat can cer: Father(V16.0, Z80.0) Status:Active Family history of lymphoma: Sister(V16.7, Z80.7) Status:Active Family history of malignant neoplasm of colon: Brother(V16.0, Z80.0) Status:Active Family history of leukemia: Brother(V16.6, Z80.6) Status:Active Family history of hypertensi on: Sister, Brother(V17.49, Z82.49) Status:Active Unknown Family Member Name Dates Details Family history of malignant neoplasm of breast: Mother, Sister(V16.3, Z80.3) Status:Active Family history of throat can cer: Father(V16.0, Z80.0) Status:Active Family history of lymphoma: Sister(V16.7, Z80.7) Status:Active Family history of malignant neoplasm of colon: Brother(V16.0, Z80.0) Status:Active Family history of leukemia: Brother(V16.6, Z80.6) Status:Active Family history of hypertensi on: Sister, Brother(V17.49, Z82.49) Status:Active Unknown Family Member Name Dates Details Family history of malignant neoplasm of breast: Mother, Sister(V16.3, Z80.3) Status:Active Family history of throat can cer: Father(V16.0, Z80.0) Status:Active Family history of lymphoma: Sister(V16.7, Z80.7) Status:Active Family history of malignant neoplasm of colon: Brother(V16.0, Z80.0) Status:Active Family history of leukemia: Brother(V16.6, Z80.6) Status:Active Family history of hypertensi on: Sister, Brother(V17.49, Z82.49) Status:Active Unknown Family Member Name Dates Details Family history of malignant neoplasm of breast: Mother, Sister(V16.3, Z80.3) Status:Active Family history of throat can cer: Father(V16.0, Z80.0) Status:Active Family history of lymphoma: Sister(V16.7, Z80.7) Status:Active Family history of malignant neoplasm of colon: Brother(V16.0, Z80.0) Status:Active Family history of leukemia: Brother(V16.6, Z80.6) Status:Active Family history of hypertensi on: Sister, Brother(V17.49, Z82.49) Status:Active Unknown Family Member Name Dates Details Family history of malignant neoplasm of breast: Mother, Sister(V16.3, Z80.3) Status:Active Family history of throat can cer: Father(V16.0, Z80.0) Status:Active Family history of lymphoma: Sister(V16.7, Z80.7) Status:Active Family history of malignant neoplasm of colon: Brother(V16.0, Z80.0) Status:Active Family history of leukemia: Brother(V16.6, Z80.6) Status:Active Family history of hypertensi on: Sister, Brother(V17.49, Z82.49) Status:Active Unknown Family Member Name Dates Details Family history of malignant neoplasm of breast: Mother, Sister(V16.3, Z80.3) Status:Active Family history of throat can cer: Father(V16.0, Z80.0) Status:Active Family history of lymphoma: Sister(V16.7, Z80.7) Status:Active Family history of malignant neoplasm of colon: Brother(V16.0, Z80.0) Status:Active Family history of leukemia: Brother(V16.6, Z80.6) Status:Active Family history of hypertensi on: Sister, Brother(V17.49, Z82.49) Status:Active Unknown Family Member Name Dates Details Family history of malignant neoplasm of breast: Mother, Sister(V16.3, Z80.3) Status:Active Family history of throat can cer: Father(V16.0, Z80.0) Status:Active Family history of lymphoma: Sister(V16.7, Z80.7) Status:Active Family history of malignant neoplasm of colon: Brother(V16.0, Z80.0) Status:Active Family history of leukemia: Brother(V16.6, Z80.6) Status:Active Family history of hypertensi on: Sister, Brother(V17.49, Z82.49) Status:Active Unknown Family Member Name Dates Details Family history of malignant neoplasm of breast: Mother, Sister(V16.3, Z80.3) Status:Active Family history of throat can cer: Father(V16.0, Z80.0) Status:Active Family history of lymphoma: Sister(V16.7, Z80.7) Status:Active Family history of malignant neoplasm of colon: Brother(V16.0, Z80.0) Status:Active Family history of leukemia: Brother(V16.6, Z80.6) Status:Active Family history of hypertensi on: Sister, Brother(V17.49, Z82.49) Status:Active Unknown Family Member Name Dates Details Family history of malignant neoplasm of breast: Mother, Sister(V16.3, Z80.3) Status:Active Family history of throat can cer: Father(V16.0, Z80.0) Status:Active Family history of lymphoma: Sister(V16.7, Z80.7) Status:Active Family history of malignant neoplasm of colon: Brother(V16.0, Z80.0) Status:Active Family history of leukemia: Brother(V16.6, Z80.6) Status:Active Family history of hypertensi on: Sister, Brother(V17.49, Z82.49) Status:Active Unknown Family Member Name Dates Details Family history of hypertensi on: Sister, Brother(V17.49, Z82.49) Status:Active Family history of leukemia: Brother(V16.6, Z80.6) Status:Active Family history of malignant neoplasm of colon: Brother(V16.0, Z80.0) Status:Active Family history of lymphoma: Sister(V16.7, Z80.7) Status:Active Family history of throat can cer: Father(V16.0, Z80.0) Status:Active Family history of malignant neoplasm of breast: Mother, Sister(V16.3, Z80.3) Status:Active Unknown Family Member Name Dates Details Family history of malignant neoplasm of breast: Mother, Sister(V16.3, Z80.3) Status:Active Family history of throat can cer: Father(V16.0, Z80.0) Status:Active Family history of lymphoma: Sister(V16.7, Z80.7) Status:Active Family history of malignant neoplasm of colon: Brother(V16.0, Z80.0) Status:Active Family history of leukemia: Brother(V16.6, Z80.6) Status:Active Family history of hypertensi on: Sister, Brother(V17.49, Z82.49) Status:Active Unknown Family Member Name Dates Details Family history of malignant neoplasm of breast: Mother, Sister(V16.3, Z80.3) Status:Active Family history of throat can cer: Father(V16.0, Z80.0) Status:Active Family history of lymphoma: Sister(V16.7, Z80.7) Status:Active Family history of malignant neoplasm of colon: Brother(V16.0, Z80.0) Status:Active Family history of leukemia: Brother(V16.6, Z80.6) Status:Active Family history of hypertensi on: Sister, Brother(V17.49, Z82.49) Status:Active Unknown Family Member Name Dates Details Family history of malignant neoplasm of breast: Mother, Sister(V16.3, Z80.3) Status:Active Family history of throat can cer: Father(V16.0, Z80.0) Status:Active Family history of lymphoma: Sister(V16.7, Z80.7) Status:Active Family history of malignant neoplasm of colon: Brother(V16.0, Z80.0) Status:Active Family history of leukemia: Brother(V16.6, Z80.6) Status:Active Family history of hypertensi on: Sister, Brother(V17.49, Z82.49) Status:Active Unknown Family Member Name Dates Details Family history of malignant neoplasm of breast: Mother, Sister(V16.3, Z80.3) Status:Active Family history of throat can cer: Father(V16.0, Z80.0) Status:Active Family history of lymphoma: Sister(V16.7, Z80.7) Status:Active Family history of malignant neoplasm of colon: Brother(V16.0, Z80.0) Status:Active Family history of leukemia: Brother(V16.6, Z80.6) Status:Active Family history of hypertensi on: Sister, Brother(V17.49, Z82.49) Status:Active Relationship Condition Age at Onset Recorded Date/T lona brother Malignant neoplasm of colon Unknown Hypertension Unknown Malignant neoplasm Unknown Leukemia Unknown mother Malignant neoplasm of breast Unknown sister Malignant neoplasm of breast Unknown Lymphoma Unknown aunt Malignant neoplasm of breast Unknown Unknown Family Member Name Dates Details Family history of malignant neoplasm of breast: Mother, Sister(V16.3, Z80.3) Status:Active Family history of throat can cer: Father(V16.0, Z80.0) Status:Active Family history of lymphoma: Sister(V16.7, Z80.7) Status:Active Family history of malignant neoplasm of colon: Brother(V16.0, Z80.0) Status:Active Family history of leukemia: Brother(V16.6, Z80.6) Status:Active Family history of hypertensi on: Sister, Brother(V17.49, Z82.49) Status:Active Advance Directives No Advanced Directives Records FoundLatest Code Status on File Code Status Date Activated Date Inactivated Comments Full Code 10/09/2021 5:37 AM Advance Directive Response Recorded Date/ Time Living Will Yes July 27, 2021 2:53pm Power of Family Resource Specialist Yes June 2:53pm Latest Code Status on File Code Status Date Activated Date Inactivated Comments Full Code 10/09/2021 5:37 AM Latest Code Status on File Code Status Date Activated Date Inactivated Comments Full Code 10/09/2021 5:37 AM Advance Directive Response Recorded Date/ Time Living Will Yes July 27, 2021 2:53pm Power of Family Resource Specialist Yes June 2:53pm Living Will Yes August 05 12:33pm Power of Family Resource Specialist Yes August 05, 12:33pm Living Will Yes August 29 9:56am Power of Family Resource Specialist Yes August 29, 2024 9:56am Advance Directives on File No January 02, 2025 12:37pm Living Will Yes January 02, 2025 12:37pm Power of Family Resource Specialist Yes January 02 12:37pm Name of Medical Power of Family Resource Specialist Leyla- January 02, 2025 12:37pm Advance Directives Yes January 02 12:37pm Advance Directive Response Recorded Date/ Time Advance Directives on File No March 062024 11:36am Living Will Yes March 06, 2025 11 :36am Do you have a Healthcare Power of Family Resource Specialist? Yes March 06, 2025 11:36am Name of Medical Power of Family Resource Specialist Leyla- March 06, 2025 11:36am Advance Directives Yes March 06, 2025 11:36am Advance Directive Response Recorded Date/ Time Advance Directives on File No February 282024 11:13am Living Will Yes March 27, 2025 1 1:13am Do you have a Healthcare Power of Family Resource Specialist? Yes March 27, 2025 11:13am Name of Medical Power of Family Resource Specialist Leyla- March 27, 2025 11:13am Advance Directives Yes March 27 11:13am Advance Directive Response Recorded Date/ Time Advance Directives on File No April 17, 2025 11:20am Living Will Yes April 17, 2025 11:20am Do you have a Healthcare Power of Family Resource Specialist? Yes April 17, 2025 11:20am Name of Medical Power of Family Resource Specialist Leyla- April 17, 2025 11:20am Advance Directives Yes April 17 11:20am Advance Directive Response Recorded Date/ Time Advance Directives on File No May 08, 2025 10:25am Living Will Yes May 08, 2025 10:25am Do you have a Healthcare Power of Family Resource Specialist? Yes May 08, 2025 10:25am Name of Medical Power of Family Resource Specialist Leyla- May 08, 2025 10:25am Advance Directives Yes May 08 10:25am Advance Directive Response Recorded Date/ Time Advance Directives on File No May 29, 2025 11:44am Living Will Yes May 29, 2025 11:44am Do you have a Healthcare Power of Family Resource Specialist? Yes May 29, 2025 11:44am Name of Medical Power of Family Resource Specialist Leyla- May 29, 2025 11:44am Advance Directives Yes May 29 11:44am Advance Directive Response Recorded Date/ Time Advance Directives on File No Octob er 2024 10:37am Living Will Yes July 31 10:37am Do you have a Healthcare Power of Family Resource Specialist? Yes July 31, 2025 10:37am Name of Medical Power of Family Resource Specialist Leyla- July 31, 2025 10:37am Advance Directives Yes July 31, 2025 10:37am Advance Directive Response Recorded Date/ Time Advance Directives on File No Octob er 2024 12:08pm Living Will Yes August 21 12:08pm Do you have a Healthcare Power of Family Resource Specialist? Yes August 21, 2025 12:08pm Name of Medical Power of Family Resource Specialist Leyla- August 21, 2025 12:08pm Advance Directives Yes August 21, 2025 12:08pm Chief Complaint [facility] Chief Complaint and Reason for Visit Chief Complaint 3 MO - NO LABS followup breast 3 MO - NO LABS SCREENING 1 Y FU MAMM 05/30/22 Reason for Visit Breast cancer, left breast Benign neoplasm of left lung Breast cancer, left breast Breast cancer, left breast Benign neoplasm of left lung Breast cancer, left breast Chief Complaint 3 MO - NO LABS 3 MO - NO LABS SCREENING 4 month f/u breast - review mammo Reason for Visit Breast cancer, left breast Benign neoplasm of left lung Breast cancer, left breast Benign neoplasm of left lung Breast cancer, left breast Chief Complaint 3 MO - NO LABS SCREENING 4 month f/u 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 Reason for Visit Breast cancer, left breast Benign neoplasm of left lung Breast cancer, left breast Chief Complaint Admit Date 1 WK - LABS - TAXOL/TRASTUZUMAB September 12, 2024 8:22am SORE ON PORT INCISION SITE August 10:16am 1 WK - LABS - TAXOL/TRASTUZUMAB September 19, 2024 8:59am 1 WK - LABS - TAXOL/TRASTUZUMAB September 25, 2024 8:22am 1 WK - LABS - TAXOL/HERCEPTIN October 032023 9:02am 6 MONTH BREAST October 07, 2024 9 :13am 1 WK - LABS - TAXOL/HERCEPTIN September 292023 8:54am 1 WK - LABS - TAXOL/HERCEPTIN September 292023 8:59am 1 WK - LABS - TAXOL/HERCEPTIN October 8:54am PALP 2024 7: 38am 1 WK - LABS - TAXOL/HERCEPTIN November 142024 9:50am Hypertension November 15, 2024 1 0:41am 30 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 January 09, 2025 8:4 0am Reason for Visit Admit Date Drug induced neutropenia September 12, 2024 8:22am Encounter for chemotherapy management No vember 2023 8:22am Breast cancer, left breast August 8:22am Suture reaction September 12, 2024 10:16am Acid reflux September 19, 2024 8:59am Drug induced neutropenia September 19, 2024 8:59am Encounter for chemotherapy management No vember 2023 8:59am Breast cancer, left breast August 8:59am Breast cancer, left breast August 8:22am Drug induced neutropenia October 03, 024 9:02am Encounter for chemotherapy management De cember 2023 9:02am Breast cancer, left breast October 03, 2024 9:02am Breast cancer, right October 07, 2024 9:13am Breast cancer, left breast October 07, 2024 9:13am Breast cancer, left breast September 8:54am Encounter for chemotherapy management De cember 2023 8:59am Hypokalemia October 17, 2024 8:59am Breast cancer, left breast September 8:59am Encounter for chemotherapy management Ja nuary 2024 8:54am Hypokalemia October 31, 2024 8: 54am Breast cancer, left breast October 31, 2024 8:54am Breast cancer, left breast November 14, 2024 9:50am Heart palpitations November 15, 2024 1 0:41am HER2-positive carcinoma of breast y 2024 10:41am Breast cancer, left breast November 28, 2024 9:46am Breast cancer, left breast December 05, 2024 9:49am Encounter for chemotherapy management Fe bruary 2024 9:21am Encounter for monoclonal ant ibody treatment for malignancy December 12, 2024 9:21am Breast cancer, left breast November 9:21am Breast cancer, right December 26, 2024 11:04am Breast cancer, left breast November 11:04am Breast cancer, left breast January 02 9:07am Breast cancer, right January 08, 2025 8: 18am Breast cancer, left breast January 08, 025 8:18am Chief Complaint Admit Date 2 WKS - LABS - HERCEPTIN/TAXOL November 012024 9:46am 1 WK - LABS - TAXOL/HERCEPTIN December 052024 9:49am 1 WK - LABS - TAXOL/HERCEPTIN November 302024 9:21am DISCUSS XRT, CT SIM AFTER December 26, 2024 11:04am BREAST CA December 30, 2024 9:24 am 3WKS LABS TX January 02, 2025 9:07 am OTV January 08, 2025 8:1 8am OTV January 15, 2025 11: 17am OTV January 22, 2025 10: 18am 3 WKS - NO LABS - HERCEPTIN January 23, 2025 10:15am OTV January 27, 2025 10: 09am 3 M FU February 07, 2025 10: 06am 3 WKS - LABS - HERCEPTIN February 13 9:46am 1 MONTH F/U POST RT March 06, 2025 10:05a m 3 WKS - LABS - HERCEPTIN March 27, 2025 9:59am . March 27, 2025 10:15 am Reason for Visit Admit Date Breast cancer, left breast November 28, 2024 9:46am Breast cancer, left breast December 05, 2024 9:49am Encounter for chemotherapy management Fe bruary 2024 9:21am Encounter for monoclonal ant ibody treatment for malignancy December 12, 2024 9:21am Breast cancer, left breast November 9:21am Breast cancer, right December 26, 2024 11:04am Breast cancer, left breast November 11:04am Breast cancer, left breast January 02 9:07am Breast cancer, right January 08, 2025 8: 18am Breast cancer, left breast January 08, 025 8:18am Breast cancer, right January 15, 2025 11 :17am Breast cancer, left breast January 15, 025 11:17am Breast cancer, right January 22, 2025 10 :18am Breast cancer, left breast January 22, 025 10:18am Breast cancer, left breast January 23, 025 10:15am Breast cancer, right January 27, 2025 10 :09am Breast cancer, left breast January 27, 025 10:09am HER2-positive carcinoma of breast February 07, 2025 10:06am Breast cancer, left breast February 13, 025 9:46am Breast cancer, left breast March 06, 2025 10:05am Breast cancer, right March 06, 2025 10:05 am Breast cancer, left breast March 27 9:59am Chief Complaint Admit Date DISCUSS XRT, CT SIM AFTER December 26, 2024 11:04am BREAST CA December 30, 2024 9:24 am 3WKS LABS TX January 02, 2025 9:07 am OTV January 08, 2025 8:1 8am OTV January 15, 2025 11: 17am OTV January 22, 2025 10: 18am 3 WKS - NO LABS - HERCEPTIN January 23, 2025 10:15am OTV January 27, 2025 10: 09am 3 M FU February 07, 2025 10: 06am 3 WKS - LABS - HERCEPTIN February 13 9:46am 1 MONTH F/U POST RT March 06, 2025 10:05a m 3 WKS - LABS - HERCEPTIN March 27, 2025 9:59am . March 27, 2025 10:15 am MCC DRUG USE April 10, 2025 9:29 am Reason for Visit Admit Date Breast cancer, right December 26, 2024 11:04am Breast cancer, left breast November 11:04am Breast cancer, left breast January 02 9:07am Breast cancer, right January 08, 2025 8: 18am Breast cancer, left breast January 08, 025 8:18am Breast cancer, right January 15, 2025 11 :17am Breast cancer, left breast January 15, 2 025 11:17am Breast cancer, right January 22, 2025 10 :18am Breast cancer, left breast January 22, 2 025 10:18am Breast cancer, left breast January 23, 2 025 10:15am Breast cancer, right January 27, 2025 10 :09am Breast cancer, left breast January 27, 2 025 10:09am HER2-positive carcinoma of breast February 07, 2025 10:06am Breast cancer, left breast February 13, 2 025 9:46am Breast cancer, left breast March 06, 2025 10:05am Breast cancer, right March 06, 2025 10:05 am Breast cancer, left breast March 27 9:59am Chief Complaint Admit Date DISCUSS XRT, CT SIM AFTER December 26, 2024 11:04am BREAST CA December 30, 2024 9:24 am 3WKS LABS TX January 02, 2025 9:07 am OTV January 08, 2025 8:1 8am OTV January 15, 2025 11: 17am OTV January 22, 2025 10: 18am 3 WKS - NO LABS - HERCEPTIN January 23, 2025 10:15am OTV January 27, 2025 10: 09am 3 M FU February 07, 2025 10: 06am 3 WKS - LABS - HERCEPTIN February 13 9:46am 1 MONTH F/U POST RT March 06, 2025 10:05a m 3 WKS - LABS - HERCEPTIN March 27, 2025 9:59am MCC DRUG USE April 10, 2025 9:29 am 3 WKS - NO LABS - HERCEPTIN - REVIEW ECH O April 17, 2025 10:38am Reason for Visit Admit Date Breast cancer, right December 26, 2024 11:04am Breast cancer, left breast November 11:04am Breast cancer, left breast January 02 9:07am Breast cancer, right January 08, 2025 8: 18am Breast cancer, left breast January 08, 8:18am Breast cancer, right January 15, 2025 11 :17am Breast cancer, left breast January 15, 025 11:17am Breast cancer, right January 22, 2025 10 :18am Breast cancer, left breast January 22, 025 10:18am Breast cancer, left breast January 23, 025 10:15am Breast cancer, right January 27, 2025 10 :09am Breast cancer, left breast January 27, 025 10:09am HER2-positive carcinoma of breast February 07, 2025 10:06am Breast cancer, left breast February 13, 025 9:46am Breast cancer, left breast March 06, 2025 10:05am Breast cancer, right March 06, 2025 10:05 am Breast cancer, left breast March 27 9:59am Breast cancer, left breast April 17 10:38am Chief Complaint Admit Date OTV January 08, 2025 8:1 8am OTV January 15, 2025 11: 17am OTV January 22, 2025 10: 18am 3 WKS - NO LABS - HERCEPTIN January 23, 2025 10:15am OTV January 27, 2025 10: 09am 3 M FU February 07, 2025 10: 06am 3 WKS - LABS - HERCEPTIN February 13 9:46am 1 MONTH F/U POST RT March 06, 2025 10:05a m 3 WKS - LABS - HERCEPTIN March 27, 2025 9:59am MCC DRUG USE April 10, 2025 9:29 am 3 WKS - NO LABS - HERCEPTIN - REVIEW ECH O April 17, 2025 10:38am 3 WKS - LABS - HERCEPTIN May 08, 2025 8:23am . May 08, 2025 8:45 am Reason for Visit Admit Date Breast cancer, right January 08, 2025 8: 18am Breast cancer, left breast January 08, 025 8:18am Breast cancer, right January 15, 2025 11 :17am Breast cancer, left breast January 15, 025 11:17am Breast cancer, right January 22, 2025 10 :18am Breast cancer, left breast January 22, 025 10:18am Breast cancer, left breast January 23, 025 10:15am Breast cancer, right January 27, 2025 10 :09am Breast cancer, left breast January 27, 025 10:09am HER2-positive carcinoma of breast February 07, 2025 10:06am Breast cancer, left breast February 13, 025 9:46am Breast cancer, left breast March 06, 2025 10:05am Breast cancer, right March 06, 2025 10:05 am Breast cancer, left breast March 27 9:59am Breast cancer, left breast April 17 10:38am Breast cancer, left breast May 08 8:23am Chief Complaint Admit Date 3 M FU February 07, 2025 10: 06am 3 WKS - LABS - HERCEPTIN February 13 9:46am 1 MONTH F/U POST RT March 06, 2025 10:05a m 3 WKS - LABS - HERCEPTIN March 27, 2025 9:59am 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 May 29, 2025 11:3 0am Reason for Visit Admit Date HER2-positive carcinoma of breast February 07, 2025 10:06am Breast cancer, left breast February 13, 2 025 9:46am Breast cancer, left breast March 06, 2025 10:05am Breast cancer, right March 06, 2025 10:05 am Breast cancer, left breast March 27 9:59am Breast cancer, left breast April 17 10:38am Breast cancer, left breast May 08 8:23am Breast cancer, left breast May 29 10:31am Chief Complaint Admit Date 1 MONTH F/U POST RT March 06, 2025 10:05a m 3 WKS - LABS - HERCEPTIN March 27, 2025 9:59am MCC DRUG USE April 10, 2025 9:29 am 3 WKS - NO LABS - HERCEPTIN - REVIEW ECH O April 17, 2025 10:38am 3 WKS - LABS - HERCEPTIN May 08, 2025 8:23am 3 WKS - NO LABS - HERCEPTIN May 29 025 10:31am follow up treated breast cancer, annual mammogram June 13, 2025 9:12am 3 WKS - LABS - HERCEPTIN June 19 9:19am . June 19, 2025 9: 45am Reason for Visit Admit Date Breast cancer, left breast March 06, 2025 10:05am Breast cancer, right March 06, 2025 10:05 am Breast cancer, left breast March 27 9:59am Breast cancer, left breast April 17 10:38am Breast cancer, left breast May 08 8:23am Breast cancer, left breast May 29 10:31am Chief Complaint Admit Date 1 MONTH F/U POST RT March 06, 2025 10:05a m 3 WKS - LABS - HERCEPTIN March 27, 2025 9:59am MCC DRUG USE April 10, 2025 9:29 am 3 WKS - NO LABS - HERCEPTIN - REVIEW ECH O April 17, 2025 10:38am 3 WKS - LABS - HERCEPTIN May 08, 2025 8:23am 3 WKS - NO LABS - HERCEPTIN May 29, 025 10:31am follow up treated breast cancer, annual mammogram June 13, 2025 9:12am 3 WKS - LABS - HERCEPTIN June 19 9:19am . 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 June 19, 2025 9: 45am R06.00 Dyspnea, unspecified I70.92 Augus t 2024 2:09pm SWELLING June 19, 2025 2: 27pm 4 MONTH BREAST July 07, 2025 9:40am Reason for Visit Admit Date Breast cancer, left breast March 27 9:59am Breast cancer, left breast April 17 10:38am Breast cancer, left breast May 08 8:23am Breast cancer, left breast May 29 10:31am DVT (deep venous thrombosis) May 9:19am Breast cancer, left breast June 19, 2025 9:19am Chief Complaint Admit Date 3 WKS - LABS - HERCEPTIN March 27, 2025 9:59am MCC DRUG USE April 10, 2025 9:29 am 3 WKS - NO LABS - HERCEPTIN - REVIEW ECH O April 17, 2025 10:38am 3 WKS - LABS - HERCEPTIN May 08, 2025 8:23am 3 WKS - NO LABS - HERCEPTIN May 29, 2 025 10:31am follow up treated breast cancer, annual mammogram June 13, 2025 9:12am 3 WKS - LABS - HERCEPTIN June 19 9:19am R06.00 Dyspnea, unspecified I70.92 Augus t 2024 2:09pm SWELLING June 19, 2025 2: 27pm 4 MONTH BREAST July 07, 2025 9:40am 3 WKS - NO LABS - HERCEPTIN July 102024 10:40am . July 10, 2025 11:30am Reason for Visit Admit Date Breast cancer, left breast March 27 9:59am Breast cancer, left breast April 17 10:38am Breast cancer, left breast May 08 8:23am Breast cancer, left breast May 29 10:31am DVT (deep venous thrombosis) May 9:19am Breast cancer, left breast June 19, 2025 9:19am Breast cancer, right July 07, 2025 9:40am Breast cancer, left breast June 9:40am DVT (deep venous thrombosis) June 302024 10:40am Pulmonary embolism July 10, 2025 10:40am Breast cancer, left breast June 10:40am Chief Complaint Admit Date MCC DRUG USE April 10, 2025 9:29 am 3 WKS - NO LABS - HERCEPTIN - REVIEW ECH O April 17, 2025 10:38am 3 WKS - LABS - HERCEPTIN May 08, 2025 8:23am 3 WKS - NO LABS - HERCEPTIN May 29, 2 025 10:31am follow up treated breast cancer, annual mammogram June 13, 2025 9:12am 3 WKS - LABS - HERCEPTIN June 19 9:19am R06.00 Dyspnea, unspecified I70.92 Augus t 2024 2:09pm SWELLING June 19, 2025 2: 27pm 4 MONTH BREAST July 07, 2025 9:40am 3 WKS - NO LABS - HERCEPTIN July 102024 10:40am 3 WKS - LABS - HERCEPTIN July 31 10:24am . July 31, 2025 10 :45am Reason for Visit Admit Date Breast cancer, left breast April 17 10:38am Breast cancer, left breast May 08 8:23am Breast cancer, left breast May 29 10:31am DVT (deep venous thrombosis) May 9:19am Breast cancer, left breast June 19, 2025 9:19am Breast cancer, right July 07, 2025 9:40am Breast cancer, left breast June 9:40am DVT (deep venous thrombosis) June 302024 10:40am Pulmonary embolism July 10, 2025 10:40am Breast cancer, left breast June 10:40am DVT (deep venous thrombosis) July 10:24am Pulmonary embolism July 31, 2025 10 :24am Breast cancer, left breast July 31, 2025 10:24am Chief Complaint Admit Date 3 WKS - LABS - HERCEPTIN May 08, 2025 8:23am 3 WKS - NO LABS - HERCEPTIN May 29, 10:31am follow up treated breast cancer, annual mammogram June 13, 2025 9:12am 3 WKS - LABS - HERCEPTIN June 19 9:19am R06.00 Dyspnea, unspecified I70.92 Augus t 2024 2:09pm SWELLING June 19, 2025 2: 27pm 4 MONTH BREAST July 07, 2025 9:40am 3 WKS - NO LABS - HERCEPTIN July 102024 10:40am 3 WKS - LABS - HERCEPTIN July 31 10:24am Malignant 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 August 21, 2025 1 1:30am Reason for Visit Admit Date Breast cancer, left breast May 08 8:23am Breast cancer, left breast May 29 10:31am Breast cancer, left breast June 19, 2025 9:19am DVT (deep venous thrombosis) May 9:19am Breast cancer, right July 07, 2025 9:40am Breast cancer, left breast June 9:40am Breast cancer, left breast June 10:40am DVT (deep venous thrombosis) June 302024 10:40am Pulmonary embolism July 10, 2025 10:40am Breast cancer, left breast July 31, 2025 10:24am DVT (deep venous thrombosis) July 10:24am Pulmonary embolism July 31, 2025 10 :24am Breast cancer, left breast August 21, 2025 10:39am DVT (deep venous thrombosis) July 10:39am Malignant neoplasm of upper- outer quadrant of right breast in female, estro August 21, 2025 10:39am Pulmonary embolism August 21, 2025 1 0:39am Reason for Referral Specialty Diagnoses / Procedures Referred By My interiano Referred To Contact Diagnoses Solitary fibrous tumor Procedures CT CHEST WITHOUT CONTRAST CHG DIAGNOSTIC COMPUTED TOMOGRAPHY THORAX W/O CNTRST Osvaldo Pedroza PA-C [address] [place] [address] Referral ID Status Reason Start Date Expiration Date Visits Re quested Visits Authorized [id number] Closed 10/30/2021 11/13/2022 1 1 Additional Source Comments INFORMATION SOURCE (unrecogn ized section and content) DATE CREATED AUTHOR 05/22/2019 [facility] DATE CREATED AUTHOR AUTHOR'S ORGANIZ ATION 10/07/2021 [facility] DATE CREATED AUTHOR AUTHOR'S ORGANIZ ATION 06/04/2022 [facility] DATE CREATED AUTHOR AUTHOR'S ORGANIZ ATION 09/15/2022 [facility] DATE CREATED AUTHOR AUTHOR'S ORGANIZ ATION 11/14/2022 [facility] DATE CREATED AUTHOR AUTHOR'S ORGANIZ ATION 03/01/2023 [facility] DATE CREATED AUTHOR AUTHOR'S ORGANIZ ATION 06/22/2025 [facility] DATE CREATED AUTHOR AUTHOR'S ORGANIZ ATION 08/11/2025 [facility] DATE CREATED AUTHOR AUTHOR'S ORGANIZ ATION 09/06/2025 [facility] Reason for Visit (unrecogniz ed section and content) Reason Comments Medicare Annual Wellness Visit [facility] Specialty Diagnoses / Procedures Referred By Contac t Referred To Contact Primary Care Diagnoses Medicare annual wellness visit, subsequent Procedures Follow Up In Primary Care - Established Kristina Mcginnis MD [address] [place] [address] Referral ID Status Reason Start Date Expiration Date Visits Re quested Visits Authorized [id number] Closed 04/28/2023 10/25/2023 1 1 Reason Comments Genetic Risk Assessment Specialty Diagnoses / Procedures Referred By Contac t Referred To Contact Genetics Diagnoses Malignant neoplasm of left female breast, unspecified estrogen receptor status, unspecified site of breast Arturo Olivas, [facility] [address] [place] [address] Referral ID Status Reason Start Date Expiration Date V isits Requested Visits Authorized [id number] Pending Review 06/22/2021 07/17/2022 1 1 Specialty Diagnoses / Procedures Referred By Contac t Referred To Contact Diagnoses Solitary fibrous tumor Procedures CT CHEST WITHOUT CONTRAST CHG DIAGNOSTIC COMPUTED TOMOGRAPHY THORAX W/O CNTRST Osvaldo Pedroza PA-C [address] [place] [address] Referral ID Status Reason Start Date Expiration Date Visits Re quested Visits Authorized [id number] Closed 10/30/2021 11/13/2022 1 1 Reason Comments Follow-up Denies cough or SOB, denies pain Reason Comments Cough Cough, chest congest ion x 3 weeks Reason Comments Bronchitis x1mo Specialty Diagnoses / Procedures Referred By Contac t Referred To Contact Primary Care Diagnoses Medicare annual wellness visit, subsequent Procedures Follow Up In Primary Care - Established Kristina Mcginnis MD Phone: tel: fax: Referral ID Status Reason Start Date Expiration Date V isits Requested Visits Authorized [id number] Authorized 04/26/2024 04/26/2025 1 1 Reason Comments Eye Pain Right eye tender and puffy- has dry eye normally Reason Comments Cough Chills, cough x 1 we ek, cold chills, fever on 06/13/25 taking otc ibuprofen, runny nose (clear) Care Teams (unrecognized sec tion and content) Cable Lacer Relationship Specialty Start Date End Date Kristina Mcginnis MD [address] [facility] [place] [phone] PCP - General Family Medicine 09/07/21 Cable Lacer Relationship Specialty Start Date End Date Kristina Mcginnis MD [address] [place] [phone] PCP - General Family Medicine 09/07/21 Cable Lacer Relationship Specialty Start Date End Date Kristina Mcginnis MD [address] [place] [id number] PCP - General 07/02/19 Kristina Mcginnis MD [address] [place] [address] PCP - [employer] Medicare Advantage PCP 10/30/21 Team Status: Active Member Role Status Dates Dr. Kristina Mcginnis MD Primary Care Provider Active Team Status: Inactive Member Role Status Dates Dr. Kristina Mcginnis MD Primary Care Provider, Referr ing Provider Active Dr. Arturo Olivas MD Attending Provider Active Team Status: Inactive Member Role Status Dates Dr. Kristina Mcginnis MD Primary Care Provider Active Dr. Kan Ang DO Attending Provider Active Team Status: Inactive Member Role Status Dates Dr. Kristina Mcginnis MD Primary Care Provider Active Dr. Kan Ang DO Attending Provider, Referring P chad Active Team Status: Inactive Member Role Status Dates Dr. Kristina Mcginnis MD Primary Care Provider Active Dr. Arturo Olivas MD Attending Provider, Referrin g Provider Active Cable Lacer Relationship Specialty Start Date End Date Kristina Mcginnis MD [address] [place], [place] [address] [id number] PCP - General 07/02/19 Kristina Mcginnis MD [address] [place] [address] PCP - [employer] Medicare Advantage PCP 10/30/21 Cable Lacer Relationship Specialty Start Date End Date Kristina Mcginnis MD [address] [place] [address] PCP - General 07/02/19 Kristina Mcginnis MD [address] [facility] [place] [address] PCP - [employer] Medicare Advantage PCP 10/30/21 Cable Lacer Relationship Specialty Start Date End Date Kristina Mcginnis MD [address] [place] [address] PCP - General 07/02/19 Kristina Mcginnis MD [address] [facility] [place] [address] PCP - [employer] Medicare Advantage PCP 10/30/21 Team Status: Inactive Member Role Status Dates Dr. Kristina Mcginnis MD Primary Care Provider Active Start: September 12, 2024 End: September 12, 2024 Dr. Kristina Mcginnis MD Referring Provider Active Start: September 12, 2024 End: September 12, 2024 Liz Arechiga NP, AUTOMOTIVE QUALITY MANAGER-C Attending Provider Active Start: September 12, 2024 End: September 12, 2024 Team Status: Inactive Member Role Status Dates Dr. Kristina Mcginnis MD Primary Care Provider Active Start: September 12, 2024 End: September 12, 2024 Dr. Kristina Mcginnis MD Referring Provider Active Start: September 12, 2024 End: September 12, 2024 Ashley QUARLES PA-C Attending Provider Active Start: September 12, 2024 End: September 12, 2024 Team Status: Inactive Member Role Status Dates Dr. Kristina Mcginnis MD Primary Care Provider Active Start: September 19, 2024 End: September 19, 2024 Dr. Kristina Mcginnis MD Referring Provider Active Start: September 19, 2024 End: September 19, 2024 Liz Arechiga AUTOMOTIVE QUALITY MANAGER, AUTOMOTIVE QUALITY MANAGER-C Attending Provider Active Start: September 19, 2024 End: September 19, 2024 Team Status: Inactive Member Role Status Dates Dr. Kristina Mcginnis MD Primary Care Provider Active Start: September 25, 2024 End: September 25, 2024 Dr. Kristina Mcginnis MD Referring Provider Active Start: September 25, 2024 End: September 25, 2024 Dr. Arturo Olivas MD Attending Provider Active Start: September 25, 2024 End: September 25, 2024 Team Status: Inactive Member Role Status Dates Dr. Kristina Mcginnis MD Primary Care Provider Active Start: October 03, 2024 End: October 03, 2024 Dr. Kristina Mcginnis MD Referring Provider Active Start: October 03, 2024 End: October 03, 2024 Liz Arechiga AUTOMOTIVE QUALITY MANAGER, AUTOMOTIVE QUALITY MANAGER-C Attending Provider Active Start: October 03, 2024 End: October 03, 2024 Team Status: Inactive Member Role Status Dates Dr. Kristina Mcginnis MD Primary Care Provider Active Start: October 07, 2024 End: October 07, 2024 Dr. Kan Ang DO Attending Provider Active Start: October 07, 2024 End: October 07, 2024 Team Status: Inactive Member Role Status Dates Dr. Kristina Mcginnis MD Primary Care Provider Active Start: October 10, 2024 End: October 10, 2024 Dr. Kristina Mcginnis MD Referring Provider Active Start: October 10, 2024 End: October 10, 2024 Dr. Arturo Olivas MD Attending Provider Active Start: October 10, 2024 End: October 10, 2024 Team Status: Inactive Member Role Status Dates Dr. Kristina Mcginnis MD Primary Care Provider Active Start: October 17, 2024 End: October 17, 2024 Dr. Kristina Mcginnis MD Referring Provider Active Start: October 17, 2024 End: October 17, 2024 Liz Arechiga AUTOMOTIVE QUALITY MANAGER, AUTOMOTIVE QUALITY MANAGER-C Attending Provider Active Start: October 17, 2024 End: October 17, 2024 Team Status: Inactive Member Role Status Dates Dr. Kristina Mcginnis MD Primary Care Provider Active Start: October 31, 2024 End: October 31, 2024 Dr. Kristina Mcginnis MD Referring Provider Active Start: October 31, 2024 End: October 31, 2024 Liz Arechiga AUTOMOTIVE QUALITY MANAGER, AUTOMOTIVE QUALITY MANAGER-C Attending Provider Active Start: October 31, 2024 End: October 31, 2024 Team Status: Inactive Member Role Status Dates Dr. Kristina Mcginnis MD Primary Care Provider Active Start: 2024 End: 2024 Liz Arechiga AUTOMOTIVE QUALITY MANAGER, AUTOMOTIVE QUALITY MANAGER-C Attending Provider Active Start: 2024 End: 2024 Lizraul Arechiga AUTOMOTIVE QUALITY MANAGER, AUTOMOTIVE QUALITY MANAGER-C Referring Provider Active Start: 2024 End: 2024 Team Status: Active Member Role Status Dates Dr. Kristina Mcginnis MD Primary Care Provider Active Start: 2024 Dr. Sridhar Fay MD Attending Provider Active S tart: 2024 Team Status: Inactive Member Role Status Dates Dr. Kristina Mcginnis MD Primary Care Provider Active Start: November 14, 2024 End: November 14, 2024 Dr. Kristina Mcginnis MD Referring Provider Active Start: November 14, 2024 End: November 14, 2024 Dr. Arturo Olivas MD Attending Provider Active Start: November 14, 2024 End: November 14, 2024 Team Status: Inactive Member Role Status Dates Dr. Kristina Mcginnis MD Primary Care Provider Active Start: November 15, 2024 End: November 15, 2024 Dr. Kristina Mcginnis MD Referring Provider Active Start: November 15, 2024 End: November 15, 2024 Dr. Sridhar Fay MD Attending Provider Active S tart: November 15, 2024 End: November 15, 2024 Team Status: Active Member Role Status Dates Dr. Kristina Mcginnis MD Primary Care Provider Active Start: November 22, 2024 Dr. Sridhar Fay MD Attending Provider Active S tart: November 22, 2024 Dr. Sridhar Fay MD Referring Provider Active S tart: November 22, 2024 Team Status: Inactive Member Role Status Dates Dr. Kristina Mcginnis MD Primary Care Provider Active Start: November 28, 2024 End: November 28, 2024 Dr. Kristina Mgcinnis MD Referring Provider Active Start: November 28, 2024 End: November 28, 2024 Dr. Arturo Olivas MD Attending Provider Active Start: November 28, 2024 End: November 28, 2024 Team Status: Inactive Member Role Status Dates Dr. Kristina Mcginnis MD Primary Care Provider Active Start: December 05, 2024 End: December 05, 2024 Dr. Kristina Mcginnis MD Referring Provider Active Start: December 05, 2024 End: December 05, 2024 Liz Arechiga NP, AUTOMOTIVE QUALITY MANAGER-C Attending Provider Active Start: December 05, 2024 End: December 05, 2024 Team Status: Inactive Member Role Status Dates Dr. Kristina Mcginnis MD Primary Care Provider Active Start: December 12, 2024 End: December 12, 2024 Dr. Kristina Mcginnis MD Referring Provider Active Start: December 12, 2024 End: December 12, 2024 Liz Arechiga NP, AUTOMOTIVE QUALITY MANAGER-C Attending Provider Active Start: December 12, 2024 End: December 12, 2024 Team Status: Inactive Member Role Status Dates Dr. Kristina Mcginnis MD Primary Care Provider Active Start: December 26, 2024 End: December 26, 2024 Dr. Kristina Mcgninis MD Referring Provider Active Start: December 26, 2024 End: December 26, 2024 Dr. Kan Ang DO Attending Provider Active Start: December 26, 2024 End: December 26, 2024 Team Status: Active Member Role Status Dates Dr. Kristina Mcginnis MD Primary Care Provider Active Start: December 26, 2024 Dr. Kan Ang DO Attending Provider Active Start: December 26, 2024 Team Status: Inactive Member Role Status Dates Dr. Kristina Mcginnis MD Primary Care Provider Active Start: December 30, 2024 End: December 30, 2024 Dr. Arturo Olivas MD Attending Provider Active Start: December 30, 2024 End: December 30, 2024 Dr. Arturo Olivas MD Referring Provider Active Start: December 30, 2024 End: December 30, 2024 Team Status: Active Member Role Status Dates Dr. Kristina Mcginnis MD Primary Care Provider Active Start: December 30, 2024 Dr. Dusty Valdez MD Attending Provider Active Start: December 30, 2024 Team Status: Active Member Role Status Dates Dr. Kristina Mcginnis MD Primary Care Provider Active Start: December 31, 2024 Dr. Kan Ang DO Attending Provider Active Start: December 31, 2024 Team Status: Inactive Member Role Status Dates Dr. Kristina Mcginnis MD Primary Care Provider Active Start: January 02, 2025 End: January 02, 2025 Dr. Kristina Mcginnis MD Referring Provider Active Start: January 02, 2025 End: January 02, 2025 Dr. Arturo Olivas MD Attending Provider Active Start: January 02, 2025 End: January 02, 2025 Team Status: Active Member Role Status Dates Dr. Kristina Mcginnis MD Primary Care Provider Active Start: January 03, 2025 Dr. Kan Ang DO Attending Provider Active Start: January 03, 2025 Team Status: Active Member Role Status Dates Dr. Kristina Mcginnis MD Primary Care Provider Active Start: January 06, 2025 Dr. Kan Ang DO Attending Provider Active Start: January 06, 2025 Team Status: Inactive Member Role Status Dates Dr. Kristina Mcginnis MD Primary Care Provider Active Start: January 08, 2025 End: January 08, 2025 Dr. Kristina Mcginnis MD Referring Provider Active Start: January 08, 2025 End: January 08, 2025 Dr. Kan Ang DO Attending Provider Active Start: January 08, 2025 End: January 08, 2025 Team Status: Active Member Role Status Dates Dr. Kristina Mcginnis MD Primary Care Provider Active Start: January 09, 2025 Dr. Kan Ang DO Attending Provider Active Start: January 09, 2025 Dr. Arturo Olivas MD Referring Provider Active Start: January 09, 2025 Team Status: Active Member Role Status Dates Dr. Kristina Mcginnis MD Primary Care Provider Active Start: December 26, 2024 Dr. Kan Ang DO Attending Provider Active Start: December 26, 2024 Dr. Kan Ang DO Referring Provider Active Start: December 26, 2024 Team Status: Active Member Role Status Dates Dr. Kristina Mcginnis MD Primary Care Provider Active Start: December 31, 2024 Dr. Kan Ang DO Attending Provider Active Start: December 31, 2024 Dr. Kan Ang DO Referring Provider Active Start: December 31, 2024 Team Status: Active Member Role Status Dates Dr. Kristina Mcginnis MD Primary Care Provider Active Start: January 03, 2025 Dr. Kan Ang DO Attending Provider Active Start: January 03, 2025 Dr. Kan Ang DO Referring Provider Active Start: January 03, 2025 Team Status: Active Member Role Status Dates Dr. Kristina Mcginnis MD Primary Care Provider Active Start: January 06, 2025 Dr. Kan Ang DO Attending Provider Active Start: January 06, 2025 Dr. Kan Ang DO Referring Provider Active Start: January 06, 2025 Team Status: Inactive Member Role Status Dates Dr. Kristina Mcginnis MD Primary Care Provider Active Start: January 08, 2025 End: January 08, 2025 Dr. Kan Ang DO Attending Provider Active Start: January 08, 2025 End: January 08, 2025 Dr. Kan Ang DO Referring Provider Active Start: January 08, 2025 End: January 08, 2025 Team Status: Inactive Member Role Status Dates Dr. Kristina Mcginnis MD Primary Care Provider Active Start: January 15, 2025 End: January 15, 2025 Dr. Kan Ang DO Attending Provider Active Start: January 15, 2025 End: January 15, 2025 Dr. Kan Ang DO Referring Provider Active Start: January 15, 2025 End: January 15, 2025 Team Status: Inactive Member Role Status Dates Dr. Kristina Mcginnis MD Primary Care Provider Active Start: January 22, 2025 End: January 22, 2025 Dr. Kan Ang DO Attending Provider Active Start: January 22, 2025 End: January 22, 2025 Dr. Kan Ang DO Referring Provider Active Start: January 22, 2025 End: January 22, 2025 Team Status: Inactive Member Role Status Dates Dr. Kristina Mcginnis MD Primary Care Provider Active Start: January 23, 2025 End: January 23, 2025 Dr. Kristina Mcginnis MD Referring Provider Active Start: January 23, 2025 End: January 23, 2025 Dr. Arturo Olivas MD Attending Provider Active Start: January 23, 2025 End: January 23, 2025 Team Status: Inactive Member Role Status Dates Dr. Kristina Mcginnis MD Primary Care Provider Active Start: January 27, 2025 End: January 27, 2025 Dr. Kan Ang DO Attending Provider Active Start: January 27, 2025 End: January 27, 2025 Dr. Kan Ang DO Referring Provider Active Start: January 27, 2025 End: January 27, 2025 Team Status: Inactive Member Role Status Dates Dr. Kristina Mcginnis MD Primary Care Provider Active Start: February 07, 2025 End: February 07, 2025 Dr. Kristina Mcginnis MD Referring Provider Active Start: February 07, 2025 End: February 07, 2025 Dr. Sridhar Fay MD Attending Provider Active S tart: February 07, 2025 End: February 07, 2025 Team Status: Inactive Member Role Status Dates Dr. Kristina Mcginnis MD Primary Care Provider Active Start: February 13, 2025 End: February 13, 2025 Dr. Kristina Mcginnis MD Referring Provider Active Start: February 13, 2025 End: February 13, 2025 Dr. Arturo Olivas MD Attending Provider Active Start: February 13, 2025 End: February 13, 2025 Team Status: Inactive Member Role Status Dates Dr. Kristina Mcginnis MD Primary Care Provider Active Start: March 06, 2025 End: March 06, 2025 Dr. Kristina Mcginnis MD Referring Provider Active Start: March 06, 2025 End: March 06, 2025 Dr. Kan Ang DO Attending Provider Active Start: March 06, 2025 End: March 06, 2025 Team Status: Inactive Member Role Status Dates Dr. Kristina Mcginnis MD Primary Care Provider Active Start: March 27, 2025 End: March 27, 2025 Dr. Kristina Mcginnis MD Referring Provider Active Start: March 27, 2025 End: March 27, 2025 Dr. Arturo Olivas MD Attending Provider Active Start: March 27, 2025 End: March 27, 2025 Team Status: Active Member Role Status Dates Dr. Kristina Mcginnis MD Primary Care Provider Active Start: March 27, 2025 Dr. Kan Ang DO Attending Provider Active Start: March 27, 2025 Dr. Arturo Olivas MD Referring Provider Active Start: March 27, 2025 Team Status: Inactive Member Role Status Dates Dr. Kristina Mcginnis MD Primary Care Provider Active Start: April 10, 2025 End: April 10, 2025 Dr. Arturo Oilvas MD Attending Provider Active Start: April 10, 2025 End: April 10, 2025 Dr. Arturo Olivas MD Referring Provider Active Start: April 10, 2025 End: April 10, 2025 Team Status: Active Member Role Status Dates Dr. Kristina Mcginnis MD Primary Care Provider Active Start: April 10, 2025 Dr. Sridhar Fay MD Attending Provider Active S tart: April 10, 2025 Team Status: Inactive Member Role Status Dates Dr. Kristina Mcginnis MD Primary Care Provider Active Start: April 17, 2025 End: April 17, 2025 Dr. Kristina Mcginnis MD Referring Provider Active Start: April 17, 2025 End: April 17, 2025 Dr. Arturo Olivas MD Attending Provider Active Start: April 17, 2025 End: April 17, 2025 Cable Lacer Relationship Specialty Start Date End Date Kristina Mcginnis MD [address] [place] [id number] PCP - General 07/02/19 Kristina Mcginnis MD [address] [address] PCP - [employer] Medicare Advantage PCP 10/30/21 Team Status: Active Member Role/Relationship Status Dates Dr. Kristina Mcginnis MD Primary Care Provider Active Team Status: Inactive Member Role/Relationship Status Dates Dr. Kristina Mcginnis MD Primary Care Provider Active Start: January 08, 2025 End: January 08, 2025 Dr. Kan Ang DO Attending Provider Active Start: January 08, 2025 End: January 08, 2025 Dr. Kan Ang DO Referring Provider Active Start: January 08, 2025 End: January 08, 2025 Team Status: Inactive Member Role/Relationship Status Dates Dr. Kristina Mcginnis MD Primary Care Provider Active Start: January 15, 2025 End: January 15, 2025 Dr. Kan Ang DO Attending Provider Active Start: January 15, 2025 End: January 15, 2025 Dr. Kan Ang DO Referring Provider Active Start: January 15, 2025 End: January 15, 2025 Team Status: Inactive Member Role/Relationship Status Dates Dr. Kristina Mcginnis MD Primary Care Provider Active Start: January 22, 2025 End: January 22, 2025 Dr. Kan Ang DO Attending Provider Active Start: January 22, 2025 End: January 22, 2025 Dr. Kan Ang DO Referring Provider Active Start: January 22, 2025 End: January 22, 2025 Team Status: Inactive Member Role/Relationship Status Dates Dr. Kristina Mcginnis MD Primary Care Provider Active Start: January 23, 2025 End: January 23, 2025 Dr. Kristina Mcginnis MD Referring Provider Active Start: January 23, 2025 End: January 23, 2025 Dr. Arturo Olivas MD Attending Provider Active Start: January 23, 2025 End: January 23, 2025 Team Status: Inactive Member Role/Relationship Status Dates Dr. Kristina Mcginnis MD Primary Care Provider Active Start: January 27, 2025 End: January 27, 2025 Dr. Kan Ang DO Attending Provider Active Start: January 27, 2025 End: January 27, 2025 Dr. Kan Ang DO Referring Provider Active Start: January 27, 2025 End: January 27, 2025 Team Status: Inactive Member Role/Relationship Status Dates Dr. Kristina Mcginnis MD Primary Care Provider Active Start: February 07, 2025 End: February 07, 2025 Dr. Kristina Mcginnis MD Referring Provider Active Start: February 07, 2025 End: February 07, 2025 Dr. Sridhar aFy MD Attending Provider Active S tart: February 07, 2025 End: February 07, 2025 Team Status: Inactive Member Role/Relationship Status Dates Dr. Kristina Mcginnis MD Primary Care Provider Active Start: February 13, 2025 End: February 13, 2025 Dr. Kristina Mcginnis MD Referring Provider Active Start: February 13, 2025 End: February 13, 2025 Dr. Arturo Olivas MD Attending Provider Active Start: February 13, 2025 End: February 13, 2025 Team Status: Inactive Member Role/Relationship Status Dates Dr. Kristina Mcginnis MD Primary Care Provider Active Start: March 06, 2025 End: March 06, 2025 Dr. Kristina Mcginnis MD Referring Provider Active Start: March 06, 2025 End: March 06, 2025 Dr. Kan Ang DO Attending Provider Active Start: March 06, 2025 End: March 06, 2025 Team Status: Inactive Member Role/Relationship Status Dates Dr. Kristina Mcginnis MD Primary Care Provider Active Start: March 27, 2025 End: March 27, 2025 Dr. Kristina Mcginnis MD Referring Provider Active Start: March 27, 2025 End: March 27, 2025 Dr. Arturo Olivas MD Attending Provider Active Start: March 27, 2025 End: March 27, 2025 Team Status: Inactive Member Role/Relationship Status Dates Dr. Kristina Mcginnis MD Primary Care Provider Active Start: April 10, 2025 End: April 10, 2025 Dr. Arturo Olivas MD Attending Provider Active Start: April 10, 2025 End: April 10, 2025 Dr. Arturo Olivas MD Referring Provider Active Start: April 10, 2025 End: April 10, 2025 Team Status: Active Member Role/Relationship Status Dates Dr. Kristina Mcginnis MD Primary Care Provider Active Start: April 10, 2025 Dr. Sridhar Fay MD Attending Provider Active S tart: April 10, 2025 Team Status: Inactive Member Role/Relationship Status Dates Dr. Kristina Mcginnis MD Primary Care Provider Active Start: April 17, 2025 End: April 17, 2025 Dr. Kristina Mcginnis MD Referring Provider Active Start: April 17, 2025 End: April 17, 2025 Dr. Arturo Olivas MD Attending Provider Active Start: April 17, 2025 End: April 17, 2025 Team Status: Inactive Member Role/Relationship Status Dates Dr. Kristina Mcginnis MD Primary Care Provider Active Start: May 08, 2025 End: May 08, 2025 Dr. Kristina Mcginnis MD Referring Provider Active Start: May 08, 2025 End: May 08, 2025 Dr. Arturo Olivas MD Attending Provider Active Start: May 08, 2025 End: May 08, 2025 Team Status: Active Member Role/Relationship Status Dates Dr. Kristina Mcginnis MD Primary Care Provider Active Start: May 08, 2025 Dr. Arturo Olivas MD Attending Provider Active Start: May 08, 2025 Dr. Arturo Olivas MD Referring Provider Active Start: May 08, 2025 Cable Lacer Relationship Specialty Start Date End Date Kristina Mcginnis MD [address] [phone] PCP - General 07/02/19 Kristina Mcginnis MD [address] [address] PCP - [employer] Medicare Advantage PCP 10/30/21 Team Status: Inactive Member Role/Relationship Status Dates Dr. Kristina Mcginnis MD Primary Care Provider Active Start: February 07, 2025 End: February 07, 2025 Dr. Kristina Mcginnis MD Referring Provider Active Start: February 07, 2025 End: February 07, 2025 Dr. Sridhar Fay MD Attending Provider Active S tart: February 07, 2025 End: February 07, 2025 Team Status: Inactive Member Role/Relationship Status Dates Dr. Kristina Mcginnis MD Primary Care Provider Active Start: February 13, 2025 End: February 13, 2025 Dr. Kristina Mcginnis MD Referring Provider Active Start: February 13, 2025 End: February 13, 2025 Dr. Arturo Olivas MD Attending Provider Active Start: February 13, 2025 End: February 13, 2025 Team Status: Inactive Member Role/Relationship Status Dates Dr. Kristina Mcginnis MD Primary Care Provider Active Start: March 06, 2025 End: March 06, 2025 Dr. Kristina Mcginnis MD Referring Provider Active Start: March 06, 2025 End: March 06, 2025 Dr. Kan Ang DO Attending Provider Active Start: March 06, 2025 End: March 06, 2025 Team Status: Inactive Member Role/Relationship Status Dates Dr. Kristina Mcginnis MD Primary Care Provider Active Start: March 27, 2025 End: March 27, 2025 Dr. Kristina Mcginnis MD Referring Provider Active Start: March 27, 2025 End: March 27, 2025 Dr. Arturo Olivas MD Attending Provider Active Start: March 27, 2025 End: March 27, 2025 Team Status: Inactive Member Role/Relationship Status Dates Dr. Kristina Mcginnis MD Primary Care Provider Active Start: April 10, 2025 End: April 10, 2025 Dr. Arturo Olivas MD Attending Provider Active Start: April 10, 2025 End: April 10, 2025 Dr. Arturo Olivas MD Referring Provider Active Start: April 10, 2025 End: April 10, 2025 Team Status: Active Member Role/Relationship Status Dates Dr. Kristina Mcginnis MD Primary Care Provider Active Start: April 10, 2025 Dr. Sridhar Fay MD Attending Provider Active S tart: April 10, 2025 Team Status: Inactive Member Role/Relationship Status Dates Dr. Kristina Mcginnis MD Primary Care Provider Active Start: April 17, 2025 End: April 17, 2025 Dr. Kristina Mcginnis MD Referring Provider Active Start: April 17, 2025 End: April 17, 2025 Dr. Arturo Olivas MD Attending Provider Active Start: April 17, 2025 End: April 17, 2025 Team Status: Inactive Member Role/Relationship Status Dates Dr. Kristina Mcginnis MD Primary Care Provider Active Start: May 08, 2025 End: May 08, 2025 Dr. Kristina Mcginnis MD Referring Provider Active Start: May 08, 2025 End: May 08, 2025 Dr. Arturo Olivas MD Attending Provider Active Start: May 08, 2025 End: May 08, 2025 Team Status: Inactive Member Role/Relationship Status Dates Dr. Kristina Mcginnis MD Primary Care Provider Active Start: May 29, 2025 End: May 29, 2025 Dr. Kristina Mcginnis MD Referring Provider Active Start: May 29, 2025 End: May 29, 2025 Dr. Darryl Real MD Attending Provider Active S tart: May 29, 2025 End: May 29, 2025 Team Status: Active Member Role/Relationship Status Dates Dr. Kristina Mcginnis MD Primary Care Provider Active Start: May 29, 2025 Dr. Arturo Olivas MD Attending Provider Active Start: May 29, 2025 Dr. Arturo Olivas MD Referring Provider Active Start: May 29, 2025 Cable Lacer Relationship Specialty Start Date End Date Kristina Mcginnis MD [facility] [place] [address] PCP - General 07/02/19 Kristina Mcginnis MD [address] [id number] PCP - [employer] Medicare Advantage PCP 10/30/21 Cable Lacer Relationship Specialty Start Date End Date Kristina Mcginnis MD [address] [address] PCP - General 07/02/19 Kristina Mcginnis MD [address] [address] PCP - [employer] Medicare Advantage PCP 10/30/21 Team Status: Inactive Member Role/Relationship Status Dates Dr. Kristina Mcginnis MD Primary Care Provider Active Start: March 06, 2025 End: March 06, 2025 Dr. Kristina Mcginnis MD Referring Provider Active Start: March 06, 2025 End: March 06, 2025 Dr. Kan Ang DO Attending Provider Active Start: March 06, 2025 End: March 06, 2025 Team Status: Inactive Member Role/Relationship Status Dates Dr. Kristina Mcginnis MD Primary Care Provider Active Start: March 27, 2025 End: March 27, 2025 Dr. rKistina Mcginnis MD Referring Provider Active Start: March 27, 2025 End: March 27, 2025 Dr. Arturo Olivas MD Attending Provider Active Start: March 27, 2025 End: March 27, 2025 Team Status: Inactive Member Role/Relationship Status Dates Dr. Kristina Mcginnis MD Primary Care Provider Active Start: April 10, 2025 End: April 10, 2025 Dr. Arturo Olivas MD Attending Provider Active Start: April 10, 2025 End: April 10, 2025 Dr. Arturo Olivas MD Referring Provider Active Start: April 10, 2025 End: April 10, 2025 Team Status: Active Member Role/Relationship Status Dates Dr. Kristina Mcginnis MD Primary Care Provider Active Start: April 10, 2025 Dr. Sridhar Fay MD Attending Provider Active S tart: April 10, 2025 Team Status: Inactive Member Role/Relationship Status Dates Dr. Kristina Mcginnis MD Primary Care Provider Active Start: April 17, 2025 End: April 17, 2025 Dr. Kristina Mcginnis MD Referring Provider Active Start: April 17, 2025 End: April 17, 2025 Dr. Arturo Olivas MD Attending Provider Active Start: April 17, 2025 End: April 17, 2025 Team Status: Inactive Member Role/Relationship Status Dates Dr. Kristina Mcginnis MD Primary Care Provider Active Start: May 08, 2025 End: May 08, 2025 Dr. Kristina Mcginnis MD Referring Provider Active Start: May 08, 2025 End: May 08, 2025 Dr. Arturo Olivas MD Attending Provider Active Start: May 08, 2025 End: May 08, 2025 Team Status: Inactive Member Role/Relationship Status Dates Dr. Kristina Mcginnis MD Primary Care Provider Active Start: May 29, 2025 End: May 29, 2025 Dr. Kristina Mcginnis MD Referring Provider Active Start: May 29, 2025 End: May 29, 2025 Dr. Darryl Real MD Attending Provider Active S tart: May 29, 2025 End: May 29, 2025 Team Status: Active Member Role/Relationship Status Dates Dr. Kristina Mcginnis MD Primary Care Provider Active Start: June 13, 2025 Dr. Kan Ang DO Attending Provider Active Start: June 13, 2025 Dr. Kan Ang DO Referring Provider Active Start: June 13, 2025 Team Status: Inactive Member Role/Relationship Status Dates Dr. Kristina Mcginnis MD Primary Care Provider Active Start: June 19, 2025 End: June 19, 2025 Dr. Kristina Mcginnis MD Referring Provider Active Start: June 19, 2025 End: June 19, 2025 Dr. Arturo Olivas MD Attending Provider Active Start: June 19, 2025 End: June 19, 2025 Team Status: Active Member Role/Relationship Status Dates Dr. Kristina Mcginnis MD Primary Care Provider Active Start: June 19, 2025 Dr. Arturo Olivas MD Attending Provider Active Start: June 19, 2025 Dr. Arturo Olivas MD Referring Provider Active Start: June 19, 2025 Team Status: Inactive Member Role/Relationship Status Dates Dr. Kristina Mcginnis MD Primary Care Provider Active Start: June 13, 2025 End: June 13, 2025 Dr. Kan Ang DO Attending Provider Active Start: June 13, 2025 End: June 13, 2025 Dr. Kan Ang DO Referring Provider Active Start: June 13, 2025 End: June 13, 2025 Team Status: Active Member Role/Relationship Status Dates Dr. Kristina Mcginnis MD Primary Care Provider Active Start: June 19, 2025 Dr. Arturo Olivas MD Attending Provider Active Start: June 19, 2025 Dr. Arturo Olivas MD Referring Provider Active Start: June 19, 2025 Team Status: Inactive Member Role/Relationship Status Dates Dr. Kristina Mcginnis MD Primary Care Provider Active Start: June 19, 2025 End: June 19, 2025 Dr. Arturo Olivas MD Attending Provider Active Start: June 19, 2025 End: June 19, 2025 Dr. Arturo Olivas MD Referring Provider Active Start: June 19, 2025 End: June 19, 2025 Team Status: Inactive Member Role/Relationship Status Dates Dr. Kristina Mcginnis MD Primary Care Provider Active Start: March 27, 2025 End: March 27, 2025 Dr. Kristina Mcginnis MD Referring Provider Active Start: March 27, 2025 End: March 27, 2025 Dr. Arturo Olivas MD Attending Provider Active Start: March 27, 2025 End: March 27, 2025 Team Status: Inactive Member Role/Relationship Status Dates Dr. Kristina Mcginnis MD Primary Care Provider Active Start: April 10, 2025 End: April 10, 2025 Dr. Arturo Olivas MD Attending Provider Active Start: April 10, 2025 End: April 10, 2025 Dr. Arturo Olivas MD Referring Provider Active Start: April 10, 2025 End: April 10, 2025 Team Status: Active Member Role/Relationship Status Dates Dr. Kristina Mcginnis MD Primary Care Provider Active Start: April 10, 2025 Dr. Sridhar Fay MD Attending Provider Active S tart: April 10, 2025 Team Status: Inactive Member Role/Relationship Status Dates Dr. Kristina Mcginnis MD Primary Care Provider Active Start: April 17, 2025 End: April 17, 2025 Dr. Kristina Mcginnis MD Referring Provider Active Start: April 17, 2025 End: April 17, 2025 Dr. Arturo Olivas MD Attending Provider Active Start: April 17, 2025 End: April 17, 2025 Team Status: Inactive Member Role/Relationship Status Dates Dr. Kristina Mcginnis MD Primary Care Provider Active Start: May 08, 2025 End: May 08, 2025 Dr. Kristina Mcginnis MD Referring Provider Active Start: May 08, 2025 End: May 08, 2025 Dr. Arturo Olivas MD Attending Provider Active Start: May 08, 2025 End: May 08, 2025 Team Status: Inactive Member Role/Relationship Status Dates Dr. Kristina Mcginnis MD Primary Care Provider Active Start: May 29, 2025 End: May 29, 2025 Dr. Kristina Mcginnis MD Referring Provider Active Start: May 29, 2025 End: May 29, 2025 Dr. Darryl Real MD Attending Provider Active S tart: May 29, 2025 End: May 29, 2025 Team Status: Inactive Member Role/Relationship Status Dates Dr. Kristina Mcginnis MD Primary Care Provider Active Start: June 13, 2025 End: June 13, 2025 Dr. Kan Ang DO Attending Provider Active Start: June 13, 2025 End: June 13, 2025 Dr. Kan Ang DO Referring Provider Active Start: June 13, 2025 End: June 13, 2025 Team Status: Inactive Member Role/Relationship Status Dates Dr. Kristina Mcginnis MD Primary Care Provider Active Start: June 19, 2025 End: June 19, 2025 Dr. Kristina Mcginnis MD Referring Provider Active Start: June 19, 2025 End: June 19, 2025 Dr. Arturo Olivas MD Attending Provider Active Start: June 19, 2025 End: June 19, 2025 Team Status: Active Member Role/Relationship Status Dates Dr. Kristina Mcginnis MD Primary Care Provider Active Start: June 19, 2025 Dr. Arturo Olivas MD Attending Provider Active Start: June 19, 2025 Dr. Arturo Olivas MD Referring Provider Active Start: June 19, 2025 Team Status: Inactive Member Role/Relationship Status Dates Dr. Kristina Mcginnis MD Primary Care Provider Active Start: June 19, 2025 End: June 19, 2025 Dr. Arturo Olivas MD Attending Provider Active Start: June 19, 2025 End: June 19, 2025 Dr. Arturo Olivas MD Referring Provider Active Start: June 19, 2025 End: June 19, 2025 Team Status: Active Member Role/Relationship Status Dates Dr. Michoacano Dewey MD Attending Provider Active Start: June 19, 2025 Dr. Arturo Olivas MD Referring Provider Active Start: June 19, 2025 Team Status: Inactive Member Role/Relationship Status Dates Dr. Kristina Mcginnis MD Primary Care Provider Active Start: July 07, 2025 End: July 07, 2025 Dr. Kristina Mcginnis MD Referring Provider Active Start: July 07, 2025 End: July 07, 2025 Dr. Kan Ang DO Attending Provider Active Start: July 07, 2025 End: July 07, 2025 Team Status: Inactive Member Role/Relationship Status Dates Dr. Kristina Mcginnis MD Primary Care Provider Active Start: June 19, 2025 End: June 19, 2025 Dr. Arturo Olivas MD Attending Provider Active Start: June 19, 2025 End: June 19, 2025 Dr. Arturo Olivas MD Referring Provider Active Start: June 19, 2025 End: June 19, 2025 Team Status: Active Member Role/Relationship Status Dates Dr. Michoacano Dewey MD Attending Provider Active Start: June 19, 2025 Dr. Arturo Olivas MD Referring Provider Active Start: June 19, 2025 Team Status: Inactive Member Role/Relationship Status Dates Dr. Kristina Mcginnis MD Primary Care Provider Active Start: July 07, 2025 End: July 07, 2025 Dr. Kristina Mcginnis MD Referring Provider Active Start: July 07, 2025 End: July 07, 2025 Dr. Kan Ang DO Attending Provider Active Start: July 07, 2025 End: July 07, 2025 Team Status: Inactive Member Role/Relationship Status Dates Dr. Kristina Mcginnis MD Primary Care Provider Active Start: July 10, 2025 End: July 10, 2025 Dr. Kristina Mcginnis MD Referring Provider Active Start: July 10, 2025 End: July 10, 2025 Dr. Arturo Olivas MD Attending Provider Active Start: July 10, 2025 End: July 10, 2025 Team Status: Active Member Role/Relationship Status Dates Dr. Kristina Mcginnis MD Primary Care Provider Active Start: July 10, 2025 Dr. Arturo Olivas MD Attending Provider Active Start: July 10, 2025 Dr. Arturo Olivas MD Referring Provider Active Start: July 10, 2025 Cable Lacer Relationship Specialty Start Date End Date Kristina Mcginnis MD [address] [id number] PCP - General 07/02/19 Kristina Mcginnis MD [address] [address] PCP - [employer] Medicare Advantage PCP 10/30/21 Team Status: Active Member Role/Relationship Status Dates Dr. Kristina Mcginnis MD Primary care physician Active Team Status: Inactive Member Role/Relationship Status Dates Dr. Kristina Mcginnis MD Primary care physician Active Start: April 10, 2025 End: April 10, 2025 Dr. Arturo Olivas MD Attending physician Active Start: April 10, 2025 End: April 10, 2025 Dr. Arturo Olivas MD Referring Provider Active Start: April 10, 2025 End: April 10, 2025 Team Status: Active Member Role/Relationship Status Dates Dr. Kristina Mcginnis MD Primary care physician Active Start: April 10, 2025 Dr. Sridhar Fay MD Attending physician Active Start: April 10, 2025 Team Status: Inactive Member Role/Relationship Status Dates Dr. Kristina Mcginnis MD Primary care physician Active Start: April 17, 2025 End: April 17, 2025 Dr. Kristina Mcginnis MD Referring Provider Active Start: April 17, 2025 End: April 17, 2025 Dr. Arturo Olivas MD Attending physician Active Start: April 17, 2025 End: April 17, 2025 Team Status: Inactive Member Role/Relationship Status Dates Dr. Kristina Mcginnis MD Primary care physician Active Start: May 08, 2025 End: May 08, 2025 Dr. Kristina Mcginnis MD Referring Provider Active Start: May 08, 2025 End: May 08, 2025 Dr. Arturo Olivas MD Attending physician Active Start: May 08, 2025 End: May 08, 2025 Team Status: Inactive Member Role/Relationship Status Dates Dr. Kristina Mcginnis MD Primary care physician Active Start: May 29, 2025 End: May 29, 2025 Dr. Kristina Mcginnis MD Referring Provider Active Start: May 29, 2025 End: May 29, 2025 Dr. Darryl Real MD Attending physician Active Start: May 29, 2025 End: May 29, 2025 Team Status: Inactive Member Role/Relationship Status Dates Dr. Kristina Mcginnis MD Primary care physician Active Start: June 13, 2025 End: June 13, 2025 Dr. Kan Ang DO Attending physician Active Start: June 13, 2025 End: June 13, 2025 Dr. Kan Ang DO Referring Provider Active Start: June 13, 2025 End: June 13, 2025 Team Status: Inactive Member Role/Relationship Status Dates Dr. Kristina Mcginnis MD Primary care physician Active Start: June 19, 2025 End: June 19, 2025 Dr. Kristina Mcginnis MD Referring Provider Active Start: June 19, 2025 End: June 19, 2025 Dr. Arturo Olivas MD Attending physician Active Start: June 19, 2025 End: June 19, 2025 Team Status: Inactive Member Role/Relationship Status Dates Dr. Kristina Mcginnis MD Primary care physician Active Start: June 19, 2025 End: June 19, 2025 Dr. Arturo Olivas MD Attending physician Active Start: June 19, 2025 End: June 19, 2025 Dr. Arturo Olivas MD Referring Provider Active Start: June 19, 2025 End: June 19, 2025 Team Status: Active Member Role/Relationship Status Dates Dr. Michoacano Dewey MD Attending physician Active Start: June 19, 2025 Dr. Arturo Olivas MD Referring Provider Active Start: June 19, 2025 Team Status: Inactive Member Role/Relationship Status Dates Dr. Kristina Mcginnis MD Primary care physician Active Start: July 07, 2025 End: July 07, 2025 Dr. Kristina Mcginnis MD Referring Provider Active Start: July 07, 2025 End: July 07, 2025 Dr. Kan Ang DO Attending physician Active Start: July 07, 2025 End: July 07, 2025 Team Status: Inactive Member Role/Relationship Status Dates Dr. Kristina Mcginnis MD Primary care physician Active Start: July 10, 2025 End: July 10, 2025 Dr. Kristina Mcginnis MD Referring Provider Active Start: July 10, 2025 End: July 10, 2025 Dr. Arturo Olivas MD Attending physician Active Start: July 10, 2025 End: July 10, 2025 Team Status: Inactive Member Role/Relationship Status Dates Dr. Kristina Mcginnis MD Primary care physician Active Start: July 31, 2025 End: July 31, 2025 Dr. Kristina Mcginnis MD Referring Provider Active Start: July 31, 2025 End: July 31, 2025 Dr. Arturo Olivas MD Attending physician Active Start: July 31, 2025 End: July 31, 2025 Team Status: Active Member Role/Relationship Status Dates Dr. Kristina Mcginnis MD Primary care physician Active Start: July 31, 2025 Dr. Arturo Olivas MD Attending physician Active Start: July 31, 2025 Dr. Arturo Olivas MD Referring Provider Active Start: July 31, 2025 Cable Lacer Relationship Specialty Start Date End Date Kristina Mcginnis MD [address] [phone] PCP - General 07/02/19 Kristina Mcginnis MD [address] [id number] PCP - [employer] Medicare Advantage PCP 10/30/21 Team Status: Inactive Member Role/Relationship Status Dates Dr. Kristina Mcginnis MD Primary care physician Active Start: May 08, 2025 End: May 08, 2025 Dr. Kristina Mcginnis MD Referring Provider Active Start: May 08, 2025 End: May 08, 2025 Dr. Arturo Olivas MD Attending physician Active Start: May 08, 2025 End: May 08, 2025 Team Status: Inactive Member Role/Relationship Status Dates Dr. Kristina Mcginnis MD Primary care physician Active Start: May 29, 2025 End: May 29, 2025 Dr. Kristina Mcginnis MD Referring Provider Active Start: May 29, 2025 End: May 29, 2025 Dr. Darryl Real MD Attending physician Active Start: May 29, 2025 End: May 29, 2025 Team Status: Inactive Member Role/Relationship Status Dates Dr. Kristina Mcginnis MD Primary care physician Active Start: June 13, 2025 End: June 13, 2025 Dr. Kan Ang DO Attending physician Active Start: June 13, 2025 End: June 13, 2025 Dr. Kan Ang DO Referring Provider Active Start: June 13, 2025 End: June 13, 2025 Team Status: Inactive Member Role/Relationship Status Dates Dr. Kristina Mcginnis MD Primary care physician Active Start: June 19, 2025 End: June 19, 2025 Dr. Kristina Mcginnis MD Referring Provider Active Start: June 19, 2025 End: June 19, 2025 Dr. Arturo Olivas MD Attending physician Active Start: June 19, 2025 End: June 19, 2025 Team Status: Inactive Member Role/Relationship Status Dates Dr. Kristina Mcginnis MD Primary care physician Active Start: June 19, 2025 End: June 19, 2025 Dr. Arturo Olivas MD Attending physician Active Start: June 19, 2025 End: June 19, 2025 Dr. Arturo Olivas MD Referring Provider Active Start: June 19, 2025 End: June 19, 2025 Team Status: Active Member Role/Relationship Status Dates Dr. Michoacano Dewey MD Attending physician Active Start: June 19, 2025 Dr. Arturo Olivas MD Referring Provider Active Start: June 19, 2025 Team Status: Inactive Member Role/Relationship Status Dates Dr. Kristina Mcginnis MD Primary care physician Active Start: July 07, 2025 End: July 07, 2025 Dr. Kristina Mcginnis MD Referring Provider Active Start: July 07, 2025 End: July 07, 2025 Dr. Kan Ang DO Attending physician Active Start: July 07, 2025 End: July 07, 2025 Team Status: Inactive Member Role/Relationship Status Dates Dr. Kristina Mcginnis MD Primary care physician Active Start: July 10, 2025 End: July 10, 2025 Dr. Kristina Mcginnis MD Referring Provider Active Start: July 10, 2025 End: July 10, 2025 Dr. Arturo Olivas MD Attending physician Active Start: July 10, 2025 End: July 10, 2025 Team Status: Inactive Member Role/Relationship Status Dates Dr. Kristina Mcginnis MD Primary care physician Active Start: July 31, 2025 End: July 31, 2025 Dr. Kristina Mcginnis MD Referring Provider Active Start: July 31, 2025 End: July 31, 2025 Dr. Arturo Olivas MD Attending physician Active Start: July 31, 2025 End: July 31, 2025 Team Status: Inactive Member Role/Relationship Status Dates Dr. Kristina Mcginnis MD Primary care physician Active Start: August 04, 2025 End: August 04, 2025 Dr. Arturo Olivas MD Attending physician Active Start: August 04, 2025 End: August 04, 2025 Dr. Arturo Olivas MD Referring Provider Active Start: August 04, 2025 End: August 04, 2025 Team Status: Active Member Role/Relationship Status Dates Dr. Kristina Mcginnis MD Primary care physician Active Start: August 04, 2025 Dr. Sridhar Fay MD Attending physician Active Start: August 04, 2025 Team Status: Inactive Member Role/Relationship Status Dates Dr. Kristina Mcginnis MD Primary care physician Active Start: August 21, 2025 End: August 21, 2025 Dr. Kristina Mcginnis MD Referring Provider Active Start: August 21, 2025 End: August 21, 2025 Dr. Arturo Olivas MD Attending physician Active Start: August 21, 2025 End: August 21, 2025 Team Status: Active Member Role/Relationship Status Dates Dr. Kristina Mcginnis MD Primary care physician Active Start: August 21, 2025 Dr. Arturo Olivas MD Attending physician Active Start: August 21, 2025 Dr. Arturo Olivas MD Referring Provider Active Start: August 21, 2025 Goals (unrecognized section and content) Goals may be documented in a n alternate sectionGoals may be documented in an alternate sectionGoals may be documented in an alternate sectionGoals may be documented in an alternate sectionGoals may be documented in an alternate sectionGoals may be documented in an alternate sectionGoals may be documented in an alternate sectionGoals may be documented in an alternate sectionGoals may be documented in an alternate sectionGoals may be documented in an alternate sectionGoals may be documented in an alternate sectionGoals may be documented in an alternate sectionGoals may be documented in an alternate sectionGoals may be documented in an alternate sectionGoals may be documented in an alternate sectionGoals may be documented in an alternate section <item><item> Privacy Markings (unrecogniz ed section and content) Section Author: Beatrice Rosas PROHIBITION ON REDISCLOSURE OF CONFIDENTIAL INFORMATION This notice accompanies a disclosure of information concerning a client made to you with the consent of such client. Section Author: Beatrice Rosas PROHIBITION ON REDISCLOSURE OF CONFIDENTIAL INFORMATION This notice accompanies a disclosure of information concerning a client made to you with the consent of such client. FOR RECORDS PERTAINING TO PATIENTS WHO ARE OR HAVE BEEN ENROLLED IN A CHEMICAL DEPENDENCY/SUBSTANCEABUSE PROGRAM, SOME INFORMATION MAY BE OMITTED. This clinical summary was aggregated from multiple sources. Caution should be exercised in using it in the provision of clinical care. This summary normalizes information from multiple sources, and as a consequence, information in this document may materially change the coding, format and clinical context of patient data. In addition, data may be omitted in some cases. CLINICAL DECISIONS SHOULD BE BASED ON THE PRIMARY CLINICAL RECORDS. [employer] [facility] provides no warranty or guarantee of the accuracy or completeness of information in this document.
[2025-10-21] MEDS: Lactated Ringers 1,000 ML 15 ML IV (12:28)
[2025-10-21 12:32] LABS: Hematocrit 41.9 % (37-47); Hemoglobin 14.5 g/dL (12.0-15.0); Mean Corp Hgb Conc 34.6 g/dL (32-36); Mean Corpuscular Volume 86.6 fL (81-99); Mean Platelet Vol. 9.4 fl (6.2-12.0); Platelet Count 218 K/mm3 (150-450); RBC Distribution Width CV 12.7 % (11.6-14.6); RBC Distribution Width SD 39.8 fl (35.1-43.9); Red Blood Count 4.84 M/mm3 (4.2-5.4); White Blood Count 4.8 K/mm3 (4.4-11.0)
--- NOTE | 2025-10-21 12:37 | PCM.PRE.AN2 ---
ASA Classification* ASA Classification ASA Classification: 3 Assessment & Plan Anesthesia* Anesthesia Assessment Anesthesia Assessment: Discussed sedation and/or anesthesia options, risks, benefits, and alternatives with patient/parents/legal guardian/POA. Questions invited. The patient/parents/legal guardian/POA seems to understand and agrees to proceed with anesthesia plan. Reviewed the physical assessment, medical history, allergy history and patient home medications list prior to surgery/procedure/anesthetic and documented any changes. Performed airway and anesthesia risk assessments. Anesthesia Type Anesthesia Type: MAC History Source History Obtained from:: Patient and Chart Anesthesia Focused Assessment* Temperature: 97.6 F Pulse Rate: 67 Blood Pressure: 145/61 Respiratory Rate: 18 Pulse Ox: 98 Airway Assessment Mouth opens: >3 cm Mallampati Score: II Teeth Condition: Caps/Crowns (Patient has a crown. It is tight.) Neck Range of motion (ROM): Limited ROM (Slight Decrease) Labs Anesthesia Preop lab: CBC WBC, (4.4-11.0) 4.8 K/mm3 Today, 12:20 RBC, (4.2-5.4) 4.84 M/mm3 Today, 12:20 Hgb, (12.0-15.0) 14.5 g/dL Today, 12:20 Hct, (37-47) 41.9 % Today, 12:20 Plt Count, (150-450) 218 K/mm3 Today, 12:20 CHEMISTRY Potassium, (3.3-5.1) 4.2 mmol/L 07/31/25, 10:34 Sodium, (133-145) 140 mmol/L 07/31/25, 10:34 Magnesium, (1.5-2.2) 2.3 mg/dL H 06/19/25, 09:36 Phosphorus, (2.7-4.5) 3.2 mg/dL 06/19/25, 09:36 BUN, (4-19) 13 mg/dL 07/31/25, 10:34 Creatinine, (0.70-1.20) 0.55 mg/dL L 07/31/25, 10:34 Glucose, (70-99) 93 mg/dL 07/31/25, 10:34 COAG PT, (11.7-14.9) 14.0 SECONDS 07/11/24, 08:10 Pre-Assessment Diagnosis/Proposed Procedure Planned Operative Procedure(s): Hysteroscopy,Dilation and Curettage, Polypectomy Anesthesia History 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 When Was Last Pacemaker Check QUESTION #4 FULL TEXT: You/Your Family Experience fever (hyperthermia) with Anesthesia Last Oral Intake Last Oral intake: Last Oral Intake NPO since 00:00 10/21/25 12:10 Meds taken in AM with sips of No 10/21/25 12:10 water? Meds patient instructed to take am of surgery PONV PONV - computational scientist: PONV - computational scientist Female Yes 10/14/25 09:18 HX of Motion Sickness No 10/14/25 09:18 HX of N/V After Surgery No 10/14/25 09:18 Non-Smoker Yes 10/14/25 09:18 Duration of Surgery greater No 10/14/25 09:18 than 60 minutes Number of Risk Factors 2 10/14/25 09:18 PONV Score Moderate Risk 10/14/25 09:18 Height & Weight Height & Weight: Anesthesia: Height & Weight Height 5 ft 8 in 10/21/25 12:10 Weight: 80.3 kg 10/21/25 12:10 Body Mass Index (BMI) 26.9 10/21/25 12:10 Respiratory Assessment Respiratory Assessment - computational scientist: Respiratory Tract Infection Hx - computational scientist Hx Respiratory Tract Infection No 10/14/25 09:18 STOP Sleep Apnea STOP Sleep Apnea - computational scientist: STOP Sleep Apnea - computational scientist Hx Hypertension No 10/14/25 09:18 Hx Sleep Apnea No 10/14/25 09:18 CPAP No 10/14/25 09:18 BIPAP No 10/14/25 09:18 Do you snore loudly (louder No 10/14/25 09:18 than talking or can be heard Do you often feel tired/ No 10/14/25 09:18 fatigued/ sleepy during daytime? Has anyone observed you stop No 10/14/25 09:18 breathing during sleep? STOP Results Negative 10/14/25 09:18 QUESTION #5 FULL TEXT : Do you snore loudly (louder than talking or can be heard through closed doors)? 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 Specify any problems Hx of Preganancy in last 3 No 10/14/25 09:18 Months Nurse Filling Out Transfusion VCHRISTIN 10/14/25 09:18 & Questions: Date: 10/14/25 10/14/25 09:18 Time: 09:19 10/14/25 09:18 Patient unable to answer at this time (ie. confused, unrespo /Reproduction History /Reproductive History - computational scientist: /Reproductive Hx- computational scientist Hx Now No 10/14/25 09:18 Gestational Age (in weeks): EDC: Hx Hx Para Hx Section SAB No 10/14/25 09:18 Does the father of the baby or his family experience fever w Father of the baby Malignant Hypertension history comment Active Medications Active Medications: Current Medications Generic Name Dose Route Start Last Admin Trade Name Freq PRN Reason Stop Dose Admin Lactated Ringer's 1,000 mls @ 15 mls/hr 10/21/25 12:00 10/21/25 12:28 IV 15 mls/hr .Q48H LAURO Administration PFSH Medical History History of Holter monitoring History of echocardiogram Cardiology follow-up encounter Fractured fibula Pulmonary embolism DVT (deep venous thrombosis) Encounter for monoclonal antibody treatment for malignancy HER2-positive carcinoma of breast Hypokalemia Lymphedema of right upper extremity Acid reflux Drug induced neutropenia Encounter for chemotherapy management Encounter for education Post-menopausal Back pain Injury of back History of stress test History of irregular heartbeat COVID ER+ (estrogen receptor positive status) Wears glasses Cancer Easy bruising Lightheadedness Heartburn Non-smoker History of colonic polyps Breast cancer, left breast (~05/2021) Multinodular non-toxic goiter Home Medications ?Medication ?Instructions ?Recorded ?Last Taken ?Type calcium 600 mg (as 1 cap PO BID 11/08/21 07/10/24 History carbonate)-vitamin D3 12.5 mcg (500 unit) capsule (Calcium with Vit D3) losartan 100 mg tablet 100 mg PO QDAY #90 tabs 09/12/25 10/20/25 Rx simvastatin 20 mg tablet 20 mg PO QHS #90 tabs 09/12/25 10/20/25 Rx Allergy/AdvReac Type Severity Reaction Status Date / Time naproxen (From Naprosyn) AdvReac Severe Hives Verified 10/14/25 09:12 tamoxifen AdvReac Unknown DVT Verified 10/14/25 09:12 Family History Brother Colon cancer Hypertension Cancer Leukemia Mother Breast cancer Sister Breast cancer Lymphoma Hypertension Aunt Breast cancer Surgical History Hx of surgical procedure Hx of partial mastectomy S/P lumpectomy, right breast History of lung surgery History of lumpectomy of left breast (~06/2021) Hx of tubal ligation History of colonoscopy (~03/2017) History of left breast biopsy (~05/2021) History of right breast biopsy (~1980) Social History household members: spouse Smoking Status: Never smoker second hand exposure: No alcohol intake: never substance use type: does not use caffeine: No carly/presybeterian: Oriental [employer] seatbelt use: always do you feel safe at home: Yes Review of Systems (Anesthesia) ROS Narrative System reviewed and no additional complaints, except as documented.
[2025-10-21] MEDS: Midazolam 2 MG/2 ML Syringe IV (13:11)
--- NOTE | 2025-10-21 13:12 | DCINST_ITS ---
Discharge Instructions DC O2, CPAP, BIPAP needs Home O2 Discharge instructions: No Dressing / Incision Discharge Activity: Return to Normal Activity, May Shower and May Take a Tub Bath (after 1 week) May resume sexual activity in: 1-2 weeks Weight Bearing Status: Weight bearing as tolerated Lifting Restrictions: none Dressing / Incision Call your doctor if you observe: Fever of 101 or Higher, Using more than 1 pad per hour, Shortness of breath and Uncontrolled pain Follow Up Care Please Follow Up With: Keisha Mayberry DO When: Call [phone] to schedule appointment. Test Results: Test results from this visit will be discussed in further detail at your follow- up appointment, if applicable. Discharge Plan Admission Primary Reason for Your Visit: hysteroscopy D&C Attending Provider: Keisha Mayberry Primary Care Provider: Angel Mcginnis Instructions Print Language: Bengali Discharge Orders/Prescriptions Prescriptions: Continued calcium carbonate-vitamin D3 [Calcium 600 with Vitamin D3] 600 mg-12.5 mcg (500 unit) capsule 1 cap PO BID simvastatin 20 mg tablet 20 mg PO QHS Qty: 90 3RF losartan 100 mg tablet 100 mg PO QDAY Qty: 90 3RF Referrals / Follow Up: Angel Mcginnis MD [Primary Care Provider, Family Practice] Disposition Disposition (needs filled in before D/C Order can be placed): Home, Self Care
[2025-10-21] MEDS: Lidocaine 1% (20 ml mdv) 20 ML Vial (13:29)
--- NOTE | 2025-10-21 13:30 | EMB_PTH ---
PATIENT: REBA BECKFORD LOC: [facility] [place] U#:[id number] AGE/SX: 74/F ROOM: RE10/21/[address]: Dr. Keisha Mayberry DO : 1950 BED: DIS: 10/21/2025 SPEC #: [id number] RECD: 10/21/25 14:00 STATUS: KEYONNA LIZZY #: [id number] ARNIE: 10/21/25 13:[address]: Keisha Mayberry DEPT: SURGICAL PATHOLOGY RECD BY: Rob Nava ENTERED: 10/21/25 14:39 SP TYPE: ENDOM BX/C OTHR DR: Dr. Angel Mcginnis MD Tissues: A - Endometrium, NOS Procedures: Surgery Specimen Level IV HEADER OPERATION: Hysteroscopy, dilation and curettage, polypectomy PRE-OP DIAGNOSIS: Postmenopausal bleeding N95.0 TISSUE SUBMITTED: A. Endometrial curettings MICROSCOPIC DIAGNOSIS A. Endometrium, curettage: - Scant superficial inactive endometrium - see note. Note: Most of the specimen consists of blood. A limited amount of endometrium is present. Clinical correlation is necessary to assess the adequacy of the sampling. MICROSCOPIC DESCRIPTION Slides are reviewed. GROSS DESCRIPTION A. Received in formalin labeled with the patient's name and date of . Designated as endometrial curettings is a 2.4 x 1.1 x 0.2 cm aggregate of pink-red tissue fragments and clotted blood. Entirely submitted in 1 cassette. MO 10/21/2025 CPT:74177
--- NOTE | 2025-10-21 13:39 | OP.PCM_ITS ---
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: No Type of Anesthesia: MAC/Supplemental RN Documented Start/Stop Times: Operation Date: 10/21/25 13:30 Case Time Into Pre-Op 10/21/25 11:57 Out of Pre-Op 10/21/25 13:06 Anesthesia Start 10/21/25 13:11 Into Room 10/21/25 13:11 Procedure Start 10/21/25 13:24 Procedure End 10/21/25 13:34 Procedure Start Time: 13:24 Procedure Stop Time: 13:34 Select all DRAINS/GRAFTS/IMPLANTS that apply: None Estimated Blood Loss: 0 Specimen collected: Yes Description of specimen(s) removed: endometrial curetting's/products of conception Description of surgery: Patient was taken to the operating room and placed under MAC local anesthesia. She was prepped and draped in the normal sterile fashion the dorsal lithotomy position. Bladder was drained of clear urine and anterior lip of the cervix was grasped and the uterus sounded to 10cm. Cervix was progressively dilated to allow passage of a 5 mm hysteroscope. a small old blood clot was noted within the endometrium. The endometrium appeared atrophic. a curettage was performed removing scant tissue. All instruments were removed from the vagina and excellent hemostasis was noted and the patient was taken to recovery in stable condition. Surgical Findings: small amount of endometrial curettings Complications Complications: No Admit VTE Documentation VTE Present on Admission: No VTE Mechan Device Prophylaxis: SCD's VTE Pharm Prophylaxis ordered?: No
--- NOTE | 2025-10-21 13:47 | PCM.POST.ANE ---
Anesthesia: Postop Eval I Current Vital Signs Temperature: 98 F Pulse Rate: 80 Blood Pressure: 121/60 Respiratory Rate: 16 Pulse Ox: 97 Assessment Airway patent: Yes Spontaneous unlabored respirations: Yes nausea: No Vomiting: No Anesthesia Complication: No Fluid Hydration Crystalloid volume administer (ml): 400 Total IV fluid infused: 400 Progress Note Anesthesia document: Postop Eval 1 completed: Yes
--- NOTE | 2025-10-21 18:28 | POSTOPAN2_ITS ---
Anesthesia Postop Eval I Sum Postop Eval Completion status Anesthesia document: Postop Eval 1 completed: Yes Anesthesia Postop Eval I Summary Anesthesia Postop Eval I Summary: Anesthesia Postop Eval I: Assessment Summary Airway patent Yes 10/21/25 13:47 PEDIATRIC CRITICAL CARE NURSE.AHUF Spontaneous unlabored Yes 10/21/25 13:47 PEDIATRIC CRITICAL CARE NURSE.UF respirations Mental status nausea No 10/21/25 13:47 PEDIATRIC CRITICAL CARE NURSE.AHUF Vomiting No 10/21/25 13:47 PEDIATRIC CRITICAL CARE NURSE.UF Anesthesia Postop Eval I: Fluid Summary Crystalloid volume administer 400 10/21/25 13:47 PEDIATRIC CRITICAL CARE NURSE.AHUF (ml) Colloids volume administered ( ml) Blood Product volume administered (ml) Total IV fluid infused 400 10/21/25 13:47 PEDIATRIC CRITICAL CARE NURSE.UF Anesthesia Postop Eval I: Summary Notes Anesthesia Complication No 10/21/25 13:47 PEDIATRIC CRITICAL CARE NURSE.[facility] Anesthesia Complication Comment: Post-operative progress note Anesthesia: Postop Eval II Evaluation Mental status: Awake and Calm Pain Level: 1 nausea: No Vomiting: No Complications Anesthesia Complication: No
--- NOTE | 2025-10-21 18:28 | PCM.POSTANE2 ---
Anesthesia Postop Eval I Sum Postop Eval Completion status Anesthesia document: Postop Eval 1 completed: Yes Anesthesia Postop Eval I Summary Anesthesia Postop Eval I Summary: Anesthesia Postop Eval I: Assessment Summary Airway patent Yes 10/21/25 13:47 SOYBEAN GROWER.AHUF Spontaneous unlabored Yes 10/21/25 13:47 SOYBEAN GROWER.UF respirations Mental status nausea No 10/21/25 13:47 SOYBEAN GROWER.AHUF Vomiting No 10/21/25 13:47 SOYBEAN GROWER.UF Anesthesia Postop Eval I: Fluid Summary Crystalloid volume administer 400 10/21/25 13:47 SOYBEAN GROWER.AHUF (ml) Colloids volume administered ( ml) Blood Product volume administered (ml) Total IV fluid infused 400 10/21/25 13:47 SOYBEAN GROWER.UF Anesthesia Postop Eval I: Summary Notes Anesthesia Complication No 10/21/25 13:47 SOYBEAN GROWER.[facility] Anesthesia Complication Comment: Post-operative progress note Anesthesia: Postop Eval II Evaluation Mental status: Awake and Calm Pain Level: 1 nausea: No Vomiting: No Complications Anesthesia Complication: No
== END 2025-10-21 14:35 | disposition home or self-care (01) ==
LOC: SDC 11:47 → AC 11:48
PROVIDERS: PCP Family Medicine; Referring Provider Obstetrics & Gynecology; Visit Provider Obstetrics & Gynecology
PROC: 0UDB8ZZ Extraction of Endometrium, Via Natural or Artificial Opening Endoscopic (ICD-10-PCS; CPT 58558; principal; 2025-10-21 13:15)
DX: N95.0 Postmenopausal bleeding (principal); Z86.718 Personal history of other venous thrombosis and embolism; Z86.711 Personal history of pulmonary embolism; K21.9 Gastro-esophageal reflux disease without esophagitis; Z85.3 Personal history of malignant neoplasm of breast; N84.0 Polyp of corpus uteri; Z79.82 Long term (current) use of aspirin; Z79.899 Other long term (current) drug therapy
CPT/HCPCS: 58558; 00952; 85027; 86850; 86900; 86901; 88305